=== PATIENT | male | born 1935 | race Caucasian/White ===

== ENCOUNTER 2017-06-23 18:06 | Inpatient (IN) | payer MEDICARE, BC ==
[~2017-06-23] VITALS: Ht 177.8 cm; Wt 131.0 kg
[~2017-06-23 18:06] MED LIST: AMLO2.5T PO; ENOX30P SQ; FOLI800T12 PO; LEVO75TA3 PO; OCUVTAB4 PO; OXYC1SOL5 PO; TAB-TAB PO; VITA-13 PO; Z.0.COMMODE-3:1; Z.0.CPM; Z.0.WALKERFRONT
--- NOTE | 2017-06-23 18:27 | PD ---
HPI Chief Complaint: fall Time Seen by Provider: 18:18 Travel History International Travel<30 days: No Contact w/Intl Traveler<30days: No History of Present Illness HPI 82-year-old male presents after he had a trip and fall injuring his left hip and knee. He has pain only to that area. Pain is worse with movement. He did not hit his head or blackout. He denies any other concurrent complaints. He denies any other modifying factors. This occurred shortly prior to arrival. He arrives by ambulance. PFSH Past Medical History Asthma: No Blood Disorders: No Anxiety: No Depression: No Heart Rhythm Problems: No Cancer: Yes (COLON) Cardiovascular Problems: No High Cholesterol: No Chemotherapy: No Chest Pain: No Congestive Heart Failure: No COPD: No Diabetes: No Endocrine: Yes Glaucoma: No Genitourinary: No Hepatitis: No Hiatal Hernia: No Hypertension: Yes Immune Disorder: No Musculoskeletal: Yes (ARTHRITIS, BACK ISSUES) Neurologic: No Psychiatric: No Reproductive: No Respiratory: Yes (SOB) Myocardial Infarction: No Radiation Therapy: No Sleep Apnea: No Thyroid Disease: Yes Past Surgical History Abdominal Surgery: Yes (COLON RESECTION) AICD: No Arteriovenous Shunt: No Cardiac Surgery: No Ear Surgery: No Endocrine Surgery: No Eye Surgery: Yes (INJECTION FOR MACULAR DEGENERATION) Genitourinary Surgery: No Gynecologic Surgery: No Insulin Pump: No Joint Replacement: Yes (DAHIANA. HIPS) Oral Surgery: Yes (TONSILLECTOMY AND ADNOIDS) Pacemaker: No Thoracic Surgery: No Social History Alcohol Use: Yes Tobacco Use: Yes (PIPE) Substance Use: No Allergies-Medications (Allergen,Severity, Reaction): Coded Allergies: No Known Allergies (Verified , 04/18/15) Reported Meds & Prescriptions Reported Meds & Active Scripts Active Walker Front Wheel (Z.0.walkerfront) Device 1 Unit Cpm Machine (Z.0.cpm) Device 1 Unit Commode-3:1 (Z.0.commode-3:1) Device 1 Unit Reported Vitamin D3 (Cholecalciferol) 1,000 Unit Tab 1,000 Units PO DAILY Multiple Vitamin 1 Tab 1 Tab PO DAILY Levothyroxine (Levothyroxine Sodium) 75 Mcg Tab 75 Mcg PO DAILY Amlodipine (Amlodipine Besylate) 2.5 Mg Tab 2.5 Mg PO DAILY Review of Systems Except as stated in HPI: all other systems reviewed are Neg Physical Exam Narrative General: 82 y/o patient in no apparent distress Skin: Warm and dry Eyes: Pupils equal normal NECK: no pain with palpation, nexus criteria negative Cardiovascular: Regular rate and rhythm Respiratory: Normal respiratory effort noted, clear to auscultation bilaterally Abdomen: soft, nontender, nondistended Extremities: Pain with palpation of left hip and knee, no lacerations over, neurovascularly intact, no pain with rom of other joints Neuro: awake, alert, sensation and motor grossly intact Data Data Last Documented VS Vital Signs Date Time Temp Pulse Resp B/P (MAP) Pulse Ox O2 Delivery O2 Flow Rate FiO2 06/23/17 18:34 66 16 99 Room Air 06/23/17 18:31 98.0 176/77 (110) Orders Orders Femur (Ap & Lat/2vws) (06/23/17 ) Knee, Complete (4vws) (06/23/17 ) Pelvis, Ap Only (Routine) (06/23/17 ) MDM Medical Decision Making Medical Screen Exam Complete: Yes Emergency Medical Condition: Yes Medical Record Reviewed: Yes (Past history confirmed) Differential Diagnosis Fracture, strain, dislocation Narrative Course Will check x-ray and reevaluate Physician Communication Physician Communication dr akhtar to follow xray and reevaluate Alicia Dawson MD Jun 23, 2017 18:27
[2017-06-23 18:31] VITALS: BP 176/77; PULSE 66; RESP 16; TEMP 98; O2SAT 98
[2017-06-23] MEDS ORDERED: LEVO75TA3 PO (18:37)
[2017-06-23] MEDS ORDERED: MULTTAB67 PO (18:37)
[2017-06-23] MEDS ORDERED: AMLO2.5T PO (18:37)
[2017-06-23] MEDS ORDERED: VITA100064 PO (18:37)
--- NOTE | 2017-06-23 19:12 | RADRPT ---
EXAM DATE/TIME: 06/23/2017 18:35 [facility] COMPARISON: No previous studies available for comparison. INDICATIONS : Left proximal to mid shaft femur pain post fall. MEDICAL HISTORY : Arthritis. Hypertension SURGICAL HISTORY : Total knee replacement, left. Total knee replacement, right. Bilateral hip arthroplasty ENCOUNTER: Initial ACUITY: 1 day PAIN SCORE: 10/10 LOCATION: Left femur FINDINGS: Total hip arthroplasty is seen bilaterally on the right side appears intact. There is a fracture invo lving the left proximal femur adjacent to femoral component arthroplasty. CONCLUSION: Left proximal femoral fracture. Jose Ariza MD on June 23, 2017 at 19:08 Board Certified Radiologist. This report was verified electronically.
--- NOTE | 2017-06-23 19:12 | PD ---
Physical Exam Narrative General: The patient is a well-developed well-nourished male in no acute distress. Head and Neck exam: Head is normocephalic atraumatic. Eyes: EOMI, pupils are equal round and reactive to light. Nose: Midline septum with pink mucous membranes Mouth: Dentition unremarkable. Moist mucus membranes. Posterior oropharynx is not erythematous. No tonsillar hypertrophy. Uvula midline. Airway patent. Neck: No palpable lymphadenopathy. No nuchal rigidity. No thyromegaly. Cardiovascular: Regular rate and rhythm without murmurs, gallops, or rubs. Lungs: Clear to auscultation bilaterally. No wheezes, rhonchi, or rales. Abdomen: Soft, without tenderness to palpation in all 4 quadrants of the abdomen. No guarding, rebound, or rigidity. Normal bowel sounds are audible. No tenderness on palpation of McBurney's point. Extremities: No clubbing, cyanosis, or edema. 2+ pulses in all 4 extremities. The patient denies having any having any extremity pain on palpation of his upper extremities. The right lower extremity has no tenderness on palpation and full range of motion. The Patient's left lower extremity is propped up underneath the left knee for comfort. The patient reports the pain is minimal when it is not moved. The patient reports that the pain is prominent when he attempts to flex the hip or the knee any further. There is no visible shortening or rotation. The patient has intact sensation over all digits. The patient has less than 3 second capillary refill. Back: No spinous process tenderness to palpation. No costovertebral angle tenderness to palpation. Neurologic Exam: Grossly nonfocal. Skin Exam: No rash noted. Intact skin that is warm and dry. Data Data Last Documented VS Vital Signs Date Time Temp Pulse Resp B/P (MAP) Pulse Ox O2 Delivery O2 Flow Rate FiO2 06/23/17 19:32 20 97 Room Air 06/23/17 18:34 66 06/23/17 18:31 98.0 176/77 (110) Orders Orders Femur (Ap & Lat/2vws) (06/23/17 ) Knee, Complete (4vws) (06/23/17 ) Pelvis, Ap Only (Routine) (06/23/17 ) Electrocardiogram (06/23/17 19:18) Complete Blood Count With Diff (2/4/18 19:18) Comprehensive Metabolic Panel (06/23/17 19:18) Prothrombin Time / Inr (Pt) (06/23/17 19:18) Act Partial Throm Time (Ptt) (06/23/17 19:18) Iv Access Insert/Monitor (06/23/17 19:18) Ecg Monitoring (06/23/17 19:18) Oximetry (06/23/17 19:18) Admit Order (Ed Use Only) (06/23/17 20:38) Consult Orthopedic (06/23/17 ) Labs Laboratory Tests Test 06/23/17 19:30 White Blood Count 5.6 TH/MM3 Red Blood Count 3.18 MIL/MM3 Hemoglobin 9.4 GM/DL Hematocrit 29.0 % Mean Corpuscular Volume 91.3 FL Mean Corpuscular Hemoglobin 29.7 PG Mean Corpuscular Hemoglobin Concent 32.5 % Red Cell Distribution Width 23.0 % Platelet Count 205 TH/MM3 Mean Platelet Volume 7.7 FL Neutrophils (%) (Auto) 62.8 % Lymphocytes (%) (Auto) 23.7 % Monocytes (%) (Auto) 8.0 % Eosinophils (%) (Auto) 4.9 % Basophils (%) (Auto) 0.6 % Neutrophils # (Auto) 3.5 TH/MM3 Lymphocytes # (Auto) 1.3 TH/MM3 Monocytes # (Auto) 0.5 TH/MM3 Eosinophils # (Auto) 0.3 TH/MM3 Basophils # (Auto) 0.0 TH/MM3 CBC Comment AUTO DIFF Differential Total Cells Counted 100 Neutrophils % (Manual) 64 % Band Neutrophils % 5 % Lymphocytes % 17 % Monocytes % 5 % Eosinophils % 6 % Basophils % 1 % Neutrophils # (Manual) 4.0 TH/MM3 Metamyelocytes 1 % Myelocytes 1 % Differential Comment FINAL DIFF MANUAL Platelet Estimate NORMAL Platelet Morphology Comment NORMAL Prothrombin Time 10.6 SEC Prothromb Time International Ratio 1.0 RATIO Activated Partial Thromboplast Time 22.6 SEC Blood Urea Nitrogen 13 MG/DL Creatinine 0.95 MG/DL Random Glucose 108 MG/DL Total Protein 7.5 GM/DL Albumin 3.8 GM/DL Calcium Level 9.0 MG/DL Alkaline Phosphatase 92 U/L Aspartate Amino Transf (AST/SGOT) 25 U/L Alanine Aminotransferase (ALT/SGPT) 19 U/L Total Bilirubin 0.3 MG/DL Sodium Level 142 MEQ/L Potassium Level 3.7 MEQ/L Chloride Level 109 MEQ/L Carbon Dioxide Level 29.6 MEQ/L Anion Gap 3 MEQ/L Estimat Glomerular Filtration Rate 76 ML/MIN [facility] Medical Record Reviewed: Yes Supervised Visit with TAMIKO: No Interpretation(s) Last Impressions Pelvis X-Ray 06/23/17 Signed Impressions: Service Date/Time: Friday, June 23, 2017 18:35 - CONCLUSION: Left proximal femoral fracture. Jose Ariza MD Knee X-Ray 06/23/17 Signed Impressions: Service Date/Time: Friday, June 23, 2017 18:42 - CONCLUSION: Intact total knee arthroplasty for technique. Jose Ariza MD Femur X-Ray 06/23/17 Signed Impressions: Service Date/Time: Friday, June 23, 2017 18:40 - CONCLUSION: Left proximal femoral fracture. Jose Ariza MD Narrative Course During the course of the patients emergency department visit, the patients history, examination, and differential diagnosis were reviewed with the patient. The patient was placed on a compliance monitor with oximetry and frequent blood pressure monitoring. The patient was initially seen by Dr. Dawson. Please see her complete history and physical. The patient's case was checked out to me at the conclusion of her shift to review x-ray results after the patient reportedly tripped and fell. The patient on my arrival to the room reports that he tripped and fell at approximately 5 PM. He landed on his left side. He denies hitting his head or losing consciousness. He reports that he is normally on a low-dose aspirin daily, however he recently discontinued this for a dental appointment that is upcoming. The patient reports having left leg pain since the fall. He denies having any neck pain, paresthesias, or weakness of his extremities. He reports that he has not been able to walk since the fall. The patient reports that he' s had bilateral hip replacements, bilateral knee surgeries. He reports that his orthopedic physician is Dr. Mascorro. He reports that he last had left hip surgery in 2004. The patient was initially provided morphine for pain, Zofran for nausea, normal saline maintenance IV fluids were started. The patient had an EKG done that shows a sinus rhythm heart rate of 62, QRS duration is 103 ms, QTC [address] segment elevation is noted. The patients laboratory studies were reviewed and remarkable for a white count of 5.6, hemoglobin 9.4, platelets 205 with 4.9 eosinophils. CMP is remarkable for chloride of 109, anion gap 3, glucose 108, PT 10.6, PTT 22.6 Radiology studies were reviewed and remarkable for a fracture involving the left proximal femur adjacent to the femoral component arthroplasty. Left knee x -ray is otherwise unremarkable. The patients results were discussed with the patient, including the plan of care. I explained that further testing and/ or monitoring is indicated based on the patients history, examination, and/ or laboratory findings. Therefore, I recommended admission for additional evaluation. The patient expressed understanding and was agreeable with this plan. The patient was admitted to the hospital in stable condition and sent to a bed under the care of the [facility] service. Physician Communication Physician Communication The patient's case including history, pertinent physical examination findings, and laboratory studies were discussed with Dr. Gibson. It was agreed that the patient would be admitted to the [facility] service. I spoke with the covering orthopedic physician, Dr. Rivera at 1950. He will discuss this he recommended that a consultation be placed with Dr. Mascorro for the morning. Diagnosis Primary Impression: Fracture of proximal end of left femur Qualified Codes: S72.002A - Fracture of unspecified part of neck of left femur , initial encounter for closed fracture Additional Impression: Fall Qualified Codes: W19.XXXA - Unspecified fall, initial encounter Admitting Information Admitting Physician Requests: Admit Quin Gr MD Jun 23, 2017 19:12
--- NOTE | 2017-06-23 19:30 | RADRPT ---
EXAM DATE/TIME: 06/23/2017 18:40 [facility] COMPARISON: No previous studies available for comparison. INDICATIONS : Left proximal to mid shaft femur pain post fall. MEDICAL HISTORY : Arthritis. Hypertension SURGICAL HISTORY : Total knee replacement, left. Total knee replacement, right. Bilateral hip arthroplasty ENCOUNTER: Initial ACUITY: 1 day PAIN SCORE: 10/10 LOCATION: Left Femur FINDINGS: Total hip arthroplasty is seen on the left and the acetabular component appears intact. There is a fr acture involving the proximal femur adjacent to the femoral component without any significant angulat ion or displacement. CONCLUSION: Left proximal femoral fracture. Jose Ariza MD on June 23, 2017 at 19:27 Board Certified Radiologist. This report was verified electronically.
--- NOTE | 2017-06-23 19:31 | RADRPT ---
EXAM DATE/TIME: 06/23/2017 18:42 [facility] COMPARISON: FEMUR LEFT (AP & LAT/2VWS), June 23, 2017, 18:40. INDICATIONS : Left proximal to mid shaft femur pain post fall. MEDICAL HISTORY : Arthritis. Hypertension SURGICAL HISTORY : Total knee replacement, left. Total knee replacement, right. Bilateral hip ar throplasty ENCOUNTER: Initial ACUITY: 1 day PAIN SCORE: 10/10 LOCATION: Left femur FINDINGS: Total knee arthroplasty is in place. The femoral, tibial, and patellar components appear intact. Th ere are no signs of loosening or fracture. Chronic atherosclerotic calcifications are seen involving the visualized arteries. Diffuse osteopenia is seen and there is a fracture of proximal femur discuss ed on the patient's femur radiographs. CONCLUSION: Intact total knee arthroplasty for renettaJuliana Ariza MD on June 23, 2017 at 19:28 Board Certified Radiologist. This report was verified electronically.
[2017-06-23 19:32] VITALS: RESP 20; O2SAT 97
[2017-06-23 19:44] LABS: AUTOMATED NEUTROPHIL # 3.5 TH/MM3 (1.8-7.7); BASOPHIL % 0.6 % (0.0-2.0); EOSINOPHIL # 0.3 TH/MM3 (0-0.4); EOSINOPHIL % 4.9 % (0.0-4.0); HEMOGLOBIN 9.4 GM/DL (13.0-17.0); LYMPH % 23.7 % (9.0-44.0); LYMPHOCYTE # 1.3 TH/MM3 (1.0-4.8); MEAN CELL VOLUME 91.3 FL (80.0-100.0); MEAN CORPUSCULAR HEMOGLOBIN 29.7 PG (27.0-34.0); MEAN CORPUSCULAR HGB CONC 32.5 % (32.0-36.0); MEAN PLATELET VOLUME 7.7 FL (7.0-11.0); MONOCYTE # 0.5 TH/MM3 (0-0.9); NEUT % 62.8 % (16.0-70.0); PLATELET COUNT 205 TH/MM3 (150-450); RED BLOOD COUNT 3.18 MIL/MM3 (4.50-5.90); WHITE BLOOD COUNT 5.6 TH/MM3 (4.0-11.0)
[2017-06-23 19:56] LABS: ALBUMIN 3.8 GM/DL (3.4-5.0); AST (GOT) 25 U/L (15-37); BICARBONATE 29.6 MEQ/L (21.0-32.0); BLOOD UREA NITROGEN 13 MG/DL (7-18); CHLORIDE 109 MEQ/L (98-107); CREATININE 0.95 MG/DL (0.60-1.30); GLOMERULAR FILTRATION RATE 76 ML/MIN (>89); GLUCOSE,RANDOM 108 MG/DL (74-106); SODIUM (NA) 142 MEQ/L (136-145)
[2017-06-23 20:00] LABS: ALKALINE PHOSPHATASE 92 U/L (45-117); ALT (GPT) 19 U/L (12-78); PROTHROMBIN TIME - PATIENT 10.6 SEC (9.8-11.6); TOTAL BILIRUBIN ADULT 0.3 MG/DL (0.2-1.0); TOTAL PROTEIN 7.5 GM/DL (6.4-8.2)
[2017-06-23 20:13] LABS: BANDS 5 % (0-6); BASOPHILS 1 % (0-2); LYMPHOCYTES 17 % (9-44); METAMYELOCYTES 1 % (0-1); MONOCYTES 5 % (0-8); MYELOCYTES 1 % (0-0); POLYS (SEG NEUTROPHILS) 64 % (16-70)
[2017-06-23] MEDS ORDERED: SENNOSIDES 8.6 MG TAB PO PRN (20:45)
[2017-06-23] MEDS ORDERED: ONDANSETRON HCL 4 MG/2 ML VIAL IVP PRN (20:45)
[2017-06-23] MEDS ORDERED: MAGNESIUM HYDROXIDE SUSP 30 ML CUP PO PRN (20:45)
[2017-06-23] MEDS ORDERED: BISACODYL 10 MG SUPP RECTAL PRN (20:45)
[2017-06-23] MEDS ORDERED: LACTULOSE SYRUP 20 GM/30 ML CUP PO PRN (20:45)
[2017-06-23] MEDS ORDERED: ACETAMINOPHEN 325 MG TAB PO PRN (20:45)
--- NOTE | 2017-06-23 20:47 | HHI.HP ---
[facility] Primary Care Physician Unknown Admission Diagnosis Left femur fx s/p fall Diagnoses: (1) Fall Diagnosis: Principal (2) Fracture of proximal end of left femur Diagnosis: Principal (3) HTN (hypertension) Diagnosis: Principal (4) Dehydration Diagnosis: Principal Travel History International Travel<30 Days: No Contact w/Intl Traveler <30 Da: No Traveled to Known Affected Are: No History of Present Illness This is an 82-year-old male with a PMH of HTN, Hypothyroidism and h/o Colon CA who was brought to the ER with complaints of left hip and knee pain after fall. Pt reports mechanical trip and fall at home, no LOC or head trauma. Left knee /hip pain severe, 10/10, non-radiating, worse w/ movement. On arrival, BP 176/ 77, HR 66, O2 sat 98% on RA, Afebrile. CBC at baseline. Chemistry essentially unremarkable. INR 1.0. Femur X-ray left proximal femur fracture. Knee X-ray intact total knee arthroplasty. Pelvis X-ray with left proximal femur fracture. Follows w/ Dr. Mascorro as outpatient, Dr. Rivera consulted by ER physician, plan is for surgical intervention. Review of Systems Except as stated in HPI: all other systems reviewed are Neg ROS: 14 point review of systems otherwise negative. Past Family Social History Past Medical History PMH: HTN, Hypothyroidism and h/o Colon CA Past Surgical History PAST SURGICAL HISTORY: Colon Resection, Bilateral Hip Replacement, Knee Replacement, Tonsillectomy, Eye Surgery Allergies: Coded Allergies: No Known Allergies (Verified , 04/18/15) Family History PAST FAMILY HISTORY: Reviewed. No h/o DM or CAD Social History PAST SOCIAL HISTORY: Occasional alcohol. Smokes pipe. Negative for drugs. Physical Exam Vital Signs Vital Signs Date Time Temp Pulse Resp B/P (MAP) Pulse Ox O2 Delivery O2 Flow Rate FiO2 06/23/17 19:32 20 97 Room Air 06/23/17 18:34 66 16 99 Room Air 06/23/17 18:31 98.0 66 16 176/77 (110) 98 Physical Exam PE: GENERAL: Pleasant elderly white male in no acute distress. HEENT: PERRLA, EOMI. No scleral icterus or conjunctival pallor. No lid lag or facial droop. CARDIOVASCULAR: Regular rate and rhythm. No obvious murmurs to auscultation. No chest tenderness to palpation. RESPIRATORY: No obvious rhonchi or wheezing. Clear to auscultation. Breath sounds equal bilaterally. GASTROINTESTINAL: Abdomen soft, non-tender, nondistended. BS normal. MUSCULOSKELETAL: Extremities without clubbing, cyanosis, or edema. No obvious deformities. Decreased ROM of LLE due to injury. Pulses intact. NEUROLOGICAL: Awake, alert and oriented x4. No focal neurologic deficits. Moving both upper and lower extremities spontaneously. Laboratory Laboratory Tests Test 06/23/17 19:30 White Blood Count 5.6 Red Blood Count 3.18 Hemoglobin 9.4 Hematocrit 29.0 Mean Corpuscular Volume 91.3 Mean Corpuscular Hemoglobin 29.7 Mean Corpuscular Hemoglobin Concent 32.5 Red Cell Distribution Width 23.0 Platelet Count 205 Mean Platelet Volume 7.7 Neutrophils (%) (Auto) 62.8 Lymphocytes (%) (Auto) 23.7 Monocytes (%) (Auto) 8.0 Eosinophils (%) (Auto) 4.9 Basophils (%) (Auto) 0.6 Neutrophils # (Auto) 3.5 Lymphocytes # (Auto) 1.3 Monocytes # (Auto) 0.5 Eosinophils # (Auto) 0.3 Basophils # (Auto) 0.0 CBC Comment AUTO DIFF Differential Total Cells Counted 100 Neutrophils % (Manual) 64 Band Neutrophils % 5 Lymphocytes % 17 Monocytes % 5 Eosinophils % 6 Basophils % 1 Neutrophils # (Manual) 4.0 Metamyelocytes 1 Myelocytes 1 Differential Comment FINAL DIFF MANUAL Platelet Estimate NORMAL Platelet Morphology Comment NORMAL Prothrombin Time 10.6 Prothromb Time International Ratio 1.0 Activated Partial Thromboplast Time 22.6 Blood Urea Nitrogen 13 Creatinine 0.95 Random Glucose 108 Total Protein 7.5 Albumin 3.8 Calcium Level 9.0 Alkaline Phosphatase 92 Aspartate Amino Transf (AST/SGOT) 25 Alanine Aminotransferase (ALT/SGPT) 19 Total Bilirubin 0.3 Sodium Level 142 Potassium Level 3.7 Chloride Level 109 Carbon Dioxide Level 29.6 Anion Gap 3 Estimat Glomerular Filtration Rate 76 Result Diagram: 06/23/17192906/23/171929 Caprini VTE Risk Assessment Caprini VTE Risk Assessment: Mod/High Risk (score >= 2) Caprini Risk Assessment Model Point Value = 1 Point Value = 2 Point Value = 3 Point Value = 5 Age 41-60 Minor surgery BMI > 25 kg/m2 Swollen legs Varicose veins or History of unexplained or recurrent spontaneous Oral contraceptives or hormone replacement Sepsis (< 1 month) Serious lung disease, including pneumonia (< 1 month) Abnormal pulmonary function Acute myocardial infarction Congestive heart failure (< 1 month) History of inflammatory bowel disease Medical patient at bed rest Age 61-74 Arthroscopic surgery Major open surgery (> 45 min) Laparoscopic surgery (> 45 min) Malignancy Confined to bed (> 72 hours) Immobilizing plaster cast Central venous access Age >= 75 History of VTE Family history of VTE Factor V Leiden Prothrombin [id number] Lupus anticoagulant Anticardiolipin antibodies Elevated serum homocysteine Heparin-induced thrombocytopenia Other congenital or acquired thrombophilia Stroke (< 1 month) Elective arthroplasty Hip, pelvis, or leg fracture Acute spinal cord injury (< 1 month) Prophylaxis Regimen Total Risk Factor Score Risk Level Prophylaxis Regimen 0-1 Low Early ambulation 2 Moderate Order ONE of the following: *Sequential Compression Device (SCD) *Heparin 5000 units SQ BID 3-4 Higher Order ONE of the following medications: *Heparin 5000 units SQ TID *Enoxaparin/Lovenox 40 mg SQ daily (WT < 150 kg, CrCl > 30 mL/min) *Enoxaparin/Lovenox 30 mg SQ daily (WT < 150 kg, CrCl > 10-29 mL/min) *Enoxaparin/Lovenox 30 mg SQ BID (WT < 150 kg, CrCl > 30 mL/min) AND/OR *Sequential Compression Device (SCD) 5 or more Highest Order ONE of the following medications: *Heparin 5000 units SQ TID (Preferred with Epidurals) *Enoxaparin/Lovenox 40 mg SQ daily (WT < 150 kg, CrCl > 30 mL/min) *Enoxaparin/Lovenox 30 mg SQ daily (WT < 150 kg, CrCl > 10-29 mL/min) *Enoxaparin/Lovenox 30 mg SQ BID (WT < 150 kg, CrCl > 30 mL/min) AND *Sequential Compression Device (SCD) Assessment and Plan Problem List: (1) Fall ICD Code: W19.XXXA - Unspecified fall, initial encounter Status: Acute (2) Fracture of proximal end of left femur ICD Code: S72.002A - Fracture of unspecified part of neck of left femur, initial encounter for closed fracture Status: Acute (3) HTN (hypertension) ICD Code: I10 - Essential (primary) hypertension (4) Dehydration ICD Code: E86.0 - Dehydration Assessment and Plan A/P: 1. Fall: s/p mechanical fall at home, no LOC or head trauma. Pelvic X-ray w/ left hip fracture, Knee X-ray w/ intact knee replacement, images reviewed by me. 2. Left Femur Fx: Femur X-ray w/ left proximal femur fracture, images reviewed by me. Follows w/ Dr. Mascorro as outpatient, Dr. Rivera consulted, plan is for surgical intervention. NPO after midnight, IVF, analgesics/ antiemetics as needed. Pre-op labs reviewed, essentially unremarkable. 3. Dehydration: GFR 76. BUN/creatinine normal. Check UA for possible underlying UTI. IVF for hydration, repeat labs in a.m. 4. HTN: BP 170s, likely compounded by pain from injury. Resume home Norvasc, monitor BP, add antihypertensives for systolic BP >180 5. DVT Prophylaxis: And evaluation postop. 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 7. Case discussed at length with ER physician, labs/imaging/records reviewed by me. Physician Certification 2 Midnight Certification Type: Admission for Inpatient Services Order for Inpatient Services The services are ordered in accordance with Medicare regulations or non- Medicare payer requirements, as applicable. In the case of services not specified as inpatient-only, they are appropriately provided as inpatient services in accordance with the 2-midnight benchmark. Estimated LOS (days): 2 days is the estimated time the patient will need to remain in the hospital, assuming treatment plan goals are met and no additional complications. Post-Hospital Plan: Not yet determined Problem Qualifiers (1) Fall: Qualified Codes: W19.XXXA - Unspecified fall, initial encounter (2) Fracture of proximal end of left femur: Qualified Codes: S72.002A - Fracture of unspecified part of neck of left femur , initial encounter for closed fracture Chica Gibson MD Jun 23, 2017 20:47
[2017-06-23] MEDS ORDERED: MORPHINE SULFATE 2 MG/ML INJ IV PUSH ONE (21:00)
[2017-06-23] MEDS ORDERED: ONDANSETRON HCL 4 MG/2 ML VIAL IV ONE (21:00)
[2017-06-23] MEDS: SODIUM CHLOR 0.9% 1000 ML INJ 1,000 ML IV SCH ×2 (21:00→21:22)
[2017-06-23] MEDS: SODIUM CHLORIDE 0.9% FLUSH 10 ML FLUSH IV FLUSH SCH (21:22)
[2017-06-23] MEDS: DOCUSATE SODIUM 50 MG/SENNA 8.6 MG TAB PO SCH (21:23)
[2017-06-23] MEDS ORDERED: POVIDONE IODINE 5% (ANTISEPSIS KIT) 4 APPLICATIONS EACH NARE PRN (22:00)
[2017-06-23] MEDS ORDERED: LACTATED RINGER'S 1000 ML IV PRN (22:00)
[2017-06-23] MEDS ORDERED: SODIUM CHLORID 0.9% 500 ML IV PRN (22:00)
[2017-06-23] MEDS ORDERED: CHLORHEXIDINE GLUCONATE 2 % 1 PACK (2 CLOTHS) TOPICAL PRN (22:00)
[2017-06-24] VITALS: BP 107/64; PULSE 70; RESP 16; TEMP 97.2; O2SAT 95
[2017-06-24] MEDS: MORPHINE SULFATE 2 MG/ML INJ IV PUSH PRN ×5 (03:48→20:59)
[2017-06-24] MEDS: LEVOTHYROXINE SODIUM 75 MCG TAB PO SCH ×2 (03:49→09:58)
[2017-06-24 07:42] LABS: AUTOMATED NEUTROPHIL # 4.4 TH/MM3 (1.8-7.7); BASOPHIL % 0.3 % (0.0-2.0); EOSINOPHIL # 0.2 TH/MM3 (0-0.4); EOSINOPHIL % 2.7 % (0.0-4.0); HEMATOCRIT 26.2 % (39.0-51.0); HEMOGLOBIN 8.5 GM/DL (13.0-17.0); LYMPH % 19.9 % (9.0-44.0); LYMPHOCYTE # 1.3 TH/MM3 (1.0-4.8); MEAN CELL VOLUME 91.6 FL (80.0-100.0); MEAN CORPUSCULAR HEMOGLOBIN 29.9 PG (27.0-34.0); MEAN CORPUSCULAR HGB CONC 32.6 % (32.0-36.0); MEAN PLATELET VOLUME 7.8 FL (7.0-11.0); MONO % 7.8 % (0.0-8.0); MONOCYTE # 0.5 TH/MM3 (0-0.9); NEUT % 69.3 % (16.0-70.0); PLATELET COUNT 178 TH/MM3 (150-450); RED BLOOD COUNT 2.86 MIL/MM3 (4.50-5.90); RED CELL DISTRIBUTION WIDTH 22.5 % (11.6-17.2); WHITE BLOOD COUNT 6.3 TH/MM3 (4.0-11.0)
--- NOTE | 2017-06-24 07:55 | MB ---
cc: CAHNCE FERGUSON DATE OF ADMISSION 06/23/2017 DATE OF CONSULTATION 06/24/2017 REASON FOR CONSULTATION Nondisplaced left proximal femur fracture. CONSULTING PHYSICIAN Dr. Gibson HISTORY Mr. Mcintosh is an 82-year-old male who has a history of hypertension, hypothyroidism and colon cancer. He has a history of previous left total hip arthroplasty. He states that he has had two hip replacement surgeries. He most recently had a left hip replacement done in approximately [address] Mascorro. He had a fall yesterday. He describes a mechanical fall. He denies dizziness, syncope or loss of consciousness. He has pain with movement of his left leg. He is unable to stand or bear weight on his left leg. He is currently awake and alert on the orthopedic floor. His only complaint is his left hip and thigh. PAST MEDICAL HISTORY ILLNESSES 1. Hypertension. 2. Hypothyroidism. 3. History of colon cancer. SURGERIES 1. Colon resection. 2. Bilateral hip replacement. 3. Bilateral knee replacement. 4. Tonsillectomy. 5. Eye surgery. ALLERGIES No known drug allergies. FAMILY HISTORY Noncontributory. SOCIAL HISTORY The patient denies drug use. He occasionally drinks alcohol. He smokes a pipe occasionally. REVIEW OF SYSTEMS The patient denies headache, visual changes, neck pain, chest pain, shortness of breath, abdominal pain, nausea, vomiting, fevers or chills, numbness or tingling of extremities or recent weight loss. He complains of left thigh pain. PHYSICAL EXAMINATION GENERAL: The patient is a well-developed, well-nourished 82-year male. He is awake and alert. He is alert and oriented x3. He is in no acute distress. VITAL SIGNS: Temperature 97.2, pulse 70, respirations 16, blood pressure 107/64, O2 sat 95% on room air. HEAD: The patient is normocephalic. Pupils are equal. NECK: Soft, nontender. Trachea is midline. ABDOMEN: Soft, nontender, nondistended. EXTREMITIES: Examination of the bilateral upper extremities reveals no pain with shoulder, elbow or wrist motion. He has intact sensation in all fingers. He has good capillary refill in all fingers. Skin is intact to both hands. Radial pulses are palpable. Examination of the right leg reveals no pain with hip, knee or ankle motion. The skin is intact. Dorsalis pedis pulse is palpable. Sensation is intact to the right foot. Examination of the left leg reveals a well-healed surgical incision at the left hip. He has some mild discomfort with gentle hip, internal and external rotation. He has minimal pain with gentle knee motion. The calf and thigh compartments are soft. He has no tenderness around his ankle. Dorsalis pedis pulses are palpable. Sensation is intact in the left foot. X-RAYS X-rays of the left femur were reviewed. X-rays reveal a probable nondisplaced left proximal femur periprosthetic fracture. The fracture does not appear to extend completely through the femur. The total hip arthroplasty is in good position. LABORATORY DATA The patient has a white blood cell count of 5.6, hemoglobin 9.4, and hematocrit of 29.0. INR is 1.0. BUN is 13 and creatinine is 0.95. IMPRESSIONS 1. History of bilateral total hip arthroplasty. 2. Mechanical fall with left thigh pain. 3. Probable nondisplaced left proximal femur periprosthetic fracture. 4. Hypertension. 5. Hypothyroidism. PLAN The treatment options were discussed with the patient. X-rays and lab results were reviewed. At this point I would recommend a CT scan of left femur to further delineate the left proximal femur fracture. If the fracture is incomplete, nonsurgical treatment may be an option. The patient will need to be non-weightbearing on his left leg. I will order CT scans for today and follow up with the patient afterwards. If the fracture does extend completely through the femur, surgical intervention may become necessary. The risks of surgery would include bleeding, infection, injury to arteries, nerves, blood vessels, nonunion, malunion, painful hardware as well as medical complications including blood clot, stroke, heart attack and . All questions were answered. A mid-level provider in my office, nurse practitioner or PA, may see this patient on a follow-up basis and continue to implement the objective of this plan including: Starting or adjusting medications, injections of muscle, tendon, bursa or joints, cast application, orthotic or brace application, physical therapy, further radiographic studies including x-ray, MRI, CT, ultrasounds or bone scan, vascular studies, neurologic studies, or other specialist consultations, and proceeding with surgical management as appropriate. MD YOEL Short/SULAIMAN /7:24 AM /7:42 AM
[2017-06-24 08:05] LABS: ALBUMIN 3.5 GM/DL (3.4-5.0); AST (GOT) 20 U/L (15-37); BICARBONATE 29.9 MEQ/L (21.0-32.0); BLOOD UREA NITROGEN 14 MG/DL (7-18); CALCIUM 8.6 MG/DL (8.5-10.1); CHLORIDE 109 MEQ/L (98-107); CREATININE 0.82 MG/DL (0.60-1.30); GLOMERULAR FILTRATION RATE 90 ML/MIN (>89); GLUCOSE,RANDOM 99 MG/DL (74-106); SODIUM (NA) 143 MEQ/L (136-145)
[2017-06-24 08:09] LABS: ALKALINE PHOSPHATASE 81 U/L (45-117); ALT (GPT) 16 U/L (12-78); TOTAL BILIRUBIN ADULT 0.3 MG/DL (0.2-1.0)
[2017-06-24 08:16] VITALS: BP 146/66; PULSE 66; RESP 17; TEMP 96; O2SAT 96
[2017-06-24] MEDS: SODIUM CHLORIDE 0.9% FLUSH 10 ML FLUSH IV FLUSH SCH ×2 (09:00→21:00)
[2017-06-24] MEDS: MULTIVITAMIN TAB PO SCH (09:58)
[2017-06-24] MEDS: CHOLECALCIFEROL (VIT D3) 1000 UNIT TAB PO SCH (09:59)
[2017-06-24] MEDS: DOCUSATE SODIUM 50 MG/SENNA 8.6 MG TAB PO SCH ×2 (09:59→20:48)
[2017-06-24] MEDS: amLODIPine BESYLATE 5 MG TAB PO SCH (09:59)
[2017-06-24] MEDS: SODIUM CHLOR 0.9% 1000 ML INJ 1,000 ML IV SCH ×2 (09:59→10:00)
[2017-06-24 12:09] VITALS: BP 157/60; PULSE 67; RESP 16; TEMP 96.6; O2SAT 96
--- NOTE | 2017-06-24 12:10 | HHI.PR ---
Subjective Remarks Follow-up mechanical fall/left femur fracture 06/24/17-patient seen and examined, then to the left extremity currently tolerable. Nothing by mouth. Pending CT left lower extremity to determine the extent of the fracture. by the bedside Objective Vitals Vital Signs Date Time Temp Pulse Resp B/P (MAP) Pulse Ox O2 Delivery O2 Flow Rate FiO2 06/24/17 08:16 96.0 66 17 146/66 (92) 96 06/24/17 00:00 97.2 70 16 107/64 (78) 95 06/23/17 19:32 20 97 Room Air 06/23/17 18:34 66 16 99 Room Air 06/23/17 18:31 98.0 66 16 176/77 (110) 98 I/O 06/23/17 06/23/17 06/23/17 06/24/17 06/24/17 06/24/17 07:00 15:00 23:00 07:00 15:00 23:00 Intake Total 0 ml Output Total 300 ml Balance -300 ml Intake Oral 0 ml Output Urine Total 300 ml Result Diagram: 06/24/17 0715 06/24/17 0715 Imaging Last Impressions Pelvis X-Ray 06/23/17 0000 Signed Impressions: Service Date/Time: Friday, June 23, 2017 18:35 - CONCLUSION: Left proximal femoral fracture. Jose Ariza MD Knee X-Ray 06/23/17 0000 Signed Impressions: Service Date/Time: Friday, June 23, 2017 18:42 - CONCLUSION: Intact total knee arthroplasty for technique. Jose Ariza MD Femur X-Ray 06/23/17 0000 Signed Impressions: Service Date/Time: Friday, June 23, 2017 18:40 - CONCLUSION: Left proximal femoral fracture. Jose Ariza MD Objective Remarks GENERAL: NAD SKIN: Warm and dry. HEAD: Normocephalic. EYES: No scleral icterus. No injection or drainage. NECK: Supple, trachea midline. No JVD or lymphadenopathy. CARDIOVASCULAR: Regular rate and rhythm without murmurs, gallops, or rubs. RESPIRATORY: Breath sounds equal bilaterally. No accessory muscle use. GASTROINTESTINAL: Abdomen soft, non-tender, nondistended. MUSCULOSKELETAL: No cyanosis, or edema. LLE internal rotated with limited ROM BACK: Nontender without obvious deformity. No CVA tenderness. A/P Problem List: (1) Fall ICD Code: W19.XXXA - Unspecified fall, initial encounter Status: Acute (2) Fracture of proximal end of left femur ICD Code: S72.002A - Fracture of unspecified part of neck of left femur, initial encounter for closed fracture Status: Acute (3) HTN (hypertension) ICD Code: I10 - Essential (primary) hypertension (4) Dehydration ICD Code: E86.0 - Dehydration Assessment and Plan 82-year-old man with 1. Fall: s/p mechanical fall at home, no LOC or head trauma. Pelvic X-ray w/ left hip fracture, Knee X-ray w/ intact knee replacement 2. Left Femur Fx: Femur X-ray w/ left proximal femur fracture, Seen by Orthopedic surgery pending CT lower extremity NPO , IVF, analgesics/antiemetics as needed. 3. Dehydration: GFR 76. BUN/creatinine normal. Continue IVF for hydration 4. HTN Continue home Norvasc 5. DVT Prophylaxis: And evaluation postop. Problem Qualifiers (1) Fall: Qualified Codes: W19.XXXA - Unspecified fall, initial encounter (2) Fracture of proximal end of left femur: Qualified Codes: S72.002A - Fracture of unspecified part of neck of left femur , initial encounter for closed fracture Skinny Tuttle MD Jun 24, 2017 12:10
[2017-06-24] MEDS: SODIUM CHLORIDE 0.9% FLUSH 10 ML FLUSH IV FLUSH PRN ×2 (15:29→16:13)
--- NOTE | 2017-06-24 16:12 | RADRPT ---
EXAM DATE/TIME: 06/24/2017 15:49 [facility] COMPARISON: FEMUR LEFT (AP & LAT/2VWS), June 23, 2017, 18:40. INDICATIONS : Trauma, fall. Evaluate fracture. RADIATION DOSE: 17.01 CTDIvol (mGy) MEDICAL HISTORY : Hypertension. SURGICAL HISTORY : Hip replacement. Knee replacement. ENCOUNTER: Initial ACUITY: 1 day PAIN SCALE: 10/10 LOCATION: Left knee TECHNIQUE: Volumetric scanning of the femur was performed. Using automated exposure control and adjustment of the mA and/or kV according to patient size, radiation dose was kept as low as reasonabl y achievable to obtain optimal diagnostic quality images. DICOM format image data is available elec tronically for review and comparison. FINDINGS: Again seen is the spiral fracture across the femoral component of the bipolar arthroplasty. Moderate artifact is present. The patient does exist just below the lesser trochanter. CONCLUSION: Spiral fracture as above. Adrian Greco MD FACR on June 24, 2017 at 16:08 Board Certified Radiologist. This report was verified electronically.
[2017-06-24 16:40] VITALS: BP 162/64; PULSE 74; RESP 17; TEMP 96.3; O2SAT 94
[2017-06-24 20:16] VITALS: BP 179/69; PULSE 79; RESP 18; TEMP 97.9; O2SAT 95
--- NOTE | 2017-06-24 22:11 | EKG ---
Date Performed: 06/23/2017 Time Performed: 19:38:28 PTAGE: 82 years EKG: Sinus rhythm INFERIOR MYOCARDIAL INFARCTION ABNORMAL ECG NO PREVIOUS TRACING DOCTOR: Jame Fregoso Interpretating Date/Time 06/24/2017 22:03:48
[2017-06-24 23:39] VITALS: BP 190/70; PULSE 79; RESP 19; TEMP 98.5; O2SAT 94
[2017-06-25] MEDS ORDERED: ENALAPRILAT 2.5 MG/2 ML VIAL IV PUSH ONE (00:15)
[2017-06-25] MEDS: SODIUM CHLOR 0.9% 1000 ML INJ 1,000 ML IV SCH ×2 (00:34)
[2017-06-25 05:51] VITALS: BP 171/68; PULSE 80; RESP 18; TEMP 98; O2SAT 95
[2017-06-25] MEDS: LEVOTHYROXINE SODIUM 75 MCG TAB PO SCH (05:58)
[2017-06-25] MEDS: MORPHINE SULFATE 2 MG/ML INJ IV PUSH PRN (06:04)
--- NOTE | 2017-06-25 06:40 | PD.ORT.PN ---
Subjective Subjective Remarks s/p left periprosthetic femur fx no changes. states pain in hip with motion. Objective Vitals Vital Signs Date Time Temp Pulse Resp B/P (MAP) Pulse Ox O2 Delivery O2 Flow Rate FiO2 06/25/17 05:51 98.0 80 18 171/68 (102) 95 06/24/17 23:39 98.5 79 19 190/70 (110) 94 06/24/17 20:16 97.9 79 18 179/69 (105) 95 06/24/17 16:40 96.3 74 17 162/64 (96) 94 06/24/17 12:09 96.6 67 16 157/60 (92) 96 06/24/17 08:16 96.0 66 17 146/66 (92) 96 I/O 06/24/17 06/24/17 06/24/17 06/25/17 06/25/17 06/25/17 07:00 15:00 23:00 07:00 15:00 23:00 Intake Total 0 ml 902 ml 360 ml 1957 ml Output Total 300 ml 600 ml 250 ml Balance -300 ml 902 ml -240 ml 1707 ml Intake Oral 0 ml 360 ml 360 ml IV Total 902 ml 1597 ml Output Urine Total 300 ml 600 ml 250 ml # Voids 3 # Bowel Movements 0 0 Result Diagram: 06/24/1715 06/24/1715 Objective Remarks LLE: pain in hip with motion. full sensation distally. Assessment & Plan Assessment and Plan 1) Left Periprosthetic Proximal Femur Fx -CT scan reviewed. well aligned. would recommend nonop treatment at this time. as long as maintains current alignment, reasonable chance it will heal well on own. if shifts at all, will require surgical intervention -TTWB -no quad sets or leg lifts -PT consulted -will likely require rehab placement -will monitor and follow along. -lovenox 30mg BID started today Simba Soto/First Maria Del Carmen MAI Jun 25, 2017 06:40
[2017-06-25] MEDS ORDERED: VITA2000 PO (06:42)
[2017-06-25] MEDS ORDERED: WALKER/ADULT/FO1 MIS (06:42)
[2017-06-25] MEDS ORDERED: HYDR-3580 PO (06:42)
[2017-06-25] MEDS ORDERED: CALCTAB19 PO (06:42)
[2017-06-25] MEDS ORDERED: XARE10TA PO (06:42)
[2017-06-25] MEDS ORDERED: VITA500012 PO (06:42)
[2017-06-25 08:00] VITALS: BP 181/66; PULSE 85; RESP 17; TEMP 99.9; O2SAT 92
[2017-06-25] MEDS: DOCUSATE SODIUM 50 MG/SENNA 8.6 MG TAB PO SCH ×2 (10:05→23:05)
[2017-06-25] MEDS: amLODIPine BESYLATE 5 MG TAB PO SCH (10:05)
[2017-06-25] MEDS: CHOLECALCIFEROL (VIT D3) 1000 UNIT TAB PO SCH (10:05)
--- NOTE | 2017-06-25 10:05 | HHI.PR ---
Subjective Remarks Follow-up mechanical fall/left femur fracture 06/24/17-patient seen and examined, then to the left extremity currently tolerable. Nothing by mouth. Pending CT left lower extremity to determine the extent of the fracture. by the bedside 06/25/17-patient seen and examined, complains of left lower extremity soreness and pain with movement. Afebrile. CT left lower extremity with spiral fracture of the left proximal femur Objective Vitals Vital Signs Date Time Temp Pulse Resp B/P (MAP) Pulse Ox O2 Delivery O2 Flow Rate FiO2 06/25/17 08:00 99.9 85 17 181/66 (104) 92 06/25/17 05:51 98.0 80 18 171/68 (102) 95 06/24/17 23:39 98.5 79 19 190/70 (110) 94 06/24/17 20:16 97.9 79 18 179/69 (105) 95 06/24/17 16:40 96.3 74 17 162/64 (96) 94 06/24/17 12:09 96.6 67 16 157/60 (92) 96 I/O 06/24/17 06/24/17 06/24/17 06/25/17 06/25/17 06/25/17 07:00 15:00 23:00 07:00 15:00 23:00 Intake Total 0 ml 902 ml 360 ml 1957 ml Output Total 300 ml 600 ml 250 ml Balance -300 ml 902 ml -240 ml 1707 ml Intake Oral 0 ml 360 ml 360 ml IV Total 902 ml 1597 ml Output Urine Total 300 ml 600 ml 250 ml # Voids 3 # Bowel Movements 0 0 Result Diagram: 06/24/17 0715 06/24/17 0715 Imaging Last Impressions Lower Extremity CT 06/24/17 0000 Signed Impressions: Service Date/Time: Saturday, June 24, 2017 15:49 - CONCLUSION: Spiral fracture as above. Adrian Greco MD FACR Pelvis X-Ray 06/23/17 0000 Signed Impressions: Service Date/Time: Friday, June 23, 2017 18:35 - CONCLUSION: Left proximal femoral fracture. Jose Ariza MD Knee X-Ray 06/23/17 0000 Signed Impressions: Service Date/Time: Friday, June 23, 2017 18:42 - CONCLUSION: Intact total knee arthroplasty for technique. Jose Ariza MD Femur X-Ray 06/23/17 0000 Signed Impressions: Service Date/Time: Friday, June 23, 2017 18:40 - CONCLUSION: Left proximal femoral fracture. Jose Ariza MD Objective Remarks GENERAL: NAD SKIN: Warm and dry. HEAD: Normocephalic. EYES: No scleral icterus. No injection or drainage. NECK: Supple, trachea midline. No JVD or lymphadenopathy. CARDIOVASCULAR: Regular rate and rhythm without murmurs, gallops, or rubs. RESPIRATORY: Breath sounds equal bilaterally. No accessory muscle use. GASTROINTESTINAL: Abdomen soft, non-tender, nondistended. MUSCULOSKELETAL: No cyanosis, or edema. LLE internal rotated with limited ROM BACK: Nontender without obvious deformity. No CVA tenderness. A/P Problem List: (1) Fall ICD Code: W19.XXXA - Unspecified fall, initial encounter Status: Acute (2) Fracture of proximal end of left femur ICD Code: S72.002A - Fracture of unspecified part of neck of left femur, initial encounter for closed fracture Status: Acute (3) HTN (hypertension) ICD Code: I10 - Essential (primary) hypertension (4) Dehydration ICD Code: E86.0 - Dehydration Assessment and Plan 82-year-old man with 1. Fall: s/p mechanical fall at home, no LOC or head trauma. Pelvic X-ray w/ left hip fracture, Knee X-ray w/ intact knee replacement 2. Left Femur Fx: Femur X-ray w/ left proximal femur fracture, CT left lower extremity with spiral fracture of the left proximal femur Seen by Orthopedic surgery and recommends continue nonoperative management analgesics/antiemetics as needed. -TTWB -no quad sets or leg lifts -Lovenox 30mg BID 3. Dehydration: GFR 76. BUN/creatinine normal. Resolved ; will d/c IVF 4. HTN Labile BP likely 2/2 Poorly controlled pain management vs IVF hydration Continue home Norvasc and start Clonidine 0.1mg Q12H 5. DVT Prophylaxis: Lovenox 30mg BID Problem Qualifiers (1) Fall: Qualified Codes: W19.XXXA - Unspecified fall, initial encounter (2) Fracture of proximal end of left femur: Qualified Codes: S72.002A - Fracture of unspecified part of neck of left femur , initial encounter for closed fracture Skinny Tuttle MD Jun 25, 2017 10:05
[2017-06-25] MEDS: ENOXAPARIN SODIUM 30 MG/0.3 ML SYRINGE SQ SCH ×2 (10:06→19:55)
[2017-06-25] MEDS: SODIUM CHLORIDE 0.9% FLUSH 10 ML FLUSH IV FLUSH SCH ×2 (10:07→23:07)
[2017-06-25] MEDS: MULTIVITAMIN TAB PO SCH (10:08)
[2017-06-25] MEDS: ACETAMINOPHEN/HYDROcodone 325 MG/5 MG TAB PO PRN ×3 (10:14→19:55)
[2017-06-25] MEDS: cloNIDine HCL 0.1 MG TAB PO SCH ×2 (11:37→23:05)
[2017-06-25 12:00] VITALS: BP 173/69; PULSE 82; RESP 17; TEMP 98.4; O2SAT 92
[2017-06-25 16:00] VITALS: BP 148/63; PULSE 79; RESP 17; TEMP 96.8; O2SAT 94
[2017-06-25 20:09] VITALS: BP 147/61; PULSE 67; RESP 19; TEMP 96.8; O2SAT 96
[2017-06-25 23:00] VITALS: BP 156/60; PULSE 75; RESP 18; TEMP 97.6; O2SAT 97
[2017-06-26] MEDS: LEVOTHYROXINE SODIUM 75 MCG TAB PO SCH (06:15)
[2017-06-26] MEDS: ACETAMINOPHEN/HYDROcodone 325 MG/5 MG TAB PO PRN ×2 (06:16→10:58)
[2017-06-26] MEDS: ENOXAPARIN SODIUM 30 MG/0.3 ML SYRINGE SQ SCH (06:16)
--- NOTE | 2017-06-26 06:32 | PD.ORT.PN ---
Subjective Subjective Remarks s/p left periprosthetic femur fx no changes. states pain in hip with motion. Objective Vitals Vital Signs Date Time Temp Pulse Resp B/P (MAP) Pulse Ox O2 Delivery O2 Flow Rate FiO2 06/25/17 23:00 97.6 75 18 156/60 (92) 97 06/25/17 20:09 96.8 67 19 147/61 (89) 96 06/25/17 16:00 96.8 79 17 148/63 (91) 94 06/25/17 12:00 98.4 82 17 173/69 (103) 92 06/25/17 08:00 99.9 85 17 181/66 (104) 92 I/O 06/25/17 06/25/17 06/25/17 06/26/17 06/26/17 06/26/17 07:00 15:00 23:00 07:00 15:00 23:00 Intake Total 1957 ml 380 ml 720 ml 480 ml Output Total 250 ml 350 ml Balance 1707 ml 380 ml 370 ml 480 ml Intake Oral 360 ml 380 ml 720 ml 480 ml IV Total 1597 ml Output Urine Total 250 ml 350 ml # Voids 5 2 # Bowel Movements 0 0 0 0 Result Diagram: 06/24/17 0715 06/24/17 0715 Objective Remarks LLE: pain in hip with motion. full sensation distally. Assessment & Plan Assessment and Plan 1) Left Periprosthetic Proximal Femur Fx -will order new xray today to ensure fracture maintaining position -TTWB -no quad sets or leg lifts -PT consulted -will be discharged to rehab today after XRAY done -will monitor and follow along. -lovenox 30mg BID -DC with xarelto -f/u with Dr Ceja or PA in 2 weeks Simba Soto/Patient Partner PAU Jun 26, 2017 06:32
[2017-06-26] MEDS: SODIUM CHLORIDE 0.9% FLUSH 10 ML FLUSH IV FLUSH SCH (09:00)
[2017-06-26] MEDS: DOCUSATE SODIUM 50 MG/SENNA 8.6 MG TAB PO SCH (09:00)
[2017-06-26] MEDS: CHOLECALCIFEROL (VIT D3) 1000 UNIT TAB PO SCH (09:00)
[2017-06-26] MEDS: MULTIVITAMIN TAB PO SCH (09:00)
[2017-06-26] MEDS: amLODIPine BESYLATE 5 MG TAB PO SCH (09:00)
[2017-06-26] MEDS: cloNIDine HCL 0.1 MG TAB PO SCH (09:00)
--- NOTE | 2017-06-26 09:31 | RADRPT ---
EXAM DATE/TIME: 06/26/2017 08:29 [facility] COMPARISON: FEMUR LEFT (AP & LAT/2VWS), June 23, 2017, 18:40. INDICATIONS : Fracture. Patient complains of severe pain in left leg. MEDICAL HISTORY : Hypertension. SURGICAL HISTORY : Hip replacement. Knee replacement. ENCOUNTER: Subsequent ACUITY: 4 - 6 days PAIN SCORE: 10/10 LOCATION: Left Femur. FINDINGS: Nondisplaced fracture of the proximal femur at the level of the femoral component of the prosthesis i s present. No dislocation is seen. A left knee arthroplasty is present in satisfactory position. CONCLUSION: 1. Unchanged proximal left femur fracture. The alignment is anatomic. Khari Jauregui MD on June 26, 2017 at 9:27 Board Certified Radiologist. This report was verified electronically.
== END 2017-06-26 11:05 | DRG 536 ==
LOC: NEPC 18:06 → NEDA 20:40 → N06B 21:35
PROVIDERS: ADMIT Internal Medicine; ATTEND Internal Medicine
DX: S72.002A Fracture of unspecified part of neck of left femur, initial encounter for closed fracture (principal); E86.0 Dehydration; I10 Essential (primary) hypertension; Z96.643 Presence of artificial hip joint, bilateral; E03.9 Hypothyroidism, unspecified; F17.290 Nicotine dependence, other tobacco product, uncomplicated; W01.0XXA Fall on same level from slipping, tripping and stumbling without subsequent striking against object, initial encounter; Y93.9 Activity, unspecified; Y92.009 Unspecified place in unspecified non-institutional (private) residence as the place of occurrence of the external cause; Z96.653 Presence of artificial knee joint, bilateral; Z85.038 Personal history of other malignant neoplasm of large intestine
CPT/HCPCS: 72170; 73552; 73564; 73700; 80053; 85007; 85025; 85027; 85610; 85730; 93005; 99285; J1650; J2270; J2405; J7030

== ENCOUNTER 2017-08-29 13:07 | Inpatient (IN) | payer MEDICARE, BC ==
[~2017-08-29] VITALS: Ht 177.8 cm; Wt 110.4 kg
[~2017-08-29 13:07] MED LIST changes: +CALCTAB19 PO; -ENOX30P SQ; -FOLI800T12 PO; +HYDR-3580 PO; +MULTTAB67 PO; -OCUVTAB4 PO; -OXYC1SOL5 PO; -TAB-TAB PO; -VITA-13 PO; +VITA100064 PO; +VITA2000 PO; +VITA500012 PO; +WALKER/ADULT/FO1 MIS; +XARE10TA PO
[2017-08-29 13:19] VITALS: BP 147/82; PULSE 133; RESP 22; TEMP 97.7; O2SAT 98
[2017-08-29] MEDS ORDERED: SODIUM CHLORIDE 0.9% FLUSH 10 ML FLUSH IVF PRN (13:30)
--- NOTE | 2017-08-29 13:33 | PD ---
HPI Chief Complaint: Tachycardia Time Seen by Provider: 13:18 Travel History International Travel<30 days: No Contact w/Intl Traveler<30days: No Traveled to known affect area: No History of Present Illness HPI 82-year-old male presents with elevated heart rate for the past week. His called his primary who advised him to come to the emergency room today. In the ambulance his heart rate was in the 130s and regular. Patient states that Super Bowsaturday he slipped and fell and sustained a spiral fracture to his left femur that given he has replacement to his knee in that area they have been working on a nonoperative management with him being nonweightbearing on that leg. He states that his last follow-up with that was in July. He denies significant other complaints at this time. Quality is regular. Severity is in the 130s. He denies specific modifying factors. He denies recurrent history of this. PFSH Past Medical History Narrative Medical Confirmed and reviewed records Asthma: No Blood Disorders: No Anxiety: No Depression: No Heart Rhythm Problems: No Cancer: Yes (COLON) Cardiovascular Problems: No High Cholesterol: No Chemotherapy: No Chest Pain: No Congestive Heart Failure: No COPD: No Diabetes: No Endocrine: Yes Glaucoma: No Genitourinary: No Hepatitis: No Hiatal Hernia: No Hypertension: Yes Immune Disorder: No Musculoskeletal: Yes (ARTHRITIS, BACK ISSUES) Neurologic: No Psychiatric: No Reproductive: No Respiratory: Yes (SOB) Myocardial Infarction: No Radiation Therapy: No Sleep Apnea: No Thyroid Disease: Yes Past Surgical History Narrative Surgical Confirmed and reviewed records Abdominal Surgery: Yes (COLON RESECTION) AICD: No Arteriovenous Shunt: No Cardiac Surgery: No Ear Surgery: No Endocrine Surgery: No Eye Surgery: Yes (INJECTION FOR MACULAR DEGENERATION) Genitourinary Surgery: No Gynecologic Surgery: No Insulin Pump: No Joint Replacement: Yes (DAHIANA. HIPS) Oral Surgery: Yes (TONSILLECTOMY AND ADNOIDS) Pacemaker: No Thoracic Surgery: No Other Surgery: Yes Social History Alcohol Use: Yes (occa) Tobacco Use: No Substance Use: No Allergies-Medications (Allergen,Severity, Reaction): Coded Allergies: No Known Allergies (Verified Allergy, Unknown, 06/24/17) Reported Meds & Prescriptions Reported Meds & Active Scripts Active Calcium 600+D 200 (Calcium Carbonate-Vitamin D) 600-200 Mg-Unit Tab 1 Tab PO BID Vitamin D3 (Cholecalciferol) 2,000 Unit Cap 2,000 Units PO DAILY Hydrocodone-Acetaminophen 7.5 Mg-325 Mg Tab 1 Tab PO Q4H PRN Walker/Adult/Folding (Device) 1 Mis Mis Ea .XX DIRECTED Walker Front Wheel (Z.0.walkerfront) Device 1 Unit Cpm Machine (Z.0.cpm) Device 1 Unit Commode-3:1 (Z.0.commode-3:1) Device 1 Unit Reported Gabapentin 100 Mg Cap 100 Mg PO TID Multiple Vitamin 1 Tab 1 Tab PO DAILY Levothyroxine (Levothyroxine Sodium) 75 Mcg Tab 75 Mcg PO DAILY Amlodipine (Amlodipine Besylate) 2.5 Mg Tab 10 Mg PO DAILY Review of Systems Except as stated in HPI: all other systems reviewed are Neg Physical Exam Narrative GENERAL: 82-year-old male in no apparent distress SKIN: Focused skin assessment warm/dry. HEAD: Atraumatic. Normocephalic. EYES: Pupils equal and round. No scleral icterus. No injection or drainage. ENT: No nasal bleeding or discharge. Mucous membranes pink and moist. NECK: Trachea midline. CARDIOVASCULAR: Tachycardic rate and regular rhythm. RESPIRATORY: No accessory muscle use. Clear to auscultation. Breath sounds equal bilaterally. GASTROINTESTINAL: Abdomen soft, non-tender, nondistended. MUSCULOSKELETAL: No obvious deformities. No clubbing. No cyanosis. Mild pitting edema to bilateral lower extremities, mild pain noted over left leg just above the knee which has been chronic since his fracture NEUROLOGICAL: Awake and alert. No obvious cranial nerve deficits. Moves all extremities. Normal speech. Data Data Last Documented VS Vital Signs Date Time Temp Pulse Resp B/P (MAP) Pulse Ox O2 Delivery O2 Flow Rate FiO2 08/29/17 16:14 97 16 138/75 (96) 96 Room Air 08/29/17 13:19 97.7 Orders Orders Electrocardiogram (08/29/17 13:25) B-Type Natriuretic Peptide (08/29/17 13:25) Ckmb (Isoenzyme) Profile (08/29/17 13:25) Complete Blood Count With Diff (08/29/17 13:25) Comprehensive Metabolic Panel (08/29/17 13:25) Magnesium (Mg) (08/29/17 13:25) Prothrombin Time / Inr (Pt) (08/29/17 13:25) Act Partial Throm Time (Ptt) (08/29/17 13:25) Troponin I (08/29/17 13:25) Chest, Single Ap (08/29/17 13:25) Ecg Monitoring (08/29/17 13:25) Bilateral Bp Monitoring (08/29/17 13:25) Iv Access Insert/Monitor (08/29/17 13:25) Oximetry (08/29/17 13:25) Sodium Chloride 0.9% Flush (Ns Flush) (08/29/17 13:30) Femur (Ap & Lat/2vws) (08/29/17 ) Diltiazem Inj (Cardizem Inj) (08/29/17 13:45) Metoprolol Tartrate Inj (Lopressor Inj) (08/29/17 14:06) Sodium Chlor 0.9% 1000 Ml Inj (Ns 1000 M (08/29/17 14:45) D-Dimer (08/29/17 14:36) Diltiazem (Cardizem) (08/29/17 15:30) Ventilation & Perfusion Scan (08/29/17 ) Admit Order (Ed Use Only) (08/29/17 17:03) Labs Laboratory Tests Test 08/29/17 13:38 White Blood Count 7.7 TH/MM3 Red Blood Count 3.04 MIL/MM3 Hemoglobin 8.2 GM/DL Hematocrit 25.9 % Mean Corpuscular Volume 85.3 FL Mean Corpuscular Hemoglobin 27.1 PG Mean Corpuscular Hemoglobin Concent 31.7 % Red Cell Distribution Width 22.7 % Platelet Count 344 TH/MM3 Mean Platelet Volume 7.8 FL Neutrophils (%) (Auto) 65.4 % Lymphocytes (%) (Auto) 20.1 % Monocytes (%) (Auto) 7.1 % Eosinophils (%) (Auto) 7.1 % Basophils (%) (Auto) 0.3 % Neutrophils # (Auto) 5.0 TH/MM3 Lymphocytes # (Auto) 1.6 TH/MM3 Monocytes # (Auto) 0.5 TH/MM3 Eosinophils # (Auto) 0.5 TH/MM3 Basophils # (Auto) 0.0 TH/MM3 CBC Comment AUTO DIFF Differential Comment AUTO DIFF CONFIRMED Ovalocytes 1+ Prothrombin Time 10.5 SEC Prothromb Time International Ratio 1.0 RATIO Activated Partial Thromboplast Time 20.2 SEC D-Dimer Quantitative (PE/DVT) 2.35 MG/L FEU Blood Urea Nitrogen 31 MG/DL Creatinine 2.40 MG/DL Random Glucose 94 MG/DL Total Protein 8.4 GM/DL Albumin 3.8 GM/DL Calcium Level 10.8 MG/DL Magnesium Level 2.2 MG/DL Alkaline Phosphatase 86 U/L Aspartate Amino Transf (AST/SGOT) 13 U/L Alanine Aminotransferase (ALT/SGPT) 18 U/L Total Bilirubin 0.3 MG/DL Sodium Level 144 MEQ/L Potassium Level 3.8 MEQ/L Chloride Level 107 MEQ/L Carbon Dioxide Level 27.6 MEQ/L Anion Gap 9 MEQ/L Estimat Glomerular Filtration Rate 26 ML/MIN Total Creatine Kinase 23 U/L Troponin I LESS THAN 0.02 NG/ML B-Type Natriuretic Peptide 149 PG/ML MDM Medical Decision Making Medical Screen Exam Complete: Yes Emergency Medical Condition: Yes Medical Record Reviewed: Yes (Past history confirmed) Interpretation(s) EKG is atrial flutter at 135 without STEMI criteria CBC & BMP Diagram 08/29/17 13:38 Total Protein 8.4 H, Albumin 3.8, Calcium Level 10.8 H, Magnesium Level 2.2, Alkaline Phosphatase 86, Aspartate Amino Transf (AST/SGOT) 13 L, Alanine Aminotransferase (ALT/SGPT) 18, Total Bilirubin 0.3 Last 24 hours Impressions Chest X-Ray 08/29/17 1325 Signed Impressions: Service Date/Time: August 13:56 - CONCLUSION: Linear opacity at the left lung base representing either subsegmental atelectasis or scar. Otherwise, no acute finding is identified. Armando Barbosa MD Differential Diagnosis A flutter, SVT, PE, anemia, electrolyte abnormality Narrative Course We will check blood work, x-ray imaging and CT pulmonary and dose with 10 of Cardizem and reevaluate the hospital is out of cardizem so will change to lopressor 2.5 mg and monitor Will discuss with cardiology given persistent tachycardia and out of Cardizem. Will place on p.o. Cardizem and as needed IV metoprolol and admit to the hospital for further care, patient updated about results of acute renal failure and stable anemia and agrees to plan, at bedside, VQ pending Physician Communication Physician Communication dr edward states to place on cardizem 60 mg po q6 and give metoprolol 5mg iv q 1 hour as needed for rate control dr hawkins agrees to admit Diagnosis Primary Impression: Atrial flutter with rapid ventricular response Additional Impression: Acute kidney injury (nontraumatic) Admitting Information Admitting Physician Requests: Admit Alicia Dawson MD Aug 29, 2017 13:33
[2017-08-29] MEDS ORDERED: GABA100C4 PO (13:36)
[2017-08-29] MEDS ORDERED: DILTIAZEM HCL 25 MG/5 ML VIAL IV ONE (13:45)
[2017-08-29 14:02] LABS: BASOPHIL % 0.3 % (0.0-2.0); EOSINOPHIL # 0.5 TH/MM3 (0-0.4); EOSINOPHIL % 7.1 % (0.0-4.0); HEMATOCRIT 25.9 % (39.0-51.0); HEMOGLOBIN 8.2 GM/DL (13.0-17.0); LYMPH % 20.1 % (9.0-44.0); LYMPHOCYTE # 1.6 TH/MM3 (1.0-4.8); MEAN CELL VOLUME 85.3 FL (80.0-100.0); MEAN CORPUSCULAR HEMOGLOBIN 27.1 PG (27.0-34.0); MEAN CORPUSCULAR HGB CONC 31.7 % (32.0-36.0); MEAN PLATELET VOLUME 7.8 FL (7.0-11.0); MONO % 7.1 % (0.0-8.0); MONOCYTE # 0.5 TH/MM3 (0-0.9); NEUT % 65.4 % (16.0-70.0); PLATELET COUNT 344 TH/MM3 (150-450); RED BLOOD COUNT 3.04 MIL/MM3 (4.50-5.90); RED CELL DISTRIBUTION WIDTH 22.7 % (11.6-17.2); WHITE BLOOD COUNT 7.7 TH/MM3 (4.0-11.0)
[2017-08-29] MEDS ORDERED: METOPROLOL TARTRATE 5 MG/5 ML VIAL IV PUSH STA (14:06)
[2017-08-29 14:16] LABS: PROTHROMBIN TIME - PATIENT 10.5 SEC (9.8-11.6)
[2017-08-29 14:25] VITALS: BP 160/71; PULSE 132; RESP 21; O2SAT 99
[2017-08-29 14:25] LABS: ALBUMIN 3.8 GM/DL (3.4-5.0); ALT (GPT) 18 U/L (12-78); AST (GOT) 13 U/L (15-37); BICARBONATE 27.6 MEQ/L (21.0-32.0); BLOOD UREA NITROGEN 31 MG/DL (7-18); CALCIUM 10.8 MG/DL (8.5-10.1); CHLORIDE 107 MEQ/L (98-107); GLOMERULAR FILTRATION RATE 26 ML/MIN (>89); GLUCOSE,RANDOM 94 MG/DL (74-106); MAGNESIUM 2.2 MG/DL (1.5-2.5); SODIUM (NA) 144 MEQ/L (136-145)
[2017-08-29 14:29] LABS: ALKALINE PHOSPHATASE 86 U/L (45-117); TOTAL BILIRUBIN ADULT 0.3 MG/DL (0.2-1.0); TOTAL PROTEIN 8.4 GM/DL (6.4-8.2); TROPONIN I LESS THAN 0.02 NG/ML (0.02-0.05)
[2017-08-29] MEDS ORDERED: SODIUM CHLOR 0.9% 1000 ML INJ 1,000 ML IV ONE (14:45)
[2017-08-29 14:48] LABS: OVALOCYTES 1+ (NORMAL)
--- NOTE | 2017-08-29 14:55 | RADRPT ---
EXAM DATE/TIME: 08/29/2017 13:56 [facility] COMPARISON: CHEST PA & LAT, April 08, 2015, 9:22. INDICATIONS : Pt has had elevated blood pressure 5 days. MEDICAL HISTORY : None. SURGICAL HISTORY : Total knee replacement, left. Total knee replacement, right. RT and LT hip replacement. ENCOUNTER: Initial ACUITY: 4 - 6 days PAIN SCORE: 0/10 LOCATION: Bilateral chest FINDINGS: 2 AP views of the chest demonstrate a normal-sized cardiac silhouette. Lungs are underinflated. Linea r opacity is present at the left lung base. No effusion, consolidation, or pneumothorax is visualized . The bones and soft tissues demonstrate no acute finding. There are degenerative changes of the thor acic spine. CONCLUSION: Linear opacity at the left lung base representing either subsegmental atelectasis or scar. Otherwise, no acute finding is identified. Armando Barbosa MD on August 29, 2017 at 14:51 Board Certified Radiologist. This report was verified electronically.
--- NOTE | 2017-08-29 15:17 | RADRPT ---
EXAM DATE/TIME: 08/29/2017 13:51 [facility] COMPARISON: FEMUR LEFT (AP & LAT/2VWS), June 26, 2017, 8:29. INDICATIONS : Pt fell jun 5. Pain when moving LT leg up and down. Pt is non-weight bearing on LT leg. MEDICAL HISTORY : None. SURGICAL HISTORY : Total knee replacement, left. Total knee replacement, right. RT and LT Hip Replacement ENCOUNTER: Initial ACUITY: 4 - 6 months PAIN SCORE: 9/10 LOCATION: Left Leg FINDINGS: There is no fracture or dislocation. The patient is status post left total hip replacement with prost hesis in good position. Left total knee replacement is also noted. CONCLUSION: No acute fracture or dislocation. Bayron Boston MD on August 29, 2017 at 15:13 Board Certified Radiologist. This report was verified electronically.
[2017-08-29] MEDS ORDERED: DILTIAZEM HCL 60 MG TAB PO ONE (15:30)
[2017-08-29 16:14] VITALS: BP 138/75; PULSE 97; RESP 16; O2SAT 96
[2017-08-29] MEDS ORDERED: SODIUM CHLORIDE 0.9% FLUSH 10 ML FLUSH IV FLUSH PRN (17:30)
[2017-08-29] MEDS ORDERED: NALOXONE HCL 0.4 MG/ML AMP IV PUSH PRN (17:30)
--- NOTE | 2017-08-29 18:24 | RADRPT ---
EXAM DATE/TIME: 08/29/2017 17:41 [facility] COMPARISON: CHEST SINGLE AP, August 29, 2017, 13:56. INDICATIONS : Shortness of breath, elevated heart rate. DOSE: 8.1 mCi Tc99m MAA IV 0.9 mCi Tc99m DTPA aerosol MEDICAL HISTORY : Hypertension. SURGICAL HISTORY : Colon resection. Tonsillectomy. Bilateral hip replacement. ENCOUNTER: Initial ACUITY: 1 day PAIN SCALE: 3/10 LOCATION: chest TECHNIQUE: Following five minutes of tidal breathing of DTPA aerosol, planar images of the lungs were performed in eight projections. The patient was then injected with MAA, and eight-view perfusion scan was perf ormed. FINDINGS: There is a fairly homogeneous pattern of aerosol delivery to the periphery of both lungs. Moderate c entral deposition radiopharmaceutical is present. No focal ventilatory defects are seen. The perfusion lung scan demonstrates a fairly homogenous pattern of uptake in both lungs. No large o r moderate segmental or subsegmental defects are seen. CONCLUSION: Low probability for pulmonary embolism. Maurice Marsh MD on August 29, 2017 at 18:21 Board Certified Radiologist. This report was verified electronically.
[2017-08-29] MEDS: SODIUM CHLOR 0.45% 1000 ML INJ 1,000 ML IV SCH ×2 (18:46→21:08)
[2017-08-29 18:47] VITALS: BP 165/86; PULSE 90; O2SAT 97
--- NOTE | 2017-08-29 19:11 | HHI.HP ---
HPI Service [facility] Primary Care Physician Unknown Admission Diagnosis Acute renal failure, a flutter with RVR Diagnoses: Travel History International Travel<30 Days: No Contact w/Intl Traveler <30 Da: No Traveled to Known Affected Are: No History of Present Illness History from patient, at the bedside, ER physician, and review of medical records. Patient reported that for the past 5 days or so, every time he checks on the monitor, his heart rate has been high. It has been in the 110s-130s. He however denies any feelings of palpitations, chest pains, shortness of breath. stated that this is happened to check it at home. On a random check. They then called their PCP today who told him to come to emergency room. states she even stopped taking gabapentin and gas aches for him because she thought that these medications were causing this high heart rate. In the emergency room, patient's heart rate was between 110-130 and he was in A. fib. She was given Cardizem 60 mg p.o. in ER after which the heart rate came down initially. At the time of my exam, patient's heart rate was around 100-120s. He remains to be asymptomatic. Patient denies any cough. Patient denies any fever. Denies any nausea/vomiting/diarrhea. Denies any blood in his stools or his urine. Also stated that he did have some cough occasionally in the past few days and had some cold-like symptoms. But did not require any medications. Patient himself reports of frequent urination. But no burning or pain on urination. Patient had a fall on June 23, 2017 and fractured his left leg. He was managed nonsurgically and was receiving physical therapy at home. He states that he is able to transfer from bed to wheelchair and does exercises on the bed. But not ambulating. Also reports of swelling in his left lower extremity because of this. Patient does have history of hypothyroidism for which he was taking thyroid medications. The states that the dose remains to be the same. He denies any other new medications. He was admitted to a rehab facility from June 27, 2017 to August 11, 2017. No New meds. Review of Systems Except as stated in HPI: all other systems reviewed are Neg Past Family Social History Past Medical History htn no prior hx of cad/chf/afib prior caesar secondary to nsaid in 2014 hypothyroidism colon cancer- diagnosed 1983- s/p resection, no chemo or radiation MUGUS- about 5 yrs ago chronic anemia Past Surgical History colon cancer resection laminectomy 3 hip sx 2 knee sx Allergies: Coded Allergies: No Known Allergies (Verified Allergy, Unknown, 06/24/17) Family History sister- colon cancer Social History smokes pipes - quit no etoh abuse or drug abuse Physical Exam Vital Signs Vital Signs Date Time Temp Pulse Resp B/P (MAP) Pulse Ox O2 Delivery O2 Flow Rate FiO2 08/29/17 18:47 90 165/86 (112) 97 08/29/17 16:14 97 16 138/75 (96) 96 Room Air 08/29/17 14:25 132 21 160/71 (100) 99 Room Air 08/29/17 13:28 134 08/29/17 13:19 97.7 133 22 147/82 (103) 98 Physical Exam GENERAL: This is a well-nourished, well-developed patient, in no apparent distress. SKIN: No rashes, ecchymoses or lesions. Cool and dry. HEAD: Atraumatic. Normocephalic. No temporal or scalp tenderness. EYES: No scleral icterus. No injection or drainage. ENT: Nose without bleeding, purulent drainage or septal hematoma.Airway patent. NECK: Trachea midline. No JVDno meningeal signs. CARDIOVASCULAR: Regular rate and rhythm without murmurs, gallops, or rubs. RESPIRATORY: Clear to auscultation. Breath sounds equal bilaterally. No wheezes , rales, or rhonchi. GASTROINTESTINAL: Abdomen soft, non-tender, nondistended. No guarding. MUSCULOSKELETAL: Extremities without clubbing, cyanosis, No calf tenderness. Left lower extremity bigger than the right. With 3+ pitting edema. NEUROLOGICAL: Awake and alert. Motor and sensory grossly within normal limits. Normal speech. Laboratory Laboratory Tests Test 08/29/17 13:38 White Blood Count 7.7 Red Blood Count 3.04 Hemoglobin 8.2 Hematocrit 25.9 Mean Corpuscular Volume 85.3 Mean Corpuscular Hemoglobin 27.1 Mean Corpuscular Hemoglobin Concent 31.7 Red Cell Distribution Width 22.7 Platelet Count 344 Mean Platelet Volume 7.8 Neutrophils (%) (Auto) 65.4 Lymphocytes (%) (Auto) 20.1 Monocytes (%) (Auto) 7.1 Eosinophils (%) (Auto) 7.1 Basophils (%) (Auto) 0.3 Neutrophils # (Auto) 5.0 Lymphocytes # (Auto) 1.6 Monocytes # (Auto) 0.5 Eosinophils # (Auto) 0.5 Basophils # (Auto) 0.0 CBC Comment AUTO DIFF Differential Comment AUTO DIFF CONFIRMED Ovalocytes 1+ Prothrombin Time 10.5 Prothromb Time International Ratio 1.0 Activated Partial Thromboplast Time 20.2 D-Dimer Quantitative (PE/DVT) 2.35 Blood Urea Nitrogen 31 Creatinine 2.40 Random Glucose 94 Total Protein 8.4 Albumin 3.8 Calcium Level 10.8 Magnesium Level 2.2 Alkaline Phosphatase 86 Aspartate Amino Transf (AST/SGOT) 13 Alanine Aminotransferase (ALT/SGPT) 18 Total Bilirubin 0.3 Sodium Level 144 Potassium Level 3.8 Chloride Level 107 Carbon Dioxide Level 27.6 Anion Gap 9 Estimat Glomerular Filtration Rate 26 Total Creatine Kinase 23 Troponin I LESS THAN 0.02 B-Type Natriuretic Peptide 149 Result Diagram: 08/29/17 1338 08/29/17 1338 Imaging Last 48 hours Impressions Chest X-Ray 08/29/17 1325 Signed Impressions: Service Date/Time: August 13:56 - CONCLUSION: Linear opacity at the left lung base representing either subsegmental atelectasis or scar. Otherwise, no acute finding is identified. Armando Barbosa MD Lung Scan-V Nuclear Medicine 08/29/17 0000 Signed Impressions: Service Date/Time: August 17:41 - CONCLUSION: Low probability for pulmonary embolism. Maurice Marsh MD Femur X-Ray 08/29/17 0000 Signed Impressions: Service Date/Time: August 13:51 - CONCLUSION: No acute fracture or dislocation. MD Jailene Mooni VTE Risk Assessment Caprini VTE Risk Assessment: Mod/High Risk (score >= 2) Caprini Risk Assessment Model Point Value = 1 Point Value = 2 Point Value = 3 Point Value = 5 Age 41-60 Minor surgery BMI > 25 kg/m2 Swollen legs Varicose veins or History of unexplained or recurrent spontaneous Oral contraceptives or hormone replacement Sepsis (< 1 month) Serious lung disease, including pneumonia (< 1 month) Abnormal pulmonary function Acute myocardial infarction Congestive heart failure (< 1 month) History of inflammatory bowel disease Medical patient at bed rest Age 61-74 Arthroscopic surgery Major open surgery (> 45 min) Laparoscopic surgery (> 45 min) Malignancy Confined to bed (> 72 hours) Immobilizing plaster cast Central venous access Age >= 75 History of VTE Family history of VTE Factor V Leiden Prothrombin [id number] Lupus anticoagulant Anticardiolipin antibodies Elevated serum homocysteine Heparin-induced thrombocytopenia Other congenital or acquired thrombophilia Stroke (< 1 month) Elective arthroplasty Hip, pelvis, or leg fracture Acute spinal cord injury (< 1 month) Prophylaxis Regimen Total Risk Factor Score Risk Level Prophylaxis Regimen 0-1 Low Early ambulation 2 Moderate Order ONE of the following: *Sequential Compression Device (SCD) *Heparin 5000 units SQ BID 3-4 Higher Order ONE of the following medications: *Heparin 5000 units SQ TID *Enoxaparin/Lovenox 40 mg SQ daily (WT < 150 kg, CrCl > 30 mL/min) *Enoxaparin/Lovenox 30 mg SQ daily (WT < 150 kg, CrCl > 10-29 mL/min) *Enoxaparin/Lovenox 30 mg SQ BID (WT < 150 kg, CrCl > 30 mL/min) AND/OR *Sequential Compression Device (SCD) 5 or more Highest Order ONE of the following medications: *Heparin 5000 units SQ TID (Preferred with Epidurals) *Enoxaparin/Lovenox 40 mg SQ daily (WT < 150 kg, CrCl > 30 mL/min) *Enoxaparin/Lovenox 30 mg SQ daily (WT < 150 kg, CrCl > 10-29 mL/min) *Enoxaparin/Lovenox 30 mg SQ BID (WT < 150 kg, CrCl > 30 mL/min) AND *Sequential Compression Device (SCD) Assessment and Plan Assessment and Plan Impression: Acute renal failure dehydration new onset affib likely from dehydration r/o pe r/o dvt htn no prior hx of cad/chf/afib prior caesar secondary to nsaid in 2014 hypothyroidism colon cancer- diagnosed 1983- s/p resection, no chemo or radiation MUGUS- about 5 yrs ago chronic anemia Plan: iv hydration at 75cc/hr will follow renal function post hydration echo in am cardizem 60mg po q6hr one now no cardizem iv drip available in hospital start heparin drip for anticoagulation vq scan reviewed - no pe obtain US of bilateral LE for dvt studies cardiology consult pt consult dvt prophylaxis on heparin Discussed Condition With patient, , er md, nursing staff Physician Certification 2 Midnight Certification Type: Admission for Inpatient Services Order for Inpatient Services The services are ordered in accordance with Medicare regulations or non- Medicare payer requirements, as applicable. In the case of services not specified as inpatient-only, they are appropriately provided as inpatient services in accordance with the 2-midnight benchmark. Estimated LOS (days): 2 days is the estimated time the patient will need to remain in the hospital, assuming treatment plan goals are met and no additional complications. Post-Hospital Plan: Home Abdiel Davies MD Aug 29, 2017 19:11
[2017-08-29] MEDS ORDERED: HEPARIN-D5W 25,000 U/250 ML 250 ML IV PRN (19:30)
[2017-08-29 20:00] VITALS: BP 151/78; PULSE 100; RESP 19; TEMP 98.2; O2SAT 92
[2017-08-29] MEDS ORDERED: HEPARIN SODIUM - IV 10,000 UNITS/10 ML VIAL IV PUSH ONE (20:00)
[2017-08-29] MEDS: DILTIAZEM HCL 60 MG TAB PO SCH (21:07)
[2017-08-29] MEDS: CALCIUM/VITAMIN D 250 MG/125 U TAB PO SCH (21:08)
[2017-08-29] MEDS: SODIUM CHLORIDE 0.9% FLUSH 10 ML FLUSH IV FLUSH SCH (21:08)
[2017-08-29 23:45] VITALS: PULSE 121
[2017-08-30] VITALS (12 sets, daily range): BP systolic 117–162; BP diastolic 58–86; PULSE 70–136; RESP 18–21; TEMP 97.3–99; O2SAT 92–99
[2017-08-30] MEDS: DILTIAZEM HCL 60 MG TAB PO SCH ×4 (01:54→21:11)
[2017-08-30 05:27] LABS: AUTOMATED NEUTROPHIL # 3.5 TH/MM3 (1.8-7.7); BASOPHIL # 0.1 TH/MM3 (0-0.2); BASOPHIL % 0.8 % (0.0-2.0); EOSINOPHIL # 0.5 TH/MM3 (0-0.4); EOSINOPHIL % 7.2 % (0.0-4.0); LYMPH % 30.2 % (9.0-44.0); LYMPHOCYTE # 1.9 TH/MM3 (1.0-4.8); MEAN CELL VOLUME 84.9 FL (80.0-100.0); MEAN CORPUSCULAR HEMOGLOBIN 27.4 PG (27.0-34.0); MEAN CORPUSCULAR HGB CONC 32.2 % (32.0-36.0); MEAN PLATELET VOLUME 8.1 FL (7.0-11.0); MONO % 6.8 % (0.0-8.0); MONOCYTE # 0.4 TH/MM3 (0-0.9); PLATELET COUNT 266 TH/MM3 (150-450); RED CELL DISTRIBUTION WIDTH 22.7 % (11.6-17.2); WHITE BLOOD COUNT 6.4 TH/MM3 (4.0-11.0)
[2017-08-30 05:32] LABS: HEMATOCRIT 19.5 % (39.0-51.0); HEMOGLOBIN 6.3 GM/DL (13.0-17.0)
[2017-08-30] MEDS: LEVOTHYROXINE SODIUM 75 MCG TAB PO SCH (05:33)
[2017-08-30] MEDS ORDERED: SODIUM CHLOR 0.9% 250 ML INJ 250 ML IV ONE (05:45)
[2017-08-30 05:55] LABS: BICARBONATE 27.8 MEQ/L (21.0-32.0); CALCIUM 10.2 MG/DL (8.5-10.1); CREATININE 2.2 MG/DL (0.60-1.30)
[2017-08-30 07:47] LABS: OVALOCYTES 1+ (NORMAL)
[2017-08-30] MEDS: SODIUM CHLORIDE 0.9% FLUSH 10 ML FLUSH IV FLUSH SCH ×2 (08:34→21:00)
[2017-08-30] MEDS: MULTIVITAMIN TAB PO SCH (08:35)
[2017-08-30] MEDS: CALCIUM/VITAMIN D 250 MG/125 U TAB PO SCH ×2 (08:35→21:11)
[2017-08-30] MEDS: CHOLECALCIFEROL (VIT D3) 1000 UNIT TAB PO SCH (08:35)
--- NOTE | 2017-08-30 08:55 | PD.CONS ---
HPI Service cardiology Consult Requested By Reason for Consult new onset afib RVR Primary Care Physician Unknown History of Present Illness 82 yo WM with no prior cardiac history with HTN, hypothyroidism, remote history of colon cancer and recent L femur fracture who presented to the ED after recording consistently elevated heart rates on home monitor. Upon evaluation he is found to have acute renal failure, anemia and new onset afib RVR with HR ~ 130 bpm. He feels well and denies chest pain, sob or palpitations. He has been non-weightbearing since L femur fracture last month. Cardizem po 60mg has been initiated with little improvement in rate (IV cardizem is unavailable). Review of labs shows hemoglobin decreased overnight to 6.3; orders have been placed for 2 units PRBC. He denies dark stools or abdominal pain. Creatinine improving after IV fluids. Echo ordered. (Ana Charlton) Review of Systems Consitutional: DENIES: Fatigue, Fever, Chills, Weight gain, Weight loss Respiratory: DENIES: Cough, Snoring, Shortness of breath, Wheezing, Sputum production Cardiovascular: DENIES: Chest pain, Palpitations, Syncope, Tachycardia Gastrointestinal: DENIES: Nausea, Vomiting, Change in bowel habits, Reflux, Bloody stools, Melena (Ana Charlton) Past Family Social History Allergies: Coded Allergies: No Known Allergies (Verified Allergy, Unknown, 06/24/17) Past Medical History htn no prior hx of cad/chf/afib prior caesar secondary to nsaid in 2014 hypothyroidism colon cancer- diagnosed 1983- s/p resection, no chemo or radiation MUGUS- about 5 yrs ago chronic anemia Past Surgical History colon cancer resection laminectomy 3 hip sx 2 knee sx Reported Medications Reported Meds & Active Scripts Active Calcium 600+D 200 (Calcium Carbonate-Vitamin D) 600-200 Mg-Unit Tab 1 Tab PO BID Vitamin D3 (Cholecalciferol) 2,000 Unit Cap 2,000 Units PO DAILY Hydrocodone-Acetaminophen 7.5 Mg-325 Mg Tab 1 Tab PO Q4H PRN Walker/Adult/Folding (Device) 1 Mis Mis Ea .XX DIRECTED Walker Front Wheel (Z.0.walkerfront) Device 1 Unit Cpm Machine (Z.0.cpm) Device 1 Unit Commode-3:1 (Z.0.commode-3:1) Device 1 Unit Reported Gabapentin 100 Mg Cap 100 Mg PO TID Multiple Vitamin 1 Tab 1 Tab PO DAILY Levothyroxine (Levothyroxine Sodium) 75 Mcg Tab 75 Mcg PO DAILY Amlodipine (Amlodipine Besylate) 2.5 Mg Tab 10 Mg PO DAILY Active Ordered Medications Current Medications Medications (Trade) Dose Ordered Sig/Reggie Route Start Time Stop Time Status Last Admin Sodium Chloride 1,000 ml @ 75 mls/hr [id number] IV 08/29/17 18:00 08/29/17 18:46 (NS Flush) 2 ml UNSCH PRN IV FLUSH 08/29/17 17:30 (NS Flush) 2 ml BID IV FLUSH 08/29/17 21:00 08/29/17 21:08 (Narcan Inj) 0.4 mg UNSCH PRN IV PUSH 08/29/17 17:30 (Vitamin D3) 2,000 units DAILY PO 08/30/17 09:00 (Synthroid) 75 mcg DAILY@0600 PO 08/30/17 06:00 08/30/17 05:33 (Oscal-D 250-125) 500 mg BID PO 08/29/17 21:00 08/29/17 21:08 (Theragran) 1 tab DAILY PO 08/30/17 09:00 (Cardizem) 60 mg Q6H PO 08/29/17 20:00 08/30/17 01:54 Sodium Chloride 250 ml @ 15 mls/hr ONCE ONCE IV 08/30/17 05:45 08/30/17 22:24 Family History sister- colon cancer Social History smokes pipes - quit no etoh abuse or drug abuse (Ana Charlton) Physical Exam Vital Signs Vital Signs Date Time Temp Pulse Resp B/P (MAP) Pulse Ox O2 Delivery O2 Flow Rate FiO2 08/30/17 07:37 Room Air 08/30/17 04:00 101 08/30/17 04:00 98.6 100 18 124/73 (90) 94 08/30/17 02:25 101 08/30/17 00:00 Room Air 08/30/17 00:00 97.5 136 18 117/70 (86) 92 08/29/17 23:45 121 08/29/17 21:00 Room Air 08/29/17 20:00 08/29/17 20:00 98.2 100 19 151/78 (102) 92 08/29/17 18:47 90 165/86 (112) 97 08/29/17 16:14 97 16 138/75 (96) 96 Room Air 08/29/17 14:25 132 21 160/71 (100) 99 Room Air 08/29/17 13:28 134 08/29/17 13:19 97.7 133 22 147/82 (103) 98 Physical Exam GENERAL: SKIN: Warm and dry. HEAD: Atraumatic. Normocephalic. EYES: Pupils equal and round. . ENT: No nasal bleeding or discharge. NECK: Trachea midline. No JVD. CARDIOVASCULAR: tachycardic, irregularly irregular, no murmurs RESPIRATORY: No accessory muscle use. Clear to auscultation. Breath sounds equal bilaterally. GASTROINTESTINAL: Abdomen soft, non-tender, nondistended. MUSCULOSKELETAL: Extremities without clubbing, cyanosis, or edema. No obvious deformities. NEUROLOGICAL: Awake and alert. No obvious cranial nerve deficits. Normal speech. PSYCHIATRIC: Appropriate mood and affect; insight and judgment normal. Laboratory Laboratory Tests Test 08/29/17 13:38 08/30/17 04:58 White Blood Count 7.7 6.4 Red Blood Count 3.04 2.30 Hemoglobin 8.2 6.3 Hematocrit 25.9 19.5 Mean Corpuscular Volume 85.3 84.9 Mean Corpuscular Hemoglobin 27.1 27.4 Mean Corpuscular Hemoglobin Concent 31.7 32.2 Red Cell Distribution Width 22.7 22.7 Platelet Count 344 266 Mean Platelet Volume 7.8 8.1 Neutrophils (%) (Auto) 65.4 55.0 Lymphocytes (%) (Auto) 20.1 30.2 Monocytes (%) (Auto) 7.1 6.8 Eosinophils (%) (Auto) 7.1 7.2 Basophils (%) (Auto) 0.3 0.8 Neutrophils # (Auto) 5.0 3.5 Lymphocytes # (Auto) 1.6 1.9 Monocytes # (Auto) 0.5 0.4 Eosinophils # (Auto) 0.5 0.5 Basophils # (Auto) 0.0 0.1 CBC Comment AUTO DIFF AUTO DIFF Differential Comment AUTO DIFF CONFIRMED AUTO DIFF CONFIRMED Ovalocytes 1+ 1+ Prothrombin Time 10.5 Prothromb Time International Ratio 1.0 Activated Partial Thromboplast Time 20.2 83.5 D-Dimer Quantitative (PE/DVT) 2.35 Blood Urea Nitrogen 31 29 Creatinine 2.40 2.20 Random Glucose 94 88 Total Protein 8.4 Albumin 3.8 Calcium Level 10.8 10.2 Magnesium Level 2.2 Alkaline Phosphatase 86 Aspartate Amino Transf (AST/SGOT) 13 Alanine Aminotransferase (ALT/SGPT) 18 Total Bilirubin 0.3 Sodium Level 144 143 Potassium Level 3.8 3.8 Chloride Level 107 108 Carbon Dioxide Level 27.6 27.8 Anion Gap 9 7 Estimat Glomerular Filtration Rate 26 29 Total Creatine Kinase 23 Troponin I LESS THAN 0.02 B-Type Natriuretic Peptide 149 Thyroid Stimulating Hormone 3rd Gen 3.820 Platelet Estimate NORMAL Platelet Morphology Comment NORMAL (Ana Charlton) Result Diagram: 08/30/17 0458 08/30/17 0458 Imaging Last 48 hours Impressions Chest X-Ray 08/29/17 1325 Signed Impressions: Service Date/Time: August 13:56 - CONCLUSION: Linear opacity at the left lung base representing either subsegmental atelectasis or scar. Otherwise, no acute finding is identified. Armando Barbosa MD Lung Scan-V Nuclear Medicine 08/29/17 0000 Signed Impressions: Service Date/Time: August 17:41 - CONCLUSION: Low probability for pulmonary embolism. Maurice Marsh MD Femur X-Ray 08/29/17 0000 Signed Impressions: Service Date/Time: August 13:51 - CONCLUSION: No acute fracture or dislocation. Bayron Boston MD (Ana Charlton) Assessment and Plan Problem List: (1) Atrial flutter with rapid ventricular response ICD Codes: I48.92 - Unspecified atrial flutter Status: Acute (2) HTN (hypertension) ICD Codes: I10 - Essential (primary) hypertension Assessment and Plan 82 yo WM with no prior cardiac history with HTN, hypothyroidism, remote history of colon cancer and recent L femur fracture who presented to the ED after recording consistently elevated heart rates on home monitor. Upon evaluation he is found to have acute renal failure, anemia and new onset afib RVR with HR ~ 130 bpm. He feels well and denies chest pain, sob or palpitations. He has been non-weightbearing since L femur fracture last month. Cardizem po 60mg has been initiated with little improvement in rate (IV cardizem is unavailable). Review of labs shows hemoglobin decreased overnight to 6.3; orders have been placed for 2 units PRBC. He denies dark stools or abdominal pain. Creatinine improving after IV fluids. VQ scan from 08/29 negative. afib RVR- needs improved rate control. Add IV digoxin 0.5, check digoxin level tomorrow am. TSH WNL CHADS-Vasc=3 due to have PRBC today, will watch and wait for now as anemia and ARF are treated. hold heparin (Ana Charlton) Assessment and Plan afib RVR is stress mediated correct anemia dig x 1. monitor level in setting of CKD PO cardizem as BP allows (Stevo Curry MD) Ana Charlton Aug 30, 2017 08:55 Stevo Curry MD Aug 30, 2017 12:51
[2017-08-30] MEDS ORDERED: DIGOXIN 0.5 MG/2 ML VIAL IV PUSH ONE (09:30)
--- NOTE | 2017-08-30 10:23 | RADRPT ---
EXAM DATE/TIME: 08/30/2017 08:41 [facility] COMPARISON: No previous studies available for comparison. INDICATIONS : Bilateral leg swelling. MEDICAL HISTORY : Hypertension. Carcinoma, colon. Thyroid disease. Arthritis. Blood transfusion. Macular degeneration. SURGICAL HISTORY : Tonsillectomy.Colon resection. Bilateral hip replacments. Lumbar surgery. Bilateral knee replacement. ENCOUNTER: Initial ACUITY: 1 day PAIN SCORE: 0/10 LOCATION: Bilateral legs. TECHNIQUE: Venous ultrasound of the left and right leg was performed from the inguinal ligament to the proximal calf. Real-time, color Doppler and spectral tracing, compression and augmentation techniques were us ed. FINDINGS: RIGHT LEG: There is normal compressibility of the deep venous system from the inguinal region to the proximal ca lf. No echogenic clot is seen in the lumen of the common femoral, femoral, popliteal, and posterior tibial veins. There is a normal response of the venous system to proximal and distal augmentation an d respiration. LEFT LEG: There is normal compressibility of the deep venous system from the inguinal region to the proximal ca lf. Occlusive thrombus is noted within the left peroneal vein. No echogenic clot is seen in the lume n of the common femoral, femoral, popliteal, and posterior tibial veins. There is a normal response of the venous system to proximal and distal augmentation and respiration. CONCLUSION: Occlusive thrombus below the left knee in the left peroneal vein. Bayron Boston MD on August 30, 2017 at 10:20 Board Certified Radiologist. This report was verified electronically.
--- NOTE | 2017-08-30 10:34 | PD.PN.STU ---
Subjective Remarks This is a 82 year old male with a hx of hypertension, hypothyroidism, and colon cancer (in ) presents with the complaint of "Fast heart rate". His is present and provides most of the information. She says that over the past week she randomly started taking his BP and HR at home and was getting normal BP's but HR's in the 130's with the highest being 141. He said he was having no symptoms at all with this. His doctor sent him to the ED where he was found to be in Atrial Flutter with a rapid ventricular response. He recently had a fracture of his femur and was in an [facility] and was just transitioned to home. He is unable to bear weight on his left leg because of this. He denies any chest pain, SOB, nausea, vomiting, diarrhea, dysuria, hematuria, melena, weight loss, bone pain, swelling, or abdominal pain. PMH- hypothyroidism, hypertension, hx of colon cancer (1982), hx of MCGUS (2012) Surgical hx: large colon resection, B/L knee and B/L hip replacements. Social: smoked 1 pipe of tobacco a day for 40 years and quit 10 years ago. Denies alcohol use. Objective Vitals Vital Signs Date Time Temp Pulse Resp B/P (MAP) Pulse Ox O2 Delivery O2 Flow Rate FiO2 08/30/17 07:37 Room Air 08/30/17 04:00 101 08/30/17 04:00 98.6 100 18 124/73 (90) 94 08/30/17 02:25 101 08/30/17 00:00 Room Air 08/30/17 00:00 97.5 136 18 117/70 (86) 92 08/29/17 23:45 121 08/29/17 21:00 Room Air 08/29/17 20:00 08/29/17 20:00 98.2 100 19 151/78 (102) 92 08/29/17 18:47 90 165/86 (112) 97 08/29/17 16:14 97 16 138/75 (96) 96 Room Air 08/29/17 14:25 132 21 160/71 (100) 99 Room Air 08/29/17 13:28 134 08/29/17 13:19 97.7 133 22 147/82 (103) 98 I/O 4/12/18 08/29/17 08/29/17 08/30/17 08/30/17 08/30/17 07:00 15:00 23:00 07:00 15:00 23:00 Intake Total 1000 ml 1240 ml Output Total 750 ml 400 ml Balance 250 ml 840 ml Intake Oral 240 ml IV Total 1000 ml 1000 ml Output Urine Total 750 ml 400 ml # Voids 1 Result Diagram: 08/30/17 0458 08/30/17 0458 Other Results Laboratory Tests Test 08/29/17 13:38 08/30/17 04:58 White Blood Count 7.7 TH/MM3 6.4 TH/MM3 Red Blood Count 3.04 MIL/MM3 2.30 MIL/MM3 Hemoglobin 8.2 GM/DL 6.3 GM/DL Hematocrit 25.9 % 19.5 % Mean Corpuscular Volume 85.3 FL 84.9 FL Mean Corpuscular Hemoglobin 27.1 PG 27.4 PG Mean Corpuscular Hemoglobin Concent 31.7 % 32.2 % Red Cell Distribution Width 22.7 % 22.7 % Platelet Count 344 TH/MM3 266 TH/MM3 Mean Platelet Volume 7.8 FL 8.1 FL Neutrophils (%) (Auto) 65.4 % 55.0 % Lymphocytes (%) (Auto) 20.1 % 30.2 % Monocytes (%) (Auto) 7.1 % 6.8 % Eosinophils (%) (Auto) 7.1 % 7.2 % Basophils (%) (Auto) 0.3 % 0.8 % Neutrophils # (Auto) 5.0 TH/MM3 3.5 TH/MM3 Lymphocytes # (Auto) 1.6 TH/MM3 1.9 TH/MM3 Monocytes # (Auto) 0.5 TH/MM3 0.4 TH/MM3 Eosinophils # (Auto) 0.5 TH/MM3 0.5 TH/MM3 Basophils # (Auto) 0.0 TH/MM3 0.1 TH/MM3 CBC Comment AUTO DIFF AUTO DIFF Differential Comment AUTO DIFF CONFIRMED AUTO DIFF CONFIRMED Ovalocytes 1+ 1+ Prothrombin Time 10.5 SEC Prothromb Time International Ratio 1.0 RATIO Activated Partial Thromboplast Time 20.2 SEC 83.5 SEC D-Dimer Quantitative (PE/DVT) 2.35 MG/L FEU Blood Urea Nitrogen 31 MG/DL 29 MG/DL Creatinine 2.40 MG/DL 2.20 MG/DL Random Glucose 94 MG/DL 88 MG/DL Total Protein 8.4 GM/DL Albumin 3.8 GM/DL Calcium Level 10.8 MG/DL 10.2 MG/DL Magnesium Level 2.2 MG/DL Alkaline Phosphatase 86 U/L Aspartate Amino Transf (AST/SGOT) 13 U/L Alanine Aminotransferase (ALT/SGPT) 18 U/L Total Bilirubin 0.3 MG/DL Sodium Level 144 MEQ/L 143 MEQ/L Potassium Level 3.8 MEQ/L 3.8 MEQ/L Chloride Level 107 MEQ/L 108 MEQ/L Carbon Dioxide Level 27.6 MEQ/L 27.8 MEQ/L Anion Gap 9 MEQ/L 7 MEQ/L Estimat Glomerular Filtration Rate 26 ML/MIN 29 ML/MIN Total Creatine Kinase 23 U/L Troponin I LESS THAN 0.02 NG/ML B-Type Natriuretic Peptide 149 PG/ML Thyroid Stimulating Hormone 3rd Gen 3.820 uIU/ML Platelet Estimate NORMAL Platelet Morphology Comment NORMAL Imaging Last Impressions Lower Extremity Ultrasound 08/30/17 0000 Signed Impressions: Service Date/Time: Wednesday, August 30, 2017 08:41 - CONCLUSION: Occlusive thrombus below the left knee in the left peroneal vein. Bayron Boston MD Chest X-Ray 08/29/17 1325 Signed Impressions: Service Date/Time: August 13:56 - CONCLUSION: Linear opacity at the left lung base representing either subsegmental atelectasis or scar. Otherwise, no acute finding is identified. Armando Barbosa MD Lung Scan- Nuclear Medicine 08/29/17 0000 Signed Impressions: Service Date/Time: August 17:41 - CONCLUSION: Low probability for pulmonary embolism. Maurice Marsh MD Femur X-Ray 08/29/17 0000 Signed Impressions: Service Date/Time: August 13:51 - CONCLUSION: No acute fracture or dislocation. Bayron Boston MD Objective Remarks GENERAL: A well developed and well nourished male in no acute distress SKIN: Warm and dry. Conjunctiva are pale. CARDIOVASCULAR: Irregular rate and rhythm with no murmurs. HR in the 130's at bedside. RESPIRATORY: Breath sounds equal bilaterally. No accessory muscle use. No crackles, wheezes, or rhonchi. GASTROINTESTINAL: Abdomen soft, non-tender, nondistended. Bowel sounds present. MUSCULOSKELETAL: No cyanosis, Left calf is larger than the right calf and mildly tender with no erythema, +2 pitting edema of left leg from the ankle to the knee, no edema of right leg Medications and IVs Current Medications Medications (Trade) Dose Ordered Sig/Reggie Route PRN Reason Start Time Stop Time Status Last Admin Dose Admin Sodium Chloride 1,000 ml @ 75 mls/hr [id number] IV 08/29/17 18:00 08/29/17 18:46 Sodium Chloride (NS Flush) 2 ml UNSCH PRN IV FLUSH FLUSH AFTER USING IV ACCESS 08/29/17 17:30 Sodium Chloride (NS Flush) 2 ml BID IV FLUSH 08/29/17 21:00 08/30/17 08:34 Naloxone HCl (Narcan Inj) 0.4 mg UNSCH PRN IV PUSH SEE LABEL COMMENTS 08/29/17 17:30 Cholecalciferol (Vitamin D3) 2,000 units DAILY PO 08/30/17 09:00 08/30/17 08:35 Levothyroxine Sodium (Synthroid) 75 mcg DAILY@0600 PO 08/30/17 06:00 08/30/17 05:33 Calcium/Vitamin D (Oscal-D 250-125) 500 mg BID PO 08/29/17 21:00 08/30/17 08:35 Multivitamins (Theragran) 1 tab DAILY PO 08/30/17 09:00 08/30/17 08:35 Diltiazem HCl (Cardizem) 60 mg Q6H PO 08/29/17 20:00 08/30/17 08:34 Sodium Chloride 250 ml @ 15 mls/hr ONCE ONCE IV 08/30/17 05:45 08/30/17 22:24 A/P Assessment and Plan 82-year-old male with: Atrial Flutter with RVR -Appreciate cardiology following. Patient has been given digoxin. Continue Cardizem. -Anticoagulate with heparin drip. Discussed anticoagulation option with the patient and his at bedside. They are leaning more towards NOAC. Eliquis would be an option -Echo to rule out valvular disease. Acute Kidney Injury: Likely secondary to prerenal azotemia from dehydration and anemia. -hydrate with IV fluids -should improve with RBC infusion Anemia -Hemoccult ordered. -Follow CBC -2 Units of packed RBCs. Check B12, folate, iron panel. He does have a remote history of prior colon cancer. Left leg DVT: -Provoked DVT secondary to recent femur fracture. Nonoperative, has been immobile. - Currently on heparin drip. Patient will need to be anticoagulated for this. He also has A. fib. Hypercalcemia -Mild, follow up labs. Attending Note The exam, history, and the medical decision-making described in the above note were completed with the assistance of the medical student. I reviewed, edited and verified the findings documented above. I attest that I had a [id number] encounter with the patient on the same day, and personally performed and documented my assessment and findings in the medical record. Candelario Sprague Aug 30, 2017 10:34 Malina Malagon MD Aug 30, 2017 15:19
--- NOTE | 2017-08-30 15:49 | ECHRPT ---
Indication: A FIB FLUTTER CONCLUSIONS Technically very difficult study making assessment of left ventricular function suboptimal. Grossly , left ventricular size and function appear normal. Ejection fraction is roughly estimated at 60%. Region al wall motion abnormalities cannot be excluded. Trace tricuspid regurgitation. BP: / HR: Rhythm: MEASUREMENTS (Male / Female) Normal Values Technical Quality: 2D ECHO LV Diastolic Diameter PLAX 4.5 cm 4.2 - 5.9 / 3.9 - 5.3 cm IVS Diastolic Thickness 1.4 cm 0.6 - 1.0 / 0.6 - 0.9 cm LVPW Diastolic Thickness 1.0 cm 0.6 - 1.0 / 0.6 - 0.9 cm LV Relative Wall Thickness 0.5 RV Internal Dim ED PLAX 2.0 cm LA Systolic Diameter LX 3.3 cm 3.0 - 4.0 / 2.7 - 3.8 cm M-MODE Aortic Root Diameter MM 3.5 cm AV Cusp Separation MM 2.2 cm DOPPLER Mitral E Point Velocity 132.0 cm/s TR Peak Velocity 270.0 cm/s TR Peak Gradient 29.2 mmHg FINDINGS LEFT VENTRICLE Technically very difficult study making assessment of left ventricular function suboptimal. Grossly , left ventricular size and function appear normal. Ejection fraction is roughly estimated at 60%. Region al wall motion abnormalities cannot be excluded. RIGHT VENTRICLE Normal right ventricular size and systolic function. LEFT ATRIUM The left atrial size is normal. RIGHT ATRIUM The right atrial size is normal. ATRIAL SEPTUM Normal atrial septal thickness without atrial level shunting by limited color doppler interrogation. AORTA The aortic root and proximal ascending aorta are normal in size on limited imaging. MITRAL VALVE Mild mitral valve regurgitation. AORTIC VALVE Trileaflet aortic valve. No aortic valve stenosis or regurgitation. TRICUSPID VALVE Structurally normal tricuspid valve. Trace tricuspid regurgitation. PULMONARY VALVE Trivial pulmonary valve regurgitation. VESSELS The inferior vena cava is normal in size. PERICARDIUM No pericardial effusion. Taj Grant MD (Electronically Signed) Final Date:30 August 2017 15:48
[2017-08-30 16:28] LABS: IRON (FE) 52 MCG/DL (65-175)
[2017-08-30 16:54] LABS: % SATURATION IRON PROFILE 18.9 % (20-50); FERRITIN 404 NG/ML (26-388); TOTAL IRON BINDING CAPACITY 276 MCG/DL (250-450)
[2017-08-30 16:58] LABS: FOLATE GREATER THAN 20.0 NG/ML (3.1-17.5)
[2017-08-30] MEDS: APIXABAN 2.5 MG TABLET PO SCH (18:39)
[2017-08-30] MEDS: SODIUM CHLOR 0.45% 1000 ML INJ 1,000 ML IV SCH (21:11)
[2017-08-31] VITALS: BP 139/76; PULSE 68; PULSE 72; RESP 20; TEMP 97.8; O2SAT 95
[2017-08-31] MEDS: DILTIAZEM HCL 60 MG TAB PO SCH ×4 (02:20→21:35)
[2017-08-31 04:00] VITALS: BP 154/72; PULSE 87; PULSE 88; RESP 20; TEMP 98; O2SAT 95
[2017-08-31] MEDS: LEVOTHYROXINE SODIUM 75 MCG TAB PO SCH (05:54)
[2017-08-31 07:58] VITALS: PULSE 97
[2017-08-31 09:39] LABS: BASOPHIL % 0.6 % (0.0-2.0); EOSINOPHIL # 0.4 TH/MM3 (0-0.4); EOSINOPHIL % 5.5 % (0.0-4.0); HEMATOCRIT 30.9 % (39.0-51.0); HEMOGLOBIN 10.3 GM/DL (13.0-17.0); LYMPH % 15.9 % (9.0-44.0); LYMPHOCYTE # 1.1 TH/MM3 (1.0-4.8); MEAN CORPUSCULAR HEMOGLOBIN 28.4 PG (27.0-34.0); MEAN CORPUSCULAR HGB CONC 33.4 % (32.0-36.0); MONO % 8.8 % (0.0-8.0); MONOCYTE # 0.6 TH/MM3 (0-0.9); NEUT % 69.2 % (16.0-70.0); PLATELET COUNT 287 TH/MM3 (150-450); RED BLOOD COUNT 3.63 MIL/MM3 (4.50-5.90); RED CELL DISTRIBUTION WIDTH 19.7 % (11.6-17.2); WHITE BLOOD COUNT 7.2 TH/MM3 (4.0-11.0)
[2017-08-31 09:54] LABS: BICARBONATE 27.3 MEQ/L (21.0-32.0); CALCIUM 10.7 MG/DL (8.5-10.1); CREATININE 1.93 MG/DL (0.60-1.30)
[2017-08-31 10:20] LABS: OVALOCYTES 1+ (NORMAL)
[2017-08-31] MEDS: CHOLECALCIFEROL (VIT D3) 1000 UNIT TAB PO SCH (10:21)
[2017-08-31] MEDS: SODIUM CHLOR 0.45% 1000 ML INJ 1,000 ML IV SCH ×2 (10:22→23:38)
[2017-08-31] MEDS: MULTIVITAMIN TAB PO SCH (10:22)
[2017-08-31] MEDS: APIXABAN 2.5 MG TABLET PO SCH ×2 (10:22→21:35)
[2017-08-31] MEDS: CALCIUM/VITAMIN D 250 MG/125 U TAB PO SCH ×2 (10:22→21:35)
--- NOTE | 2017-08-31 11:16 | EKG ---
Date Performed: 08/29/2017 Time Performed: 13:28:49 PTAGE: 82 years EKG: ATRIAL FLUTTER WITH 2 TO 1 CONDUCTION OLD INFERIOR MYOCARDIAL INFARCTION Compared to previo us tracing, atrial flutter has replaced Sinus rhythm . ABNORMAL ECG PREVIOUS TRACING : 06/23/2017 19.38 DOCTOR: Evelio Gr Interpretating Date/Time 08/31/2017 11:15:39
[2017-08-31 12:00] VITALS: BP 163/77; PULSE 110; PULSE 87; RESP 20; TEMP 98.1; O2SAT 96
[2017-08-31] MEDS: SODIUM CHLORIDE 0.9% FLUSH 10 ML FLUSH IV FLUSH SCH ×2 (14:22→21:00)
--- NOTE | 2017-08-31 15:41 | HHI.PR ---
Subjective Remarks Patient reports he is feeling better. No evidence of bleeding. Objective Vitals Vital Signs Date Time Temp Pulse Resp B/P (MAP) Pulse Ox O2 Delivery O2 Flow Rate FiO2 08/31/17 12:00 98.1 87 20 163/77 (105) 96 08/31/17 04:07 Room Air 08/31/17 04:00 88 08/31/17 04:00 98.0 87 20 154/72 (99) 95 08/31/17 00:00 Room Air 08/31/17 00:00 68 08/31/17 00:00 97.8 72 20 139/76 (97) 95 08/30/17 20:32 99.0 88 18 150/67 96 08/30/17 20:00 98.1 88 21 153/67 (95) 96 08/30/17 20:00 Room Air 08/30/17 20:00 84 08/30/17 17:54 99.0 88 18 162/74 94 08/30/17 17:35 97.9 80 18 146/58 94 08/30/17 16:00 97.9 80 18 146/68 (94) 94 08/30/17 16:00 70 I/O 08/30/17 08/30/17 08/30/17 08/31/17 08/31/17 08/31/17 07:00 15:00 23:00 07:00 15:00 23:00 Intake Total 1240 ml 10 ml 1420 ml 1336 ml Output Total 400 ml 750 ml 1200 ml Balance 840 ml 10 ml 670 ml 136 ml Intake Oral 240 ml 600 ml 680 ml IV Total 1000 ml 656 ml Packed Cells 800 ml Blood Product IV Normal Saline Flush 10 ml 20 ml Output Urine Total 400 ml 750 ml 1200 ml # Voids 1 3 # Bowel Movements 1 Result Diagram: 08/31/17 0909 08/31/17 09 Objective Remarks GENERAL: Obese male, in no apparent distress. CARDIOVASCULAR: Normal rate and regular rhythm without murmurs, gallops, or rubs. RESPIRATORY: Good respiratory efforts. Breath sounds equal and clear to auscultation bilaterally. GASTROINTESTINAL: Abdomen soft, non-tender, non-distended. Normal active bowel sounds MUSCULOSKELETAL: Left leg with 2+ edema. Limited left leg motion due to pain. NEURO: Alert & Oriented x4 to person, place, time, situation. Moves all ext x4. Generalized weakness. PSYCH: Appropriate mood and affect. A/P Assessment and Plan 82-year-old male with: Atrial Flutter with RVR -Appreciate cardiology following. Status post digoxin. Rate controlled. Continue Cardizem. - Discussed anticoagulation option with the patient and his at bedside at length. They opted for Eliquis. Risk and benefits discussed. -Echo was a difficult study but grossly unremarkable. Acute Kidney Injury: Likely secondary to prerenal azotemia from dehydration and anemia. -Improving, continue to hydrate with IV fluids Anemia -Hemoccult negative. Probably mix of iron deficiency anemia and chronic disease. -Outpatient follow-up with hematology Left leg DVT: -Provoked DVT secondary to recent femur fracture. Nonoperative, has been immobile. -Status post heparin drip. Currently on Eliquis Hypercalcemia -Mild, follow up labs. Discharge Planning Continue current treatment. Follow-up renal functions in a.m. Possible discharge home with home health and PT tomorrow. Malina Malagon MD Aug 31, 2017 15:41
[2017-08-31 16:00] VITALS: BP 146/68; PULSE 84; PULSE 93; RESP 20; TEMP 97.4; O2SAT 95
[2017-08-31 20:00] VITALS: BP 155/71; PULSE 58; PULSE 77; RESP 18; TEMP 98.1; O2SAT 95
--- NOTE | 2017-08-31 21:18 | PD.CARD.PN ---
Subjective Subjective Remarks Watching TV, at bedside. Tele showed aflutter. Objective Medications Current Medications Medications (Trade) Dose Ordered Sig/Reggie Route Start Time Stop Time Status Last Admin Sodium Chloride 1,000 ml @ 75 mls/hr [id number] IV 08/29/17 18:00 08/31/17 10:22 (NS Flush) 2 ml UNSCH PRN IV FLUSH 08/29/17 17:30 (NS Flush) 2 ml BID IV FLUSH 08/29/17 21:00 08/31/17 14:22 (Narcan Inj) 0.4 mg UNSCH PRN IV PUSH 08/29/17 17:30 (Vitamin D3) 2,000 units DAILY PO 08/30/17 09:00 08/31/17 10:21 (Synthroid) 75 mcg DAILY@0600 PO 08/30/17 06:00 08/31/17 05:54 (Oscal-D 250-125) 500 mg BID PO 08/29/17 21:00 08/31/17 10:22 (Theragran) 1 tab DAILY PO 08/30/17 09:00 08/31/17 10:22 (Cardizem) 60 mg Q6H PO 08/29/17 20:00 08/31/17 14:22 (Eliquis) 2.5 mg BID PO 08/30/17 18:31 08/31/17 10:22 (Norvasc) 10 mg DAILY PO 08/31/17 14:44 08/31/17 18:59 Vital Signs / I&O Vital Signs Date Time Temp Pulse Resp B/P (MAP) Pulse Ox O2 Delivery O2 Flow Rate FiO2 08/31/17 16:00 Room Air 08/31/17 16:00 97.4 84 20 146/68 (94) 95 08/31/17 16:00 93 08/31/17 12:00 Room Air 08/31/17 12:00 110 08/31/17 12:00 98.1 87 20 163/77 (105) 96 08/31/17 08:00 Room Air 08/31/17 07:58 97 08/31/17 04:07 Room Air 08/31/17 04:00 88 08/31/17 04:00 98.0 87 20 154/72 (99) 95 08/31/17 00:00 Room Air 08/31/17 00:00 68 08/31/17 00:00 97.8 72 20 139/76 (97) 95 I/O 08/30/17 08/30/17 08/30/17 08/31/17 08/31/17 08/31/17 07:00 15:00 23:00 07:00 15:00 23:00 Intake Total 1240 ml 10 ml 1420 ml 1336 ml 480 ml Output Total 400 ml 750 ml 1200 ml Balance 840 ml 10 ml 670 ml 136 ml 480 ml Intake Oral 240 ml 600 ml 680 ml 480 ml IV Total 1000 ml 656 ml Packed Cells 800 ml Blood Product IV Normal Saline Flush 10 ml 20 ml Output Urine Total 400 ml 750 ml 1200 ml # Voids 1 3 10 # Bowel Movements 1 Physical Exam GENERAL: Resting comfortable. SKIN: Warm and dry. HEAD: Atraumatic. Normocephalic. EYES: Pupils equal and round. . ENT: No nasal bleeding or discharge. NECK: Trachea midline. No JVD. CARDIOVASCULAR: tachycardic, irregularly irregular, no murmurs RESPIRATORY: No accessory muscle use. Clear to auscultation. Breath sounds equal bilaterally. GASTROINTESTINAL: Abdomen soft, non-tender, nondistended. MUSCULOSKELETAL: Extremities without clubbing, cyanosis, or edema. No obvious deformities. NEUROLOGICAL: Awake and alert. No obvious cranial nerve deficits. Normal speech. PSYCHIATRIC: Appropriate mood and affect; insight and judgment normal. Laboratory Laboratory Tests Test 08/31/17 05:00 08/31/17 09:05 08/31/17 09:09 Digoxin Level 0.9 NG/ML Blood Urea Nitrogen 25 MG/DL Creatinine 1.93 MG/DL Random Glucose 90 MG/DL Calcium Level 10.7 MG/DL Sodium Level 143 MEQ/L Potassium Level 3.6 MEQ/L Chloride Level 108 MEQ/L Carbon Dioxide Level 27.3 MEQ/L Anion Gap 8 MEQ/L Estimat Glomerular Filtration Rate 33 ML/MIN White Blood Count 7.2 TH/MM3 Red Blood Count 3.63 MIL/MM3 Hemoglobin 10.3 GM/DL Hematocrit 30.9 % Mean Corpuscular Volume 85.0 FL Mean Corpuscular Hemoglobin 28.4 PG Mean Corpuscular Hemoglobin Concent 33.4 % Red Cell Distribution Width 19.7 % Platelet Count 287 TH/MM3 Mean Platelet Volume 8.0 FL Neutrophils (%) (Auto) 69.2 % Lymphocytes (%) (Auto) 15.9 % Monocytes (%) (Auto) 8.8 % Eosinophils (%) (Auto) 5.5 % Basophils (%) (Auto) 0.6 % Neutrophils # (Auto) 5.0 TH/MM3 Lymphocytes # (Auto) 1.1 TH/MM3 Monocytes # (Auto) 0.6 TH/MM3 Eosinophils # (Auto) 0.4 TH/MM3 Basophils # (Auto) 0.0 TH/MM3 CBC Comment AUTO DIFF Differential Comment AUTO DIFF CONFIRMED Platelet Estimate NORMAL Platelet Morphology Comment NORMAL Ovalocytes 1+ Assessment and Plan Problem List: (1) Atrial flutter with rapid ventricular response ICD Codes: I48.92 - Unspecified atrial flutter Status: Acute (2) HTN (hypertension) ICD Codes: I10 - Essential (primary) hypertension Assessment and Plan 82 yo WM history of colon cancer and recent L femur fracture, LLE DVT admitted for anemia, Afib RVR 1. Atrial flutter RVR. Still in atrial flutter, rated is controlled. NL TSH. Echo CHADS-Vasc=3 Already on Eliquis. Echo 08/30/17 TDS. Normal LVEF, no significant valvular disease. 2. Anemia. -Hemoccult negative. Probably mix of iron deficiency anemia and chronic disease. -Outpatient follow-up with hematology 3.Left femural fracture. No surgery, ortho recommended nonsurgical treatment. 4. LLE DVT, provoked by LLE fracture. On Eliquis. 5. ZOFIA, resolved. Wing Naty Ang MD Aug 31, 2017 21:18
[2017-09-01] VITALS: BP 150/73; PULSE 91; RESP 17; TEMP 98; O2SAT 95
[2017-09-01 00:10] VITALS: PULSE 83
[2017-09-01] MEDS: DILTIAZEM HCL 60 MG TAB PO SCH ×2 (02:15→10:32)
[2017-09-01 04:00] VITALS: BP 153/68; PULSE 78; RESP 17; TEMP 97.8; O2SAT 93
[2017-09-01 04:01] VITALS: PULSE 73
[2017-09-01 05:18] LABS: HEMATOCRIT 28.6 % (39.0-51.0); HEMOGLOBIN 9.5 GM/DL (13.0-17.0); MEAN CELL VOLUME 85.4 FL (80.0-100.0); MEAN CORPUSCULAR HEMOGLOBIN 28.4 PG (27.0-34.0); MEAN CORPUSCULAR HGB CONC 33.3 % (32.0-36.0); PLATELET COUNT 261 TH/MM3 (150-450); RED BLOOD COUNT 3.35 MIL/MM3 (4.50-5.90); RED CELL DISTRIBUTION WIDTH 19.4 % (11.6-17.2); WHITE BLOOD COUNT 6.9 TH/MM3 (4.0-11.0)
[2017-09-01 05:21] LABS: BICARBONATE 27.6 MEQ/L (21.0-32.0); CALCIUM 10.1 MG/DL (8.5-10.1); CREATININE 1.74 MG/DL (0.60-1.30)
[2017-09-01] MEDS: LEVOTHYROXINE SODIUM 75 MCG TAB PO SCH (05:59)
[2017-09-01 08:00] VITALS: BP_SYST 108; BP_SYST 167; BP_DIAS 58; BP_DIAS 74; PULSE 105; PULSE 55; PULSE 83; RESP 16; RESP 18; TEMP 97.5; O2SAT 94; O2SAT 97
[2017-09-01] MEDS ORDERED: APIX2.5T PO (08:58)
[2017-09-01] MEDS ORDERED: DILT240C44 PO (08:58)
--- NOTE | 2017-09-01 08:59 | HHI.DCPOC ---
Discharge Care Plan Diagnosis: (1) Symptomatic anemia (2) Atrial flutter with rapid ventricular response (3) HTN (hypertension) (4) Acute kidney injury (nontraumatic) (5) Dehydration (6) Type 2 diabetes mellitus Goals to Promote Your Health * To prevent worsening of your condition and complications * To maintain your health at the optimal level Directions to Meet Your Goals Take your medications as prescribed Follow your dietary instruction Follow activity as directed Keep your appointments as scheduled Take your immunizations and boosters as scheduled If your symptoms worsen call your PCP, if no PCP go to Urgent Care Center or Emergency Room Smoking is Dangerous to Your Health. Avoid second hand smoke Call the 24-hour hour crisis hotline for domestic abuse at Malina Malagon MD Sep 01, 2017 08:59
--- NOTE | 2017-09-01 08:59 | HHI.DS ---
Discharge Summary Admission Date Aug 29, 2017 at 17:05 Discharge Date: Sep 01, 2017 Admitting Diagnosis Acute renal failure, a flutter with RVR (1) Left leg DVT ICD Code: I82.402 - Acute embolism and thrombosis of unspecified deep veins of left lower extremity (2) Type 2 diabetes mellitus ICD Code: E11.9 - Type 2 diabetes mellitus without complications Status: Acute (3) Symptomatic anemia ICD Code: D64.9 - Anemia, unspecified (4) Dehydration ICD Code: E86.0 - Dehydration (5) HTN (hypertension) ICD Code: I10 - Essential (primary) hypertension (6) Acute kidney injury (nontraumatic) ICD Code: N17.9 - Acute kidney failure, unspecified Status: Acute Procedures None Brief History - From Admission HPI from the admitting physician History from patient, at the bedside, ER physician, and review of medical records. Patient reported that for the past 5 days or so, every time he checks on the monitor, his heart rate has been high. It has been in the 110s-130s. He however denies any feelings of palpitations, chest pains, shortness of breath. stated that this is happened to check it at home. On a random check. They then called their PCP today who told him to come to emergency room. states she even stopped taking gabapentin and gas aches for him because she thought that these medications were causing this high heart rate. In the emergency room, patient's heart rate was between 110-130 and he was in A. fib. She was given Cardizem 60 mg p.o. in ER after which the heart rate came down initially. At the time of my exam, patient's heart rate was around 100-120s. He remains to be asymptomatic. Patient denies any cough. Patient denies any fever. Denies any nausea/vomiting/diarrhea. Denies any blood in his stools or his urine. Also stated that he did have some cough occasionally in the past few days and had some cold-like symptoms. But did not require any medications. Patient himself reports of frequent urination. But no burning or pain on urination. Patient had a fall on June 23, 2017 and fractured his left leg. He was managed nonsurgically and was receiving physical therapy at home. He states that he is able to transfer from bed to wheelchair and does exercises on the bed. But not ambulating. Also reports of swelling in his left lower extremity because of this. Patient does have history of hypothyroidism for which he was taking thyroid medications. The states that the dose remains to be the same. He denies any other new medications. He was admitted to a rehab facility from June 27, 2017 to August 11, 2017. No New meds. CBC/BMP: 09/01/17 0415 09/01/17 0415 Significant Findings Laboratory Tests Test 08/29/17 13:38 08/30/17 04:58 08/31/17 05:00 08/31/17 09:05 Red Blood Count 3.04 MIL/MM3 (4.50-5.90) 2.30 MIL/MM3 (4.50-5.90) Hemoglobin 8.2 GM/DL (13.0-17.0) 6.3 GM/DL (13.0-17.0) Hematocrit 25.9 % (39.0-51.0) 19.5 % (39.0-51.0) Mean Corpuscular Hemoglobin Concent 31.7 % (32.0-36.0) Red Cell Distribution Width 22.7 % (11.6-17.2) 22.7 % (11.6-17.2) Eosinophils (%) (Auto) 7.1 % (0.0-4.0) 7.2 % (0.0-4.0) Eosinophils # (Auto) 0.5 TH/MM3 (0-0.4) 0.5 TH/MM3 (0-0.4) Ovalocytes 1+ (NORMAL) 1+ (NORMAL) Activated Partial Thromboplast Time 20.2 SEC (24.3-30.1) 83.5 SEC (24.3-30.1) D-Dimer Quantitative (PE/DVT) 2.35 MG/L FEU (0.00-0.50) Blood Urea Nitrogen 31 MG/DL (7-18) 29 MG/DL (7-18) 25 MG/DL (7-18) Creatinine 2.40 MG/DL (0.60-1.30) 2.20 MG/DL (0.60-1.30) 1.93 MG/DL (0.60-1.30) Total Protein 8.4 GM/DL (6.4-8.2) Calcium Level 10.8 MG/DL (8.5-10.1) 10.2 MG/DL (8.5-10.1) 10.7 MG/DL (8.5-10.1) Aspartate Amino Transf (AST/SGOT) 13 U/L (15-37) Estimat Glomerular Filtration Rate 26 ML/MIN (>89) 29 ML/MIN (>89) 33 ML/MIN (>89) Total Creatine Kinase 23 U/L (39-308) Troponin I LESS THAN 0.02 NG/ML B-Type Natriuretic Peptide 149 PG/ML (0-100) Thyroid Stimulating Hormone 3rd Gen 3.820 uIU/ML (0.358-3.740) Chloride Level 108 MEQ/L (98-107) 108 MEQ/L (98-107) Iron Level 52 MCG/DL (65-175) Percent Iron Saturation 18.9 % (20-50) Ferritin 404 NG/ML (26-388) Folate GREATER THAN 20.0 NG/ML Test 08/31/17 09:09 09/01/17 04:15 Red Blood Count 3.63 MIL/MM3 (4.50-5.90) 3.35 MIL/MM3 (4.50-5.90) Hemoglobin 10.3 GM/DL (13.0-17.0) 9.5 GM/DL (13.0-17.0) Hematocrit 30.9 % (39.0-51.0) 28.6 % (39.0-51.0) Red Cell Distribution Width 19.7 % (11.6-17.2) 19.4 % (11.6-17.2) Monocytes (%) (Auto) 8.8 % (0.0-8.0) Eosinophils (%) (Auto) 5.5 % (0.0-4.0) Ovalocytes 1+ (NORMAL) Blood Urea Nitrogen 23 MG/DL (7-18) Creatinine 1.74 MG/DL (0.60-1.30) Potassium Level 3.4 MEQ/L (3.5-5.1) Chloride Level 108 MEQ/L (98-107) Estimat Glomerular Filtration Rate 38 ML/MIN (>89) Imaging Last Impressions Lower Extremity Ultrasound 08/30/17 0000 Signed Impressions: Service Date/Time: Wednesday, August 30, 2017 08:41 - CONCLUSION: Occlusive thrombus below the left knee in the left peroneal vein. Bayron Boston MD Chest X-Ray 08/29/17 1325 Signed Impressions: Service Date/Time: August 13:56 - CONCLUSION: Linear opacity at the left lung base representing either subsegmental atelectasis or scar. Otherwise, no acute finding is identified. Armando Barbosa MD Lung Scan-V Nuclear Medicine 08/29/17 0000 Signed Impressions: Service Date/Time: August 17:41 - CONCLUSION: Low probability for pulmonary embolism. Maurice Marsh MD Femur X-Ray 08/29/17 0000 Signed Impressions: Service Date/Time: August 13:51 - CONCLUSION: No acute fracture or dislocation. Bayron Boston MD PE at Discharge GENERAL: Obese male, in no apparent distress. CARDIOVASCULAR: Normal rate and regular rhythm without murmurs, gallops, or rubs. RESPIRATORY: Good respiratory efforts. Breath sounds equal and clear to auscultation bilaterally. GASTROINTESTINAL: Abdomen soft, non-tender, non-distended. Normal active bowel sounds MUSCULOSKELETAL: Left leg with 2+ edema. Limited left leg motion due to pain. NEURO: Alert & Oriented x4 to person, place, time, situation. Moves all ext x4. Generalized weakness. PSYCH: Appropriate mood and affect. Pt update on day of discharge Patient reports he is feeling great. He is anxious to go home. Initially refused home health but later agreeable. Hospital Course 82-year-old male admitted and treated for the following: Atrial Flutter with RVR -Appreciate cardiology following. Status post digoxin. Rate controlled. Continue Cardizem. - Discussed anticoagulation option with the patient and his at bedside at length. They opted for Eliquis. Risk and benefits discussed. -Echo was a difficult study but grossly unremarkable. Acute Kidney Injury: Likely secondary to prerenal azotemia from dehydration and anemia. -I renal function improved with hydration. Patient is advised to continue with oral hydration and follow-up with PCP for repeat labs. He is nonoliguric. Anemia -Hemoccult negative. Probably mix of iron deficiency anemia and chronic disease. Patient is status post 2 units of PRBC. H&H remained stable. No active source of bleeding. -Outpatient follow-up with hematology Left leg DVT: -Provoked DVT secondary to recent femur fracture. Nonoperative, has been immobile. -Status post heparin drip. Currently on Eliquis. Pt Condition on Discharge: Good Discharge Disposition: Disch w/ Home Health Serv Discharge Time: > 30 minutes Discharge Instructions DIET: Follow Instructions for: Heart Healthy Diet Activities you can perform: Regular-No Restrictions Follow up Referrals: PCP Follow-up New Medications: Apixaban (Eliquis) 2.5 Mg Tab 2.5 MG PO BID, #60 TAB Diltiazem CD 24 HR (Diltiazem CD 24 HR) 240 Mg Caper 240 MG PO DAILY, #30 CAP 0 Refills Continued Medications: Amlodipine (Amlodipine) 2.5 Mg Tab 10 MG PO DAILY for Blood Pressure Management, #30 TAB 0 Refills Calcium Carbonate-Vitamin D (Calcium 600+D 200) 600-200 Mg-Unit Tab 1 TAB PO BID for Nutritional Supplement, #60 TAB 0 Refills Cholecalciferol (Vitamin D3) 2,000 Unit Cap 2000 UNITS PO DAILY for Nutritional Supplement, #60 CAP 0 Refills Gabapentin (Gabapentin) 100 Mg Cap 100 MG PO TID, #90 CAP 0 Refills Hydrocodone-Acetaminophen (Hydrocodone-Acetaminophen) 7.5 Mg-325 Mg Tab 1 TAB PO Q4H PRN for PAIN, #60 TAB 0 Refills Levothyroxine (Levothyroxine) 75 Mcg Tab 75 MCG PO DAILY for Thyroid, #30 TAB 0 Refills Multiple Vitamin (Multiple Vitamin) 1 Tab 1 TAB PO DAILY for Nutritional Supplement, TAB 0 Refills Malina Malagon MD Sep 01, 2017 08:59
[2017-09-01] MEDS ORDERED: POTASSIUM CHLORIDE 10 MEQ CONTROLLED RELEASE TAB PO ONE (09:00)
[2017-09-01] MEDS: CALCIUM/VITAMIN D 250 MG/125 U TAB PO SCH (10:31)
[2017-09-01] MEDS: CHOLECALCIFEROL (VIT D3) 1000 UNIT TAB PO SCH (10:31)
[2017-09-01] MEDS: MULTIVITAMIN TAB PO SCH (10:32)
[2017-09-01] MEDS: APIXABAN 2.5 MG TABLET PO SCH (10:32)
[2017-09-01] MEDS: SODIUM CHLORIDE 0.9% FLUSH 10 ML FLUSH IV FLUSH SCH (10:32)
--- NOTE | 2017-09-01 10:45 | HHI.FF ---
Face to Face Verification Diagnosis: (1) Acute kidney injury (nontraumatic) (2) Atrial flutter with rapid ventricular response (3) HTN (hypertension) (4) Dehydration (5) Type 2 diabetes mellitus (6) Symptomatic anemia Physical Therapy Order: Evaluate and Treat (Non weight bearing left leg until cleared by Orthopedics. ), Strength and gait training Home Health Nursing Order: Medical education Nursing assessment with vital signs I have seen patient Ant Mcintosh on 09/01/17. My clinical findings support the need for the requested home health care services because: Ltd mobility - disease progression Deconditioned w/ increased weakness I certify that my clinical findings support that this patient is homebound because: Unsafe to leave home unassisted Malina Malagon MD Sep 01, 2017 10:45
== END 2017-09-01 13:22 | disposition home health service (06) | DRG 309 ==
LOC: NEPC 13:07 → NEDA 17:05 → N04A 20:01
PROVIDERS: ADMIT Family Medicine; ATTEND Family Medicine
DX: I48.92 Unspecified atrial flutter (principal); N17.9 Acute kidney failure, unspecified; I82.402 Acute embolism and thrombosis of unspecified deep veins of left lower extremity; E11.22 Type 2 diabetes mellitus with diabetic chronic kidney disease; E86.0 Dehydration; E83.52 Hypercalcemia; I48.91 Unspecified atrial fibrillation; E03.9 Hypothyroidism, unspecified; N18.9 Chronic kidney disease, unspecified; I12.9 Hypertensive chronic kidney disease with stage 1 through stage 4 chronic kidney disease, or unspecified chronic kidney disease; D50.9 Iron deficiency anemia, unspecified; S72.92XD Unspecified fracture of left femur, subsequent encounter for closed fracture with routine healing; Z85.038 Personal history of other malignant neoplasm of large intestine; Z87.891 Personal history of nicotine dependence; Z96.643 Presence of artificial hip joint, bilateral; Z90.49 Acquired absence of other specified parts of digestive tract; W01.0XXD Fall on same level from slipping, tripping and stumbling without subsequent striking against object, subsequent encounter
CPT/HCPCS: 36430; 71045; 73552; 76937; 78582; 80048; 80053; 80162; 82272; 82550; 82607; 82728; 82746; 83540; 83550; 83735; 83880; 84443; 84484; 85025; 85027; 85379; 85610; 85730; 86850; 86900; 86901; 86920; 93005; 93306; 93970; 96361; 96374; A9540; A9567; J1160; J1644; J7030; J7050; P9016

== ENCOUNTER → 2017-10-08 | Outpatient (CLI) | payer MEDICARE, BC ==
[~2017-10-08] MED LIST changes: +APIX2.5T PO; +DILT240C44 PO; +GABA100C4 PO; -VITA100064 PO; -VITA500012 PO; -XARE10TA PO
[2017-10-08 16:40] LABS: HEMATOCRIT 21.7 % (39.0-51.0); HEMOGLOBIN 7.2 GM/DL (13.0-17.0)
== END ==
LOC: CLAB 16:23
PROVIDERS: ATTEND Internal Medicine Cardiovascular Disease
DX: R06.02 Shortness of breath (principal); R53.83 Other fatigue; I48.2 Chronic atrial fibrillation
CPT/HCPCS: 36415; 85014; 85018

== ENCOUNTER 2017-10-18 11:55 | Inpatient (IN) | payer MEDICARE, BC ==
[~2017-10-18] VITALS: Ht 177.8 cm; Wt 103.0 kg
[2017-10-18] VITALS (10 sets, daily range): BP systolic 142–188; BP diastolic 66–81; PULSE 78–94; RESP 13–19; TEMP 97.6–99.5; O2SAT 92–97
[2017-10-18] MEDS ORDERED: CART120C PO (12:57)
[2017-10-18] MEDS ORDERED: METO25TA3 PO (12:57)
[2017-10-18] MEDS ORDERED: APIX5TAB PO (12:57)
--- NOTE | 2017-10-18 13:05 | PD ---
HPI Chief Complaint: Abnormal Results Time Seen by Provider: 12:22 Travel History International Travel<30 days: No Contact w/Intl Traveler<30days: No Traveled to known affect area: No History of Present Illness HPI Patient is an 82-year-old male with history of DVT, type 2 diabetes, afib, anemia, hypertension hypothyroidism, remote history of colon cancer who presents the emergency room for evaluation of anemia. Patient is currently taking Eliquis for anticoagulation. Patient reports that he followed up with his visualizer, Dr. Faust last week. Reports that he was sent for blood work the same day as the office visit (Saturday), reports that he received a phone call that his hemoglobin was 7.2 patient was sent to the emergency room for a blood transfusion. Patient reports that he has been feeling weaker than normal, reports that he was unable to perform his physical therapy due to his weakness. Patient reports that he was admitted to the hospital and discharged on August 29, 2017 and at that time had a blood transfusion during admission. Patient unsure why he is anemic. Patient denies any dark stools, denies any source of bleeding. PFSH Past Medical History Hx Anticoagulant Therapy: Yes Arthritis: Yes Asthma: No Atrial Fibrillation: Yes Blood Disorders: No Anxiety: No Depression: No Heart Rhythm Problems: No Cancer: Yes (COLON CA) Cardiovascular Problems: Yes (AFIB) High Cholesterol: No Chemotherapy: No Chest Pain: No Congestive Heart Failure: No COPD: No Diabetes: No Endocrine: Yes Glaucoma: No Genitourinary: No Hepatitis: No Hiatal Hernia: No Hypertension: Yes Immune Disorder: No Musculoskeletal: Yes Neurologic: No Psychiatric: No Reproductive: No Respiratory: Yes Myocardial Infarction: No Radiation Therapy: No Sleep Apnea: No Thyroid Disease: Yes (HYPOTHYRIOD) Past Surgical History Abdominal Surgery: Yes (COLON RESECTION) AICD: No Arteriovenous Shunt: No Cardiac Surgery: No Ear Surgery: No Endocrine Surgery: No Eye Surgery: Yes (MACULAR DEGENERATION INJECTION) Genitourinary Surgery: No Gynecologic Surgery: No Insulin Pump: No Joint Replacement: Yes (HIPs, KNEEs) Neurologic Surgery: No Oral Surgery: Yes (TONSILLECTOMY) Pacemaker: No Thoracic Surgery: No Tonsillectomy: Yes Other Surgery: Yes Social History Alcohol Use: Yes (occa) Tobacco Use: No Substance Use: No Allergies-Medications (Allergen,Severity, Reaction): Coded Allergies: No Known Allergies (Verified Allergy, Unknown, 06/24/17) Reported Meds & Prescriptions Reported Meds & Active Scripts Active Calcium 600+D 200 (Calcium Carbonate-Vitamin D) 600-200 Mg-Unit Tab 1 Tab PO BID Vitamin D3 (Cholecalciferol) 2,000 Unit Cap 2,000 Units PO DAILY Reported Metoprolol Tartrate 25 Mg Tab 12.5 Mg PO BID Cartia Xt (Diltiazem ER 24 HR) 120 Mg Caper 240 Mg PO DAILY Eliquis (Apixaban) 5 Mg Tab 5 Mg PO BID Multiple Vitamin 1 Tab 1 Tab PO DAILY Levothyroxine (Levothyroxine Sodium) 75 Mcg Tab 75 Mcg PO DAILY Review of Systems General / Constitutional: No: Fever Eyes: No: Visual changes HENT: No: Headaches Cardiovascular: No: Chest Pain or Discomfort Respiratory: No: Shortness of Breath Gastrointestinal: No: Abdominal Pain Genitourinary: No: Dysuria Musculoskeletal: No: Pain Skin: No Rash Neurologic: Positive: Weakness Psychiatric: No: Depression Endocrine: No: Polydipsia Hematologic/Lymphatic: No: Easy Bruising Physical Exam Narrative GENERAL: NAD SKIN: Focused skin assessment warm/dry. HEAD: Atraumatic. Normocephalic. EYES: Pupils equal and round. No scleral icterus. No injection or drainage. ENT: No nasal bleeding or discharge. Mucous membranes pink and moist. NECK: Trachea midline. No JVD. CARDIOVASCULAR: Irregular rate and rhythm. No murmur appreciated. RESPIRATORY: No accessory muscle use. Clear to auscultation. Breath sounds equal bilaterally. GASTROINTESTINAL: Abdomen soft, non-tender, nondistended. Hepatic and splenic margins not palpable. MUSCULOSKELETAL: No obvious deformities. No clubbing. No cyanosis. No edema. NEUROLOGICAL: Awake and alert. No obvious cranial nerve deficits. Motor grossly within normal limits. Normal speech. PSYCHIATRIC: Appropriate mood and affect; insight and judgment normal. Data Data Last Documented VS Vital Signs Date Time Temp Pulse Resp B/P (MAP) Pulse Ox O2 Delivery O2 Flow Rate FiO2 10/18/17 12:52 81 18 145/66 (92) 94 Room Air 10/18/17 12:11 97.9 Orders Orders Type And Screen (10/18/17 12:35) Electrocardiogram (10/18/17 12:35) Basic Metabolic Panel (Bmp) (10/18/17 12:35) Complete Blood Count With Diff (10/18/17 12:35) Magnesium (Mg) (10/18/17 12:35) Prothrombin Time / Inr (Pt) (10/18/17 12:35) Act Partial Throm Time (Ptt) (10/18/17 12:35) Ecg Monitoring (10/18/17 12:35) Iv Access Insert/Monitor (10/18/17 12:35) Oximetry (10/18/17 12:35) Red Blood Cells (Rbc) (10/18/17 13:26) Blood Product Administration (10/18/17 13:26) Sodium Chlor 0.9% 250 Ml Inj (Ns 250 Ml (10/18/17 13:30) Protein Corrected Calcium(Pcc) (10/18/17 12:50) Place In Observation (10/18/17 ) Vital Signs (Adult) Q4H (10/18/17 14:11) Activity Oob With Assistance (10/18/17 14:11) Patient Office Rep / Telemetry .CONTINUOUS (10/18/17 14:11) Diet Clear Liquid (10/18/17 Dinner) Sodium Chlor 0.9% 1000 Ml Inj (Ns 1000 M (10/18/17 14:11) Sodium Chloride 0.9% Flush (Ns Flush) (10/18/17 14:15) Sodium Chloride 0.9% Flush (Ns Flush) (10/18/17 21:00) Ondansetron Inj (Zofran Inj) (10/18/17 14:15) Comprehensive Metabolic Panel (10/19/17 06:00) Complete Blood Count With Diff (10/19/17 06:00) Pt Request For Service (10/18/17 14:11) Scd Bilateral/Knee High YUNIEL.BID (10/18/17 14:11) Morphine Inj (Morphine Inj) (10/18/17 14:15) Morphine Inj (Morphine Inj) (10/18/17 14:15) Naloxone Inj (Narcan Inj) (10/18/17 14:15) Magnesium Hydroxide Liq (Milk Of Magnesi (10/18/17 14:15) Labs Laboratory Tests Test 10/18/17 12:50 White Blood Count 11.2 TH/MM3 Red Blood Count 2.41 MIL/MM3 Hemoglobin 6.9 GM/DL Hematocrit 21.1 % Mean Corpuscular Volume 87.8 FL Mean Corpuscular Hemoglobin 28.6 PG Mean Corpuscular Hemoglobin Concent 32.6 % Red Cell Distribution Width 21.4 % Platelet Count 286 TH/MM3 Mean Platelet Volume 7.8 FL Neutrophils (%) (Auto) 74.6 % Lymphocytes (%) (Auto) 10.1 % Monocytes (%) (Auto) 7.3 % Eosinophils (%) (Auto) 7.5 % Basophils (%) (Auto) 0.5 % Neutrophils # (Auto) 8.3 TH/MM3 Lymphocytes # (Auto) 1.1 TH/MM3 Monocytes # (Auto) 0.8 TH/MM3 Eosinophils # (Auto) 0.8 TH/MM3 Basophils # (Auto) 0.1 TH/MM3 CBC Comment AUTO DIFF Differential Comment AUTO DIFF CONFIRMED Ovalocytes 1+ Prothrombin Time 11.4 SEC Prothromb Time International Ratio 1.1 RATIO Activated Partial Thromboplast Time 21.8 SEC Blood Urea Nitrogen 59 MG/DL Creatinine 5.11 MG/DL Random Glucose 98 MG/DL Calcium Level 13.8 MG/DL Magnesium Level 2.3 MG/DL Sodium Level 141 MEQ/L Potassium Level 3.5 MEQ/L Chloride Level 103 MEQ/L Carbon Dioxide Level 24.9 MEQ/L Anion Gap 13 MEQ/L Estimat Glomerular Filtration Rate 11 ML/MIN MDM Medical Decision Making Medical Screen Exam Complete: Yes Emergency Medical Condition: Yes Medical Record Reviewed: Yes Interpretation(s) EKG at 1259: Aflutter at 79bpm, qt/qtc: 373/408, no acute changes Vital Signs Date Time Temp Pulse Resp B/P (MAP) Pulse Ox O2 Delivery O2 Flow Rate FiO2 10/18/17 12:52 81 18 145/66 (92) 94 Room Air 10/18/17 12:11 97.9 86 16 154/69 (97) 97 Differential Diagnosis Electrolyte abnormality, anemia, GI bleed Narrative Course During the course of the patients emergency department visit, the patients history, examination, and differential diagnosis were reviewed with the patient. The patient was placed on a monitor worker with oximetry and frequent blood pressure monitoring. The patient had an IV access obtained and blood work sent for analysis. Previous records were reviewed, patient was recently discharged after she was diagnosed with anemia most likely from mixed iron deficiency as well as chronic disease. Patient was transfused 2 units of packed red blood cells during his past admission, no obvious source of bleeding was found at that time. Patient' s only symptoms today is generalized weakness, lab work including type and screen was sent. When he was discharged on September 01, his hgb was 9.5. The patients laboratory studies were reviewed and remarkable for Laboratory Tests Test 10/18/17 12:50 White Blood Count 11.2 TH/MM3 (4.0-11.0) Red Blood Count 2.41 MIL/MM3 (4.50-5.90) Hemoglobin 6.9 GM/DL (13.0-17.0) Hematocrit 21.1 % (39.0-51.0) Mean Corpuscular Volume 87.8 FL (80.0-100.0) Mean Corpuscular Hemoglobin 28.6 PG (27.0-34.0) Mean Corpuscular Hemoglobin Concent 32.6 % (32.0-36.0) Red Cell Distribution Width 21.4 % (11.6-17.2) Platelet Count 286 TH/MM3 (150-450) Mean Platelet Volume 7.8 FL (7.0-11.0) Neutrophils (%) (Auto) 74.6 % (16.0-70.0) Lymphocytes (%) (Auto) 10.1 % (9.0-44.0) Monocytes (%) (Auto) 7.3 % (0.0-8.0) Eosinophils (%) (Auto) 7.5 % (0.0-4.0) Basophils (%) (Auto) 0.5 % (0.0-2.0) Neutrophils # (Auto) 8.3 TH/MM3 (1.8-7.7) Lymphocytes # (Auto) 1.1 TH/MM3 (1.0-4.8) Monocytes # (Auto) 0.8 TH/MM3 (0-0.9) Eosinophils # (Auto) 0.8 TH/MM3 (0-0.4) Basophils # (Auto) 0.1 TH/MM3 (0-0.2) CBC Comment AUTO DIFF Prothrombin Time 11.4 SEC (9.8-11.6) Prothromb Time International Ratio 1.1 RATIO Activated Partial Thromboplast Time 21.8 SEC (24.3-30.1) Pt's hgb 6.9 - patient will require blood transfusion. Patient does have remote history of colon cancer - last colonoscopy was 5 years ago - he is due for a colonoscopy this year Physician Communication Physician Communication case reviewed with Dr. Mares who accepts pt to service Diagnosis Primary Impression: Symptomatic anemia Admitting Information Admitting Physician Requests: Admit Cindy Busch DO Oct 18, 2017 13:05
[2017-10-18 13:16] LABS: AUTOMATED NEUTROPHIL # 8.3 TH/MM3 (1.8-7.7); BASOPHIL # 0.1 TH/MM3 (0-0.2); BASOPHIL % 0.5 % (0.0-2.0); EOSINOPHIL # 0.8 TH/MM3 (0-0.4); EOSINOPHIL % 7.5 % (0.0-4.0); LYMPH % 10.1 % (9.0-44.0); LYMPHOCYTE # 1.1 TH/MM3 (1.0-4.8); MEAN CELL VOLUME 87.8 FL (80.0-100.0); MEAN CORPUSCULAR HEMOGLOBIN 28.6 PG (27.0-34.0); MEAN CORPUSCULAR HGB CONC 32.6 % (32.0-36.0); MEAN PLATELET VOLUME 7.8 FL (7.0-11.0); MONO % 7.3 % (0.0-8.0); MONOCYTE # 0.8 TH/MM3 (0-0.9); NEUT % 74.6 % (16.0-70.0); PLATELET COUNT 286 TH/MM3 (150-450); RED BLOOD COUNT 2.41 MIL/MM3 (4.50-5.90); RED CELL DISTRIBUTION WIDTH 21.4 % (11.6-17.2); WHITE BLOOD COUNT 11.2 TH/MM3 (4.0-11.0)
[2017-10-18 13:26] LABS: HEMATOCRIT 21.1 % (39.0-51.0); HEMOGLOBIN 6.9 GM/DL (13.0-17.0)
[2017-10-18 13:27] LABS: INTERNATIONAL NORMALIZED RATIO 1.1 RATIO; PROTHROMBIN TIME - PATIENT 11.4 SEC (9.8-11.6)
[2017-10-18] MEDS ORDERED: SODIUM CHLOR 0.9% 250 ML INJ 250 ML IV ONE (13:30)
[2017-10-18 13:39] LABS: BICARBONATE 24.9 MEQ/L (21.0-32.0); CALCIUM 13.8 MG/DL (8.5-10.1); CREATININE 5.11 MG/DL (0.60-1.30); MAGNESIUM 2.3 MG/DL (1.5-2.5)
[2017-10-18 13:56] LABS: OVALOCYTES 1+ (NORMAL)
[2017-10-18 14:17] LABS: TOTAL PROTEIN 8.3 GM/DL (6.4-8.2)
[2017-10-18 14:19] LABS: CALCIUM-PROTEIN CORRECTED 12.9 MG/DL (8.5-10.1)
[2017-10-18] MEDS ORDERED: ONDANSETRON ODT 4 MG TAB PO PRN (14:45)
[2017-10-18] MEDS ORDERED: GLUCAGON 1 MG/ML VIAL OTHER PRN (15:45)
[2017-10-18] MEDS ORDERED: DEXTROSE 50% IN WATER 50 ML VIAL(D50) IV PUSH PRN (15:45)
[2017-10-18] MEDS ORDERED: PILL SPLITTER OTHER PRN (15:45)
--- NOTE | 2017-10-18 15:47 | HHI.HP ---
[facility] Service [facility] Primary Care Physician Non-Staff Admission Diagnosis symptomatic anemia Diagnoses: Travel History International Travel<30 Days: No Contact w/Intl Traveler <30 Da: No Traveled to Known Affected Are: No History of Present Illness Mr. Mcintosh is an 82-year-old male. He came in the hospital secondary to progressive anemia. Hemoglobin today is 6.9. He has a past history of bleed which was not found to be GI related. Additional findings today are acute renal failure and hypercalcemia. He recalls that he might have had some kidney disease in the past but cannot specify. Looking in our past records his highest creatinine value have been 3.5 but currently his creatinine levels at 5.11. She does not report being dehydrated. He has had a fracture approximately 3 months ago and has been on bedrest until recently for this. Additionally he is on Eliquis. Eliquis combined with his renal condition may be contributory to blood loss. Renal dysfunction can also be contributory to his hypercalcemia. Shortness of breath and weakness have been his primary complaints. No other complaints today. Review of Systems Constitutional: COMPLAINS OF: Fatigue, DENIES: Fever, Chills Eyes: DENIES: Diplopia, Eye inflammation, Eye pain Ears, nose, mouth, throat: DENIES: Hearing loss, Vertigo, Nasal discharge Respiratory: DENIES: Cough, Snoring, Wheezing Cardiovascular: DENIES: Chest pain, Palpitations, Syncope Gastrointestinal: DENIES: Abdominal pain, Black stools, Bloody stools Musculoskeletal: COMPLAINS OF: Stiffness, Back pain, DENIES: Joint pain, Muscle aches Integumentary: DENIES: Abnormal pigmentation, Nail changes, Pruritus Hematologic/lymphatic: DENIES: Bruising, Lymphadenopathy Immunologic/allergic: DENIES: Eczema, Urticaria Neurologic: DENIES: Abnormal gait, Headache, Paresthesias Psychiatric: DENIES: Anxiety, Confusion, Hallucinations Except as stated in HPI: all other systems reviewed are Neg Past Family Social History Past Medical History htn no prior hx of cad/chf/afib prior caesar secondary to nsaid in 2015 hypothyroidism colon cancer- diagnosed 1983- s/p resection, no chemo or radiation MUGUS- about 5 yrs ago chronic anemia Past Surgical History colon cancer resection laminectomy 3 hip sx 2 knee sx Reported Medications Reported Meds & Active Scripts Active Calcium 600+D 200 (Calcium Carbonate-Vitamin D) 600-200 Mg-Unit Tab 1 Tab PO BID Vitamin D3 (Cholecalciferol) 2,000 Unit Cap 2,000 Units PO DAILY Reported Metoprolol Tartrate 25 Mg Tab 12.5 Mg PO BID Cartia Xt (Diltiazem ER 24 HR) 120 Mg Caper 240 Mg PO DAILY Eliquis (Apixaban) 5 Mg Tab 5 Mg PO BID Multiple Vitamin 1 Tab 1 Tab PO DAILY Levothyroxine (Levothyroxine Sodium) 75 Mcg Tab 75 Mcg PO DAILY Allergies: Coded Allergies: No Known Allergies (Verified Allergy, Unknown, 06/24/17) Active Ordered Medications Administered Medications Medications (Trade) Dose Ordered Sig/Reggie Route PRN Reason Start Time Stop Time Status Last Admin Dose Admin Sodium Chloride 250 ml @ 15 mls/hr ONCE ONCE IV 10/18/17 13:30 10/19/17 06:09 10/18/17 14:23 Family History sister- colon cancer Social History smokes pipes in the past quit no etoh abuse or drug abuse Physical Exam Vital Signs Vital Signs Date Time Temp Pulse Resp B/P (MAP) Pulse Ox O2 Delivery O2 Flow Rate FiO2 10/18/17 15:00 97.9 90 16 184/78 (113) 92 Room Air 10/18/17 14:32 97.6 83 16 165/72 95 10/18/17 14:20 98.0 81 13 166/72 95 10/18/17 12:52 81 18 145/66 (92) 94 Room Air 10/18/17 12:11 97.9 86 16 154/69 (97) 97 Physical Exam GENERAL: NAD, A&Ox3 HEAD: Normocephalic. NECK: Supple, trachea midline. No lymphadenopathy. EYES: No scleral icterus. No injection or drainage. CARDIOVASCULAR: Regular rate and rhythm without murmurs, gallops, or rubs. RESPIRATORY: Breath sounds equal bilaterally. No accessory muscle use. GASTROINTESTINAL: Abdomen soft, non-tender, nondistended. MUSCULOSKELETAL: No cyanosis, or edema. Decreased range of motion at left lower extremity SKIN: Warm and dry. NEURO: No focal neurological deficitis. Laboratory Laboratory Tests Test 10/18/17 12:50 White Blood Count 11.2 Red Blood Count 2.41 Hemoglobin 6.9 Hematocrit 21.1 Mean Corpuscular Volume 87.8 Mean Corpuscular Hemoglobin 28.6 Mean Corpuscular Hemoglobin Concent 32.6 Red Cell Distribution Width 21.4 Platelet Count 286 Mean Platelet Volume 7.8 Neutrophils (%) (Auto) 74.6 Lymphocytes (%) (Auto) 10.1 Monocytes (%) (Auto) 7.3 Eosinophils (%) (Auto) 7.5 Basophils (%) (Auto) 0.5 Neutrophils # (Auto) 8.3 Lymphocytes # (Auto) 1.1 Monocytes # (Auto) 0.8 Eosinophils # (Auto) 0.8 Basophils # (Auto) 0.1 CBC Comment AUTO DIFF Differential Comment AUTO DIFF CONFIRMED Ovalocytes 1+ Prothrombin Time 11.4 Prothromb Time International Ratio 1.1 Activated Partial Thromboplast Time 21.8 Blood Urea Nitrogen 59 Creatinine 5.11 Random Glucose 98 Total Protein 8.3 Calcium Level 13.8 Magnesium Level 2.3 Sodium Level 141 Potassium Level 3.5 Chloride Level 103 Carbon Dioxide Level 24.9 Anion Gap 13 Estimat Glomerular Filtration Rate 11 Protein Corrected Calcium 12.9 Result Diagram: 10/18/17 1250 10/18/17 1250 Caprini VTE Risk Assessment Caprini VTE Risk Assessment: Mod/High Risk (score >= 2) VTE Pharm Contraindication: Active bleeding Caprini Risk Assessment Model Point Value = 1 Point Value = 2 Point Value = 3 Point Value = 5 Age 41-60 Minor surgery BMI > 25 kg/m2 Swollen legs Varicose veins or History of unexplained or recurrent spontaneous Oral contraceptives or hormone replacement Sepsis (< 1 month) Serious lung disease, including pneumonia (< 1 month) Abnormal pulmonary function Acute myocardial infarction Congestive heart failure (< 1 month) History of inflammatory bowel disease Medical patient at bed rest Age 61-74 Arthroscopic surgery Major open surgery (> 45 min) Laparoscopic surgery (> 45 min) Malignancy Confined to bed (> 72 hours) Immobilizing plaster cast Central venous access Age >= 75 History of VTE Family history of VTE Factor V Leiden Prothrombin [id number] Lupus anticoagulant Anticardiolipin antibodies Elevated serum homocysteine Heparin-induced thrombocytopenia Other congenital or acquired thrombophilia Stroke (< 1 month) Elective arthroplasty Hip, pelvis, or leg fracture Acute spinal cord injury (< 1 month) Prophylaxis Regimen Total Risk Factor Score Risk Level Prophylaxis Regimen 0-1 Low Early ambulation 2 Moderate Order ONE of the following: *Sequential Compression Device (SCD) *Heparin 5000 units SQ BID 3-4 Higher Order ONE of the following medications: *Heparin 5000 units SQ TID *Enoxaparin/Lovenox 40 mg SQ daily (WT < 150 kg, CrCl > 30 mL/min) *Enoxaparin/Lovenox 30 mg SQ daily (WT < 150 kg, CrCl > 10-29 mL/min) *Enoxaparin/Lovenox 30 mg SQ BID (WT < 150 kg, CrCl > 30 mL/min) AND/OR *Sequential Compression Device (SCD) 5 or more Highest Order ONE of the following medications: *Heparin 5000 units SQ TID (Preferred with Epidurals) *Enoxaparin/Lovenox 40 mg SQ daily (WT < 150 kg, CrCl > 30 mL/min) *Enoxaparin/Lovenox 30 mg SQ daily (WT < 150 kg, CrCl > 10-29 mL/min) *Enoxaparin/Lovenox 30 mg SQ BID (WT < 150 kg, CrCl > 30 mL/min) AND *Sequential Compression Device (SCD) Assessment and Plan Problem List: (1) Acute renal failure ICD Code: N17.9 - Acute kidney failure, unspecified (2) Hypercalcemia ICD Code: E83.52 - Hypercalcemia (3) Symptomatic anemia ICD Code: D64.9 - Anemia, unspecified (4) Left leg DVT ICD Code: I82.402 - Acute embolism and thrombosis of unspecified deep veins of left lower extremity (5) Type 2 diabetes mellitus ICD Code: E11.9 - Type 2 diabetes mellitus without complications Status: Acute (6) HTN (hypertension) ICD Code: I10 - Essential (primary) hypertension Assessment and Plan 82-year-old male admitted secondary to acute anemia with acute renal failure and hypercalcemia Acute blood loss anemia History of chronic anemia Hemoglobin is 6.9 at time of admit etiology may be related to Eliquis coupled with renal failure stop Eliquis Check stool for blood Blood transfusion in process when seen Monitor H&H Acute renal failure Etiology uncertain nephrology consulted IV hydration Follow renal function Avoid nephrotoxins Hypercalcemia IV hydration Follow calcium level If calcium level rises >14, will consider further treatments Follow on telemetry Check parathyroid hormone levels Hypertension Continue baseline treatment Follow blood pressures Adjust treatments as needed Continue metoprolol Continue diltiazem Atrial fibrillation Left lower extremity DVT Eliquis has to be stopped secondary to active bleeding Follow on telemetry Continue metoprolol Continue diltiazem hypothyroidism Continue baseline supplement Follow as an outpatient Hx colon cancer Could be contributory Stool testing as above History of monoclonal gammopathy (MGUS) Chronic anemia MGUS Could be contributory Consider hematology consult if GI workup is negative DVT prophylaxis SCDs Physician Certification 2 Midnight Certification Type: Admission for Inpatient Services Order for Inpatient Services The services are ordered in accordance with Medicare regulations or non- Medicare payer requirements, as applicable. In the case of services not specified as inpatient-only, they are appropriately provided as inpatient services in accordance with the 2-midnight benchmark. Estimated LOS (days): 4 days is the estimated time the patient will need to remain in the hospital, assuming treatment plan goals are met and no additional complications. Post-Hospital Plan: [facility] Mares MD Oct 18, 2017 15:47
[2017-10-18] MEDS: SODIUM CHLOR 0.9% 1000 ML INJ 1,000 ML IV SCH (16:13)
[2017-10-18] MEDS ORDERED: INSULIN ASPART SUPPLEMENTAL SCALE SQ SCH (17:00)
[2017-10-18 19:25] LABS: IRON (FE) 55 MCG/DL (65-175)
[2017-10-18 19:50] LABS: % SATURATION IRON PROFILE 19.8 % (20-50); FERRITIN 962 NG/ML (26-388); TOTAL IRON BINDING CAPACITY 277 MCG/DL (250-450)
[2017-10-18] MEDS: METOPROLOL TARTRATE 25 MG TAB PO SCH (19:58)
[2017-10-18] MEDS: SODIUM CHLORIDE 0.9% FLUSH 10 ML FLUSH IV FLUSH SCH (19:59)
[2017-10-18] MEDS: CALCIUM/VITAMIN D 250 MG/125 U TAB PO SCH (19:59)
[2017-10-18] MEDS: DOCUSATE SODIUM 100 MG CAP PO SCH (19:59)
[2017-10-18] MEDS: DILTIAZEM-CD 240 MG CAP ER PO SCH (21:23)
[2017-10-19] VITALS (10 sets, daily range): BP systolic 103–195; BP diastolic 55–86; PULSE 45–95; RESP 17–20; TEMP 97.2–98.2; O2SAT 92–97
[2017-10-19] MEDS: SODIUM CHLOR 0.9% 1000 ML INJ 1,000 ML IV SCH ×3 (02:59→16:56)
[2017-10-19 06:50] LABS: AUTOMATED NEUTROPHIL # 7.8 TH/MM3 (1.8-7.7); BASOPHIL % 0.5 % (0.0-2.0); EOSINOPHIL # 0.7 TH/MM3 (0-0.4); EOSINOPHIL % 7.1 % (0.0-4.0); HEMATOCRIT 21.7 % (39.0-51.0); HEMOGLOBIN 7.2 GM/DL (13.0-17.0); LYMPHOCYTE # 0.9 TH/MM3 (1.0-4.8); MEAN CELL VOLUME 85.5 FL (80.0-100.0); MEAN CORPUSCULAR HEMOGLOBIN 28.4 PG (27.0-34.0); MEAN CORPUSCULAR HGB CONC 33.2 % (32.0-36.0); MEAN PLATELET VOLUME 7.6 FL (7.0-11.0); MONO % 7.2 % (0.0-8.0); MONOCYTE # 0.7 TH/MM3 (0-0.9); NEUT % 76.2 % (16.0-70.0); PLATELET COUNT 240 TH/MM3 (150-450); RED BLOOD COUNT 2.53 MIL/MM3 (4.50-5.90); RED CELL DISTRIBUTION WIDTH 20.6 % (11.6-17.2); WHITE BLOOD COUNT 10.2 TH/MM3 (4.0-11.0)
[2017-10-19] MEDS: LEVOTHYROXINE SODIUM 75 MCG TAB PO SCH (07:08)
[2017-10-19 07:13] LABS: ALBUMIN 3.2 GM/DL (3.4-5.0); BICARBONATE 26.2 MEQ/L (21.0-32.0); CALCIUM 12.5 MG/DL (8.5-10.1); CREATININE 4.47 MG/DL (0.60-1.30); TOTAL BILIRUBIN ADULT 0.3 MG/DL (0.2-1.0); TOTAL PROTEIN 7.1 GM/DL (6.4-8.2)
[2017-10-19 07:19] LABS: CALCIUM-PROTEIN CORRECTED 12.6 MG/DL (8.5-10.1)
[2017-10-19] MEDS: MAGNESIUM HYDROXIDE SUSP 30 ML CUP PO PRN (07:57)
[2017-10-19] MEDS: DILTIAZEM-CD 240 MG CAP ER PO SCH (07:57)
[2017-10-19] MEDS: CHOLECALCIFEROL (VIT D3) 1000 UNIT TAB PO SCH (07:57)
[2017-10-19] MEDS: CALCIUM/VITAMIN D 250 MG/125 U TAB PO SCH (07:58)
[2017-10-19] MEDS: SODIUM CHLORIDE 0.9% FLUSH 10 ML FLUSH IV FLUSH SCH ×2 (07:58→22:29)
[2017-10-19] MEDS: DOCUSATE SODIUM 100 MG CAP PO SCH ×2 (07:58→22:28)
[2017-10-19] MEDS: MULTIVITAMIN TAB PO SCH (07:58)
[2017-10-19] MEDS: METOPROLOL TARTRATE 25 MG TAB PO SCH ×2 (07:58→22:28)
[2017-10-19] MEDS ORDERED: DILTIAZEM-CD 240 MG CAP ER PO SCH (09:00)
[2017-10-19 09:14] LABS: BANDS 8 % (0-6); LYMPHOCYTES 11 % (9-44); METAMYELOCYTES 2 % (0-1); MONOCYTES 5 % (0-8); NEUTROPHIL # MANUAL DIFF 8.2 TH/MM3 (1.8-7.7); OVALOCYTES 1+ (NORMAL); POLYS (SEG NEUTROPHILS) 70 % (16-70)
[2017-10-19] MEDS: cloNIDine HCL 0.1 MG TAB PO PRN (09:44)
--- NOTE | 2017-10-19 09:46 | HHI.PR ---
Subjective Remarks Follow-up visit progressive anemia, on Eliquis secondary to atrial fibrillation and DVT, acute renal failure. Patient seen and examined today. Appears to be confused. Repetitive. States that have to talk to his for all of his conditions and medications. Unable to provide meaningful history. States he is unable to walk. Denies pain or discomfort, shortness of breath or dyspnea. Denies fevers, chills, nausea, vomiting. Mathis catheter in place draining clear yellow urine. Objective Vitals Vital Signs Date Time Temp Pulse Resp B/P (MAP) Pulse Ox O2 Delivery O2 Flow Rate FiO2 10/19/17 09:41 179/86 (117) 10/19/17 08:00 97.8 95 17 195/86 (122) 92 10/19/17 04:45 97.5 87 19 192/82 (118) 93 10/19/17 00:15 97.8 83 18 161/73 (102) 93 10/18/17 21:28 78 10/18/17 19:45 99.5 94 17 187/80 (115) 95 10/18/17 17:38 97.7 87 19 188/81 (116) 95 10/18/17 15:43 98.3 87 18 146/67 (93) 93 10/18/17 15:39 (113) 10/18/17 15:00 97.9 90 16 184/78 (113) 92 Room Air 10/18/17 14:32 97.6 83 16 165/72 95 10/18/17 14:20 98.0 81 13 166/72 95 10/18/17 12:52 81 18 145/66 (92) 94 Room Air 10/18/17 12:11 97.9 86 16 154/69 (97) 97 I/O 10/18/17 10/18/17 10/18/17 10/19/17 10/19/17 10/19/17 07:00 15:00 23:00 07:00 15:00 23:00 Intake Total 1360 ml Output Total 200 ml 2700 ml Balance -200 ml -1340 ml Intake Oral 360 ml IV Total 1000 ml Output Urine Total 200 ml 2700 ml # Voids 1 # Bowel Movements 0 Result Diagram: 10/19/17 0611 10/19/17 0611 Objective Remarks GENERAL: This is a well-nourished, well-developed patient, in no apparent distress. SKIN: Warm and dry. HEENT: Normocephalic. Pupils equal round and reactive. Nose without bleeding. Airway patent. NECK: Trachea midline. CARDIOVASCULAR: Irregular rate without murmurs, gallops, or rubs. RESPIRATORY: Clear to auscultation. Breath sounds equal bilaterally. No wheezes , rales, or rhonchi. GASTROINTESTINAL: Abdomen soft, non-tender, nondistended. Bowel Sounds normoactive x4. : Mathis catheter in place draining yellow urine, clear MUSCULOSKELETAL: Extremities without clubbing, cyanosis, or edema. NEUROLOGICAL: Awake and alert. Oriented to person. Normal speech. A/P Problem List: (1) Acute renal failure ICD Code: N17.9 - Acute kidney failure, unspecified (2) Hypercalcemia ICD Code: E83.52 - Hypercalcemia (3) Symptomatic anemia ICD Code: D64.9 - Anemia, unspecified (4) Left leg DVT ICD Code: I82.402 - Acute embolism and thrombosis of unspecified deep veins of left lower extremity (5) Type 2 diabetes mellitus ICD Code: E11.9 - Type 2 diabetes mellitus without complications Status: Acute (6) HTN (hypertension) ICD Code: I10 - Essential (primary) hypertension Assessment and Plan 82-year-old male who came in the hospital secondary to progressive anemia, Hemoglobin 6.9. Acute blood loss anemia History of chronic anemia Hemoglobin is 6.9 at time of admit etiology may be related to Eliquis coupled with renal failure stop Eliquis Check stool for blood Blood transfusion x1 Monitor H&H Acute renal failure Etiology uncertain nephrology consulted IV hydration Follow renal function Avoid nephrotoxins Hypercalcemia IV hydration Follow calcium level If calcium level rises >14, will consider further treatments Follow on telemetry Parathyroid hormone levels PTH intact 9.7 Hypertension, uncontrolled Adjust treatments as needed Continue metoprolol, increased to 25 mg with holding parameters Continue diltiazem, 240 mg twice daily will decrease to 240 mg daily as it was previously discharged with 240 mg daily Atrial fibrillation Left lower extremity DVT Eliquis has to be stopped secondary to active bleeding Follow on telemetry Continue metoprolol Continue diltiazem Hypothyroidism Continue baseline supplement Check TSH Hx colon cancer Could be contributory Stool testing as above, has not had a BM yet History of monoclonal gammopathy (MGUS) Chronic anemia MGUS Could be contributory Consider hematology consult if GI workup is negative DVT prophylaxis SCDs, chemoprophylaxis held secondary to anemia suspicion of bleed Discharge Planning Plan to DC home when clinically improved Venecia Rutledge Oct 19, 2017 09:46
[2017-10-19] MEDS ORDERED: METOPROLOL TARTRATE 25 MG TAB PO ONE (10:00)
--- NOTE | 2017-10-19 11:40 | PD.CONS ---
HPI Service Nephrology Consult Requested By Dr. Mares Reason for Consult ZOFIA, Hypercalcemia Primary Care Physician Dr. 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 He has been having some fatigue and weakness over the past few weeks and a CBC showed a Hgb of 7.2 prompting evaluation at the hospital. The patient's is the primary historian. Was admitted here in Jun for a L femur fx that he sustained at home while turning while moving TV tray causing a twist and fall type injury on his left leg. reports spiral fracture of his left femur that he underwent ORIF. He subsequently developed a DVT in the same leg. Renal functions during that admission were overall normal with SCr at 0.8 baseline. Serum calcium normal at this admission at 8.6-9.0. In August, he developed A fib with RVR and had acute renal insufficiency though nephrology services were not called as his functions improved with correction of RVR (admitting SCr 2.40 on 08/29 and discharge on 09/01 at 1.74). Noted mild hypercalcemia during this admission at 10.7. 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 Byrne, but was many years ago as per the . Says that he never underwent bone marrow bx, but had multiple labs that "didn't change" so they opted to stop following up. Given his recent anemia, his PCP did refer him to Dr. Jordyn Garcia, but appointment not until November. No known CKD hx. Denies any recent NVD No NSAID use No recent abx. Besides the aforementioned health history as of recent, he has been in his usual state of health as per his . Has been on Calcium 600mg with 500IU Vitamin D, with an additional Vitamin D3 1000IU daily since his femur fx. Admitting SCr 2.11 that has improved to 4.47 at consult. Serum CCa 12.9 at admission that improved slightly to 12.6. iPTH 9.7 (Macarena Smith) Review of Systems Constitutional: COMPLAINS OF: Fatigue Gastrointestinal: COMPLAINS OF: Constipation (Macarena Smith) Past Family Social History Allergies: Coded Allergies: No Known Allergies (Verified Allergy, Unknown, 06/24/17) Past Medical History MGUS dx many years ago that was previously being followed by Dr. Byrne. Recently referred to Dr. Garcia, but has not had initial visit yet L femur fx in Jun 2017 DVT Jun 2017 A fib with previous RVR now rate controlled Anemia Hypothyroidism HTN HX of colon CA in the 1980s treated by resection Past Surgical History Colon resection Bilat hip replacement L femur ORIF Bilat knee replacement Laminectomy Reported Medications Calcium 600+D 200 (Calcium Carbonate-Vitamin D) 600-200 Mg-Unit Tab 1 Tab PO BID Vitamin D3 (Cholecalciferol) 2,000 Unit Cap 1,000 Units PO DAILY Metoprolol Tartrate 25 Mg Tab 12.5 Mg PO BID Cartia Xt (Diltiazem ER 24 HR) 120 Mg Caper 240 Mg PO BID Multiple Vitamin 1 Tab 1 Tab PO DAILY Levothyroxine (Levothyroxine Sodium) 75 Mcg Tab 75 Mcg PO DAILY Active Ordered Medications Current Medications Medications (Trade) Dose Ordered Sig/Reggie Route Start Time Stop Time Status Last Admin (NS Flush) 2 ml UNSCH PRN IV FLUSH 10/18/17 14:15 (NS Flush) 2 ml BID IV FLUSH 10/18/17 21:00 (Zofran Odt) 4 mg Q6H PRN PO 10/18/17 14:45 (Morphine Inj) 2 mg Q3H PRN IV 10/18/17 14:45 (Morphine Inj) 4 mg Q3H PRN IV 10/18/17 14:45 (Narcan Inj) 0.4 mg UNSCH PRN IV PUSH 10/18/17 14:15 (Milk Of Magnesia Liq) 30 ml Q12H PRN PO 10/18/17 14:15 10/19/17 07:57 (Vitamin D3) 2,000 units DAILY PO 10/19/17 09:00 10/19/17 07:57 (Synthroid) 75 mcg DAILY@0600 PO 10/19/17 06:00 10/19/17 07:08 (Oscal-D 250-125) 500 mg BID PO 10/18/17 21:00 10/19/17 07:58 (Theragran) 1 tab DAILY PO 10/19/17 09:00 10/19/17 07:58 (Pill Splitter) 1 ea UNSCH PRN OTHER 10/18/17 15:45 (Colace) 100 mg BID PO 10/18/17 21:00 10/19/17 07:58 (Catapres) 0.1 mg Q6H PRN PO 10/18/17 18:30 10/19/17 09:44 (Lopressor) 25 mg BID PO 10/19/17 21:00 Sodium Chloride 1,000 ml @ 42 mls/hr [id number] IV 10/19/17 10:00 10/19/17 10:19 (Cardizem Cd) 240 mg DAILY PO 10/20/17 09:00 Family History NC Social History Lives locally with Denies any recent tobacco use---quit pipe smoking about 5 years ago Denies EtOH Denies illicits (Macarena Smith) Physical Exam Vital Signs Vital Signs Date Time Temp Pulse Resp B/P (MAP) Pulse Ox O2 Delivery O2 Flow Rate FiO2 10/19/17 09:41 179/86 (117) 10/19/17 08:00 97.8 95 17 195/86 (122) 92 10/19/17 04:45 97.5 87 19 192/82 (118) 93 10/19/17 00:15 97.8 83 18 161/73 (102) 93 10/18/17 21:28 78 10/18/17 19:45 99.5 94 17 187/80 (115) 95 10/18/17 17:38 97.7 87 19 188/81 (116) 95 10/18/17 15:43 98.3 87 18 146/67 (93) 93 10/18/17 15:39 (113) 10/18/17 15:00 97.9 90 16 184/78 (113) 92 Room Air 10/18/17 14:32 97.6 83 16 165/72 95 10/18/17 14:20 98.0 81 13 166/72 95 10/18/17 12:52 81 18 145/66 (92) 94 Room Air 10/18/17 12:11 97.9 86 16 154/69 (97) 97 Physical Exam GENERAL: Pt sitting in chair. In NAD, but does mention some abdominal discomfort 2/2 to constipation. SKIN: Warm and dry. HEAD: Atraumatic. Normocephalic. EYES: Pupils equal and round. No scleral icterus. No injection or drainage. ENT: No nasal bleeding or discharge. Mucous membranes pink and moist. NECK: Trachea midline. No JVD. CARDIOVASCULAR: Irregularly irregular rhythm RESPIRATORY: No accessory muscle use. Clear to auscultation. Breath sounds equal bilaterally. GASTROINTESTINAL: Abdomen soft, non-tender, nondistended. Hepatic and splenic margins not palpable. MUSCULOSKELETAL: Extremities without clubbing, cyanosis, trace edema L ankle that the patient describes as chronic 2/2 to previous DVT. No edema in RLE. NEUROLOGICAL: Awake and alert. Normal speech. PSYCHIATRIC: Appropriate mood and affect; insight and judgment normal. Laboratory Laboratory Tests Test 10/18/17 12:50 10/18/17 18:30 10/19/17 06:11 White Blood Count 11.2 10.2 Red Blood Count 2.41 2.53 Hemoglobin 6.9 7.2 Hematocrit 21.1 21.7 Mean Corpuscular Volume 87.8 85.5 Mean Corpuscular Hemoglobin 28.6 28.4 Mean Corpuscular Hemoglobin Concent 32.6 33.2 Red Cell Distribution Width 21.4 20.6 Platelet Count 286 240 Mean Platelet Volume 7.8 7.6 Neutrophils (%) (Auto) 74.6 76.2 Lymphocytes (%) (Auto) 10.1 9.0 Monocytes (%) (Auto) 7.3 7.2 Eosinophils (%) (Auto) 7.5 7.1 Basophils (%) (Auto) 0.5 0.5 Neutrophils # (Auto) 8.3 7.8 Lymphocytes # (Auto) 1.1 0.9 Monocytes # (Auto) 0.8 0.7 Eosinophils # (Auto) 0.8 0.7 Basophils # (Auto) 0.1 0.0 CBC Comment AUTO DIFF AUTO DIFF Differential Comment AUTO DIFF CONFIRMED FINAL DIFF MANUAL Ovalocytes 1+ 1+ Prothrombin Time 11.4 Prothromb Time International Ratio 1.1 Activated Partial Thromboplast Time 21.8 Blood Urea Nitrogen 59 50 Creatinine 5.11 4.47 Random Glucose 98 97 Total Protein 8.3 7.1 Calcium Level 13.8 12.5 Magnesium Level 2.3 Sodium Level 141 144 Potassium Level 3.5 3.2 Chloride Level 103 108 Carbon Dioxide Level 24.9 26.2 Anion Gap 13 10 Estimat Glomerular Filtration Rate 11 13 Protein Corrected Calcium 12.9 12.6 Blood Smear Pathologist Review Iron Level 55 Total Iron Binding Capacity 277 Percent Iron Saturation 19.8 Ferritin 962 Vitamin B12 Level 911 Parathyroid Hormone (Intact) 9.7 Differential Total Cells Counted 100 Neutrophils % (Manual) 70 Band Neutrophils % 8 Lymphocytes % 11 Monocytes % 5 Eosinophils % 4 Neutrophils # (Manual) 8.2 Metamyelocytes 2 Platelet Estimate NORMAL Platelet Morphology Comment NORMAL Albumin 3.2 Alkaline Phosphatase 75 Aspartate Amino Transf (AST/SGOT) 11 Alanine Aminotransferase (ALT/SGPT) 21 Total Bilirubin 0.3 (Macarena Smith) Result Diagram: 10/19/1761010/19/17610 Assessment and Plan Problem List: (1) Acute renal failure ICD Codes: N17.9 - Acute kidney failure, unspecified Plan: ARF appears to be related to hypercalcemia causing renal vasospasm as well as polyuria leading to dehydration. May have some degree of CKD. Will try to obtain lab results from his PCP. His hypercalcemia is somewhat concerning given his PMHX of MGUS. Will increase his NS to 125mL/hr and start on Calcitonin to help correct hypercalcemia Will check serological studies (SPEP, SIFE, UIFE, K/L ratio). Depending on these results, may benefit from hematology consultation (was scheduled with Dr. Garcia, but not until November). Check renal US PTHrP pending. iPTH wnl Check Vit D 25-OH and Vit D 1,25-OH levels. Noted eosinophilia on CBC differential. Uncertain significance. Repeat CBC in the AM. Check urine for eosinophils. Hopefully renal functions will improve with hydration and correction of calcium. We will continue to monitor. Medications should be adjusted for the patient's renal decline. Avoid nephrotoxic agents such as iodinated contrast dyes and NSAIDs. Avoid gadolinium. (2) Hypercalcemia ICD Codes: E83.52 - Hypercalcemia Plan: As above. Hold calcium supplement Check Mg level (3) Hypokalemia ICD Codes: E87.6 - Hypokalemia Plan: Repletion as ordered (4) Atrial fibrillation ICD Codes: I48.91 - Unspecified atrial fibrillation Plan: Management as per primary team (5) HTN (hypertension) ICD Codes: I10 - Essential (primary) hypertension Plan: Continue on current anti-hypertensives Add Hydralazine 25mg q8h Will adjust further if needed (6) Symptomatic anemia ICD Codes: D64.9 - Anemia, unspecified Plan: Work up as above. Transfuse for Hgb <7 (Macarena Smith) Assessment and Plan Development of severe anemia, acute renal insufficiency as well as hypercalcemia in the setting of markedly elevated kappa/lambda light chain ratio highly suspicious for multiple myeloma. Continue calcitonin as well as aggressive IV hydration. Consider biphosphonate therapy when renal function improves if required. I would also recommend consultation with hematology/oncology. The exam, history, and the medical decision-making described in the above note were completed with the assistance of the PAMatrha. I reviewed and agree with the findings presented. I attest that I had a [id number] encounter with the patient on the same day, and personally performed and documented my assessment and findings in the medical record. (Juan Ramon Carlson MD) Macarena Smith Oct 19, 2017 11:40 Juan Ramon Carlson MD Oct 19, 2017 15:38
[2017-10-19] MEDS ORDERED: POTASSIUM CHLORIDE 20 MEQ CONTROLLED RELEASE TAB PO ONE (11:45)
[2017-10-19] MEDS ORDERED: FUROSEMIDE 20 MG/2 ML VIAL IV PUSH ONE (12:45)
[2017-10-19] MEDS ORDERED: SODIUM CHLOR 0.9% 250 ML INJ 250 ML IV ONE (12:45)
[2017-10-19 12:57] LABS: BACTERIA, URINE OCC /hpf; BILIRUBIN, URINE NEG (NEG); BLOOD, URINE MOD (NEG); GLUCOSE,URINE NEG (NEG); HYALINE CAST, URINE 2 /lpf (RARE); KETONE, URINE NEG (NEG); MUCUS URINE FEW /lpf (OCC); NITRITE,URINE NEG (NEG); URINE COLOR YELLOW (YELLW/STRAW); URINE LEUKOCYTE ESTERASE LARGE (NEG)
[2017-10-19] MEDS: hydrALAZINE HCL 25 MG TAB PO SCH ×2 (13:19→22:28)
[2017-10-19] MEDS: CALCITONIN SALMON INJ 400 UNITS/2 ML VIAL SQ SCH (14:25)
[2017-10-19 14:30] LABS: CALCIUM 12.2 MG/DL (8.5-10.1); COMPLEMENT C4 42 MG/DL (10-40); IRON (FE) 54 MCG/DL (65-175); KAPPA LIGHT CHAIN 560 MG/DL (170-370); PHOSPHORUS 3.5 MG/DL (2.5-4.9)
[2017-10-19 14:53] LABS: FERRITIN 1017 NG/ML (26-388); IMMUNOGLOBULIN A 20 MG/DL (107-591); IMMUNOGLOBULIN G 1220 MG/DL (690-1690); IMMUNOGLOBULIN M LESS THAN 8 MG/DL (37-225); KAPPA LAMBDA RATIO 43.08 (1.57-3.93); LAMBDA LIGHT CHAIN 13 MG/DL (90-210); TOTAL IRON BINDING CAPACITY 258 MCG/DL (250-450); TOTAL PROTEIN 7.6 GM/DL (6.4-8.2)
[2017-10-19 14:57] LABS: CALCIUM-PROTEIN CORRECTED 11.9 MG/DL (8.5-10.1)
--- NOTE | 2017-10-19 15:15 | EKG ---
Date Performed: 10/18/2017 Time Performed: 12:59:33 PTAGE: 82 years EKG: ATRIAL FLUTTER/TACHYCARDIA INFERIOR MYOCARDIAL INFARCTION Nonspecific ST-T changes ABNORMAL ECG PREVIOUS TRACING : 10/18/2017 12.58 Since previous tracing, the ventricular response to the atr ial flutter is now controlled, otherwise no significant change. DOCTOR: Carson Oseguera Interpretating Date/Time 10/19/2017 15:14:16
--- NOTE | 2017-10-19 20:01 | RADRPT ---
EXAM DATE: 10/19/2017 7:57 PM EDT AGE/SEX: 82 years / Male INDICATIONS: Increased lab values. CLINICAL DATA: This is the patient's subsequent encounter. Patient reports that signs and symptoms h ave been present for 1 day and indicates a pain score of 1/10. MEDICAL/SURGICAL HISTORY: . Hypertension. Carcinoma, colon. Thyroid disease. Arthritis. Blood transfusion. Macular degeneration. . Tonsillectomy.Colon resection. Bilateral hip replacments. Lumba r surgery. Bilateral knee replacement. COMPARISON: [facility] – [place], [place]NEY/RENAL/BLADDER, 04/20/2015. . No external comparison. MEASUREMENTS: Right Kidney:__10.9 x 6.2 x 6.0 cm cm Left Kidney:__10.9 x 5.5 x 6.4 cm cm FINDINGS: Right Kidney: No evidence of mass, stone or hydronephrosis. Left Kidney: No evidence of mass, stone or hydronephrosis. Bladder: Within normal limits given the degree of distension. CONCLUSION: 1. Negative renal sonogram. Electronically signed by: Bayron Boston MD 10/19/2017 8:00 PM EDT
[2017-10-20] VITALS (10 sets, daily range): BP systolic 146–187; BP diastolic 74–86; PULSE 86–93; RESP 18–20; TEMP 97.8–98.2; O2SAT 91–95
[2017-10-20 01:12] LABS: HEMATOCRIT 21.5 % (39.0-51.0); HEMOGLOBIN 7.3 GM/DL (13.0-17.0)
[2017-10-20] MEDS: CALCITONIN SALMON INJ 400 UNITS/2 ML VIAL SQ SCH ×2 (02:16→14:07)
[2017-10-20] MEDS: SODIUM CHLOR 0.9% 1000 ML INJ 1,000 ML IV SCH ×3 (02:17→17:26)
[2017-10-20 04:34] LABS: AUTOMATED NEUTROPHIL # 7.9 TH/MM3 (1.8-7.7); BASOPHIL % 0.3 % (0.0-2.0); EOSINOPHIL # 0.6 TH/MM3 (0-0.4); EOSINOPHIL % 5.6 % (0.0-4.0); HEMATOCRIT 22.2 % (39.0-51.0); HEMOGLOBIN 7.4 GM/DL (13.0-17.0); LYMPH % 9.1 % (9.0-44.0); LYMPHOCYTE # 0.9 TH/MM3 (1.0-4.8); MEAN CELL VOLUME 83.6 FL (80.0-100.0); MEAN CORPUSCULAR HGB CONC 33.5 % (32.0-36.0); MEAN PLATELET VOLUME 7.7 FL (7.0-11.0); MONOCYTE # 0.7 TH/MM3 (0-0.9); PLATELET COUNT 215 TH/MM3 (150-450); RED BLOOD COUNT 2.66 MIL/MM3 (4.50-5.90); RED CELL DISTRIBUTION WIDTH 20.8 % (11.6-17.2); WHITE BLOOD COUNT 10.1 TH/MM3 (4.0-11.0)
[2017-10-20 05:09] LABS: BICARBONATE 23.1 MEQ/L (21.0-32.0); CALCIUM 11.6 MG/DL (8.5-10.1); CREATININE 4.83 MG/DL (0.60-1.30); PHOSPHORUS 3.4 MG/DL (2.5-4.9); TOTAL PROTEIN 6.7 GM/DL (6.4-8.2)
[2017-10-20] MEDS: hydrALAZINE HCL 25 MG TAB PO SCH ×3 (05:48→21:44)
[2017-10-20] MEDS: LEVOTHYROXINE SODIUM 75 MCG TAB PO SCH (05:48)
[2017-10-20] MEDS: SODIUM CHLORIDE 0.9% FLUSH 10 ML FLUSH IV FLUSH SCH ×2 (08:20→19:39)
[2017-10-20] MEDS: CHOLECALCIFEROL (VIT D3) 1000 UNIT TAB PO SCH (08:21)
[2017-10-20] MEDS: DOCUSATE SODIUM 100 MG CAP PO SCH ×2 (08:21→19:39)
[2017-10-20] MEDS: DILTIAZEM-CD 240 MG CAP ER PO SCH (08:21)
[2017-10-20] MEDS: MULTIVITAMIN TAB PO SCH (08:21)
[2017-10-20] MEDS: METOPROLOL TARTRATE 25 MG TAB PO SCH ×2 (08:21→19:39)
[2017-10-20 08:44] LABS: OVALOCYTES 1+ (NORMAL)
--- NOTE | 2017-10-20 09:44 | HHI.PR ---
Subjective Remarks Follow-up visit progressive anemia, on Eliquis secondary to atrial fibrillation and DVT, acute renal failure. Patient seen and examined today. at the bedside. Discussed extensively results of labs, patient medical condition, patient treatment plan. Patient states he is doing okay. States he feels horrible, unable to sleep well last night. As per nursing, no acute issues overnight. Denies SOB/ dyspnea. Denies chest pain, palpitations, headaches, dizziness. Denies fevers, chills, n/v/d. Denies dysuria. Objective Vitals Vital Signs Date Time Temp Pulse Resp B/P (MAP) Pulse Ox O2 Delivery O2 Flow Rate FiO2 10/20/17 08:00 97.8 87 18 187/81 (116) 91 10/20/17 04:00 97.9 90 18 178/79 (112) 94 10/20/17 00:05 97.9 93 18 176/77 (110) 93 10/19/17 19:35 97.5 86 18 161/72 (101) 94 10/19/17 16:46 97.9 78 18 155/70 95 10/19/17 16:46 97.9 78 18 155/70 (98) 95 10/19/17 14:20 98.1 45 20 118/58 95 10/19/17 14:00 98.2 47 18 139/61 95 10/19/17 13:18 122/58 (79) 10/19/17 12:00 97.2 53 18 103/55 (71) 97 I/O 10/19/17 10/19/17 10/19/17 10/20/17 10/20/17 10/20/17 07:00 15:00 23:00 07:00 15:00 23:00 Intake Total 1360 ml 1170 ml 500 ml Output Total 2700 ml 550 ml 2000 ml Balance -1340 ml 620 ml -1500 ml Intake Oral 360 ml 770 ml 500 ml IV Total 1000 ml Packed Cells 400 ml Output Urine Total 2700 ml 550 ml 2000 ml # Voids 2 # Bowel Movements 0 1 Result Diagram: 10/20/17 0405 10/20/17 0405 Imaging Last Impressions Renal Ultrasound 10/19/17 0000 Signed Impressions: CONCLUSION: 1. Negative renal sonogram. Objective Remarks GENERAL: This is a well-nourished, well-developed patient, in no apparent distress. SKIN: Warm and dry. Pale. HEENT: Normocephalic. Pupils equal round and reactive. Nose without bleeding. Airway patent. NECK: Trachea midline. CARDIOVASCULAR: Irregular rate without murmurs, gallops, or rubs. RESPIRATORY: Diminished bases. no wheezes, rales, or rhonchi. GASTROINTESTINAL: Abdomen soft, non-tender, nondistended. Bowel Sounds normoactive x4. : Mathis catheter in place draining yellow urine, clear MUSCULOSKELETAL: Extremities without clubbing, cyanosis. Bilateral lower extremity trace edema. NEUROLOGICAL: Awake and alert. Oriented to person. Normal speech. A/P Problem List: (1) Acute renal failure ICD Code: N17.9 - Acute kidney failure, unspecified (2) Hypercalcemia ICD Code: E83.52 - Hypercalcemia (3) Symptomatic anemia ICD Code: D64.9 - Anemia, unspecified (4) Left leg DVT ICD Code: I82.402 - Acute embolism and thrombosis of unspecified deep veins of left lower extremity (5) Type 2 diabetes mellitus ICD Code: E11.9 - Type 2 diabetes mellitus without complications Status: Acute (6) HTN (hypertension) ICD Code: I10 - Essential (primary) hypertension Assessment and Plan 82-year-old male who came in the hospital secondary to progressive anemia, Hemoglobin 6.9. Acute blood loss anemia History of chronic anemia -Hemoglobin is 6.9 at time of admit -Etiology may be related to Eliquis coupled with renal failure -Eliquis held -Stool for occult blood negative -Blood transfusion x2 yesterday, H/H remained 7.4/22.2 -We will repeat blood transfusion today 1, monitor H&H -Consult hematology appreciate recommendation Acute renal failure Etiology uncertain -nephrology consulted, appreciate recommendation -IV hydration -Follow renal function. Nephrology ordered, nephrology workup -Avoid nephrotoxins -Renal ultrasound is negative Hypercalcemia -IV hydration -Follow calcium level -Parathyroid hormone levels PTH intact 9.7 -Nephrology recommends vitamin D3 and calcitonin Hypertension, uncontrolled -Adjust treatments as needed -Continue metoprolol, increased to 25 mg with holding parameters -Continue diltiazem, 240 mg twice daily will decrease to 240 mg daily as he was DCd with 240mg daily Atrial fibrillation Left lower extremity DVT -Eliquis has to be stopped secondary to severe anemia -Follow on telemetry -Continue metoprolol -Continue diltiazem Hypothyroidism -Continue baseline supplement -TSH within normal Hx colon cancer History of monoclonal gammopathy (MGUS) Chronic anemia -MGUS Could be contributory -Consulted hematology, previously followed by Dr. Byrne -Negative stool for occult blood DVT prophylaxis SCDs, chemoprophylaxis held secondary to anemia suspicion of bleed Discharge Planning Plan to DC home when clinically improved Venecia Rutledge Oct 20, 2017 09:44
[2017-10-20] MEDS ORDERED: SODIUM CHLOR 0.9% 250 ML INJ 250 ML IV ONE (10:00)
[2017-10-20] MEDS ORDERED: FUROSEMIDE 20 MG/2 ML VIAL IV PUSH ONE (10:00)
[2017-10-20] MEDS: cloNIDine HCL 0.1 MG TAB PO PRN ×2 (10:49→17:24)
--- NOTE | 2017-10-20 14:12 | MB ---
cc: Chandler Love MD DATE: 10/19/2017 REASON FOR CONSULTATION: The patient with anemia, hypercalcemia, and acute renal failure. HISTORY OF PRESENT ILLNESS: This is an 82-year-old male who has multiple medical problems. He is somewhat of a poor historian. He has been diagnosed with anemia, chronic kidney disease, atrial fibrillation with left lower extremity deep venous thrombosis, chronically on Eliquis, hypothyroidism and history of colon cancer. He has undergone colon resection many years ago. The patient was being followed by hematology for history of monoclonal gammopathy. He now presents to the emergency room with progressive dyspnea and was found to have low hemoglobin of 6.9. He was transfused packed red blood cells and GI was consulted to rule out any GI sources of anemia. The patient has also been evaluated by nephrology for hypercalcemia and renal dysfunction. The patient has a history of bilateral knee replacement and bilateral hip replacement. He underwent left femur ORIF a few months ago. REVIEW OF SYSTEMS: A comprehensive review of system was completed which is negative, except as described in HPI. PAST MEDICAL HISTORY: MGUS, hypertension, chronic kidney disease, hypothyroidism, colon cancer, anemia. PAST SURGICAL HISTORY: Colon cancer resection, laminectomy, hip surgeries, knee surgeries. FAMILY HISTORY: Reviewed and his sister has a history of colon cancer. SOCIAL HISTORY: He used to smoke a pipe, but he quit. No alcohol abuse. No drug abuse. He lives with his . MEDICATIONS: 1. Cardizem 240 p.o. daily. 2. Metoprolol 25 mg p.o. b.i.d. 3. Calcitonin. 4. Hydralazine 20 mg p.o. q. 8 hours. 5. Multivitamins. 6. Levothyroxine 75 mcg p.o. daily. 7. Docusate 100 mg p.o. b.i.d. 8. Clonidine 0.1 mg p.o. q. 6 hours p.r.n. 9. Zofran 4 mg p.o. q. 6 hours p.r.n. 10. Morphine 2 mg IV every 3 hours p.r.n. ALLERGIES: NO KNOWN DRUG ALLERGIES. PHYSICAL EXAMINATION: VITAL SIGNS: Blood pressure is 181/85, pulse is in the 80s. Temperature is 97.8. O2 saturations are 91% on room air. GENERAL: Elderly male who does not appear to be in any distress. HEENT: Pupils are equal, round, reactive to light. EOMI. No oral thrush or lesions. NECK: Supple. No JVD. No bruits. No lymphadenopathy. CHEST: Clear to auscultation bilaterally. CARDIAC: S1, S2. Regular rate and rhythm. ABDOMEN: Distended due to obesity. Bowel sounds are present. EXTREMITIES: Without any edema or cyanosis. SKIN: Without petechia, lesions, or bruises. NEUROLOGIC: No focal deficits. PSYCHIATRIC: Mood and affect appropriate. LABORATORY DATA: WBC 10.2, hemoglobin 7.2, platelet count 240. Serum chemistry shows sodium of 144, potassium 3.2, CO2 26.2, creatinine 4.47, calcium 12.5, AST is 11, ALT 21, alkaline phosphatase 75, albumin is 3.2. TSH is 2.7. IMAGING: Renal ultrasound was reviewed and is negative for any acute abnormalities. ASSESSMENT AND PLAN: This is an 82-year-old male who has a past medical history of monoclonal gammopathy of undetermined significance, anemia, chronic kidney disease, history of deep venous thrombosis chronically on Eliquis, who presents to the emergency department with progressive anemia. 1. Progressive anemia with low hemoglobin of 6.9/hypercalcemia and worsening kidney functions in the setting of past history of monoclonal gammopathy of undetermined significance and underlying plasma cell dyscrasia is suspected. We will need to complete paraproteinemia workup in addition to serum protein electrophoresis. Will obtain a serum CASSIE, 24-hour urine protein electrophoresis and urine CASSIE, kappa lambda ratio, free light chains, beta 2 microglobulin, LDH. We will also obtain a skeletal survey. I had a discussion regarding this workup with the patient. I explained to him that we may also need to obtain a bone marrow biopsy. I agree with GI workup to rule out any GI sources of anemia. Agree with calcitonin and IV fluids to control hypercalcemia. Obtain anemia studies. 2. Uncontrolled hypertension. Achieve better control of blood pressure. 3. Atrial fibrillation and history of left lower extremity deep venous thrombosis. Continue Eliquis. 4. History of hypothyroidism. 5. History of colon cancer, status post resection. Thank you for allowing me to participate in the care of this patient. I will continue to follow the patient along. MD CASIE Bowers/TL , 11:56 AM , 02:11 PM
--- NOTE | 2017-10-20 16:29 | HHI.NPPN ---
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 He has been having some fatigue and weakness over the past few weeks and a CBC showed a Hgb of 7.2 prompting evaluation at the hospital. The patient's is the primary historian. Was admitted here in Jun for a L femur fx that he sustained at home while turning while moving TV tray causing a twist and fall type injury on his left leg. reports spiral fracture of his left femur that he underwent ORIF. He subsequently developed a DVT in the same leg. Renal functions during that admission were overall normal with SCr at 0.8 baseline. Serum calcium normal at this admission at 8.6-9.0. In August, he developed A fib with RVR and had acute renal insufficiency though nephrology services were not called as his functions improved with correction of RVR (admitting SCr 2.40 on 08/29 and discharge on 09/01 at 1.74). Noted mild hypercalcemia during this admission at 10.7. 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 Byrne, but was many years ago as per the . Says that he never underwent bone marrow bx, but had multiple labs that "didn't change" so they opted to stop following up. Given his recent anemia, his PCP did refer him to Dr. Jordyn Garcia, but appointment not until November. No known CKD hx. Denies any recent NVD No NSAID use No recent abx. Besides the aforementioned health history as of recent, he has been in his usual state of health as per his . Has been on Calcium 600mg with 500IU Vitamin D, with an additional Vitamin D3 1000IU daily since his femur fx. Admitting SCr 2.11 that has improved to 4.47 at consult. Serum CCa 12.9 at admission Interval History Patient lying comfortably in bed. No verbal complaints. Review of Systems General Constitutional: Fatigue Objective Data Data 10/20/17 10/21/17 18:59 06:59 Intake Total 900 ml Balance 900 ml IV Total 500 ml Packed Cells 400 ml Vital Signs Date Time Temp Pulse Resp B/P (MAP) Pulse Ox O2 Delivery O2 Flow Rate FiO2 10/20/17 13:59 98.2 88 18 177/84 95 10/20/17 11:36 97.8 89 18 146/74 (98) 94 10/20/17 11:08 97.8 89 18 146/74 94 10/20/17 10:46 98.0 86 20 181/85 94 10/20/17 08:00 97.8 87 18 187/81 (116) 91 10/20/17 04:00 97.9 90 18 178/79 (112) 94 10/20/17 00:05 97.9 93 18 176/77 (110) 93 10/19/17 19:35 97.5 86 18 161/72 (101) 94 10/19/17 16:46 97.9 78 18 155/70 95 10/19/17 16:46 97.9 78 18 155/70 (98) 95 -: 10/20/17 0405 10/20/17 0405 Physical Exam General Appearance: Well Developed, Well Nourished, No Acute Distress, Comfortable Eyes Eye Exam: Sclera White Pulmonary Resp Exam: Clear Bilaterally, Breath Sounds Equal, No Distress Cardiology CV Exam: Regular, Normal Sinus Rhythm Neurologic Neuro Exam: Awake, Speech Clear, Moving All Extremities Assessment/Plan Discussed Condition With: Patient Problem List: (1) Acute renal failure ICD Codes: N17.9 - Acute kidney failure, unspecified Plan: ARF appears to be related to hypercalcemia causing renal vasospasm as well as polyuria leading to dehydration. May have some degree of CKD. [place]/Lambda light chain kappa light chain level elevated. Hematology consultation reviewed. Requested nurse contact director of medical staff services as some of the studies ordered by hematology have already been ordered and some resulted. Skeletal survey apparently will be done today. Continue IV hydration with saline which appears to be tolerated so far as well as calcitonin. Consideration may be given to biphosphonate if the calcium level does not improve significantly but will defer to hematology in this regard. We will continue to monitor. Medications should be adjusted for the patient's renal decline. Avoid nephrotoxic agents such as iodinated contrast dyes and NSAIDs. Avoid gadolinium. (2) Hypercalcemia ICD Codes: E83.52 - Hypercalcemia Plan: As above. Hold calcium supplement Check Mg level (3) Hypokalemia ICD Codes: E87.6 - Hypokalemia Plan: Repletion as ordered (4) Atrial fibrillation ICD Codes: I48.91 - Unspecified atrial fibrillation Plan: Management as per primary team (5) HTN (hypertension) ICD Codes: I10 - Essential (primary) hypertension Plan: Continue on current anti-hypertensives Add Hydralazine 25mg q8h Will adjust further if needed Juan Ramon Carlson MD Oct 20, 2017 16:29
[2017-10-20] MEDS ORDERED: POTASSIUM CHLORIDE 20 MEQ CONTROLLED RELEASE TAB PO ONE (16:30)
--- NOTE | 2017-10-20 17:53 | RADRPT ---
EXAM DATE: 10/20/2017 5:28 PM EDT AGE/SEX: 82 years / Male INDICATIONS: Evaluate for myeloma, MGUS, anemia/ZOFIA/hypercalcemia. CLINICAL DATA: This is the patient's initial encounter. Patient reports that signs and symptoms have been present for 1 day and indicates a pain score of 10/10. MEDICAL/SURGICAL HISTORY: Hypertension. Carcinoma, colon. Arthritis. Thyroid disease. Macula r degeneration. . Bilateral hip replacements. Lumbar surgery. Bilateral knee replacements. Tonsillec azucena. Colon resection. COMPARISON: [facility] [place] FEMUR [place] W/O CONTRAST, 06/24/2017. [facility] [place], FEMUR LEFT (AP & LAT/2VWS), 08/30/19 18. . FINDINGS: Diffuse calvarial heterogeneity without a distinct lesion. Similar findings are seen of the spine and bony pelvis. In the long bones, there is heterogeneous but mostly lucent attenuation involving the m edullary spaces and with associated cortical scalloping and thinning. These findings are most conspic uous in the proximal shaft regions of the right tibia but also involves the left tibia, both femoral and to a lesser extent, the bilateral humerus, radius and ulna. The fibula also appear considerably i nvolved, especially the right. No radiographic evidence of a pathologic fracture. Degenerative changes are seen throughout the spine . Patient has had previous bilateral bipolar hip arthroplasty. Also previous bilateral total knee art hroplasties. No evidence of hardware failure or loosening. CONCLUSION: Ill-defined lucencies and patchy cortical thinning of multiple bones, primarily the long bones and es pecially the right tibia and fibula. Extensive multiple myeloma could certainly have this appearance in the proper clinical setting. Electronically signed by: Armando Wan MD 10/20/2017 5:51 PM EDT
[2017-10-20] MEDS ORDERED: APIXABAN 5 MG TABLET PO SCH (21:00)
[2017-10-21] VITALS (9 sets, daily range): BP systolic 147–189; BP diastolic 75–84; PULSE 73–94; RESP 17–21; TEMP 97.6–98.6; O2SAT 92–96
[2017-10-21] MEDS: SODIUM CHLOR 0.9% 1000 ML INJ 1,000 ML IV SCH ×4 (00:45→21:54)
[2017-10-21] MEDS: CALCITONIN SALMON INJ 400 UNITS/2 ML VIAL SQ SCH (00:45)
[2017-10-21] MEDS: cloNIDine HCL 0.1 MG TAB PO PRN ×2 (01:20→15:54)
[2017-10-21] MEDS: LEVOTHYROXINE SODIUM 75 MCG TAB PO SCH (06:11)
[2017-10-21] MEDS: hydrALAZINE HCL 25 MG TAB PO SCH ×3 (06:11→21:53)
[2017-10-21] MEDS: MULTIVITAMIN TAB PO SCH (08:16)
[2017-10-21] MEDS: DOCUSATE SODIUM 100 MG CAP PO SCH ×2 (08:16→21:00)
[2017-10-21] MEDS: CHOLECALCIFEROL (VIT D3) 1000 UNIT TAB PO SCH (08:16)
[2017-10-21] MEDS: SODIUM CHLORIDE 0.9% FLUSH 10 ML FLUSH IV FLUSH SCH ×2 (08:16→21:00)
[2017-10-21] MEDS: DILTIAZEM-CD 240 MG CAP ER PO SCH (08:16)
[2017-10-21] MEDS: METOPROLOL TARTRATE 25 MG TAB PO SCH ×2 (08:16→21:07)
[2017-10-21] MEDS: MAGNESIUM HYDROXIDE SUSP 30 ML CUP PO PRN (08:17)
[2017-10-21 12:02] LABS: HEMATOCRIT 28.2 % (39.0-51.0); HEMOGLOBIN 9.4 GM/DL (13.0-17.0); MEAN CELL VOLUME 84.9 FL (80.0-100.0); MEAN CORPUSCULAR HEMOGLOBIN 28.2 PG (27.0-34.0); MEAN CORPUSCULAR HGB CONC 33.2 % (32.0-36.0); MEAN PLATELET VOLUME 7.6 FL (7.0-11.0); PLATELET COUNT 221 TH/MM3 (150-450); RED BLOOD COUNT 3.32 MIL/MM3 (4.50-5.90); RED CELL DISTRIBUTION WIDTH 19.1 % (11.6-17.2)
[2017-10-21 12:37] LABS: ALBUMIN 3.3 GM/DL (3.4-5.0); BICARBONATE 19.4 MEQ/L (21.0-32.0); CALCIUM 11.9 MG/DL (8.5-10.1); CREATININE 4.79 MG/DL (0.60-1.30); PHOSPHORUS 3.7 MG/DL (2.5-4.9); TOTAL PROTEIN 7.4 GM/DL (6.4-8.2)
[2017-10-21 13:11] LABS: CALCIUM-PROTEIN CORRECTED 11.8 MG/DL (8.5-10.1)
[2017-10-21] MEDS ORDERED: FUROSEMIDE 40 MG/4 ML VIAL IV PUSH ONE (13:45)
--- NOTE | 2017-10-21 13:47 | HHI.FF ---
Face to Face Verification Diagnosis: (1) Acute renal failure Physical Therapy Order: Evaluate and Treat Home Health Nursing Order: Medication education-adverse effect Nursing assessment with vital signs I have seen patient Ant Mcintosh on 10/21/17. My clinical findings support the need for the requested home health care services because: Ltd mobility - disease progression I certify that my clinical findings support that this patient is homebound because: Unsteady gait/balance Unsafe to leave home unassisted Jackie Gresham MD Oct 21, 2017 13:47
--- NOTE | 2017-10-21 13:57 | HHI.PR ---
Subjective Remarks doing OK. no pain, had 3 Bowel movements. Did not see black or bloody stools. no abdominal pain. Feels like he has more energy today. Objective Vitals Vital Signs Date Time Temp Pulse Resp B/P (MAP) Pulse Ox O2 Delivery O2 Flow Rate FiO2 10/21/17 12:00 97.7 73 21 154/75 (101) 93 10/21/17 08:00 98.6 87 21 161/77 (105) 92 10/21/17 04:00 97.7 86 18 168/79 (108) 93 10/21/17 00:00 98.4 94 18 189/81 (117) 93 10/20/17 20:00 86 10/20/17 19:45 98.1 86 18 176/78 (110) 95 10/20/17 16:00 98.2 86 20 170/86 (114) 93 10/20/17 13:59 98.2 88 18 177/84 95 I/O 10/20/17 10/20/17 10/20/17 10/21/17 10/21/17 10/21/17 07:00 15:00 23:00 07:00 15:00 23:00 Intake Total 500 ml 900 ml 930 ml 1240 ml Output Total 2000 ml 2650 ml 1800 ml Balance -1500 ml 900 ml -1720 ml -560 ml Intake Oral 500 ml 930 ml 840 ml IV Total 500 ml Packed Cells 400 ml 400 ml Output Urine Total 2000 ml 2650 ml 1800 ml # Bowel Movements 0 Result Diagram: 10/21/17 1143 10/21/17 1143 Other Results Item Value Date Time Calcium Level 11.9 MG/DL *H 10/21/17 1143 Protein Corrected Calcium 11.8 MG/DL *H 10/21/17 1143 Phosphorus Level 3.7 MG/DL 10/21/17 1143 Albumin 3.3 GM/DL L 10/21/17 1143 Complement C3 142 MG/DL 10/19/17 1320 Complement C4 42 MG/DL H 10/19/17 1320 [place] Light Chain Analysis 560 MG/DL H 10/19/17 1320 Lambda Light Chain Analysis 13 MG/DL L 10/19/17 1320 Objective Remarks GENERAL: This is a well-nourished, well-developed patient, in no apparent distress. CARDIOVASCULAR: Regular rate and rhythm RESPIRATORY: Clear to auscultation. Breath sounds equal bilaterally. No wheezes , rales, or rhonchi. GASTROINTESTINAL: Abdomen soft, non-tender, nondistended. Normal active bowel sounds MUSCULOSKELETAL: Extremities without clubbing, cyanosis, trace edema NEURO: Alert & Oriented x3 to person, place, time. Moves all ext x4 A/P Problem List: (1) Acute renal failure ICD Code: N17.9 - Acute kidney failure, unspecified Status: Acute (2) Hypercalcemia ICD Code: E83.52 - Hypercalcemia Status: Acute (3) Symptomatic anemia ICD Code: D64.9 - Anemia, unspecified Status: Acute (4) Left leg DVT ICD Code: I82.402 - Acute embolism and thrombosis of unspecified deep veins of left lower extremity Status: Chronic (5) Type 2 diabetes mellitus ICD Code: E11.9 - Type 2 diabetes mellitus without complications Status: Acute (6) HTN (hypertension) ICD Code: I10 - Essential (primary) hypertension Status: Chronic Assessment and Plan 82-year-old male who came in the hospital secondary to progressive anemia, Hemoglobin 6.9. Acute blood loss anemia History of chronic anemia -Hemoglobin is 6.9 at time of admit -Etiology may be related to Eliquis coupled with renal failure -Eliquis held -Stool for occult blood negative -Blood transfusion x 3 with hemoglobin at 9.4 -Consult hematology appreciate recommendation Acute renal failure Etiology uncertain -nephrology consulted, appreciate recommendation -IV hydration -Follow renal function. Nephrology ordered, nephrology workup in progress -Avoid nephrotoxins -Renal ultrasound is negative Hypercalcemia -IV hydration -Follow calcium level -Parathyroid hormone levels PTH intact 9.7 -Nephrology recommends vitamin D3 and calcitonin Give dose of Lasix 40 IV 1 Hypertension, essential, chronic uncontrolled -Adjust treatments as needed -Continue metoprolol, increased to 25 mg with holding parameters -Continue diltiazem, 240 mg daily; may need to consider amlodipine if continue to be uncontrolled. Atrial fibrillation -rate controlled Left lower extremity DVT -Eliquis has to be stopped secondary to severe anemia -Follow on telemetry -Continue metoprolol -Continue diltiazem Consideration for warfarin due to acute renal failure when anemia improving GI bleed is ruled out. Hypothyroidism -Continue baseline supplement -TSH within normal Hx colon cancer History of monoclonal gammopathy (MGUS) Chronic anemia -MGUS Could be contributory -Consulted hematology, previously followed by Dr. Byrne -Negative stool for occult blood Workup in progress and can be exacerbated by acute renal failure DVT prophylaxis SCDs, chemoprophylaxis held secondary to anemia suspicion of bleed Discharge Planning Home health care upon discharge to home Jackie Gresham MD Oct 21, 2017 13:57
--- NOTE | 2017-10-21 19:09 | HHI.NPPN ---
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 He has been having some fatigue and weakness over the past few weeks and a CBC showed a Hgb of 7.2 prompting evaluation at the hospital. The patient's is the primary historian. Was admitted here in Jun for a L femur fx that he sustained at home while turning while moving TV tray causing a twist and fall type injury on his left leg. reports spiral fracture of his left femur that he underwent ORIF. He subsequently developed a DVT in the same leg. Renal functions during that admission were overall normal with SCr at 0.8 baseline. Serum calcium normal at this admission at 8.6-9.0. In August, he developed A fib with RVR and had acute renal insufficiency though nephrology services were not called as his functions improved with correction of RVR (admitting SCr 2.40 on 08/29 and discharge on 09/01 at 1.74). Noted mild hypercalcemia during this admission at 10.7. 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 Byrne, but was many years ago as per the . Says that he never underwent bone marrow bx, but had multiple labs that "didn't change" so they opted to stop following up. Given his recent anemia, his PCP did refer him to Dr. Jordyn Garcia, but appointment not until November. No known CKD hx. Denies any recent NVD No NSAID use No recent abx. Besides the aforementioned health history as of recent, he has been in his usual state of health as per his . Has been on Calcium 600mg with 500IU Vitamin D, with an additional Vitamin D3 1000IU daily since his femur fx. Admitting SCr 2.11 that has improved to 4.47 at consult. Serum CCa 12.9 at admission Interval History Pt reports he is feeling much better today Some diarrhea this AM that he attributes to milk of magnesia UOP brisk (Macarena Smith) Review of Systems General Constitutional: Fatigue (Macarena Smith) Objective Data Data 10/21/17 10/22/17 19:00 07:00 Intake Total 2679 ml Output Total 2400 ml Balance 279 ml Intake Oral 780 ml IV Total 1899 ml Output Urine Total 2400 ml # Bowel Movements 3 Vital Signs Date Time Temp Pulse Resp B/P (MAP) Pulse Ox O2 Delivery O2 Flow Rate FiO2 10/21/17 18:46 97.6 91 19 147/77 (100) 95 10/21/17 16:00 97.6 85 20 169/84 (112) 96 10/21/17 16:00 85 10/21/17 15:51 97.6 88 17 169/84 (112) 96 10/21/17 12:00 97.7 73 21 154/75 (101) 93 10/21/17 08:00 98.6 87 21 161/77 (105) 92 10/21/17 04:00 97.7 86 18 168/79 (108) 93 10/21/17 00:00 98.4 94 18 189/81 (117) 93 10/20/17 20:00 86 10/20/17 19:45 98.1 86 18 176/78 (110) 95 (Macarena Smith) -: 10/21/17 1143 10/21/17 1143 Imaging Last Impressions Bone Osseous Survey 10/20/17 0000 Signed Impressions: CONCLUSION: Ill-defined lucencies and patchy cortical thinning of multiple bones, primarily the long bones and especially the right tibia and fibula. Extensive multiple m yeloma could certainly have this appearance in the proper clinical setting. Renal Ultrasound 10/19/17 0000 Signed Impressions: CONCLUSION: 1. Negative renal sonogram. Medication Review Current Medications Medications (Trade) Dose Ordered Sig/Reggie Route Start Time Stop Time Status Last Admin (NS Flush) 2 ml UNSCH PRN IV FLUSH 10/18/17 14:15 (NS Flush) 2 ml BID IV FLUSH 10/18/17 21:00 10/21/17 08:16 (Zofran Odt) 4 mg Q6H PRN PO 10/18/17 14:45 (Morphine Inj) 2 mg Q3H PRN IV 10/18/17 14:45 (Morphine Inj) 4 mg Q3H PRN IV 10/18/17 14:45 (Narcan Inj) 0.4 mg UNSCH PRN IV PUSH 10/18/17 14:15 (Milk Of Magnesia Liq) 30 ml Q12H PRN PO 10/18/17 14:15 10/21/17 08:17 (Vitamin D3) 2,000 units DAILY PO 10/19/17 09:00 10/21/17 08:16 (Synthroid) 75 mcg DAILY@0600 PO 10/19/17 06:00 10/21/17 06:11 (Theragran) 1 tab DAILY PO 10/19/17 09:00 10/21/17 08:16 (Pill Splitter) 1 ea UNSCH PRN OTHER 10/18/17 15:45 (Colace) 100 mg BID PO 10/18/17 21:00 10/21/17 08:16 (Catapres) 0.1 mg Q6H PRN PO 10/18/17 18:30 10/21/17 15:54 (Lopressor) 25 mg BID PO 10/19/17 21:00 10/21/17 08:16 Sodium Chloride 1,000 ml @ 125 mls/hr Q8H IV 10/19/17 10:00 10/21/17 14:01 (Cardizem Cd) 240 mg DAILY PO 10/20/17 09:00 10/21/17 08:16 (Apresoline) 25 mg Q8HR PO 10/19/17 14:00 10/21/17 11:22 (Macarena Smith) Physical Exam General Appearance: Well Developed, Well Nourished, No Acute Distress, Comfortable (Macarena Smith) Eyes Eye Exam: Sclera White (Macarena Smith) Pulmonary Resp Exam: Clear Bilaterally, Breath Sounds Equal, No Distress (Macarena Smith) Cardiology CV Exam: Regular, Normal Sinus Rhythm (Macarena Smith) Neurologic Neuro Exam: Awake, Speech Clear, Moving All Extremities (Macarena Smith) Assessment/Plan Discussed Condition With: Patient Problem List: (1) Acute renal failure ICD Codes: N17.9 - Acute kidney failure, unspecified Status: Acute Plan: ARF appears to be related to hypercalcemia causing renal vasospasm as well as polyuria leading to dehydration. May have some degree of CKD. Renal functions not improving as of yet. UOP brisk. Is developing acidosis, so will start on bicarb Labs concerning for plasma cell dyscrasia although majority of labs still not finalized. Skeletal survey indicating potential long bone lesions. Await heme/onco opinion CCa still elevated, but coming down slowly. Continue aggressive IV hydration Would recommend holding Lasix as this does not actually aid in lowering calcium , but is given to help prevent fluid overload with hydration. Mainstay of hypercalcemia management is aggressive hydration. Consideration may be given to biphosphonate if the calcium level does not improve significantly but will defer to hematology in this regard. We will continue to monitor. Medications should be adjusted for the patient's renal decline. Avoid nephrotoxic agents such as iodinated contrast dyes and NSAIDs. Avoid gadolinium. (2) Hypercalcemia ICD Codes: E83.52 - Hypercalcemia Status: Acute Plan: As above. (3) Hypokalemia ICD Codes: E87.6 - Hypokalemia Plan: Repletion as ordered (4) Atrial fibrillation ICD Codes: I48.91 - Unspecified atrial fibrillation Plan: Management as per primary team (5) HTN (hypertension) ICD Codes: I10 - Essential (primary) hypertension Status: Chronic Plan: Increase Hydralazine to 50mg q8h (Macarena Smith) Plan The exam, history, and the medical decision-making described in the above note were completed with the assistance of the YULY. I reviewed and agree with the findings presented. (Juan Ramon Carlson MD) Macarena Smith Oct 21, 2017 19:09 Juan Ramon Carlson MD Oct 22, 2017 11:57
[2017-10-21] MEDS ORDERED: POTASSIUM CHLORIDE 10 MEQ CONTROLLED RELEASE TAB PO ONE (19:15)
[2017-10-21] MEDS: SODIUM BICARBONATE 650 MG TAB PO SCH (21:53)
[2017-10-22 00:15] VITALS: BP 165/74; PULSE 89; RESP 18; TEMP 98.9; O2SAT 93
[2017-10-22] MEDS: SODIUM CHLOR 0.9% 1000 ML INJ 1,000 ML IV SCH ×3 (02:42→15:33)
[2017-10-22 04:10] VITALS: BP 166/78; PULSE 93; RESP 18; TEMP 98; O2SAT 92
[2017-10-22 05:15] LABS: AUTOMATED NEUTROPHIL # 6.3 TH/MM3 (1.8-7.7); BASOPHIL % 0.2 % (0.0-2.0); EOSINOPHIL # 0.6 TH/MM3 (0-0.4); EOSINOPHIL % 7.4 % (0.0-4.0); HEMOGLOBIN 8.6 GM/DL (13.0-17.0); LYMPH % 8.8 % (9.0-44.0); LYMPHOCYTE # 0.7 TH/MM3 (1.0-4.8); MEAN CELL VOLUME 85.9 FL (80.0-100.0); MEAN CORPUSCULAR HEMOGLOBIN 29.4 PG (27.0-34.0); MEAN CORPUSCULAR HGB CONC 34.2 % (32.0-36.0); MEAN PLATELET VOLUME 7.9 FL (7.0-11.0); MONO % 7.1 % (0.0-8.0); MONOCYTE # 0.6 TH/MM3 (0-0.9); NEUT % 76.5 % (16.0-70.0); PLATELET COUNT 186 TH/MM3 (150-450); RED BLOOD COUNT 2.91 MIL/MM3 (4.50-5.90); RED CELL DISTRIBUTION WIDTH 18.8 % (11.6-17.2); WHITE BLOOD COUNT 8.2 TH/MM3 (4.0-11.0)
[2017-10-22 05:52] LABS: CALCIUM 11.4 MG/DL (8.5-10.1); CREATININE 4.58 MG/DL (0.60-1.30)
[2017-10-22 05:55] LABS: TOTAL PROTEIN 6.4 GM/DL (6.4-8.2)
[2017-10-22] MEDS: SODIUM BICARBONATE 650 MG TAB PO SCH ×3 (06:39→22:04)
[2017-10-22] MEDS: LEVOTHYROXINE SODIUM 75 MCG TAB PO SCH (06:39)
[2017-10-22] MEDS ORDERED: FUROSEMIDE 40 MG/4 ML VIAL IV PUSH ONE (07:30)
[2017-10-22] MEDS ORDERED: POTASSIUM CHLORIDE 20 MEQ CONTROLLED RELEASE TAB PO ONE (07:30)
[2017-10-22] MEDS: DOCUSATE SODIUM 100 MG CAP PO SCH ×2 (07:43→20:47)
[2017-10-22 07:45] LABS: OVALOCYTES 1+ (NORMAL)
[2017-10-22 08:00] VITALS: BP 166/78; PULSE 100; PULSE 90; RESP 20; TEMP 99.2; O2SAT 92
[2017-10-22] MEDS ORDERED: FUROSEMIDE 40 MG/4 ML VIAL ONE (08:44)
[2017-10-22] MEDS: METOPROLOL TARTRATE 25 MG TAB PO SCH ×2 (08:45→20:47)
[2017-10-22] MEDS: DILTIAZEM-CD 240 MG CAP ER PO SCH (08:45)
[2017-10-22] MEDS: CHOLECALCIFEROL (VIT D3) 1000 UNIT TAB PO SCH (08:45)
[2017-10-22] MEDS: SODIUM CHLORIDE 0.9% FLUSH 10 ML FLUSH IV FLUSH SCH ×2 (08:45→20:47)
[2017-10-22] MEDS: MULTIVITAMIN TAB PO SCH (08:45)
[2017-10-22] MEDS: hydrALAZINE HCL 25 MG TAB PO SCH ×3 (08:47→22:04)
[2017-10-22 12:00] VITALS: BP 139/64; PULSE 83; RESP 21; TEMP 97.3; O2SAT 93
--- NOTE | 2017-10-22 12:00 | HHI.NPPN ---
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 He has been having some fatigue and weakness over the past few weeks and a CBC showed a Hgb of 7.2 prompting evaluation at the hospital. The patient's is the primary historian. Was admitted here in Jun for a L femur fx that he sustained at home while turning while moving TV tray causing a twist and fall type injury on his left leg. reports spiral fracture of his left femur that he underwent ORIF. He subsequently developed a DVT in the same leg. Renal functions during that admission were overall normal with SCr at 0.8 baseline. Serum calcium normal at this admission at 8.6-9.0. In August, he developed A fib with RVR and had acute renal insufficiency though nephrology services were not called as his functions improved with correction of RVR (admitting SCr 2.40 on 08/29 and discharge on 09/01 at 1.74). Noted mild hypercalcemia during this admission at 10.7. 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 Byrne, but was many years ago as per the . Says that he never underwent bone marrow bx, but had multiple labs that "didn't change" so they opted to stop following up. Given his recent anemia, his PCP did refer him to Dr. Jordyn Garcia, but appointment not until November. No known CKD hx. Denies any recent NVD No NSAID use No recent abx. Besides the aforementioned health history as of recent, he has been in his usual state of health as per his . Has been on Calcium 600mg with 500IU Vitamin D, with an additional Vitamin D3 1000IU daily since his femur fx. Admitting SCr 2.11 that has improved to 4.47 at consult. Serum CCa 12.9 at admission Interval History Patient sitting in a chair. No verbal complaints. is visiting. Review of Systems General Constitutional: Fatigue Objective Data Data Vital Signs Date Time Temp Pulse Resp B/P (MAP) Pulse Ox O2 Delivery O2 Flow Rate FiO2 10/22/17 08:00 99.2 90 20 166/78 (107) 92 10/22/17 04:10 98.0 93 18 166/78 (107) 92 10/22/17 00:15 98.9 89 18 165/74 (104) 93 10/21/17 23:52 90 10/21/17 20:48 85 10/21/17 18:46 97.6 91 19 147/77 (100) 95 10/21/17 16:00 97.6 85 20 169/84 (112) 96 10/21/17 16:00 85 10/21/17 15:51 97.6 88 17 169/84 (112) 96 10/21/17 12:00 97.7 73 21 154/75 (101) 93 -: 10/22/17 0358 10/22/17 0358 Physical Exam General Appearance: Well Developed, Well Nourished, No Acute Distress, Comfortable Eyes Eye Exam: Sclera White Pulmonary Resp Exam: Clear Bilaterally, Breath Sounds Equal, No Distress Cardiology CV Exam: Regular, Normal Sinus Rhythm Neurologic Neuro Exam: Awake, Speech Clear, Moving All Extremities Assessment/Plan Discussed Condition With: Patient Problem List: (1) Acute renal failure ICD Codes: N17.9 - Acute kidney failure, unspecified Status: Acute Plan: Patient's creatinine level has only marginally improved with aggressive IV hydration. I suspect that the patient may have intrinsic kidney disease related to probable multiple myeloma. Awaiting further input from hematology/ oncology. I discussed with the patient's the current status of the patient's renal function. Currently his GFR does remain below 15 although there is no acute indication to initiate dialysis currently the severity of his azotemia was explained to his .. Labs and skeletal survey concerning for plasma cell dyscrasia although labs still not finalized. Await heme/onco opinion regarding a possible bone marrow for definitive diagnosis. Consideration may be given to biphosphonate if the calcium level does not improve significantly but will defer to hematology in this regard. We will continue to monitor. Medications should be adjusted for the patient's renal decline. Avoid nephrotoxic agents such as iodinated contrast dyes and NSAIDs. Avoid gadolinium. (2) Hypercalcemia ICD Codes: E83.52 - Hypercalcemia Status: Acute Plan: As above. (3) Hypokalemia ICD Codes: E87.6 - Hypokalemia Plan: Repletion as ordered (4) Atrial fibrillation ICD Codes: I48.91 - Unspecified atrial fibrillation Plan: Management as per primary team (5) HTN (hypertension) ICD Codes: I10 - Essential (primary) hypertension Status: Chronic Plan: Increase Hydralazine to 50mg q8h Plan The exam, history, and the medical decision-making described in the above note were completed with the assistance of the YULY. I reviewed and agree with the findings presented. Juan Ramon Carlson MD Oct 22, 2017 12:00
--- NOTE | 2017-10-22 13:24 | HHI.PR ---
Subjective Remarks Patient doing okay. No other concerns at this time. Overall no active pain at this time. Objective Vitals Vital Signs Date Time Temp Pulse Resp B/P (MAP) Pulse Ox O2 Delivery O2 Flow Rate FiO2 10/22/17 08:00 99.2 90 20 166/78 (107) 92 10/22/17 04:10 98.0 93 18 166/78 (107) 92 10/22/17 00:15 98.9 89 18 165/74 (104) 93 10/21/17 23:52 90 10/21/17 20:48 85 10/21/17 18:46 97.6 91 19 147/77 (100) 95 10/21/17 16:00 97.6 85 20 169/84 (112) 96 10/21/17 16:00 85 10/21/17 15:51 97.6 88 17 169/84 (112) 96 I/O 10/21/17 10/21/17 10/21/17 10/22/17 10/22/17 10/22/17 07:00 15:00 23:00 07:00 15:00 23:00 Intake Total 1240 ml 1679 ml 2000 ml 480 ml Output Total 1800 ml 2400 ml 2350 ml Balance -560 ml 1679 ml -400 ml -1870 ml Intake Oral 840 ml 780 ml 480 ml IV Total 1679 ml 1220 ml Packed Cells 400 ml Output Urine Total 1800 ml 2400 ml 2350 ml # Bowel Movements 5 0 Result Diagram: 10/22/17 0358 10/22/17 0358 Objective Remarks GENERAL: This is a well-nourished, well-developed patient, in no apparent distress. CARDIOVASCULAR: Regular rate and rhythm RESPIRATORY: Clear to auscultation. Breath sounds equal bilaterally. No wheezes , rales, or rhonchi. GASTROINTESTINAL: Abdomen soft, non-tender, nondistended. Normal active bowel sounds MUSCULOSKELETAL: Extremities without clubbing, cyanosis, trace edema NEURO: Alert & Oriented x3 to person, place, time. Moves all ext x4 A/P Problem List: (1) Acute renal failure ICD Code: N17.9 - Acute kidney failure, unspecified Status: Acute (2) Hypercalcemia ICD Code: E83.52 - Hypercalcemia Status: Acute (3) Symptomatic anemia ICD Code: D64.9 - Anemia, unspecified Status: Acute (4) Left leg DVT ICD Code: I82.402 - Acute embolism and thrombosis of unspecified deep veins of left lower extremity Status: Chronic (5) Type 2 diabetes mellitus ICD Code: E11.9 - Type 2 diabetes mellitus without complications Status: Acute (6) HTN (hypertension) ICD Code: I10 - Essential (primary) hypertension Status: Chronic Assessment and Plan 82-year-old male who came in the hospital secondary to progressive anemia, Hemoglobin 6.9. Acute blood loss anemia History of chronic anemia -Hemoglobin is 6.9 at time of admit -Etiology may be related to Eliquis coupled with renal failure and possibly underlying multiple myeloma -Eliquis held -Stool for occult blood negative -Blood transfusion x 3 with hemoglobin at 9.4 -Consult hematology appreciate recommendation Acute renal failure Etiology uncertain and may be related to multiple myeloma -nephrology consulted, appreciate recommendation -IV hydration -Follow renal function. Nephrology ordered, nephrology workup in progress -Avoid nephrotoxins -Renal ultrasound is negative Hypercalcemia Not improved on IV hydration -Follow calcium level, nephrology recommended avoiding Lasix and possible need for biphosphonate pending primary care coordinator's recommendation -Parathyroid hormone levels PTH intact 9.7 -Nephrology recommends vitamin D3 and calcitonin Hypertension, essential, chronic uncontrolled -Adjust treatments as needed -Continue metoprolol, increased to 25 mg with holding parameters -Continue diltiazem, 240 mg daily; may need to consider amlodipine if continue to be uncontrolled. Atrial fibrillation -rate controlled Left lower extremity DVT -Eliquis has to be stopped secondary to severe anemia -Follow on telemetry -Continue metoprolol -Continue diltiazem Consideration for warfarin due to acute renal failure when anemia improving GI bleed is ruled out. Hypothyroidism -Continue baseline supplement -TSH within normal Hx colon cancer History of monoclonal gammopathy (MGUS) Chronic anemia -MGUS Could be contributory and workup currently for multiple myeloma -Consulted hematology, previously followed by Dr. Byrne -Negative stool for occult blood Workup in progress and can be exacerbated by acute renal failure Skeletal survey suspicious for plasma cell dyscrasia and await for hematology 's opinion to determine for possible bone marrow biopsy DVT prophylaxis SCDs, chemoprophylaxis held secondary to anemia suspicion of bleed Discharge Planning Home health care upon discharge to home Jackie Gresham MD Oct 22, 2017 13:24
--- NOTE | 2017-10-22 15:15 | PD.ONC.PN ---
Subjective Subjective Remarks Afebrile overnight. Patient resting in bed in nad. at bedside. patient eating regular food today. he states he is feeling much better overall since he came in. Objective Data Date Time Temp Pulse Resp B/P (MAP) Pulse Ox O2 Delivery O2 Flow Rate FiO2 10/22/17 12:00 97.3 83 21 139/64 (89) 93 10/22/17 08:00 99.2 90 20 166/78 (107) 92 10/22/17 08:00 100 10/22/17 04:10 98.0 93 18 166/78 (107) 92 10/22/17 00:15 98.9 89 18 165/74 (104) 93 10/21/17 23:52 90 10/21/17 20:48 85 10/21/17 18:46 97.6 91 19 147/77 (100) 95 10/21/17 16:00 97.6 85 20 169/84 (112) 96 10/21/17 16:00 85 10/21/17 15:51 97.6 88 17 169/84 (112) 96 10/22/17 10/22/17 10/22/17 06:59 14:59 22:59 Intake Total 480 ml Output Total 2350 ml 220 ml Balance -1870 ml -220 ml Result Diagram: 10/22/17 0358 10/22/17 0358 Laboratory Results Laboratory Tests Test 10/21/17 17:20 10/22/17 03:58 Urine Total Volume 24 Hours 4765 ML Urine Total Protein 24 Hour 2926 MG/24HR White Blood Count 8.2 TH/MM3 Red Blood Count 2.91 MIL/MM3 Hemoglobin 8.6 GM/DL Hematocrit 25.0 % Mean Corpuscular Volume 85.9 FL Mean Corpuscular Hemoglobin 29.4 PG Mean Corpuscular Hemoglobin Concent 34.2 % Red Cell Distribution Width 18.8 % Platelet Count 186 TH/MM3 Mean Platelet Volume 7.9 FL Neutrophils (%) (Auto) 76.5 % Lymphocytes (%) (Auto) 8.8 % Monocytes (%) (Auto) 7.1 % Eosinophils (%) (Auto) 7.4 % Basophils (%) (Auto) 0.2 % Neutrophils # (Auto) 6.3 TH/MM3 Lymphocytes # (Auto) 0.7 TH/MM3 Monocytes # (Auto) 0.6 TH/MM3 Eosinophils # (Auto) 0.6 TH/MM3 Basophils # (Auto) 0.0 TH/MM3 CBC Comment AUTO DIFF Differential Comment AUTO DIFF CONFIRMED Ovalocytes 1+ Blood Urea Nitrogen 46 MG/DL Creatinine 4.58 MG/DL Random Glucose 81 MG/DL Total Protein 6.4 GM/DL Calcium Level 11.4 MG/DL Sodium Level 139 MEQ/L Potassium Level 3.1 MEQ/L Chloride Level 106 MEQ/L Carbon Dioxide Level 21.0 MEQ/L Anion Gap 12 MEQ/L Estimat Glomerular Filtration Rate 12 ML/MIN Protein Corrected Calcium 12.0 MG/DL Administered Medications Medications (Trade) Dose Ordered Sig/Reggie Route PRN Reason Start Time Stop Time Status Last Admin Dose Admin Sodium Chloride (NS Flush) 2 ml BID IV FLUSH 10/18/17 21:00 10/22/17 08:45 Magnesium Hydroxide (Milk Of Robert Liq) 30 ml Q12H PRN PO Mild constipation 10/18/17 14:15 10/21/17 08:17 Cholecalciferol (Vitamin D3) 2,000 units DAILY PO 10/19/17 09:00 10/22/17 08:45 Levothyroxine Sodium (Synthroid) 75 mcg DAILY@0600 PO 10/19/17 06:00 10/22/17 06:39 Multivitamins (Theragran) 1 tab DAILY PO 10/19/17 09:00 10/22/17 08:45 Docusate Sodium (Colace) 100 mg BID PO 10/18/17 21:00 10/21/17 08:16 Clonidine (Catapres) 0.1 mg Q6H PRN PO SBP>160, DBP>90 10/18/17 18:30 10/21/17 15:54 Metoprolol Tartrate (Lopressor) 25 mg BID PO 10/19/17 21:00 10/22/17 08:45 Sodium Chloride 1,000 ml @ 125 mls/hr Q8H IV 10/19/17 10:00 10/21/17 21:54 Diltiazem HCl (Cardizem Cd) 240 mg DAILY PO 10/20/17 09:00 10/22/17 08:45 Hydralazine HCl (Apresoline) 50 mg Q8HR PO 10/21/17 22:00 10/22/17 11:46 Sodium Bicarbonate (Sodium Bicarbonate) 650 mg Q8HR PO 10/21/17 22:00 10/22/17 11:45 Objective Remarks GENERAL: Pleasant elderly male, sitting up in chair next to bed, eating lunch SKIN: Warm and dry. HEAD: Normocephalic. EYES: No injection or drainage. NECK: Supple, trachea midline. CARDIOVASCULAR: Regular rate and rhythm RESPIRATORY: Breath sounds equal bilaterally. No accessory muscle use. GASTROINTESTINAL: Abdomen soft, non-tender, nondistended. EXTREMITIES: No cyanosis NEUROLOGICAL: awake and alert normal speech. Assessment/Plan Assessment 82y/o male with anemia, hypercalcemia, and acute renal failure. h/o MGUS, hypertension, chronic kidney disease, hypothyroidism, colon cancer, anemia. Plan 1. 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 --skeletal survey indicating ill defined lesions that may be consistent with myeloma. --continue IVF for hypercalcemia 2. Atrial fibrillation and history of left lower extremity deep venous thrombosis. eliquis currently discontinued d/t poor kidney function. will hold off on ordering anticoagulation until after bone marrow biopsy tomorrow. Attending Statement The exam, history, and the medical decision-making described in the above note were completed with the assistance of the mid-level provider. I reviewed and agree with the findings presented. I attest that I had a [id number] encounter with the patient on the same day, and personally performed and documented my assessment and findings in the medical record. 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 he is agreeable to this one diagnosis is confirmed, he would need port placement Skylar Sanchez Oct 22, 2017 15:15 Chandler Love MD Oct 22, 2017 22:07
[2017-10-22 15:30] VITALS: BP 169/75; PULSE 88; RESP 17; TEMP 97.8; O2SAT 94
[2017-10-22 16:43] LABS: ALB/GLOB RATIO (SPE) 1.16 (1.39-2.23)
[2017-10-22 20:00] VITALS: BP 167/78; PULSE 88; RESP 16; TEMP 98.1; O2SAT 94
[2017-10-22 23:51] LABS: KAPPA/LAMBDA FREE GREATER THAN 1000.00 (0.26-1.65)
[2017-10-23] VITALS (14 sets, daily range): BP systolic 145–218; BP diastolic 75–110; PULSE 81–125; RESP 17–22; TEMP 97.4–99.3; O2SAT 93–97
[2017-10-23] MEDS: SODIUM CHLOR 0.9% 1000 ML INJ 1,000 ML IV SCH ×3 (03:09→18:42)
[2017-10-23] MEDS: SODIUM BICARBONATE 650 MG TAB PO SCH ×3 (05:51→23:07)
[2017-10-23] MEDS: LEVOTHYROXINE SODIUM 75 MCG TAB PO SCH (05:51)
[2017-10-23] MEDS: hydrALAZINE HCL 25 MG TAB PO SCH ×3 (05:51→23:07)
[2017-10-23 08:49] LABS: BICARBONATE 20.6 MEQ/L (21.0-32.0); CALCIUM 12.1 MG/DL (8.5-10.1); CREATININE 4.44 MG/DL (0.60-1.30)
[2017-10-23] MEDS: SODIUM CHLORIDE 0.9% FLUSH 10 ML FLUSH IV FLUSH SCH ×2 (09:00→21:00)
[2017-10-23 09:02] LABS: TOTAL PROTEIN 6.9 GM/DL (6.4-8.2)
[2017-10-23 09:04] LABS: CALCIUM-PROTEIN CORRECTED 12.3 MG/DL (8.5-10.1)
[2017-10-23] MEDS: METOPROLOL TARTRATE 25 MG TAB PO SCH ×2 (10:41→21:00)
[2017-10-23] MEDS: MULTIVITAMIN TAB PO SCH (10:42)
[2017-10-23] MEDS: DILTIAZEM-CD 240 MG CAP ER PO SCH (10:42)
[2017-10-23] MEDS: DOCUSATE SODIUM 100 MG CAP PO SCH ×2 (10:42→21:00)
[2017-10-23] MEDS: CHOLECALCIFEROL (VIT D3) 1000 UNIT TAB PO SCH (10:42)
--- NOTE | 2017-10-23 14:23 | HHI.PR ---
Subjective Remarks Pt on his way to getting his bone biopsy. Has no complaints other than feeling thirsty but is currently NPO for his procedure. No nausea or vomiting Discussed w RN, Ca levels elevated. Objective Vitals Vital Signs Date Time Temp Pulse Resp B/P (MAP) Pulse Ox O2 Delivery O2 Flow Rate FiO2 10/23/17 12:00 98.9 99 19 145/82 (103) 94 10/23/17 08:00 98.2 116 19 160/99 (119) 93 10/23/17 04:20 97.4 108 18 162/86 (111) 93 10/23/17 00:20 97.8 89 17 178/79 (112) 95 10/22/17 20:00 98.1 88 16 167/78 (107) 94 10/22/17 15:30 97.8 88 17 169/75 (106) 94 I/O 10/22/17 10/22/17 10/22/17 10/23/17 10/23/17 10/23/17 07:00 15:00 23:00 07:00 15:00 23:00 Intake Total 480 ml 1560 ml 480 ml Output Total 2350 ml 220 ml 1810 ml 2100 ml Balance -1870 ml -220 ml -250 ml -1620 ml Intake Oral 480 ml 1560 ml 480 ml Output Urine Total 2350 ml 220 ml 1810 ml 2100 ml # Bowel Movements 0 2 0 Result Diagram: 10/22/17 0358 10/23/17 0735 Imaging Last Impressions Bone Osseous Survey 10/20/17 0000 Signed Impressions: CONCLUSION: Ill-defined lucencies and patchy cortical thinning of multiple bones, primarily the long bones and especially the right tibia and fibula. Extensive multiple m yeloma could certainly have this appearance in the proper clinical setting. Renal Ultrasound 10/19/17 0000 Signed Impressions: CONCLUSION: 1. Negative renal sonogram. Objective Remarks GENERAL: laying in bed, appears comfortable, answers questions appropriately. RESPIRATORY: equal chest rises, no wheezing. GASTROINTESTINAL: nondistended MUSCULOSKELETAL: moves extremities. NEURO: Alert & Oriented, normal speech A/P Problem List: (1) Acute renal failure ICD Code: N17.9 - Acute kidney failure, unspecified Status: Acute (2) Hypercalcemia ICD Code: E83.52 - Hypercalcemia Status: Acute (3) Symptomatic anemia ICD Code: D64.9 - Anemia, unspecified Status: Acute (4) Left leg DVT ICD Code: I82.402 - Acute embolism and thrombosis of unspecified deep veins of left lower extremity Status: Chronic (5) Type 2 diabetes mellitus ICD Code: E11.9 - Type 2 diabetes mellitus without complications Status: Acute (6) HTN (hypertension) ICD Code: I10 - Essential (primary) hypertension Status: Chronic Assessment and Plan 82-year-old male who came in the hospital secondary to progressive anemia, Hemoglobin 6.9 on admission. Acute blood loss anemia History of chronic anemia -Hemoglobin is 6.9 at time of admit -Etiology may be related to Eliquis coupled with renal failure and possibly underlying multiple myeloma -Eliquis has been held -Stool for occult blood negative -Blood transfusion x 3 with hemoglobin at 8.6 on 10/22/17 -Hematology following. Pt on his way for a bone marrow biopsy. SPEP pending Acute renal failure Etiology uncertain and may be related to multiple myeloma -nephrology following, appreciate recommendation -continue IV hydration -Follow renal function. Cr. 4.44 today. Nephrology workup in progress -Avoid nephrotoxins -Renal ultrasound is negative Hypercalcemia Not improved on IV hydration. Received a few doses of calcitonin w not much improvement. Ca level today is 12.3. I have added a dose of pamidronate IV x 1. Monitor calcium levels very closely. -nephrology recommended avoiding Lasix -Parathyroid hormone levels PTH intact 9.7 -Nephrology recommends vitamin D3 and calcitonin Hypertension, essential, chronic uncontrolled -Adjust treatments as needed -Continue metoprolol -Continue diltiazem, 240 mg daily; may need to consider amlodipine if continue to be uncontrolled. Atrial fibrillation -rate controlled Left lower extremity DVT -Eliquis has to be stopped secondary to severe anemia -Follow on telemetry -Continue metoprolol -Continue diltiazem Consideration for warfarin due to acute renal failure when anemia improved and GI bleed has been ruled out (stool neg of blood on hemoccult). Per hematology consider restarting after bone marrow biopsy completed. Hypothyroidism -Continue baseline supplement -TSH within normal Hx colon cancer History of monoclonal gammopathy (MGUS) Chronic anemia -MGUS Could be contributory and workup currently for multiple myeloma -Consulted hematology, previously followed by Dr. Byrne -Negative stool for occult blood Workup in progress and can be exacerbated by acute renal failure Skeletal survey suspicious for plasma cell dyscrasia and await for hematology 's opinion to determine for possible bone marrow biopsy DVT prophylaxis SCDs, chemoprophylaxis to be resumed once cleared by hematology. Discharge Planning Bone marrow biopsy today. Work-up for multiple myeloma in progress Awaiting final recs from hematology and nephrology Cristina Stewart MD Oct 23, 2017 14:23
[2017-10-23] MEDS ORDERED: MIDAZOLAM HCL 2 MG/2 ML VIAL ONE (14:58)
[2017-10-23] MEDS ORDERED: PAMIDRONATE INJ 60 MG in SODIUM CHLORID 0.9% 500 ML INJ 500 ML IV ONE (15:00)
--- NOTE | 2017-10-23 15:09 | PD.ONC.PN ---
Subjective Subjective Remarks Afebrile Pt reports he is thirsty Awaiting to go downstairs for bone marrow biopsy Urinating well No other acute complaints Objective Data Date Time Temp Pulse Resp B/P (MAP) Pulse Ox O2 Delivery O2 Flow Rate FiO2 10/23/17 12:00 98.9 99 19 145/82 (103) 94 10/23/17 08:00 98.2 116 19 160/99 (119) 93 10/23/17 04:20 97.4 108 18 162/86 (111) 93 10/23/17 00:20 97.8 89 17 178/79 (112) 95 10/22/17 20:00 98.1 88 16 167/78 (107) 94 10/22/17 15:30 97.8 88 17 169/75 (106) 94 10/23/17 10/23/17 10/23/17 06:59 14:59 22:59 Intake Total 480 ml Output Total 2100 ml Balance -1620 ml Result Diagram: 10/22/17 0358 10/23/17 0735 Laboratory Results Laboratory Tests Test 10/23/17 07:35 Blood Urea Nitrogen 45 MG/DL Creatinine 4.44 MG/DL Random Glucose 88 MG/DL Total Protein 6.9 GM/DL Calcium Level 12.1 MG/DL Sodium Level 142 MEQ/L Potassium Level 3.1 MEQ/L Chloride Level 109 MEQ/L Carbon Dioxide Level 20.6 MEQ/L Anion Gap 12 MEQ/L Estimat Glomerular Filtration Rate 13 ML/MIN Protein Corrected Calcium 12.3 MG/DL Administered Medications Medications (Trade) Dose Ordered Sig/Reggie Route PRN Reason Start Time Stop Time Status Last Admin Dose Admin Sodium Chloride (NS Flush) 2 ml BID IV FLUSH 10/18/17 21:00 10/22/17 20:47 Magnesium Hydroxide (Milk Of Magnesia Liq) 30 ml Q12H PRN PO Mild constipation 10/18/17 14:15 10/21/17 08:17 Cholecalciferol (Vitamin D3) 2,000 units DAILY PO 10/19/17 09:00 10/23/17 10:42 Levothyroxine Sodium (Synthroid) 75 mcg DAILY@0600 PO 10/19/17 06:00 10/23/17 05:51 Multivitamins (Theragran) 1 tab DAILY PO 10/19/17 09:00 10/23/17 10:42 Docusate Sodium (Colace) 100 mg BID PO 10/18/17 21:00 10/23/17 10:42 Clonidine (Catapres) 0.1 mg Q6H PRN PO SBP>160, DBP>90 10/18/17 18:30 10/21/17 15:54 Metoprolol Tartrate (Lopressor) 25 mg BID PO 10/19/17 21:00 10/23/17 10:41 Sodium Chloride 1,000 ml @ 125 mls/hr Q8H IV 10/19/17 10:00 10/23/17 10:51 Diltiazem HCl (Cardizem Cd) 240 mg DAILY PO 10/20/17 09:00 10/23/17 10:42 Hydralazine HCl (Apresoline) 50 mg Q8HR PO 10/21/17 22:00 10/23/17 05:51 Sodium Bicarbonate (Sodium Bicarbonate) 650 mg Q8HR PO 10/21/17 22:00 10/23/17 05:51 Objective Remarks GENERAL: Pleasant elderly male resting in bed in no obvious distress. Spouse at bedside. SKIN: Warm and dry. HEAD: Normocephalic. EYES: No injection or drainage. NECK: Supple, trachea midline. CARDIOVASCULAR: Regular rate and rhythm RESPIRATORY: Breath sounds equal bilaterally. No accessory muscle use. GASTROINTESTINAL: Abdomen soft, non-tender, nondistended. EXTREMITIES: No cyanosis NEUROLOGICAL: Normal speech. No obvious focal deficit. Assessment/Plan Assessment 82y/o male with anemia, hypercalcemia, and acute renal failure. h/o MGUS, hypertension, chronic kidney disease, hypothyroidism, colon cancer, anemia. Plan 1. 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 --Resume calcitonin for hypercalcemia; unable to use bisphosphonate d/t decreased kidney function. 2. Atrial fibrillation and history of left lower extremity deep venous thrombosis. Anticoagulation on hold due to BMB. Kym Roth Oct 23, 2017 15:09
--- NOTE | 2017-10-23 15:42 | PD.RAD ---
Post US Procedure Prog Note Pre Procedure Diagnosis: (1) Anemia Post Procedure Diagnosis: (1) Anemia Procedure Date: Oct 23, 2017 Supervising Radiologist: Armando Barbosa Estimated blood loss: minimal Anesthesia: Conscious Sedation Plan of Activity Patient to Unit: ROPU Patient Condition: Good See PACS Report for procedural detail/treatment Biopsy Imaging Guidance: CT Side: Right Biopsy Procedure: Bone Marrow Site: posterior iliac bone. Plan to ROPU then return to floor in one hour. Armando Barbosa MD Oct 23, 2017 15:42
--- NOTE | 2017-10-23 16:42 | RADRPT ---
EXAM DATE: 10/23/2017 3:53 PM EDT AGE/SEX: 82 years / Male INDICATIONS: Anemia CLINICAL DATA: This is the patient's initial encounter. Patient reports that signs and symptoms have been present for 1 day and indicates a pain score of 0/10. MEDICAL/SURGICAL HISTORY: Hypertension. Diabetes mellitus type I. Colon resection. COMPARISON: No prior [facility] exams available for comparison. SEDATION TIME (min): 30 min BIOPSY SITE: Right bone marrow MEDICATION(S): 2 mg midazolam (Versed) IV 100 mcg fentanyl (Sublimaze) IV DEVICE(S): 11 gauge On-Control needle One . . PROCEDURE: CT guided Right bone marrow biopsy Prior to the procedure informed consent was obtained. Any appropriate prior imaging studies were rev iewed. Using automated exposure control and adjustment of the mA and/or kV according to patient size , radiation dose was kept as low as reasonably achievable to obtain optimal diagnostic quality images . DICOM format image data is available electronically for review and comparison. The site was prepped in a sterile fashion. Full sterile technique was used, including cap, mask, fransico rile gloves and gown and a large sterile sheet. Hand hygiene and 2% chlorhexidine and/or betadine/al cohol prep was utilized per protocol for cutaneous antisepsis. The skin and subcutaneous tissues wer e infiltrated with local anesthetic solution. With CT guidance the right posterior iliac bone was localized. Biopsy was performed using the prescri bed needle as above. Following biopsy marrow aspiration was performed with repeat puncture. Adequate hemostasis was obtained with compression at the puncture site. Conscious sedation was performed with the prescribed dosages and duration as above in the presence of an independent trained radiology nurse to assist in the monitoring of the patient. EKG and oximetry remained stable throughout the procedure. The patient tolerated the procedure well and there were no complications. The patient was sent to Radiology Outpatient Unit in stable condition. CONCLUSION: 1. Uncomplicated CT guided bone marrow aspirate. 2. Uncomplicated CT guided bone marrow biopsy. Electronically signed by: Armando Barbosa MD 10/23/2017 4:41 PM EDT
[2017-10-23] MEDS ORDERED: LABETALOL HCL 100 MG/20 ML VIAL IV ONE (17:00)
[2017-10-23] MEDS ORDERED: LABETALOL HCL 100 MG/20 ML VIAL IV PUSH ONE (17:30)
--- NOTE | 2017-10-23 18:08 | HHI.NPPN ---
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 He has been having some fatigue and weakness over the past few weeks and a CBC showed a Hgb of 7.2 prompting evaluation at the hospital. The patient's is the primary historian. Was admitted here in Jun for a L femur fx that he sustained at home while turning while moving TV tray causing a twist and fall type injury on his left leg. reports spiral fracture of his left femur that he underwent ORIF. He subsequently developed a DVT in the same leg. Renal functions during that admission were overall normal with SCr at 0.8 baseline. Serum calcium normal at this admission at 8.6-9.0. In August, he developed A fib with RVR and had acute renal insufficiency though nephrology services were not called as his functions improved with correction of RVR (admitting SCr 2.40 on 08/29 and discharge on 09/01 at 1.74). Noted mild hypercalcemia during this admission at 10.7. 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 Byrne, but was many years ago as per the . Says that he never underwent bone marrow bx, but had multiple labs that "didn't change" so they opted to stop following up. Given his recent anemia, his PCP did refer him to Dr. Jordyn Garcia, but appointment not until November. No known CKD hx. Denies any recent NVD No NSAID use No recent abx. Besides the aforementioned health history as of recent, he has been in his usual state of health as per his . Has been on Calcium 600mg with 500IU Vitamin D, with an additional Vitamin D3 1000IU daily since his femur fx. Admitting SCr 2.11 that has improved to 4.47 at consult. Serum CCa 12.9 at admission Interval History Pt s/p BMB today In some pain, but tolerating OK BP quite high requiring Labetalol post-procedural. (Macarena Smith) Review of Systems General Constitutional: Fatigue (Macarena Smith) Objective Data Data 10/23/17 10/24/17 19:00 07:00 Intake Total 0 ml Output Total 1875 ml Balance -1875 ml Intake Oral 0 ml Output Urine Total 1875 ml Vital Signs Date Time Temp Pulse Resp B/P (MAP) Pulse Ox O2 Delivery O2 Flow Rate FiO2 10/23/17 16:56 84 20 168/76 (106) 97 10/23/17 16:26 81 20 174/94 (120) 97 10/23/17 15:56 97.7 83 22 184/110 (134) 94 10/23/17 12:00 98.9 99 19 145/82 (103) 94 10/23/17 08:00 98.2 116 19 160/99 (119) 93 10/23/17 04:20 97.4 108 18 162/86 (111) 93 10/23/17 00:20 97.8 89 17 178/79 (112) 95 10/22/17 20:00 98.1 88 16 167/78 (107) 94 (Macarena Smith) -: 10/22/17 0358 10/23/17 0735 Imaging Last Impressions Bone Biopsy CT 10/23/17 0000 Signed Impressions: CONCLUSION: 1. Uncomplicated CT guided bone marrow aspirate. 2. Uncomplicated CT guided bone marrow biopsy. Bone Osseous Survey 10/20/17 0000 Signed Impressions: CONCLUSION: Ill-defined lucencies and patchy cortical thinning of multiple bones, primarily the long bones and especially the right tibia and fibula. Extensive multiple m yeloma could certainly have this appearance in the proper clinical setting. Renal Ultrasound 10/19/17 0000 Signed Impressions: CONCLUSION: 1. Negative renal sonogram. Medication Review Current Medications Medications (Trade) Dose Ordered Sig/Reggie Route Start Time Stop Time Status Last Admin (NS Flush) 2 ml UNSCH PRN IV FLUSH 10/18/17 14:15 (NS Flush) 2 ml BID IV FLUSH 10/18/17 21:00 10/22/17 20:47 (Zofran Odt) 4 mg Q6H PRN PO 10/18/17 14:45 (Morphine Inj) 2 mg Q3H PRN IV 10/18/17 14:45 (Morphine Inj) 4 mg Q3H PRN IV 10/18/17 14:45 (Narcan Inj) 0.4 mg UNSCH PRN IV PUSH 10/18/17 14:15 (Milk Of Magnesia Liq) 30 ml Q12H PRN PO 10/18/17 14:15 10/21/17 08:17 (Vitamin D3) 2,000 units DAILY PO 10/19/17 09:00 10/23/17 10:42 (Synthroid) 75 mcg DAILY@0600 PO 10/19/17 06:00 10/23/17 05:51 (Theragran) 1 tab DAILY PO 10/19/17 09:00 10/23/17 10:42 (Pill Splitter) 1 ea UNSCH PRN OTHER 10/18/17 15:45 (Colace) 100 mg BID PO 10/18/17 21:00 10/23/17 10:42 (Catapres) 0.1 mg Q6H PRN PO 10/18/17 18:30 10/21/17 15:54 (Lopressor) 25 mg BID PO 10/19/17 21:00 10/23/17 10:41 Sodium Chloride 1,000 ml @ 125 mls/hr Q8H IV 10/19/17 10:00 10/23/17 10:51 (Cardizem Cd) 240 mg DAILY PO 10/20/17 09:00 10/23/17 10:42 (Apresoline) 50 mg Q8HR PO 10/21/17 22:00 10/23/17 05:51 (Sodium Bicarbonate) 650 mg Q8HR PO 10/21/17 22:00 10/23/17 05:51 Pamidronate Disodium 60 mg/ Sodium Chloride 500 ml @ 125 mls/hr ONCE ONCE IV 10/23/17 15:00 10/23/17 18:59 (Miacalcin Inj) 200 units BID SQ 10/23/17 21:00 (Macarena Smith) Physical Exam General Appearance: Well Developed, Well Nourished, No Acute Distress, Comfortable (Macarena Smith) Eyes Eye Exam: Sclera White (Macarena Smith) Pulmonary Resp Exam: Clear Bilaterally, Breath Sounds Equal, No Distress (Macarena Smith) Cardiology CV Exam: Regular, Normal Sinus Rhythm (Macarena Smith) Gastrointestinal/Abdomen GI Exam: Soft, Non-Tender (Macarena Smith) Genitourinary Exam: Clear Urine (Macarena Smith) Integumentary Skin Exam: Clear, Warm (Macarena Smith) Extremeties Extremities Exam: Trace Edema (BLE) (Macarena Smith) Neurologic Neuro Exam: Awake, Speech Clear, Moving All Extremities (Macarena Smith) Psychiatric Psych Exam: Appropriate Responses (Macarena Smith) Assessment/Plan Discussed Condition With: Patient Problem List: (1) Acute renal failure ICD Codes: N17.9 - Acute kidney failure, unspecified Status: Acute Plan: Patient's creatinine level has only marginally improved with aggressive IV hydration. I suspect that the patient may have intrinsic kidney disease related to probable multiple myeloma. Awaiting further input from hematology/ oncology. I discussed with the patient's the current status of the patient's renal function. Currently his GFR does remain below 15 although there is no acute indication to initiate dialysis currently the severity of his azotemia was explained to his . Bone marrow bx today---pending pathology. Serum calcium rasheeda again today. Would not recommend re-dosing Calcitonin as not effective after 48h. Will give dose of Aredia today to help improve hypercalcemia. We will continue to monitor. Medications should be adjusted for the patient's renal decline. Avoid nephrotoxic agents such as iodinated contrast dyes and NSAIDs. Avoid gadolinium. (2) Hypercalcemia ICD Codes: E83.52 - Hypercalcemia Status: Acute Plan: As above. (3) Hypokalemia ICD Codes: E87.6 - Hypokalemia Plan: Resolved Will continue to monitor and replete as needed. (4) Atrial fibrillation ICD Codes: I48.91 - Unspecified atrial fibrillation Plan: Management as per primary team (5) HTN (hypertension) ICD Codes: I10 - Essential (primary) hypertension Status: Chronic Plan: Continue current regimen Given PRN Labetalol and Clonidine today. Will adjust further tomorrow if needed. (Macarena Smith) Plan Patient's calcium level was rising again. Calcitonin not effective after 48 hours the patient had already received this recently. Pamidronate ordered with reduced dosage in view of renal insufficiency to improve the calcium level. Await bone marrow report. The exam, history, and the medical decision-making described in the above note were completed with the assistance of the PAMartha. I reviewed and agree with the findings presented. (Juan Ramon Carlson MD) Macarena Smith Oct 23, 2017 18:08 Juan Ramon Carlson MD Oct 24, 2017 12:48
[2017-10-23] MEDS ORDERED: CALCITONIN SALMON INJ 400 UNITS/2 ML VIAL SQ SCH (21:00)
[2017-10-23] MEDS ORDERED: DEXAMETHASONE SOD PHOS 4 MG/ML VIAL IV PUSH ONE (21:30)
--- NOTE | 2017-10-23 21:39 | RADRPT ---
EXAM DATE: 10/23/2017 9:34 PM EDT AGE/SEX: 82 years / Male INDICATIONS: Stroke alert, left side weakness and slurred speech. CLINICAL DATA: This is the patient's initial encounter. Patient reports that signs and symptoms have been present for 1 day and indicates a pain score of 0/10. MEDICAL/SURGICAL HISTORY: Cardiovascular disease. Hypertension. Carcinoma, colon. None. RADIATION DOSE: 66.34 CTDI (mGy) COMPARISON: . Report was called by [Dr. Montes De Oca to Dr. Saunders at 2136 hours ] TECHNIQUE: CT of the head without contrast. Using automated exposure control and adjustment of the mA and/or kV according to patient size, radiation dose was kept as low as reasonably achievable to ob tain optimal diagnostic quality images. FINDINGS: Cerebrum: Atrophy. 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 The ventricles are normal for age. No evidence of midline shift, mass lesion, hemorrhage or acute infarction. No extra axial fluid collections are seen. Posterior Fossa: The cerebellum and brainstem are intact. The 4th ventricle is midline. The cerebe llopontine angle is unremarkable. Extracranial: The visualized portion of the orbits is intact. Skull: The calvaria is intact. No evidence of skull fracture. CONCLUSION: 1. Atrophy. 2. No acute intracranial abnormality. Electronically signed by: Mason Montes De Oca MD 10/23/2017 9:37 PM EDT
[2017-10-23 21:41] LABS: AUTOMATED NEUTROPHIL # 6.6 TH/MM3 (1.8-7.7); BASOPHIL % 0.4 % (0.0-2.0); EOSINOPHIL # 0.7 TH/MM3 (0-0.4); EOSINOPHIL % 7.7 % (0.0-4.0); HEMATOCRIT 24.4 % (39.0-51.0); HEMOGLOBIN 8.1 GM/DL (13.0-17.0); LYMPH % 8.8 % (9.0-44.0); LYMPHOCYTE # 0.8 TH/MM3 (1.0-4.8); MEAN CELL VOLUME 85.2 FL (80.0-100.0); MEAN CORPUSCULAR HEMOGLOBIN 28.5 PG (27.0-34.0); MEAN CORPUSCULAR HGB CONC 33.4 % (32.0-36.0); MEAN PLATELET VOLUME 7.5 FL (7.0-11.0); MONO % 6.5 % (0.0-8.0); MONOCYTE # 0.6 TH/MM3 (0-0.9); NEUT % 76.6 % (16.0-70.0); PLATELET COUNT 181 TH/MM3 (150-450); RED BLOOD COUNT 2.86 MIL/MM3 (4.50-5.90); RED CELL DISTRIBUTION WIDTH 18.9 % (11.6-17.2); WHITE BLOOD COUNT 8.6 TH/MM3 (4.0-11.0)
[2017-10-23 21:52] LABS: INTERNATIONAL NORMALIZED RATIO 1.2 RATIO
[2017-10-23 22:09] LABS: TROPONIN I 0.03 NG/ML (0.02-0.05)
[2017-10-23 22:10] LABS: OVALOCYTES 1+ (NORMAL)
[2017-10-23] MEDS ORDERED: CHLORHEXIDINE GLUCONATE 2 % 1 PACK (2 CLOTHS)(extra cloths) TOPICAL PRN (23:00)
--- NOTE | 2017-10-23 23:09 | PD.CONS ---
[facility] Service Critical Care Medicine Consult Requested By Dr. Saunders Reason for Consult stroke alert, uncontrolled HTN Primary Care Physician Non-Staff History of Present Illness History of Present Illness Mr. Mcintosh is an 82-year-old male. He came in the hospital secondary to progressive anemia. Hemoglobin today is 6.9. He has a past history of bleed which was not found to be GI related. Additional findings today are acute renal failure and hypercalcemia. He recalls that he might have had some kidney disease in the past but cannot specify. Looking in our past records his highest creatinine value have been 3.5 but currently his creatinine levels at 5.11. She does not report being dehydrated. He has had a fracture approximately 3 months ago and has been on bedrest until recently for this. Additionally he is on Eliquis. Eliquis combined with his renal condition may be contributory to blood loss. Renal dysfunction can also be contributory to his hypercalcemia. Shortness of breath and weakness have been his primary complaints. Patient underwent bone marrow biopsy by interventional radiology on 10/23. Around 9 PM patient developed altered mental status with speech difficulty and questionable left-sided facial weakness. Stroke alert was called. Head CT done during stroke alert was negative for bleed. Dr. Saunders from neurology was contacted. Patient's blood pressure at that time was 218 systolic. She ordered a nicardipine drip and transferred patient to ICU with critical care consult. I evaluated patient following his arrival to the ICU. At that time patient appeared comfortable not in any acute distress. He was moving all 4 extremities at the time and was completely awake and alert and oriented. He did have some tremors in bilateral upper extremities however stated that he was feeling cold and shivering. ROS - General Review of Systems Constitutional: COMPLAINS OF: Fatigue, DENIES: Fever, Chills Eyes: DENIES: Diplopia, Eye inflammation, Eye pain Ears, nose, mouth, throat: DENIES: Hearing loss, Vertigo, Nasal discharge Respiratory: DENIES: Cough, Snoring, Wheezing Cardiovascular: DENIES: Chest pain, Palpitations, Syncope Gastrointestinal: DENIES: Abdominal pain, Black stools, Bloody stools Musculoskeletal: COMPLAINS OF: Stiffness, Back pain, DENIES: Joint pain, Muscle aches Integumentary: DENIES: Abnormal pigmentation, Nail changes, Pruritus Hematologic/lymphatic: DENIES: Bruising, Lymphadenopathy Immunologic/allergic: DENIES: Eczema, Urticaria Neurologic: DENIES: Abnormal gait, Headache, Paresthesias Psychiatric: DENIES: Anxiety, Confusion, Hallucinations Except as stated in HPI: all other systems reviewed are Neg PFSH Past Family Social History Past Medical History htn no prior hx of cad/chf/afib prior caesar secondary to nsaid in 2015 hypothyroidism colon cancer- diagnosed 1983- s/p resection, no chemo or radiation MUGUS- about 5 yrs ago chronic anemia Past Surgical History colon cancer resection laminectomy 3 hip sx 2 knee sx Reported Medications Reported Meds & Active Scripts Active Calcium 600+D 200 (Calcium Carbonate-Vitamin D) 600-200 Mg-Unit Tab 1 Tab PO BID Vitamin D3 (Cholecalciferol) 2,000 Unit Cap 2,000 Units PO DAILY Reported Metoprolol Tartrate 25 Mg Tab 12.5 Mg PO BID Cartia Xt (Diltiazem ER 24 HR) 120 Mg Caper 240 Mg PO DAILY Eliquis (Apixaban) 5 Mg Tab 5 Mg PO BID Multiple Vitamin 1 Tab 1 Tab PO DAILY Levothyroxine (Levothyroxine Sodium) 75 Mcg Tab 75 Mcg PO DAILY Allergies: Coded Allergies: No Known Allergies (Verified Allergy, Unknown, 06/24/17) Active Ordered Medications Administered Medications Medications (Trade) Dose Ordered Sig/Reggie Route PRN Reason Start Time Stop Time Status Last Admin Dose Admin Sodium Chloride (NS Flush) 2 ml BID IV FLUSH 10/18/17 21:00 10/22/17 20:47 Magnesium Hydroxide (Milk Of Magnora Liq) 30 ml Q12H PRN PO Mild constipation 10/18/17 14:15 10/21/17 08:17 Cholecalciferol (Vitamin D3) 2,000 units DAILY PO 10/19/17 09:00 10/23/17 10:42 Levothyroxine Sodium (Synthroid) 75 mcg DAILY@0600 PO 10/19/17 06:00 10/23/17 05:51 Multivitamins (Theragran) 1 tab DAILY PO 10/19/17 09:00 10/23/17 10:42 Docusate Sodium (Colace) 100 mg BID PO 10/18/17 21:00 10/23/17 10:42 Clonidine (Catapres) 0.1 mg Q6H PRN PO SBP>160, DBP>90 10/18/17 18:30 10/21/17 15:54 Metoprolol Tartrate (Lopressor) 25 mg BID PO 10/19/17 21:00 10/23/17 10:41 Sodium Chloride 1,000 ml @ 125 mls/hr Q8H IV 10/19/17 10:00 10/23/17 10:51 Diltiazem HCl (Cardizem Cd) 240 mg DAILY PO 10/20/17 09:00 10/23/17 10:42 Hydralazine HCl (Apresoline) 50 mg Q8HR PO 10/21/17 22:00 10/23/17 05:51 Sodium Bicarbonate (Sodium Bicarbonate) 650 mg Q8HR PO 10/21/17 22:00 10/23/17 05:51 Family History sister- colon cancer Social History smokes pipes in the past quit no etoh abuse or drug abuse Physical Exam Vital Signs Vital Signs Date Time Temp Pulse Resp B/P (MAP) Pulse Ox O2 Delivery O2 Flow Rate FiO2 10/23/17 19:38 101 10/23/17 16:56 84 20 168/76 (106) 97 10/23/17 16:26 81 20 174/94 (120) 97 10/23/17 15:56 97.7 83 22 184/110 (134) 94 10/23/17 12:00 98.9 99 19 145/82 (103) 94 10/23/17 08:00 98.2 116 19 160/99 (119) 93 10/23/17 04:20 97.4 108 18 162/86 (111) 93 10/23/17 00:20 97.8 89 17 178/79 (112) 95 Physical Exam HEENT/Neuro: Pallor present, no icterus, tongue moist, LEVI, Awake alert oriented 3, nonfocal grossly, minimal tremors involving bilateral upper extremities, moving all 4 extremities Neck: No JVD Chest/pulmonary: CTA bilaterally Cardiovascular: S1-S2 irregularly irregular, no gallop or murmur GI/abdomen: Soft, nontender, bowel sounds present Extremities: Warm bilaterally, no edema Laboratory Laboratory Tests Test 10/23/17 07:35 10/23/17 14:30 10/23/17 21:10 Blood Urea Nitrogen 45 Creatinine 4.44 Random Glucose 88 Total Protein 6.9 Calcium Level 12.1 Sodium Level 142 Potassium Level 3.1 Chloride Level 109 Carbon Dioxide Level 20.6 Anion Gap 12 Estimat Glomerular Filtration Rate 13 Protein Corrected Calcium 12.3 White Blood Count 8.6 Red Blood Count 2.86 Hemoglobin 8.1 Bedside Hemoglobin 7.5 Hematocrit 24.4 Bedside Hematocrit 22.0 Mean Corpuscular Volume 85.2 Mean Corpuscular Hemoglobin 28.5 Mean Corpuscular Hemoglobin Concent 33.4 Red Cell Distribution Width 18.9 Platelet Count 181 Mean Platelet Volume 7.5 Neutrophils (%) (Auto) 76.6 Lymphocytes (%) (Auto) 8.8 Monocytes (%) (Auto) 6.5 Eosinophils (%) (Auto) 7.7 Basophils (%) (Auto) 0.4 Neutrophils # (Auto) 6.6 Lymphocytes # (Auto) 0.8 Monocytes # (Auto) 0.6 Eosinophils # (Auto) 0.7 Basophils # (Auto) 0.0 CBC Comment AUTO DIFF Differential Comment AUTO DIFF CONFIRMED Platelet Estimate NORMAL Platelet Morphology Comment NORMAL Ovalocytes 1+ Prothrombin Time 12.0 Prothromb Time International Ratio 1.2 Activated Partial Thromboplast Time 22.8 Fibrinogen 411 Bedside Sodium 143 Bedside Potassium 3.0 Bedside Chloride 107 Bedside Blood Urea Nitrogen 37 Bedside Creatinine 4.5 Bedside Glucose 118 Total Creatine Kinase 25 Troponin I 0.03 Date/Time Source Procedure Growth Status 10/19/17 12:30 Stool Stool Stool Occult Blood (NAOMI) - Final HEMOCCULT NEGATIVE Complete 10/19/17 12:30 Urine Clean Catch Urine Culture - Final NO GROWTH IN 48 HOURS. Complete Result Diagram: 10/23/17 2110 10/23/17 0735 Imaging Last Impressions Head CT 10/23/17 0000 Signed Impressions: CONCLUSION: 1. Atrophy. 2. No acute intracranial abnormality. Bone Biopsy CT 10/23/17 0000 Signed Impressions: CONCLUSION: 1. Uncomplicated CT guided bone marrow aspirate. 2. Uncomplicated CT guided bone marrow biopsy. Bone Osseous Survey 10/20/17 Signed Impressions: CONCLUSION: Ill-defined lucencies and patchy cortical thinning of multiple bones, primarily the long bones and especially the right tibia and fibula. Extensive multiple m yeloma could certainly have this appearance in the proper clinical setting. Renal Ultrasound 10/19/17 Signed Impressions: CONCLUSION: 1. Negative renal sonogram. Assessment and Plan Assessment and Plan 82 y/o male with Suspected ischemic stroke Uncontrolled hypertension History of atrial fibrillation anemia hypercalcemia acute renal failure. h/o MGUS chronic kidney disease hypothyroidism h/o colon cancer Plan: -Admit to ICU -Stroke alert called earlier and Dr. Saunders consulted for neurology. -Aspirin 325 mg p.o. stat followed by 81 mg p.o. daily -Resume anticoagulation tomorrow if okay with hematology following bone marrow biopsy done today. -Speech and swallow eval in a.m. -2D echo, carotid Dopplers and further stroke workup per neurology. -MRI brain in a.m. -Nicardipine gtt. to keep SBP below 210 systolic -Nephrology follow-up for acute renal failure -Hematology following for MGUS Patient will be transferred to hospitalist service for further medical management if his blood pressure remains under control tomorrow. Addendum: Patient refuses to take aspirin despite me talking to him about it. 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 I explained to him that he was transferred to the ICU for suspected ischemic stroke and that not taking the aspirin would increase his risk of recurrent strokes and he voiced understanding. Advised patient's nurse to call his as he wishes to speak to her. Rangel Savage MD Oct 23, 2017 23:09
[2017-10-23] MEDS ORDERED: ASPIRIN 81 MG CHEW TAB CHEW ONE (23:15)
[2017-10-23] MEDS ORDERED: LORazepam 2 MG/ML VIAL IV SCH (23:30)
[2017-10-24] VITALS (37 sets, daily range): BP systolic 102–225; BP diastolic 54–131; PULSE 82–130; RESP 14–33; TEMP 94.9–99.9; O2SAT 81–100
[2017-10-24] MEDS: LEVOTHYROXINE SODIUM 75 MCG TAB PO SCH (00:44)
[2017-10-24] MEDS: SODIUM BICARBONATE 650 MG TAB PO SCH (00:44)
[2017-10-24] MEDS: hydrALAZINE HCL 25 MG TAB PO SCH ×3 (00:44→21:16)
[2017-10-24] MEDS: SODIUM CHLOR 0.9% 1000 ML INJ 1,000 ML IV SCH ×2 (02:42→09:45)
[2017-10-24] MEDS: CHLORHEXIDINE GLUCONATE 2 % 1 PACK (2 CLOTHS)(taper/protocol) TOPICAL SCH (03:15)
[2017-10-24] MEDS: MORPHINE SULFATE 4 MG/ML INJ IV PRN (03:16)
[2017-10-24] MEDS: niCARdipine 25 MG/NS 250 ML Vial2Bag or IV room IV PRN ×4 (04:08→05:59)
[2017-10-24 04:59] LABS: AUTOMATED NEUTROPHIL # 8.7 TH/MM3 (1.8-7.7); BASOPHIL % 0.4 % (0.0-2.0); EOSINOPHIL % 8.7 % (0.0-4.0); HEMATOCRIT 28.6 % (39.0-51.0); HEMOGLOBIN 9.4 GM/DL (13.0-17.0); LYMPH % 9.2 % (9.0-44.0); LYMPHOCYTE # 1.1 TH/MM3 (1.0-4.8); MEAN CELL VOLUME 86.5 FL (80.0-100.0); MEAN CORPUSCULAR HEMOGLOBIN 28.5 PG (27.0-34.0); MEAN PLATELET VOLUME 7.3 FL (7.0-11.0); MONO % 6.6 % (0.0-8.0); MONOCYTE # 0.8 TH/MM3 (0-0.9); NEUT % 75.1 % (16.0-70.0); PLATELET COUNT 219 TH/MM3 (150-450); RED BLOOD COUNT 3.31 MIL/MM3 (4.50-5.90); RED CELL DISTRIBUTION WIDTH 19.5 % (11.6-17.2); WHITE BLOOD COUNT 11.6 TH/MM3 (4.0-11.0)
[2017-10-24 05:33] LABS: BICARBONATE 24.4 MEQ/L (21.0-32.0); CALCIUM 12.1 MG/DL (8.5-10.1); CREATININE 4.34 MG/DL (0.60-1.30)
[2017-10-24 05:53] LABS: TOTAL PROTEIN 7.5 GM/DL (6.4-8.2)
[2017-10-24 06:00] LABS: CALCIUM-PROTEIN CORRECTED 11.9 MG/DL (8.5-10.1)
[2017-10-24] MEDS: NALOXONE HCL 0.4 MG/ML AMP IV PUSH PRN ×2 (06:50→06:58)
[2017-10-24 07:06] LABS: BANDS 4 % (0-6); LYMPHOCYTES 7 % (9-44); METAMYELOCYTES 1 % (0-1); MONOCYTES 9 % (0-8); OVALOCYTES 1+ (NORMAL); POLYS (SEG NEUTROPHILS) 73 % (16-70)
[2017-10-24] MEDS ORDERED: ROCURONIUM INJ 50 MG/5 ML VIAL ONE (08:22)
[2017-10-24] MEDS ORDERED: ETOMIDATE 40 MG/20 ML VIAL ONE (08:22)
--- NOTE | 2017-10-24 09:11 | HHI.CCPN ---
Subjective Remarks/Hospital Course 10/23: Mr. Mcintosh is an 82-year-old male. He came in the hospital secondary to progressive anemia. Hemoglobin today is 6.9. He has a past history of bleed which was not found to be GI related. Additional findings today are acute renal failure and hypercalcemia. He recalls that he might have had some kidney disease in the past but cannot specify. Looking in our past records his highest creatinine value have been 3.5 but currently his creatinine levels at 5.11. She does not report being dehydrated. He has had a fracture approximately 3 months ago and has been on bedrest until recently for this. Additionally he is on Eliquis. Eliquis combined with his renal condition may be contributory to blood loss. Renal dysfunction can also be contributory to his hypercalcemia. Shortness of breath and weakness have been his primary complaints. Patient underwent bone marrow biopsy by interventional radiology on 10/23. Around 9 PM patient developed altered mental status with speech difficulty and questionable left-sided facial weakness. Stroke alert was called. Head CT done during stroke alert was negative for bleed. Dr. Saunders from neurology was contacted. Patient's blood pressure at that time was 218 systolic. She ordered a nicardipine drip and transferred patient to ICU with critical care consult. I evaluated patient following his arrival to the ICU. At that time patient appeared comfortable not in any acute distress. He was moving all 4 extremities at the time and was completely awake and alert and oriented. He did have some tremors in bilateral upper extremities however stated that he was feeling cold and shivering. 10/24: Patient did take his aspirin after talking to his last night. He did receive 0.5 mg Ativan last night for agitation and morphine around 4 AM for pain and subsequently this morning was noted to be lethargic. His O2 sats dropped and he was placed on nonrebreather facemask. His sats improved with IV Narcan however he was also getting hypothermic and bradycardic. I spoke with patient's at bedside as patient did not appear to be protecting his airway. I proceeded with endotracheal intubation and patient was placed on mechanical ventilation. He is awaiting MRI brain. Objective Vital Signs Date Time Temp Pulse Resp B/P (MAP) Pulse Ox O2 Delivery O2 Flow Rate FiO2 10/24/17 07:53 94 Non-Rebreather 15.00 10/24/17 06:38 100 10/24/17 05:59 126 187/76 10/24/17 04:00 99.9 24 Intake and Output 10/24/17 10/24/17 10/25/17 08:00 16:00 00:00 Output Total 250 ml Balance -250 ml Result Diagram: 10/24/17 0435 10/24/17 0435 Imaging Last Impressions Head CT 10/23/17 0000 Signed Impressions: CONCLUSION: 1. Atrophy. 2. No acute intracranial abnormality. Bone Biopsy CT 10/23/17 0000 Signed Impressions: CONCLUSION: 1. Uncomplicated CT guided bone marrow aspirate. 2. Uncomplicated CT guided bone marrow biopsy. Bone Osseous Survey 10/20/17 0000 Signed Impressions: CONCLUSION: Ill-defined lucencies and patchy cortical thinning of multiple bones, primarily the long bones and especially the right tibia and fibula. Extensive multiple m yeloma could certainly have this appearance in the proper clinical setting. Renal Ultrasound 10/19/17 0000 Signed Impressions: CONCLUSION: 1. Negative renal sonogram. Objective Remarks HEENT/ Neuro: Sedated, orally intubated, Pallor present, no icterus, tongue/ mucosa dry Neck: No JVD Chest/Pulm: on mech vent, good air entry bilaterally, no wheezing or crackles CVS: S1-S2 irregularly irregular, no murmur GI/abdomen: soft, nontender, bowel sounds sluggish Extremities: warm bilaterally, no edema Urinary Catheter: Yes Assessment to: Continue Mathis insert reason: Measure Accurate Output A/P Assessment and Plan 82 y/o male with Suspected ischemic stroke Encephalopathy Hypothermia Uncontrolled hypertension History of atrial fibrillation anemia hypercalcemia acute renal failure. h/o MGUS chronic kidney disease hypothyroidism h/o colon cancer Plan: Neuro -Stroke alert called earlier and Dr. Saunders consulted for neurology. -Aspirin 325 mg p.o. stat followed by 81 mg p.o. daily. -Resume anticoagulation if okay with hematology following bone marrow biopsy done today. -Intubated for airway protection. -2D echo, carotid Dopplers and further stroke workup per neurology. -MRI brain ordered. -Nicardipine gtt. to keep SBP below 210 systolic -Propofol for sedation with daily sedation medication. Follow neuro status Cardiovascular: -IV hydration, nicardipine gtt to keep SBP below 210 systolic. -Watch for hypotension. -Hold extended release Cardizem in view of bradycardia this morning. Hold metoprolol dose this morning. Pulmonary: -Intubated for airway protection and placed on mechanical ventilation -Vent bundle, bronchodilators as needed. -Daily CPAP trials starting tomorrow. GI/liver: -OG tube placed. Start tube feeds and advance to goal as tolerated Renal/: -IV hydration, strict intake output, monitor and replete electrolytes, follow BUN/creatinine. -Received pamidronate for hypercalcemia per nephrology on 10/23. -Hypercalcemia probably secondary to multiple myeloma. Follow calcium levels -Nephrology following Hemonc: -Being followed by oncology. Has known MGUS. Possible myeloma now. Awaiting bone marrow biopsy results which were done on 10/23. -Resume anticoagulation in view of history of A. fib and possible embolic CVA when okay with oncology. -Started on aspirin 10/23 ID: -Pancultures ordered. -Minimal aspiration noted during intubation. -We will initiate empiric antibiotic coverage with IV Zosyn and the of hypothermia and the worsening mental status. Endocrine: -Watch for hyperglycemia, SSI for glycemic control if needed Prophylaxis: -Pepcid/SCDs. Subcutaneous heparin if okay with neurology Discussed current clinical status with patient's earlier prior to intubation and she voiced understanding and was agreeable with plan including intubation. Condition critical Time spent on critical care excluding procedures 45 minutes Rangel Savage MD Oct 24, 2017 09:11
--- NOTE | 2017-10-24 09:18 | RADRPT ---
EXAM DATE: 10/24/2017 8:52 AM EDT AGE/SEX: 82 years / Male INDICATIONS: Post intubation. CLINICAL DATA: This is the patient's subsequent encounter. Patient reports that signs and symptoms h ave been present for 1 day and indicates a pain score of Nonresponsive. MEDICAL/SURGICAL HISTORY: . : Cardiovascular disease. Hypertension. Carcinoma, colon. None. COMPARISON: [facility] [place], 08/29/2017. . FINDINGS: Endotracheal tube and nasogastric tube are present in good position. There is consolidation and effus ion at the left lung base and mild perihilar infiltrate bilaterally. Cardiac contours are grossly sta ble. CONCLUSION: Satisfactory endotracheal tube positioning. Bilateral infiltrates. Small left effusion Electronically signed by: Armando Horta MD 10/24/2017 9:17 AM EDT
--- NOTE | 2017-10-24 09:27 | PD.PROCEDR ---
Procedure Note Procedure Procedure: Endotracheal intubation Preop diagnosis: Encephalopathy, acute resp failure, hypercalcemia Postop diagnosis: same Indication: Airway protection Sedation used: Etomidate 20 mg, rocuronium 50 mg IV Procedure: Patient was preoxygenated with 100% oxygen via Ambu bag with bag mask ventilation, following induction of sedation and neuromuscular blockade, direct laryngoscopy was performed using a Mac 4 blade however due to floppy epiglottis and vocal cords were not visualized. Attempted endotracheal intubation was unsuccessful. Patient was ventilated with bag mask ventilation once again and vocal cords were visualized using a glide scope. An 8 Niuean ET tube was passed through the vocal cords under direct visualization up to the 24 centimeter danii and after inflating cuff of ET tube, correct placement was confirmed using bagging with good color change on CO2 detector, 5 point auscultation and chest rise with ventilation. Patient was connected to mechanical ventilation. Patient tolerated the procedure well with no immediate complications noted. Postprocedure chest x-ray was ordered. Rangel Savage MD Oct 24, 2017 09:27
[2017-10-24] MEDS: ASPIRIN 81 MG CHEW TAB CHEW SCH (09:30)
[2017-10-24] MEDS: SODIUM CHLORIDE 0.9% FLUSH 10 ML FLUSH IV FLUSH SCH ×2 (09:30→21:17)
[2017-10-24] MEDS: SODIUM CHLORIDE 0.9% FLUSH 10 ML FLUSH IV FLUSH PRN (09:30)
[2017-10-24] MEDS: DOCUSATE SODIUM 100 MG CAP PO SCH ×2 (09:31→21:16)
[2017-10-24] MEDS: METOPROLOL TARTRATE 25 MG TAB PO SCH ×2 (09:31→21:16)
[2017-10-24] MEDS: CHOLECALCIFEROL (VIT D3) 1000 UNIT TAB PO SCH (09:31)
[2017-10-24] MEDS: MULTIVITAMIN TAB PO SCH (09:31)
[2017-10-24] MEDS: PROPOFOL 1000 MG/100 ML INJ 100 ML IV PRN ×3 (09:32→19:55)
[2017-10-24 09:50] LABS: AMORPHOUS SEDIMENT, URINE OCC; BACTERIA, URINE RARE /hpf; BILIRUBIN, URINE NEG (NEG); BLOOD, URINE TRACE (NEG); GLUCOSE,URINE NEG (NEG); KETONE, URINE NEG (NEG); MUCUS URINE FEW /lpf (OCC); NITRITE,URINE NEG (NEG); PH, URINE 6.5 (5.0-8.5); SQUAMOUS EPITHELIAL CELL URINE <1 /hpf (0-5); URINE COLOR LIGHT-YELLOW (YELLW/STRAW); URINE LEUKOCYTE ESTERASE NEG (NEG)
--- NOTE | 2017-10-24 09:59 | PD.CONS ---
History of Present Illness Service Neurology Consult Requested By medical Reason for Consult stroke/altered mental status Primary Care Physician Non-Staff History of Present Illness 82-year-old with complicated medical history being seen by hematology oncology for hypercalcemia, mgus also has history of DVT. had bone marrow biopsy performed yesterday. Overnight patient became hypoxic mental status changes. was hypertensive. Had a MRI brain scan performed which did not show any acute stroke. Limited history from patient medical chart reviewed information obtained. he is intubated and sedated. ROS - General Review of Systems Limited secondary to mental status PFSH Past Family Social History Past Medical History htn no prior hx of cad/chf/afib prior caesar secondary to nsaid in 2014 hypothyroidism colon cancer- diagnosed 1983- s/p resection, no chemo or radiation mgus chronic anemia Past Surgical History colon cancer resection laminectomy 3 hip sx 2 knee sx Family History sister- colon cancer Social History smokes pipes in the past quit no etoh abuse or drug abuse Review of Systems All other ROS: Unable to obtain Past Family Social History Allergies: Coded Allergies: No Known Allergies (Verified Allergy, Unknown, 06/24/17) Active Ordered Medications Current Medications Medications (Trade) Dose Ordered Sig/Reggie Route Start Time Stop Time Status Last Admin (NS Flush) 2 ml UNSCH PRN IV FLUSH 10/18/17 14:15 10/24/17 09:30 (NS Flush) 2 ml BID IV FLUSH 10/18/17 21:00 10/24/17 09:30 (Zofran Odt) 4 mg Q6H PRN PO 10/18/17 14:45 (Morphine Inj) 2 mg Q3H PRN IV 10/18/17 14:45 (Morphine Inj) 4 mg Q3H PRN IV 10/18/17 14:45 10/24/17 03:16 (Narcan Inj) 0.4 mg UNSCH PRN IV PUSH 10/18/17 14:15 10/24/17 06:58 (Milk Of Magnesia Liq) 30 ml Q12H PRN PO 10/18/17 14:15 10/21/17 08:17 (Vitamin D3) 2,000 units DAILY PO 10/19/17 09:00 10/24/17 09:31 (Synthroid) 75 mcg DAILY@0600 PO 10/19/17 06:00 10/23/17 05:51 (Theragran) 1 tab DAILY PO 10/19/17 09:00 10/24/17 09:31 (Pill Splitter) 1 ea UNSCH PRN OTHER 10/18/17 15:45 (Colace) 100 mg BID PO 10/18/17 21:00 10/24/17 09:31 (Catapres) 0.1 mg Q6H PRN PO 10/18/17 18:30 10/21/17 15:54 (Lopressor) 25 mg BID PO 10/19/17 21:00 10/24/17 09:31 Sodium Chloride 1,000 ml @ 150 mls/hr Q6H40M IV 10/19/17 10:00 10/24/17 09:45 (Cardizem Cd) 240 mg DAILY PO 10/20/17 09:00 Future Hold 10/23/17 10:42 (Apresoline) 50 mg Q8HR PO 10/21/17 22:00 10/23/17 05:51 (Sodium Bicarbonate) 650 mg Q8HR PO 10/21/17 22:00 10/23/17 05:51 Nicardipine HCl 25 mg/Sodium Chloride 260 ml @ 52 mls/hr TITRATE PRN IV 10/23/17 22:30 10/24/17 05:59 ([facility] [place] Nursing Information) Patient in critical care unit? Ass... Q361D .XX 10/23/17 23:00 10/23/17 23:00 (Chlorhexidine 2% Cloth) 3 pack DAILY@04 TOPICAL 10/24/17 04:00 10/28/17 04:01 (Chlorhexidine 2% Cloth) 3 pack UNSCH PRN TOPICAL 10/23/17 23:00 10/28/17 22:47 (Aspirin Chew) 81 mg DAILY CHEW 10/24/17 09:00 10/24/17 09:30 (Peridex 0.12% Liq) 15 ml BID@08,20 MT 10/24/17 20:00 Propofol 100 ml @ 3.27 mls/hr TITRATE PRN IV 10/24/17 08:45 10/24/17 09:32 Piperacillin Sod/ Tazobactam Sod 50 ml @ 100 mls/hr Q6H IV 10/24/17 10:00 (Pepcid) 10 mg BID PO 6/7/18 09:45 UNV Exam I&O / VS Vital Signs Date Time Temp Pulse Resp B/P (MAP) Pulse Ox O2 Delivery O2 Flow Rate FiO2 10/24/17 09:45 98 70 10/24/17 09:18 99 70 10/24/17 07:53 94 Non-Rebreather 15.00 10/24/17 06:38 98 Non-Rebreather 15.00 100 10/24/17 05:59 126 187/76 10/24/17 04:08 128 223/92 10/24/17 04:00 128 10/24/17 04:00 99.9 128 24 218/98 (138) 97 10/24/17 03:00 127 30 195/112 (139) 99 10/24/17 02:45 126 22 81 10/24/17 02:34 123 20 198/99 (132) 96 10/24/17 02:33 123 19 225/93 (137) 94 10/24/17 02:31 122 20 213/95 (134) 95 10/24/17 02:30 123 20 96 10/24/17 02:26 124 21 187/93 (124) 96 10/24/17 02:24 125 21 207/120 (149) 93 10/24/17 02:15 130 32 10/24/17 02:08 98 Simple Mask 7.00 10/24/17 02:00 129 33 171/123 (139) 98 10/24/17 01:45 125 20 93 10/24/17 01:31 124 22 191/88 (122) 89 10/24/17 01:30 124 20 93 10/24/17 01:15 124 21 87 10/24/17 01:10 123 19 204/85 (124) 92 10/24/17 01:00 122 20 218/99 (138) 87 10/24/17 00:45 127 27 93 10/24/17 00:31 126 29 150/100 (117) 93 10/24/17 00:30 123 22 188/131 (150) 93 10/24/17 00:00 120 10/24/17 00:00 99.2 125 14 185/97 (126) 95 10/23/17 23:00 99.3 125 20 152/79 (103) 97 10/23/17 21:37 94 18 218/88 (131) 95 10/23/17 21:15 105 20 188/97 (127) 94 10/23/17 21:11 100 10/23/17 21:00 99.3 102 18 192/75 (114) 94 10/23/17 20:11 101 10/23/17 19:38 101 10/23/17 16:56 84 20 168/76 (106) 97 10/23/17 16:26 81 20 174/94 (120) 97 10/23/17 15:56 97.7 83 22 184/110 (134) 94 10/23/17 12:00 98.9 99 19 145/82 (103) 94 Exam Comments intubated, sedated on propofol at 40. coma state, ou approx 1.5mm sluggish, no involuntary movements Review/Management Diagnosis/Plan: (1) Acute encephalopathy ICD Codes: G93.40 - Encephalopathy, unspecified Status: Acute Plan: etiology: htn surge/reaction to anesthetic/resp failure 2/2 aspiration? cxr- infiltrates mri brain- no acute infarct. mri cspine- no cord lesion recs medical management ok to start anticoagulation from neuro. d/w rn to contact ccm/heme in critical condition (2) Acute respiratory failure ICD Codes: J96.00 - Acute respiratory failure, unspecified whether with hypoxia or hypercapnia Status: Acute (3) Atrial fibrillation ICD Codes: I48.91 - Unspecified atrial fibrillation (4) Acute renal failure ICD Codes: N17.9 - Acute kidney failure, unspecified Status: Acute Problem Qualifiers (1) Acute respiratory failure: Qualified Codes: J96.01 - Acute respiratory failure with hypoxia Colby León MD Oct 24, 2017 09:59
[2017-10-24] MEDS ORDERED: DOPamine 400 MG/250 ML INJ 250 ML ONE (10:55)
[2017-10-24] MEDS ORDERED: TERBUTALINE INJ 1 MG/ML AMP SQ PRN ×2 (11:00→11:15)
[2017-10-24] MEDS ORDERED: FAMOTIDINE 20 MG TAB PO SCH (11:00)
[2017-10-24] MEDS ORDERED: DOPamine 800 MG/500 ML INJ 500 ML IV PRN (11:00)
--- NOTE | 2017-10-24 11:10 | PD.ONC.PN ---
Subjective Subjective Remarks Tmax 99.9 overnight. Patient became hypoxic this AM and was intubated. He is pending an MRI this morning. was given Aredia last night for hypercalcemia with extensive bone mets. Objective Data Date Time Temp Pulse Resp B/P (MAP) Pulse Ox O2 Delivery O2 Flow Rate FiO2 10/24/17 09:45 98 70 10/24/17 09:18 99 70 10/24/17 07:53 94 Non-Rebreather 15.00 10/24/17 06:38 98 Non-Rebreather 15.00 100 10/24/17 05:59 126 187/76 10/24/17 04:08 128 223/92 10/24/17 04:00 128 10/24/17 04:00 99.9 128 24 218/98 (138) 97 10/24/17 03:00 127 30 195/112 (139) 99 10/24/17 02:45 126 22 81 10/24/17 02:34 123 20 198/99 (132) 96 10/24/17 02:33 123 19 225/93 (137) 94 10/24/17 02:31 122 20 213/95 (134) 95 10/24/17 02:30 123 20 96 10/24/17 02:26 124 21 187/93 (124) 96 10/24/17 02:24 125 21 207/120 (149) 93 10/24/17 02:15 130 32 10/24/17 02:08 98 Simple Mask 7.00 10/24/17 02:00 129 33 171/123 (139) 98 10/24/17 01:45 125 20 93 10/24/17 01:31 124 22 191/88 (122) 89 10/24/17 01:30 124 20 93 10/24/17 01:15 124 21 87 10/24/17 01:10 123 19 204/85 (124) 92 10/24/17 01:00 122 20 218/99 (138) 87 10/24/17 00:45 127 27 93 10/24/17 00:31 126 29 150/100 (117) 93 10/24/17 00:30 123 22 188/131 (150) 93 10/24/17 00:00 120 10/24/17 00:00 99.2 125 14 185/97 (126) 95 10/23/17 23:00 99.3 125 20 152/79 (103) 97 10/23/17 21:37 94 18 218/88 (131) 95 10/23/17 21:15 105 20 188/97 (127) 94 10/23/17 21:11 100 10/23/17 21:00 99.3 102 18 192/75 (114) 94 10/23/17 20:11 101 10/23/17 19:38 101 10/23/17 16:56 84 20 168/76 (106) 97 10/23/17 16:26 81 20 174/94 (120) 97 10/23/17 15:56 97.7 83 22 184/110 (134) 94 10/23/17 12:00 98.9 99 19 145/82 (103) 94 10/24/17 10/24/17 10/24/17 07:00 15:00 23:00 Output Total 250 ml Balance -250 ml Result Diagram: 10/24/17 0435 10/24/17 0435 Laboratory Results Laboratory Tests Test 10/23/17 14:30 10/23/17 21:10 10/23/17 22:35 10/24/17 04:35 White Blood Count 8.6 TH/MM3 11.6 TH/MM3 Red Blood Count 2.86 MIL/MM3 3.31 MIL/MM3 Hemoglobin 8.1 GM/DL 9.4 GM/DL Bedside Hemoglobin 7.5 G/DL Hematocrit 24.4 % 28.6 % Bedside Hematocrit 22.0 % Mean Corpuscular Volume 85.2 FL 86.5 FL Mean Corpuscular Hemoglobin 28.5 PG 28.5 PG Mean Corpuscular Hemoglobin Concent 33.4 % 33.0 % Red Cell Distribution Width 18.9 % 19.5 % Platelet Count 181 TH/MM3 219 TH/MM3 Mean Platelet Volume 7.5 FL 7.3 FL Neutrophils (%) (Auto) 76.6 % 75.1 % Lymphocytes (%) (Auto) 8.8 % 9.2 % Monocytes (%) (Auto) 6.5 % 6.6 % Eosinophils (%) (Auto) 7.7 % 8.7 % Basophils (%) (Auto) 0.4 % 0.4 % Neutrophils # (Auto) 6.6 TH/MM3 8.7 TH/MM3 Lymphocytes # (Auto) 0.8 TH/MM3 1.1 TH/MM3 Monocytes # (Auto) 0.6 TH/MM3 0.8 TH/MM3 Eosinophils # (Auto) 0.7 TH/MM3 1.0 TH/MM3 Basophils # (Auto) 0.0 TH/MM3 0.0 TH/MM3 CBC Comment AUTO DIFF AUTO DIFF Differential Comment AUTO DIFF CONFIRMED FINAL DIFF MANUAL Platelet Estimate NORMAL NORMAL Platelet Morphology Comment NORMAL NORMAL Ovalocytes 1+ 1+ Prothrombin Time 12.0 SEC Prothromb Time International Ratio 1.2 RATIO Activated Partial Thromboplast Time 22.8 SEC Fibrinogen 411 mg/dL Bedside Sodium 143 MMOL/L Bedside Potassium 3.0 MMOL/L Bedside Chloride 107 MMOL/L Bedside Blood Urea Nitrogen 37 MG/DL Bedside Creatinine 4.5 MG/DL Bedside Glucose 118 MG/DL Total Creatine Kinase 25 U/L Troponin I 0.03 NG/ML Nasal Screen MRSA (PCR) MRSA NOT DETECTED Differential Total Cells Counted 100 Neutrophils % (Manual) 73 % Band Neutrophils % 4 % Lymphocytes % 7 % Monocytes % 9 % Eosinophils % 6 % Neutrophils # (Manual) 9.0 TH/MM3 Metamyelocytes 1 % Blood Urea Nitrogen 41 MG/DL Creatinine 4.34 MG/DL Random Glucose 101 MG/DL Total Protein 7.5 GM/DL Calcium Level 12.1 MG/DL Magnesium Level 2.0 MG/DL Sodium Level 146 MEQ/L Potassium Level 3.1 MEQ/L Chloride Level 110 MEQ/L Carbon Dioxide Level 24.4 MEQ/L Anion Gap 12 MEQ/L Estimat Glomerular Filtration Rate 13 ML/MIN Protein Corrected Calcium 11.9 MG/DL Test 10/24/17 09:00 10/24/17 09:25 Urine Color LIGHT-YELLOW Urine Turbidity CLEAR Urine pH 6.5 Urine Specific [place] 1.008 Urine Protein 30 mg/dL Urine Glucose (UA) NEG mg/dL Urine Ketones NEG mg/dL Urine Occult Blood TRACE Urine Nitrite NEG Urine Bilirubin NEG Urine Urobilinogen LESS THAN 2.0 MG/DL Urine Leukocyte Esterase NEG Urine RBC 1 /hpf Urine WBC 1 /hpf Urine Squamous Epithelial Cells <1 /hpf Urine Amorphous Sediment OCC Urine Bacteria RARE /hpf Urine Mucus FEW /lpf Microscopic Urinalysis Comment CATH-CULTURE IND Blood Gas Puncture Site RT RADIAL Blood Gas Patient Temperature 98.6 Blood Gas HCO3 26 mmol/L Blood Gas Base Excess -1.3 mmol/L Blood Gas Oxygen Saturation 94 % Arterial Blood pH 7.18 Arterial Blood Partial Pressure CO2 72 mmHg Arterial Blood Partial Pressure O2 105 mmHg Arterial Blood Oxygen Content 12.6 Vol % Arterial Blood Carboxyhemoglobin 0.6 % Arterial Blood Methemoglobin 1.6 % Blood Gas Hemoglobin 9.4 G/DL Oxygen Delivery Device VENTILATOR Blood Gas Ventilator Setting SEE COMMENTS Culture Results Microbiology Date/Time Source Procedure Growth Status 10/24/17 09:11 Sputum Endotracheal Gram Stain Pending Received 10/24/17 09:11 Sputum Endotracheal Sputum Culture Pending Received 10/24/17 09:00 Urine Catheterized Urine Urine Culture Pending Received Imaging Studies Last 24 hours Impressions Chest X-Ray 10/24/17 0000 Signed Impressions: CONCLUSION: Satisfactory endotracheal tube positioning. Bilateral infiltrates. Small left e ffusion Administered Medications Medications (Trade) Dose Ordered Sig/Reggie Route PRN Reason Start Time Stop Time Status Last Admin Dose Admin Sodium Chloride (NS Flush) 2 ml UNSCH PRN IV FLUSH FLUSH AFTER USING IV ACCESS 10/18/17 14:15 10/24/17 09:30 Sodium Chloride (NS Flush) 2 ml BID IV FLUSH 10/18/17 21:00 10/24/17 09:30 Morphine Sulfate (Morphine Inj) 4 mg Q3H PRN IV Pain 6-10;if unable to take PO 10/18/17 14:45 10/24/17 03:16 Naloxone HCl (Narcan Inj) 0.4 mg UNSCH PRN IV PUSH SEE LABEL COMMENTS 10/18/17 14:15 10/24/17 06:58 Magnesium Hydroxide (Milk Of Magnora Liq) 30 ml Q12H PRN PO Mild constipation 10/18/17 14:15 10/21/17 08:17 Cholecalciferol (Vitamin D3) 2,000 units DAILY PO 10/19/17 09:00 10/24/17 09:31 Levothyroxine Sodium (Synthroid) 75 mcg DAILY@0600 PO 10/19/17 06:00 10/23/17 05:51 Multivitamins (Theragran) 1 tab DAILY PO 10/19/17 09:00 10/24/17 09:31 Docusate Sodium (Colace) 100 mg BID PO 10/18/17 21:00 10/24/17 09:31 Clonidine (Catapres) 0.1 mg Q6H PRN PO SBP>160, DBP>90 6/1/18 18:30 10/21/17 15:54 Metoprolol Tartrate (Lopressor) 25 mg BID PO 10/19/17 21:00 10/24/17 09:31 Sodium Chloride 1,000 ml @ 150 mls/hr Q6H40M IV 10/19/17 10:00 10/24/17 09:45 Diltiazem HCl (Cardizem Cd) 240 mg DAILY PO 10/20/17 09:00 Future Hold 10/23/17 10:42 Hydralazine HCl (Apresoline) 50 mg Q8HR PO 10/21/17 22:00 10/23/17 05:51 Sodium Bicarbonate (Sodium Bicarbonate) 650 mg Q8HR PO 10/21/17 22:00 10/23/17 05:51 Nicardipine HCl 25 mg/Sodium Chloride 260 ml @ 52 mls/hr TITRATE PRN IV Blood Pressure Management 10/23/17 22:30 10/24/17 05:59 Miscellaneous Information ([facility] [place] Nursing Information) Patient in critical care unit? Ass... Q361D .XX 10/23/17 23:00 10/23/17 23:00 Aspirin (Aspirin Chew) 81 mg DAILY CHEW 10/24/17 09:00 10/24/17 09:30 Propofol 100 ml @ 3.27 mls/hr TITRATE PRN IV SEDATION 10/24/17 08:45 10/24/17 09:32 Objective Remarks GENERAL: intubated, sedated male supine in bed. RT at bedside performing ABG. on mechanical ventilation. SKIN: Warm and dry. HEAD: Normocephalic. EYES: No scleral icterus. No injection or drainage. NECK: Supple, trachea midline. CARDIOVASCULAR: +S1/S2, tachy RESPIRATORY: on mechanical ventilation. anterior gutierrez clear. GASTROINTESTINAL: Abdomen nondistended. EXTREMITIES: No cyanosis NEUROLOGICAL: intubated, sedated Assessment/Plan Assessment 82y/o male with anemia, hypercalcemia, and acute renal failure. h/o MGUS, hypertension, chronic kidney disease, hypothyroidism, colon cancer, anemia. Plan 1. 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 --urine protein=~3g --KoI=[id number] --abnormal discrete band in gamma region noted. --awaiting bone marrow result --s/p Aredia 60mg on 10/23 2. Atrial fibrillation and history of left lower extremity deep venous thrombosis. will need to start heparin therapy after MRI brain returns today. cannot resume Eliquis d/t poor renal function and intubation 3. Respiratory failure: may be combination of renal insufficiency, hypercalcemia as well as medications given. sepsis and stroke are also in the differential. Attending Statement The exam, history, and the medical decision-making described in the above note were completed with the assistance of the mid-level provider. I reviewed and agree with the findings presented. I attest that I had a [id number] encounter with the patient on the same day, and personally performed and documented my assessment and findings in the medical record. IGG kappa gammopathy BM bx results pending acutely decompensated after BM bx last night supportive care Skylar Sanchez Oct 24, 2017 11:10 Chandler Love MD Oct 24, 2017 23:47
[2017-10-24] MEDS ORDERED: PHENYLEPHRINE INJ 40 MG in DEXTROSE 5% IN WATE 500 ML INJ 496 ML IV PRN ×2 (11:15)
--- NOTE | 2017-10-24 11:22 | RADRPT ---
EXAM DATE: 10/24/2017 11:08 AM EDT AGE/SEX: 82 years / Male INDICATIONS: CVA. CLINICAL DATA: This is the patient's initial encounter. Patient reports that signs and symptoms have been present for 1 day and indicates a pain score of 0/10. MEDICAL/SURGICAL HISTORY: Hypertension. Carcinoma, colon. Colon resection. Bilateral total kne e replacement and laminectomy. COMPARISON: No prior exams available for comparison. TECHNIQUE: Multiplanar, multisequence examination of the brain was performed without contrast. FINDINGS: Cerebrum: The ventricles are normal for age. No evidence of midline shift, mass lesion, hemorrhage or acute infarction. No extraaxial fluid collections are seen. The pituitary gland and suprasellar cistern are normal in configuration. White Matter: No significant signal abnormalities are seen in the white matter. Posterior Fossa: The cerebellum and brainstem are intact. The 4th ventricle is midline. The cerebel lopontine angle is unremarkable. The cerebellar tonsils are normal in position. Diffusion Imaging: No focal areas of restricted diffusion are seen. No evidence of acute infarction . Extracranial: The visualized portions of the orbits and paranasal sinuses are unremarkable. CONCLUSION: Negative MR Brain non contrast. Electronically signed by: Armando Horta MD 10/24/2017 11:21 AM EDT
--- NOTE | 2017-10-24 11:26 | RADRPT ---
EXAM DATE: 10/24/2017 11:07 AM EDT AGE/SEX: 82 years / Male INDICATIONS: CVA. CLINICAL DATA: This is the patient's initial encounter. Patient reports that signs and symptoms have been present for 1 day and indicates a pain score of 0/10. MEDICAL/SURGICAL HISTORY: Carcinoma, colon. Hypertension. Colon resection. Bilateral total kne e replacement and laminectomy. COMPARISON: No prior exams available for comparison. TECHNIQUE: 3D [id number] MRA was performed. Source images, multiplanar STS MIP, and 3D volum e MIP reconstructions were reviewed. FINDINGS: There is excellent visualization of the major intracranial arteries out to the second-order branch ve ssels. There is no evidence for aneurysm, vessel truncation or stenosis, and no evidence for vascula r malformation. CONCLUSION: Negative MRA [place] ([place] [facility] [place]) non contrast. Electronically signed by: Armando Horta MD 10/24/2017 11:24 AM EDT
--- NOTE | 2017-10-24 11:37 | RADRPT ---
EXAM DATE: 10/24/2017 11:22 AM EDT AGE/SEX: 82 years / Male INDICATIONS: Radiculopathy. CLINICAL DATA: This is the patient's initial encounter. Patient reports that signs and symptoms have been present for 1 day and indicates a pain score of 0/10. MEDICAL/SURGICAL HISTORY: Carcinoma, colon. Hypertension. Colon resection. Laminectomy and darwin ateral total knee replacement. COMPARISON: No prior exams available for comparison. TECHNIQUE: Multiplanar, multisequence MRI examination of the cervical spine was performed without co ntrast. 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 1.6 x 0.9 cm lesion involving the spinous proc ess of T2. This is low in signal on T1 and modestly high in signal on T2. Normal vertebral body heigh t. Homogeneous marrow signal. Alignment: Normal. Cord: There is a slight increase in T2 signal within the central portion of the cord at the C3-C4 le jah. No mass.. Post Fossa: The cerebellar tonsils are normal in position. C2-C3: Disc desiccation. A minimal broad-based bulge. No abutment of the cord or central canal steno sis. Neural foramina are patent bilaterally. C3-C4: Disc desiccation and mild disc space narrowing. A broad-based disc bulge eccentric to the lef t flattens the ventral portion of the cord the anterior to posterior dimension of the central canal t he midline is 4 mm. Prominent bony uncovertebral hypertrophy generates bilateral high-grade neural fo raminal narrowing. C4-C5: Disc desiccation with a broad-based disc bulge that flattens the ventral portion of the cord. Central canal measures 7 mm in the midline. Bony uncovertebral hypertrophy generates moderate bilate ral neural foraminal narrowing. C5-C6: This level is fused. The central canal is patent. Bony uncovertebral hypertrophy generates hi gh grade bilateral neural foraminal narrowing.. C6-C7: This level is fused. The central canal is patent. Bony uncovertebral hypertrophy generates hi gh grade bilateral neural foraminal narrowing... C7-T1: No epidural impressions seen. CONCLUSION: 1. 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 2. 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 3. Multilevel significant neural foraminal narrowing as detailed at each level in the above discussi on. 4. Lesion involving the spinous process of T2. This is incompletely characterized on this exam. Cons ider CT scan to further assess. Electronically signed by: Mason Montes De Oca MD 10/24/2017 11:36 AM EDT
[2017-10-24] MEDS: PIPERACIL-TAZO 2.25 GM PREMIX 50 ML IV SCH ×3 (11:58→21:22)
--- NOTE | 2017-10-24 12:07 | RADRPT ---
EXAM DATE: 10/24/2017 11:49 AM EDT AGE/SEX: 82 years / Male INDICATIONS: Stroke. CLINICAL DATA: This is the patient's initial encounter. Patient reports that signs and symptoms have been present for 1 day and indicates a pain score of 0/10. MEDICAL/SURGICAL HISTORY: Carcinoma, colon. Hypertension. Colon resection. Bilaterla total kne e replacement. COMPARISON: No prior exams available for comparison. TECHNIQUE: 3D time-of- flight MRA of the extracranial circulation was performed using a neurovascul ar coil. Post processing was performed including rotating sub-volume maximum intensity projections o f each carotid artery, rotating full-volume maximum intensity projections of both carotid arteries, s agittal and coronal sliding thin-slab reformations of each carotid artery, and left oblique sliding t hin-slab reformation through the aortic arch to include the origin of the arch branch vessels. FINDINGS: Classical three-vessel arch anatomy is identified. The arch vessels are widely patent. The carotids a re widely patent bilaterally. No evidence of significant stenotic disease at the bifurcation on eithe r side. The vertebral arteries are symmetric, patent and normal in appearance. CONCLUSION: Normal study Percent stenosis is calculated using the diameter of the stenotic region over the diameter of the nor mal distal internal carotid artery Electronically signed by: Armando Horta MD 10/24/2017 12:06 PM EDT
--- NOTE | 2017-10-24 12:53 | HHI.NPPN ---
Subjective History of Present Illness The patient is an 82 yo [place] male who presented to this facility on 10/18/17 at the urge of his primary health organisation manager and PCP for anemia. He has been having some fatigue and weakness over the past few weeks and a CBC showed a Hgb of 7.2 prompting evaluation at the hospital. The patient's is the primary historian. Was admitted here in Jun for a L femur fx that he sustained at home while turning while moving TV tray causing a twist and fall type injury on his left leg. reports spiral fracture of his left femur that he underwent ORIF. He subsequently developed a DVT in the same leg. Renal functions during that admission were overall normal with SCr at 0.8 baseline. Serum calcium normal at this admission at 8.6-9.0. In August, he developed A fib with RVR and had acute renal insufficiency though nephrology services were not called as his functions improved with correction of RVR (admitting SCr 2.40 on 08/29 and discharge on 09/01 at 1.74). Noted mild hypercalcemia during this admission at 10.7. 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 Byrne, but was many years ago as per the . Says that he never underwent bone marrow bx, but had multiple labs that "didn't change" so they opted to stop following up. Given his recent anemia, his PCP did refer him to Dr. Jordyn Garcia, but appointment not until November. No known CKD hx. Denies any recent NVD No NSAID use No recent abx. Besides the aforementioned health history as of recent, he has been in his usual state of health as per his . Has been on Calcium 600mg with 500IU Vitamin D, with an additional Vitamin D3 1000IU daily since his femur fx. Admitting SCr 2.11 that has improved to 4.47 at consult. Serum CCa 12.9 at admission Interval History Events noted overnight also mental status post bone marrow. There was a question of a CVA however noted that MR of brain apparently showed no evidence of same. Review of Systems General Constitutional: Fatigue Objective Data Data Vital Signs Date Time Temp Pulse Resp B/P (MAP) Pulse Ox O2 Delivery O2 Flow Rate FiO2 10/24/17 11:50 94 70 10/24/17 11:50 100 100 10/24/17 09:45 98 70 10/24/17 09:18 99 70 10/24/17 07:53 94 Non-Rebreather 15.00 10/24/17 06:38 98 Non-Rebreather 15.00 100 10/24/17 05:59 126 187/76 10/24/17 04:08 128 223/92 10/24/17 04:00 128 10/24/17 04:00 99.9 128 24 218/98 (138) 97 10/24/17 03:00 127 30 195/112 (139) 99 10/24/17 02:45 126 22 81 10/24/17 02:34 123 20 198/99 (132) 96 10/24/17 02:33 123 19 225/93 (137) 94 10/24/17 02:31 122 20 213/95 (134) 95 10/24/17 02:30 123 20 96 10/24/17 02:26 124 21 187/93 (124) 96 10/24/17 02:24 125 21 207/120 (149) 93 10/24/17 02:15 130 32 10/24/17 02:08 98 Simple Mask 7.00 10/24/17 02:00 129 33 171/123 (139) 98 10/24/17 01:45 125 20 93 10/24/17 01:31 124 22 191/88 (122) 89 10/24/17 01:30 124 20 93 10/24/17 01:15 124 21 87 10/24/17 01:10 123 19 204/85 (124) 92 10/24/17 01:00 122 20 218/99 (138) 87 10/24/17 00:45 127 27 93 10/24/17 00:31 126 29 150/100 (117) 93 10/24/17 00:30 123 22 188/131 (150) 93 10/24/17 00:00 120 10/24/17 00:00 99.2 125 14 185/97 (126) 95 10/23/17 23:00 99.3 125 20 152/79 (103) 97 10/23/17 21:37 94 18 218/88 (131) 95 10/23/17 21:15 105 20 188/97 (127) 94 10/23/17 21:11 100 10/23/17 21:00 99.3 102 18 192/75 (114) 94 10/23/17 20:11 101 10/23/17 19:38 101 10/23/17 16:56 84 20 168/76 (106) 97 10/23/17 16:26 81 20 174/94 (120) 97 10/23/17 15:56 97.7 83 22 184/110 (134) 94 -: 10/24/17 0435 10/24/17 0435 Microbiology 10/24/17 Gram Stain, Received Pending 10/24/17 Sputum Culture, Received Pending 10/24/17 Urine Culture, Received Pending Physical Exam General Appearance: Well Developed, Well Nourished, No Acute Distress, Comfortable Eyes Eye Exam: Sclera White Pulmonary Resp Exam: Clear Bilaterally, Breath Sounds Equal, No Distress Cardiology CV Exam: Regular, Normal Sinus Rhythm Gastrointestinal/Abdomen GI Exam: Soft, Non-Tender Genitourinary Exam: Clear Urine Integumentary Skin Exam: Clear, Warm Extremeties Extremities Exam: Trace Edema (BLE) Neurologic Neuro Exam: Awake, Speech Clear, Moving All Extremities Psychiatric Psych Exam: Appropriate Responses Assessment/Plan Discussed Condition With: Spouse Problem List: (1) Acute renal failure ICD Codes: N17.9 - Acute kidney failure, unspecified Status: Acute Plan: Patient's creatinine level is improving albeit very slowly. Continue to monitor. No indication to initiate dialysis at this time given good urinary output and improving renal indices. 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 Bone marrow result pending however. Medications should be adjusted for the patient's renal decline. Avoid nephrotoxic agents such as iodinated contrast dyes and NSAIDs. Avoid gadolinium. (2) Hypercalcemia ICD Codes: E83.52 - Hypercalcemia Status: Acute Plan: Calcium level was rebounding despite IV normal saline and calcitonin. Reduce dosage of pamidronate given. Should see improvement in calcium level in the next 24-48 hours. (3) Hypokalemia ICD Codes: E87.6 - Hypokalemia Plan: Potassium chloride ordered. Follow-up potassium level tomorrow. (4) Atrial fibrillation ICD Codes: I48.91 - Unspecified atrial fibrillation Plan: Management as per primary team (5) HTN (hypertension) ICD Codes: I10 - Essential (primary) hypertension Status: Chronic Plan: Continue current regimen Given PRN Labetalol and Clonidine today. Will adjust further tomorrow if needed. (6) Hypernatremia ICD Codes: E87.0 - Hyperosmolality and hypernatremia Status: Acute Plan: At this point in time will discontinue normal saline and continue with half normal saline. Calcium level will hopefully improve with pamidronate at this point. Plan Uncertain as etiology of altered mental status. No evidence of an acute cerebrovascular event as yet. Neurology is following. indicates he has had issues regarding anesthesia in the past and he was sedated for the bone marrow yesterday.. Juan Ramon Carlson MD Oct 24, 2017 12:53
[2017-10-24] MEDS ORDERED: POTASSIUM CHLOR 20 MEQ PREMIX 100 ML IV ONE (13:00)
[2017-10-24] MEDS ORDERED: SODIUM CHLOR 0.9% 1000 ML INJ 2,000 ML IV ONE (13:00)
[2017-10-24] MEDS: SODIUM CHLOR 0.45% 1000 ML INJ 1,000 ML IV SCH ×2 (13:55→23:19)
[2017-10-24 14:14] LABS: BASOPHIL # 0.1 TH/MM3 (0-0.2); BASOPHIL % 0.8 % (0.0-2.0); EOSINOPHIL # 0.2 TH/MM3 (0-0.4); EOSINOPHIL % 3.4 % (0.0-4.0); HEMATOCRIT 26.7 % (39.0-51.0); HEMOGLOBIN 8.9 GM/DL (13.0-17.0); LYMPHOCYTE # 0.6 TH/MM3 (1.0-4.8); MEAN CELL VOLUME 86.8 FL (80.0-100.0); MEAN CORPUSCULAR HEMOGLOBIN 28.8 PG (27.0-34.0); MEAN CORPUSCULAR HGB CONC 33.2 % (32.0-36.0); MEAN PLATELET VOLUME 7.6 FL (7.0-11.0); MONO % 2.5 % (0.0-8.0); MONOCYTE # 0.2 TH/MM3 (0-0.9); NEUT % 85.3 % (16.0-70.0); PLATELET COUNT 173 TH/MM3 (150-450); RED BLOOD COUNT 3.08 MIL/MM3 (4.50-5.90); RED CELL DISTRIBUTION WIDTH 19.8 % (11.6-17.2); WHITE BLOOD COUNT 7.1 TH/MM3 (4.0-11.0)
[2017-10-24 14:30] LABS: INTERNATIONAL NORMALIZED RATIO 1.2 RATIO; PROTHROMBIN TIME - PATIENT 11.7 SEC (9.8-11.6)
--- NOTE | 2017-10-24 14:44 | PD.CONS ---
HPI History of Present Illness This is a 82 year old M with PMH significant for HTN, DM, history of DVT, a fib on Eliquis prior to arrival, hypothyroid, colon cancer S/P resection, chronic anemia, MUGUS, and previous ZOFIA who presented to the ER on 10/18 for work up of anemia. Hematology is following and pt underwent bone marrow biopsy yesterday. Pt is currently sedated and intubated so all history was obtained through chart review. Pt had labs done a week prior to admission by his public speaking professor, states the office called him and told him to go the ER because of a hgb of 7.2. According to ER notes he denied any obvious source of GIB, however our service has been consulted because pt is having coffee ground emesis from his OG tube. Pt was transferred to ICU last night, he underwent bone marrow biopsy yesterday and around 9 at night became altered, stroke alert was called, CT head negative for bleed. According to RN pt received Ativan and Morphine this morning, became unarousable, Narcan was given and pt was intubated due to dropping O2 sats. (Hawa Andrade) PFSH Past Medical History HTN A fib ZOFIA Hypothyroidism Colon cancer- diagnosed 1983- s/p resection, no chemo or radiation MUGUS- about 5 yrs ago Chronic anemia Past Surgical History colon cancer resection laminectomy 3 hip sx 2 knee sx (Hawa Andrade) Coded Allergies: No Known Allergies (Verified Allergy, Unknown, 06/24/17) Family History sister- colon cancer Social History smokes pipes in the past quit no etoh abuse or drug abuse (Hawa Andrade) Review of Systems Unable to obtain (Hawa Andrade) GI Exam Vitals I&O Vital Signs Date Time Temp Pulse Resp B/P (MAP) Pulse Ox O2 Delivery O2 Flow Rate FiO2 10/24/17 12:00 95.7 82 24 108/54 (72) 96 10/24/17 12:00 82 10/24/17 11:50 94 70 10/24/17 11:50 100 100 10/24/17 10:00 121 10/24/17 09:45 98 70 10/24/17 09:18 99 70 10/24/17 08:00 117 10/24/17 08:00 94.9 117 21 184/75 (111) 97 10/24/17 07:53 94 Non-Rebreather 15.00 10/24/17 06:38 98 Non-Rebreather 15.00 100 10/24/17 05:59 126 187/76 10/24/17 04:08 128 223/92 10/24/17 04:00 128 10/24/17 04:00 99.9 128 24 218/98 (138) 97 10/24/17 03:00 127 30 195/112 (139) 99 10/24/17 02:45 126 22 81 10/24/17 02:34 123 20 198/99 (132) 96 10/24/17 02:33 123 19 225/93 (137) 94 10/24/17 02:31 122 20 213/95 (134) 95 10/24/17 02:30 123 20 96 10/24/17 02:26 124 21 187/93 (124) 96 10/24/17 02:24 125 21 207/120 (149) 93 10/24/17 02:15 130 32 10/24/17 02:08 98 Simple Mask 7.00 10/24/17 02:00 129 33 171/123 (139) 98 10/24/17 01:45 125 20 93 10/24/17 01:31 124 22 191/88 (122) 89 10/24/17 01:30 124 20 93 10/24/17 01:15 124 21 87 10/24/17 01:10 123 19 204/85 (124) 92 10/24/17 01:00 122 20 218/99 (138) 87 10/24/17 00:45 127 27 93 10/24/17 00:31 126 29 150/100 (117) 93 10/24/17 00:30 123 22 188/131 (150) 93 10/24/17 00:00 120 10/24/17 00:00 99.2 125 14 185/97 (126) 95 10/23/17 23:00 99.3 125 20 152/79 (103) 97 10/23/17 21:37 94 18 218/88 (131) 95 10/23/17 21:15 105 20 188/97 (127) 94 10/23/17 21:11 100 10/23/17 21:00 99.3 102 18 192/75 (114) 94 10/23/17 20:11 101 10/23/17 19:38 101 10/23/17 16:56 84 20 168/76 (106) 97 10/23/17 16:26 81 20 174/94 (120) 97 10/23/17 15:56 97.7 83 22 184/110 (134) 94 I/O 10/23/17 10/23/17 10/23/17 10/24/17 10/24/17 10/24/17 07:00 15:00 23:00 07:00 15:00 23:00 Intake Total 480 ml 0 ml 392 ml Output Total 2100 ml 1875 ml 250 ml 250 ml Balance -1620 ml -1875 ml -250 ml -250 ml 392 ml Intake Oral 480 ml 0 ml IV Total 392 ml Output Urine Total 2100 ml 1875 ml 250 ml 250 ml # Voids 2 # Bowel Movements 0 0 Imaging Last Impressions Brain MRI 10/24/17 0600 Signed Impressions: CONCLUSION: Negative MR Brain non contrast. Neck Magnetic Resonance Angiography 10/24/17 0000 Signed Impressions: CONCLUSION: Normal study __ Percent stenosis is calculated using the diameter of the stenotic region over t he diameter of the normal distal internal carotid artery Head Magnetic Resonance Angiography 10/24/17 0000 Signed Impressions: CONCLUSION: Negative MRA Cow ([place]) non contrast. Chest X-Ray 10/24/17 0000 Signed Impressions: CONCLUSION: Satisfactory endotracheal tube positioning. Bilateral infiltrates. Small left e ffusion Cervical Spine MRI 10/24/17 0000 Signed Impressions: CONCLUSION: 1. 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 2. 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 3. Multilevel significant neural foraminal narrowing as detailed at each level in the above discussion. 4. Lesion involving the spinous process of T2. This is incompletely characteri zed on this exam. Consider CT scan to further assess. Head CT 10/23/17 0000 Signed Impressions: CONCLUSION: 1. Atrophy. 2. No acute intracranial abnormality. Bone Biopsy CT 10/23/17 0000 Signed Impressions: CONCLUSION: 1. Uncomplicated CT guided bone marrow aspirate. 2. Uncomplicated CT guided bone marrow biopsy. Bone Osseous Survey 10/20/17 Signed Impressions: CONCLUSION: Ill-defined lucencies and patchy cortical thinning of multiple bones, primarily the long bones and especially the right tibia and fibula. Extensive multiple m yeloma could certainly have this appearance in the proper clinical setting. Renal Ultrasound 10/19/17 Signed Impressions: CONCLUSION: 1. Negative renal sonogram. Laboratory Test 10/23/17 21:10 10/23/17 22:35 10/24/17 04:35 10/24/17 09:00 White Blood Count 8.6 TH/MM3 11.6 TH/MM3 Red Blood Count 2.86 MIL/MM3 3.31 MIL/MM3 Hemoglobin 8.1 GM/DL 9.4 GM/DL Bedside Hemoglobin 7.5 G/DL Hematocrit 24.4 % 28.6 % Bedside Hematocrit 22.0 % Mean Corpuscular Volume 85.2 FL 86.5 FL Mean Corpuscular Hemoglobin 28.5 PG 28.5 PG Mean Corpuscular Hemoglobin Concent 33.4 % 33.0 % Red Cell Distribution Width 18.9 % 19.5 % Platelet Count 181 TH/MM3 219 TH/MM3 Mean Platelet Volume 7.5 FL 7.3 FL Neutrophils (%) (Auto) 76.6 % 75.1 % Lymphocytes (%) (Auto) 8.8 % 9.2 % Monocytes (%) (Auto) 6.5 % 6.6 % Eosinophils (%) (Auto) 7.7 % 8.7 % Basophils (%) (Auto) 0.4 % 0.4 % Neutrophils # (Auto) 6.6 TH/MM3 8.7 TH/MM3 Lymphocytes # (Auto) 0.8 TH/MM3 1.1 TH/MM3 Monocytes # (Auto) 0.6 TH/MM3 0.8 TH/MM3 Eosinophils # (Auto) 0.7 TH/MM3 1.0 TH/MM3 Basophils # (Auto) 0.0 TH/MM3 0.0 TH/MM3 CBC Comment AUTO DIFF AUTO DIFF Differential Comment AUTO DIFF CONFIRMED FINAL DIFF MANUAL Platelet Estimate NORMAL NORMAL Platelet Morphology Comment NORMAL NORMAL Ovalocytes 1+ 1+ Prothrombin Time 12.0 SEC Prothromb Time International Ratio 1.2 RATIO Activated Partial Thromboplast Time 22.8 SEC Fibrinogen 411 mg/dL Bedside Sodium 143 MMOL/L Bedside Potassium 3.0 MMOL/L Bedside Chloride 107 MMOL/L Bedside Blood Urea Nitrogen 37 MG/DL Bedside Creatinine 4.5 MG/DL Bedside Glucose 118 MG/DL Total Creatine Kinase 25 U/L Troponin I 0.03 NG/ML Nasal Screen MRSA (PCR) MRSA NOT DETECTED Differential Total Cells Counted 100 Neutrophils % (Manual) 73 % Band Neutrophils % 4 % Lymphocytes % 7 % Monocytes % 9 % Eosinophils % 6 % Neutrophils # (Manual) 9.0 TH/MM3 Metamyelocytes 1 % Blood Urea Nitrogen 41 MG/DL Creatinine 4.34 MG/DL Random Glucose 101 MG/DL Total Protein 7.5 GM/DL Calcium Level 12.1 MG/DL Magnesium Level 2.0 MG/DL Sodium Level 146 MEQ/L Potassium Level 3.1 MEQ/L Chloride Level 110 MEQ/L Carbon Dioxide Level 24.4 MEQ/L Anion Gap 12 MEQ/L Estimat Glomerular Filtration Rate 13 ML/MIN Protein Corrected Calcium 11.9 MG/DL Urine Color LIGHT-YELLOW Urine Turbidity CLEAR Urine pH 6.5 Urine Specific [place] 1.008 Urine Protein 30 mg/dL Urine Glucose (UA) NEG mg/dL Urine Ketones NEG mg/dL Urine Occult Blood TRACE Urine Nitrite NEG Urine Bilirubin NEG Urine Urobilinogen LESS THAN 2.0 MG/DL Urine Leukocyte Esterase NEG Urine RBC 1 /hpf Urine WBC 1 /hpf Urine Squamous Epithelial Cells <1 /hpf Urine Amorphous Sediment OCC Urine Bacteria RARE /hpf Urine Mucus FEW /lpf Microscopic Urinalysis Comment CATH-CULTURE IND Test 10/24/17 09:25 10/24/17 13:55 10/24/17 14:01 Blood Gas Puncture Site RT RADIAL Blood Gas Patient Temperature 98.6 Blood Gas HCO3 26 mmol/L Blood Gas Base Excess -1.3 mmol/L Blood Gas Oxygen Saturation 94 % Arterial Blood pH 7.18 Arterial Blood Partial Pressure CO2 72 mmHg Arterial Blood Partial Pressure O2 105 mmHg Arterial Blood Oxygen Content 12.6 Vol % Arterial Blood Carboxyhemoglobin 0.6 % Arterial Blood Methemoglobin 1.6 % Blood Gas Hemoglobin 9.4 G/DL Oxygen Delivery Device VENTILATOR Blood Gas Ventilator Setting SEE COMMENTS White Blood Count 7.1 TH/MM3 Red Blood Count 3.08 MIL/MM3 Hemoglobin 8.9 GM/DL Hematocrit 26.7 % Mean Corpuscular Volume 86.8 FL Mean Corpuscular Hemoglobin 28.8 PG Mean Corpuscular Hemoglobin Concent 33.2 % Red Cell Distribution Width 19.8 % Platelet Count 173 TH/MM3 Mean Platelet Volume 7.6 FL Neutrophils (%) (Auto) 85.3 % Lymphocytes (%) (Auto) 8.0 % Monocytes (%) (Auto) 2.5 % Eosinophils (%) (Auto) 3.4 % Basophils (%) (Auto) 0.8 % Neutrophils # (Auto) 6.0 TH/MM3 Lymphocytes # (Auto) 0.6 TH/MM3 Monocytes # (Auto) 0.2 TH/MM3 Eosinophils # (Auto) 0.2 TH/MM3 Basophils # (Auto) 0.1 TH/MM3 CBC Comment DIFF FINAL Differential Comment Date/Time Source Procedure Growth Status 10/24/17 13:55 Blood Peripheral Aerobic Blood Culture Pending Received 10/24/17 13:55 Blood Peripheral Anaerobic Blood Culture Pending Received 10/19/17 12:30 Stool Stool Stool Occult Blood (NAOMI) - Final HEMOCCULT NEGATIVE Complete 10/24/17 09:11 Sputum Endotracheal Gram Stain Pending Received 10/24/17 09:11 Sputum Endotracheal Sputum Culture Pending Received 10/24/17 09:00 Urine Catheterized Urine Urine Culture Pending Received Physical Examination HEENT: Normocephalic; atraumatic CHEST: Respirations synchronized with vent via ETT CARDIAC: Irregular rate and rhythm. ABDOMEN: Soft, nondistended, bowel sounds active. OG to [facility] with coffee ground emesis EXTREMITIES: No clubbing, cyanosis, or edema. SKIN: Normal; no rash; no jaundice. MANAGER VOICE: Sedated (Hawa Andrade) Assessment and Plan Plan Assessment: - Anemia, normocytic- being evaluated by hematology who has ordered a bone marrow biopsy which was done yesterday- pt sent by public speaking professor due to routine labs revealing anemia- according to ER notes was complaining of some fatigue but denied any obvious source of GIB at that time. He is now intubated and sedated so information obtained through chart review. Now OG to [facility] with coffee ground emesis. - History of colon cancer S/P resection Plan: EGD today Obtain consent OG to [facility] Protonix gtt Monitor H/H Transfuse as needed Bone marrow biopsy per hematology Further recommendations based on findings of above Pt has been seen and examined by myself and Dr. Reyes and this note is written on his behalf (Hawa Andrade) Physician Comments Seen with Hawa, plan as above. Will obtain consent for EGD. Further recommendations based on above findings. Thank you (Sandip Reyes MD) Hawa Andrade Oct 24, 2017 14:44 Sandip Reyes MD Oct 24, 2017 15:02
--- NOTE | 2017-10-24 15:32 | EKG ---
Date Performed: 10/23/2017 Time Performed: 21:59:52 PTAGE: 82 years EKG: ATRIAL FLUTTER/TACHYCARDIA INFERIOR MYOCARDIAL INFARCTION , OF INDETERMINATE AGE MODERATE T -WAVE ABNORMALITY, CONSIDER ANTERIOR ISCHEMIA ABNORMAL ECG Since the PREVIOUS TRACING , no significant change noted PREVIOUS TRACIN10/18/2017 12.59 DOCTOR: Rafaela Benedict Interpretating Date/Time 10/24/2017 15:30:14
[2017-10-24] MEDS: PANTOPRAZOLE INJ 80 MG in SODIUM CHLORIDE 0.9% INJ 100 ML IV SCH (15:36)
--- NOTE | 2017-10-24 16:26 | MG ---
cc: Angel Schwarz MD, PhD DATE OF STUDY: 10/24/2017 EEG TEST NUMBER: [id number]. TECHNIQUE: This is a 17-channel EEG. DESCRIPTION: The background rhythm reveals moderate slowing in the theta frequency of roughly 5-6 Hz. Amplitude is on the low side at roughly 5-10 microvolts. There is fairly prominent muscle artifact. No lateralizing features are identified and no epileptiform features are identified. Photic stimulation does not elicit a driving response. INTERPRETATION: Abnormal study consistent with a diffuse encephalopathy. Angel Schwarz MD, PhD KENAN/SB , 04:11 PM , 04:25 PM
--- NOTE | 2017-10-24 16:44 | GIPROC ---
[facility] [address]. [facility] [place], [address] EGD PROCEDURE REPORT EXAM DATE: 10/24/2017 PATIENT NAME: Ant Mcintosh MR #: [id number] BIRTHDATE: 1935 ATTENDING: Sandip Reyes MD ORDER #: [id number] CAMPUS EXECUTIVE DIRECTOR: Belen Baum and Nick Kenny STATUS: inpatient INDICATIONS: The patient is a 82 yr old male here for an EGD due to hematemesis PROCEDURE PERFORMED: EGD, diagnostic MEDICATIONS: Per Anesthesia and None. TOPICAL ANESTHETIC: none CONSENT: The patient understands the risks and benefits of the procedure and understands that these risks include, but are not limited to: sedation, allergic reaction, infection, perforation and/or bleeding. Alternative means of evaluation and treatment include, among others: physical exam, x-rays, and/or surgical intervention. The patient elects to proceed with this endoscopic procedure. medical equipment was checked for proper function. Hand hygiene and appropriate measures for infection prevention was taken. After the risks, benefits and alternatives of the procedure were thoroughly explained, Informed consent was verified, confirmed and timeout was successfully executed by the treatment team. The patient was anesthetized with topical anesthesia and the Pentax [id number] endoscope was introduced through the mouth and advanced to the second portion of the duodenum. Retroflexion was performed and was normal The gastroscope was then slowly withdrawn and removed. ESOPHAGUS: There was LA Class C esophagitis noted. STOMACH: The mucosa of the stomach appeared normal. DUODENUM: The duodenal mucosa appeared normal in the duodenal bulb, 2nd part duodenum, and 3rd part duodenum. ADVERSE EVENTS: There were no complications. IMPRESSIONS: 1. There was LA Class C esophagitis noted wiyh evidence of NG trauma 2. The mucosa of the stomach appeared normal , normal gastric secreations without evidence of active or recent bleeding. 3. Normal duodenal mucosa in the duodenal bulb, 2nd part duodenum, and 3rd part duodenum 4. Retroflexion was performed and was normal RECOMMENDATIONS: Continue PPI PATIENT CONDITION: stable DISPOSITION: Observation REPEAT EXAM: NONE Sandip Reyes MD eSigned: Sandip Reyes MD 10/24/2017 4:43 PM cc: PATIENT NAME: Ant Mcintosh MR#: [id number]
[2017-10-24] MEDS: HEPARIN-D5W 25,000 U/250 ML 250 ML IV PRN (18:27)
[2017-10-24] MEDS ORDERED: HEPARIN SODIUM - IV 10,000 UNITS/10 ML VIAL IV PUSH ONE (18:30)
[2017-10-24] MEDS: CHLORHEXIDINE 0.12% (ORAL KIT) 15 ML CUP MT SCH (21:17)
[2017-10-24] MEDS ORDERED: RESP: ALBUTEROL 2.5 MG/3 ML NEB (PRN) NEB (22:00)
[2017-10-24] MEDS: RESP: ALBUTEROL 2.5 MG/IPRATROPIUM 0.5 MG NEB (SCH) NEB (23:13)
[2017-10-25] VITALS (26 sets, daily range): BP systolic 100–177; BP diastolic 56–90; PULSE 64–128; RESP 16–27; TEMP 96.8–98.3; O2SAT 94–99
[2017-10-25] MEDS: PANTOPRAZOLE INJ 80 MG in SODIUM CHLORIDE 0.9% INJ 100 ML IV SCH ×2 (00:14→10:40)
[2017-10-25] MEDS: PROPOFOL 1000 MG/100 ML INJ 100 ML IV PRN ×3 (01:31→08:23)
[2017-10-25] MEDS: RESP: ALBUTEROL 2.5 MG/IPRATROPIUM 0.5 MG NEB (SCH) NEB ×6 (02:56→23:32)
[2017-10-25 03:13] LABS: AUTOMATED NEUTROPHIL # 6.9 TH/MM3 (1.8-7.7); BASOPHIL % 0.3 % (0.0-2.0); EOSINOPHIL # 0.1 TH/MM3 (0-0.4); EOSINOPHIL % 0.9 % (0.0-4.0); HEMATOCRIT 21.8 % (39.0-51.0); HEMOGLOBIN 7.2 GM/DL (13.0-17.0); LYMPH % 6.6 % (9.0-44.0); LYMPHOCYTE # 0.5 TH/MM3 (1.0-4.8); MEAN CELL VOLUME 86.7 FL (80.0-100.0); MEAN CORPUSCULAR HEMOGLOBIN 28.6 PG (27.0-34.0); MEAN PLATELET VOLUME 7.7 FL (7.0-11.0); MONOCYTE # 0.3 TH/MM3 (0-0.9); NEUT % 88.2 % (16.0-70.0); PLATELET COUNT 146 TH/MM3 (150-450); RED BLOOD COUNT 2.51 MIL/MM3 (4.50-5.90); RED CELL DISTRIBUTION WIDTH 19.3 % (11.6-17.2); WHITE BLOOD COUNT 7.8 TH/MM3 (4.0-11.0)
[2017-10-25] MEDS: PIPERACIL-TAZO 2.25 GM PREMIX 50 ML IV SCH ×3 (03:29→17:33)
[2017-10-25] MEDS: CHLORHEXIDINE GLUCONATE 2 % 1 PACK (2 CLOTHS)(taper/protocol) TOPICAL SCH (03:31)
[2017-10-25 04:00] LABS: ALBUMIN 2.3 GM/DL (3.4-5.0); ALKALINE PHOSPHATASE 64 U/L (45-117); ALT (GPT) 24 U/L (12-78); AST (GOT) 18 U/L (15-37); BICARBONATE 17.4 MEQ/L (21.0-32.0); BLOOD UREA NITROGEN 52 MG/DL (7-18); CALCIUM 10.9 MG/DL (8.5-10.1); CHLORIDE 113 MEQ/L (98-107); CREATININE 4.87 MG/DL (0.60-1.30); GLOMERULAR FILTRATION RATE 12 ML/MIN (>89); GLUCOSE,RANDOM 107 MG/DL (74-106); SODIUM (NA) 145 MEQ/L (136-145); TOTAL BILIRUBIN ADULT 0.4 MG/DL (0.2-1.0); TOTAL PROTEIN 5.5 GM/DL (6.4-8.2)
[2017-10-25] MEDS: LEVOTHYROXINE SODIUM 75 MCG TAB PO SCH (05:34)
[2017-10-25] MEDS: hydrALAZINE HCL 25 MG TAB PO SCH ×3 (05:34→22:46)
[2017-10-25] MEDS: CHLORHEXIDINE 0.12% (ORAL KIT) 15 ML CUP MT SCH ×2 (08:20→22:45)
--- NOTE | 2017-10-25 08:20 | HHI.PR ---
Review/Management Diagnosis/Plan: (1) Acute encephalopathy ICD Codes: G93.40 - Encephalopathy, unspecified Status: Acute Plan: etiology: htn surge/reaction to anesthetic/resp failure 2/2 aspiration? cxr- infiltrates mri brain- no acute infarct. mri cspine- no cord lesion recs Limited exam with patient intubated and on sedation medical management ok to start anticoagulation from neuro in critical condition We will follow peripherally (2) Acute respiratory failure ICD Codes: J96.00 - Acute respiratory failure, unspecified whether with hypoxia or hypercapnia Status: Acute (3) Atrial fibrillation ICD Codes: I48.91 - Unspecified atrial fibrillation (4) Acute renal failure ICD Codes: N17.9 - Acute kidney failure, unspecified Status: Acute Subjective Subjective Comments No acute events reported Active Medications Current Medications Medications (Trade) Dose Ordered Sig/Reggie Route Start Time Stop Time Status Last Admin (NS Flush) 2 ml UNSCH PRN IV FLUSH 10/18/17 14:15 10/24/17 09:30 (NS Flush) 2 ml BID IV FLUSH 10/18/17 21:00 10/24/17 21:17 (Zofran Odt) 4 mg Q6H PRN PO 10/18/17 14:45 (Morphine Inj) 2 mg Q3H PRN IV 10/18/17 14:45 (Morphine Inj) 4 mg Q3H PRN IV 10/18/17 14:45 10/24/17 03:16 (Narcan Inj) 0.4 mg UNSCH PRN IV PUSH 10/18/17 14:15 10/24/17 06:58 (Milk Of Magnesia Liq) 30 ml Q12H PRN PO 10/18/17 14:15 10/21/17 08:17 (Vitamin D3) 2,000 units DAILY PO 10/19/17 09:00 10/24/17 09:31 (Synthroid) 75 mcg DAILY@0600 PO 10/19/17 06:00 10/25/17 05:34 (Theragran) 1 tab DAILY PO 10/19/17 09:00 10/24/17 09:31 (Pill Splitter) 1 ea UNSCH PRN OTHER 10/18/17 15:45 (Colace) 100 mg BID PO 10/18/17 21:00 10/24/17 21:16 (Catapres) 0.1 mg Q6H PRN PO 10/18/17 18:30 10/21/17 15:54 (Lopressor) 25 mg BID PO 10/19/17 21:00 10/24/17 21:16 (Cardizem Cd) 240 mg DAILY PO 10/20/17 09:00 Future Hold 10/23/17 10:42 (Apresoline) 50 mg Q8HR PO 10/21/17 22:00 10/25/17 05:34 Nicardipine HCl 25 mg/Sodium Chloride 260 ml @ 52 mls/hr TITRATE PRN IV 10/23/17 22:30 10/24/17 05:59 ([facility] [place] Nursing Information) Patient in critical care unit? Ass... Q361D .XX 10/23/17 23:00 10/23/17 23:00 (Chlorhexidine 2% Cloth) 3 pack DAILY@04 TOPICAL 10/24/17 04:00 10/28/17 04:01 10/25/17 03:31 (Chlorhexidine 2% Cloth) 3 pack UNSCH PRN TOPICAL 10/23/17 23:00 10/28/17 22:47 (Aspirin Chew) 81 mg DAILY CHEW 10/24/17 09:00 10/24/17 09:30 (Peridex 0.12% Liq) 15 ml BID@08,20 MT 10/24/17 20:00 10/24/17 21:17 Propofol 100 ml @ 3.27 mls/hr TITRATE PRN IV 10/24/17 08:45 10/25/17 05:36 Piperacillin Sod/ Tazobactam Sod 50 ml @ 100 mls/hr Q6H IV 10/24/17 10:00 10/25/17 03:29 (Pepcid) 10 mg BID PO 10/24/17 11:00 Future Hold 10/24/17 12:19 Dopamine HCl/ Dextrose 500 ml @ 12.263 mls/ hr TITRATE PRN IV 10/24/17 11:00 (Brethine Inj) 1 mg UNSCH PRN SQ 10/24/17 11:00 Phenylephrine HCl 40 mg/Dextrose 500 ml @ 30 mls/hr TITRATE PRN IV 10/24/17 11:15 Sodium Chloride 1,000 ml @ 100 mls/hr Q10H IV 10/24/17 13:00 10/24/17 23:19 Pantoprazole Sodium 80 mg/ Sodium Chloride 100 ml @ 10 mls/hr Q10H IV 10/24/17 15:00 10/25/17 00:14 Heparin Sodium/ Dextrose 250 ml @ 18 mls/hr TITRATE PRN IV 10/24/17 17:45 10/24/17 18:27 (Duoneb Neb) 1 ampule Q4HR NEB NEB 10/25/17 00:00 10/25/17 02:56 (Albuterol Neb) 2.5 mg Q2HR NEB PRN NEB 10/24/17 22:00 Allergies Allergies Coded Allergies No Known Allergies (Verified Allergy, Unknown, 06/24/17) Review of Systems All other ROS: Unable to obtain Exam I&O / VS 10/25/17 10/25/17 10/26/17 15:00 23:00 07:00 Intake Total 69 ml Balance 69 ml IV Total 69 ml Vital Signs Date Time Temp Pulse Resp B/P (MAP) Pulse Ox O2 Delivery O2 Flow Rate FiO2 10/25/17 07:59 97 50 10/25/17 06:00 124 10/25/17 04:00 50 10/25/17 04:00 97.3 126 24 131/72 (91) 97 10/25/17 04:00 126 10/25/17 03:51 94 50 10/25/17 02:10 94 50 10/25/17 02:00 91 10/25/17 00:00 98.3 105 25 135/63 (87) 99 10/25/17 00:00 105 10/25/17 00:00 50 10/24/17 22:00 91 10/24/17 20:53 96 50 10/24/17 20:00 94 10/24/17 20:00 70 10/24/17 20:00 98.6 94 24 102/56 (71) 97 10/24/17 18:00 91 10/24/17 16:00 70 10/24/17 16:00 97.7 117 28 161/82 (108) 97 10/24/17 16:00 117 10/24/17 15:30 96 70 10/24/17 14:00 90 10/24/17 12:00 95.7 82 24 108/54 (72) 96 10/24/17 12:00 70 10/24/17 12:00 82 10/24/17 11:50 94 70 10/24/17 11:50 100 100 10/24/17 10:00 70 10/24/17 10:00 121 10/24/17 09:45 98 70 10/24/17 09:18 99 70 10/24/17 08:30 70 Exam Comments intubated, sedated on propofol coma state, not following, nonverbal minimal grimace to tactile ou approximately 2-1 mm and reactive, sluggish horizontal ocular movements no involuntary movements Objective Micro and Labs Laboratory Tests Test 10/24/17 09:00 10/24/17 09:25 10/24/17 13:55 10/24/17 14:01 Urine Color LIGHT-YELLOW Urine Turbidity CLEAR Urine pH 6.5 Urine Specific Hubbard 1.008 Urine Protein 30 Urine Glucose (UA) NEG Urine Ketones NEG Urine Occult Blood TRACE Urine Nitrite NEG Urine Bilirubin NEG Urine Urobilinogen LESS THAN 2.0 Urine Leukocyte Esterase NEG Urine RBC 1 Urine WBC 1 Urine Squamous Epithelial Cells <1 Urine Amorphous Sediment OCC Urine Bacteria RARE Urine Mucus FEW Microscopic Urinalysis Comment CATH-CULTURE IND Blood Gas Puncture Site RT RADIAL Blood Gas Patient Temperature 98.6 Blood Gas HCO3 26 Blood Gas Base Excess -1.3 Blood Gas Oxygen Saturation 94 Arterial Blood pH 7.18 Arterial Blood Partial Pressure CO2 72 Arterial Blood Partial Pressure O2 105 Arterial Blood Oxygen Content 12.6 Arterial Blood Carboxyhemoglobin 0.6 Arterial Blood Methemoglobin 1.6 Blood Gas Hemoglobin 9.4 Oxygen Delivery Device VENTILATOR Blood Gas Ventilator Setting SEE COMMENTS White Blood Count 7.1 Red Blood Count 3.08 Hemoglobin 8.9 Hematocrit 26.7 Mean Corpuscular Volume 86.8 Mean Corpuscular Hemoglobin 28.8 Mean Corpuscular Hemoglobin Concent 33.2 Red Cell Distribution Width 19.8 Platelet Count 173 Mean Platelet Volume 7.6 Neutrophils (%) (Auto) 85.3 Lymphocytes (%) (Auto) 8.0 Monocytes (%) (Auto) 2.5 Eosinophils (%) (Auto) 3.4 Basophils (%) (Auto) 0.8 Neutrophils # (Auto) 6.0 Lymphocytes # (Auto) 0.6 Monocytes # (Auto) 0.2 Eosinophils # (Auto) 0.2 Basophils # (Auto) 0.1 CBC Comment DIFF FINAL Differential Comment Prothrombin Time 11.7 Prothromb Time International Ratio 1.2 Activated Partial Thromboplast Time 19.9 Test 10/25/17 00:30 10/25/17 03:05 10/25/17 05:20 Activated Partial Thromboplast Time GREATER THAN 277.5 277.5 69.9 White Blood Count 7.8 Red Blood Count 2.51 Hemoglobin 7.2 Hematocrit 21.8 Mean Corpuscular Volume 86.7 Mean Corpuscular Hemoglobin 28.6 Mean Corpuscular Hemoglobin Concent 33.0 Red Cell Distribution Width 19.3 Platelet Count 146 Mean Platelet Volume 7.7 Neutrophils (%) (Auto) 88.2 Lymphocytes (%) (Auto) 6.6 Monocytes (%) (Auto) 4.0 Eosinophils (%) (Auto) 0.9 Basophils (%) (Auto) 0.3 Neutrophils # (Auto) 6.9 Lymphocytes # (Auto) 0.5 Monocytes # (Auto) 0.3 Eosinophils # (Auto) 0.1 Basophils # (Auto) 0.0 CBC Comment DIFF FINAL Differential Comment Blood Urea Nitrogen 52 Creatinine 4.87 Random Glucose 107 Total Protein 5.5 Albumin 2.3 Calcium Level 10.9 Alkaline Phosphatase 64 Aspartate Amino Transf (AST/SGOT) 18 Alanine Aminotransferase (ALT/SGPT) 24 Total Bilirubin 0.4 Sodium Level 145 Potassium Level 3.4 Chloride Level 113 Carbon Dioxide Level 17.4 Anion Gap 15 Estimat Glomerular Filtration Rate 12 Date/Time Source Procedure Growth Status 10/24/17 13:55 Blood Peripheral Aerobic Blood Culture Pending Received 10/24/17 13:55 Blood Peripheral Anaerobic Blood Culture Pending Received 10/19/17 12:30 Stool Stool Stool Occult Blood (NAOMI) - Final HEMOCCULT NEGATIVE Complete 10/24/17 09:11 Sputum Endotracheal Gram Stain - Final Resulted 10/24/17 09:11 Sputum Endotracheal Sputum Culture Pending Resulted 10/24/17 09:00 Urine Catheterized Urine Urine Culture Pending Received Problem Qualifiers (1) Acute respiratory failure: Qualified Codes: J96.01 - Acute respiratory failure with hypoxia Colby León MD Oct 25, 2017 08:20
[2017-10-25] MEDS: SODIUM CHLOR 0.45% 1000 ML INJ 1,000 ML IV SCH (08:21)
[2017-10-25] MEDS: ASPIRIN 81 MG CHEW TAB CHEW SCH (08:21)
[2017-10-25] MEDS: DOCUSATE SODIUM 100 MG CAP PO SCH ×2 (08:22→21:00)
[2017-10-25] MEDS: SODIUM CHLORIDE 0.9% FLUSH 10 ML FLUSH IV FLUSH PRN (08:22)
[2017-10-25] MEDS: CHOLECALCIFEROL (VIT D3) 1000 UNIT TAB PO SCH (08:22)
[2017-10-25] MEDS: SODIUM CHLORIDE 0.9% FLUSH 10 ML FLUSH IV FLUSH SCH ×2 (08:22→22:45)
[2017-10-25] MEDS: METOPROLOL TARTRATE 25 MG TAB PO SCH ×2 (08:22→22:46)
[2017-10-25] MEDS: MULTIVITAMIN TAB PO SCH (08:22)
--- NOTE | 2017-10-25 10:26 | HHI.CCPN ---
Subjective Remarks/Hospital Course 10/23: Mr. Mcintosh is an 82-year-old male. He came in the hospital secondary to progressive anemia. Hemoglobin today is 6.9. He has a past history of bleed which was not found to be GI related. Additional findings today are acute renal failure and hypercalcemia. He recalls that he might have had some kidney disease in the past but cannot specify. Looking in our past records his highest creatinine value have been 3.5 but currently his creatinine levels at 5.11. She does not report being dehydrated. He has had a fracture approximately 3 months ago and has been on bedrest until recently for this. Additionally he is on Eliquis. Eliquis combined with his renal condition may be contributory to blood loss. Renal dysfunction can also be contributory to his hypercalcemia. Shortness of breath and weakness have been his primary complaints. Patient underwent bone marrow biopsy by interventional radiology on 10/23. Around 9 PM patient developed altered mental status with speech difficulty and questionable left-sided facial weakness. Stroke alert was called. Head CT done during stroke alert was negative for bleed. Dr. Saunders from neurology was contacted. Patient's blood pressure at that time was 218 systolic. She ordered a nicardipine drip and transferred patient to ICU with critical care consult. I evaluated patient following his arrival to the ICU. At that time patient appeared comfortable not in any acute distress. He was moving all 4 extremities at the time and was completely awake and alert and oriented. He did have some tremors in bilateral upper extremities however stated that he was feeling cold and shivering. 10/24: Patient did take his aspirin after talking to his last night. He did receive 0.5 mg Ativan last night for agitation and morphine around 4 AM for pain and subsequently this morning was noted to be lethargic. His O2 sats dropped and he was placed on nonrebreather facemask. His sats improved with IV Narcan however he was also getting hypothermic and bradycardic. I spoke with patient's at bedside as patient did not appear to be protecting his airway. I proceeded with endotracheal intubation and patient was placed on mechanical ventilation. He is awaiting MRI brain. Subjective: 10/25 MRI brain negative. On propofol, performing sedation vacation and will proceed with SBT and extubate if able. Oliguric overnight, UOP only 50 mL over the shift commander. Creatinine 4.87. Initiating diuretic, discussed with Dr. Carlson. Transfusing 1 unit PRBC for Hgb 7.2 per hematology. On heparin drip. Objective Vital Signs Date Time Temp Pulse Resp B/P (MAP) Pulse Ox O2 Delivery O2 Flow Rate FiO2 10/25/17 10:00 102 10/25/17 09:00 96.4 24 128/67 (87) 96 10/25/17 08:00 50 10/24/17 07:53 Non-Rebreather 15.00 Intake and Output 10/25/17 10/25/17 10/26/17 08:00 16:00 00:00 Intake Total 1356 ml 69 ml Output Total 100 ml Balance 1256 ml 69 ml Result Diagram: 10/25/17 0305 10/25/17 0305 Imaging Last Impressions Head CT 10/23/17 0000 Signed Impressions: CONCLUSION: 1. Atrophy. 2. No acute intracranial abnormality. Bone Biopsy CT 10/23/17 0000 Signed Impressions: CONCLUSION: 1. Uncomplicated CT guided bone marrow aspirate. 2. Uncomplicated CT guided bone marrow biopsy. Bone Osseous Survey 10/20/17 0000 Signed Impressions: CONCLUSION: Ill-defined lucencies and patchy cortical thinning of multiple bones, primarily the long bones and especially the right tibia and fibula. Extensive multiple m yeloma could certainly have this appearance in the proper clinical setting. Renal Ultrasound 10/19/17 Signed Impressions: CONCLUSION: 1. Negative renal sonogram. Objective Remarks Drips: Heparin Pantoprazole Propofol 40 mg/kg/min Gen: Elderly obese male who is orotracheally intubated. He has been on sedation. HEENT/ Neuro: Sedated, orally intubated, Pallor present, no icterus, mucous membranes moist Chest/Pulm: orotracheally intubated, on mechanical ventilation. Coarse breath sounds. No wheeze. Small amount of thick yellow secretions with suctioning CVS: S1-S2 irregularly irregular, no murmur GI/abdomen: soft, nontender, bowel sounds present. Bowel sounds sluggish : Mathis in place with limited light blanka urine in the Mathis peer Extremities: warm bilaterally, 1+ edema NEURO: Pupils reactive bilaterally. Withdraws BLE A/P Assessment and Plan 82 y/o male with Acute Encephalopathy Hypothermia Uncontrolled hypertension History of atrial fibrillation anemia hypercalcemia acute renal failure. h/o MGUS now appears Multiple Myeloma chronic kidney disease hypothyroidism h/o colon cancer Plan: Neuro -Stroke alert called and Dr. Saunders consulted for neurology. -Aspirin 81 mg p.o. daily. -Continue anticoagulation with heparin drip. -Intubated for airway protection. -2D echo, carotid Dopplers pending -MRI brain negative -MRI Cspine with degeneration C3/4 and C4/[address] León consulted NS. -Propofol for sedation with daily sedation medication. Follow neuro status - PT consulted - Check ammonia level, f/u serum viscosity. Cardiovascular: HTN AFIB Had epsiode of bradycardia 10/24 so cardizem was held Now normotensive. On metoprolol 25 mg p.o. twice daily Hydralazine 50 every 8 hours per nephrology Home Cardizem is 240 mg p.o. daily. Now tachycardic but cannot take a long- acting because he is intubated. Will use Cardizem 60 mg q6 hours. Pulmonary: -Intubated for airway protection and placed on mechanical ventilation -Vent bundle, bronchodilators as needed. -Daily CPAP trials and will extubate if tolerated and his mental status is appropriate after sedation vacation. GI/liver: Esophagitis -OG tube placed. Hold tube feeds for spontaneous breathing trial. Initiate tube feeds if not extubating. EGD 10/24LA class C esophagitis with NG trauma. Normal mucosa of stomach, duodenum. Discontinue Protonix drip but continue a PPI per GI recommendation Renal/: ZOFIA overlying CKD -Received pamidronate for hypercalcemia per nephrology on 10/23. -Now I>>O, oliguric. Will start diuretic and evaluate response, d/w Dr. Carlson. -Hypercalcemia probably secondary to multiple myeloma. Following calcium levels -Nephrology following Hemonc: -Being followed by oncology. Has known MGUS. Probable myeloma now. Awaiting bone marrow biopsy results which were done on 10/23. -Initiating decadron now. -Continue anticoagulation in view of history of A. fib , -Transfuse 1 unit packed red cells 10/25 -Started on aspirin 10/23 ID: -Pancultures ordered 10/24 -Minimal aspiration noted during intubation. -We will initiate empiric antibiotic coverage with IV Zosyn and the of hypothermia and the worsening mental status. Microbiology: 10/24urine culturepending 10/24 sputum Gram stain has GPC's pairs/chains/tetrads, culture pending 10/24 blood culture no growth today Endocrine: Hypothyroidism Continue Synthroid 75 mg p.o. daily -Watch for hyperglycemia, SSI for glycemic control if needed Prophylaxis: -/SCDs. Heparin drip as per above. PPI Discussed current clinical status with patient's in detail. Multiple questions answered. Discussed with Dr. Carlson and with Skylar Sanchez and Dr. Garcia Love. Level 3 f/u. Verona Cabrera MD Oct 25, 2017 10:26
[2017-10-25] MEDS ORDERED: POTASSIUM CHLORIDE 25 MEQ EFFERVESCENT TAB OG-TUBE ONE (11:00)
[2017-10-25] MEDS ORDERED: SODIUM CHLOR 0.9% 250 ML INJ 250 ML IV ONE (11:00)
[2017-10-25] MEDS: FUROSEMIDE 40 MG/4 ML VIAL IV PUSH SCH ×2 (11:11→22:47)
[2017-10-25] MEDS: DEXMEDETOMIDINE INJ 200 MCG in SODIUM CHLORIDE 0.9% INJ 50 ML IV PRN ×3 (11:30→22:47)
--- NOTE | 2017-10-25 11:49 | PD.ONC.PN ---
Subjective Subjective Remarks Afebrile overnight. Patient intubated. Off sedation. and family at bedside. no obvious bleeding. Objective Data Date Time Temp Pulse Resp B/P (MAP) Pulse Ox O2 Delivery O2 Flow Rate FiO2 10/25/17 11:39 96.8 126 26 177/90 96 10/25/17 11:24 99 45 10/25/17 11:15 45 10/25/17 10:00 102 10/25/17 09:00 96.4 127 24 128/67 (87) 96 10/25/17 08:00 96.4 97 24 117/59 (78) 97 10/25/17 08:00 97 10/25/17 08:00 50 10/25/17 07:59 97 50 10/25/17 07:00 96.3 100 24 120/77 (91) 98 10/25/17 06:00 124 10/25/17 04:00 50 10/25/17 04:00 97.3 126 24 131/72 (91) 97 10/25/17 04:00 126 10/25/17 03:51 94 50 10/25/17 02:10 94 50 10/25/17 02:00 91 10/25/17 00:00 98.3 105 25 135/63 (87) 99 10/25/17 00:00 105 10/25/17 00:00 50 10/24/17 22:00 91 10/24/17 20:53 96 50 10/24/17 20:00 94 10/24/17 20:00 70 10/24/17 20:00 98.6 94 24 102/56 (71) 97 10/24/17 18:00 91 10/24/17 16:00 70 10/24/17 16:00 97.7 117 28 161/82 (108) 97 10/24/17 16:00 117 10/24/17 15:30 96 70 10/24/17 14:00 90 10/24/17 12:00 95.7 82 24 108/54 (72) 96 10/24/17 12:00 70 10/24/17 12:00 82 10/24/17 11:50 94 70 10/24/17 11:50 100 100 10/25/1718 10/25/17 07:00 15:00 23:00 Intake Total 1837 ml 498 ml Output Total 100 ml Balance 1737 ml 498 ml Result Diagram: 10/25/17 0305 10/25/17 0305 Laboratory Results Laboratory Tests Test 10/24/17 13:55 10/24/17 14:01 10/25/17 00:30 10/25/17 03:05 White Blood Count 7.1 TH/MM3 7.8 TH/MM3 Red Blood Count 3.08 MIL/MM3 2.51 MIL/MM3 Hemoglobin 8.9 GM/DL 7.2 GM/DL Hematocrit 26.7 % 21.8 % Mean Corpuscular Volume 86.8 FL 86.7 FL Mean Corpuscular Hemoglobin 28.8 PG 28.6 PG Mean Corpuscular Hemoglobin Concent 33.2 % 33.0 % Red Cell Distribution Width 19.8 % 19.3 % Platelet Count 173 TH/MM3 146 TH/MM3 Mean Platelet Volume 7.6 FL 7.7 FL Neutrophils (%) (Auto) 85.3 % 88.2 % Lymphocytes (%) (Auto) 8.0 % 6.6 % Monocytes (%) (Auto) 2.5 % 4.0 % Eosinophils (%) (Auto) 3.4 % 0.9 % Basophils (%) (Auto) 0.8 % 0.3 % Neutrophils # (Auto) 6.0 TH/MM3 6.9 TH/MM3 Lymphocytes # (Auto) 0.6 TH/MM3 0.5 TH/MM3 Monocytes # (Auto) 0.2 TH/MM3 0.3 TH/MM3 Eosinophils # (Auto) 0.2 TH/MM3 0.1 TH/MM3 Basophils # (Auto) 0.1 TH/MM3 0.0 TH/MM3 CBC Comment DIFF FINAL DIFF FINAL Differential Comment Prothrombin Time 11.7 SEC Prothromb Time International Ratio 1.2 RATIO Activated Partial Thromboplast Time 19.9 SEC GREATER THAN 277.5 SEC 277.5 SEC Blood Urea Nitrogen 52 MG/DL Creatinine 4.87 MG/DL Random Glucose 107 MG/DL Total Protein 5.5 GM/DL Albumin 2.3 GM/DL Calcium Level 10.9 MG/DL Alkaline Phosphatase 64 U/L Aspartate Amino Transf (AST/SGOT) 18 U/L Alanine Aminotransferase (ALT/SGPT) 24 U/L Total Bilirubin 0.4 MG/DL Sodium Level 145 MEQ/L Potassium Level 3.4 MEQ/L Chloride Level 113 MEQ/L Carbon Dioxide Level 17.4 MEQ/L Anion Gap 15 MEQ/L Estimat Glomerular Filtration Rate 12 ML/MIN Test 10/25/17 05:20 Activated Partial Thromboplast Time 69.9 SEC Culture Results Microbiology Date/Time Source Procedure Growth Status 10/24/17 13:55 Blood Peripheral Aerobic Blood Culture - Preliminary NO GROWTH IN 1 DAY Resulted 10/24/17 13:55 Blood Peripheral Anaerobic Blood Culture - Preliminary NO GROWTH IN 1 DAY Resulted 10/24/17 13:06 Blood Peripheral Aerobic Blood Culture - Preliminary NO GROWTH IN 1 DAY Resulted 10/24/17 13:06 Blood Peripheral Anaerobic Blood Culture - Preliminary NO GROWTH IN 1 DAY Resulted 10/24/17 09:11 Sputum Endotracheal Gram Stain - Final Resulted 10/24/17 09:11 Sputum Endotracheal Sputum Culture Pending Resulted 10/24/17 09:00 Urine Catheterized Urine Urine Culture Pending Received Administered Medications Medications (Trade) Dose Ordered Sig/Reggie Route PRN Reason Start Time Stop Time Status Last Admin Dose Admin Sodium Chloride (NS Flush) 2 ml UNSCH PRN IV FLUSH FLUSH AFTER USING IV ACCESS 10/18/17 14:15 10/25/17 08:22 Sodium Chloride (NS Flush) 2 ml BID IV FLUSH 10/18/17 21:00 10/25/17 08:22 Morphine Sulfate (Morphine Inj) 4 mg Q3H PRN IV Pain 6-10;if unable to take PO 10/18/17 14:45 10/24/17 03:16 Naloxone HCl (Narcan Inj) 0.4 mg UNSCH PRN IV PUSH SEE LABEL COMMENTS 10/18/17 14:15 10/24/17 06:58 Magnesium Hydroxide (Milk Of Magnora Liq) 30 ml Q12H PRN PO Mild constipation 10/18/17 14:15 10/21/17 08:17 Cholecalciferol (Vitamin D3) 2,000 units DAILY PO 10/19/17 09:00 10/25/17 08:22 Levothyroxine Sodium (Synthroid) 75 mcg DAILY@0600 PO 10/19/17 06:00 10/25/17 05:34 Multivitamins (Theragran) 1 tab DAILY PO 10/19/17 09:00 10/25/17 08:22 Docusate Sodium (Colace) 100 mg BID PO 10/18/17 21:00 10/25/17 08:22 Clonidine (Catapres) 0.1 mg Q6H PRN PO SBP>160, DBP>90 10/18/17 18:30 10/21/17 15:54 Metoprolol Tartrate (Lopressor) 25 mg BID PO 10/19/17 21:00 10/25/17 08:22 Diltiazem HCl (Cardizem Cd) 240 mg DAILY PO 10/20/17 09:00 Future Hold 10/23/17 10:42 Hydralazine HCl (Apresoline) 50 mg Q8HR PO 10/21/17 22:00 10/25/17 05:34 Nicardipine HCl 25 mg/Sodium Chloride 260 ml @ 52 mls/hr TITRATE PRN IV Blood Pressure Management 10/23/17 22:30 10/24/17 05:59 Miscellaneous Information ([facility] [place] [facility] [place] Patient in critical care unit? Ass... Q361D .XX 10/23/17 23:00 10/23/17 23:00 Chlorhexidine Gluconate (Chlorhexidine 2% Cloth) 3 pack DAILY@04 TOPICAL 10/24/17 04:00 10/28/17 04:01 10/25/17 03:31 Aspirin (Aspirin Chew) 81 mg DAILY CHEW 10/24/17 09:00 10/25/17 08:21 Chlorhexidine Gluconate (Peridex 0.12% Liq) 15 ml BID@08,20 MT 10/24/17 20:00 10/25/17 08:20 Propofol 100 ml @ 3.27 mls/hr TITRATE PRN IV SEDATION 10/24/17 08:45 10/25/17 08:23 Famotidine (Pepcid) 10 mg BID PO 10/24/17 11:00 Future Hold 10/24/17 12:19 Heparin Sodium/ Dextrose 250 ml @ 18 mls/hr TITRATE PRN IV Coagulation Management 10/24/17 17:45 10/24/17 18:27 Albuterol/ Ipratropium (Duoneb Neb) 1 ampule Q4HR NEB NEB 10/25/17 00:00 10/25/17 11:18 Furosemide (Lasix Inj) 40 mg Q12H IV PUSH 10/25/17 11:00 10/25/17 11:11 Sodium Chloride 250 ml @ 15 mls/hr ONCE ONCE IV 10/25/17 11:00 10/26/17 03:39 10/25/17 11:30 Dexmedetomidine HCl 200 mcg/ Sodium Chloride 52 ml @ 5.53 mls/hr TITRATE PRN IV SEDATION 10/25/17 11:30 10/25/17 11:30 Objective Remarks GENERAL: intubated male, supine in bed. SKIN: Warm and dry. HEAD: Normocephalic. EYES: No injection or drainage. NECK: Supple, trachea midline. CARDIOVASCULAR: +S1/S2 RESPIRATORY: anterior gutierrez with occasional rhonchi. on mechanical ventilation. GASTROINTESTINAL: Abdomen nondistended. EXTREMITIES: No cyanosis NEUROLOGICAL: not following commands, does not open eyes. Assessment/Plan Assessment 82y/o male with anemia, hypercalcemia, and acute renal failure. h/o MGUS, hypertension, chronic kidney disease, hypothyroidism, colon cancer, anemia. Plan 1. 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 --urine protein=~3g --PcF=[id number] --abnormal discrete band in gamma region noted. --s/p Aredia 60mg on 10/2310/25/17: await bone marrow biopsy results. discussed with at bedside. will give 1 unit pRBC for hgb 7.2. start decadron 10mg IV daily x 4 days 2. Atrial fibrillation and history of left lower extremity deep venous thrombosis. on heparin gtt. monitor H/H closely. 3. Respiratory failure: on mechanical ventilation. management per critical care. Attending Statement The exam, history, and the medical decision-making described in the above note were completed with the assistance of the mid-level provider. I reviewed and agree with the findings presented. I attest that I had a [id number] encounter with the patient on the same day, and personally performed and documented my assessment and findings in the medical record. case discussed with Dr. 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 Skylar Sanchez Oct 25, 2017 11:49 Chandler Love MD Oct 25, 2017 15:35
[2017-10-25] MEDS: DILTIAZEM HCL 60 MG TAB OG-TUBE SCH ×3 (12:30→22:47)
[2017-10-25] MEDS: HEPARIN-D5W 25,000 U/250 ML 250 ML IV PRN (12:35)
--- NOTE | 2017-10-25 13:03 | HHI.GIFU ---
Subjective Remarks Skin color pale, remains on ventilator support, sedation No obvious coffee-ground emesis per OG, still connected to low intermittent suction Current hemoglobin 7.2 History of colon cancer in 1983 (Myrna Castro) Objective Vitals I&O Vital Signs Date Time Temp Pulse Resp B/P (MAP) Pulse Ox O2 Delivery O2 Flow Rate FiO2 10/25/17 12:00 45 10/25/17 12:00 126 10/25/17 12:00 97.0 126 17 165/90 (115) 96 10/25/17 11:54 96.9 126 16 165/90 96 10/25/17 11:39 96.8 126 26 177/90 96 10/25/17 11:30 45 10/25/17 11:24 99 45 10/25/17 11:15 45 10/25/17 11:00 96.6 123 17 160/86 (110) 98 10/25/17 10:00 102 10/25/17 10:00 96.6 102 24 100/61 (74) 96 10/25/17 09:00 96.4 127 24 128/67 (87) 96 10/25/17 08:00 96.4 97 24 117/59 (78) 97 10/25/17 08:00 97 10/25/17 08:00 50 10/25/17 07:59 97 50 10/25/17 07:00 96.3 100 24 120/77 (91) 98 10/25/17 06:00 124 10/25/17 04:00 50 10/25/17 04:00 97.3 126 24 131/72 (91) 97 10/25/17 04:00 126 10/25/17 03:51 94 50 10/25/17 02:10 94 50 10/25/17 02:00 91 10/25/17 00:00 98.3 105 25 135/63 (87) 99 10/25/17 00:00 105 10/25/17 00:00 50 10/24/17 22:00 91 10/24/17 20:53 96 50 10/24/17 20:00 94 10/24/17 20:00 70 10/24/17 20:00 98.6 94 24 102/56 (71) 97 10/24/17 18:00 91 10/24/17 16:00 70 10/24/17 16:00 97.7 117 28 161/82 (108) 97 10/24/17 16:00 117 10/24/17 15:30 96 70 10/24/17 14:00 90 I/O 10/24/17 10/24/17 10/24/17 10/25/17 10/25/17 10/25/17 07:00 15:00 23:00 07:00 15:00 23:00 Intake Total 2392 ml 816.5 ml 1837 ml 569.6 ml Output Total 250 ml 550 ml 100 ml Balance -250 ml 2392 ml 266.5 ml 1737 ml 569.6 ml IV Total 2392 ml 766.5 ml 1657 ml 554.6 ml Blood Product IV Normal Saline Flush 15 ml Other 50 ml 180 ml Output Urine Total 250 ml 250 ml 50 ml Gastric Drainage Total 300 ml 50 ml # Voids 2 # Bowel Movements 0 0 Laboratory Laboratory Tests Test 10/24/17 13:55 10/24/17 14:01 10/25/17 00:30 10/25/17 03:05 White Blood Count 7.1 7.8 Red Blood Count 3.08 2.51 Hemoglobin 8.9 7.2 Hematocrit 26.7 21.8 Mean Corpuscular Volume 86.8 86.7 Mean Corpuscular Hemoglobin 28.8 28.6 Mean Corpuscular Hemoglobin Concent 33.2 33.0 Red Cell Distribution Width 19.8 19.3 Platelet Count 173 146 Mean Platelet Volume 7.6 7.7 Neutrophils (%) (Auto) 85.3 88.2 Lymphocytes (%) (Auto) 8.0 6.6 Monocytes (%) (Auto) 2.5 4.0 Eosinophils (%) (Auto) 3.4 0.9 Basophils (%) (Auto) 0.8 0.3 Neutrophils # (Auto) 6.0 6.9 Lymphocytes # (Auto) 0.6 0.5 Monocytes # (Auto) 0.2 0.3 Eosinophils # (Auto) 0.2 0.1 Basophils # (Auto) 0.1 0.0 CBC Comment DIFF FINAL DIFF FINAL Differential Comment Prothrombin Time 11.7 Prothromb Time International Ratio 1.2 Activated Partial Thromboplast Time 19.9 GREATER THAN 277.5 277.5 Blood Urea Nitrogen 52 Creatinine 4.87 Random Glucose 107 Total Protein 5.5 Albumin 2.3 Calcium Level 10.9 Alkaline Phosphatase 64 Aspartate Amino Transf (AST/SGOT) 18 Alanine Aminotransferase (ALT/SGPT) 24 Total Bilirubin 0.4 Sodium Level 145 Potassium Level 3.4 Chloride Level 113 Carbon Dioxide Level 17.4 Anion Gap 15 Estimat Glomerular Filtration Rate 12 Test 10/25/17 05:20 Activated Partial Thromboplast Time 69.9 Date/Time Source Procedure Growth Status 10/24/17 13:55 Blood Peripheral Aerobic Blood Culture - Preliminary NO GROWTH IN 1 DAY Resulted 10/24/17 13:55 Blood Peripheral Anaerobic Blood Culture - Preliminary NO GROWTH IN 1 DAY Resulted 10/19/17 12:30 Stool Stool Stool Occult Blood (NAOMI) - Final HEMOCCULT NEGATIVE Complete 10/24/17 09:11 Sputum Endotracheal Gram Stain - Final Resulted 10/24/17 09:11 Sputum Endotracheal Sputum Culture - Preliminary HEAVY GROWTH NORMAL RESPIRATORY JANENE... Resulted 10/24/17 09:00 Urine Catheterized Urine Urine Culture Pending Received Imaging Last Impressions Brain MRI 10/24/17 0600 Signed Impressions: CONCLUSION: Negative MR Brain non contrast. Neck Magnetic Resonance Angiography 10/24/17 0000 Signed Impressions: CONCLUSION: Normal study __ Percent stenosis is calculated using the diameter of the stenotic region over t he diameter of the normal distal internal carotid artery Head Magnetic Resonance Angiography 10/24/17 0000 Signed Impressions: CONCLUSION: Negative MRA Cow ([place] [facility] [place]) non contrast. Chest X-Ray 10/24/17 0000 Signed Impressions: CONCLUSION: Satisfactory endotracheal tube positioning. Bilateral infiltrates. Small left e ffusion Cervical Spine MRI 10/24/17 0000 Signed Impressions: CONCLUSION: 1. 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 2. 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 3. Multilevel significant neural foraminal narrowing as detailed at each level in the above discussion. 4. Lesion involving the spinous process of T2. This is incompletely characteri zed on this exam. Consider CT scan to further assess. Head CT 10/23/17 Signed Impressions: CONCLUSION: 1. Atrophy. 2. No acute intracranial abnormality. Bone Biopsy CT 10/23/17 Signed Impressions: CONCLUSION: 1. Uncomplicated CT guided bone marrow aspirate. 2. Uncomplicated CT guided bone marrow biopsy. Bone Osseous Survey 10/20/17 Signed Impressions: CONCLUSION: Ill-defined lucencies and patchy cortical thinning of multiple bones, primarily the long bones and especially the right tibia and fibula. Extensive multiple m yeloma could certainly have this appearance in the proper clinical setting. Renal Ultrasound 10/19/17 Signed Impressions: CONCLUSION: 1. Negative renal sonogram. Physical Exam HEENT: Pale, normocephalic; atraumatic; currently maintained with oral ET tube, ventilator support NECK: Neck is supple, short CHEST: Manage breath sounds mild rhonchi CARDIAC: Regular rate and rhythm ABDOMEN: Soft, nondistended, nontender; no hepatosplenomegaly; bowel sounds are present in all four quadrants. EXTREMITIES: No lower extremity edema. 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 He is now intubated and sedated so information obtained through chart review. Now OG to [facility] with coffee ground emesis. - History of colon cancer S/P resection 10/25/2017, EGD done on 10/24/2017 with findings show LA class III esophagitis with evidence of some NG trauma. Normal stomach mucosal with normal gastric secretions without evidence of recent bleeding. Mucosa normal duodenum, retroflexion normal. Discussed findings with . Bone marrow biopsy per hematology, appreciate input. Currently in the room for supportive care with other family members. states patient had heartburn symptoms and was taking Tums approximately 2 days before admission to the hospital. Patient has a history of colon cancer in 1983. currently patient remains on ventilator support for airway protection. Noted hemoglobin 7.2 today. Plan: N.p.o. OG to [facility] Antiemetics PPI transition to IV. Monitor H/H and other labs transfuse as needed Supportive care Pt has been seen and examined by myself and Dr. Reyes and this note is written on his behalf (Myrna Castro) Physician Comments Agree with above assessment and plan, stable from GI point of view now. Will sign off for now, please notify us if needed again. (Sandip Reyes MD) Myrna Castro Oct 25, 2017 13:03 Sandip Reyes MD Oct 26, 2017 11:54
--- NOTE | 2017-10-25 13:21 | HHI.NPPN ---
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 He has been having some fatigue and weakness over the past few weeks and a CBC showed a Hgb of 7.2 prompting evaluation at the hospital. The patient's is the primary historian. Was admitted here in Jun for a L femur fx that he sustained at home while turning while moving TV tray causing a twist and fall type injury on his left leg. reports spiral fracture of his left femur that he underwent ORIF. He subsequently developed a DVT in the same leg. Renal functions during that admission were overall normal with SCr at 0.8 baseline. Serum calcium normal at this admission at 8.6-9.0. In August, he developed A fib with RVR and had acute renal insufficiency though nephrology services were not called as his functions improved with correction of RVR (admitting SCr 2.40 on 08/29 and discharge on 09/01 at 1.74). Noted mild hypercalcemia during this admission at 10.7. 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 Byrne, but was many years ago as per the . Says that he never underwent bone marrow bx, but had multiple labs that "didn't change" so they opted to stop following up. Given his recent anemia, his PCP did refer him to Dr. Jordyn Garcia, but appointment not until November. No known CKD hx. Denies any recent NVD No NSAID use No recent abx. Besides the aforementioned health history as of recent, he has been in his usual state of health as per his . Has been on Calcium 600mg with 500IU Vitamin D, with an additional Vitamin D3 1000IU daily since his femur fx. Admitting SCr 2.11 that has improved to 4.47 at consult. Serum CCa 12.9 at admission Interval History Patient remains intubated. Urine output has declined overnight. Review of Systems General Constitutional: Fatigue Objective Data Data 10/25/17 10/26/17 19:00 07:00 Intake Total 569.6 ml Balance 569.6 ml IV Total 554.6 ml Blood Product IV Normal Saline Flush 15 ml Vital Signs Date Time Temp Pulse Resp B/P (MAP) Pulse Ox O2 Delivery O2 Flow Rate FiO2 10/25/17 12:00 45 10/25/17 12:00 126 10/25/17 12:00 97.0 126 17 165/90 (115) 96 10/25/17 11:54 96.9 126 16 165/90 96 10/25/17 11:39 96.8 126 26 177/90 96 10/25/17 11:30 45 10/25/17 11:24 99 45 10/25/17 11:15 45 10/25/17 11:00 96.6 123 17 160/86 (110) 98 10/25/17 10:00 102 10/25/17 10:00 96.6 102 24 100/61 (74) 96 10/25/17 09:00 96.4 127 24 128/67 (87) 96 10/25/17 08:00 96.4 97 24 117/59 (78) 97 10/25/17 08:00 97 10/25/17 08:00 50 10/25/17 07:59 97 50 10/25/17 07:00 96.3 100 24 120/77 (91) 98 10/25/17 06:00 124 10/25/17 04:00 50 10/25/17 04:00 97.3 126 24 131/72 (91) 97 10/25/17 04:00 126 10/25/17 03:51 94 50 10/25/17 02:10 94 50 10/25/17 02:00 91 10/25/17 00:00 98.3 105 25 135/63 (87) 99 10/25/17 00:00 105 10/25/17 00:00 50 10/24/17 22:00 91 10/24/17 20:53 96 50 10/24/17 20:00 94 10/24/17 20:00 70 10/24/17 20:00 98.6 94 24 102/56 (71) 97 10/24/17 18:00 91 10/24/17 16:00 70 10/24/17 16:00 97.7 117 28 161/82 (108) 97 10/24/17 16:00 117 10/24/17 15:30 96 70 10/24/17 14:00 90 -: 10/25/17 0305 10/25/17 0305 Microbiology 10/24/17 Aerobic Blood Culture - Preliminary, Resulted NO GROWTH IN 1 DAY 6/7/18 Anaerobic Blood Culture - Preliminary, Resulted NO GROWTH IN 1 DAY Physical Exam General Appearance: Well Developed, Well Nourished, No Acute Distress, Comfortable Eyes Eye Exam: Sclera White Pulmonary Resp Exam: Clear Bilaterally, Breath Sounds Equal, No Distress Cardiology CV Exam: Regular, Normal Sinus Rhythm Gastrointestinal/Abdomen GI Exam: Soft, Non-Tender Genitourinary Exam: Clear Urine Integumentary Skin Exam: Clear, Warm Extremeties Extremities Exam: Moderate Edema (1+ pitting edema legs and hands.) Neurologic Neuro Exam: Awake, Speech Clear, Moving All Extremities Psychiatric Psych Exam: Appropriate Responses Assessment/Plan Discussed Condition With: Spouse Problem List: (1) Acute renal failure ICD Codes: N17.9 - Acute kidney failure, unspecified Status: Acute Plan: Urine output is fallen in the creatinine level is higher today. Despite ongoing aggressive hydration of the last few days his creatinine level was not improving significantly considering aggressiveness of hydration and after reviewing the labs patient has serum kapa chain serum level will over 1500 at 5385.6 mg/L with kapa chains evident in the urine and proteinuria consisting of 100% monoclonal protein according to lab. 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 Agree with reducing IV fluids at this point in time and diuretics as he is developing signs of fluid retention. Continue to monitor volume status, urine output and renal indices. I discussed with the that we may have to consider dialytic support next 24-48 hours. The dialysis procedure was reviewed with her including indications for, benefits as well as risks of dialysis including but not limited to risk of arrhythmia, hypotension and . Medications should be adjusted for the patient's renal decline. Avoid nephrotoxic agents such as iodinated contrast dyes and NSAIDs. Avoid gadolinium. (2) Hypercalcemia ICD Codes: E83.52 - Hypercalcemia Status: Acute Plan: Calcium level now showing some signs of improvement. (3) Hypokalemia ICD Codes: E87.6 - Hypokalemia Plan: Potassium chloride ordered. Follow-up potassium level tomorrow. (4) Atrial fibrillation ICD Codes: I48.91 - Unspecified atrial fibrillation Plan: Management as per primary team (5) HTN (hypertension) ICD Codes: I10 - Essential (primary) hypertension Status: Chronic Plan: Continue current regimen Given PRN Labetalol and Clonidine today. Will adjust further tomorrow if needed. (6) Hypernatremia ICD Codes: E87.0 - Hyperosmolality and hypernatremia Status: Acute Juan Ramon Carlson MD Oct 25, 2017 13:21
[2017-10-25] MEDS ORDERED: FUROSEMIDE 40 MG/4 ML VIAL IV PUSH ONE (13:30)
[2017-10-25] MEDS: DEXAMETHASONE SOD PHOS 4 MG/ML VIAL IV PUSH SCH (13:49)
[2017-10-25 18:04] LABS: HEMATOCRIT 28.8 % (39.0-51.0); HEMOGLOBIN 9.6 GM/DL (13.0-17.0)
[2017-10-25] MEDS: PANTOPRAZOLE SODIUM 40 MG VIAL IV PUSH SCH (22:46)
[2017-10-26] VITALS (63 sets, daily range): BP systolic 151–202; BP diastolic 73–106; PULSE 69–94; RESP 24; TEMP 94.3–97.4; O2SAT 95–98
[2017-10-26] MEDS: PIPERACIL-TAZO 2.25 GM PREMIX 50 ML IV SCH ×3 (00:35→17:44)
[2017-10-26] MEDS: cloNIDine HCL 0.1 MG TAB PO PRN ×2 (01:57→10:21)
[2017-10-26] MEDS: DEXMEDETOMIDINE INJ 200 MCG in SODIUM CHLORIDE 0.9% INJ 50 ML IV PRN ×11 (02:47→23:41)
[2017-10-26] MEDS: RESP: ALBUTEROL 2.5 MG/IPRATROPIUM 0.5 MG NEB (SCH) NEB ×6 (03:29→23:21)
[2017-10-26] MEDS: MORPHINE SULFATE 4 MG/ML INJ IV PRN (03:31)
[2017-10-26] MEDS: PROPOFOL 1000 MG/100 ML INJ 100 ML IV PRN ×3 (04:39→23:41)
[2017-10-26] MEDS: hydrALAZINE HCL 25 MG TAB PO SCH ×3 (04:47→21:34)
[2017-10-26] MEDS: LEVOTHYROXINE SODIUM 75 MCG TAB PO SCH (04:47)
[2017-10-26] MEDS: DILTIAZEM HCL 60 MG TAB OG-TUBE SCH ×4 (04:47→23:40)
[2017-10-26 05:21] LABS: AUTOMATED NEUTROPHIL # 9.7 TH/MM3 (1.8-7.7); BASOPHIL % 0.2 % (0.0-2.0); EOSINOPHIL # 0.1 TH/MM3 (0-0.4); EOSINOPHIL % 0.5 % (0.0-4.0); HEMATOCRIT 29.2 % (39.0-51.0); HEMOGLOBIN 9.8 GM/DL (13.0-17.0); LYMPH % 5.8 % (9.0-44.0); LYMPHOCYTE # 0.6 TH/MM3 (1.0-4.8); MEAN CELL VOLUME 86.5 FL (80.0-100.0); MEAN CORPUSCULAR HEMOGLOBIN 29.2 PG (27.0-34.0); MEAN CORPUSCULAR HGB CONC 33.7 % (32.0-36.0); MONO % 2.2 % (0.0-8.0); MONOCYTE # 0.2 TH/MM3 (0-0.9); NEUT % 91.3 % (16.0-70.0); PLATELET COUNT 167 TH/MM3 (150-450); RED BLOOD COUNT 3.37 MIL/MM3 (4.50-5.90); WHITE BLOOD COUNT 10.6 TH/MM3 (4.0-11.0)
[2017-10-26 05:57] LABS: BICARBONATE 14.9 MEQ/L (21.0-32.0); CALCIUM 10.7 MG/DL (8.5-10.1); CREATININE 6.11 MG/DL (0.60-1.30); MAGNESIUM 1.9 MG/DL (1.5-2.5); PHOSPHORUS 6.3 MG/DL (2.5-4.9)
[2017-10-26] MEDS: CHLORHEXIDINE GLUCONATE 2 % 1 PACK (2 CLOTHS)(taper/protocol) TOPICAL SCH (06:14)
[2017-10-26] MEDS ORDERED: GLUCAGON 1 MG/ML VIAL OTHER PRN (07:30)
[2017-10-26] MEDS ORDERED: DEXTROSE 50% IN WATER 50 ML VIAL(D50) IV PUSH PRN (07:30)
--- NOTE | 2017-10-26 07:43 | HHI.CCPN ---
Subjective Remarks/Hospital Course 10/23: Mr. Mcintosh is an 82-year-old male. He came in the hospital secondary to progressive anemia. Hemoglobin today is 6.9. He has a past history of bleed which was not found to be GI related. Additional findings today are acute renal failure and hypercalcemia. He recalls that he might have had some kidney disease in the past but cannot specify. Looking in our past records his highest creatinine value have been 3.5 but currently his creatinine levels at 5.11. She does not report being dehydrated. He has had a fracture approximately 3 months ago and has been on bedrest until recently for this. Additionally he is on Eliquis. Eliquis combined with his renal condition may be contributory to blood loss. Renal dysfunction can also be contributory to his hypercalcemia. Shortness of breath and weakness have been his primary complaints. Patient underwent bone marrow biopsy by interventional radiology on 10/23. Around 9 PM patient developed altered mental status with speech difficulty and questionable left-sided facial weakness. Stroke alert was called. Head CT done during stroke alert was negative for bleed. Dr. Saunders from neurology was contacted. Patient's blood pressure at that time was 218 systolic. She ordered a nicardipine drip and transferred patient to ICU with critical care consult. I evaluated patient following his arrival to the ICU. At that time patient appeared comfortable not in any acute distress. He was moving all 4 extremities at the time and was completely awake and alert and oriented. He did have some tremors in bilateral upper extremities however stated that he was feeling cold and shivering. 10/24: Patient did take his aspirin after talking to his last night. He did receive 0.5 mg Ativan last night for agitation and morphine around 4 AM for pain and subsequently this morning was noted to be lethargic. His O2 sats dropped and he was placed on nonrebreather facemask. His sats improved with IV Narcan however he was also getting hypothermic and bradycardic. I spoke with patient's at bedside as patient did not appear to be protecting his airway. I proceeded with endotracheal intubation and patient was placed on mechanical ventilation. He is awaiting MRI brain. 10/25 MRI brain negative. On propofol, performing sedation vacation and will proceed with SBT and extubate if able. Oliguric overnight, UOP only 50 mL over the night nurse. Creatinine 4.87. Initiating diuretic, discussed with Dr. Carlson. Transfusing 1 unit PRBC for Hgb 7.2 per hematology. On heparin drip. Subjective: 10/26 Pathology now indicating MM. Was started on decadron yesterday by hematology. Was slow to wake up off propofol but was following commands yesterday evening on precedex drip. Propofol resumed overnight in view of some agitation and hypertension.. Would plan for CPAP trial and possible extubation today but will hold off on extubation for now as he may require Vascath placement for dialysis start. Will defer to nephrology, however creatinine continues uptrend and he is oliguric despite diuretic. Objective Vital Signs Date Time Temp Pulse Resp B/P (MAP) Pulse Ox O2 Delivery O2 Flow Rate FiO2 10/26/17 06:00 82 10/26/17 04:06 95 45 10/26/17 04:00 97.3 24 178/86 (116) 10/24/17 07:53 Non-Rebreather 15.00 Intake and Output 10/26/17 10/26/17 10/27/17 08:00 16:00 00:00 Intake Total 593 ml Output Total 300 ml Balance 293 ml Result Diagram: 10/26/17 0459 10/26/17 0459 Imaging Last Impressions Head CT 10/23/17 0000 Signed Impressions: CONCLUSION: 1. Atrophy. 2. No acute intracranial abnormality. Bone Biopsy CT 10/23/17 0000 Signed Impressions: CONCLUSION: 1. Uncomplicated CT guided bone marrow aspirate. 2. Uncomplicated CT guided bone marrow biopsy. Bone Osseous Survey 10/20/17 0000 Signed Impressions: CONCLUSION: Ill-defined lucencies and patchy cortical thinning of multiple bones, primarily the long bones and especially the right tibia and fibula. Extensive multiple m yeloma could certainly have this appearance in the proper clinical setting. Renal Ultrasound 10/19/17 0000 Signed Impressions: CONCLUSION: 1. Negative renal sonogram. Objective Remarks Drips: Heparin Precedex 1.3 mcg/kg/h Propofol 20 mg/kg/min --> just placed on hold Gen: Elderly obese male who is orotracheally intubated. He has been on sedation. HEENT/ Neuro: Sedated, orally intubated, Pallor present, no icterus, mucous membranes moist Chest/Pulm: orotracheally intubated, on mechanical ventilation. Coarse breath sounds bilaterally. No wheeze. CVS: S1-S2 irregularly irregular, no murmur GI/abdomen: soft, nontender, bowel sounds present. Bowel sounds sluggish : Mathis in place with limited light blanka urine in the Mathis Extremities: warm bilaterally, 1+ edema NEURO: Pupils pinpoint and sluggishly reactive bilaterally. Withdraws BLE A/P Assessment and Plan 82 y/o male with Acute Encephalopathy Hypothermia Uncontrolled hypertension History of atrial fibrillation anemia hypercalcemia acute renal failure. h/o MGUS now appears Multiple Myeloma chronic kidney disease hypothyroidism h/o colon cancer Plan: Neuro Acute encephalopathy -Stroke alert called and Dr. Saunders consulted for neurology. -Aspirin 81 mg p.o. daily. -Continue anticoagulation with heparin drip. -Intubated for airway protection. -2D echo pending., MRA brain/ neck - no abnormality -MRI brain negative -MRI Cspine with degeneration C3/4 and C4/[address] León consulted NSG. -Precedex drip during vent weaning. - PT consulted -ammonia level normal. f/u serum viscosity. Cardiovascular: HTN AFIB Had epsiode of bradycardia 10/24 so cardizem was held. Now back on Cardizem 60 mg q6 hours. Home Cardizem is 240 mg p.o. daily. Increase to metoprolol 50 mg p.o. twice daily Hydralazine 50 every 8 hours per nephrology . Pulmonary: Acute hypercapnic respiratory failure -Intubated for airway protection and placed on mechanical ventilation -Daily CPAP trial -Vent bundle, bronchodilators as needed. GI/liver: Esophagitis History of colon cancer -OG tube placed. Hold tube feeds for spontaneous breathing trial. Initiate tube feeds if not extubating. EGD 10/24LA class C esophagitis with NG trauma. Normal mucosa of stomach, duodenum. Continue PPI per GI recommendation Renal/: ZOFIA overlying CKD Light chain cast nephropathy -Received pamidronate for hypercalcemia per nephrology on 10/23. -Now I>>O, oliguric. -Increase diuretic. Appears will require HD, will defer to Nephrology -Hypercalcemia probably secondary to multiple myeloma, downtrending. -Nephrology following. Dr. Carlson [facility]: Plasma cell myeloma Chronic anticoagulation due to history of atrial fibrillation and lower extremity DVT -Being followed by oncology. Has known MGUS. - bone marrow biopsy 10/23 c/w myeloma -Decadron started 10/25 -Continue anticoagulation in view of history of A. fib , LE DVT -Transfused 1 unit packed red cells 10/25. Hemoglobin now 9.8 -Started on aspirin 10/23 ID: -Pancultures ordered 10/24 -Minimal aspiration noted during intubation. -Was placed empiric antibiotic coverage with IV Zosyn and the of hypothermia and the worsening mental status. Microbiology: 10/24urine culture negative 10/24 sputum culture negative. 10/24 blood culture no growth to date Endocrine: Hypothyroidism Continue Synthroid 75 mg p.o. daily Monitor glucose while on Decadron and initiate low-dose insulin sliding scale as indicated. Prophylaxis: -/SCDs. Heparin drip as per above. PPI Discussed current clinical status with patient's in detail. Multiple questions answered. Discussed with Dr. Carlson and with Skylar Sanchez and Dr. Garcia Love. Level 3 f/u. Verona Cabrera MD Oct 26, 2017 07:43
[2017-10-26] MEDS: INSULIN ASPART SUPPLEMENTAL SCALE SQ SCH ×3 (08:00→20:00)
[2017-10-26] MEDS: MULTIVITAMIN TAB PO SCH (08:52)
[2017-10-26] MEDS: ASPIRIN 81 MG CHEW TAB CHEW SCH (08:52)
[2017-10-26] MEDS: PANTOPRAZOLE SODIUM 40 MG VIAL IV PUSH SCH ×2 (08:52→21:34)
[2017-10-26] MEDS: DEXAMETHASONE SOD PHOS 4 MG/ML VIAL IV PUSH SCH (08:52)
[2017-10-26] MEDS: DOCUSATE SODIUM 100 MG CAP PO SCH ×2 (08:53→21:00)
[2017-10-26] MEDS: CHOLECALCIFEROL (VIT D3) 1000 UNIT TAB PO SCH (08:53)
[2017-10-26] MEDS: METOPROLOL TARTRATE 50 MG TAB PO SCH ×2 (08:53→21:34)
[2017-10-26] MEDS: SODIUM CHLORIDE 0.9% FLUSH 10 ML FLUSH IV FLUSH SCH ×2 (08:53→21:34)
[2017-10-26] MEDS: CHLORHEXIDINE 0.12% (ORAL KIT) 15 ML CUP MT SCH ×2 (08:54→21:33)
[2017-10-26] MEDS: FUROSEMIDE 100 MG/10 ML VIAL IV PUSH SCH ×3 (10:20→21:35)
[2017-10-26] MEDS: SODIUM BICARBONATE 8.4% INJ 150 MEQ in WATER STERILE FOR INJ 850 ML IV SCH (11:19)
--- NOTE | 2017-10-26 11:26 | PD.ONC.PN ---
Subjective Subjective Remarks Patient remains hypothermic. at bedside. plan is for vas-cath placement and dialysis today. remains intubated, sedated. Objective Data Date Time Temp Pulse Resp B/P (MAP) Pulse Ox O2 Delivery O2 Flow Rate FiO2 10/26/17 10:00 94.8 74 24 170/104 (126) 97 10/26/17 10:00 80 10/26/17 09:45 94.8 80 24 97 10/26/17 09:40 94.8 81 24 175/100 (125) 97 10/26/17 09:30 95.0 83 24 97 10/26/17 09:20 95.0 82 24 183/87 (119) 97 10/26/17 09:15 95.0 81 24 97 10/26/17 09:00 95.2 82 24 193/92 (125) 97 10/26/17 08:45 95.5 83 24 97 10/26/17 08:40 95.5 83 24 169/96 (120) 97 10/26/17 08:30 95.5 83 24 97 10/26/17 08:20 95.5 83 24 171/94 (119) 97 10/26/17 08:15 95.5 84 24 97 10/26/17 08:00 95.7 84 24 181/95 (123) 97 10/26/17 08:00 82 10/26/17 08:00 45 10/26/17 07:45 97 45 10/26/17 06:00 82 10/26/17 04:06 95 45 10/26/17 04:00 45 10/26/17 04:00 87 10/26/17 04:00 97.3 87 24 178/86 (116) 95 10/26/17 02:00 86 10/26/17 00:00 97.4 86 24 165/84 (111) 95 10/26/17 00:00 45 10/26/17 00:00 86 10/25/17 23:30 95 45 10/25/17 22:00 84 10/25/17 20:15 97 45 10/25/17 20:00 97.5 64 23 137/76 (96) 98 10/25/17 20:00 64 10/25/17 20:00 45 10/25/17 18:00 90 10/25/17 16:00 98.4 94 19 141/77 (98) 95 10/25/17 16:00 45 10/25/17 16:00 94 10/25/17 15:34 96 45 10/25/17 15:00 98.4 83 20 126/64 (84) 96 10/25/17 14:00 91 20 118/56 (76) 96 10/25/17 14:00 90 10/25/17 13:00 97.5 128 27 130/57 (81) 94 10/25/17 12:00 45 10/25/17 12:00 126 10/25/17 12:00 97.0 126 17 165/90 (115) 96 10/25/17 11:54 96.9 126 16 165/90 96 10/25/17 11:39 96.8 126 26 177/90 96 10/25/17 11:30 45 10/25/17 11:24 99 45 10/26/17 10/26/17 10/26/17 07:00 15:00 23:00 Intake Total 643 ml Output Total 300 ml Balance 343 ml Result Diagram: 10/26/17 0459 10/26/17 0459 Laboratory Results Laboratory Tests Test 10/25/17 15:50 10/25/17 22:21 10/26/17 04:59 Activated Partial Thromboplast Time 85.1 SEC 78.7 SEC 54.5 SEC Ammonia 29 MCMOL/L White Blood Count 10.6 TH/MM3 Red Blood Count 3.37 MIL/MM3 Hemoglobin 9.8 GM/DL Hematocrit 29.2 % Mean Corpuscular Volume 86.5 FL Mean Corpuscular Hemoglobin 29.2 PG Mean Corpuscular Hemoglobin Concent 33.7 % Red Cell Distribution Width 18.0 % Platelet Count 167 TH/MM3 Mean Platelet Volume 8.0 FL Neutrophils (%) (Auto) 91.3 % Lymphocytes (%) (Auto) 5.8 % Monocytes (%) (Auto) 2.2 % Eosinophils (%) (Auto) 0.5 % Basophils (%) (Auto) 0.2 % Neutrophils # (Auto) 9.7 TH/MM3 Lymphocytes # (Auto) 0.6 TH/MM3 Monocytes # (Auto) 0.2 TH/MM3 Eosinophils # (Auto) 0.1 TH/MM3 Basophils # (Auto) 0.0 TH/MM3 CBC Comment DIFF FINAL Differential Comment Blood Urea Nitrogen 63 MG/DL Creatinine 6.11 MG/DL Random Glucose 157 MG/DL Calcium Level 10.7 MG/DL Phosphorus Level 6.3 MG/DL Magnesium Level 1.9 MG/DL Sodium Level 140 MEQ/L Potassium Level 3.6 MEQ/L Chloride Level 108 MEQ/L Carbon Dioxide Level 14.9 MEQ/L Anion Gap 17 MEQ/L Estimat Glomerular Filtration Rate 9 ML/MIN Culture Results Microbiology Date/Time Source Procedure Growth Status 10/24/17 13:55 Blood Peripheral Aerobic Blood Culture - Preliminary NO GROWTH IN 2 DAYS Resulted 10/24/17 13:55 Blood Peripheral Anaerobic Blood Culture - Preliminary NO GROWTH IN 2 DAYS Resulted 10/24/17 13:06 Blood Peripheral Aerobic Blood Culture - Preliminary NO GROWTH IN 2 DAYS Resulted 10/24/17 13:06 Blood Peripheral Anaerobic Blood Culture - Preliminary NO GROWTH IN 2 DAYS Resulted 10/24/17 09:11 Sputum Endotracheal Gram Stain - Final Resulted 10/24/17 09:11 Sputum Endotracheal Sputum Culture - Preliminary HEAVY GROWTH NORMAL RESPIRATORY JANENE... Resulted 10/24/17 09:00 Urine Catheterized Urine Urine Culture - Preliminary NO GROWTH IN 24 HOURS. Resulted Administered Medications Medications (Trade) Dose Ordered Sig/Reggie Route PRN Reason Start Time Stop Time Status Last Admin Dose Admin Sodium Chloride (NS Flush) 2 ml UNSCH PRN IV FLUSH FLUSH AFTER USING IV ACCESS 10/18/17 14:15 10/25/17 08:22 Sodium Chloride (NS Flush) 2 ml BID IV FLUSH 10/18/17 21:00 10/26/17 08:53 Morphine Sulfate (Morphine Inj) 4 mg Q3H PRN IV Pain 6-10;if unable to take PO 10/18/17 14:45 10/26/17 03:31 Naloxone HCl (Narcan Inj) 0.4 mg UNSCH PRN IV PUSH SEE LABEL COMMENTS 10/18/17 14:15 10/24/17 06:58 Magnesium Hydroxide (Milk Of Magnesia Liq) 30 ml Q12H PRN PO Mild constipation 10/18/17 14:15 10/21/17 08:17 Cholecalciferol (Vitamin D3) 2,000 units DAILY PO 10/19/17 09:00 10/26/17 08:53 Levothyroxine Sodium (Synthroid) 75 mcg DAILY@0600 PO 10/19/17 06:00 10/26/17 04:47 Multivitamins (Theragran) 1 tab DAILY PO 10/19/17 09:00 10/26/17 08:52 Docusate Sodium (Colace) 100 mg BID PO 10/18/17 21:00 10/25/17 08:22 Clonidine (Catapres) 0.1 mg Q6H PRN PO SBP>160, DBP>90 10/18/17 18:30 10/26/17 10:21 Diltiazem HCl (Cardizem Cd) 240 mg DAILY PO 10/20/17 09:00 Future Hold 10/23/17 10:42 Hydralazine HCl (Apresoline) 50 mg Q8HR PO 10/21/17 22:00 10/26/17 04:47 Nicardipine HCl 25 mg/Sodium Chloride 260 ml @ 52 mls/hr TITRATE PRN IV Blood Pressure Management 10/23/17 22:30 10/24/17 05:59 Miscellaneous Information ([facility] [place] [facility] Patient in critical care unit? Ass... [id number] .XX 10/23/17 23:00 10/23/17 23:00 Chlorhexidine Gluconate (Chlorhexidine 2% Cloth) 3 pack DAILY@04 TOPICAL 10/24/17 04:00 10/28/17 04:01 10/26/17 06:14 Aspirin (Aspirin Chew) 81 mg DAILY CHEW 10/24/17 09:00 10/26/17 08:52 Chlorhexidine Gluconate (Peridex 0.12% Liq) 15 ml BID@08,20 MT 10/24/17 20:00 10/26/17 08:54 Propofol 100 ml @ 3.27 mls/hr TITRATE PRN IV SEDATION 10/24/17 08:45 10/26/17 10:21 Famotidine (Pepcid) 10 mg BID PO 10/24/17 11:00 Future Hold 10/24/17 12:19 Heparin Sodium/ Dextrose 250 ml @ 18 mls/hr TITRATE PRN IV Coagulation Management 10/24/17 17:45 Future Hold 10/25/17 12:35 Albuterol/ Ipratropium (Duoneb Neb) 1 ampule Q4HR NEB NEB 10/25/17 00:00 10/26/17 07:47 Piperacillin Sod/ Tazobactam Sod 50 ml @ 100 mls/hr Q8H IV 10/25/17 18:00 10/26/17 10:00 Pantoprazole Sodium (Protonix Inj) 40 mg Q12H IV PUSH 10/25/17 21:00 10/26/17 08:52 Diltiazem HCl (Cardizem) 60 mg Q6HR OG-TUBE 10/25/17 12:00 10/26/17 04:47 Dexmedetomidine HCl 200 mcg/ Sodium Chloride 52 ml @ 5.53 mls/hr TITRATE PRN IV SEDATION 10/25/17 11:30 10/26/17 07:53 Dexamethasone Sodium Phosphate (Decadron Inj) 10 mg DAILY IV PUSH 10/25/17 14:00 10/28/17 09:01 10/26/17 08:52 Furosemide (Lasix Inj) 60 mg Q6H IV PUSH 10/26/17 11:00 10/26/17 10:20 Metoprolol Tartrate (Lopressor) 50 mg BID PO 10/26/17 09:00 10/26/17 08:53 Sodium Bicarbonate 150 meq/Sterile Water 1,000 ml @ 50 mls/hr Q20H IV 10/26/17 09:00 10/26/17 11:19 Objective Remarks GENERAL: Intubated, sedated male, supine in bed. SKIN: Warm and dry. HEAD: Normocephalic. EYES: No injection or drainage. NECK: Supple, trachea midline. CARDIOVASCULAR: Regular rate and rhythm RESPIRATORY: anterior gutierrez clear. on mechanical ventilation. GASTROINTESTINAL: Abdomen soft, non-tender, nondistended. EXTREMITIES: No cyanosis NEUROLOGICAL: intubated, sedated Assessment/Plan Assessment 82y/o male with anemia, hypercalcemia, and acute renal failure. h/o MGUS, hypertension, chronic kidney disease, hypothyroidism, colon cancer, anemia. Plan 1. 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 --urine protein=~3g --FeG=[id number]; free kappa light chains =5K --abnormal discrete band in gamma region noted. --s/p Aredia 60mg on 10/2310/25/17: await bone marrow biopsy results. discussed with at bedside. will give 1 unit pRBC for hgb 7.2. start decadron 10mg IV daily 10/26/17: continue Decadron 10mg IV. may consider increasing to 40mg tomorrow after first dialysis. 2. Atrial fibrillation and history of left lower extremity deep venous thrombosis. on heparin gtt (on hold this AM for vas-cath placement) monitor H/H closely. 3. Respiratory failure: on mechanical ventilation. management per critical care. 4. renal failure: starting dialysis today. Attending Statement The exam, history, and the medical decision-making described in the above note were completed with the assistance of the mid-level provider. I reviewed and agree with the findings presented. I attest that I had a [id number] encounter with the patient on the same day, and personally performed and documented my assessment and findings in the medical record. Discussed w/ cable former IgGkappa monoclonal protein and second kappa monoclonal protein. 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 ? MGUS plus light chain- pending final BM bx. Discussed starting tx Decadron pulse 40mg D1-4, anticipate starting tomorrow. Continue supportive treatment. Explained to family and answered questions. Skylar Sanchez Oct 26, 2017 11:26 Margi Horowitz MD Oct 26, 2017 14:30
--- NOTE | 2017-10-26 12:04 | PD.PROCEDR ---
Procedure Note Procedure DATE: 10/26/17 PROCEDURE Right internal jugular vein Vas-Cath placement. INDICATION: Hemodialysis access CONSENT Informed consent for procedure was obtained from patient's after discussion of risks, benefits, alternatives DESCRIPTION OF THE PROCEDURE The patient was placed in supine position, mild Trendelenburg. The skin was cleansed with Chloraprep x3. Additional barrier precautions included large sterile drape, sterile gloves, sterile gown, face mask, and hat. 1 % lidocaine was used for local anesthesia. Under direct ultrasound guidance and on single attempt, the vein was accessed with an introducer needle. The guide wire was advanced and the tract was dilated. Using Seldinger technique a 14 Romanian double-lumen Vas-Cath was advanced to a depth of 17 centimeters. The guide wire was removed. All ports had good return of dark venous blood and flushed easily with saline. The central line was secured with 2.0 silk. A sterile dressing with antibiotic disc was applied. ESTIMATED BLOOD LOSS: Minimal COMPLICATIONS No apparent complications. STAT chest x-ray demonstrates satisfactory Vas-Cath position without apparent complication. Verona Cabrera MD Oct 26, 2017 12:03
--- NOTE | 2017-10-26 12:11 | PD.CONS ---
History of Present Illness Service Neurosurgery Consult Requested By Neurology service Reason for Consult Cervical stenosis Primary Care Physician Non-Staff Diagnoses: (1) Cervical spinal stenosis (2) Cervical disc disease with myelopathy History of Present Illness 82-year-old male who presented to the hospital 10/23/2017 with anemia, acute on chronic kidney disease with hypercalcemia. Patient developed altered mental status, speech deficit, possible left-sided facial weakness following admission on 10/23/2017, prompting a stroke alert with subsequent negative CT scan head. Patient admitted to intensive surgical care unit. Further decline in mental status and increased respiratory difficulty prompted intubation on 10/24/2017. Subsequent MRI of the brain negative. However MRI cervical spine has revealed significant upper cervical stenosis. Patient has a history of multiple other medical problems including atrial fibrillation, left lower extremity DVT, colon cancer with previous colon resection, hypertension, monoclonal gammopathy. Review of Systems Unable to obtain review of systems from the patient. Intubated. Past Family Social History Allergies: Coded Allergies: No Known Allergies (Verified Allergy, Unknown, 06/24/17) Past Medical History Atrial fibrillation Hypertension Lower extremity DVT Anemia Colon cancer Renal failure Hypothyroidism Past Surgical History Anterior cervical fusion Hip arthroplasty Knee arthroplasty Colon resection Reported Medications Reported Meds & Active Scripts Active Calcium 600+D 200 (Calcium Carbonate-Vitamin D) 600-200 Mg-Unit Tab 1 Tab PO BID Vitamin D3 (Cholecalciferol) 2,000 Unit Cap 2,000 Units PO DAILY Reported Metoprolol Tartrate 25 Mg Tab 12.5 Mg PO BID Cartia Xt (Diltiazem ER 24 HR) 120 Mg Caper 240 Mg PO BID Multiple Vitamin 1 Tab 1 Tab PO DAILY Levothyroxine (Levothyroxine Sodium) 75 Mcg Tab 75 Mcg PO DAILY Family History He has a sister with colon cancer Social History Previous pipe smoker No significant alcohol Physical Exam Vital Signs Vital Signs Date Time Temp Pulse Resp B/P (MAP) Pulse Ox O2 Delivery O2 Flow Rate FiO2 10/26/17 11:49 96 45 10/26/17 10:00 94.8 74 24 170/104 (126) 97 10/26/17 10:00 80 10/26/17 09:45 94.8 80 24 97 10/26/17 09:40 94.8 81 24 175/100 (125) 97 10/26/17 09:30 95.0 83 24 97 10/26/17 09:20 95.0 82 24 183/87 (119) 97 10/26/17 09:15 95.0 81 24 97 10/26/17 09:00 95.2 82 24 193/92 (125) 97 10/26/17 08:45 95.5 83 24 97 10/26/17 08:40 95.5 83 24 169/96 (120) 97 10/26/17 08:30 95.5 83 24 97 10/26/17 08:20 95.5 83 24 171/94 (119) 97 10/26/17 08:15 95.5 84 24 97 10/26/17 08:00 95.7 84 24 181/95 (123) 97 10/26/17 08:00 82 10/26/17 08:00 45 10/26/17 07:45 97 45 10/26/17 06:00 82 10/26/17 04:06 95 45 10/26/17 04:00 45 10/26/17 04:00 87 10/26/17 04:00 97.3 87 24 178/86 (116) 95 10/26/17 02:00 86 10/26/17 00:00 97.4 86 24 165/84 (111) 95 10/26/17 00:00 45 10/26/17 00:00 86 10/25/17 23:30 95 45 10/25/17 22:00 84 10/25/17 20:15 97 45 10/25/17 20:00 97.5 64 23 137/76 (96) 98 10/25/17 20:00 64 10/25/17 20:00 45 10/25/17 18:00 90 10/25/17 16:00 98.4 94 19 141/77 (98) 95 10/25/17 16:00 45 10/25/17 16:00 94 10/25/17 15:34 96 45 10/25/17 15:00 98.4 83 20 126/64 (84) 96 10/25/17 14:00 91 20 118/56 (76) 96 10/25/17 14:00 90 10/25/17 13:00 97.5 128 27 130/57 (81) 94 Physical Exam GENERAL: This is a well-nourished, well-developed patient, in no apparent distress. SKIN: No rashes, ecchymoses or lesions. Cool and dry. HEAD: Atraumatic. Normocephalic. No temporal or scalp tenderness. EYES: Pupils equal round and reactive. Extraocular motions intact. No scleral icterus. No injection or drainage. ENT: Nose without bleeding, purulent drainage or septal hematoma. Throat without erythema, tonsillar hypertrophy or exudate. Uvula midline. Airway patent. NECK: Trachea midline. No JVD or lymphadenopathy. Supple, nontender, no meningeal signs. CARDIOVASCULAR: Regular rate and rhythm without murmurs, gallops, or rubs. RESPIRATORY: Clear to auscultation. Breath sounds equal bilaterally. No wheezes , rales, or rhonchi. GASTROINTESTINAL: Abdomen soft, non-tender, nondistended. No hepato-splenomegaly , or palpable masses. No guarding. MUSCULOSKELETAL: Extremities without clubbing, cyanosis, or edema. No joint tenderness, effusion, or edema noted. No calf tenderness. Negative Homans sign bilaterally. NEUROLOGICAL: Awake and alert. Cranial nerves II through XII intact. Motor and sensory grossly within normal limits. Five out of 5 muscle strength in all muscle groups. Normal speech. Laboratory Laboratory Tests Test 10/25/17 15:50 10/25/17 22:21 10/26/17 04:59 Activated Partial Thromboplast Time 85.1 78.7 54.5 Ammonia 29 White Blood Count 10.6 Red Blood Count 3.37 Hemoglobin 9.8 Hematocrit 29.2 Mean Corpuscular Volume 86.5 Mean Corpuscular Hemoglobin 29.2 Mean Corpuscular Hemoglobin Concent 33.7 Red Cell Distribution Width 18.0 Platelet Count 167 Mean Platelet Volume 8.0 Neutrophils (%) (Auto) 91.3 Lymphocytes (%) (Auto) 5.8 Monocytes (%) (Auto) 2.2 Eosinophils (%) (Auto) 0.5 Basophils (%) (Auto) 0.2 Neutrophils # (Auto) 9.7 Lymphocytes # (Auto) 0.6 Monocytes # (Auto) 0.2 Eosinophils # (Auto) 0.1 Basophils # (Auto) 0.0 CBC Comment DIFF FINAL Differential Comment Blood Urea Nitrogen 63 Creatinine 6.11 Random Glucose 157 Calcium Level 10.7 Phosphorus Level 6.3 Magnesium Level 1.9 Sodium Level 140 Potassium Level 3.6 Chloride Level 108 Carbon Dioxide Level 14.9 Anion Gap 17 Estimat Glomerular Filtration Rate 9 Date/Time Source Procedure Growth Status 10/24/17 13:55 Blood Peripheral Aerobic Blood Culture - Preliminary NO GROWTH IN 2 DAYS Resulted 10/24/17 13:55 Blood Peripheral Anaerobic Blood Culture - Preliminary NO GROWTH IN 2 DAYS Resulted 10/19/17 12:30 Stool Stool Stool Occult Blood (NAOMI) - Final HEMOCCULT NEGATIVE Complete 10/24/17 09:11 Sputum Endotracheal Gram Stain - Final Complete 10/24/17 09:11 Sputum Endotracheal Sputum Culture - Final HEAVY GROWTH NORMAL RESPIRATORY JANENE Complete 10/24/17 09:00 Urine Catheterized Urine Urine Culture - Preliminary NO GROWTH IN 24 HOURS. Resulted Result Diagram: 10/26/17 0459 10/26/17 0459 Imaging 10/24/2017 MRI cervical spine images are reviewed. The study reveals previous C5- 6-7 ACDF which appears intact. There is adequate spinal cord decompression at the previous surgical levels. Minimal C3-4 retrolisthesis is present. There is a rather severe C3-4 and at least moderate C4-5 posterior osteophytic disc complex which along with posterior facet and ligament hypertrophy causes severe canal stenosis at the C3-4 and to lesser extent C4-5 levels. AP thecal sac dimension at the C3-4 level is 4 mm. There is a moderate area of increased signal intensity within the spinal cord at the C3-4 level. Axial views reveal a prominent central to left greater than right posterior ossific disc complex at the C3-4 level with severe spinal cord compression and severe bilateral foraminal stenosis. Somewhat lesser but still at least moderate stenosis and cord compression at C4-5. Moderately severe bilateral C4- 5 foraminal stenosis. Brain MRI 10/24/17 0600 Signed Impressions: CONCLUSION: Negative MR Brain non contrast. Neck Magnetic Resonance Angiography 10/24/17 0000 Signed Impressions: CONCLUSION: Normal study __ Percent stenosis is calculated using the diameter of the stenotic region over t he diameter of the normal distal internal carotid artery Head Magnetic Resonance Angiography 10/24/17 0000 Signed Impressions: CONCLUSION: Negative MRA [place] ([place]) non contrast. Chest X-Ray 10/24/17 Signed Impressions: CONCLUSION: Satisfactory endotracheal tube positioning. Bilateral infiltrates. Small left e ffusion Cervical Spine MRI 10/24/17 Signed Impressions: CONCLUSION: 1. 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 2. 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 3. Multilevel significant neural foraminal narrowing as detailed at each level in the above discussion. 4. Lesion involving the spinous process of T2. This is incompletely characteri zed on this exam. Consider CT scan to further assess. Head CT 10/23/17 Signed Impressions: CONCLUSION: 1. Atrophy. 2. No acute intracranial abnormality. Bone Biopsy CT 10/23/17 Signed Impressions: CONCLUSION: 1. Uncomplicated CT guided bone marrow aspirate. 2. Uncomplicated CT guided bone marrow biopsy. Bone Osseous Survey 10/20/17 Signed Impressions: CONCLUSION: Ill-defined lucencies and patchy cortical thinning of multiple bones, primarily the long bones and especially the right tibia and fibula. Extensive multiple m yeloma could certainly have this appearance in the proper clinical setting. Renal Ultrasound 10/19/17 Signed Impressions: CONCLUSION: 1. Negative renal sonogram. Assessment and Plan Assessment and Plan Impression: 1. Cervical myelopathy 2. 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 Positive increased signal intensity within the cord at the C3-4 level 3. Acute renal failure with chronic kidney disease 4. History of atrial fibrillation on chronic anticoagulation 5. Respiratory failure requiring intubation 6. Plasma cell myeloma 7. History of colon cancer 8. Hypertension 9. Acute encephalopathy-MRI brain negative for acute event Recommendations: Will discuss findings with the patient's family Although the patient does have evidence of significant cervical myelopathy, due to his significant illnesses and what appears to be a relatively poor overall prognosis, it is recommended that any surgical intervention be postponed until his overall clinical condition improves. Mk Simms MD Oct 26, 2017 12:11
--- NOTE | 2017-10-26 12:15 | RADRPT ---
EXAM DATE: 10/26/2017 12:12 PM EDT AGE/SEX: 82 years / Male INDICATIONS: Post central line placement. CLINICAL DATA: This is the patient's initial encounter. Patient reports that signs and symptoms have been present for 3 days and indicates a pain score of Nonresponsive. MEDICAL/SURGICAL HISTORY: . Cardiovascular disease. Hypertension. Carcinoma, colon. None. COMPARISON: [facility] – [place], CHEST SINGLE AP, 10/24/2017. . FINDINGS: ET tube tip well above the keyona. Gastric tube traverses the [id number]. Interval placement of la rge bore right internal jugular catheter with tip projected over the distal superior vena cava. No ev idence of pneumothorax. Persistent patchy infiltrates in the right mid and left lower lung, stable. I ncreasing infiltrates in the medial left upper lobe. CONCLUSION: 1. Right central line in good position. No evidence of pneumothorax. 2. Bilateral infiltrates. Electronically signed by: Mason Gomez MD 10/26/2017 12:14 PM EDT
[2017-10-26] MEDS ORDERED: SODIUM CHLOR 0.9% 1000 ML INJ 1,000 ML OTHER PRN (12:43)
[2017-10-26] MEDS ORDERED: SODIUM CHLOR 0.9% 1000 ML INJ 1,000 ML IV PRN (12:43)
--- NOTE | 2017-10-26 12:43 | HHI.NPPN ---
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 He has been having some fatigue and weakness over the past few weeks and a CBC showed a Hgb of 7.2 prompting evaluation at the hospital. The patient's is the primary historian. Was admitted here in Jun for a L femur fx that he sustained at home while turning while moving TV tray causing a twist and fall type injury on his left leg. reports spiral fracture of his left femur that he underwent ORIF. He subsequently developed a DVT in the same leg. Renal functions during that admission were overall normal with SCr at 0.8 baseline. Serum calcium normal at this admission at 8.6-9.0. In August, he developed A fib with RVR and had acute renal insufficiency though nephrology services were not called as his functions improved with correction of RVR (admitting SCr 2.40 on 08/29 and discharge on 09/01 at 1.74). Noted mild hypercalcemia during this admission at 10.7. 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 Byrne, but was many years ago as per the . Says that he never underwent bone marrow bx, but had multiple labs that "didn't change" so they opted to stop following up. Given his recent anemia, his PCP did refer him to Dr. Jordyn Garcia, but appointment not until November. No known CKD hx. Denies any recent NVD No NSAID use No recent abx. Besides the aforementioned health history as of recent, he has been in his usual state of health as per his . Has been on Calcium 600mg with 500IU Vitamin D, with an additional Vitamin D3 1000IU daily since his femur fx. Admitting SCr 2.11 that has improved to 4.47 at consult. Serum CCa 12.9 at admission Interval History Patient remains intubated on ventilatory support. Poor response to diuretic therapy yesterday. Patient nonverbal. Review of Systems General Constitutional: Fatigue Objective Data Data Vital Signs Date Time Temp Pulse Resp B/P (MAP) Pulse Ox O2 Delivery O2 Flow Rate FiO2 10/26/17 11:49 96 45 10/26/17 10:00 94.8 74 24 170/104 (126) 97 6/9/18 10:00 80 10/26/17 09:45 94.8 80 24 97 10/26/17 09:40 94.8 81 24 175/100 (125) 97 10/26/17 09:30 95.0 83 24 97 10/26/17 09:20 95.0 82 24 183/87 (119) 97 10/26/17 09:15 95.0 81 24 97 10/26/17 09:00 95.2 82 24 193/92 (125) 97 10/26/17 08:45 95.5 83 24 97 10/26/17 08:40 95.5 83 24 169/96 (120) 97 10/26/17 08:30 95.5 83 24 97 10/26/17 08:20 95.5 83 24 171/94 (119) 97 10/26/17 08:15 95.5 84 24 97 10/26/17 08:00 95.7 84 24 181/95 (123) 97 10/26/17 08:00 82 10/26/17 08:00 45 10/26/17 07:45 97 45 10/26/17 06:00 82 10/26/17 04:06 95 45 10/26/17 04:00 45 10/26/17 04:00 87 10/26/17 04:00 97.3 87 24 178/86 (116) 95 10/26/17 02:00 86 10/26/17 00:00 97.4 86 24 165/84 (111) 95 10/26/17 00:00 45 10/26/17 00:00 86 10/25/17 23:30 95 45 10/25/17 22:00 84 10/25/17 20:15 97 45 10/25/17 20:00 97.5 64 23 137/76 (96) 98 10/25/17 20:00 64 10/25/17 20:00 45 10/25/17 18:00 90 10/25/17 16:00 98.4 94 19 141/77 (98) 95 10/25/17 16:00 45 10/25/17 16:00 94 10/25/17 15:34 96 45 10/25/17 15:00 98.4 83 20 126/64 (84) 96 10/25/17 14:00 91 20 118/56 (76) 96 10/25/17 14:00 90 10/25/17 13:00 97.5 128 27 130/57 (81) 94 -: 10/26/17 0459 10/26/17 0459 Physical Exam General Appearance: Well Developed, Well Nourished, No Acute Distress, Comfortable Eyes Eye Exam: Sclera White Pulmonary Resp Exam: Clear Bilaterally, Breath Sounds Equal, No Distress Cardiology CV Exam: Regular, Normal Sinus Rhythm Gastrointestinal/Abdomen GI Exam: Soft, Non-Tender Genitourinary Exam: Clear Urine Integumentary Skin Exam: Clear, Warm Extremeties Extremities Exam: Moderate Edema (1+ pitting edema legs and hands.) Neurologic Neuro Exam: Awake, Speech Clear, Moving All Extremities Psychiatric Psych Exam: Appropriate Responses Assessment/Plan Discussed Condition With: Spouse Problem List: (1) Acute renal failure ICD Codes: N17.9 - Acute kidney failure, unspecified Status: Acute Plan: No significant improvement in urine output and his azotemia continues to worsen with developing metabolic acidosis. At this point in time as discussed with critical care prudent to proceed with renal replacement therapy i.e. dialysis. With second treatment tomorrow for further fluid removal. Dialysis nurse contacted. Orders will be entered into the EMR. Despite ongoing aggressive hydration of the last few days his creatinine level was not improving significantly considering aggressiveness of hydration and after reviewing the labs patient has serum kapa chain serum level will over 1500 at 5385.6 mg/L with kapa chains evident in the urine and proteinuria consisting of 100% monoclonal protein according to lab. 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 Total time spent direct patient care 38 minutes. Medications should be adjusted for the patient's renal decline. Avoid nephrotoxic agents such as iodinated contrast dyes and NSAIDs. Avoid gadolinium. (2) Hypercalcemia ICD Codes: E83.52 - Hypercalcemia Status: Acute Plan: Calcium level now showing some signs of improvement. (3) Atrial fibrillation ICD Codes: I48.91 - Unspecified atrial fibrillation Plan: Management as per primary team (4) HTN (hypertension) ICD Codes: I10 - Essential (primary) hypertension Status: Chronic Plan: Continue current regimen Given PRN Labetalol and Clonidine today. Will adjust further tomorrow if needed. Juan Ramon Carlson MD Oct 26, 2017 12:43
[2017-10-26] MEDS ORDERED: GELATIN 12 MM/7 MM FOAM TOP PRN (12:45)
[2017-10-26] MEDS ORDERED: cloNIDine HCL 0.1 MG TAB PO PRN (12:45)
[2017-10-26] MEDS ORDERED: ALBUMIN 25% INJ 100 ML IV PRN (12:45)
[2017-10-26] MEDS ORDERED: NITROGLYCERIN 0.4 MG SL 25 TABS/BTL SL PRN (12:45)
[2017-10-26] MEDS ORDERED: SODIUM CHLORIDE 0.9% FLUSH 10 ML FLUSH IV FLUSH PRN (12:45)
[2017-10-26] MEDS ORDERED: HEPARIN SODIUM - IV 10,000 UNITS/10 ML VIAL IV FLUSH PRN (12:45)
[2017-10-26] MEDS ORDERED: diphenhydrAMINE HCL 25 MG CAP PO PRN (12:45)
--- NOTE | 2017-10-26 16:42 | HHI.GIFU ---
Subjective Remarks and family members in room, supportive care Patient remains on ventilator support, sedated Current hemoglobin 9.8 no obvious bleeding (Myrna Castro) Objective Vitals I&O Vital Signs Date Time Temp Pulse Resp B/P (MAP) Pulse Ox O2 Delivery O2 Flow Rate FiO2 10/26/17 16:26 97 45 10/26/17 16:15 98.1 88 24 96 10/26/17 16:00 45 10/26/17 16:00 87 10/26/17 16:00 98.1 86 24 159/82 (107) 96 10/26/17 15:45 97.9 86 24 96 10/26/17 15:40 97.9 87 24 175/88 (117) 97 10/26/17 15:30 97.7 87 24 96 10/26/17 15:20 97.7 78 24 153/83 (106) 96 10/26/17 15:15 97.7 70 24 96 10/26/17 15:00 97.5 77 24 160/84 (109) 96 10/26/17 14:45 97.5 84 24 96 10/26/17 14:40 97.3 86 24 162/89 (113) 96 10/26/17 14:30 97.3 83 24 96 10/26/17 14:20 97.2 85 24 151/92 (111) 96 10/26/17 14:15 97.2 86 24 95 10/26/17 14:00 45 10/26/17 14:00 84 10/26/17 14:00 97.0 83 24 151/80 (103) 96 10/26/17 13:45 97.0 84 24 96 10/26/17 13:40 96.8 85 24 163/81 (108) 96 10/26/17 13:30 96.8 84 24 96 10/26/17 13:20 96.6 84 24 166/80 (108) 96 10/26/17 13:15 96.6 84 24 96 10/26/17 13:00 96.4 94 24 185/86 (119) 96 10/26/17 12:45 96.3 85 24 97 10/26/17 12:40 96.3 84 24 175/86 (115) 98 10/26/17 12:30 96.1 85 24 95 6/9/18 12:20 95.9 84 24 202/96 (131) 96 618 12:15 95.9 85 24 96 618 12:00 83 6/18 12:00 45 6/18 12:00 96.0 6/18 12:00 95.7 83 24 187/99 (128) 96 618 11:49 96 45 618 11:45 95.5 81 24 96 618 11:40 95.4 80 24 186/100 (128) 96 618 11:30 95.4 76 24 96 6/18 11:20 95.2 82 24 186/99 (128) 96 6 11:15 95.0 81 24 96 618 11:00 94.8 81 24 182/106 (131) 96 10/26/17 10:45 94.6 80 24 96 618 10:40 94.6 79 24 182/103 (129) 97 10/26/17 10:30 94.6 74 24 97 618 10:21 94.6 69 24 186/106 (132) 97 18 10:15 94.6 81 24 97 18 10:00 94.3 6 10:00 94.8 74 24 170/104 (126) 97 18 10:00 80 618 09:45 94.8 80 24 97 6/18 09:40 94.8 81 24 175/100 (125) 97 618 09:30 95.0 83 24 97 618 09:20 95.0 82 24 183/87 (119) 97 618 09:15 95.0 81 24 97 618 09:00 95.2 82 24 193/92 (125) 97 618 08:45 95.5 83 24 97 618 08:40 95.5 83 24 169/96 (120) 97 618 08:30 95.5 83 24 97 6/9/18 08:20 95.5 83 24 171/94 (119) 97 618 08:15 95.5 84 24 97 618 08:00 95.7 84 24 181/95 (123) 97 10/26/17 08:00 82 10/26/17 08:00 45 10/26/17 07:45 97 45 10/26/17 06:00 82 10/26/17 04:06 95 45 10/26/17 04:00 45 10/26/17 04:00 87 10/26/17 04:00 97.3 87 24 178/86 (116) 95 10/26/17 02:00 86 10/26/17 00:00 97.4 86 24 165/84 (111) 95 10/26/17 00:00 45 10/26/17 00:00 86 10/25/17 23:30 95 45 10/25/17 22:00 84 10/25/17 20:15 97 45 10/25/17 20:00 97.5 64 23 137/76 (96) 98 10/25/17 20:00 64 10/25/17 20:00 45 10/25/17 18:00 90 I/O 10/25/17 10/25/17 10/25/17 10/26/17 10/26/17 10/26/17 07:00 15:00 23:00 07:00 15:00 23:00 Intake Total 1837 ml 1140.4 ml 153 ml 643 ml Output Total 100 ml 300 ml 300 ml Balance 1737 ml 1140.4 ml -147 ml 343 ml IV Total 1657 ml 675.4 ml 33 ml 643 ml Packed Cells 400 ml Blood Product IV Normal Saline Flush 65 ml Other 180 ml 120 ml Output Urine Total 50 ml 150 ml 150 ml Gastric Drainage Total 50 ml 150 ml 150 ml # Bowel Movements 0 0 Laboratory Laboratory Tests Test 10/25/17 22:21 10/26/17 04:59 Activated Partial Thromboplast Time 78.7 54.5 White Blood Count 10.6 Red Blood Count 3.37 Hemoglobin 9.8 Hematocrit 29.2 Mean Corpuscular Volume 86.5 Mean Corpuscular Hemoglobin 29.2 Mean Corpuscular Hemoglobin Concent 33.7 Red Cell Distribution Width 18.0 Platelet Count 167 Mean Platelet Volume 8.0 Neutrophils (%) (Auto) 91.3 Lymphocytes (%) (Auto) 5.8 Monocytes (%) (Auto) 2.2 Eosinophils (%) (Auto) 0.5 Basophils (%) (Auto) 0.2 Neutrophils # (Auto) 9.7 Lymphocytes # (Auto) 0.6 Monocytes # (Auto) 0.2 Eosinophils # (Auto) 0.1 Basophils # (Auto) 0.0 CBC Comment DIFF FINAL Differential Comment Blood Urea Nitrogen 63 Creatinine 6.11 Random Glucose 157 Calcium Level 10.7 Phosphorus Level 6.3 Magnesium Level 1.9 Sodium Level 140 Potassium Level 3.6 Chloride Level 108 Carbon Dioxide Level 14.9 Anion Gap 17 Estimat Glomerular Filtration Rate 9 Date/Time Source Procedure Growth Status 10/24/17 13:55 Blood Peripheral Aerobic Blood Culture - Preliminary NO GROWTH IN 2 DAYS Resulted 10/24/17 13:55 Blood Peripheral Anaerobic Blood Culture - Preliminary NO GROWTH IN 2 DAYS Resulted 10/19/17 12:30 Stool Stool Stool Occult Blood (NAOMI) - Final HEMOCCULT NEGATIVE Complete 10/24/17 09:11 Sputum Endotracheal Gram Stain - Final Complete 10/24/17 09:11 Sputum Endotracheal Sputum Culture - Final HEAVY GROWTH NORMAL RESPIRATORY JANENE Complete 10/24/17 09:00 Urine Catheterized Urine Urine Culture - Final NO GROWTH IN 48 HOURS. Complete Imaging Last Impressions Chest X-Ray 10/26/17 0000 Signed Impressions: CONCLUSION: 1. Right central line in good position. No evidence of pneumothorax. 2. Bilateral infiltrates. Brain MRI 10/24/17 0600 Signed Impressions: CONCLUSION: Negative MR Brain non contrast. Neck Magnetic Resonance Angiography 10/24/17 0000 Signed Impressions: CONCLUSION: Normal study __ Percent stenosis is calculated using the diameter of the stenotic region over t he diameter of the normal distal internal carotid artery Head Magnetic Resonance Angiography 10/24/17 0000 Signed Impressions: CONCLUSION: Negative MRA Cow ([facility]) non contrast. Cervical Spine MRI 10/24/17 0000 Signed Impressions: CONCLUSION: 1. 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 2. 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 3. Multilevel significant neural foraminal narrowing as detailed at each level in the above discussion. 4. Lesion involving the spinous process of T2. This is incompletely characteri zed on this exam. Consider CT scan to further assess. Head CT 10/23/17 Signed Impressions: CONCLUSION: 1. Atrophy. 2. No acute intracranial abnormality. Bone Biopsy CT 10/23/17 Signed Impressions: CONCLUSION: 1. Uncomplicated CT guided bone marrow aspirate. 2. Uncomplicated CT guided bone marrow biopsy. Bone Osseous Survey 10/20/17 Signed Impressions: CONCLUSION: Ill-defined lucencies and patchy cortical thinning of multiple bones, primarily the long bones and especially the right tibia and fibula. Extensive multiple m yeloma could certainly have this appearance in the proper clinical setting. Renal Ultrasound 10/19/17 Signed Impressions: CONCLUSION: 1. Negative renal sonogram. Physical Exam HEENT: normocephalic; atraumatic; generalized coolness NECK: Neck is supple, short CHEST: Diminished breath sounds mild rhonchi, ventilator support oral ET tube CARDIAC: Regular rate and rhythm ABDOMEN: Soft, nondistended, nontender; no hepatosplenomegaly; bowel sounds are present in all four quadrants. EXTREMITIES: No lower extremity edema. Cool extremities SKIN: Pale, CORRECTIONAL SERGEANT: Sedated (Myrna Castro) Assessment and Plan Plan Assessment: - Anemia, normocytic- being evaluated by hematology who has ordered a bone marrow biopsy which was done yesterday- pt sent by retail clerk due to routine labs revealing anemia- according to ER notes was complaining of some fatigue but denied any obvious source of GIB at that time. He is now intubated and sedated so information obtained through chart review. Now OG to [facility] with coffee ground emesis. - History of colon cancer S/P resection 10/25/2017, EGD done on 10/24/2017 with findings show LA class III esophagitis with evidence of some NG trauma. Normal stomach mucosal with normal gastric secretions without evidence of recent bleeding. Mucosa normal duodenum, retroflexion normal. Discussed findings with . Bone marrow biopsy per hematology, appreciate input. Currently in the room for supportive care with other family members. states patient had heartburn symptoms and was taking Tums approximately 2 days before admission to the hospital. Patient has a history of colon cancer in 1983. currently patient remains on ventilator support for airway protection. Noted hemoglobin 7.2 today. 10/26/2017 patient remains ventilator support and sedated. No obvious bleeding noted today hemoglobin 9.8 and stable. Patient has workup and has been seen per Dr. Simms. Impression cervical myelopathy with severe C3-C4 and moderate severe C4-C5 canal stenosis. also states workup for multiple myeloma. Since patient has stable hemoglobin and no obvious GI bleeding we will sign off but available if needed Plan: N.p.o. OG to LIWS Antiemetics PPI Stable hemoglobin at 9.8, normocytic No obvious bleeding from a GI perspective we will sign off but available if needed Supportive care Pt has been seen and examined by myself and Dr. Reyes and this note is written on his behalf (Myrna Castro) Physician Comments As above. Please notify us if needed again. (Sandip Reyes MD) Myrna Castro Oct 26, 2017 16:42 Sandip Reyes MD Oct 27, 2017 12:43
[2017-10-26] MEDS: HEPARIN-D5W 25,000 U/250 ML 250 ML IV PRN (16:58)
[2017-10-26] MEDS: HEPARIN SODIUM - IV 10,000 UNITS/10 ML VIAL PRN (18:36)
[2017-10-26] MEDS: GENTAMICIN SULFATE 20 MG/2 ML VIAL OTHER PRN (18:36)
[2017-10-27] VITALS (16 sets, daily range): BP systolic 145–162; BP diastolic 73–85; PULSE 49–135; RESP 0–24; O2SAT 92–98
[2017-10-27] MEDS: DEXMEDETOMIDINE INJ 200 MCG in SODIUM CHLORIDE 0.9% INJ 50 ML IV PRN ×7 (01:31→20:04)
[2017-10-27] MEDS: PIPERACIL-TAZO 2.25 GM PREMIX 50 ML IV SCH ×3 (01:31→20:05)
[2017-10-27] MEDS: INSULIN ASPART SUPPLEMENTAL SCALE SQ SCH ×4 (02:00→20:00)
[2017-10-27] MEDS: CHLORHEXIDINE GLUCONATE 2 % 1 PACK (2 CLOTHS)(taper/protocol) TOPICAL SCH (04:00)
[2017-10-27] MEDS: DILTIAZEM HCL 60 MG TAB OG-TUBE SCH ×3 (04:05→20:06)
[2017-10-27] MEDS: SODIUM BICARBONATE 8.4% INJ 150 MEQ in WATER STERILE FOR INJ 850 ML IV SCH (04:05)
[2017-10-27] MEDS: hydrALAZINE HCL 25 MG TAB PO SCH ×2 (04:05→14:00)
[2017-10-27] MEDS: FUROSEMIDE 100 MG/10 ML VIAL IV PUSH SCH ×3 (04:05→20:05)
[2017-10-27] MEDS: LEVOTHYROXINE SODIUM 75 MCG TAB PO SCH (04:06)
[2017-10-27] MEDS: RESP: ALBUTEROL 2.5 MG/IPRATROPIUM 0.5 MG NEB (SCH) NEB ×5 (04:16→21:11)
[2017-10-27 04:18] LABS: AUTOMATED NEUTROPHIL # 7.7 TH/MM3 (1.8-7.7); BASOPHIL % 0.3 % (0.0-2.0); HEMOGLOBIN 9.3 GM/DL (13.0-17.0); LYMPH % 5.9 % (9.0-44.0); LYMPHOCYTE # 0.5 TH/MM3 (1.0-4.8); MEAN CORPUSCULAR HEMOGLOBIN 29.2 PG (27.0-34.0); MEAN CORPUSCULAR HGB CONC 34.3 % (32.0-36.0); MEAN PLATELET VOLUME 8.1 FL (7.0-11.0); MONO % 3.8 % (0.0-8.0); MONOCYTE # 0.3 TH/MM3 (0-0.9); PLATELET COUNT 150 TH/MM3 (150-450); RED BLOOD COUNT 3.18 MIL/MM3 (4.50-5.90); RED CELL DISTRIBUTION WIDTH 18.9 % (11.6-17.2); WHITE BLOOD COUNT 8.6 TH/MM3 (4.0-11.0)
[2017-10-27 04:44] LABS: ALBUMIN 3.1 GM/DL (3.4-5.0); AST (GOT) 12 U/L (15-37); BICARBONATE 19.6 MEQ/L (21.0-32.0); BLOOD UREA NITROGEN 61 MG/DL (7-18); CALCIUM 9.7 MG/DL (8.5-10.1); CHLORIDE 100 MEQ/L (98-107); CREATININE 5.37 MG/DL (0.60-1.30); GLOMERULAR FILTRATION RATE 10 ML/MIN (>89); GLUCOSE,RANDOM 145 MG/DL (74-106); MAGNESIUM 1.9 MG/DL (1.5-2.5); SODIUM (NA) 138 MEQ/L (136-145)
[2017-10-27 04:45] LABS: ALT (GPT) 31 U/L (12-78); PHOSPHORUS 5.7 MG/DL (2.5-4.9)
[2017-10-27 04:51] LABS: ALKALINE PHOSPHATASE 83 U/L (45-117); TOTAL BILIRUBIN ADULT 0.5 MG/DL (0.2-1.0); TOTAL PROTEIN 6.7 GM/DL (6.4-8.2)
--- NOTE | 2017-10-27 08:53 | HHI.CCPN ---
Subjective Remarks/Hospital Course 10/23: Mr. Mcintosh is an 82-year-old male. He came in the hospital secondary to progressive anemia. Hemoglobin today is 6.9. He has a past history of bleed which was not found to be GI related. Additional findings today are acute renal failure and hypercalcemia. He recalls that he might have had some kidney disease in the past but cannot specify. Looking in our past records his highest creatinine value have been 3.5 but currently his creatinine levels at 5.11. She does not report being dehydrated. He has had a fracture approximately 3 months ago and has been on bedrest until recently for this. Additionally he is on Eliquis. Eliquis combined with his renal condition may be contributory to blood loss. Renal dysfunction can also be contributory to his hypercalcemia. Shortness of breath and weakness have been his primary complaints. Patient underwent bone marrow biopsy by interventional radiology on 10/23. Around 9 PM patient developed altered mental status with speech difficulty and questionable left-sided facial weakness. Stroke alert was called. Head CT done during stroke alert was negative for bleed. Dr. Saunders from neurology was contacted. Patient's blood pressure at that time was 218 systolic. She ordered a nicardipine drip and transferred patient to ICU with critical care consult. I evaluated patient following his arrival to the ICU. At that time patient appeared comfortable not in any acute distress. He was moving all 4 extremities at the time and was completely awake and alert and oriented. He did have some tremors in bilateral upper extremities however stated that he was feeling cold and shivering. 10/24: Patient did take his aspirin after talking to his last night. He did receive 0.5 mg Ativan last night for agitation and morphine around 4 AM for pain and subsequently this morning was noted to be lethargic. His O2 sats dropped and he was placed on nonrebreather facemask. His sats improved with IV Narcan however he was also getting hypothermic and bradycardic. I spoke with patient's at bedside as patient did not appear to be protecting his airway. I proceeded with endotracheal intubation and patient was placed on mechanical ventilation. He is awaiting MRI brain. 10/25 MRI brain negative. On propofol, performing sedation vacation and will proceed with SBT and extubate if able. Oliguric overnight, UOP only 50 mL over the shift stacker. Creatinine 4.87. Initiating diuretic, discussed with Dr. Carlson. Transfusing 1 unit PRBC for Hgb 7.2 per hematology. On heparin drip. 10/26 Pathology now indicating MM. Was started on decadron yesterday by hematology. Was slow to wake up off propofol but was following commands yesterday evening on precedex drip. Propofol resumed overnight in view of some agitation and hypertension.. Would plan for CPAP trial and possible extubation today but will hold off on extubation for now as he may require Vascath placement for dialysis start. Will defer to nephrology, however creatinine continues uptrend and he is oliguric despite diuretic. Subjective: 10/27 HD started yesterday. CPAP trial today and will extubate as tolerated. UOP 400 last 24 hours with diuretic. Objective Vital Signs Date Time Temp Pulse Resp B/P (MAP) Pulse Ox O2 Delivery O2 Flow Rate FiO2 10/27/17 06:00 81 10/27/17 04:16 95 45 10/27/17 04:00 95.9 24 156/73 (100) 10/24/17 07:53 Non-Rebreather 15.00 Intake and Output 10/27/17 10/27/17 10/28/17 08:00 16:00 00:00 Intake Total 1829 ml Output Total 250 ml Balance 1579 ml Result Diagram: 10/27/17 0337 10/27/17 0337 Other Results Microbiology Date/Time Source Procedure Growth Status 10/24/17 09:11 Sputum Endotracheal Gram Stain - Final Complete 10/24/17 09:11 Sputum Endotracheal Sputum Culture - Final HEAVY GROWTH NORMAL RESPIRATORY JANENE Complete 10/24/17 09:00 Urine Catheterized Urine Urine Culture - Final NO GROWTH IN 48 HOURS. Complete Imaging Last Impressions Head CT 10/23/17 0000 Signed Impressions: CONCLUSION: 1. Atrophy. 2. No acute intracranial abnormality. Bone Biopsy CT 10/23/17 0000 Signed Impressions: CONCLUSION: 1. Uncomplicated CT guided bone marrow aspirate. 2. Uncomplicated CT guided bone marrow biopsy. Bone Osseous Survey 10/20/17 0000 Signed Impressions: CONCLUSION: Ill-defined lucencies and patchy cortical thinning of multiple bones, primarily the long bones and especially the right tibia and fibula. Extensive multiple m yeloma could certainly have this appearance in the proper clinical setting. Renal Ultrasound 10/19/17 0000 Signed Impressions: CONCLUSION: 1. Negative renal sonogram. Objective Remarks Drips: Heparin Precedex 0.6 mcg/kg/h Propofol on hold. Gen: Elderly obese male who is orotracheally intubated. He has been on sedation. HEENT/ Neuro: Sedated, orally intubated, Pallor present, no icterus, mucous membranes moist Chest/Pulm: orotracheally intubated, on mechanical ventilation. CTAB . No wheeze. CVS: S1-S2 irregularly irregular, no murmur GI/abdomen: soft, nontender, bowel sounds present. Bowel sounds present : Mathis in place with yellow urine in the Mathis Extremities: warm bilaterally, 1+ edema NEURO: Pupils reactive bilaterally. Follows commands with all extremities. A/P Assessment and Plan 82 y/o male with Acute Encephalopathy Hypothermia Uncontrolled hypertension History of atrial fibrillation anemia hypercalcemia acute renal failure. h/o MGUS now appears Multiple Myeloma chronic kidney disease hypothyroidism h/o colon cancer Plan: Neuro Acute encephalopathy -Stroke alert called and Dr. Saunders consulted for neurology. -Aspirin 81 mg p.o. daily. -Continue anticoagulation with heparin drip. -2D echo pending., MRA brain/ neck - no abnormality -MRI brain negative -MRI Cspine with degeneration C3/4 and C4/[address] León consulted NSG. -Precedex drip during vent weaning. - PT consulted -ammonia level normal. f/u serum viscosity. Cardiovascular: HTN AFIB Had epsiode of bradycardia 10/24 so cardizem was held. Now back on Cardizem 60 mg q6 hours. Home Cardizem is 240 mg p.o. daily. Continue metoprolol 50 mg p.o. twice daily Hydralazine 50 every 8 hours per nephrology . Pulmonary: Acute hypercapnic respiratory failure suspected NANCY. -Intubated for airway protection and placed on mechanical ventilation -Daily CPAP trial and plan to extubate as tolerated. Nocturnal Bipap. -Vent bundle, bronchodilators as needed. GI/liver: Esophagitis History of colon cancer -OG tube placed. Hold tube feeds for spontaneous breathing trial. Swallow eval when extubated. EGD 10/24LA class C esophagitis with NG trauma. Normal mucosa of stomach, duodenum. Continue PPI per GI recommendation Renal/: ZOFIA overlying CKD Light chain cast nephropathy Hypercalcemia , resolved -Received pamidronate for hypercalcemia per nephrology on 10/23. -Now I>>O, oliguric. -R IJ vascath placed 10/26 and started on HD. Plan for HD today. -Nephrology following. Dr. Carlson [facility]: Plasma cell myeloma Chronic anticoagulation due to history of atrial fibrillation and lower extremity DVT -Being followed by oncology. Had known MGUS. - bone marrow biopsy 10/23 c/w myeloma -Decadron started 10/25 , increase to 40 mg IV today per hematology. The remainder of chemo regimen will likely be started as outpatient per d/w Dr. Horowitz. -Continue anticoagulation in view of history of A. fib , LE DVT -Transfused 1 unit packed red cells 10/25. Hemoglobin now 9.8 -Started on aspirin 10/23 ID: -Pancultures ordered 10/24 -Minimal aspiration noted during intubation. -Was placed empiric antibiotic coverage with IV Zosyn 09/24 #3 and the of hypothermia and the worsening mental status. Microbiology: 10/24urine culture negative 10/24 sputum culture negative. 10/24 blood culture no growth to date Endocrine: Hypothyroidism Continue Synthroid 75 mg p.o. daily Monitor glucose while on Decadron and initiate low-dose insulin sliding scale as indicated. TSH normal 10/19 Prophylaxis: SCDs. Heparin drip as per above. PPI Discussed current clinical status with patient's in detail. Multiple questions answered. Discussed with with Skylar Sanchez Level 3 f/u. Verona Cabrera MD Oct 27, 2017 08:53
[2017-10-27] MEDS ORDERED: POTASSIUM CHLORIDE 25 MEQ EFFERVESCENT TAB OG-TUBE ONE (09:00)
[2017-10-27] MEDS: DEXAMETHASONE SOD PHOS 4 MG/ML VIAL IV PUSH SCH ×2 (09:01→11:12)
[2017-10-27] MEDS: DOCUSATE SODIUM 100 MG CAP PO SCH ×2 (09:01→20:07)
[2017-10-27] MEDS: ASPIRIN 81 MG CHEW TAB CHEW SCH (09:01)
[2017-10-27] MEDS: PANTOPRAZOLE SODIUM 40 MG VIAL IV PUSH SCH ×2 (09:01→20:07)
[2017-10-27] MEDS: MULTIVITAMIN TAB PO SCH (09:01)
[2017-10-27] MEDS: CHOLECALCIFEROL (VIT D3) 1000 UNIT TAB PO SCH (09:01)
[2017-10-27] MEDS: METOPROLOL TARTRATE 50 MG TAB PO SCH ×2 (09:02→20:07)
[2017-10-27] MEDS: SODIUM CHLORIDE 0.9% FLUSH 10 ML FLUSH IV FLUSH SCH ×2 (09:02→20:07)
[2017-10-27] MEDS: CHLORHEXIDINE 0.12% (ORAL KIT) 15 ML CUP MT SCH ×2 (09:03→20:00)
--- NOTE | 2017-10-27 09:21 | PD.ONC.PN ---
Subjective Subjective Remarks Afebrile overnight. s/p dialysis yesterday dialysis scheduled again today. they are also doing CPAP trials at bedside wants to know if he will eat today Objective Data Date Time Temp Pulse Resp B/P (MAP) Pulse Ox O2 Delivery O2 Flow Rate FiO2 10/27/17 06:00 81 10/27/17 04:16 95 45 10/27/17 04:00 49 10/27/17 04:00 95.9 49 24 156/73 (100) 94 10/27/17 04:00 45 10/27/17 02:00 59 10/27/17 00:00 81 10/27/17 00:00 96.6 81 0 162/75 (104) 95 10/27/17 00:00 45 10/26/17 23:22 96 45 10/26/17 22:00 85 10/26/17 20:30 95 45 10/26/17 20:00 45 10/26/17 20:00 87 10/26/17 20:00 97.5 87 24 151/73 (99) 95 10/26/17 18:00 93 10/26/17 16:26 97 45 10/26/17 16:15 98.1 88 24 96 10/26/17 16:00 45 10/26/17 16:00 87 10/26/17 16:00 98.1 86 24 159/82 (107) 96 10/26/17 15:45 97.9 86 24 96 10/26/17 15:40 97.9 87 24 175/88 (117) 97 10/26/17 15:30 97.7 87 24 96 10/26/17 15:20 97.7 78 24 153/83 (106) 96 10/26/17 15:15 97.7 70 24 96 10/26/17 15:00 97.5 77 24 160/84 (109) 96 10/26/17 14:45 97.5 84 24 96 10/26/17 14:40 97.3 86 24 162/89 (113) 96 10/26/17 14:30 97.3 83 24 96 10/26/17 14:20 97.2 85 24 151/92 (111) 96 10/26/17 14:15 97.2 86 24 95 10/26/17 14:00 45 10/26/17 14:00 84 10/26/17 14:00 97.0 83 24 151/80 (103) 96 10/26/17 14:00 97.0 10/26/17 13:45 97.0 84 24 96 10/26/17 13:40 96.8 85 24 163/81 (108) 96 10/26/17 13:30 96.8 84 24 96 10/26/17 13:20 96.6 84 24 166/80 (108) 96 10/26/17 13:15 96.6 84 24 96 10/26/17 13:00 96.4 94 24 185/86 (119) 96 10/26/17 12:45 96.3 85 24 97 10/26/17 12:40 96.3 84 24 175/86 (115) 98 10/26/17 12:30 96.1 85 24 95 10/26/17 12:20 95.9 84 24 202/96 (131) 96 10/26/17 12:15 95.9 85 24 96 10/26/17 12:00 83 10/26/17 12:00 45 10/26/17 12:00 96.0 10/26/17 12:00 95.7 83 24 187/99 (128) 96 10/26/17 11:49 96 45 10/26/17 11:45 95.5 81 24 96 10/26/17 11:40 95.4 80 24 186/100 (128) 96 10/26/17 11:30 95.4 76 24 96 10/26/17 11:20 95.2 82 24 186/99 (128) 96 10/26/17 11:15 95.0 81 24 96 10/26/17 11:00 94.8 81 24 182/106 (131) 96 10/26/17 10:45 94.6 80 24 96 10/26/17 10:40 94.6 79 24 182/103 (129) 97 10/26/17 10:30 94.6 74 24 97 10/26/17 10:21 94.6 69 24 186/106 (132) 97 10/26/17 10:15 94.6 81 24 97 10/26/17 10:00 94.3 10/26/17 10:00 94.8 74 24 170/104 (126) 97 10/26/17 10:00 80 10/26/17 09:45 94.8 80 24 97 10/26/17 09:40 94.8 81 24 175/100 (125) 97 10/26/17 09:30 95.0 83 24 97 10/26/17 09:20 95.0 82 24 183/87 (119) 97 10/27/17 10/27/17 10/27/17 07:00 15:00 23:00 Intake Total 1829 ml Output Total 250 ml Balance 1579 ml Result Diagram: 10/27/17 0337 10/27/17 0337 Laboratory Results Laboratory Tests Test 10/26/17 23:06 10/27/17 03:37 Activated Partial Thromboplast Time 46.4 SEC White Blood Count 8.6 TH/MM3 Red Blood Count 3.18 MIL/MM3 Hemoglobin 9.3 GM/DL Hematocrit 27.0 % Mean Corpuscular Volume 85.0 FL Mean Corpuscular Hemoglobin 29.2 PG Mean Corpuscular Hemoglobin Concent 34.3 % Red Cell Distribution Width 18.9 % Platelet Count 150 TH/MM3 Mean Platelet Volume 8.1 FL Neutrophils (%) (Auto) 90.0 % Lymphocytes (%) (Auto) 5.9 % Monocytes (%) (Auto) 3.8 % Eosinophils (%) (Auto) 0.0 % Basophils (%) (Auto) 0.3 % Neutrophils # (Auto) 7.7 TH/MM3 Lymphocytes # (Auto) 0.5 TH/MM3 Monocytes # (Auto) 0.3 TH/MM3 Eosinophils # (Auto) 0.0 TH/MM3 Basophils # (Auto) 0.0 TH/MM3 CBC Comment AUTO DIFF Differential Comment AUTO DIFF CONFIRMED Platelet Estimate NORMAL Platelet Morphology Comment NORMAL Blood Urea Nitrogen 61 MG/DL Creatinine 5.37 MG/DL Random Glucose 145 MG/DL Total Protein 6.7 GM/DL Albumin 3.1 GM/DL Calcium Level 9.7 MG/DL Phosphorus Level 5.7 MG/DL Magnesium Level 1.9 MG/DL Alkaline Phosphatase 83 U/L Aspartate Amino Transf (AST/SGOT) 12 U/L Alanine Aminotransferase (ALT/SGPT) 31 U/L Total Bilirubin 0.5 MG/DL Sodium Level 138 MEQ/L Potassium Level 3.3 MEQ/L Chloride Level 100 MEQ/L Carbon Dioxide Level 19.6 MEQ/L Anion Gap 18 MEQ/L Estimat Glomerular Filtration Rate 10 ML/MIN Culture Results Microbiology Date/Time Source Procedure Growth Status 10/24/17 13:55 Blood Peripheral Aerobic Blood Culture - Preliminary NO GROWTH IN 2 DAYS Resulted 10/24/17 13:55 Blood Peripheral Anaerobic Blood Culture - Preliminary NO GROWTH IN 2 DAYS Resulted 10/24/17 13:06 Blood Peripheral Aerobic Blood Culture - Preliminary NO GROWTH IN 2 DAYS Resulted 10/24/17 13:06 Blood Peripheral Anaerobic Blood Culture - Preliminary NO GROWTH IN 2 DAYS Resulted Administered Medications Medications (Trade) Dose Ordered Sig/Reggie Route PRN Reason Start Time Stop Time Status Last Admin Dose Admin Sodium Chloride (NS Flush) 2 ml UNSCH PRN IV FLUSH FLUSH AFTER USING IV ACCESS 10/18/17 14:15 10/25/17 08:22 Sodium Chloride (NS Flush) 2 ml BID IV FLUSH 10/18/17 21:00 10/27/17 09:02 Morphine Sulfate (Morphine Inj) 4 mg Q3H PRN IV Pain 6-10;if unable to take PO 10/18/17 14:45 10/26/17 03:31 Naloxone HCl (Narcan Inj) 0.4 mg UNSCH PRN IV PUSH SEE LABEL COMMENTS 10/18/17 14:15 10/24/17 06:58 Magnesium Hydroxide (Milk Of Robert Sandoval) 30 ml Q12H PRN PO Mild constipation 10/18/17 14:15 10/21/17 08:17 Cholecalciferol (Vitamin D3) 2,000 units DAILY PO 10/19/17 09:00 10/27/17 09:01 Levothyroxine Sodium (Synthroid) 75 mcg DAILY@0600 PO 10/19/17 06:00 10/27/17 04:06 Multivitamins (Theragran) 1 tab DAILY PO 10/19/17 09:00 10/27/17 09:01 Docusate Sodium (Colace) 100 mg BID PO 10/18/17 21:00 10/27/17 09:01 Clonidine (Catapres) 0.1 mg Q6H PRN PO SBP>160, DBP>90 10/18/17 18:30 10/26/17 10:21 Diltiazem HCl (Cardizem Cd) 240 mg DAILY PO 10/20/17 09:00 Future Hold 10/23/17 10:42 Hydralazine HCl (Apresoline) 50 mg Q8HR PO 10/21/17 22:00 10/27/17 04:05 Nicardipine HCl 25 mg/Sodium Chloride 260 ml @ 52 mls/hr TITRATE PRN IV Blood Pressure Management 10/23/17 22:30 10/24/17 05:59 Miscellaneous Information ([facility]) Patient in critical care unit? Ass... Q361D .XX 10/23/17 23:00 10/23/17 23:00 Chlorhexidine Gluconate (Chlorhexidine 2% Cloth) 3 pack DAILY@04 TOPICAL 10/24/17 04:00 10/28/17 04:01 10/26/17 06:14 Aspirin (Aspirin Chew) 81 mg DAILY CHEW 10/24/17 09:00 10/27/17 09:01 Chlorhexidine Gluconate (Peridex 0.12% Liq) 15 ml BID@08,20 MT 10/24/17 20:00 10/27/17 09:03 Propofol 100 ml @ 3.27 mls/hr TITRATE PRN IV SEDATION 10/24/17 08:45 10/26/17 23:41 Famotidine (Pepcid) 10 mg BID PO 10/24/17 11:00 Future Hold 10/24/17 12:19 Heparin Sodium/ Dextrose 250 ml @ 18 mls/hr TITRATE PRN IV Coagulation Management 10/24/17 17:45 Future hold 10/26/17 16:58 Albuterol/ Ipratropium (Duoneb Neb) 1 ampule Q4HR NEB NEB 10/25/17 00:00 10/27/17 08:48 Piperacillin Sod/ Tazobactam Sod 50 ml @ 100 mls/hr Q8H IV 10/25/17 18:00 10/27/17 09:02 Pantoprazole Sodium (Protonix Inj) 40 mg Q12H IV PUSH 10/25/17 21:00 10/27/17 09:01 Diltiazem HCl (Cardizem) 60 mg Q6HR OG-TUBE 10/25/17 12:00 10/27/17 04:05 Dexmedetomidine HCl 200 mcg/ Sodium Chloride 52 ml @ 5.53 mls/hr TITRATE PRN IV SEDATION 10/25/17 11:30 10/27/17 06:01 Dexamethasone Sodium Phosphate (Decadron Inj) 10 mg DAILY IV PUSH 10/25/17 14:00 10/28/17 09:01 10/27/17 09:01 Furosemide (Lasix Inj) 60 mg Q6H IV PUSH 10/26/17 11:00 10/27/17 04:05 Metoprolol Tartrate (Lopressor) 50 mg BID PO 10/26/17 09:00 10/27/17 09:02 Insulin Aspart (NovoLOG SUPPLEMENTAL SCALE) 1 Q6H SQ 10/26/17 08:00 10/26/17 14:00 Albumin Human 100 ml @ 60 mls/hr UNSCH PRN IV WITH DIALYSIS 10/26/17 12:45 10/26/17 16:00 Heparin Sodium (Porcine) (Heparin Inj) UNSCH PRN .XX WITH DIALYSIS 10/26/17 12:45 10/26/17 18:36 Gentamicin Sulfate (Gentamicin Inj) 20 mg UNSCH PRN OTHER WITH DIALYSIS 10/26/17 12:45 10/26/17 18:36 Objective Remarks GENERAL: Intubated, sedated male, lying in hospital bed. SKIN: Warm and dry. HEAD: Normocephalic. EYES: No injection or drainage. NECK: Supple, trachea midline. CARDIOVASCULAR: Regular rate and rhythm RESPIRATORY: on mechanical ventilation. anterior gutierrez clear. GASTROINTESTINAL: Abdomen soft, non-tender, nondistended. EXTREMITIES: No cyanosis NEUROLOGICAL: intubated, sedated Assessment/Plan Assessment 82y/o male with anemia, hypercalcemia, and acute renal failure. h/o MGUS, hypertension, chronic kidney disease, hypothyroidism, colon cancer, anemia. Plan 1. 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 --urine protein=~3g --LjP=[id number]; free kappa light chains =5K --abnormal discrete band in gamma region noted. --s/p Aredia 60mg on 10/2310/25/17: await bone marrow biopsy results. discussed with at bedside. will give 1 unit pRBC for hgb 7.2. start decadron 10mg IV daily 10/26/17: continue Decadron 10mg IV. may consider increasing to 40mg tomorrow after first dialysis. 10/27/17: increase Decadron to 40mg today. 2. Atrial fibrillation and history of left lower extremity deep venous thrombosis. on heparin gtt. monitor H/H closely. 3. Respiratory failure: on mechanical ventilation. management per critical care. 4. renal failure: started dialysis on 10/26. management per nephrology. Attending Statement The exam, history, and the medical decision-making described in the above note were completed with the assistance of the mid-level provider. I reviewed and agree with the findings presented. I attest that I had a [id number] encounter with the patient on the same day, and personally performed and documented my assessment and findings in the medical record. Reviewed with family risks/benefit Decadron. Pending Bm bx. 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 s/p dialysis, nephrology following. Currently on CPAP Continue to monitor progress. Skylar Sanchez Oct 27, 2017 09:21 Margi Horowitz MD Oct 27, 2017 12:53
--- NOTE | 2017-10-27 14:06 | HHI.NPPN ---
Subjective History of Present Illness The patient is an 82 yo [place] male who presented to this facility on 10/18/17 at the urge of his archeologist and PCP for anemia. He has been having some fatigue and weakness over the past few weeks and a CBC showed a Hgb of 7.2 prompting evaluation at the hospital. The patient's is the primary historian. Was admitted here in Jun for a L femur fx that he sustained at home while turning while moving TV tray causing a twist and fall type injury on his left leg. reports spiral fracture of his left femur that he underwent ORIF. He subsequently developed a DVT in the same leg. Renal functions during that admission were overall normal with SCr at 0.8 baseline. Serum calcium normal at this admission at 8.6-9.0. In August, he developed A fib with RVR and had acute renal insufficiency though nephrology services were not called as his functions improved with correction of RVR (admitting SCr 2.40 on 08/29 and discharge on 09/01 at 1.74). Noted mild hypercalcemia during this admission at 10.7. 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 Byrne, but was many years ago as per the . Says that he never underwent bone marrow bx, but had multiple labs that "didn't change" so they opted to stop following up. Given his recent anemia, his PCP did refer him to Dr. Jordyn Garcia, but appointment not until November. No known CKD hx. Denies any recent NVD No NSAID use No recent abx. Besides the aforementioned health history as of recent, he has been in his usual state of health as per his . Has been on Calcium 600mg with 500IU Vitamin D, with an additional Vitamin D3 1000IU daily since his femur fx. Admitting SCr 2.11 that has improved to 4.47 at consult. Serum CCa 12.9 at admission Interval History Patient extubated. Review of Systems General Constitutional: Fatigue Objective Data Data 10/27/17 10/28/17 19:00 07:00 Intake Total 1170 ml Balance 1170 ml IV Total 1170 ml Vital Signs Date Time Temp Pulse Resp B/P (MAP) Pulse Ox O2 Delivery O2 Flow Rate FiO2 10/27/17 13:43 94 Nasal Cannula 4 36 10/27/17 12:00 97.7 62 19 146/84 (104) 98 10/27/17 12:00 62 10/27/17 12:00 45 10/27/17 11:44 98 45 10/27/17 10:00 86 10/27/17 08:45 45 10/27/17 08:45 Nasal Cannula 36 45 10/27/17 08:00 96.8 59 24 145/75 (98) 95 10/27/17 08:00 45 10/27/17 08:00 59 10/27/17 06:00 81 10/27/17 04:16 95 45 10/27/17 04:00 49 10/27/17 04:00 95.9 49 24 156/73 (100) 94 10/27/17 04:00 45 10/27/17 02:00 59 10/27/17 00:00 81 10/27/17 00:00 96.6 81 0 162/75 (104) 95 10/27/17 00:00 45 10/26/17 23:22 96 45 10/26/17 22:00 85 10/26/17 20:30 95 45 10/26/17 20:00 45 10/26/17 20:00 87 10/26/17 20:00 97.5 87 24 151/73 (99) 95 10/26/17 18:00 93 10/26/17 16:26 97 45 10/26/17 16:15 98.1 88 24 96 10/26/17 16:00 45 10/26/17 16:00 87 10/26/17 16:00 98.1 86 24 159/82 (107) 96 10/26/17 15:45 97.9 86 24 96 10/26/17 15:40 97.9 87 24 175/88 (117) 97 10/26/17 15:30 97.7 87 24 96 10/26/17 15:20 97.7 78 24 153/83 (106) 96 10/26/17 15:15 97.7 70 24 96 10/26/17 15:00 97.5 77 24 160/84 (109) 96 10/26/17 14:45 97.5 84 24 96 10/26/17 14:40 97.3 86 24 162/89 (113) 96 10/26/17 14:30 97.3 83 24 96 10/26/17 14:20 97.2 85 24 151/92 (111) 96 10/26/17 14:15 97.2 86 24 95 -: 10/27/17 0337 10/27/17 0337 Physical Exam General Appearance: Well Developed, Well Nourished, No Acute Distress, Comfortable Eyes Eye Exam: Sclera White Pulmonary Resp Exam: Clear Bilaterally, Breath Sounds Equal, No Distress Cardiology CV Exam: Regular, Normal Sinus Rhythm Gastrointestinal/Abdomen GI Exam: Soft, Non-Tender Genitourinary Exam: Clear Urine Integumentary Skin Exam: Clear, Warm Extremeties Extremities Exam: Moderate Edema (1+ pitting edema legs and hands.) Neurologic Neuro Exam: Awake, Speech Clear, Moving All Extremities Psychiatric Psych Exam: Appropriate Responses Assessment/Plan Discussed Condition With: Spouse Problem List: (1) Acute renal failure ICD Codes: N17.9 - Acute kidney failure, unspecified Status: Acute Plan: The patient tolerated his first dialysis session without difficulty. Patient was extubated without difficulty but still has significant fluid retention clinically with edema of the upper and lower extremities. Dialysis today to improve his volume status further. He is making some urine but relatively small volume. Discussed with his the current status of his renal function and dialysis dependence. Despite ongoing aggressive hydration of the last few days his creatinine level was not improving significantly considering aggressiveness of hydration and after reviewing the labs patient has serum kapa chain serum level will over 1500 at 5385.6 mg/L with kapa chains evident in the urine and proteinuria consisting of 100% monoclonal protein according to lab. 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 Medications should be adjusted for the patient's renal decline. Avoid nephrotoxic agents such as iodinated contrast dyes and NSAIDs. Avoid gadolinium. (2) Hypercalcemia ICD Codes: E83.52 - Hypercalcemia Status: Acute Plan: Calcium level has improved. Likely related to a combination of dialysis and biphosphonate (3) Atrial fibrillation ICD Codes: I48.91 - Unspecified atrial fibrillation Plan: Management as per primary team (4) HTN (hypertension) ICD Codes: I10 - Essential (primary) hypertension Status: Chronic Plan: Continue current regimen Given PRN Labetalol and Clonidine today. Will adjust further tomorrow if needed. Juan Ramon Carlson MD Oct 27, 2017 14:06
[2017-10-27] MEDS: GENTAMICIN SULFATE 20 MG/2 ML VIAL OTHER PRN (16:28)
[2017-10-27] MEDS: HEPARIN SODIUM - IV 10,000 UNITS/10 ML VIAL PRN (16:28)
[2017-10-27] MEDS: HEPARIN-D5W 25,000 U/250 ML 250 ML IV PRN (20:04)
[2017-10-28] VITALS (43 sets, daily range): BP systolic 93–178; BP diastolic 52–95; PULSE 46–134; RESP 14–34; TEMP 98.2–98.6; O2SAT 89–97
[2017-10-28] MEDS: RESP: ALBUTEROL 2.5 MG/IPRATROPIUM 0.5 MG NEB (SCH) NEB ×7 (00:06→23:36)
[2017-10-28] MEDS: FUROSEMIDE 100 MG/10 ML VIAL IV PUSH SCH ×2 (00:15→03:35)
[2017-10-28] MEDS: DILTIAZEM HCL 60 MG TAB OG-TUBE SCH ×5 (00:15→23:39)
[2017-10-28] MEDS: hydrALAZINE HCL 25 MG TAB PO SCH ×4 (00:15→22:14)
[2017-10-28] MEDS: DEXMEDETOMIDINE INJ 200 MCG in SODIUM CHLORIDE 0.9% INJ 50 ML IV PRN (00:16)
[2017-10-28 00:45] LABS: HEMOGLOBIN 8.8 GM/DL (13.0-17.0)
[2017-10-28] MEDS: INSULIN ASPART SUPPLEMENTAL SCALE SQ SCH ×4 (02:00→20:00)
[2017-10-28] MEDS: PIPERACIL-TAZO 2.25 GM PREMIX 50 ML IV SCH ×3 (02:30→20:56)
[2017-10-28] MEDS: METOPROLOL TARTRATE 5 MG/5 ML VIAL IV PUSH PRN ×3 (02:30→07:35)
[2017-10-28] MEDS ORDERED: METOPROLOL TARTRATE 5 MG/5 ML VIAL IV ONE (03:30)
[2017-10-28] MEDS: CHLORHEXIDINE GLUCONATE 2 % 1 PACK (2 CLOTHS)(taper/protocol) TOPICAL SCH (03:35)
[2017-10-28] MEDS: MORPHINE SULFATE 4 MG/ML INJ IV PRN (03:42)
[2017-10-28] MEDS: LEVOTHYROXINE SODIUM 75 MCG TAB PO SCH (06:03)
[2017-10-28] MEDS: POTASSIUM CHLOR 10 MEQ PREMIX 100 ML IV SCH ×2 (06:03→09:09)
[2017-10-28] MEDS: cloNIDine HCL 0.1 MG TAB PO PRN (07:35)
[2017-10-28] MEDS: CHLORHEXIDINE 0.12% (ORAL KIT) 15 ML CUP MT SCH ×2 (08:00→20:00)
[2017-10-28] MEDS: niCARdipine 25 MG/NS 250 ML Vial2Bag or IV room IV PRN ×2 (08:09)
[2017-10-28] MEDS: cloNIDine HCL 0.2 MG TAB PO SCH ×2 (08:45→13:32)
[2017-10-28] MEDS: DOCUSATE SODIUM 100 MG CAP PO SCH ×2 (09:00→20:58)
--- NOTE | 2017-10-28 09:04 | HHI.CCPN ---
Subjective Remarks/Hospital Course 10/23: Mr. Mcintosh is an 82-year-old male. He came in the hospital secondary to progressive anemia. Hemoglobin today is 6.9. He has a past history of bleed which was not found to be GI related. Additional findings today are acute renal failure and hypercalcemia. He recalls that he might have had some kidney disease in the past but cannot specify. Looking in our past records his highest creatinine value have been 3.5 but currently his creatinine levels at 5.11. She does not report being dehydrated. He has had a fracture approximately 3 months ago and has been on bedrest until recently for this. Additionally he is on Eliquis. Eliquis combined with his renal condition may be contributory to blood loss. Renal dysfunction can also be contributory to his hypercalcemia. Shortness of breath and weakness have been his primary complaints. Patient underwent bone marrow biopsy by interventional radiology on 10/23. Around 9 PM patient developed altered mental status with speech difficulty and questionable left-sided facial weakness. Stroke alert was called. Head CT done during stroke alert was negative for bleed. Dr. Saunders from neurology was contacted. Patient's blood pressure at that time was 218 systolic. She ordered a nicardipine drip and transferred patient to ICU with critical care consult. I evaluated patient following his arrival to the ICU. At that time patient appeared comfortable not in any acute distress. He was moving all 4 extremities at the time and was completely awake and alert and oriented. He did have some tremors in bilateral upper extremities however stated that he was feeling cold and shivering. 10/24: Patient did take his aspirin after talking to his last night. He did receive 0.5 mg Ativan last night for agitation and morphine around 4 AM for pain and subsequently this morning was noted to be lethargic. His O2 sats dropped and he was placed on nonrebreather facemask. His sats improved with IV Narcan however he was also getting hypothermic and bradycardic. I spoke with patient's at bedside as patient did not appear to be protecting his airway. I proceeded with endotracheal intubation and patient was placed on mechanical ventilation. He is awaiting MRI brain. 10/25 MRI brain negative. On propofol, performing sedation vacation and will proceed with SBT and extubate if able. Oliguric overnight, UOP only 50 mL over the hospital pharmacist. Creatinine 4.87. Initiating diuretic, discussed with Dr. Carlson. Transfusing 1 unit PRBC for Hgb 7.2 per hematology. On heparin drip. 10/26 Pathology now indicating MM. Was started on decadron yesterday by hematology. Was slow to wake up off propofol but was following commands yesterday evening on precedex drip. Propofol resumed overnight in view of some agitation and hypertension.. Would plan for CPAP trial and possible extubation today but will hold off on extubation for now as he may require Vascath placement for dialysis start. Will defer to nephrology, however creatinine continues uptrend and he is oliguric despite diuretic. Subjective: 10/27 HD started yesterday. CPAP trial today and will extubate as tolerated. UOP 400 last 24 hours with diuretic. 10/28 Patient was extubated yesterday on 5L oxygen. s/p HD 10/27 with removal 2.5L Objective Vital Signs Date Time Temp Pulse Resp B/P (MAP) Pulse Ox O2 Delivery O2 Flow Rate FiO2 10/28/17 08:09 129 178/95 10/28/17 04:00 99.9 25 96 10/27/17 21:14 Nasal Cannula 5.00 10/27/17 13:43 36 Intake and Output 10/28/17 10/28/17 10/29/17 08:00 16:00 00:00 Intake Total 344 ml Output Total 150 ml Balance 194 ml Result Diagram: 10/28/17 0034 10/27/17 0337 Other Results Laboratory Tests Test 10/27/17 10:27 10/28/17 00:34 10/28/17 07:58 Activated Partial Thromboplast Time 42.7 SEC 46.9 SEC Hemoglobin 8.8 GM/DL Hematocrit 26.0 % Imaging Last Impressions Chest X-Ray 10/26/17 0000 Signed Impressions: CONCLUSION: 1. Right central line in good position. No evidence of pneumothorax. 2. Bilateral infiltrates. Brain MRI 10/24/17 0600 Signed Impressions: CONCLUSION: Negative MR Brain non contrast. Neck Magnetic Resonance Angiography 10/24/17 0000 Signed Impressions: CONCLUSION: Normal study __ Percent stenosis is calculated using the diameter of the stenotic region over t he diameter of the normal distal internal carotid artery Head Magnetic Resonance Angiography 10/24/17 Signed Impressions: CONCLUSION: Negative MRA Cow (Exline of Matos) non contrast. Cervical Spine MRI 10/24/17 Signed Impressions: CONCLUSION: 1. 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 2. 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 3. Multilevel significant neural foraminal narrowing as detailed at each level in the above discussion. 4. Lesion involving the spinous process of T2. This is incompletely characteri zed on this exam. Consider CT scan to further assess. Head CT 10/23/17 Signed Impressions: CONCLUSION: 1. Atrophy. 2. No acute intracranial abnormality. Bone Biopsy CT 10/23/17 Signed Impressions: CONCLUSION: 1. Uncomplicated CT guided bone marrow aspirate. 2. Uncomplicated CT guided bone marrow biopsy. Bone Osseous Survey 10/20/17 Signed Impressions: CONCLUSION: Ill-defined lucencies and patchy cortical thinning of multiple bones, primarily the long bones and especially the right tibia and fibula. Extensive multiple m yeloma could certainly have this appearance in the proper clinical setting. Renal Ultrasound 10/19/17 Signed Impressions: CONCLUSION: 1. Negative renal sonogram. Objective Remarks Drips: Heparin Gen: Elderly obese male lying in bed in no acute resp distress HEENT/ Neuro: Sedated, orally intubated, Pallor present, no icterus, mucous membranes moist Chest/Pulm: orotracheally intubated, on mechanical ventilation. CTAB . No wheeze. CVS: S1-S2 irregularly irregular, no murmur GI/abdomen: soft, nontender, bowel sounds present. Bowel sounds present : Mathis in place with yellow urine in the Mathis Extremities: warm bilaterally, 1+ edema NEURO: Awake and alert A/P Assessment and Plan 82 y/o male with Acute Encephalopathy Hypothermia Uncontrolled hypertension History of atrial fibrillation anemia hypercalcemia acute renal failure. h/o MGUS now appears Multiple Myeloma chronic kidney disease hypothyroidism h/o colon cancer Plan: Neuro Acute encephalopathy -Stroke alert called and Dr. Saunders consulted for neurology. -Aspirin 81 mg p.o. daily. -Continue anticoagulation with heparin drip. -2D echo pending., MRA brain/ neck - no abnormality -MRI brain negative -MRI Cspine with degeneration C3/4 and C4/[address] León consulted NSG. - PT consulted -ammonia level normal. Cardiovascular: HTN AFIB On Cardizem 60 mg q6 hours, metoprolol 25 mg p.o. twice daily Hydralazine 50 every 8 hours per nephrology, Monitor HR and BP keep MAP>65mmHg On Cardene drip For 2D echo . Pulmonary: Acute hypercapnic respiratory failure suspected NANCY. - Continue with oxygen keep sats >92% Bronchodilators NIPPV PRN for resp distress GI/liver: Esophagitis History of colon cancer -Swallow eval, diet per speech EGD 10/24LA class C esophagitis with NG trauma. Normal mucosa of stomach, duodenum. Continue PPI per GI recommendation Renal/: ZOFIA overlying CKD Light chain cast nephropathy Hypercalcemia , resolved -Received pamidronate for hypercalcemia per nephrology on 10/23. -R IJ vascath placed 10/26 and started on HD. s/p HD 10/27 with removal 2.5L -Nephrology following. Dr. Carlson [facility]: Plasma cell myeloma Chronic anticoagulation due to history of atrial fibrillation and lower extremity DVT -Being followed by oncology. Had known MGUS. - bone marrow biopsy 10/23 c/w myeloma -Decadron started 10/25 , 40 mg IV today per hematology. -Continue anticoagulation in view of history of A. fib , LE DVT -Transfused 1 unit packed red cells 10/25. -Started on aspirin 10/23 ID: -Pancultures ordered 10/24 Continue with abx ( ZOsyn)monitor for signs of infections ( Fever, WBC) Microbiology: 10/24urine culture negative 10/24 sputum culture negative. 10/24 blood culture no growth to date Endocrine: Hypothyroidism Continue Synthroid 75 mg p.o. daily Monitor glucose while on Decadron , on SSI fo glycemic control TSH normal 10/19 Prophylaxis: SCDs. Heparin drip as per above. PPI Level 3 Yakov Villalobos MD Oct 28, 2017 09:04
[2017-10-28] MEDS: CHOLECALCIFEROL (VIT D3) 1000 UNIT TAB PO SCH (09:10)
[2017-10-28] MEDS: MULTIVITAMIN TAB PO SCH (09:10)
[2017-10-28] MEDS: METOPROLOL TARTRATE 50 MG TAB PO SCH (09:10)
[2017-10-28] MEDS: ASPIRIN 81 MG CHEW TAB CHEW SCH (09:10)
[2017-10-28] MEDS: DEXAMETHASONE SOD PHOS 4 MG/ML VIAL IV PUSH SCH (09:11)
[2017-10-28] MEDS: PANTOPRAZOLE SODIUM 40 MG VIAL IV PUSH SCH ×2 (09:11→20:56)
[2017-10-28 09:12] LABS: BICARBONATE 24.1 MEQ/L (21.0-32.0); CALCIUM 8.8 MG/DL (8.5-10.1); CREATININE 4.93 MG/DL (0.60-1.30)
[2017-10-28] MEDS: SODIUM CHLORIDE 0.9% FLUSH 10 ML FLUSH IV FLUSH SCH ×2 (09:12→20:56)
--- NOTE | 2017-10-28 10:50 | HHI.NPPN ---
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 He has been having some fatigue and weakness over the past few weeks and a CBC showed a Hgb of 7.2 prompting evaluation at the hospital. The patient's is the primary historian. Was admitted here in Jun for a L femur fx that he sustained at home while turning while moving TV tray causing a twist and fall type injury on his left leg. reports spiral fracture of his left femur that he underwent ORIF. He subsequently developed a DVT in the same leg. Renal functions during that admission were overall normal with SCr at 0.8 baseline. Serum calcium normal at this admission at 8.6-9.0. In August, he developed A fib with RVR and had acute renal insufficiency though nephrology services were not called as his functions improved with correction of RVR (admitting SCr 2.40 on 08/29 and discharge on 09/01 at 1.74). Noted mild hypercalcemia during this admission at 10.7. 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 Byrne, but was many years ago as per the . Says that he never underwent bone marrow bx, but had multiple labs that "didn't change" so they opted to stop following up. Given his recent anemia, his PCP did refer him to Dr. Jordyn Garcia, but appointment not until November. No known CKD hx. Denies any recent NVD No NSAID use No recent abx. Besides the aforementioned health history as of recent, he has been in his usual state of health as per his . Has been on Calcium 600mg with 500IU Vitamin D, with an additional Vitamin D3 1000IU daily since his femur fx. Admitting SCr 2.11 that has improved to 4.47 at consult. Serum CCa 12.9 at admission Interval History Patient lying in bed not in respiratory distress. by bedside. Review of Systems General Constitutional: Fatigue Objective Data Data Vital Signs Date Time Temp Pulse Resp B/P (MAP) Pulse Ox O2 Delivery O2 Flow Rate FiO2 10/28/17 08:09 129 178/95 10/28/17 06:00 133 10/28/17 04:00 99.9 123 25 150/72 (98) 96 10/28/17 04:00 123 10/28/17 02:00 134 10/28/17 00:00 99.7 134 23 136/67 (90) 94 10/28/17 00:00 134 10/27/17 22:00 135 10/27/17 21:14 93 Nasal Cannula 5.00 10/27/17 20:00 99.0 134 21 154/85 (108) 92 10/27/17 20:00 134 10/27/17 19:00 95 Nasal Cannula 5.00 10/27/17 18:00 102 10/27/17 16:00 97.9 91 10 147/75 (99) 97 10/27/17 16:00 91 10/27/17 14:00 95 Nasal Cannula 6.00 10/27/17 14:00 83 10/27/17 13:43 94 Nasal Cannula 4 36 10/27/17 12:00 97.7 62 19 146/84 (104) 98 10/27/17 12:00 62 10/27/17 12:00 45 10/27/17 11:44 98 45 -: 10/28/17 0034 10/28/17 0758 Physical Exam General Appearance: Well Developed, Well Nourished, No Acute Distress, Comfortable Eyes Eye Exam: Sclera White Pulmonary Resp Exam: Clear Bilaterally, Breath Sounds Equal, No Distress Cardiology CV Exam: Regular, Normal Sinus Rhythm Gastrointestinal/Abdomen GI Exam: Soft, Non-Tender Genitourinary Exam: Clear Urine Integumentary Skin Exam: Clear, Warm Extremeties Extremities Exam: Moderate Edema (1+ pitting edema legs and hands.) Neurologic Neuro Exam: Awake, Speech Clear, Moving All Extremities Psychiatric Psych Exam: Appropriate Responses Assessment/Plan Discussed Condition With: Patient, Spouse Problem List: (1) Acute renal failure ICD Codes: N17.9 - Acute kidney failure, unspecified Status: Acute Plan: Patient still has significant fluid retention today. We will proceed with another dialysis session for volume management today as discussed with the patient's . Despite ongoing aggressive hydration of the last few days his creatinine level was not improving significantly considering aggressiveness of hydration and after reviewing the labs patient has serum kapa chain serum level will over 1500 at 5385.6 mg/L with kapa chains evident in the urine and proteinuria consisting of 100% monoclonal protein according to lab. 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 Medications should be adjusted for the patient's renal decline. Avoid nephrotoxic agents such as iodinated contrast dyes and NSAIDs. Avoid gadolinium. (2) Hypercalcemia ICD Codes: E83.52 - Hypercalcemia Status: Acute Plan: Calcium level has improved. Likely related to a combination of dialysis and biphosphonate (3) Atrial fibrillation ICD Codes: I48.91 - Unspecified atrial fibrillation Plan: Management as per primary team (4) HTN (hypertension) ICD Codes: I10 - Essential (primary) hypertension Status: Chronic Plan: Continue current regimen Given PRN Labetalol and Clonidine today. Will adjust further tomorrow if needed. Juan Ramon Carlson MD Oct 28, 2017 10:50
[2017-10-28 13:10] LABS: AUTOMATED NEUTROPHIL # 9.5 TH/MM3 (1.8-7.7); BASOPHIL % 0.1 % (0.0-2.0); HEMATOCRIT 26.3 % (39.0-51.0); HEMOGLOBIN 8.8 GM/DL (13.0-17.0); LYMPH % 5.4 % (9.0-44.0); LYMPHOCYTE # 0.6 TH/MM3 (1.0-4.8); MEAN CELL VOLUME 86.8 FL (80.0-100.0); MEAN CORPUSCULAR HGB CONC 33.4 % (32.0-36.0); MEAN PLATELET VOLUME 8.3 FL (7.0-11.0); MONO % 6.6 % (0.0-8.0); MONOCYTE # 0.7 TH/MM3 (0-0.9); NEUT % 87.9 % (16.0-70.0); PLATELET COUNT 163 TH/MM3 (150-450); RED BLOOD COUNT 3.03 MIL/MM3 (4.50-5.90); WHITE BLOOD COUNT 10.8 TH/MM3 (4.0-11.0)
--- NOTE | 2017-10-28 16:21 | HHI.NSPN ---
History Chief Complaint: Pain to extremities secondary to swelling. Interval History 10/26: 82-year-old male who presented to the hospital 10/23/2017 with anemia, acute on chronic kidney disease with hypercalcemia. Patient developed altered mental status, speech deficit, possible left-sided facial weakness following admission on 10/23/2017, prompting a stroke alert with subsequent negative CT scan head. Patient admitted to intensive surgical care unit. Further decline in mental status and increased respiratory difficulty prompted intubation on 10/24. Subsequent MRI of the brain negative. However MRI cervical spine has revealed significant upper cervical stenosis. Patient has a history of multiple other medical problems including atrial fibrillation, left lower extremity DVT, colon cancer with previous colon resection, hypertension, monoclonal gammopathy. 10/28: The patient is awake and alert in bed after completing bedside haemodialysis. He reports pain to the extremities due to the swelling. He is spontaneously moving the upper extremities purposefully and is noticed to have tremors to them. He endorses pain to the left ankle and difficulty moving the left lower extremity since falling and fracturing the extremity in 2017. His strength is essentially normal to the upper and right lower extremities although testing of the distal upper extremities is deferred due to pain. Limited testing due to patient's ability to the left lower which is weak. Exam Results 10/26/17 10/26/17 10/27/17 10/27/17 10/28/17 10/28/17 06:00 18:00 06:00 18:00 06:00 18:00 Intake Total 643 ml 256 ml 1829 ml 1600 ml 410 ml 250 ml Output Total 300 ml 150 ml 2250 ml 2650 ml 150 ml Balance 343 ml 106 ml -421 ml -1050 ml 260 ml 250 ml Intake Oral 250 ml IV Total 643 ml 256 ml 1829 ml 1170 ml 410 ml 250 ml Tube Irrigant 180 ml Output Urine Total 150 ml 150 ml 250 ml 150 ml 150 ml Gastric Drainage Total 150 ml 0 ml Hemodialysis 2000 ml 2500 ml # Bowel Movements 0 0 0 0 1 Vital Signs Date Time Temp Pulse Resp B/P (MAP) Pulse Ox O2 Delivery O2 Flow Rate FiO2 10/28/17 14:00 51 10/28/17 13:00 57 97/52 10/28/17 12:29 93 Nasal Cannula 5.00 10/28/17 12:00 89 10/28/17 12:00 98.6 89 17 128/61 (83) 93 10/28/17 11:00 93 20 139/67 (91) 93 10/28/17 10:30 90 23 127/72 (90) 93 10/28/17 10:00 87 10/28/17 10:00 87 34 116/59 (78) 95 10/28/17 09:31 94 23 118/93 (101) 91 10/28/17 09:00 107 30 119/65 (83) 94 10/28/17 08:31 118 26 118/73 (88) 93 10/28/17 08:09 129 178/95 10/28/17 08:00 98.4 129 21 178/95 (122) 97 10/28/17 08:00 129 10/28/17 07:30 95 Nasal Cannula 5.00 10/28/17 06:00 133 10/28/17 04:00 99.9 123 25 150/72 (98) 96 10/28/17 04:00 123 10/28/17 02:00 134 10/28/17 00:00 99.7 134 23 136/67 (90) 94 10/28/17 00:00 134 10/27/17 22:00 135 10/27/17 21:14 93 Nasal Cannula 5.00 10/27/17 20:00 99.0 134 21 154/85 (108) 92 10/27/17 20:00 134 10/27/17 19:00 95 Nasal Cannula 5.00 10/27/17 18:00 102 10/27/17 16:00 97.9 91 10 147/75 (99) 97 10/27/17 16:00 91 10/27/17 14:00 95 Nasal Cannula 6.00 10/27/17 14:00 83 10/27/17 13:43 94 Nasal Cannula 4 36 10/27/17 12:00 97.7 62 19 146/84 (104) 98 10/27/17 12:00 62 10/27/17 12:00 45 10/27/17 11:44 98 45 10/27/17 10:00 86 10/27/17 08:45 45 10/27/17 08:45 Nasal Cannula 36 45 10/27/17 08:00 96.8 59 24 145/75 (98) 95 10/27/17 08:00 45 10/27/17 08:00 59 10/27/17 06:00 81 10/27/17 04:16 95 45 10/27/17 04:00 49 10/27/17 04:00 95.9 49 24 156/73 (100) 94 10/27/17 04:00 45 10/27/17 02:00 59 10/27/17 00:00 81 10/27/17 00:00 96.6 81 0 162/75 (104) 95 10/27/17 00:00 45 10/26/17 23:22 96 45 10/26/17 22:00 85 10/26/17 20:30 95 45 10/26/17 20:00 45 10/26/17 20:00 87 10/26/17 20:00 97.5 87 24 151/73 (99) 95 10/26/17 18:00 93 10/26/17 16:26 97 45 10/26/17 16:15 98.1 88 24 96 10/26/17 16:00 45 10/26/17 16:00 87 10/26/17 16:00 98.1 86 24 159/82 (107) 96 10/26/17 15:45 97.9 86 24 96 10/26/17 15:40 97.9 87 24 175/88 (117) 97 10/26/17 15:30 97.7 87 24 96 10/26/17 15:20 97.7 78 24 153/83 (106) 96 10/26/17 15:15 97.7 70 24 96 10/26/17 15:00 97.5 77 24 160/84 (109) 96 10/26/17 14:45 97.5 84 24 96 10/26/17 14:40 97.3 86 24 162/89 (113) 96 10/26/17 14:30 97.3 83 24 96 10/26/17 14:20 97.2 85 24 151/92 (111) 96 10/26/17 14:15 97.2 86 24 95 10/26/17 14:00 45 6/9/18 14:00 84 10/26/17 14:00 97.0 83 24 151/80 (103) 96 10/26/17 14:00 97.0 10/26/17 13:45 97.0 84 24 96 10/26/17 13:40 96.8 85 24 163/81 (108) 96 10/26/17 13:30 96.8 84 24 96 10/26/17 13:20 96.6 84 24 166/80 (108) 96 10/26/17 13:15 96.6 84 24 96 10/26/17 13:00 96.4 94 24 185/86 (119) 96 10/26/17 12:45 96.3 85 24 97 10/26/17 12:40 96.3 84 24 175/86 (115) 98 10/26/17 12:30 96.1 85 24 95 10/26/17 12:20 95.9 84 24 202/96 (131) 96 10/26/17 12:15 95.9 85 24 96 10/26/17 12:00 83 10/26/17 12:00 45 10/26/17 12:00 96.0 10/26/17 12:00 95.7 83 24 187/99 (128) 96 10/26/17 11:49 96 45 10/26/17 11:45 95.5 81 24 96 10/26/17 11:40 95.4 80 24 186/100 (128) 96 10/26/17 11:30 95.4 76 24 96 10/26/17 11:20 95.2 82 24 186/99 (128) 96 10/26/17 11:15 95.0 81 24 96 10/26/17 11:00 94.8 81 24 182/106 (131) 96 10/26/17 10:45 94.6 80 24 96 10/26/17 10:40 94.6 79 24 182/103 (129) 97 10/26/17 10:30 94.6 74 24 97 10/26/17 10:21 94.6 69 24 186/106 (132) 97 10/26/17 10:15 94.6 81 24 97 10/26/17 10:00 94.3 10/26/17 10:00 94.8 74 24 170/104 (126) 97 10/26/17 10:00 80 10/26/17 09:45 94.8 80 24 97 10/26/17 09:40 94.8 81 24 175/100 (125) 97 10/26/17 09:30 95.0 83 24 97 10/26/17 09:20 95.0 82 24 183/87 (119) 97 10/26/17 09:15 95.0 81 24 97 10/26/17 09:00 95.2 82 24 193/92 (125) 97 10/26/17 08:45 95.5 83 24 97 10/26/17 08:40 95.5 83 24 169/96 (120) 97 10/26/17 08:30 95.5 83 24 97 10/26/17 08:20 95.5 83 24 171/94 (119) 97 10/26/17 08:15 95.5 84 24 97 10/26/17 08:00 95.7 84 24 181/95 (123) 97 10/26/17 08:00 82 10/26/17 08:00 45 10/26/17 07:45 97 45 10/26/17 06:00 82 10/26/17 04:06 95 45 10/26/17 04:00 45 10/26/17 04:00 87 10/26/17 04:00 97.3 87 24 178/86 (116) 95 10/26/17 02:00 86 10/26/17 00:00 97.4 86 24 165/84 (111) 95 10/26/17 00:00 45 10/26/17 00:00 86 10/25/17 23:30 95 45 10/25/17 22:00 84 10/25/17 20:15 97 45 10/25/17 20:00 97.5 64 23 137/76 (96) 98 10/25/17 20:00 64 10/25/17 20:00 45 10/25/17 18:00 90 Physical Examination GENERAL: Awake & alert in bed after haemodialysis. Affect fairly normal. Readily interacts. No apparent distress. HEENT: Normocephalic, atraumatic. NECK: Midline cervical spine NTTP. Neck supple. No JVD. Trachea midline. MUSCULOSKELETAL: Spontaneously & purposefully moving BUE. Does move BLE to command to varying degrees. Dependent edema. Mildly TTP to right arm. TTP to left ankle. Tremors noted to BUE that patient states are chronic. NEUROLOGICAL: AAOx3. Speech essentially clear & appropriate, slow to respond. Follows simple commands w/o difficulty. Sensation decreased to left ankle chronically since fracture 2017 per patient, otherwise intact to light touch to remainder of extremities. Muscle strength to bilateral deltoids, biceps & triceps essentially 5/5. Unable to assess wrist flexors & extensors and hand intrinsics due to pain and swelling. Muscle strength to RLE essentially 5/5 to all major flexion & extension muscle groups except quadriceps is 3+ to 4/5. Muscle strength to LLE 1/5 to iliopsoas, tibialis anterior 2+ to 3/5, gastrosoleus & extensor hallucis longus 3/5, and patient states not able to do testing for quadriceps & hamstring. Patient reports difficulty & weakness to LLE since fracturing it in 2017. Lab, Micro, Other Results Recent Impressions Chest X-Ray 10/26/17 0000 Signed Impressions: CONCLUSION: 1. Right central line in good position. No evidence of pneumothorax. 2. Bilateral infiltrates. Laboratory Tests Test 10/25/17 22:21 10/26/17 04:59 10/26/17 23:06 10/27/17 03:37 Activated Partial Thromboplast Time 78.7 SEC 54.5 SEC 46.4 SEC White Blood Count 10.6 TH/MM3 8.6 TH/MM3 Red Blood Count 3.37 MIL/MM3 3.18 MIL/MM3 Hemoglobin 9.8 GM/DL 9.3 GM/DL Hematocrit 29.2 % 27.0 % Mean Corpuscular Volume 86.5 FL 85.0 FL Mean Corpuscular Hemoglobin 29.2 PG 29.2 PG Mean Corpuscular Hemoglobin Concent 33.7 % 34.3 % Red Cell Distribution Width 18.0 % 18.9 % Platelet Count 167 TH/MM3 150 TH/MM3 Mean Platelet Volume 8.0 FL 8.1 FL Neutrophils (%) (Auto) 91.3 % 90.0 % Lymphocytes (%) (Auto) 5.8 % 5.9 % Monocytes (%) (Auto) 2.2 % 3.8 % Eosinophils (%) (Auto) 0.5 % 0.0 % Basophils (%) (Auto) 0.2 % 0.3 % Neutrophils # (Auto) 9.7 TH/MM3 7.7 TH/MM3 Lymphocytes # (Auto) 0.6 TH/MM3 0.5 TH/MM3 Monocytes # (Auto) 0.2 TH/MM3 0.3 TH/MM3 Eosinophils # (Auto) 0.1 TH/MM3 0.0 TH/MM3 Basophils # (Auto) 0.0 TH/MM3 0.0 TH/MM3 CBC Comment DIFF FINAL AUTO DIFF Differential Comment AUTO DIFF CONFIRMED Blood Urea Nitrogen 63 MG/DL 61 MG/DL Creatinine 6.11 MG/DL 5.37 MG/DL Random Glucose 157 MG/DL 145 MG/DL Calcium Level 10.7 MG/DL 9.7 MG/DL Phosphorus Level 6.3 MG/DL 5.7 MG/DL Magnesium Level 1.9 MG/DL 1.9 MG/DL Sodium Level 140 MEQ/L 138 MEQ/L Potassium Level 3.6 MEQ/L 3.3 MEQ/L Chloride Level 108 MEQ/L 100 MEQ/L Carbon Dioxide Level 14.9 MEQ/L 19.6 MEQ/L Anion Gap 17 MEQ/L 18 MEQ/L Estimat Glomerular Filtration Rate 9 ML/MIN 10 ML/MIN Platelet Estimate NORMAL Platelet Morphology Comment NORMAL Total Protein 6.7 GM/DL Albumin 3.1 GM/DL Alkaline Phosphatase 83 U/L Aspartate Amino Transf (AST/SGOT) 12 U/L Alanine Aminotransferase (ALT/SGPT) 31 U/L Total Bilirubin 0.5 MG/DL Test 10/27/17 10:27 10/28/17 00:34 10/28/17 07:58 10/28/17 12:10 Activated Partial Thromboplast Time 42.7 SEC 46.9 SEC Hemoglobin 8.8 GM/DL 8.8 GM/DL Hematocrit 26.0 % 26.3 % Blood Urea Nitrogen 56 MG/DL Creatinine 4.93 MG/DL Random Glucose 121 MG/DL Calcium Level 8.8 MG/DL Sodium Level 136 MEQ/L Potassium Level 4.1 MEQ/L Chloride Level 97 MEQ/L Carbon Dioxide Level 24.1 MEQ/L Anion Gap 15 MEQ/L Estimat Glomerular Filtration Rate 11 ML/MIN White Blood Count 10.8 TH/MM3 Red Blood Count 3.03 MIL/MM3 Mean Corpuscular Volume 86.8 FL Mean Corpuscular Hemoglobin 29.0 PG Mean Corpuscular Hemoglobin Concent 33.4 % Red Cell Distribution Width 19.0 % Platelet Count 163 TH/MM3 Mean Platelet Volume 8.3 FL Neutrophils (%) (Auto) 87.9 % Lymphocytes (%) (Auto) 5.4 % Monocytes (%) (Auto) 6.6 % Eosinophils (%) (Auto) 0.0 % Basophils (%) (Auto) 0.1 % Neutrophils # (Auto) 9.5 TH/MM3 Lymphocytes # (Auto) 0.6 TH/MM3 Monocytes # (Auto) 0.7 TH/MM3 Eosinophils # (Auto) 0.0 TH/MM3 Basophils # (Auto) 0.0 TH/MM3 CBC Comment AUTO DIFF Differential Comment AUTO DIFF CONFIRMED Test 10/28/17 12:38 Blood Gas Puncture Site LT RADIAL Blood Gas Patient Temperature 98.6 Blood Gas HCO3 25 mmol/L Blood Gas Base Excess 1.4 mmol/L Blood Gas Oxygen Saturation 91 % Arterial Blood pH 7.48 Arterial Blood Partial Pressure CO2 33 mmHg Arterial Blood Partial Pressure O2 68 mmHg Arterial Blood Oxygen Content 11.3 Vol % Arterial Blood Carboxyhemoglobin 0.8 % Arterial Blood Methemoglobin 1.5 % Blood Gas Hemoglobin 8.8 G/DL Oxygen Delivery Device NASAL CANNULA Blood Gas Liter Flow 5 L/M Medical Decision Making Impression and Plan Impression: 1. Cervical myelopathy 2. 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 Positive increased signal intensity within the cord at the C3-4 level 3. Acute renal failure with chronic kidney disease 4. History of atrial fibrillation on chronic anticoagulation 5. Respiratory failure requiring intubation 6. Plasma cell myeloma 7. History of colon cancer 8. Hypertension 9. Acute encephalopathy-MRI brain negative for acute event Although the patient does have evidence of significant cervical myelopathy, due to his significant illnesses and what appears to be a relatively poor overall prognosis, it is recommended that any surgical intervention be postponed until his overall clinical condition improves. Patient doing fair. Maintaining oxygen saturation on nasal cannula. Moving BUE spontaneously & purposefully. Moving RLE to command. Limited movement LLE secondary to fracture. Past 24 hrs: 99.9 T max. Intermittent tachycardia. Intermittently elevated SBP. SBP to 97 mm Hg this afternoon. Reviewed labs for today. Haemoglobin level stable. aPTT 46.9. Renal failure w/ minimal improvement. Per Dr Simms: "10/24/2017 MRI cervical spine images are reviewed. The study reveals previous C5 -6-7 ACDF which appears intact. There is adequate spinal cord decompression at the previous surgical levels. Minimal C3-4 retrolisthesis is present. There is a rather severe C3-4 and at least moderate C4-5 posterior osteophytic disc complex which along with posterior facet and ligament hypertrophy causes severe canal stenosis at the C3-4 and to lesser extent C4-5 levels. AP thecal sac dimension at the C3-4 level is 4 mm. There is a moderate area of increased signal intensity within the spinal cord at the C3-4 level. Axial views reveal a prominent central to left greater than right posterior ossific disc complex at the C3-4 level with severe spinal cord compression and severe bilateral foraminal stenosis. Somewhat lesser but still at least moderate stenosis and cord compression at C4-5. 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 Neuro checks. Non-surgical at present due to overriding significant medical issues. Jj Harp Oct 28, 2017 16:21
--- NOTE | 2017-10-28 17:19 | ECHRPT ---
Indication: stroke CONCLUSIONS . Normal left ventricular size and wall thickness. The left ventricular systolic function is normal wi th an estimated ejection fraction in the range of 60-65%. Left ventricular diastolic function parameters a re normal. There is trace tricuspid valve regurgitation. The estimated pulmonary arterial pressure is 33.6 mmHg. BP: / HR: Rhythm: MEASUREMENTS (Male / Female) Normal Values Technical Quality:Technically difficult study 2D ECHO LV Diastolic Diameter PLAX 4.9 cm 4.2 - 5.9 / 3.9 - 5.3 cm LV Systolic Diameter PLAX 3.5 cm IVS Diastolic Thickness 1.3 cm 0.6 - 1.0 / 0.6 - 0.9 cm LVPW Diastolic Thickness 1.1 cm 0.6 - 1.0 / 0.6 - 0.9 cm LV Relative Wall Thickness 0.5 RV Internal Dim ED PLAX 1.8 cm M-MODE Aortic Root Diameter MM 3.2 cm LA Systolic Diameter MM 3.8 cm LA Ao Ratio MM 1.2 AV Cusp Separation MM 1.5 cm DOPPLER Mitral E Point Velocity 111.0 cm/s Mitral A Point Velocity 80.1 cm/s Mitral E to A Ratio 1.4 TR Peak Velocity 243.0 cm/s TR Peak Gradient 23.6 mmHg Right Atrial Pressure 10.0 mmHg Pulmonary Artery Systolic Pressu 33.6 mmHg Right Ventricular Systolic Press 33.6 mmHg FINDINGS LEFT VENTRICLE There was limited left ventricular wall motion assessment due to poor endocardial visualization. Normal left ventricular size and wall thickness. The left ventricular systolic function is normal wi th an estimated ejection fraction in the range of 60-65%. Left ventricular diastolic function parameters a re normal. RIGHT VENTRICLE Normal right ventricular size and systolic function. LEFT ATRIUM The left atrial size is normal. RIGHT ATRIUM The right atrial size is normal. ATRIAL SEPTUM Normal atrial septal thickness without atrial level shunting by limited color doppler interrogation. AORTA The aortic root and proximal ascending aorta are not well visualized. MITRAL VALVE Structurally normal mitral valve. No mitral valve stenosis or regurgitation. AORTIC VALVE Trileaflet aortic valve. No aortic valve stenosis or regurgitation. TRICUSPID VALVE Structurally normal tricuspid valve. No tricuspid valve stenosis. There is trace tricuspid valve regurgitation. The estimated pulmonary arterial pressure is 33.6 mmHg. PULMONARY VALVE No pulmonary valve regurgitation or stenosis. VESSELS The inferior vena cava is mildly enlarged. PERICARDIUM No pericardial effusion. Evelio Gr MD (Electronically Signed) Final Date:28 October 2017 17:17
[2017-10-28] MEDS: SODIUM CHLOR 0.9% 1000 ML INJ 1,000 ML OTHER PRN (18:30)
[2017-10-28] MEDS: HEPARIN SODIUM - IV 10,000 UNITS/10 ML VIAL PRN (18:30)
[2017-10-28] MEDS: GENTAMICIN SULFATE 20 MG/2 ML VIAL OTHER PRN (18:30)
[2017-10-28] MEDS: HEPARIN-D5W 25,000 U/250 ML 250 ML IV PRN (19:27)
--- NOTE | 2017-10-28 20:26 | PD.ONC.PN ---
Subjective Subjective Remarks extubated awake and alert Path report confirmed Multiple Myeloma with > 60% bone marrow involvement Objective Data Date Time Temp Pulse Resp B/P (MAP) Pulse Ox O2 Delivery O2 Flow Rate FiO2 10/28/17 20:02 92 Nasal Cannula 5.00 10/28/17 18:00 88 10/28/17 16:31 98.2 65 22 128/60 (82) 94 10/28/17 16:01 53 20 103/55 (71) 93 10/28/17 16:00 52 10/28/17 15:30 53 24 110/57 (74) 94 10/28/17 15:00 52 24 102/56 (71) 94 10/28/17 14:30 46 17 93/52 (66) 94 10/28/17 14:00 55 14 102/53 (69) 94 10/28/17 14:00 51 10/28/17 13:30 54 24 95/52 (66) 92 10/28/17 13:00 57 21 97/52 (67) 92 10/28/17 13:00 57 97/52 10/28/17 12:29 93 Nasal Cannula 5.00 10/28/17 12:00 89 10/28/17 12:00 98.6 89 17 128/61 (83) 93 10/28/17 11:00 93 20 139/67 (91) 93 10/28/17 10:30 90 23 127/72 (90) 93 10/28/17 10:00 87 10/28/17 10:00 87 34 116/59 (78) 95 10/28/17 09:31 94 23 118/93 (101) 91 10/28/17 09:00 107 30 119/65 (83) 94 10/28/17 08:31 118 26 118/73 (88) 93 10/28/17 08:09 129 178/95 10/28/17 08:00 98.4 129 21 178/95 (122) 97 10/28/17 08:00 129 10/28/17 07:30 95 Nasal Cannula 5.00 10/28/17 06:00 133 10/28/17 04:00 99.9 123 25 150/72 (98) 96 10/28/17 04:00 123 10/28/17 02:00 134 10/28/17 00:00 99.7 134 23 136/67 (90) 94 10/28/17 00:00 134 10/27/17 22:00 135 10/27/17 21:14 93 Nasal Cannula 5.00 10/28/17 10/28/17 10/28/17 07:00 15:00 23:00 Intake Total 344 ml 250 ml Output Total 150 ml 100 ml Balance 194 ml 250 ml -100 ml Result Diagram: 10/28/17 1210 10/28/17 0758 Laboratory Results Laboratory Tests Test 10/28/17 00:34 10/28/17 07:58 10/28/17 12:10 10/28/17 12:38 Hemoglobin 8.8 GM/DL 8.8 GM/DL Hematocrit 26.0 % 26.3 % Activated Partial Thromboplast Time 46.9 SEC Blood Urea Nitrogen 56 MG/DL Creatinine 4.93 MG/DL Random Glucose 121 MG/DL Calcium Level 8.8 MG/DL Sodium Level 136 MEQ/L Potassium Level 4.1 MEQ/L Chloride Level 97 MEQ/L Carbon Dioxide Level 24.1 MEQ/L Anion Gap 15 MEQ/L Estimat Glomerular Filtration Rate 11 ML/MIN White Blood Count 10.8 TH/MM3 Red Blood Count 3.03 MIL/MM3 Mean Corpuscular Volume 86.8 FL Mean Corpuscular Hemoglobin 29.0 PG Mean Corpuscular Hemoglobin Concent 33.4 % Red Cell Distribution Width 19.0 % Platelet Count 163 TH/MM3 Mean Platelet Volume 8.3 FL Neutrophils (%) (Auto) 87.9 % Lymphocytes (%) (Auto) 5.4 % Monocytes (%) (Auto) 6.6 % Eosinophils (%) (Auto) 0.0 % Basophils (%) (Auto) 0.1 % Neutrophils # (Auto) 9.5 TH/MM3 Lymphocytes # (Auto) 0.6 TH/MM3 Monocytes # (Auto) 0.7 TH/MM3 Eosinophils # (Auto) 0.0 TH/MM3 Basophils # (Auto) 0.0 TH/MM3 CBC Comment AUTO DIFF Differential Comment AUTO DIFF CONFIRMED Blood Gas Puncture Site LT RADIAL Blood Gas Patient Temperature 98.6 Blood Gas HCO3 25 mmol/L Blood Gas Base Excess 1.4 mmol/L Blood Gas Oxygen Saturation 91 % Arterial Blood pH 7.48 Arterial Blood Partial Pressure CO2 33 mmHg Arterial Blood Partial Pressure O2 68 mmHg Arterial Blood Oxygen Content 11.3 Vol % Arterial Blood Carboxyhemoglobin 0.8 % Arterial Blood Methemoglobin 1.5 % Blood Gas Hemoglobin 8.8 G/DL Oxygen Delivery Device NASAL CANNULA Blood Gas Liter Flow 5 L/M Administered Medications Medications (Trade) Dose Ordered Sig/Reggie Route PRN Reason Start Time Stop Time Status Last Admin Dose Admin Sodium Chloride (NS Flush) 2 ml UNSCH PRN IV FLUSH FLUSH AFTER USING IV ACCESS 10/18/17 14:15 10/25/17 08:22 Sodium Chloride (NS Flush) 2 ml BID IV FLUSH 10/18/17 21:00 10/28/17 09:12 Morphine Sulfate (Morphine Inj) 4 mg Q3H PRN IV Pain 6-10;if unable to take PO 10/18/17 14:45 10/28/17 03:42 Naloxone HCl (Narcan Inj) 0.4 mg UNSCH PRN IV PUSH SEE LABEL COMMENTS 10/18/17 14:15 10/24/17 06:58 Cholecalciferol (Vitamin D3) 2,000 units DAILY PO 10/19/17 09:00 10/28/17 09:10 Levothyroxine Sodium (Synthroid) 75 mcg DAILY@0600 PO 10/19/17 06:00 10/28/17 06:03 Multivitamins (Theragran) 1 tab DAILY PO 10/19/17 09:00 10/28/17 09:10 Docusate Sodium (Colace) 100 mg BID PO 10/18/17 21:00 10/27/17 20:07 Clonidine (Catapres) 0.1 mg Q6H PRN PO SBP>160, DBP>90 10/18/17 18:30 10/28/17 07:35 Hydralazine HCl (Apresoline) 50 mg Q8HR PO 10/21/17 22:00 10/28/17 06:03 Miscellaneous Information ([facility] Nursing Information) Patient in critical care unit? Ass... [id number] .XX 10/23/17 23:00 10/23/17 23:00 Aspirin (Aspirin Chew) 81 mg DAILY CHEW 10/24/17 09:00 10/28/17 09:10 Chlorhexidine Gluconate (Peridex 0.12% Liq) 15 ml BID@08,20 MT 10/24/17 20:00 10/27/17 09:03 Famotidine (Pepcid) 10 mg BID PO 10/24/17 11:00 Future Hold 10/24/17 12:19 Heparin Sodium/ Dextrose 250 ml @ 18 mls/hr TITRATE PRN IV Coagulation Management 10/24/17 17:45 Future hold 10/28/17 19:27 Albuterol/ Ipratropium (Duoneb Neb) 1 ampule Q4HR NEB NEB 10/25/17 00:00 10/28/17 19:59 Piperacillin Sod/ Tazobactam Sod 50 ml @ 100 mls/hr Q8H IV 10/25/17 18:00 10/28/17 09:10 Pantoprazole Sodium (Protonix Inj) 40 mg Q12H IV PUSH 10/25/17 21:00 10/28/17 09:11 Diltiazem HCl (Cardizem) 60 mg Q6HR OG-TUBE 10/25/17 12:00 10/28/17 11:18 Insulin Aspart (NovoLOG SUPPLEMENTAL SCALE) 1 Q6H SQ 10/26/17 08:00 10/28/17 14:10 Albumin Human 100 ml @ 60 mls/hr UNSCH PRN IV WITH DIALYSIS 10/26/17 12:45 10/26/17 16:00 Heparin Sodium (Porcine) (Heparin Inj) UNSCH PRN .XX WITH DIALYSIS 10/26/17 12:45 10/27/17 16:28 Gentamicin Sulfate (Gentamicin Inj) 20 mg UNSCH PRN OTHER WITH DIALYSIS 10/26/17 12:45 10/27/17 16:28 Diphenhydramine HCl (Benadryl) 25 mg UNSCH PRN PO for hives/itching/anaphylaxis 10/26/17 12:45 10/28/17 02:30 Dexamethasone Sodium Phosphate (Decadron Inj) 40 mg DAILY IV PUSH 10/27/17 11:00 10/30/17 09:01 10/28/17 09:11 Metoprolol Tartrate (Lopressor Inj) 5 mg Q6H PRN IV PUSH HR > 100 10/28/17 02:15 10/28/17 02:30 Metoprolol Tartrate (Lopressor Inj) 5 mg Q5M PRN IV PUSH HR>100 10/28/17 05:15 10/28/17 07:35 Objective Remarks GENERAL: nad SKIN: Warm and dry. CARDIOVASCULAR: Regular rate and rhythm without murmurs. RESPIRATORY: Breath sounds equal bilaterally. No accessory muscle use. GASTROINTESTINAL: Abdomen soft, non-tender, nondistended. EXTREMITIES: No cyanosis, or edema. Assessment/Plan Assessment 82y/o male with anemia, hypercalcemia, and acute renal failure. h/o MGUS, hypertension, chronic kidney disease, hypothyroidism, colon cancer, anemia. Plan 1. IgG kappa Multiple Myeloma with Bone marrow involvement and skeletal mets, Anemia, hypercalcemia, and ARF, --skeletal survey indicating ill defined lesions that may be consistent with myeloma. --urine protein=~3g --KpZ=[id number]; free kappa light chains =5K --abnormal discrete band in gamma region noted. --s/p Aredia 60mg on 10/2310/25/17: await bone marrow biopsy results. discussed with at bedside. will give 1 unit pRBC for hgb 7.2. start decadron 10mg IV daily 10/26/17: continue Decadron 10mg IV. may consider increasing to 40mg tomorrow after first dialysis. 10/27/17: increase Decadron to 40mg Discussed diagnosis with patient Will consider initiating treatment with Velcade agree with dialysis 2. Atrial fibrillation and history of left lower extremity deep venous thrombosis. on heparin gtt. monitor H/H closely. 3. Respiratory failure: on mechanical ventilation. management per critical care. 4. renal failure: started dialysis on 10/26. management per nephrology. Chandler Love MD Oct 28, 2017 20:26
[2017-10-28] MEDS: METOPROLOL TARTRATE 25 MG TAB PO SCH (20:58)
[2017-10-28] MEDS ORDERED: ZOLPIDEM TARTRATE 10 MG TAB PO PRN (22:15)
[2017-10-29] VITALS (46 sets, daily range): BP systolic 108–183; BP diastolic 56–101; PULSE 90–134; RESP 16–36; TEMP 97.7–99.4; O2SAT 84–98
[2017-10-29] MEDS: PIPERACIL-TAZO 2.25 GM PREMIX 50 ML IV SCH ×3 (00:46→17:14)
[2017-10-29] MEDS: METOPROLOL TARTRATE 5 MG/5 ML VIAL IV PUSH PRN (00:47)
[2017-10-29] MEDS ORDERED: TEMAZEPAM 15 MG CAP PO ONE (01:45)
[2017-10-29] MEDS: INSULIN ASPART SUPPLEMENTAL SCALE SQ SCH ×4 (01:54→21:04)
[2017-10-29] MEDS ORDERED: HALOPERIDOL LACTATE 5 MG/ML AMP IV SCH (05:00)
[2017-10-29 06:27] LABS: BICARBONATE 25.4 MEQ/L (21.0-32.0); CALCIUM 8.3 MG/DL (8.5-10.1); CREATININE 4.11 MG/DL (0.60-1.30); MAGNESIUM 2.1 MG/DL (1.5-2.5)
[2017-10-29] MEDS: DILTIAZEM HCL 60 MG TAB OG-TUBE SCH ×4 (06:31→23:41)
[2017-10-29] MEDS: LEVOTHYROXINE SODIUM 75 MCG TAB PO SCH (06:31)
[2017-10-29] MEDS: hydrALAZINE HCL 25 MG TAB PO SCH ×3 (06:31→21:06)
[2017-10-29 06:41] LABS: AUTOMATED NEUTROPHIL # 8.3 TH/MM3 (1.8-7.7); BASOPHIL % 0.1 % (0.0-2.0); HEMATOCRIT 25.9 % (39.0-51.0); HEMOGLOBIN 8.8 GM/DL (13.0-17.0); LYMPHOCYTE # 0.5 TH/MM3 (1.0-4.8); MEAN CELL VOLUME 85.9 FL (80.0-100.0); MEAN CORPUSCULAR HEMOGLOBIN 29.1 PG (27.0-34.0); MEAN CORPUSCULAR HGB CONC 33.9 % (32.0-36.0); MONO % 10.2 % (0.0-8.0); NEUT % 84.7 % (16.0-70.0); PLATELET COUNT 179 TH/MM3 (150-450); RED BLOOD COUNT 3.02 MIL/MM3 (4.50-5.90); RED CELL DISTRIBUTION WIDTH 18.7 % (11.6-17.2); WHITE BLOOD COUNT 9.8 TH/MM3 (4.0-11.0)
[2017-10-29] MEDS: CHLORHEXIDINE 0.12% (ORAL KIT) 15 ML CUP MT SCH ×2 (08:00→21:05)
[2017-10-29 08:12] LABS: OVALOCYTES 1+ (NORMAL)
[2017-10-29] MEDS: CHOLECALCIFEROL (VIT D3) 1000 UNIT TAB PO SCH (08:26)
[2017-10-29] MEDS: ASPIRIN 81 MG CHEW TAB CHEW SCH (08:26)
[2017-10-29] MEDS: METOPROLOL TARTRATE 25 MG TAB PO SCH (08:26)
[2017-10-29] MEDS: MULTIVITAMIN TAB PO SCH (08:26)
[2017-10-29] MEDS: DOCUSATE SODIUM 100 MG CAP PO SCH ×2 (08:27→21:05)
[2017-10-29] MEDS: PANTOPRAZOLE SODIUM 40 MG VIAL IV PUSH SCH ×2 (08:27→21:04)
[2017-10-29] MEDS: DEXAMETHASONE SOD PHOS 4 MG/ML VIAL IV PUSH SCH (08:27)
[2017-10-29] MEDS: SODIUM CHLORIDE 0.9% FLUSH 10 ML FLUSH IV FLUSH SCH ×2 (08:27→21:05)
[2017-10-29] MEDS: METOPROLOL TARTRATE 50 MG TAB PO SCH ×2 (09:00→21:06)
[2017-10-29] MEDS ORDERED: RESP: ALBUTEROL 2.5 MG/IPRATROPIUM 0.5 MG NEB (PRN) NEB (09:00)
--- NOTE | 2017-10-29 09:02 | HHI.CCPN ---
Subjective Remarks/Hospital Course 10/23: Mr. Mcintosh is an 82-year-old male. He came in the hospital secondary to progressive anemia. Hemoglobin today is 6.9. He has a past history of bleed which was not found to be GI related. Additional findings today are acute renal failure and hypercalcemia. He recalls that he might have had some kidney disease in the past but cannot specify. Looking in our past records his highest creatinine value have been 3.5 but currently his creatinine levels at 5.11. She does not report being dehydrated. He has had a fracture approximately 3 months ago and has been on bedrest until recently for this. Additionally he is on Eliquis. Eliquis combined with his renal condition may be contributory to blood loss. Renal dysfunction can also be contributory to his hypercalcemia. Shortness of breath and weakness have been his primary complaints. Patient underwent bone marrow biopsy by interventional radiology on 10/23. Around 9 PM patient developed altered mental status with speech difficulty and questionable left-sided facial weakness. Stroke alert was called. Head CT done during stroke alert was negative for bleed. Dr. Saunders from neurology was contacted. Patient's blood pressure at that time was 218 systolic. She ordered a nicardipine drip and transferred patient to ICU with critical care consult. I evaluated patient following his arrival to the ICU. At that time patient appeared comfortable not in any acute distress. He was moving all 4 extremities at the time and was completely awake and alert and oriented. He did have some tremors in bilateral upper extremities however stated that he was feeling cold and shivering. 10/24: Patient did take his aspirin after talking to his last night. He did receive 0.5 mg Ativan last night for agitation and morphine around 4 AM for pain and subsequently this morning was noted to be lethargic. His O2 sats dropped and he was placed on nonrebreather facemask. His sats improved with IV Narcan however he was also getting hypothermic and bradycardic. I spoke with patient's at bedside as patient did not appear to be protecting his airway. I proceeded with endotracheal intubation and patient was placed on mechanical ventilation. He is awaiting MRI brain. 10/25 MRI brain negative. On propofol, performing sedation vacation and will proceed with SBT and extubate if able. Oliguric overnight, UOP only 50 mL over the lab asst. Creatinine 4.87. Initiating diuretic, discussed with Dr. Carlson. Transfusing 1 unit PRBC for Hgb 7.2 per hematology. On heparin drip. 10/26 Pathology now indicating MM. Was started on decadron yesterday by hematology. Was slow to wake up off propofol but was following commands yesterday evening on precedex drip. Propofol resumed overnight in view of some agitation and hypertension.. Would plan for CPAP trial and possible extubation today but will hold off on extubation for now as he may require Vascath placement for dialysis start. Will defer to nephrology, however creatinine continues uptrend and he is oliguric despite diuretic. Subjective: 10/27 HD started yesterday. CPAP trial today and will extubate as tolerated. UOP 400 last 24 hours with diuretic. 10/28 Patient was extubated yesterday on 5L oxygen. s/p HD 10/27 with removal 2.5L 10/29 Patient s/p HD 10/28 with removal 3L. Received Restoril and Haldol overnight for agitation. Afebrile. Objective Vital Signs Date Time Temp Pulse Resp B/P (MAP) Pulse Ox O2 Delivery O2 Flow Rate FiO2 10/29/17 06:00 94 10/29/17 05:00 36 165/101 (122) 93 10/29/17 04:00 97.7 10/28/17 20:02 Nasal Cannula 5.00 10/27/17 13:43 36 Intake and Output 10/29/17 10/29/17 10/30/17 08:00 16:00 00:00 Intake Total 100 ml Output Total 100 ml Balance 0 ml Result Diagram: 10/29/17 0531 10/29/17 0431 Other Results Laboratory Tests Test 10/28/17 12:10 10/28/17 12:38 10/29/17 04:31 10/29/17 05:31 White Blood Count 10.8 TH/MM3 9.8 TH/MM3 Red Blood Count 3.03 MIL/MM3 3.02 MIL/MM3 Hemoglobin 8.8 GM/DL 8.8 GM/DL Hematocrit 26.3 % 25.9 % Mean Corpuscular Volume 86.8 FL 85.9 FL Mean Corpuscular Hemoglobin 29.0 PG 29.1 PG Mean Corpuscular Hemoglobin Concent 33.4 % 33.9 % Red Cell Distribution Width 19.0 % 18.7 % Platelet Count 163 TH/MM3 179 TH/MM3 Mean Platelet Volume 8.3 FL 8.0 FL Neutrophils (%) (Auto) 87.9 % 84.7 % Lymphocytes (%) (Auto) 5.4 % 5.0 % Monocytes (%) (Auto) 6.6 % 10.2 % Eosinophils (%) (Auto) 0.0 % 0.0 % Basophils (%) (Auto) 0.1 % 0.1 % Neutrophils # (Auto) 9.5 TH/MM3 8.3 TH/MM3 Lymphocytes # (Auto) 0.6 TH/MM3 0.5 TH/MM3 Monocytes # (Auto) 0.7 TH/MM3 1.0 TH/MM3 Eosinophils # (Auto) 0.0 TH/MM3 0.0 TH/MM3 Basophils # (Auto) 0.0 TH/MM3 0.0 TH/MM3 CBC Comment AUTO DIFF AUTO DIFF Differential Comment AUTO DIFF CONFIRMED AUTO DIFF CONFIRMED Blood Gas Puncture Site LT RADIAL Blood Gas Patient Temperature 98.6 Blood Gas HCO3 25 mmol/L Blood Gas Base Excess 1.4 mmol/L Blood Gas Oxygen Saturation 91 % Arterial Blood pH 7.48 Arterial Blood Partial Pressure CO2 33 mmHg Arterial Blood Partial Pressure O2 68 mmHg Arterial Blood Oxygen Content 11.3 Vol % Arterial Blood Carboxyhemoglobin 0.8 % Arterial Blood Methemoglobin 1.5 % Blood Gas Hemoglobin 8.8 G/DL Oxygen Delivery Device NASAL CANNULA Blood Gas Liter Flow 5 L/M Blood Urea Nitrogen 44 MG/DL Creatinine 4.11 MG/DL Random Glucose 116 MG/DL Calcium Level 8.3 MG/DL Phosphorus Level 5.0 MG/DL Magnesium Level 2.1 MG/DL Sodium Level 139 MEQ/L Potassium Level 3.9 MEQ/L Chloride Level 99 MEQ/L Carbon Dioxide Level 25.4 MEQ/L Anion Gap 15 MEQ/L Estimat Glomerular Filtration Rate 14 ML/MIN Ovalocytes 1+ Activated Partial Thromboplast Time 51.3 SEC Imaging Last Impressions Chest X-Ray 10/26/17 0000 Signed Impressions: CONCLUSION: 1. Right central line in good position. No evidence of pneumothorax. 2. Bilateral infiltrates. Brain MRI 10/24/17 0600 Signed Impressions: CONCLUSION: Negative MR Brain non contrast. Neck Magnetic Resonance Angiography 10/24/17 0000 Signed Impressions: CONCLUSION: Normal study __ Percent stenosis is calculated using the diameter of the stenotic region over t he diameter of the normal distal internal carotid artery Head Magnetic Resonance Angiography 10/24/17 Signed Impressions: CONCLUSION: Negative MRA Cow ([place]) non contrast. Cervical Spine MRI 10/24/17 Signed Impressions: CONCLUSION: 1. 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 2. 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 3. Multilevel significant neural foraminal narrowing as detailed at each level in the above discussion. 4. Lesion involving the spinous process of T2. This is incompletely characteri zed on this exam. Consider CT scan to further assess. Head CT 10/23/17 Signed Impressions: CONCLUSION: 1. Atrophy. 2. No acute intracranial abnormality. Bone Biopsy CT 10/23/17 Signed Impressions: CONCLUSION: 1. Uncomplicated CT guided bone marrow aspirate. 2. Uncomplicated CT guided bone marrow biopsy. Bone Osseous Survey 10/20/17 Signed Impressions: CONCLUSION: Ill-defined lucencies and patchy cortical thinning of multiple bones, primarily the long bones and especially the right tibia and fibula. Extensive multiple m yeloma could certainly have this appearance in the proper clinical setting. Renal Ultrasound 10/19/17 Signed Impressions: CONCLUSION: 1. Negative renal sonogram. Objective Remarks Drips: Heparin Gen: Elderly obese male lying in bed in no acute resp distress HEENT/ Neuro: Sedated, orally intubated, Pallor present, no icterus, mucous membranes moist Chest/Pulm: orotracheally intubated, on mechanical ventilation. CTAB . No wheeze. CVS: S1-S2 irregularly irregular, no murmur GI/abdomen: soft, nontender, bowel sounds present. Bowel sounds present : Mathis in place with yellow urine in the Mathis Extremities: warm bilaterally, 1+ edema NEURO: Awake and alert A/P Assessment and Plan 82 y/o male with Acute Encephalopathy Hypothermia Uncontrolled hypertension History of atrial fibrillation anemia hypercalcemia acute renal failure. h/o MGUS now appears Multiple Myeloma chronic kidney disease hypothyroidism h/o colon cancer Plan: Neuro Acute encephalopathy Monitor neuro status -Aspirin 81 mg p.o. daily. -Continue anticoagulation with heparin drip. -MRA brain/ neck - no abnormality -MRI brain negative -MRI Cspine with degeneration C3/4 and C4/[address] León consulted NSG. - PT consulted -ammonia level normal. Cardiovascular: HTN AFIB On Cardizem 60 mg q6 hours, increase metoprolol 50 mg p.o. twice daily, add Clonidine 0.1mg Q8 Hydralazine 50 every 8 hours per nephrology, Monitor HR and BP keep MAP>65mmHg Echo showed EF 60-65%, normal LV diastolic function . Pulmonary: Acute hypercapnic respiratory failure suspected NANCY. - Continue with oxygen keep sats >92% Bronchodilators NIPPV PRN for resp distress GI/liver: Esophagitis History of colon cancer -On PO diet EGD 10/24LA class C esophagitis with NG trauma. Normal mucosa of stomach, duodenum. Continue PPI per GI recommendation Renal/: ZOFIA overlying CKD Light chain cast nephropathy Hypercalcemia , resolved -Received pamidronate for hypercalcemia per nephrology on 10/23. -R IJ vascath placed 10/26 and started on HD. s/p HD 10/28 with removal 3L -Nephrology following. Dr. Carlson [facility]: Plasma cell myeloma Chronic anticoagulation due to history of atrial fibrillation and lower extremity DVT -Being followed by oncology. Had known MGUS. - bone marrow biopsy 10/23 c/w myeloma -Decadron started 10/25 , 40 mg IV daily per hematology. -Continue anticoagulation in view of history of A. fib , LE DVT -Transfused 1 unit packed red cells 10/25. -Started on aspirin 10/23 ID: -Pancultured ( Blood, sputum, Urine ) 10/24: NGTD Continue with abx ( Zosyn)monitor for signs of infections ( Fever, WBC) Microbiology: 10/24urine culture negative 10/24 sputum culture negative. 10/24 blood culture no growth to date Endocrine: Hypothyroidism Continue Synthroid 75 mg p.o. daily Monitor glucose while on Decadron , on SSI fo glycemic control TSH normal /2 Prophylaxis: SCDs. Heparin drip as per above. PPI Will sign off and transfer care to [facility] Level 2 Yakov Villalobos MD Oct 29, 2017 09:02
[2017-10-29] MEDS: cloNIDine HCL 0.1 MG TAB PO SCH ×3 (10:02→21:05)
--- NOTE | 2017-10-29 11:40 | HHI.NPPN ---
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 He has been having some fatigue and weakness over the past few weeks and a CBC showed a Hgb of 7.2 prompting evaluation at the hospital. The patient's is the primary historian. Was admitted here in Jun for a L femur fx that he sustained at home while turning while moving TV tray causing a twist and fall type injury on his left leg. reports spiral fracture of his left femur that he underwent ORIF. He subsequently developed a DVT in the same leg. Renal functions during that admission were overall normal with SCr at 0.8 baseline. Serum calcium normal at this admission at 8.6-9.0. In August, he developed A fib with RVR and had acute renal insufficiency though nephrology services were not called as his functions improved with correction of RVR (admitting SCr 2.40 on 08/29 and discharge on 09/01 at 1.74). Noted mild hypercalcemia during this admission at 10.7. 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 Byrne, but was many years ago as per the . Says that he never underwent bone marrow bx, but had multiple labs that "didn't change" so they opted to stop following up. Given his recent anemia, his PCP did refer him to Dr. Jordyn Garcia, but appointment not until November. No known CKD hx. Denies any recent NVD No NSAID use No recent abx. Besides the aforementioned health history as of recent, he has been in his usual state of health as per his . Has been on Calcium 600mg with 500IU Vitamin D, with an additional Vitamin D3 1000IU daily since his femur fx. Admitting SCr 2.11 that has improved to 4.47 at consult. Serum CCa 12.9 at admission Interval History Patient lying comfortably in bed. by bedside. No verbal complaints. Review of Systems General Constitutional: Fatigue Objective Data Data Vital Signs Date Time Temp Pulse Resp B/P (MAP) Pulse Ox O2 Delivery O2 Flow Rate FiO2 10/29/17 10:00 92 10/29/17 09:45 90 17 133/68 (89) 96 10/29/17 09:34 96 Nasal Cannula 3.50 10/29/17 09:30 90 16 133/64 (87) 96 10/29/17 09:15 91 18 134/66 (88) 94 10/29/17 09:00 97 25 139/68 (91) 93 10/29/17 08:45 128 32 138/77 (97) 92 10/29/17 08:30 90 16 138/71 (93) 98 10/29/17 08:15 91 16 139/74 (95) 97 10/29/17 08:00 98.2 90 18 134/68 (90) 97 10/29/17 08:00 90 10/29/17 08:00 95 Nasal Cannula 2.00 10/29/17 06:00 94 10/29/17 05:00 134 36 165/101 (122) 93 10/29/17 04:45 133 28 156/88 (110) 90 10/29/17 04:30 134 29 156/83 (107) 95 10/29/17 04:00 97.7 133 24 183/85 (117) 94 10/29/17 04:00 133 10/29/17 03:45 133 18 182/81 (114) 93 10/29/17 03:30 134 28 165/74 (104) 93 10/29/17 03:15 133 24 172/82 (112) 84 10/29/17 03:00 133 23 180/84 (116) 93 10/29/17 02:45 134 21 173/86 (115) 94 10/29/17 02:30 134 25 163/79 (107) 95 10/29/17 02:15 133 26 173/78 (109) 96 10/29/17 02:00 133 10/29/17 02:00 133 26 172/79 (110) 92 10/29/17 01:45 133 30 176/81 (112) 94 10/29/17 01:30 133 23 173/78 (109) 93 10/29/17 01:15 132 26 165/76 (105) 91 10/29/17 01:00 132 33 163/82 (109) 92 10/29/17 00:00 128 10/29/17 00:00 99.4 128 27 160/74 (102) 92 10/28/17 23:45 126 25 171/74 (106) 93 10/28/17 23:30 130 25 155/76 (102) 92 10/28/17 23:00 123 20 160/77 (104) 92 10/28/17 22:45 102 17 154/88 (110) 93 10/28/17 22:30 97 17 144/74 (97) 92 10/28/17 22:15 126 23 148/66 (93) 91 10/28/17 22:00 132 10/28/17 22:00 132 22 152/74 (100) 92 10/28/17 21:45 125 24 148/75 (99) 92 10/28/17 21:30 132 28 158/88 (111) 91 10/28/17 21:15 124 26 133/64 (87) 91 10/28/17 21:00 124 28 141/64 (89) 90 10/28/17 20:45 96 20 126/61 (82) 92 10/28/17 20:30 98 27 151/65 (93) 90 10/28/17 20:15 124 31 146/81 (102) 89 10/28/17 20:02 92 Nasal Cannula 5.00 10/28/17 20:00 98.3 100 31 153/85 (107) 91 10/28/17 20:00 100 10/28/17 19:45 96 25 151/78 (102) 91 10/28/17 19:30 96 25 164/73 (103) 91 10/28/17 19:15 95 22 143/77 (99) 91 10/28/17 19:00 92 Nasal Cannula 4.00 10/28/17 19:00 94 23 140/68 (92) 90 10/28/17 18:00 88 10/28/17 16:31 98.2 65 22 128/60 (82) 94 10/28/17 16:01 53 20 103/55 (71) 93 10/28/17 16:00 52 10/28/17 15:30 53 24 110/57 (74) 94 10/28/17 15:00 52 24 102/56 (71) 94 10/28/17 14:30 46 17 93/52 (66) 94 10/28/17 14:00 55 14 102/53 (69) 94 10/28/17 14:00 51 10/28/17 13:30 54 24 95/52 (66) 92 6/11/18 13:00 57 21 97/52 (67) 92 10/28/17 13:00 57 97/52 10/28/17 12:29 93 Nasal Cannula 5.00 10/28/17 12:00 89 10/28/17 12:00 98.6 89 17 128/61 (83) 93 -: 10/29/17 0531 10/29/17 0431 Physical Exam General Appearance: Well Developed, Well Nourished, No Acute Distress, Comfortable Eyes Eye Exam: Sclera White Pulmonary Resp Exam: Clear Bilaterally, Breath Sounds Equal, No Distress Cardiology CV Exam: Regular, Normal Sinus Rhythm Gastrointestinal/Abdomen GI Exam: Soft, Non-Tender Genitourinary Exam: Clear Urine Integumentary Skin Exam: Clear, Warm Extremeties Extremities Exam: Moderate Edema (1+ pitting edema legs ) Neurologic Neuro Exam: Awake, Speech Clear, Moving All Extremities Assessment/Plan Discussed Condition With: Patient, Spouse Problem List: (1) Acute renal failure ICD Codes: N17.9 - Acute kidney failure, unspecified Status: Acute Plan: Patient's renal indices and volume status have improved. Urine output marginal. We will give 1 dose of furosemide today. Plan for hemodialysis again tomorrow. Discussed with . Serum kapa chain serum level well over 1500 at 5385.6 mg/L with kapa chains evident in the urine and proteinuria consisting of 100% monoclonal protein according to lab. 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 Medications should be adjusted for the patient's renal decline. Avoid nephrotoxic agents such as iodinated contrast dyes and NSAIDs. Avoid gadolinium. (2) Hypercalcemia ICD Codes: E83.52 - Hypercalcemia Status: Acute Plan: Calcium level has improved. Likely related to a combination of dialysis and biphosphonate (3) Atrial fibrillation ICD Codes: I48.91 - Unspecified atrial fibrillation Plan: Management as per primary team (4) HTN (hypertension) ICD Codes: I10 - Essential (primary) hypertension Status: Chronic Plan: Continue current regimen Given PRN Labetalol and Clonidine today. Will adjust further tomorrow if needed. Juan Ramon Carlson MD Oct 29, 2017 11:40
[2017-10-29] MEDS ORDERED: FUROSEMIDE 100 MG/10 ML VIAL IV PUSH ONE (11:45)
--- NOTE | 2017-10-29 11:46 | PD.ONC.PN ---
Subjective Subjective Remarks Afebrile overnight. Patient mildly sedated with haldol d/t delirum overnight. at bedside is encouraged that he is now extubated. hoping to get him to regular floor soon. Objective Data Date Time Temp Pulse Resp B/P (MAP) Pulse Ox O2 Delivery O2 Flow Rate FiO2 10/29/17 10:00 92 10/29/17 09:45 90 17 133/68 (89) 96 10/29/17 09:34 96 Nasal Cannula 3.50 10/29/17 09:30 90 16 133/64 (87) 96 10/29/17 09:15 91 18 134/66 (88) 94 10/29/17 09:00 97 25 139/68 (91) 93 10/29/17 08:45 128 32 138/77 (97) 92 10/29/17 08:30 90 16 138/71 (93) 98 10/29/17 08:15 91 16 139/74 (95) 97 10/29/17 08:00 98.2 90 18 134/68 (90) 97 10/29/17 08:00 90 10/29/17 08:00 95 Nasal Cannula 2.00 10/29/17 06:00 94 10/29/17 05:00 134 36 165/101 (122) 93 10/29/17 04:45 133 28 156/88 (110) 90 10/29/17 04:30 134 29 156/83 (107) 95 10/29/17 04:00 97.7 133 24 183/85 (117) 94 10/29/17 04:00 133 10/29/17 03:45 133 18 182/81 (114) 93 10/29/17 03:30 134 28 165/74 (104) 93 10/29/17 03:15 133 24 172/82 (112) 84 10/29/17 03:00 133 23 180/84 (116) 93 10/29/17 02:45 134 21 173/86 (115) 94 10/29/17 02:30 134 25 163/79 (107) 95 10/29/17 02:15 133 26 173/78 (109) 96 10/29/17 02:00 133 10/29/17 02:00 133 26 172/79 (110) 92 10/29/17 01:45 133 30 176/81 (112) 94 10/29/17 01:30 133 23 173/78 (109) 93 10/29/17 01:15 132 26 165/76 (105) 91 10/29/17 01:00 132 33 163/82 (109) 92 10/29/17 00:00 128 10/29/17 00:00 99.4 128 27 160/74 (102) 92 10/28/17 23:45 126 25 171/74 (106) 93 10/28/17 23:30 130 25 155/76 (102) 92 10/28/17 23:00 123 20 160/77 (104) 92 10/28/17 22:45 102 17 154/88 (110) 93 10/28/17 22:30 97 17 144/74 (97) 92 10/28/17 22:15 126 23 148/66 (93) 91 10/28/17 22:00 132 10/28/17 22:00 132 22 152/74 (100) 92 10/28/17 21:45 125 24 148/75 (99) 92 10/28/17 21:30 132 28 158/88 (111) 91 10/28/17 21:15 124 26 133/64 (87) 91 10/28/17 21:00 124 28 141/64 (89) 90 10/28/17 20:45 96 20 126/61 (82) 92 10/28/17 20:30 98 27 151/65 (93) 90 10/28/17 20:15 124 31 146/81 (102) 89 10/28/17 20:02 92 Nasal Cannula 5.00 10/28/17 20:00 98.3 100 31 153/85 (107) 91 10/28/17 20:00 100 10/28/17 19:45 96 25 151/78 (102) 91 10/28/17 19:30 96 25 164/73 (103) 91 10/28/17 19:15 95 22 143/77 (99) 91 10/28/17 19:00 92 Nasal Cannula 4.00 10/28/17 19:00 94 23 140/68 (92) 90 10/28/17 18:00 88 10/28/17 16:31 98.2 65 22 128/60 (82) 94 10/28/17 16:01 53 20 103/55 (71) 93 10/28/17 16:00 52 10/28/17 15:30 53 24 110/57 (74) 94 10/28/17 15:00 52 24 102/56 (71) 94 10/28/17 14:30 46 17 93/52 (66) 94 10/28/17 14:00 55 14 102/53 (69) 94 10/28/17 14:00 51 10/28/17 13:30 54 24 95/52 (66) 92 10/28/17 13:00 57 21 97/52 (67) 92 10/28/17 13:00 57 97/52 10/28/17 12:29 93 Nasal Cannula 5.00 10/28/17 12:00 89 10/28/17 12:00 98.6 89 17 128/61 (83) 93 10/29/17 10/29/17 10/29/17 07:00 15:00 23:00 Intake Total 100 ml Output Total 100 ml Balance 0 ml Result Diagram: 10/29/17 0531 10/29/17 0431 Laboratory Results Laboratory Tests Test 10/28/17 12:10 10/28/17 12:38 10/29/17 04:31 10/29/17 05:31 White Blood Count 10.8 TH/MM3 9.8 TH/MM3 Red Blood Count 3.03 MIL/MM3 3.02 MIL/MM3 Hemoglobin 8.8 GM/DL 8.8 GM/DL Hematocrit 26.3 % 25.9 % Mean Corpuscular Volume 86.8 FL 85.9 FL Mean Corpuscular Hemoglobin 29.0 PG 29.1 PG Mean Corpuscular Hemoglobin Concent 33.4 % 33.9 % Red Cell Distribution Width 19.0 % 18.7 % Platelet Count 163 TH/MM3 179 TH/MM3 Mean Platelet Volume 8.3 FL 8.0 FL Neutrophils (%) (Auto) 87.9 % 84.7 % Lymphocytes (%) (Auto) 5.4 % 5.0 % Monocytes (%) (Auto) 6.6 % 10.2 % Eosinophils (%) (Auto) 0.0 % 0.0 % Basophils (%) (Auto) 0.1 % 0.1 % Neutrophils # (Auto) 9.5 TH/MM3 8.3 TH/MM3 Lymphocytes # (Auto) 0.6 TH/MM3 0.5 TH/MM3 Monocytes # (Auto) 0.7 TH/MM3 1.0 TH/MM3 Eosinophils # (Auto) 0.0 TH/MM3 0.0 TH/MM3 Basophils # (Auto) 0.0 TH/MM3 0.0 TH/MM3 CBC Comment AUTO DIFF AUTO DIFF Differential Comment AUTO DIFF CONFIRMED AUTO DIFF CONFIRMED Blood Gas Puncture Site LT RADIAL Blood Gas Patient Temperature 98.6 Blood Gas HCO3 25 mmol/L Blood Gas Base Excess 1.4 mmol/L Blood Gas Oxygen Saturation 91 % Arterial Blood pH 7.48 Arterial Blood Partial Pressure CO2 33 mmHg Arterial Blood Partial Pressure O2 68 mmHg Arterial Blood Oxygen Content 11.3 Vol % Arterial Blood Carboxyhemoglobin 0.8 % Arterial Blood Methemoglobin 1.5 % Blood Gas Hemoglobin 8.8 G/DL Oxygen Delivery Device NASAL CANNULA Blood Gas Liter Flow 5 L/M Blood Urea Nitrogen 44 MG/DL Creatinine 4.11 MG/DL Random Glucose 116 MG/DL Calcium Level 8.3 MG/DL Phosphorus Level 5.0 MG/DL Magnesium Level 2.1 MG/DL Sodium Level 139 MEQ/L Potassium Level 3.9 MEQ/L Chloride Level 99 MEQ/L Carbon Dioxide Level 25.4 MEQ/L Anion Gap 15 MEQ/L Estimat Glomerular Filtration Rate 14 ML/MIN Ovalocytes 1+ Activated Partial Thromboplast Time 51.3 SEC Administered Medications Medications (Trade) Dose Ordered Sig/Reggie Route PRN Reason Start Time Stop Time Status Last Admin Dose Admin Sodium Chloride (NS Flush) 2 ml UNSCH PRN IV FLUSH FLUSH AFTER USING IV ACCESS 10/18/17 14:15 10/25/17 08:22 Sodium Chloride (NS Flush) 2 ml BID IV FLUSH 10/18/17 21:00 10/29/17 08:27 Morphine Sulfate (Morphine Inj) 4 mg Q3H PRN IV Pain 6-10;if unable to take PO 10/18/17 14:45 10/28/17 03:42 Naloxone HCl (Narcan Inj) 0.4 mg UNSCH PRN IV PUSH SEE LABEL COMMENTS 10/18/17 14:15 10/24/17 06:58 Cholecalciferol (Vitamin D3) 2,000 units DAILY PO 10/19/17 09:00 10/29/17 08:26 Levothyroxine Sodium (Synthroid) 75 mcg DAILY@0600 PO 10/19/17 06:00 10/29/17 06:31 Multivitamins (Theragran) 1 tab DAILY PO 10/19/17 09:00 10/29/17 08:26 Docusate Sodium (Colace) 100 mg BID PO 10/18/17 21:00 10/27/17 20:07 Clonidine (Catapres) 0.1 mg Q6H PRN PO SBP>160, DBP>90 10/18/17 18:30 10/28/17 07:35 Hydralazine HCl (Apresoline) 50 mg Q8HR PO 10/21/17 22:00 10/29/17 06:31 Miscellaneous Information ([facility] Nursing Information) Patient in critical care unit? Ass... Q361D .XX 10/23/17 23:00 10/23/17 23:00 Aspirin (Aspirin Chew) 81 mg DAILY CHEW 10/24/17 09:00 10/29/17 08:26 Chlorhexidine Gluconate (Peridex 0.12% Liq) 15 ml BID@08,20 MT 10/24/17 20:00 10/27/17 09:03 Famotidine (Pepcid) 10 mg BID PO 10/24/17 11:00 Future Hold 10/24/17 12:19 Heparin Sodium/ Dextrose 250 ml @ 18 mls/hr TITRATE PRN IV Coagulation Management 10/24/17 17:45 Future hold 10/28/17 19:27 Piperacillin Sod/ Tazobactam Sod 50 ml @ 100 mls/hr Q8H IV 10/25/17 18:00 10/29/17 08:28 Pantoprazole Sodium (Protonix Inj) 40 mg Q12H IV PUSH 10/25/17 21:00 10/29/17 08:27 Diltiazem HCl (Cardizem) 60 mg Q6HR OG-TUBE 10/25/17 12:00 10/29/17 06:31 Insulin Aspart (NovoLOG SUPPLEMENTAL SCALE) 1 Q6H SQ 10/26/17 08:00 10/28/17 14:10 Sodium Chloride 1,000 ml @ 0 mls/hr Q0M PRN OTHER For Prime & Rinse Back 10/26/17 12:43 10/28/17 18:30 Albumin Human 100 ml @ 60 mls/hr UNSCH PRN IV WITH DIALYSIS 10/26/17 12:45 10/26/17 16:00 Heparin Sodium (Porcine) (Heparin Inj) UNSCH PRN .XX WITH DIALYSIS 10/26/17 12:45 10/28/17 18:30 Gentamicin Sulfate (Gentamicin Inj) 20 mg UNSCH PRN OTHER WITH DIALYSIS 10/26/17 12:45 10/28/17 18:30 Diphenhydramine HCl (Benadryl) 25 mg UNSCH PRN PO for hives/itching/anaphylaxis 10/26/17 12:45 10/28/17 02:30 Dexamethasone Sodium Phosphate (Decadron Inj) 40 mg DAILY IV PUSH 10/27/17 11:00 10/30/17 09:01 10/29/17 08:27 Metoprolol Tartrate (Lopressor Inj) 5 mg Q6H PRN IV PUSH HR > 100 10/28/17 02:15 10/29/17 00:47 Metoprolol Tartrate (Lopressor Inj) 5 mg Q5M PRN IV PUSH HR>100 10/28/17 05:15 10/28/17 07:35 Zolpidem Tartrate (Ambien) 10 mg HS PRN PO insomnia 10/28/17 22:15 10/28/17 22:14 Clonidine (Catapres) 0.1 mg Q8HR PO 10/29/17 09:00 10/29/17 10:02 Objective Remarks GENERAL: elderly male, lying at 45 degrees in hospital bed. sleeping on approach. SKIN: Warm and dry. HEAD: Normocephalic. EYES: No scleral icterus. No injection or drainage. NECK: Supple, trachea midline. CARDIOVASCULAR: +S1/S2 RESPIRATORY: anterior gutierrez with occasional rhonchi. on O2 via [place] GASTROINTESTINAL: Abdomen soft, non-tender, nondistended. EXTREMITIES: No cyanosis NEUROLOGICAL: sedated. Assessment/Plan Assessment 82y/o male with anemia, hypercalcemia, and acute renal failure. h/o MGUS, hypertension, chronic kidney disease, hypothyroidism, colon cancer, anemia. Plan 1. IgG kappa Multiple Myeloma with Bone marrow involvement and skeletal mets, Anemia, hypercalcemia, and ARF, --skeletal survey indicating ill defined lesions that may be consistent with myeloma. --urine protein=~3g --YhB=[id number]; free kappa light chains =5K --abnormal discrete band in gamma region noted. --s/p Aredia 60mg on 10/2310/25/17: await bone marrow biopsy results. discussed with at bedside. will give 1 unit pRBC for hgb 7.2. start decadron 10mg IV daily 10/26/17: continue Decadron 10mg IV. may consider increasing to 40mg tomorrow after first dialysis. 10/27/17: increase Decadron to 40mg Discussed diagnosis with patient Will consider initiating treatment with Velcade agree with dialysis 10/29: reviewed bone marrow biopsy results with . discussed continuing decadron. monitor renal function, electrolytes, CBC 2. Atrial fibrillation and history of left lower extremity deep venous thrombosis. on heparin gtt. monitor H/H closely. 3. renal failure: started dialysis on 10/26. management per nephrology. Attending Statement The exam, history, and the medical decision-making described in the above note were completed with the assistance of the mid-level provider. I reviewed and agree with the findings presented. I attest that I had a [id number] encounter with the patient on the same day, and personally performed and documented my assessment and findings in the medical record. acute ICU delirium on Haldol prn will hold giving Velcade until improvement and transferred out of ICU d/w patient's Skylar Sanchez Oct 29, 2017 11:46 Chandler Love MD Oct 30, 2017 22:29
[2017-10-29] MEDS: RESP: ALBUTEROL 2.5 MG/IPRATROPIUM 0.5 MG NEB (SCH) NEB ×4 (12:00→23:33)
[2017-10-29] MEDS: HEPARIN-D5W 25,000 U/250 ML 250 ML IV PRN (17:19)
[2017-10-30] VITALS (14 sets, daily range): BP systolic 128–147; BP diastolic 70–79; PULSE 68–130; RESP 16–18; TEMP 98.4–98.9; O2SAT 92–98
[2017-10-30] MEDS: PIPERACIL-TAZO 2.25 GM PREMIX 50 ML IV SCH ×3 (02:34→18:00)
[2017-10-30] MEDS: INSULIN ASPART SUPPLEMENTAL SCALE SQ SCH ×4 (02:38→20:34)
[2017-10-30] MEDS: RESP: ALBUTEROL 2.5 MG/IPRATROPIUM 0.5 MG NEB (SCH) NEB ×6 (03:25→20:01)
[2017-10-30 05:38] LABS: BASOPHIL % 0.1 % (0.0-2.0); EOSINOPHIL % 0.1 % (0.0-4.0); HEMOGLOBIN 8.2 GM/DL (13.0-17.0); LYMPHOCYTE # 0.5 TH/MM3 (1.0-4.8); MEAN CELL VOLUME 86.8 FL (80.0-100.0); MEAN CORPUSCULAR HEMOGLOBIN 29.5 PG (27.0-34.0); MEAN PLATELET VOLUME 7.9 FL (7.0-11.0); MONO % 7.5 % (0.0-8.0); MONOCYTE # 0.8 TH/MM3 (0-0.9); NEUT % 87.3 % (16.0-70.0); PLATELET COUNT 160 TH/MM3 (150-450); RED BLOOD COUNT 2.76 MIL/MM3 (4.50-5.90); RED CELL DISTRIBUTION WIDTH 18.5 % (11.6-17.2); WHITE BLOOD COUNT 10.3 TH/MM3 (4.0-11.0)
[2017-10-30 05:44] LABS: ALBUMIN 3.1 GM/DL (3.4-5.0); ALT (GPT) 134 U/L (12-78); AST (GOT) 42 U/L (15-37); BLOOD UREA NITROGEN 73 MG/DL (7-18); CALCIUM 7.7 MG/DL (8.5-10.1); CHLORIDE 97 MEQ/L (98-107); CREATININE 5.83 MG/DL (0.60-1.30); GLOMERULAR FILTRATION RATE 9 ML/MIN (>89); GLUCOSE,RANDOM 136 MG/DL (74-106); MAGNESIUM 2.3 MG/DL (1.5-2.5); PHOSPHORUS 7.8 MG/DL (2.5-4.9); SODIUM (NA) 136 MEQ/L (136-145)
[2017-10-30] MEDS: DILTIAZEM HCL 60 MG TAB OG-TUBE SCH ×3 (05:45→17:01)
[2017-10-30] MEDS: hydrALAZINE HCL 25 MG TAB PO SCH ×3 (05:45→20:35)
[2017-10-30] MEDS: LEVOTHYROXINE SODIUM 75 MCG TAB PO SCH (05:46)
[2017-10-30] MEDS: cloNIDine HCL 0.1 MG TAB PO SCH ×3 (05:46→20:35)
[2017-10-30 05:54] LABS: ALKALINE PHOSPHATASE 71 U/L (45-117); FREE T4 0.92 NG/DL (0.76-1.46); TOTAL BILIRUBIN ADULT 0.4 MG/DL (0.2-1.0); TOTAL PROTEIN 6.4 GM/DL (6.4-8.2)
[2017-10-30 07:19] LABS: ACANTHOCYTES OCC (NORMAL); OVALOCYTES 1+ (NORMAL)
[2017-10-30] MEDS: CHLORHEXIDINE 0.12% (ORAL KIT) 15 ML CUP MT SCH ×2 (08:00→20:34)
[2017-10-30] MEDS: ASPIRIN 81 MG CHEW TAB CHEW SCH (08:09)
[2017-10-30] MEDS: MULTIVITAMIN TAB PO SCH (08:09)
[2017-10-30] MEDS: METOPROLOL TARTRATE 50 MG TAB PO SCH ×2 (08:09→20:35)
[2017-10-30] MEDS: CHOLECALCIFEROL (VIT D3) 1000 UNIT TAB PO SCH (08:10)
[2017-10-30] MEDS: PANTOPRAZOLE SODIUM 40 MG VIAL IV PUSH SCH ×2 (08:10→20:33)
[2017-10-30] MEDS: DOCUSATE SODIUM 100 MG CAP PO SCH ×2 (08:10→20:35)
[2017-10-30] MEDS ORDERED: DEXAMETHASONE SOD PHOS 20 MG/5 ML VIAL IV PUSH SCH (09:00)
[2017-10-30] MEDS: SODIUM CHLORIDE 0.9% FLUSH 10 ML FLUSH IV FLUSH SCH ×2 (09:00→20:33)
--- NOTE | 2017-10-30 10:38 | PD.ONC.PN ---
Subjective Subjective Remarks Afebrile overnight. Patient resting in bed. more lucid today. feeling fatigued. just finished physical therapy. scheduled for dialysis today. Objective Data Date Time Temp Pulse Resp B/P (MAP) Pulse Ox O2 Delivery O2 Flow Rate FiO2 10/30/17 08:40 95 Nasal Cannula 3.50 10/30/17 08:00 98.8 76 18 141/72 (95) 97 10/30/17 08:00 89 10/30/17 07:15 95 Nasal Cannula 2.00 10/30/17 06:00 91 10/30/17 04:00 98.9 89 18 129/73 (91) 97 10/30/17 04:00 89 10/30/17 02:00 90 10/30/17 00:00 98.8 106 18 147/70 (95) 95 10/30/17 00:00 106 10/29/17 22:00 102 10/29/17 20:00 98.9 92 16 131/68 (89) 94 10/29/17 20:00 92 10/29/17 19:53 94 Nasal Cannula 3.50 10/29/17 19:00 93 Nasal Cannula 2.00 10/29/17 18:00 90 10/29/17 17:30 91 27 132/69 (90) 94 10/29/17 17:15 91 24 124/65 (84) 95 10/29/17 17:00 92 24 125/64 (84) 93 10/29/17 16:45 92 21 123/62 (82) 94 10/29/17 16:30 92 24 117/62 (80) 93 10/29/17 16:15 90 27 109/56 (73) 94 10/29/17 16:00 91 10/29/17 16:00 98.8 91 18 108/57 (74) 95 10/29/17 14:00 96 10/29/17 13:15 92 21 129/65 (86) 95 10/29/17 13:00 93 28 138/66 (90) 95 10/29/17 12:45 99 22 142/69 (93) 94 10/29/17 12:30 109 22 148/73 (98) 94 10/29/17 12:15 92 23 139/71 (93) 96 10/29/17 12:00 98.8 91 25 134/73 (93) 96 10/29/17 12:00 91 10/30/17 10/30/17 10/30/17 07:00 15:00 23:00 Intake Total 170 ml Output Total 100 ml Balance 70 ml Result Diagram: 10/30/17 0450 10/30/17 0450 Laboratory Results Laboratory Tests Test 10/29/17 16:15 10/30/17 04:50 Blood Gas Puncture Site LT RADIAL Blood Gas Patient Temperature 98.6 Blood Gas HCO3 26 mmol/L Blood Gas Base Excess 2.1 mmol/L Blood Gas Oxygen Saturation 94 % Arterial Blood pH 7.47 Arterial Blood Partial Pressure CO2 36 mmHg Arterial Blood Partial Pressure O2 82 mmHg Arterial Blood Oxygen Content 10.9 Vol % Arterial Blood Carboxyhemoglobin 0.7 % Arterial Blood Methemoglobin 1.6 % Blood Gas Hemoglobin 8.2 G/DL Oxygen Delivery Device NASAL CANNULA Blood Gas Liter Flow 3.5 L/M White Blood Count 10.3 TH/MM3 Red Blood Count 2.76 MIL/MM3 Hemoglobin 8.2 GM/DL Hematocrit 24.0 % Mean Corpuscular Volume 86.8 FL Mean Corpuscular Hemoglobin 29.5 PG Mean Corpuscular Hemoglobin Concent 34.0 % Red Cell Distribution Width 18.5 % Platelet Count 160 TH/MM3 Mean Platelet Volume 7.9 FL Neutrophils (%) (Auto) 87.3 % Lymphocytes (%) (Auto) 5.0 % Monocytes (%) (Auto) 7.5 % Eosinophils (%) (Auto) 0.1 % Basophils (%) (Auto) 0.1 % Neutrophils # (Auto) 9.0 TH/MM3 Lymphocytes # (Auto) 0.5 TH/MM3 Monocytes # (Auto) 0.8 TH/MM3 Eosinophils # (Auto) 0.0 TH/MM3 Basophils # (Auto) 0.0 TH/MM3 CBC Comment AUTO DIFF Differential Comment AUTO DIFF CONFIRMED Platelet Estimate NORMAL Platelet Morphology Comment NORMAL Ovalocytes 1+ Acanthocytes OCC Activated Partial Thromboplast Time 47.1 SEC Blood Urea Nitrogen 73 MG/DL Creatinine 5.83 MG/DL Random Glucose 136 MG/DL Total Protein 6.4 GM/DL Albumin 3.1 GM/DL Calcium Level 7.7 MG/DL Phosphorus Level 7.8 MG/DL Magnesium Level 2.3 MG/DL Alkaline Phosphatase 71 U/L Aspartate Amino Transf (AST/SGOT) 42 U/L Alanine Aminotransferase (ALT/SGPT) 134 U/L Total Bilirubin 0.4 MG/DL Sodium Level 136 MEQ/L Potassium Level 3.9 MEQ/L Chloride Level 97 MEQ/L Carbon Dioxide Level 24.0 MEQ/L Anion Gap 15 MEQ/L Estimat Glomerular Filtration Rate 9 ML/MIN Free Thyroxine 0.92 NG/DL Thyroid Stimulating Hormone 3rd Gen 1.220 uIU/ML Administered Medications Medications (Trade) Dose Ordered Sig/Reggie Route PRN Reason Start Time Stop Time Status Last Admin Dose Admin Sodium Chloride (NS Flush) 2 ml UNSCH PRN IV FLUSH FLUSH AFTER USING IV ACCESS 10/18/17 14:15 10/25/17 08:22 Sodium Chloride (NS Flush) 2 ml BID IV FLUSH 10/18/17 21:00 10/29/17 21:05 Morphine Sulfate (Morphine Inj) 4 mg Q3H PRN IV Pain 6-10;if unable to take PO 10/18/17 14:45 10/28/17 03:42 Naloxone HCl (Narcan Inj) 0.4 mg UNSCH PRN IV PUSH SEE LABEL COMMENTS 10/18/17 14:15 10/24/17 06:58 Cholecalciferol (Vitamin D3) 2,000 units DAILY PO 10/19/17 09:00 10/30/17 08:10 Levothyroxine Sodium (Synthroid) 75 mcg DAILY@0600 PO 10/19/17 06:00 10/30/17 05:46 Multivitamins (Theragran) 1 tab DAILY PO 10/19/17 09:00 10/30/17 08:09 Docusate Sodium (Colace) 100 mg BID PO 10/18/17 21:00 10/30/17 08:10 Clonidine (Catapres) 0.1 mg Q6H PRN PO SBP>160, DBP>90 10/18/17 18:30 10/28/17 07:35 Hydralazine HCl (Apresoline) 50 mg Q8HR PO 10/21/17 22:00 10/30/17 05:45 Miscellaneous Information ([facility] Information) Patient in critical care unit? Ass... Q361D .XX 10/23/17 23:00 10/23/17 23:00 Aspirin (Aspirin Chew) 81 mg DAILY CHEW 10/24/17 09:00 10/30/17 08:09 Chlorhexidine Gluconate (Peridex 0.12% Liq) 15 ml BID@08,20 MT 10/24/17 20:00 10/30/17 08:00 Famotidine (Pepcid) 10 mg BID PO 10/24/17 11:00 Future Hold 10/24/17 12:19 Heparin Sodium/ Dextrose 250 ml @ 18 mls/hr TITRATE PRN IV Coagulation Management 10/24/17 17:45 Future hold 10/29/17 17:19 Piperacillin Sod/ Tazobactam Sod 50 ml @ 100 mls/hr Q8H IV 10/25/17 18:00 10/30/17 02:34 Pantoprazole Sodium (Protonix Inj) 40 mg Q12H IV PUSH 10/25/17 21:00 10/30/17 08:10 Diltiazem HCl (Cardizem) 60 mg Q6HR OG-TUBE 10/25/17 12:00 10/30/17 05:45 Insulin Aspart (NovoLOG SUPPLEMENTAL SCALE) 1 Q6H SQ 10/26/17 08:00 10/30/17 02:38 Sodium Chloride 1,000 ml @ 0 mls/hr Q0M PRN OTHER For Prime & Rinse Back 10/26/17 12:43 10/28/17 18:30 Albumin Human 100 ml @ 60 mls/hr UNSCH PRN IV WITH DIALYSIS 10/26/17 12:45 10/26/17 16:00 Heparin Sodium (Porcine) (Heparin Inj) UNSCH PRN .XX WITH DIALYSIS 10/26/17 12:45 10/28/17 18:30 Gentamicin Sulfate (Gentamicin Inj) 20 mg UNSCH PRN OTHER WITH DIALYSIS 10/26/17 12:45 10/28/17 18:30 Diphenhydramine HCl (Benadryl) 25 mg UNSCH PRN PO for hives/itching/anaphylaxis 10/26/17 12:45 10/28/17 02:30 Metoprolol Tartrate (Lopressor Inj) 5 mg Q6H PRN IV PUSH HR > 100 10/28/17 02:15 10/29/17 00:47 Metoprolol Tartrate (Lopressor Inj) 5 mg Q5M PRN IV PUSH HR>100 10/28/17 05:15 10/28/17 07:35 Zolpidem Tartrate (Ambien) 10 mg HS PRN PO insomnia 10/28/17 22:15 10/28/17 22:14 Metoprolol Tartrate (Lopressor) 50 mg BID PO 10/29/17 09:00 10/30/17 08:09 Albuterol/ Ipratropium (Duoneb Neb) 1 ampule Q4HR NEB NEB 10/29/17 12:00 10/30/17 08:38 Clonidine (Catapres) 0.1 mg Q8HR PO 10/29/17 09:00 10/30/17 05:46 Objective Remarks GENERAL: elderly male, sitting up in bed watching TV. on 3.5L O2 via NC SKIN: Warm and dry. HEAD: Normocephalic. EYES: No scleral icterus. No injection or drainage. NECK: Supple, trachea midline. CARDIOVASCULAR: +S1/S2 RESPIRATORY: anterior gutierrez clear. on O2 via NC GASTROINTESTINAL: Abdomen soft, non-tender, nondistended. EXTREMITIES: No cyanosis NEUROLOGICAL: awake and alert. normal speech. moving extremities. Assessment/Plan Assessment 82y/o male with anemia, hypercalcemia, and acute renal failure. h/o MGUS, hypertension, chronic kidney disease, hypothyroidism, colon cancer, anemia. Plan 1. IgG kappa Multiple Myeloma with Bone marrow involvement and skeletal mets, Anemia, hypercalcemia, and ARF, --skeletal survey indicating ill defined lesions that may be consistent with myeloma. --urine protein=~3g --[id number]=[id number]; free kappa light chains =5K --abnormal discrete band in gamma region noted. --s/p Aredia 60mg on 10/2310/25/17: await bone marrow biopsy results. discussed with at bedside. will give 1 unit pRBC for hgb 7.2. start decadron 10mg IV daily 10/26/17: continue Decadron 10mg IV. may consider increasing to 40mg tomorrow after first dialysis. 10/27/17: increase Decadron to 40mg Discussed diagnosis with patient Will consider initiating treatment with Velcade agree with dialysis 10/29: reviewed bone marrow biopsy results with . discussed continuing decadron. monitor renal function, electrolytes, CBC 10/30: last day of Decadron today. will consider starting Velcade tomorrow. monitor CBC, renal function 2. Atrial fibrillation and history of left lower extremity deep venous thrombosis. on heparin gtt. monitor H/H closely. 3. renal failure: started dialysis on 10/26. management per nephrology. Skylar Sanchez Oct 30, 2017 10:38 Chandler Lvoe MD Oct 30, 2017 22:01
[2017-10-30] MEDS: GENTAMICIN SULFATE 20 MG/2 ML VIAL OTHER PRN (16:00)
[2017-10-30] MEDS: SODIUM CHLOR 0.9% 1000 ML INJ 1,000 ML OTHER PRN (16:00)
[2017-10-30] MEDS: HEPARIN SODIUM - IV 10,000 UNITS/10 ML VIAL PRN (16:00)
--- NOTE | 2017-10-30 16:05 | HHI.PR ---
Subjective Remarks Patient laying in bed, she stated "I am 100% good for at the bedside discussed with her with the patient No acute issue overnight is afebrile Plan: For starting Chemo tomorrow Objective Vitals Vital Signs Date Time Temp Pulse Resp B/P (MAP) Pulse Ox O2 Delivery O2 Flow Rate FiO2 10/30/17 14:00 89 10/30/17 12:00 98.8 76 18 139/79 (99) 97 10/30/17 12:00 89 10/30/17 10:00 89 10/30/17 08:40 95 Nasal Cannula 3.50 10/30/17 08:00 98.8 76 18 141/72 (95) 97 10/30/17 08:00 89 10/30/17 07:15 95 Nasal Cannula 2.00 10/30/17 06:00 91 10/30/17 04:00 98.9 89 18 129/73 (91) 97 10/30/17 04:00 89 10/30/17 02:00 90 10/30/17 00:00 98.8 106 18 147/70 (95) 95 10/30/17 00:00 106 10/29/17 22:00 102 10/29/17 20:00 98.9 92 16 131/68 (89) 94 10/29/17 20:00 92 10/29/17 19:53 94 Nasal Cannula 3.50 10/29/17 19:00 93 Nasal Cannula 2.00 10/29/17 18:00 90 10/29/17 17:30 91 27 132/69 (90) 94 10/29/17 17:15 91 24 124/65 (84) 95 10/29/17 17:00 92 24 125/64 (84) 93 10/29/17 16:45 92 21 123/62 (82) 94 10/29/17 16:30 92 24 117/62 (80) 93 10/29/17 16:15 90 27 109/56 (73) 94 I/O 10/29/17 10/29/17 10/29/17 10/30/17 10/30/17 10/30/17 07:00 15:00 23:00 07:00 15:00 23:00 Intake Total 100 ml 420 ml 170 ml Output Total 100 ml 100 ml 100 ml Balance 0 ml 320 ml 70 ml Intake Oral 50 ml 420 ml 120 ml IV Total 50 ml 50 ml Output Urine Total 100 ml 100 ml 100 ml # Bowel Movements 1 1 1 Result Diagram: 10/30/17 04510/30/17 045 Objective Remarks GENERAL: This is a well-nourished, well-developed patient, in no apparent distress. CARDIOVASCULAR: Irregularly irregular, no gallops, or rubs. RESPIRATORY: Relatively diminished breath sounds bilaterally GASTROINTESTINAL: Abdomen soft, non-tender, nondistended. Positive bowel sounds MUSCULOSKELETAL: Extremities without clubbing, cyanosis, or edema. Pedal pulses appreciated NEUROLOGICAL: Awake and alert. Moves all extremity. Normal speech.no focal neurological deficit A/P Problem List: (1) Acute renal failure ICD Code: N17.9 - Acute kidney failure, unspecified Status: Acute (2) Hypercalcemia ICD Code: E83.52 - Hypercalcemia Status: Acute (3) Symptomatic anemia ICD Code: D64.9 - Anemia, unspecified Status: Acute (4) Left leg DVT ICD Code: I82.402 - Acute embolism and thrombosis of unspecified deep veins of left lower extremity Status: Chronic (5) Type 2 diabetes mellitus ICD Code: E11.9 - Type 2 diabetes mellitus without complications Status: Acute (6) HTN (hypertension) ICD Code: I10 - Essential (primary) hypertension Status: Chronic Assessment and Plan 10/23: Mr. Mcintosh is an 82-year-old male. He came in the hospital secondary to progressive anemia. Hemoglobin today is 6.9. He has a past history of bleed which was not found to be GI related. Additional findings today are acute renal failure and hypercalcemia. He recalls that he might have had some kidney disease in the past but cannot specify. Looking in our past records his highest creatinine value have been 3.5 but currently his creatinine levels at 5.11. She does not report being dehydrated. He has had a fracture approximately 3 months ago and has been on bedrest until recently for this. Additionally he is on Eliquis. Eliquis combined with his renal condition may be contributory to blood loss. Renal dysfunction can also be contributory to his hypercalcemia. Shortness of breath and weakness have been his primary complaints. Patient underwent bone marrow biopsy by interventional radiology on 10/23. Around 9 PM patient developed altered mental status with speech difficulty and questionable left-sided facial weakness. Stroke alert was called. Head CT done during stroke alert was negative for bleed. Dr. Saunders from neurology was contacted. Patient's blood pressure at that time was 218 systolic. She ordered a nicardipine drip and transferred patient to ICU with critical care consult. I evaluated patient following his arrival to the ICU. At that time patient appeared comfortable not in any acute distress. He was moving all 4 extremities at the time and was completely awake and alert and oriented. He did have some tremors in bilateral upper extremities however stated that he was feeling cold and shivering. 10/24: Patient did take his aspirin after talking to his last night. He did receive 0.5 mg Ativan last night for agitation and morphine around 4 AM for pain and subsequently this morning was noted to be lethargic. His O2 sats dropped and he was placed on nonrebreather facemask. His sats improved with IV Narcan however he was also getting hypothermic and bradycardic. I spoke with patient's at bedside as patient did not appear to be protecting his airway. I proceeded with endotracheal intubation and patient was placed on mechanical ventilation. He is awaiting MRI brain. 10/25 MRI brain negative. On propofol, performing sedation vacation and will proceed with SBT and extubate if able. Oliguric overnight, UOP only 50 mL over the mold shifter. Creatinine 4.87. Initiating diuretic, discussed with Dr. Carlson. Transfusing 1 unit PRBC for Hgb 7.2 per hematology. On heparin drip. 10/26 Pathology now indicating MM. Was started on decadron yesterday by hematology. Was slow to wake up off propofol but was following commands yesterday evening on precedex drip. Propofol resumed overnight in view of some agitation and hypertension.. Would plan for CPAP trial and possible extubation today but will hold off on extubation for now as he may require Vascath placement for dialysis start. Will defer to nephrology, however creatinine continues uptrend and he is oliguric despite diuretic. 10/27 HD started yesterday. CPAP trial today and will extubate as tolerated. UOP 400 last 24 hours with diuretic. 10/28 Patient was extubated yesterday on 5L oxygen. s/p HD 10/27 with removal 2.5L 10/29 Patient s/p HD 10/28 with removal 3L. Received Restoril and Haldol overnight for agitation. Afebrile. 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 h/o MGUS now appears Multiple Myeloma chronic kidney disease hypothyroidism h/o colon cancer A/P: Acute encephalopathy Monitor neuro status -Aspirin 81 mg p.o. daily. -Continue anticoagulation with heparin drip. -MRA brain/ neck - no abnormality -MRI brain negative -MRI Cspine with degeneration C3/4 and C4/[address] León consulted NSG. - PT consulted -ammonia level normal. Cardiovascular: HTN AFIB On Cardizem 60 mg q6 hours, increase metoprolol 50 mg p.o. twice daily, add Clonidine 0.1mg Q8 Hydralazine 50 every 8 hours per nephrology, Monitor HR and BP keep MAP>65mmHg Echo showed EF 60-65%, normal LV diastolic function . Pulmonary: Acute hypercapnic respiratory failure suspected NANCY. - Continue with oxygen keep sats >92% Bronchodilators NIPPV PRN for resp distress GI/liver: Esophagitis History of colon cancer -On PO diet EGD 10/24LA class C esophagitis with NG trauma. Normal mucosa of stomach, duodenum. Continue PPI per GI recommendation Renal/: ZOFIA overlying CKD Light chain cast nephropathy Hypercalcemia , resolved -Received pamidronate for hypercalcemia per nephrology on 10/23. -R IJ vascath placed 10/26 and started on HD. s/p HD 10/28 with removal 3L -[facility]: Plasma cell myeloma Chronic anticoagulation due to history of atrial fibrillation and lower extremity DVT -Being followed by oncology. Had known MGUS. - bone marrow biopsy 10/23 c/w myeloma -Decadron started 10/25 , 40 mg IV daily per hematology. -Continue anticoagulation in view of history of A. fib , LE DVT -Transfused 1 unit packed red cells 10/25. -Started on aspirin 10/23 ID: -Pancultured ( Blood, sputum, Urine ) 10/24: NGTD Continue with abx ( Zosyn)monitor for signs of infections ( Fever, WBC) Microbiology: 10/24urine culture negative 10/24 sputum culture negative. 10/24 blood culture no growth to date Hypothyroidism Continue Synthroid 75 mg p.o. daily Monitor glucose while on Decadron , on SSI fo glycemic control TSH normal 10/19 Prophylaxis: SCDs. Heparin drip as per above. PPI Young Santoyo MD Oct 30, 2017 16:04
[2017-10-30] MEDS: HEPARIN-D5W 25,000 U/250 ML 250 ML IV PRN (17:04)
--- NOTE | 2017-10-30 17:57 | HHI.NPPN ---
Subjective History of Present Illness The patient is an 82 yo [place] male who presented to this facility on 10/18/17 at the urge of his natural resources extension educator and PCP for anemia. He has been having some fatigue and weakness over the past few weeks and a CBC showed a Hgb of 7.2 prompting evaluation at the hospital. The patient's is the primary historian. Was admitted here in Jun for a L femur fx that he sustained at home while turning while moving TV tray causing a twist and fall type injury on his left leg. reports spiral fracture of his left femur that he underwent ORIF. He subsequently developed a DVT in the same leg. Renal functions during that admission were overall normal with SCr at 0.8 baseline. Serum calcium normal at this admission at 8.6-9.0. In August, he developed A fib with RVR and had acute renal insufficiency though nephrology services were not called as his functions improved with correction of RVR (admitting SCr 2.40 on 08/29 and discharge on 09/01 at 1.74). Noted mild hypercalcemia during this admission at 10.7. 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 Byrne, but was many years ago as per the . Says that he never underwent bone marrow bx, but had multiple labs that "didn't change" so they opted to stop following up. Given his recent anemia, his PCP did refer him to Dr. Jordyn Garcia, but appointment not until November. No known CKD hx. Denies any recent NVD No NSAID use No recent abx. Besides the aforementioned health history as of recent, he has been in his usual state of health as per his . Has been on Calcium 600mg with 500IU Vitamin D, with an additional Vitamin D3 1000IU daily since his femur fx. Admitting SCr 2.11 that has improved to 4.47 at consult. Serum CCa 12.9 at admission Interval History Patient appears much more alert today. No verbal complaints. Review of Systems General Constitutional: Fatigue Objective Data Data 10/30/17 10/31/17 19:00 07:00 Output Total 3500 ml Balance -3500 ml Hemodialysis 3500 ml Vital Signs Date Time Temp Pulse Resp B/P (MAP) Pulse Ox O2 Delivery O2 Flow Rate FiO2 10/30/17 14:00 89 10/30/17 12:00 98.8 76 18 139/79 (99) 97 10/30/17 12:00 89 10/30/17 10:00 89 10/30/17 08:40 95 Nasal Cannula 3.50 10/30/17 08:00 98.8 76 18 141/72 (95) 97 10/30/17 08:00 89 10/30/17 07:15 95 Nasal Cannula 2.00 10/30/17 06:00 91 10/30/17 04:00 98.9 89 18 129/73 (91) 97 10/30/17 04:00 89 10/30/17 02:00 90 10/30/17 00:00 98.8 106 18 147/70 (95) 95 10/30/17 00:00 106 10/29/17 22:00 102 10/29/17 20:00 98.9 92 16 131/68 (89) 94 10/29/17 20:00 92 10/29/17 19:53 94 Nasal Cannula 3.50 10/29/17 19:00 93 Nasal Cannula 2.00 10/29/17 18:00 90 -: 10/30/17 0450 10/30/17 0450 Physical Exam General Appearance: Well Developed, Well Nourished, No Acute Distress, Comfortable Eyes Eye Exam: Sclera White Pulmonary Resp Exam: Clear Bilaterally, Breath Sounds Equal, No Distress Cardiology CV Exam: Regular, Normal Sinus Rhythm Gastrointestinal/Abdomen GI Exam: Soft, Non-Tender Genitourinary Exam: Clear Urine Integumentary Skin Exam: Clear, Warm Extremeties Extremities Exam: Trace Edema, Moderate Edema (edema legs ) Neurologic Neuro Exam: Awake, Speech Clear, Moving All Extremities Assessment/Plan Discussed Condition With: Patient, Spouse Problem List: (1) Acute renal failure ICD Codes: N17.9 - Acute kidney failure, unspecified Status: Acute Plan: The patient's volume status is much improved today postdialysis. He is making some urine but still oliguric. I will order furosemide daily. Next dialysis tentatively day after tomorrow. If the patient continues to remain dialysis dependent will need to consider placement of a hemodialysis PermCath to replace the Vas-Cath prior to discharge. Serum kapa chain serum level well over 1500 at 5385.6 mg/L with kapa chains evident in the urine and proteinuria consisting of 100% monoclonal protein according to lab. 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 Medications should be adjusted for the patient's renal decline. Avoid nephrotoxic agents such as iodinated contrast dyes and NSAIDs. Avoid gadolinium. (2) Hypercalcemia ICD Codes: E83.52 - Hypercalcemia Status: Acute Plan: Calcium level has improved. Likely related to a combination of dialysis and biphosphonate (3) Atrial fibrillation ICD Codes: I48.91 - Unspecified atrial fibrillation Plan: Management as per primary team (4) HTN (hypertension) ICD Codes: I10 - Essential (primary) hypertension Status: Chronic Plan: Continue current regimen Given PRN Labetalol and Clonidine today. Will adjust further tomorrow if needed. Juan Ramon Carlson MD Oct 30, 2017 17:56
[2017-10-30] MEDS: METOPROLOL TARTRATE 5 MG/5 ML VIAL IV PUSH PRN (21:06)
[2017-10-31] VITALS (16 sets, daily range): BP systolic 93–149; BP diastolic 55–75; PULSE 90–140; RESP 18–26; TEMP 97.3–98.8; O2SAT 94–98
[2017-10-31] MEDS: DILTIAZEM HCL 60 MG TAB OG-TUBE SCH ×2 (01:12→06:00)
[2017-10-31] MEDS: PIPERACIL-TAZO 2.25 GM PREMIX 50 ML IV SCH ×3 (01:15→17:21)
[2017-10-31] MEDS: INSULIN ASPART SUPPLEMENTAL SCALE SQ SCH ×4 (01:17→20:00)
[2017-10-31] MEDS: RESP: ALBUTEROL 2.5 MG/IPRATROPIUM 0.5 MG NEB (SCH) NEB ×6 (03:09→23:19)
[2017-10-31 04:32] LABS: ALBUMIN 3.2 GM/DL (3.4-5.0); BICARBONATE 25.1 MEQ/L (21.0-32.0); CREATININE 4.32 MG/DL (0.60-1.30)
[2017-10-31 04:36] LABS: PHOSPHORUS 5.4 MG/DL (2.5-4.9)
[2017-10-31] MEDS: cloNIDine HCL 0.1 MG TAB PO SCH (06:00)
[2017-10-31] MEDS: hydrALAZINE HCL 25 MG TAB PO SCH ×3 (06:00→21:27)
[2017-10-31] MEDS: LEVOTHYROXINE SODIUM 75 MCG TAB PO SCH (06:32)
[2017-10-31] MEDS: CHOLECALCIFEROL (VIT D3) 1000 UNIT TAB PO SCH (08:51)
[2017-10-31] MEDS: ASPIRIN 81 MG CHEW TAB CHEW SCH (08:54)
[2017-10-31] MEDS: PANTOPRAZOLE SODIUM 40 MG VIAL IV PUSH SCH ×2 (08:55→21:28)
[2017-10-31] MEDS: METOPROLOL TARTRATE 50 MG TAB PO SCH (08:55)
[2017-10-31] MEDS: MULTIVITAMIN TAB PO SCH (08:55)
[2017-10-31] MEDS: DOCUSATE SODIUM 100 MG CAP PO SCH ×2 (08:56→21:28)
[2017-10-31] MEDS ORDERED: FUROSEMIDE 20 MG/2 ML VIAL IV PUSH SCH (09:00)
[2017-10-31 09:35] LABS: AUTOMATED NEUTROPHIL # 11.2 TH/MM3 (1.8-7.7); BASOPHIL % 0.1 % (0.0-2.0); HEMATOCRIT 22.1 % (39.0-51.0); HEMOGLOBIN 7.1 GM/DL (13.0-17.0); LYMPH % 5.6 % (9.0-44.0); LYMPHOCYTE # 0.7 TH/MM3 (1.0-4.8); MEAN CELL VOLUME 87.1 FL (80.0-100.0); MEAN CORPUSCULAR HEMOGLOBIN 28.2 PG (27.0-34.0); MEAN CORPUSCULAR HGB CONC 32.3 % (32.0-36.0); MEAN PLATELET VOLUME 8.1 FL (7.0-11.0); MONO % 8.1 % (0.0-8.0); MONOCYTE # 1.1 TH/MM3 (0-0.9); NEUT % 86.2 % (16.0-70.0); PLATELET COUNT 189 TH/MM3 (150-450); RED BLOOD COUNT 2.54 MIL/MM3 (4.50-5.90)
[2017-10-31] MEDS ORDERED: SODIUM CHLOR 0.9% 250 ML INJ 250 ML IV ONE (09:45)
[2017-10-31 10:13] LABS: ACANTHOCYTES OCC (NORMAL); BANDS 6 % (0-6); CORRECTED NUCLEATED RBC 1 /100 WBC (0-0); LYMPHOCYTES 4 % (9-44); MONOCYTES 4 % (0-8); NUCLEATED RED BLOOD CELL 1 (0-0); OVALOCYTES 1+ (NORMAL); POLYS (SEG NEUTROPHILS) 86 % (16-70); TOXIC GRANULATION 1+ (NORMAL)
--- NOTE | 2017-10-31 10:20 | HHI.PR ---
Subjective Remarks I was called by Mrs. Burdick dispute resolution specialist oncologist VALERI she informed me that patient looks diaphoretic and not doing too well, I went to see the patient his at the bedside, he was unresponsive with slight sluggish fixed in his left pupil, hypotensive with 80/50, tachycardic in the 130 A. fib I called rapid response ordered stat ABG, head CT without contrast, lactic acid , CBC BMP I ordered stat 500 cc bolus. I called surgical supply assistant Dr. Montes De Oca discussed with him he graciously came to the room patient continued to be unresponsive despite pain stimuli, his blood sugar tested was 212, stroke alert was called, due to suspecting left pupil fixation, heparin was stopped Patient was made flat starting to prepare for intubation to protect his airway, few minutes patient started to wake up and answer command, answering simple question doing thumb up Patient continue on his way for head CT and for abdominal CT he continued to complain of some abdominal pain, unfortunately patient recently had acute renal failure, I discussed with Dr. Montes De Oca will contact [facility] regarding need for contrast of the abdomen Objective Vitals Vital Signs Date Time Temp Pulse Resp B/P (MAP) Pulse Ox O2 Delivery O2 Flow Rate FiO2 10/31/17 08:16 98 Nasal Cannula 4.00 10/31/17 08:00 98.8 133 18 93/55 (68) 97 10/31/17 08:00 98 10/31/17 06:00 98 10/31/17 04:00 98.8 99 18 136/75 (95) 97 10/31/17 04:00 99 10/31/17 02:00 95 10/31/17 00:00 98.7 98 20 149/75 (99) 98 10/31/17 00:00 98 10/30/17 22:00 106 10/30/17 20:01 98 Nasal Cannula 3.50 10/30/17 20:00 101 10/30/17 20:00 98.4 101 16 132/77 (95) 92 10/30/17 19:00 94 Nasal Cannula 2.00 10/30/17 18:00 89 10/30/17 16:00 89 10/30/17 16:00 98.8 130 18 128/74 (92) 97 10/30/17 14:00 89 10/30/17 12:00 98.8 76 18 139/79 (99) 97 10/30/17 12:00 89 I/O 10/30/17 10/30/17 10/30/17 10/31/17 10/31/17 10/31/17 07:00 15:00 23:00 07:00 15:00 23:00 Intake Total 170 ml 60 ml Output Total 100 ml 3550 ml 150 ml Balance 70 ml -3550 ml -90 ml Intake Oral 120 ml 60 ml IV Total 50 ml Output Urine Total 100 ml 50 ml 150 ml Hemodialysis 3500 ml # Bowel Movements 1 1 Result Diagram: 10/31/17 0909 10/31/17 0316 Objective Remarks GENERAL: Patient unresponsive CARDIOVASCULAR: Irregularly irregular, RESPIRATORY: Relatively diminished breath sounds bilaterally GASTROINTESTINAL: Abdomen soft, non-tender, nondistended. Positive bowel sounds MUSCULOSKELETAL: Extremities without clubbing, cyanosis, or edema. Pedal pulses appreciated NEUROLOGICAL: Unresponsive, obtunded A/P Problem List: (1) Acute renal failure ICD Code: N17.9 - Acute kidney failure, unspecified Status: Acute (2) Hypercalcemia ICD Code: E83.52 - Hypercalcemia Status: Acute (3) Symptomatic anemia ICD Code: D64.9 - Anemia, unspecified Status: Acute (4) Left leg DVT ICD Code: I82.402 - Acute embolism and thrombosis of unspecified deep veins of left lower extremity Status: Chronic (5) Type 2 diabetes mellitus ICD Code: E11.9 - Type 2 diabetes mellitus without complications Status: Acute (6) HTN (hypertension) ICD Code: I10 - Essential (primary) hypertension Status: Chronic Assessment and Plan 10/23: Mr. Mcintosh is an 82-year-old male. He came in the hospital secondary to progressive anemia. Hemoglobin today is 6.9. He has a past history of bleed which was not found to be GI related. Additional findings today are acute renal failure and hypercalcemia. He recalls that he might have had some kidney disease in the past but cannot specify. Looking in our past records his highest creatinine value have been 3.5 but currently his creatinine levels at 5.11. She does not report being dehydrated. He has had a fracture approximately 3 months ago and has been on bedrest until recently for this. Additionally he is on Eliquis. Eliquis combined with his renal condition may be contributory to blood loss. Renal dysfunction can also be contributory to his hypercalcemia. Shortness of breath and weakness have been his primary complaints. Patient underwent bone marrow biopsy by interventional radiology on 10/23. Around 9 PM patient developed altered mental status with speech difficulty and questionable left-sided facial weakness. Stroke alert was called. Head CT done during stroke alert was negative for bleed. Dr. Saunders from neurology was contacted. Patient's blood pressure at that time was 218 systolic. She ordered a nicardipine drip and transferred patient to ICU with critical care consult. I evaluated patient following his arrival to the ICU. At that time patient appeared comfortable not in any acute distress. He was moving all 4 extremities at the time and was completely awake and alert and oriented. He did have some tremors in bilateral upper extremities however stated that he was feeling cold and shivering. 10/24: Patient did take his aspirin after talking to his last night. He did receive 0.5 mg Ativan last night for agitation and morphine around 4 AM for pain and subsequently this morning was noted to be lethargic. His O2 sats dropped and he was placed on nonrebreather facemask. His sats improved with IV Narcan however he was also getting hypothermic and bradycardic. I spoke with patient's at bedside as patient did not appear to be protecting his airway. I proceeded with endotracheal intubation and patient was placed on mechanical ventilation. He is awaiting MRI brain. 10/25 MRI brain negative. On propofol, performing sedation vacation and will proceed with SBT and extubate if able. Oliguric overnight, UOP only 50 mL over the lead systems analyst. Creatinine 4.87. Initiating diuretic, discussed with Dr. Carlson. Transfusing 1 unit PRBC for Hgb 7.2 per hematology. On heparin drip. 10/26 Pathology now indicating MM. Was started on decadron yesterday by hematology. Was slow to wake up off propofol but was following commands yesterday evening on precedex drip. Propofol resumed overnight in view of some agitation and hypertension.. Would plan for CPAP trial and possible extubation today but will hold off on extubation for now as he may require Vascath placement for dialysis start. Will defer to nephrology, however creatinine continues uptrend and he is oliguric despite diuretic. 10/27 HD started yesterday. CPAP trial today and will extubate as tolerated. UOP 400 last 24 hours with diuretic. 10/28 Patient was extubated yesterday on 5L oxygen. s/p HD 10/27 with removal 2.5L 10/29 Patient s/p HD 10/28 with removal 3L. Received Restoril and Haldol overnight for agitation. Afebrile. 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 Earlier this morning creatinine was 4.32, we will transfer care to intensive care service, discussed in length with Dr. Montes De Oca critical crate icer etime 55minute A/P: 82 y/o male with Acute Encephalopathy Hypothermia Uncontrolled hypertension History of atrial fibrillation anemia hypercalcemia acute renal failure. h/o MGUS now appears Multiple Myeloma chronic kidney disease hypothyroidism h/o colon cancer A/P: Acute encephalopathy Monitor neuro status -Aspirin 81 mg p.o. daily. -Continue anticoagulation with heparin drip. -MRA brain/ neck - no abnormality -MRI brain negative -MRI Cspine with degeneration C3/4 and C4/[address] León consulted NSG. - PT consulted -ammonia level normal. Cardiovascular: HTN AFIB On Cardizem 60 mg q6 hours, increase metoprolol 50 mg p.o. twice daily, add Clonidine 0.1mg Q8 Hydralazine 50 every 8 hours per nephrology, Monitor HR and BP keep MAP>65mmHg Echo showed EF 60-65%, normal LV diastolic function . Pulmonary: Acute hypercapnic respiratory failure suspected NANCY. - Continue with oxygen keep sats >92% Bronchodilators NIPPV PRN for resp distress GI/liver: Esophagitis History of colon cancer -On PO diet EGD 10/24LA class C esophagitis with NG trauma. Normal mucosa of stomach, duodenum. Continue PPI per GI recommendation Renal/: ZOFIA overlying CKD Light chain cast nephropathy Hypercalcemia , resolved -Received pamidronate for hypercalcemia per nephrology on 10/23. -R IJ vascath placed 10/26 and started on HD. s/p HD 10/28 with removal 3L -Nephrology following. Dr. Carlson [facility]: Plasma cell myeloma Chronic anticoagulation due to history of atrial fibrillation and lower extremity DVT -Being followed by oncology. Had known MGUS. - bone marrow biopsy 10/23 c/w myeloma -Decadron started 10/25 , 40 mg IV daily per hematology. -Continue anticoagulation in view of history of A. fib , LE DVT -Transfused 1 unit packed red cells 10/25. -Started on aspirin 10/23 ID: -Pancultured ( Blood, sputum, Urine ) 10/24: NGTD Continue with abx ( Zosyn)monitor for signs of infections ( Fever, WBC) Microbiology: 10/24urine culture negative 10/24 sputum culture negative. 10/24 blood culture no growth to date Hypothyroidism Continue Synthroid 75 mg p.o. daily Monitor glucose while on Decadron , on SSI fo glycemic control TSH normal 10/19 Prophylaxis: SCDs. Heparin drip as per above. PPI Young Santoyo MD Oct 31, 2017 10:20
--- NOTE | 2017-10-31 10:44 | RADRPT ---
EXAM DATE: 10/31/2017 10:34 AM EDT AGE/SEX: 82 years / Male INDICATIONS: Stroke alert, possible seizure and unresponsiveness. CLINICAL DATA: This is the patient's initial encounter. Patient reports that signs and symptoms have been present for 1 day and indicates a pain score of Nonresponsive. MEDICAL/SURGICAL HISTORY: Cardiovascular disease. Carcinoma, colon. None. RADIATION DOSE: 39.88 CTDI (mGy) COMPARISON: [facility] [place]/O [place]AST, 10/23/2017. . Report was called by Dr. Peres to Dr. Schwarz at 1040. TECHNIQUE: CT of the head without contrast. Using automated exposure control and adjustment of the mA and/or kV according to patient size, radiation dose was kept as low as reasonably achievable to ob tain optimal diagnostic quality images. FINDINGS: Cerebrum: The ventricles are normal for age. No evidence of midline shift, mass lesion, hemorrhage or acute infarction. No extraaxial fluid collections are seen. Posterior Fossa: The cerebellum and brainstem are intact. The 4th ventricle is midline. The cerebe llopontine angle is unremarkable. Extracranial: The visualized portion of the orbits is intact. Skull: The calvaria is intact. No evidence of skull fracture. CONCLUSION: 1. Stable exam without evidence of acute infarct, hemorrhage, mass or edema. 2. No change compared to earlier study on 10/23 Electronically signed by: Rubén Peres MD 10/31/2017 10:42 AM EDT
[2017-10-31] MEDS ORDERED: PROTAMINE SULFATE 50 MG/5 ML VIAL IV PUSH ONE (11:00)
[2017-10-31] MEDS: MORPHINE SULFATE 4 MG/ML INJ IV PRN ×2 (11:00→15:01)
[2017-10-31 11:33] LABS: AUTOMATED NEUTROPHIL # 9.5 TH/MM3 (1.8-7.7); BASOPHIL % 0.1 % (0.0-2.0); LYMPH % 6.8 % (9.0-44.0); LYMPHOCYTE # 0.8 TH/MM3 (1.0-4.8); MEAN CORPUSCULAR HEMOGLOBIN 28.7 PG (27.0-34.0); MEAN CORPUSCULAR HGB CONC 32.6 % (32.0-36.0); MEAN PLATELET VOLUME 8.4 FL (7.0-11.0); MONO % 7.3 % (0.0-8.0); MONOCYTE # 0.8 TH/MM3 (0-0.9); NEUT % 85.8 % (16.0-70.0); PLATELET COUNT 168 TH/MM3 (150-450); RED BLOOD COUNT 2.16 MIL/MM3 (4.50-5.90); RED CELL DISTRIBUTION WIDTH 17.8 % (11.6-17.2); WHITE BLOOD COUNT 11.1 TH/MM3 (4.0-11.0)
--- NOTE | 2017-10-31 11:38 | PD.ONC.PN ---
Subjective Subjective Remarks Afebrile overnight. late entry, patient seen ~1030AM. Patient is lethargic and diaphoretic. at bedside states he was talking more this AM. patient does not answer my questions during interview. Objective Data Date Time Temp Pulse Resp B/P (MAP) Pulse Ox O2 Delivery O2 Flow Rate FiO2 10/31/17 10:51 95 3.00 10/31/17 10:49 94 10/31/17 08:16 98 Nasal Cannula 4.00 10/31/17 08:00 98.8 133 18 93/55 (68) 97 10/31/17 08:00 98 10/31/17 06:00 98 10/31/17 04:00 98.8 99 18 136/75 (95) 97 10/31/17 04:00 99 10/31/17 02:00 95 10/31/17 00:00 98.7 98 20 149/75 (99) 98 10/31/17 00:00 98 10/30/17 22:00 106 10/30/17 20:01 98 Nasal Cannula 3.50 10/30/17 20:00 101 10/30/17 20:00 98.4 101 16 132/77 (95) 92 10/30/17 19:00 94 Nasal Cannula 2.00 10/30/17 18:00 89 10/30/17 16:00 89 10/30/17 16:00 98.8 130 18 128/74 (92) 97 10/30/17 14:00 89 10/30/17 12:00 98.8 76 18 139/79 (99) 97 10/30/17 12:00 89 10/31/17 10/31/17 10/31/17 07:00 15:00 23:00 Intake Total 60 ml Output Total 150 ml Balance -90 ml Result Diagram: 10/31/17 0909 10/31/17 0316 Laboratory Results Laboratory Tests Test 10/31/17 03:16 10/31/17 09:09 10/31/17 10:08 10/31/17 11:17 Blood Urea Nitrogen 46 MG/DL Creatinine 4.32 MG/DL Random Glucose 138 MG/DL Albumin 3.2 GM/DL Calcium Level 8.0 MG/DL Phosphorus Level 5.4 MG/DL Sodium Level 138 MEQ/L Potassium Level 3.6 MEQ/L Chloride Level 98 MEQ/L Carbon Dioxide Level 25.1 MEQ/L Anion Gap 15 MEQ/L Estimat Glomerular Filtration Rate 13 ML/MIN White Blood Count 13.0 TH/MM3 Red Blood Count 2.54 MIL/MM3 Hemoglobin 7.1 GM/DL Hematocrit 22.1 % Mean Corpuscular Volume 87.1 FL Mean Corpuscular Hemoglobin 28.2 PG Mean Corpuscular Hemoglobin Concent 32.3 % Red Cell Distribution Width 19.0 % Platelet Count 189 TH/MM3 Mean Platelet Volume 8.1 FL Neutrophils (%) (Auto) 86.2 % Lymphocytes (%) (Auto) 5.6 % Monocytes (%) (Auto) 8.1 % Eosinophils (%) (Auto) 0.0 % Basophils (%) (Auto) 0.1 % Neutrophils # (Auto) 11.2 TH/MM3 Lymphocytes # (Auto) 0.7 TH/MM3 Monocytes # (Auto) 1.1 TH/MM3 Eosinophils # (Auto) 0.0 TH/MM3 Basophils # (Auto) 0.0 TH/MM3 CBC Comment AUTO DIFF Differential Total Cells Counted 100 Neutrophils % (Manual) 86 % Band Neutrophils % 6 % Lymphocytes % 4 % Monocytes % 4 % Neutrophils # (Manual) 12.0 TH/MM3 Nucleated Red Blood Cells 1 /100 WBC Differential Comment FINAL DIFF MANUAL Toxic Granulation 1+ Platelet Estimate NORMAL Platelet Morphology Comment NORMAL Ovalocytes 1+ Acanthocytes OCC Blood Gas Puncture Site LT RADIAL Blood Gas Patient Temperature 98.6 Blood Gas HCO3 28 mmol/L Blood Gas Base Excess 4.6 mmol/L Blood Gas Oxygen Saturation 95 % Arterial Blood pH 7.51 Arterial Blood Partial Pressure CO2 35 mmHg Arterial Blood Partial Pressure O2 95 mmHg Arterial Blood Oxygen Content 8.9 Vol % Arterial Blood Carboxyhemoglobin 0.8 % Arterial Blood Methemoglobin 1.6 % Blood Gas Hemoglobin 6.5 G/DL Oxygen Delivery Device NASAL CANNULA Blood Gas Liter Flow 3 L/M Bedside Hemoglobin 6.1 G/DL Bedside Hematocrit 18.0 % Bedside Sodium 138 MMOL/L Bedside Potassium 3.7 MMOL/L Bedside Chloride 98 MMOL/L Bedside Blood Urea Nitrogen 50 MG/DL Bedside Creatinine 5.1 MG/DL Bedside Glucose 156 MG/DL Imaging Studies Last [address] 10/31/17 0000 Signed Impressions: CONCLUSION: 1. Stable exam without evidence of acute infarct, hemorrhage, mass or edema. 2. No change compared to earlier study on 10/23 Administered Medications Medications (Trade) Dose Ordered Sig/Reggie Route PRN Reason Start Time Stop Time Status Last Admin Dose Admin Sodium Chloride (NS Flush) 2 ml UNSCH PRN IV FLUSH FLUSH AFTER USING IV ACCESS 10/18/17 14:15 10/25/17 08:22 Sodium Chloride (NS Flush) 2 ml BID IV FLUSH 10/18/17 21:00 10/30/17 20:33 Morphine Sulfate (Morphine Inj) 4 mg Q3H PRN IV Pain 6-10;if unable to take PO 10/18/17 14:45 10/28/17 03:42 Naloxone HCl (Narcan Inj) 0.4 mg UNSCH PRN IV PUSH SEE LABEL COMMENTS 10/18/17 14:15 10/24/17 06:58 Cholecalciferol (Vitamin D3) 2,000 units DAILY PO 10/19/17 09:00 10/31/17 08:51 Levothyroxine Sodium (Synthroid) 75 mcg DAILY@0600 PO 10/19/17 06:00 10/31/17 06:32 Multivitamins (Theragran) 1 tab DAILY PO 10/19/17 09:00 10/31/17 08:55 Docusate Sodium (Colace) 100 mg BID PO 10/18/17 21:00 10/31/17 08:56 Clonidine (Catapres) 0.1 mg Q6H PRN PO SBP>160, DBP>90 10/18/17 18:30 10/28/17 07:35 Hydralazine HCl (Apresoline) 50 mg Q8HR PO 10/21/17 22:00 10/30/17 20:35 Miscellaneous Information ([facility] [place] [facility] Information) Patient in critical care unit? Ass... Q361D .XX 10/23/17 23:00 10/23/17 23:00 Aspirin (Aspirin Chew) 81 mg DAILY CHEW 10/24/17 09:00 10/31/17 08:54 Chlorhexidine Gluconate (Peridex 0.12% Liq) 15 ml BID@08,20 MT 10/24/17 20:00 10/30/17 20:34 Famotidine (Pepcid) 10 mg BID PO 10/24/17 11:00 Future Hold 10/24/17 12:19 Heparin Sodium/ Dextrose 250 ml @ 18 mls/hr TITRATE PRN IV Coagulation Management 10/24/17 17:45 Future hold 10/30/17 17:04 Piperacillin Sod/ Tazobactam Sod 50 ml @ 100 mls/hr Q8H IV 10/25/17 18:00 10/31/17 01:15 Pantoprazole Sodium (Protonix Inj) 40 mg Q12H IV PUSH 10/25/17 21:00 10/31/17 08:55 Diltiazem HCl (Cardizem) 60 mg Q6HR OG-TUBE 10/25/17 12:00 10/31/17 01:12 Insulin Aspart (NovoLOG SUPPLEMENTAL SCALE) 1 Q6H SQ 10/26/17 08:00 10/30/17 20:34 Sodium Chloride 1,000 ml @ 0 mls/hr Q0M PRN OTHER For Prime & Rinse Back 10/26/17 12:43 10/30/17 16:00 Albumin Human 100 ml @ 60 mls/hr UNSCH PRN IV WITH DIALYSIS 10/26/17 12:45 10/26/17 16:00 Heparin Sodium (Porcine) (Heparin Inj) UNSCH PRN .XX WITH DIALYSIS 10/26/17 12:45 10/30/17 16:00 Gentamicin Sulfate (Gentamicin Inj) 20 mg UNSCH PRN OTHER WITH DIALYSIS 10/26/17 12:45 10/30/17 16:00 Diphenhydramine HCl (Benadryl) 25 mg UNSCH PRN PO for hives/itching/anaphylaxis 10/26/17 12:45 10/28/17 02:30 Metoprolol Tartrate (Lopressor Inj) 5 mg Q6H PRN IV PUSH HR > 100 10/28/17 02:15 10/29/17 00:47 Metoprolol Tartrate (Lopressor Inj) 5 mg Q5M PRN IV PUSH HR>100 10/28/17 05:15 10/30/17 21:06 Zolpidem Tartrate (Ambien) 10 mg HS PRN PO insomnia 10/28/17 22:15 10/28/17 22:14 Metoprolol Tartrate (Lopressor) 50 mg BID PO 10/29/17 09:00 10/31/17 08:55 Albuterol/ Ipratropium (Duoneb Neb) 1 ampule Q4HR NEB NEB 10/29/17 12:00 10/31/17 11:19 Clonidine (Catapres) 0.1 mg Q8HR PO 10/29/17 09:00 10/30/17 20:35 Furosemide (Lasix Inj) 60 mg DAILY IV PUSH 10/31/17 09:00 10/31/17 08:55 Objective Remarks GENERAL: Elderly male, sitting up in bed, diaphoretic, pale and lethargic. SKIN: Warm and dry. +clammy HEAD: Normocephalic. EYES: No injection or drainage. NECK: Supple, trachea midline. CARDIOVASCULAR: +S1/S2, tachy RESPIRATORY: anterior gutierrez clear. on 4L O2 via NC GASTROINTESTINAL: Abdomen mildly distended, ttp with grimace in RLQ EXTREMITIES: No cyanosis NEUROLOGICAL: lethargic, does not track with eyes, follows some commands. moving all extremities. no facial droop. Assessment/Plan Assessment 82y/o male with anemia, hypercalcemia, and acute renal failure. h/o MGUS, hypertension, chronic kidney disease, hypothyroidism, colon cancer, anemia. Plan 1. IgG kappa Multiple Myeloma with Bone marrow involvement and skeletal mets, Anemia, hypercalcemia, and ARF, --skeletal survey indicating ill defined lesions that may be consistent with myeloma. --urine protein=~3g --YoG=[id number]; free kappa light chains =5K --abnormal discrete band in gamma region noted. --s/p Aredia 60mg on 10/2310/25/17: await bone marrow biopsy results. discussed with at bedside. will give 1 unit pRBC for hgb 7.2. start decadron 10mg IV daily 10/26/17: continue Decadron 10mg IV. may consider increasing to 40mg tomorrow after first dialysis. 10/27/17: increase Decadron to 40mg Discussed diagnosis with patient Will consider initiating treatment with Velcade agree with dialysis 10/29: reviewed bone marrow biopsy results with . discussed continuing decadron. monitor renal function, electrolytes, CBC 10/30: last day of Decadron today. will consider starting Velcade tomorrow. monitor CBC, renal function 10/31: will wait until acute events have stabilized before considering further treatment 2. Atrial fibrillation and history of left lower extremity deep venous thrombosis. on heparin gtt. monitor H/H closely. 3. renal failure: started dialysis on 10/26. management per nephrology. 4. altered mental status --unclear etiology, discussed with Dr. Santoyo immediately after my exam who will come to see the patient directly. 5. abdominal pain. --unclear etiology for patient's RLQ abdominal pain. will obtain CT abdomen/ pelvis. unfortunately cannot use contrast Attending Statement The exam, history, and the medical decision-making described in the above note were completed with the assistance of the mid-level provider. I reviewed and agree with the findings presented. I attest that I had a [id number] encounter with the patient on the same day, and personally performed and documented my assessment and findings in the medical record. CT abdomen shows retroperitoneal bleed monitor Hb D/C heparin and Asprin will defer Velcade treatment until next week. d/w patient's Skylar Sanchez PAU Oct 31, 2017 11:38 Chandler Love MD Oct 31, 2017 22:54
--- NOTE | 2017-10-31 11:39 | HHI.CCPN ---
Subjective Remarks/Hospital Course 10/23: Mr. Mcintosh is an 82-year-old male. He came in the hospital secondary to progressive anemia. Hemoglobin today is 6.9. He has a past history of bleed which was not found to be GI related. Additional findings today are acute renal failure and hypercalcemia. He recalls that he might have had some kidney disease in the past but cannot specify. Looking in our past records his highest creatinine value have been 3.5 but currently his creatinine levels at 5.11. She does not report being dehydrated. He has had a fracture approximately 3 months ago and has been on bedrest until recently for this. Additionally he is on Eliquis. Eliquis combined with his renal condition may be contributory to blood loss. Renal dysfunction can also be contributory to his hypercalcemia. Shortness of breath and weakness have been his primary complaints. Patient underwent bone marrow biopsy by interventional radiology on 10/23. Around 9 PM patient developed altered mental status with speech difficulty and questionable left-sided facial weakness. Stroke alert was called. Head CT done during stroke alert was negative for bleed. Dr. Saunders from neurology was contacted. Patient's blood pressure at that time was 218 systolic. She ordered a nicardipine drip and transferred patient to ICU with critical care consult. I evaluated patient following his arrival to the ICU. At that time patient appeared comfortable not in any acute distress. He was moving all 4 extremities at the time and was completely awake and alert and oriented. He did have some tremors in bilateral upper extremities however stated that he was feeling cold and shivering. 10/24: Patient did take his aspirin after talking to his last night. He did receive 0.5 mg Ativan last night for agitation and morphine around 4 AM for pain and subsequently this morning was noted to be lethargic. His O2 sats dropped and he was placed on nonrebreather facemask. His sats improved with IV Narcan however he was also getting hypothermic and bradycardic. I spoke with patient's at bedside as patient did not appear to be protecting his airway. I proceeded with endotracheal intubation and patient was placed on mechanical ventilation. He is awaiting MRI brain. 10/25 MRI brain negative. On propofol, performing sedation vacation and will proceed with SBT and extubate if able. Oliguric overnight, UOP only 50 mL over the shift supervisor melting. Creatinine 4.87. Initiating diuretic, discussed with Dr. Carlson. Transfusing 1 unit PRBC for Hgb 7.2 per hematology. On heparin drip. 10/26 Pathology now indicating MM. Was started on decadron yesterday by hematology. Was slow to wake up off propofol but was following commands yesterday evening on precedex drip. Propofol resumed overnight in view of some agitation and hypertension.. Would plan for CPAP trial and possible extubation today but will hold off on extubation for now as he may require Vascath placement for dialysis start. Will defer to nephrology, however creatinine continues uptrend and he is oliguric despite diuretic. 10/27 HD started yesterday. CPAP trial today and will extubate as tolerated. UOP 400 last 24 hours with diuretic. 10/28 Patient was extubated yesterday on 5L oxygen. s/p HD 10/27 with removal 2.5L 10/29 Patient s/p HD 10/28 with removal 3L. Received Restoril and Haldol overnight for agitation. Afebrile. Subjective: 10/31: RECONSULT NOTE: called by hospitalist physician for acute altered mental status. patient completely obtunded with disconjugate gaze, sbp 70s. while I was evaluating patient, he aroused and followed commands, appeared post-ictal. very acute change from prior. about 30 minutes prior to this episode, patient complained of severe abdominal pain to oncology PA. stat ABG demonstrated new drop of hgb by 1gm/dL from AM labs. taken down as stroke alert: head CT negative for acute bleed. discussed case with Dr. Schwarz- most likely seizure secondary to acute hypotensive episode. plan to load with [facility]. In addition, CT abd/pelvis done during stroke alert for new abdominal pain: large left psoas hematoma. discussed extensively with Dr. Ziyad Montes De Oca with IR- likely from venous origin and will stop with reversal of anticoagulation. immediately stopped heparin infusion and gave 50mg protamine. gave 2 units prbc emergent release blood as well as 2L crystalloid. BP responded. patient became more awake. repeat 4-hour non-contrasted CT abd/pelvis without evidence of hematoma expansion, and patient feels improved symptoms. Objective Vital Signs Date Time Temp Pulse Resp B/P (MAP) Pulse Ox O2 Delivery O2 Flow Rate FiO2 10/31/17 10:51 95 3.00 10/31/17 08:16 Nasal Cannula 10/31/17 08:00 98.8 133 18 93/55 (68) 10/27/17 13:43 36 Intake and Output 10/31/17 10/31/17 11/01/17 08:00 16:00 00:00 Intake Total 60 ml Output Total 150 ml Balance -90 ml Result Diagram: 10/31/17 0909 10/31/17 0316 Other Results Laboratory Tests Test 10/31/17 10:08 Blood Gas Puncture Site LT RADIAL Blood Gas Patient Temperature 98.6 Blood Gas HCO3 28 mmol/L (22-26) Blood Gas Base Excess 4.6 mmol/L (-2-2) Blood Gas Oxygen Saturation 95 % (90-100) Arterial Blood pH 7.51 (7.380-7.420) Arterial Blood Partial Pressure CO2 35 mmHg (38-42) Arterial Blood Partial Pressure O2 95 mmHg (61-120) Arterial Blood Oxygen Content 8.9 Vol % (12.0-20.0) Arterial Blood Carboxyhemoglobin 0.8 % (0-4) Arterial Blood Methemoglobin 1.6 % (0-2) Blood Gas Hemoglobin 6.5 G/DL (12.0-16.0) Oxygen Delivery Device NASAL CANNULA Blood Gas Liter Flow 3 L/M Imaging Last Impressions Chest X-Ray 10/26/17 0000 Signed Impressions: CONCLUSION: 1. Right central line in good position. No evidence of pneumothorax. 2. Bilateral infiltrates. Brain MRI 10/24/17 0600 Signed Impressions: CONCLUSION: Negative MR Brain non contrast. Neck Magnetic Resonance Angiography 10/24/17 0000 Signed Impressions: CONCLUSION: Normal study __ Percent stenosis is calculated using the diameter of the stenotic region over t he diameter of the normal distal internal carotid artery Head Magnetic Resonance Angiography 10/24/17 0000 Signed Impressions: CONCLUSION: Negative MRA Cow (Only of Matos) non contrast. Cervical Spine MRI 10/24/17 0000 Signed Impressions: CONCLUSION: 1. 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 2. 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 3. Multilevel significant neural foraminal narrowing as detailed at each level in the above discussion. 4. Lesion involving the spinous process of T2. This is incompletely characteri zed on this exam. Consider CT scan to further assess. Head CT 10/23/17 Signed Impressions: CONCLUSION: 1. Atrophy. 2. No acute intracranial abnormality. Bone Biopsy CT 10/23/17 Signed Impressions: CONCLUSION: 1. Uncomplicated CT guided bone marrow aspirate. 2. Uncomplicated CT guided bone marrow biopsy. Bone Osseous Survey 10/20/17 Signed Impressions: CONCLUSION: Ill-defined lucencies and patchy cortical thinning of multiple bones, primarily the long bones and especially the right tibia and fibula. Extensive multiple m yeloma could certainly have this appearance in the proper clinical setting. Renal Ultrasound 10/19/17 Signed Impressions: CONCLUSION: 1. Negative renal sonogram. Objective Remarks Gen: Elderly obese male lying in bed obtunded on my initial evaluation HEENT/ Neuro: RASS -5. does not follow commands. Chest/Pulm: equal chest rise. NRB initially. clear to auscultation. CVS: tachycardic, irregularly irregular, afib. GI/abdomen: soft, tender to palpation over right flank. no guarding. : Mathis in place with yellow urine in the Mathis Extremities: warm bilaterally, 1+ edema NEURO: disconjugate pupils. obtunded. A/P Assessment and Plan 82 y/o male with acute encephalopathy most likely secondary to acute seizure episode, complicated by hemorrhagic shock secondary to spontaneous psoas compartment hemorrhage from anticoagulation. critically ill. Active Problems: Acute encephalopathy New Seizure disorder Hemorrhagic Shock Anemia secondary to acute blood loss Psoas Compartment hematoma Coagulopathy secondary to heparinization (for a. fib) Plan: - reverse coagulopathy with protamine - prbc emergently - trend h&h - repeat CT abd/pelvis in 4 hours - hold anticoagulation - hold anti-hypertensives - frequent neuro checks - neuro consult - keppra load and 500mg iv q12h Will return patient's care to the hospitalist service. please re-consult as needed. Critical care time: 77 minutes, exclusive of separately billable procedures. This includes the time I spent actively transfusing for hemorrhagic shock and the time I spent accompanying the patient and managing his hemodynamics and neurologic status during the stroke alert, as well as multiple discussions with neurology and radiology colleagues and formulation of the plan. Fede Morton MD Oct 31, 2017 11:39
[2017-10-31 11:42] LABS: HEMOGLOBIN 6.2 GM/DL (13.0-17.0)
[2017-10-31] MEDS ORDERED: levETIRAcetam INJ 100 ML IV ONE (11:45)
--- NOTE | 2017-10-31 11:50 | MB ---
cc: Angel Schwarz MD, PhD DATE: 10/31/2017 REASON FOR CONSULTATION: Stroke alert. HISTORY OF PRESENT ILLNESS: Mr. Mcintosh is an 82-year-old man with renal failure and multiple myeloma. He is on IV heparin because of atrial fibrillation. This morning developed a hypotensive episode with systolic pressures in the 80s. He became unresponsive. He had a disconjugate gaze and generally weak. Therefore, a stroke alert was called. He has since improved to the level where he is more alert now back to his baseline state. He is found to be anemic. He has a hematoma on the left psoas muscle and the heparin has been held. PAST MEDICAL HISTORY: He has a history of anemia, colon cancer, renal failure, hypothyroidism, multiple myeloma. He had a recent episode where he lost consciousness after morphine thought to be possibly a seizure. At that time, he had an MRI of the brain, which was normal. He was found on MRI cervical spine to have a significant cervical stenosis, which has been evaluated by Dr. Simms of the neurosurgery service. History of atrial fibrillation. CURRENT MEDICATIONS: 1. IV heparin which is on hold. 2. Lasix 60 mg IV daily. 3. Lopressor 50 mg b.i.d. 4. Clonidine 0.1 mg q. 8 hours. 5. Albuterol nebulizer. 6. Ambien at night for sleep. 7. Metoprolol 5 mg as needed for hypertension. 8. Gentamicin with dialysis. 9. Clonidine p.r.n. NEUROLOGIC EXAMINATION: VITAL SIGNS: Blood pressure currently is 93/55, pulse is 133. HIGHER CORTICAL FUNCTION: He is alert. He follows commands. He can tell me the date. He can tell me his name and age. Cranial nerves are normal, including extraocular movements. The pupils are equal and reactive. There is no facial asymmetry. MOTOR EXAM: No gross focal deficit identified. CT of the brain is unremarkable. LABORATORY DATA: The white count is 13,000, hemoglobin 7.1, hematocrit 22.1%, platelet count 189,000. Sodium is 138, potassium 3.6, chloride 98, CO2 is 25, BUN is 46, creatinine 4.32. The GFR is 13, glucose is 138, calcium is 8.0. His APTT 47.1 on heparin, which is now on hold. Hepatitis B antigen negative. Hepatitis C antibody negative. UA from 10/24, pH is 6.5, specific gravity 1.008, protein 30, trace occult blood, 1 RBC, 1 WBC is identified, occasional amorphous sediment present. IMPRESSION: I suspect the episode he had was probably a response to hypotension, possibly a seizure induced by hypotension. There is no evidence of stroke. No focal deficits at the present time. RECOMMENDATION: The patient is not a candidate for IV tPA since this is most likely not a stroke, or TIA. Furthermore, he was anticoagulated and has anemia, which is a contraindication. For the possibility of seizure, we will start him on Keppra 500 mg IV every q. 12 hours. He did have an EEG earlier on 10/24/2017 which was consistent with an encephalopathy with generalized slowing, but I would like to repeat the EEG to be sure there is no evidence of any epileptiform activity. He had, as well, an MRI of the brain, which was normal. I do not think this needs to be repeated. He had an MRA of the brain on 10/24/2017, which was normal, and again I do not think this needs to be repeated. He had a neck MRA as well on 10/24/2017, which is within normal limits. In addition, he also had an echocardiogram earlier on 10/28/2017 showing an EF of 60-65%. LV size was normal, left ventricular systolic function was normal. There was trace tricuspid regurgitation. Right ventricle normal. Left atrial size normal. Right atrium normal. Atrial septum normal. Aortic root was normal. Mitral valve was normal. Aortic valve is normal. Tricuspid valve, trace regurgitation. Angel Schwarz MD, PhD KENAN/MILO , 11:14 AM , 11:49 AM
[2017-10-31 11:54] LABS: TROPONIN I LESS THAN 0.02 NG/ML (0.02-0.05)
[2017-10-31 12:06] LABS: FIBRINOGEN 187 mg/dL (227-377); INTERNATIONAL NORMALIZED RATIO 1.7 RATIO; PROTHROMBIN TIME - PATIENT 16.7 SEC (9.8-11.6)
[2017-10-31 12:08] LABS: HEMATOCRIT 28.3 % (39.0-51.0); HEMOGLOBIN 9.3 GM/DL (13.0-17.0)
[2017-10-31 12:12] LABS: BANDS 3 % (0-6); CORRECTED NUCLEATED RBC 3 /100 WBC (0-0); LYMPHOCYTES 9 % (9-44); METAMYELOCYTES 2 % (0-1); MONOCYTES 6 % (0-8); NEUTROPHIL # MANUAL DIFF 9.4 TH/MM3 (1.8-7.7); NUCLEATED RED BLOOD CELL 3 (0-0); POLYS (SEG NEUTROPHILS) 79 % (16-70); PROMYELOCYTES 1 % (0-0)
--- NOTE | 2017-10-31 14:09 | RADRPT ---
EXAM DATE: 10/31/2017 10:46 AM EDT AGE/SEX: 82 years / Male INDICATIONS: Abdominal pain. CLINICAL DATA: This is the patient's initial encounter. Patient reports that signs and symptoms have been present for 1 day and indicates a pain score of 5/10. MEDICAL/SURGICAL HISTORY: Cardiovascular disease. Carcinoma, colon. None. RADIATION DOSE: 16.99 CTDI (mGy) COMPARISON: No prior exams available for comparison. TECHNIQUE: Multiple contiguous axial images were obtained through the abdomen. Images were obtained using multiple row detector helical technique. Using dose reduction techniques, radiation dose was ke pt as low as reasonably achievable to obtain optimal diagnostic quality images. FINDINGS: Lower Lungs: Tiny posterior layering pleural effusions bilaterally. Bibasilar consolidation more pron ounced on the left.. Liver: The liver has a homogeneous density without space-occupying lesion. There is no dilation of th e biliary tree. The gallbladder is well distended. Multiple small calcified stones noted. No perichol ecystic fluid observed. Spleen: Homogeneous density without enlargement. Pancreas: Unremarkable without mass or calcification. Kidneys: Normal in size and shape. No evidence of mass or hydronephrosis. Adrenal Glands: Unremarkable. Aorta: The aorta and proximal iliac vessels are grossly unremarkable without aneurysmal dilation. Bowel/Mesentery: The bowel loops are grossly unremarkable. The cecum and sigmoid colon have a normal configuration. Abdominal Wall: Intact. Retroperitoneum: A right retroperitoneal hematoma is seen. This is 9.9 x 7.1 x 5.8 cm. Hounsfield un its are 69. There is also enlargement of the right psoas muscle consistent with an intramuscular comp onent. No evidence of adenopathy in the retrocrural, para-aortic, or deep pelvic regions. Bladder: Contours are smooth. Reproductive Organs: No abnormal masses or calcifications seen. Inguinal: The inguinal region is unremarkable without evidence of adenopathy. Bony Structures: A degenerative lumbar spine. Bilateral hip implants.. CONCLUSION: 1. 9.9 x 7.1 x 5.8 cm retroperitoneal hematoma on the right. This displaces the right kidney anteri garcía. 2. Tiny bilateral pleural effusions with bibasilar consolidation. 3. Cholelithiasis with a well distended gallbladder. I cannot exclude acute cholecystitis. Ultrasoun d could be utilized to further assess if needed. Electronically signed by: Mason Montes De Oca MD 10/31/2017 2:08 PM EDT
[2017-10-31] MEDS: levETIRAcetam INJ 500 MG in SODIUM CHLORIDE 0.9% INJ 100 ML IV SCH ×2 (14:26→23:45)
--- NOTE | 2017-10-31 15:41 | RADRPT ---
EXAM DATE: 10/31/2017 3:23 PM EDT AGE/SEX: 82 years / Male INDICATIONS: Reevaluate bleed CLINICAL DATA: This is the patient's subsequent encounter. Patient reports that signs and symptoms h ave been present for 1 day and indicates a pain score of 7/10. MEDICAL/SURGICAL HISTORY: Cardiovascular disease. Hypertension. Carcinoma, colon. Colon resec tion. RADIATION DOSE: 15.57 CTDI (mGy) COMPARISON: . TECHNIQUE: Multiple contiguous axial images were obtained through the abdomen. Images were obtained using multiple row detector helical technique. Using dose reduction techniques, radiation dose was ke pt as low as reasonably achievable to obtain optimal diagnostic quality images. FINDINGS: The right retroperitoneal hematoma is stable in size. It currently measures 9.3 x 6.7 x 6.2 cm. A hem atocrit level has developed within the hematoma. The right psoas muscle remains mildly enlarged but s table. No new source of hemorrhage appreciated. Small gallstones within a distended gallbladder. No gallbladder wall thickening. Bilateral pleural ef fusions and mild bibasilar consolidation is stable as well. CONCLUSION: 1. Stable right retroperitoneal hemorrhage. 2. Stable effusions and bibasilar consolidation. 3. Cholelithiasis. Although the gallbladder is well-distended I see no pericholecystic fluid or gall bladder wall thickening. If assessment of acute cholecystitis is needed I would suggest an ultrasound . Electronically signed by: Mason Montes De Oca MD 10/31/2017 3:40 PM EDT
--- NOTE | 2017-10-31 16:03 | HHI.NPPN ---
Subjective History of Present Illness The patient is an 82 yo [place] male who presented to this facility on 10/18/17 at the urge of his lab aide and PCP for anemia. He has been having some fatigue and weakness over the past few weeks and a CBC showed a Hgb of 7.2 prompting evaluation at the hospital. The patient's is the primary historian. Was admitted here in Jun for a L femur fx that he sustained at home while turning while moving TV tray causing a twist and fall type injury on his left leg. reports spiral fracture of his left femur that he underwent ORIF. He subsequently developed a DVT in the same leg. Renal functions during that admission were overall normal with SCr at 0.8 baseline. Serum calcium normal at this admission at 8.6-9.0. In August, he developed A fib with RVR and had acute renal insufficiency though nephrology services were not called as his functions improved with correction of RVR (admitting SCr 2.40 on 08/29 and discharge on 09/01 at 1.74). Noted mild hypercalcemia during this admission at 10.7. 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 Byrne, but was many years ago as per the . Says that he never underwent bone marrow bx, but had multiple labs that "didn't change" so they opted to stop following up. Given his recent anemia, his PCP did refer him to Dr. Jordyn Garcia, but appointment not until November. No known CKD hx. Denies any recent NVD No NSAID use No recent abx. Besides the aforementioned health history as of recent, he has been in his usual state of health as per his . Has been on Calcium 600mg with 500IU Vitamin D, with an additional Vitamin D3 1000IU daily since his femur fx. Admitting SCr 2.11 that has improved to 4.47 at consult. Serum CCa 12.9 at admission Interval History Apparently since yesterday the patient had an episode of hypotension with altered mental status. CT scan has subsequently revealed the presence of a retroperitoneal hematoma. Patient has been transfused. Family by bedside. Review of Systems General Constitutional: Fatigue Objective Data Data 10/31/17 11/01/17 19:00 07:00 Intake Total 1000 ml Balance 1000 ml Packed Cells 800 ml Blood Product IV Normal Saline Flush 200 ml Vital Signs Date Time Temp Pulse Resp B/P (MAP) Pulse Ox O2 Delivery O2 Flow Rate FiO2 10/31/17 12:00 98.0 116 18 126/61 (82) 98 10/31/17 12:00 128 26 98 10/31/17 12:00 134 10/31/17 12:00 98.8 102 18 126/61 (82) 98 10/31/17 11:05 16 10/31/17 10:51 95 3.00 10/31/17 10:49 94 10/31/17 10:19 94 Nasal Cannula 2.00 10/31/17 10:00 124 10/31/17 08:16 98 Nasal Cannula 4.00 10/31/17 08:00 98.8 133 18 93/55 (68) 97 10/31/17 08:00 98 10/31/17 06:00 98 10/31/17 04:00 98.8 99 18 136/75 (95) 97 10/31/17 04:00 99 10/31/17 02:00 95 10/31/17 00:00 98.7 98 20 149/75 (99) 98 10/31/17 00:00 98 10/30/17 22:00 106 10/30/17 20:01 98 Nasal Cannula 3.50 10/30/17 20:00 101 10/30/17 20:00 98.4 101 16 132/77 (95) 92 10/30/17 19:00 94 Nasal Cannula 2.00 10/30/17 18:00 89 -: 10/31/17 1145 10/31/17 0316 Physical Exam General Appearance: Well Developed, Well Nourished, No Acute Distress, Comfortable Eyes Eye Exam: Sclera White Pulmonary Resp Exam: Clear Bilaterally, Breath Sounds Equal, No Distress Cardiology CV Exam: Regular, Normal Sinus Rhythm Gastrointestinal/Abdomen GI Exam: Soft, Non-Tender Genitourinary Exam: Clear Urine Integumentary Skin Exam: Clear, Warm Extremeties Extremities Exam: Moderate Edema Neurologic Neuro Exam: Awake, Speech Clear, Moving All Extremities Assessment/Plan Discussed Condition With: Patient, Spouse Problem List: (1) Acute renal failure ICD Codes: N17.9 - Acute kidney failure, unspecified Status: Acute Plan: No indication for acute dialysis today. He will require additional ultrafiltration tomorrow however as there is still evidence of significant fluid retention and he is still oliguric. If the patient continues to remain dialysis dependent will need to consider placement of a hemodialysis PermCath to replace the Vas-Cath prior to discharge. Serum kapa chain serum level well over 1500 at 5385.6 mg/L with kapa chains evident in the urine and proteinuria consisting of 100% monoclonal protein according to lab. 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 Medications should be adjusted for the patient's renal decline. Avoid nephrotoxic agents such as iodinated contrast dyes and NSAIDs. Avoid gadolinium. (2) Hypercalcemia ICD Codes: E83.52 - Hypercalcemia Status: Acute Plan: Calcium level has improved. Likely related to a combination of dialysis and biphosphonate (3) Retroperitoneal hematoma ICD Codes: K66.1 - Hemoperitoneum Status: Acute (4) Atrial fibrillation ICD Codes: I48.91 - Unspecified atrial fibrillation Plan: Management as per primary team (5) HTN (hypertension) ICD Codes: I10 - Essential (primary) hypertension Status: Chronic Plan: Continue current regimen Given PRN Labetalol and Clonidine today. Will adjust further tomorrow if needed. Juan Ramon Carlson MD Oct 31, 2017 16:03
[2017-10-31] MEDS: DILTIAZEM HCL 60 MG TAB PO SCH ×2 (17:20→21:27)
[2017-10-31 17:44] LABS: HEMATOCRIT 28.2 % (39.0-51.0); HEMOGLOBIN 9.5 GM/DL (13.0-17.0)
--- NOTE | 2017-10-31 19:00 | EKG ---
Date Performed: 10/31/2017 Time Performed: 11:17:35 PTAGE: 82 years EKG: probable ATRIAL FIBRILLATION WITH RAPID VENTRICULAR siginificant baseline artifact percludi ng interpretation RESPONSE WITH ABERRANT CONDUCTION OR VENTRICULAR PREMATURE COMPLEXES LOW QRS VOLTAG E IN PRECORDIAL LEADS MODERATE INTRAVENTRICULAR CONDUCTION DELAY MODERATE T-WAVE ABNORMALITY, CONSIDE R INFERIOR ISCHEMIA ABNORMAL ECG consider repeat EKG PREVIOUS TRACING : 10/23/2017 21.59 DOCTOR: Natalya Taveras Interpretating Date/Time 10/31/2017 19:17:58
[2017-10-31] MEDS: CHLORHEXIDINE 0.12% (ORAL KIT) 15 ML CUP MT SCH (20:00)
[2017-10-31] MEDS ORDERED: levETIRAcetam INJ 100 ML IV SCH (21:00)
[2017-10-31] MEDS: SODIUM CHLORIDE 0.9% FLUSH 10 ML FLUSH IV FLUSH SCH (21:28)
[2017-10-31 21:30] LABS: INTERNATIONAL NORMALIZED RATIO 1.3 RATIO; PROTHROMBIN TIME - PATIENT 12.7 SEC (9.8-11.6)
[2017-11-01] VITALS (31 sets, daily range): BP systolic 79–134; BP diastolic 49–63; PULSE 100–147; RESP 17–40; TEMP 97.6–99.2; O2SAT 2–98
[2017-11-01] MEDS ORDERED: levETIRAcetam INJ 500 MG in SODIUM CHLORIDE 0.9% INJ 100 ML IV SCH ×2
[2017-11-01] MEDS: INSULIN ASPART SUPPLEMENTAL SCALE SQ SCH ×4 (02:00→19:41)
[2017-11-01] MEDS: PIPERACIL-TAZO 2.25 GM PREMIX 50 ML IV SCH ×3 (03:00→18:44)
[2017-11-01] MEDS: RESP: ALBUTEROL 2.5 MG/IPRATROPIUM 0.5 MG NEB (SCH) NEB ×6 (03:04→23:25)
[2017-11-01] MEDS: DILTIAZEM HCL 60 MG TAB PO SCH ×2 (05:42→11:00)
[2017-11-01] MEDS: hydrALAZINE HCL 25 MG TAB PO SCH ×2 (05:42→14:00)
[2017-11-01] MEDS: LEVOTHYROXINE SODIUM 75 MCG TAB PO SCH (05:42)
[2017-11-01] MEDS: CHLORHEXIDINE 0.12% (ORAL KIT) 15 ML CUP MT SCH ×2 (08:00→19:27)
--- NOTE | 2017-11-01 08:20 | HHI.PR ---
Review/Management Diagnosis No evidence of stroke on exam. Episode yesterday likely due to hypotension / encephalopathy. doubt sz Will stop keppra since EEG negative for sz focus Plan d./c keppra. Continue to hold anticoagulation due to retroperitoneal hematoma on CT Diagnosis/Plan: Subjective Subjective Comments No acute events reported Much more alert. BP has been normal Active Medications Current Medications Medications (Trade) Dose Ordered Sig/Reggie Route Start Time Stop Time Status Last Admin (NS Flush) 2 ml UNSCH PRN IV FLUSH 10/18/17 14:15 10/25/17 08:22 (NS Flush) 2 ml BID IV FLUSH 10/18/17 21:00 10/31/17 21:28 (Zofran Odt) 4 mg Q6H PRN PO 10/18/17 14:45 (Morphine Inj) 2 mg Q3H PRN IV 10/18/17 14:45 (Morphine Inj) 4 mg Q3H PRN IV 10/18/17 14:45 10/31/17 15:01 (Narcan Inj) 0.4 mg UNSCH PRN IV PUSH 10/18/17 14:15 10/24/17 06:58 (Vitamin D3) 2,000 units DAILY PO 10/19/17 09:00 10/31/17 08:51 (Synthroid) 75 mcg DAILY@0600 PO 10/19/17 06:00 11/01/17 05:42 (Theragran) 1 tab DAILY PO 10/19/17 09:00 10/31/17 08:55 (Pill Splitter) 1 ea UNSCH PRN OTHER 10/18/17 15:45 (Colace) 100 mg BID PO 10/18/17 21:00 10/31/17 21:28 (Catapres) 0.1 mg Q6H PRN PO 10/18/17 18:30 10/28/17 07:35 (Apresoline) 50 mg Q8HR PO 10/21/17 22:00 11/01/17 05:42 [place] [place] Patient in critical care unit? Ass... Q361D .XX 10/23/17 23:00 10/23/17 23:00 (Peridex 0.12% Liq) 15 ml BID@08,20 MT 10/24/17 20:00 10/31/17 20:00 (Pepcid) 10 mg BID PO 10/24/17 11:00 Future Hold 10/24/17 12:19 Heparin Sodium/ Dextrose 250 ml @ 18 mls/hr TITRATE PRN IV 10/24/17 17:45 Future hold 10/30/17 17:04 (Albuterol Neb) 2.5 mg Q2HR NEB PRN NEB 10/24/17 22:00 Piperacillin Sod/ Tazobactam Sod 50 ml @ 100 mls/hr Q8H IV 10/25/17 18:00 11/01/17 03:00 (Protonix Inj) 40 mg Q12H IV PUSH 10/25/17 21:00 10/31/17 21:28 (Cardizem) 60 mg Q6HR OG-TUBE 10/25/17 12:00 Future Hold 10/31/17 01:12 (D50w (Vial) Inj) 50 ml UNSCH PRN IV PUSH 10/26/17 07:30 (Glucagon Inj) 1 mg UNSCH PRN OTHER 10/26/17 07:30 (NovoLOG SUPPLEMENTAL SCALE) 1 Q6H SQ 10/26/17 08:00 10/30/17 20:34 Sodium Chloride 1,000 ml @ 0 mls/hr Q0M PRN OTHER 10/26/17 12:43 Future Hold 10/30/17 16:00 (Heparin Inj) 8,000 units UNSCH PRN IV FLUSH 10/26/17 12:45 Future Hold Sodium Chloride 1,000 ml @ 200 mls/hr Q5H PRN IV 10/26/17 12:43 Future Hold Sodium Chloride 1,000 ml @ 0 mls/hr Q0M PRN OTHER 10/26/17 12:43 Future Hold Albumin Human 100 ml @ 60 mls/hr UNSCH PRN IV 10/26/17 12:45 Future Hold 10/26/17 16:00 (NS Flush) 5 ml UNSCH PRN IV FLUSH 10/26/17 12:45 Future Hold (Heparin Inj) UNSCH PRN .XX 10/26/17 12:45 Future Hold 10/30/17 16:00 (Gentamicin Inj) 20 mg UNSCH PRN OTHER 10/26/17 12:45 Future Hold 10/30/17 16:00 (Benadryl) 25 mg UNSCH PRN PO 10/26/17 12:45 Future Hold 10/28/17 02:30 (Nitrostat Sl) 0.4 mg UNSCH PRN SL 10/26/17 12:45 Future Hold (Catapres) 0.1 mg UNSCH PRN PO 10/26/17 12:45 Future Hold (Gelfoam 12 Mm/7 Mm Top) 1 foam UNSCH PRN TOP 10/26/17 12:45 (Lopressor Inj) 5 mg Q6H PRN IV PUSH 10/28/17 02:15 Future Hold 10/29/17 00:47 (Lopressor Inj) 5 mg Q5M PRN IV PUSH 10/28/17 05:15 Future Hold 10/30/17 21:06 (Lopressor) 50 mg BID PO 10/29/17 09:00 Future Hold 10/31/17 08:55 (Duoneb Neb) 1 ampule Q4HR NEB NEB 10/29/17 12:00 11/01/17 03:04 (Duoneb Neb) 1 ampule Q2HR NEB PRN NEB 10/29/17 09:00 (Catapres) 0.1 mg Q8HR PO 10/29/17 09:00 Future Hold 10/30/17 20:35 (Lasix Inj) 60 mg DAILY IV PUSH 10/31/17 09:00 Future Hold 10/31/17 08:55 Levetriacetam 500 mg/Sodium Chloride 105 ml @ 420 mls/hr Q12H IV 10/31/17 12:00 10/31/17 23:45 (Cardizem) 60 mg Q6H PO 10/31/17 17:00 11/01/17 05:42 Allergies Allergies Coded Allergies No Known Allergies (Verified Allergy, Unknown, 06/24/17) Review of Systems All other ROS: Unable to obtain Exam I&O / VS Vital Signs Date Time Temp Pulse Resp B/P (MAP) Pulse Ox O2 Delivery O2 Flow Rate FiO2 11/01/17 07:00 95 Nasal Cannula 4.00 11/01/17 06:00 127 11/01/17 04:00 97.6 103 17 97/54 (68) 97 11/01/17 04:00 103 11/01/17 02:00 101 11/01/17 00:00 101 11/01/17 00:00 98.2 101 30 115/63 (80) 95 10/31/17 22:00 104 10/31/17 20:01 Nasal Cannula 4.00 10/31/17 20:00 97.3 114 26 109/68 (82) 95 10/31/17 20:00 114 10/31/17 19:00 99 Nasal Cannula 2.00 10/31/17 18:00 134 10/31/17 17:40 98.8 140 18 121/73 (89) 98 10/31/17 16:00 98.8 140 18 121/73 (89) 98 10/31/17 16:00 134 10/31/17 14:00 134 10/31/17 12:00 98.0 116 18 126/61 (82) 98 10/31/17 12:00 128 26 98 10/31/17 12:00 134 10/31/17 12:00 98.8 102 18 126/61 (82) 98 10/31/17 11:05 16 10/31/17 10:51 95 3.00 10/31/17 10:49 94 10/31/17 10:19 94 Nasal Cannula 2.00 10/31/17 10:00 124 Exam Comments alert, speech normal. follow commands CN intact Motor--5/5 BUE Objective Micro and Labs Laboratory Tests Test 10/31/17 09:09 10/31/17 10:08 10/31/17 11:17 10/31/17 11:45 White Blood Count 13.0 11.1 Red Blood Count 2.54 2.16 Hemoglobin 7.1 6.2 9.3 Hematocrit 22.1 19.0 28.3 Mean Corpuscular Volume 87.1 88.0 Mean Corpuscular Hemoglobin 28.2 28.7 Mean Corpuscular Hemoglobin Concent 32.3 32.6 Red Cell Distribution Width 19.0 17.8 Platelet Count 189 168 Mean Platelet Volume 8.1 8.4 Neutrophils (%) (Auto) 86.2 85.8 Lymphocytes (%) (Auto) 5.6 6.8 Monocytes (%) (Auto) 8.1 7.3 Eosinophils (%) (Auto) 0.0 0.0 Basophils (%) (Auto) 0.1 0.1 Neutrophils # (Auto) 11.2 9.5 Lymphocytes # (Auto) 0.7 0.8 Monocytes # (Auto) 1.1 0.8 Eosinophils # (Auto) 0.0 0.0 Basophils # (Auto) 0.0 0.0 CBC Comment AUTO DIFF AUTO DIFF Differential Total Cells Counted 100 100 Neutrophils % (Manual) 86 79 Band Neutrophils % 6 3 Lymphocytes % 4 9 Monocytes % 4 6 Neutrophils # (Manual) 12.0 9.4 Nucleated Red Blood Cells 1 3 Differential Comment FINAL DIFF MANUAL FINAL DIFF MANUAL Toxic Granulation 1+ Platelet Estimate NORMAL NORMAL Platelet Morphology Comment NORMAL NORMAL Ovalocytes 1+ Acanthocytes OCC Blood Gas Puncture Site LT RADIAL Blood Gas Patient Temperature 98.6 Blood Gas HCO3 28 Blood Gas Base Excess 4.6 Blood Gas Oxygen Saturation 95 Arterial Blood pH 7.51 Arterial Blood Partial Pressure CO2 35 Arterial Blood Partial Pressure O2 95 Arterial Blood Oxygen Content 8.9 Arterial Blood Carboxyhemoglobin 0.8 Arterial Blood Methemoglobin 1.6 Blood Gas Hemoglobin 6.5 Oxygen Delivery Device NASAL CANNULA Blood Gas Liter Flow 3 Bedside Hemoglobin 6.1 Bedside Hematocrit 18.0 Metamyelocytes 2 Promyelocytes 1 Prothrombin Time 16.7 Prothromb Time International Ratio 1.7 Activated Partial Thromboplast Time GREATER THAN 277.5 Fibrinogen 187 Bedside Sodium 138 Bedside Potassium 3.7 Bedside Chloride 98 Bedside Blood Urea Nitrogen 50 Bedside Creatinine 5.1 Bedside Glucose 156 Lactic Acid Level 4.3 Total Creatine Kinase 218 Troponin I LESS THAN 0.02 Test 10/31/17 17:27 10/31/17 20:45 Hemoglobin 9.5 Hematocrit 28.2 Prothrombin Time 12.7 Prothromb Time International Ratio 1.3 Activated Partial Thromboplast Time 19.1 Date/Time Source Procedure Growth Status 10/24/17 13:55 Blood Peripheral Aerobic Blood Culture - Final NO GROWTH IN 5 DAYS Complete 10/24/17 13:55 Blood Peripheral Anaerobic Blood Culture - Final NO GROWTH IN 5 DAYS Complete 10/19/17 12:30 Stool Stool Stool Occult Blood (NAOMI) - Final HEMOCCULT NEGATIVE Complete 10/24/17 09:11 Sputum Endotracheal Gram Stain - Final Complete 10/24/17 09:11 Sputum Endotracheal Sputum Culture - Final HEAVY GROWTH NORMAL RESPIRATORY JANENE Complete 10/24/17 09:00 Urine Catheterized Urine Urine Culture - Final NO GROWTH IN 48 HOURS. Complete Diagnostic Tests I reviewed EEG from yesterday and did not see any epileptiform discharges. Official reading is pending Angel Schwarz MD PhD Nov 01, 2017 08:20
--- NOTE | 2017-11-01 08:53 | MG ---
cc: Colby León MD EEG RECORD NUMBER: [id number] 4-5 Hz activity with occasional 1-2 Hz delta, 10-30 microvolts of the frontal myogenic artifact, rest frequency artifact. Minimal driving with photic stimulation. EEG variability reactivity noted. Single EKG showing sinus tachycardia. INTERPRETATION: Mild encephalopathy and possible sleep state. Good EEG variability and reactivity. Clinical correlation advised. Colby León MD MG/DL , 08:42 AM , 08:52 AM
[2017-11-01] MEDS: CHOLECALCIFEROL (VIT D3) 1000 UNIT TAB PO SCH (09:06)
[2017-11-01] MEDS: DOCUSATE SODIUM 100 MG CAP PO SCH ×2 (09:07→19:27)
[2017-11-01] MEDS: MULTIVITAMIN TAB PO SCH (09:08)
[2017-11-01] MEDS: SODIUM CHLORIDE 0.9% FLUSH 10 ML FLUSH IV FLUSH SCH ×2 (09:08→19:26)
[2017-11-01] MEDS: PANTOPRAZOLE SODIUM 40 MG VIAL IV PUSH SCH ×2 (09:08→19:26)
[2017-11-01 11:56] LABS: AUTOMATED NEUTROPHIL # 12.7 TH/MM3 (1.8-7.7); BASOPHIL % 0.1 % (0.0-2.0); EOSINOPHIL % 0.1 % (0.0-4.0); HEMATOCRIT 22.5 % (39.0-51.0); HEMOGLOBIN 7.4 GM/DL (13.0-17.0); LYMPH % 4.5 % (9.0-44.0); LYMPHOCYTE # 0.6 TH/MM3 (1.0-4.8); MEAN CELL VOLUME 84.3 FL (80.0-100.0); MEAN CORPUSCULAR HEMOGLOBIN 27.9 PG (27.0-34.0); MEAN CORPUSCULAR HGB CONC 33.1 % (32.0-36.0); MEAN PLATELET VOLUME 8.3 FL (7.0-11.0); MONO % 4.9 % (0.0-8.0); MONOCYTE # 0.7 TH/MM3 (0-0.9); NEUT % 90.4 % (16.0-70.0); PLATELET COUNT 143 TH/MM3 (150-450); RED BLOOD COUNT 2.67 MIL/MM3 (4.50-5.90); RED CELL DISTRIBUTION WIDTH 16.6 % (11.6-17.2); WHITE BLOOD COUNT 14.1 TH/MM3 (4.0-11.0)
[2017-11-01 13:00] LABS: CORRECTED NUCLEATED RBC 2 /100 WBC (0-0); LYMPHOCYTES 7 % (9-44); METAMYELOCYTES 1 % (0-1); MONOCYTES 3 % (0-8); NEUTROPHIL # MANUAL DIFF 12.7 TH/MM3 (1.8-7.7); NUCLEATED RED BLOOD CELL 2 (0-0); POLYS (SEG NEUTROPHILS) 89 % (16-70)
[2017-11-01 13:26] LABS: ALBUMIN 2.9 GM/DL (3.4-5.0); BICARBONATE 22.9 MEQ/L (21.0-32.0); CALCIUM 7.1 MG/DL (8.5-10.1); CALCIUM-PROTEIN CORRECTED 7.9 MG/DL (8.5-10.1); CREATININE 5.65 MG/DL (0.60-1.30); TOTAL BILIRUBIN ADULT 0.6 MG/DL (0.2-1.0); TOTAL PROTEIN 5.6 GM/DL (6.4-8.2)
[2017-11-01] MEDS ORDERED: SODIUM CHLOR 0.9% 250 ML INJ 250 ML IV ONE (14:15)
--- NOTE | 2017-11-01 14:17 | PD.ONC.PN ---
Subjective Subjective Remarks Afebrile overnight. Patient resting in bed. receiving dialysis. states the dialysis is making him feel cold. otherwise feeling better today. per nurse, he has been tachycardic this AM and his blood pressure has been hovering around 99/50. Objective Data Date Time Temp Pulse Resp B/P (MAP) Pulse Ox O2 Delivery O2 Flow Rate FiO2 11/01/17 13:15 144 32 91/52 (65) 93 11/01/17 13:00 97.7 144 33 86/52 (63) 93 11/01/17 12:45 144 34 86/51 (63) 93 11/01/17 12:30 144 33 86/52 (63) 93 11/01/17 12:15 145 35 89/52 (64) 92 11/01/17 12:00 145 35 86/54 (65) 91 11/01/17 12:00 145 11/01/17 11:45 146 31 84/52 (63) 91 11/01/17 11:33 147 30 79/50 (60) 93 11/01/17 11:30 146 30 80/50 (60) 93 11/01/17 11:15 137 27 117/58 (77) 93 11/01/17 11:00 115 25 121/59 (79) 93 11/01/17 10:20 92 Nasal Cannula 2.00 11/01/17 10:00 100 11/01/17 10:00 126 34 104/55 (71) 91 11/01/17 08:00 132 23 129/60 (83) 91 11/01/17 08:00 138 11/01/17 07:00 97.7 103 22 115/59 (77) 98 11/01/17 07:00 95 Nasal Cannula 4.00 11/01/17 06:00 127 11/01/17 04:00 97.6 103 17 97/54 (68) 97 11/01/17 04:00 103 11/01/17 02:00 101 11/01/17 00:00 101 11/01/17 00:00 98.2 101 30 115/63 (80) 95 10/31/17 22:00 104 10/31/17 20:01 Nasal Cannula 4.00 10/31/17 20:00 97.3 114 26 109/68 (82) 95 10/31/17 20:00 114 10/31/17 19:00 99 Nasal Cannula 2.00 10/31/17 18:00 134 10/31/17 17:40 98.8 140 18 121/73 (89) 98 10/31/17 16:00 98.8 140 18 121/73 (89) 98 10/31/17 16:00 134 11/01/17 11/01/17 11/01/17 07:00 15:00 23:00 Intake Total 155 ml Output Total 25 ml Balance 130 ml Result Diagram: 11/01/17 1100 11/01/17 1100 Laboratory Results Laboratory Tests Test 10/31/17 17:27 10/31/17 20:45 11/01/17 11:00 Hemoglobin 9.5 GM/DL 7.4 GM/DL Hematocrit 28.2 % 22.5 % Prothrombin Time 12.7 SEC Prothromb Time International Ratio 1.3 RATIO Activated Partial Thromboplast Time 19.1 SEC White Blood Count 14.1 TH/MM3 Red Blood Count 2.67 MIL/MM3 Mean Corpuscular Volume 84.3 FL Mean Corpuscular Hemoglobin 27.9 PG Mean Corpuscular Hemoglobin Concent 33.1 % Red Cell Distribution Width 16.6 % Platelet Count 143 TH/MM3 Mean Platelet Volume 8.3 FL Neutrophils (%) (Auto) 90.4 % Lymphocytes (%) (Auto) 4.5 % Monocytes (%) (Auto) 4.9 % Eosinophils (%) (Auto) 0.1 % Basophils (%) (Auto) 0.1 % Neutrophils # (Auto) 12.7 TH/MM3 Lymphocytes # (Auto) 0.6 TH/MM3 Monocytes # (Auto) 0.7 TH/MM3 Eosinophils # (Auto) 0.0 TH/MM3 Basophils # (Auto) 0.0 TH/MM3 CBC Comment AUTO DIFF Differential Total Cells Counted 100 Neutrophils % (Manual) 89 % Lymphocytes % 7 % Monocytes % 3 % Neutrophils # (Manual) 12.7 TH/MM3 Metamyelocytes 1 % Nucleated Red Blood Cells 2 /100 WBC Differential Comment FINAL DIFF MANUAL Platelet Estimate LOW Platelet Morphology Comment NORMAL Basophilic Stippling FAINT Blood Urea Nitrogen 65 MG/DL Creatinine 5.65 MG/DL Random Glucose 95 MG/DL Total Protein 5.6 GM/DL Albumin 2.9 GM/DL Calcium Level 7.1 MG/DL Alkaline Phosphatase 58 U/L Aspartate Amino Transf (AST/SGOT) 62 U/L Alanine Aminotransferase (ALT/SGPT) 178 U/L Total Bilirubin 0.6 MG/DL Sodium Level 140 MEQ/L Potassium Level 3.9 MEQ/L Chloride Level 100 MEQ/L Carbon Dioxide Level 22.9 MEQ/L Anion Gap 17 MEQ/L Estimat Glomerular Filtration Rate 10 ML/MIN Protein Corrected Calcium 7.9 MG/DL Imaging Studies Last 24 hours Impressions Abdomen/Pelvis CT 10/31/17 1500 Signed Impressions: CONCLUSION: 1. Stable right retroperitoneal hemorrhage. 2. Stable effusions and bibasilar consolidation. 3. Cholelithiasis. Although the gallbladder is well-distended I see no pericho lecystic fluid or gallbladder wall thickening. If assessment of acute cholecyst itis is needed I would suggest an ultrasound. Administered Medications Medications (Trade) Dose Ordered Sig/Reggie Route PRN Reason Start Time Stop Time Status Last Admin Dose Admin Sodium Chloride (NS Flush) 2 ml UNSCH PRN IV FLUSH FLUSH AFTER USING IV ACCESS 10/18/17 14:15 10/25/17 08:22 Sodium Chloride (NS Flush) 2 ml BID IV FLUSH 10/18/17 21:00 11/01/17 09:08 Morphine Sulfate (Morphine Inj) 4 mg Q3H PRN IV Pain 6-10;if unable to take PO 10/18/17 14:45 10/31/17 15:01 Naloxone HCl (Narcan Inj) 0.4 mg UNSCH PRN IV PUSH SEE LABEL COMMENTS 10/18/17 14:15 10/24/17 06:58 Cholecalciferol (Vitamin D3) 2,000 units DAILY PO 10/19/17 09:00 11/01/17 09:06 Levothyroxine Sodium (Synthroid) 75 mcg DAILY@0600 PO 10/19/17 06:00 11/01/17 05:42 Multivitamins (Theragran) 1 tab DAILY PO 10/19/17 09:00 11/01/17 09:08 Docusate Sodium (Colace) 100 mg BID PO 10/18/17 21:00 11/01/17 09:07 Clonidine (Catapres) 0.1 mg Q6H PRN PO SBP>160, DBP>90 10/18/17 18:30 10/28/17 07:35 Hydralazine HCl (Apresoline) 50 mg Q8HR PO 10/21/17 22:00 11/01/17 05:42 Miscellaneous Information ([facility] Information) Patient in critical care unit? Ass... [id number] .XX 10/23/17 23:00 10/23/17 23:00 Chlorhexidine Gluconate (Peridex 0.12% Liq) 15 ml BID@08,20 MT 10/24/17 20:00 11/01/17 08:00 Famotidine (Pepcid) 10 mg BID PO 10/24/17 11:00 Future Hold 10/24/17 12:19 Heparin Sodium/ Dextrose 250 ml @ 18 mls/hr TITRATE PRN IV Coagulation Management 10/24/17 17:45 Future hold 10/30/17 17:04 Piperacillin Sod/ Tazobactam Sod 50 ml @ 100 mls/hr Q8H IV 10/25/17 18:00 11/01/17 03:00 Pantoprazole Sodium (Protonix Inj) 40 mg Q12H IV PUSH 10/25/17 21:00 11/01/17 09:08 Diltiazem HCl (Cardizem) 60 mg Q6HR OG-TUBE 10/25/17 12:00 Future Hold 10/31/17 01:12 Insulin Aspart (NovoLOG SUPPLEMENTAL SCALE) 1 Q6H SQ 10/26/17 08:00 10/30/17 20:34 Sodium Chloride 1,000 ml @ 0 mls/hr Q0M PRN OTHER For Prime & Rinse Back 10/26/17 12:43 Future Hold 10/30/17 16:00 Albumin Human 100 ml @ 60 mls/hr UNSCH PRN IV WITH DIALYSIS 10/26/17 12:45 Future Hold 10/26/17 16:00 Heparin Sodium (Porcine) (Heparin Inj) UNSCH PRN .XX WITH DIALYSIS 10/26/17 12:45 Future Hold 10/30/17 16:00 Gentamicin Sulfate (Gentamicin Inj) 20 mg UNSCH PRN OTHER WITH DIALYSIS 10/26/17 12:45 Future Hold 10/30/17 16:00 Diphenhydramine HCl (Benadryl) 25 mg UNSCH PRN PO for hives/itching/anaphylaxis 10/26/17 12:45 Future Hold 10/28/17 02:30 Metoprolol Tartrate (Lopressor Inj) 5 mg Q6H PRN IV PUSH HR > 100 10/28/17 02:15 Future Hold 10/29/17 00:47 Metoprolol Tartrate (Lopressor Inj) 5 mg Q5M PRN IV PUSH HR>100 10/28/17 05:15 Future Hold 10/30/17 21:06 Metoprolol Tartrate (Lopressor) 50 mg BID PO 10/29/17 09:00 Future Hold 10/31/17 08:55 Albuterol/ Ipratropium (Duoneb Neb) 1 ampule Q4HR NEB NEB 10/29/17 12:00 11/01/17 12:48 Clonidine (Catapres) 0.1 mg Q8HR PO 10/29/17 09:00 Future Hold 10/30/17 20:35 Furosemide (Lasix Inj) 60 mg DAILY IV PUSH 10/31/17 09:00 Future Hold 10/31/17 08:55 Diltiazem HCl (Cardizem) 60 mg Q6H PO 10/31/17 17:00 11/01/17 05:42 Objective Remarks GENERAL: Elderly male, sitting up in bed, receiving dialysis. SKIN: Warm and dry. HEAD: Normocephalic. EYES: No injection or drainage. NECK: Supple, trachea midline. CARDIOVASCULAR: tachycardic rate, regular rhythm. RESPIRATORY: scattered rhonchi anterior gutierrez. GASTROINTESTINAL: Abdomen soft, non-tender, nondistended. EXTREMITIES: No cyanosis NEUROLOGICAL: awake and alert. normal speech. Assessment/Plan Assessment 82y/o male with anemia, hypercalcemia, and acute renal failure. h/o MGUS, hypertension, chronic kidney disease, hypothyroidism, colon cancer, anemia. Plan 1. IgG kappa Multiple Myeloma with Bone marrow involvement and skeletal mets, Anemia, hypercalcemia, and ARF, --skeletal survey indicating ill defined lesions that may be consistent with myeloma. --urine protein=~3g --[id number]; free kappa light chains =5K --abnormal discrete band in gamma region noted. --s/p Aredia 60mg on 10/2310/25/17: await bone marrow biopsy results. discussed with at bedside. will give 1 unit pRBC for hgb 7.2. start decadron 10mg IV daily 10/26/17: continue Decadron 10mg IV. may consider increasing to 40mg tomorrow after first dialysis. 10/27/17: increase Decadron to 40mg Discussed diagnosis with patient Will consider initiating treatment with Velcade agree with dialysis 10/29: reviewed bone marrow biopsy results with . discussed continuing decadron. monitor renal function, electrolytes, CBC 10/30: last day of Decadron today. will consider starting Velcade tomorrow. monitor CBC, renal function 10/31: will wait until acute events have stabilized before considering further treatment 11/01: plan to start velcade next week after stabilized. 2. Atrial fibrillation and history of left lower extremity deep venous thrombosis. off ac d/t retroperitoneal hematoma. 3. renal failure: started dialysis on 10/26. management per nephrology. 4. altered mental status --unclear etiology, discussed with Dr. Santoyo immediately after my exam who will come to see the patient directly. 5. retroperitoneal hematoma --heparin stopped. --monitor serial H/H --transfuse as needed. 6. Anemia: --will transfuse 1 unit pRBC today and then recheck H/H later today. Skylar Sanchez Nov 01, 2017 14:17
--- NOTE | 2017-11-01 14:46 | HHI.PR ---
Subjective Remarks I came to see patient today blood pressure is very low systolic in the 80s Hemoglobin dropped 2 g from 9.5-7.5 Patient told me he feels frozen Started to be tachycardic in the 140s Objective Vitals Vital Signs Date Time Temp Pulse Resp B/P (MAP) Pulse Ox O2 Delivery O2 Flow Rate FiO2 11/01/17 13:15 144 32 91/52 (65) 93 11/01/17 13:00 97.7 144 33 86/52 (63) 93 11/01/17 12:45 144 34 86/51 (63) 93 11/01/17 12:30 144 33 86/52 (63) 93 11/01/17 12:15 145 35 89/52 (64) 92 11/01/17 12:00 145 35 86/54 (65) 91 11/01/17 12:00 145 11/01/17 11:45 146 31 84/52 (63) 91 11/01/17 11:33 147 30 79/50 (60) 93 11/01/17 11:30 146 30 80/50 (60) 93 11/01/17 11:15 137 27 117/58 (77) 93 11/01/17 11:00 115 25 121/59 (79) 93 11/01/17 10:20 92 Nasal Cannula 2.00 11/01/17 10:00 100 11/01/17 10:00 126 34 104/55 (71) 91 11/01/17 08:00 132 23 129/60 (83) 91 11/01/17 08:00 138 11/01/17 07:00 97.7 103 22 115/59 (77) 98 11/01/17 07:00 95 Nasal Cannula 4.00 11/01/17 06:00 127 11/01/17 04:00 97.6 103 17 97/54 (68) 97 11/01/17 04:00 103 11/01/17 02:00 101 11/01/17 00:00 101 11/01/17 00:00 98.2 101 30 115/63 (80) 95 10/31/17 22:00 104 10/31/17 20:01 Nasal Cannula 4.00 10/31/17 20:00 97.3 114 26 109/68 (82) 95 10/31/17 20:00 114 10/31/17 19:00 99 Nasal Cannula 2.00 10/31/17 18:00 134 10/31/17 17:40 98.8 140 18 121/73 (89) 98 10/31/17 16:00 98.8 140 18 121/73 (89) 98 10/31/17 16:00 134 I/O 10/31/17 10/31/17 10/31/17 11/01/17 11/01/17 11/01/17 07:00 15:00 23:00 07:00 15:00 23:00 Intake Total 60 ml 1000 ml 1905 ml 155 ml 30 ml Output Total 150 ml 20 ml 25 ml Balance -90 ml 1000 ml 1885 ml 130 ml 30 ml Intake Oral 60 ml 150 ml IV Total 1155 ml 155 ml Packed Cells 800 ml FFP 600 ml Blood Product IV Normal Saline Flush 200 ml 30 ml Output Urine Total 150 ml 20 ml 25 ml # Bowel Movements 1 1 0 Result Diagram: 11/01/17 1100 11/01/17 1100 Objective Remarks GENERAL: Patient resting in bed looks clammy feels cold CARDIOVASCULAR: Irregularly irregular, RESPIRATORY: Relatively diminished breath sounds bilaterally GASTROINTESTINAL: Abdomen soft, non-tender, nondistended. Positive bowel sounds MUSCULOSKELETAL: Extremities without clubbing, cyanosis, or edema. Pedal pulses appreciated NEUROLOGICAL: Awake alert answering simple questions A/P Problem List: (1) Acute renal failure ICD Code: N17.9 - Acute kidney failure, unspecified Status: Acute (2) Hypercalcemia ICD Code: E83.52 - Hypercalcemia Status: Acute (3) Symptomatic anemia ICD Code: D64.9 - Anemia, unspecified Status: Acute (4) Left leg DVT ICD Code: I82.402 - Acute embolism and thrombosis of unspecified deep veins of left lower extremity Status: Chronic (5) Type 2 diabetes mellitus ICD Code: E11.9 - Type 2 diabetes mellitus without complications Status: Acute (6) HTN (hypertension) ICD Code: I10 - Essential (primary) hypertension Status: Chronic Assessment and Plan 10/23: Mr. Mcintosh is an 82-year-old male. He came in the hospital secondary to progressive anemia. Hemoglobin today is 6.9. He has a past history of bleed which was not found to be GI related. Additional findings today are acute renal failure and hypercalcemia. He recalls that he might have had some kidney disease in the past but cannot specify. Looking in our past records his highest creatinine value have been 3.5 but currently his creatinine levels at 5.11. She does not report being dehydrated. He has had a fracture approximately 3 months ago and has been on bedrest until recently for this. Additionally he is on Eliquis. Eliquis combined with his renal condition may be contributory to blood loss. Renal dysfunction can also be contributory to his hypercalcemia. Shortness of breath and weakness have been his primary complaints. Patient underwent bone marrow biopsy by interventional radiology on 10/23. Around 9 PM patient developed altered mental status with speech difficulty and questionable left-sided facial weakness. Stroke alert was called. Head CT done during stroke alert was negative for bleed. Dr. Saunders from neurology was contacted. Patient's blood pressure at that time was 218 systolic. She ordered a nicardipine drip and transferred patient to ICU with critical care consult. I evaluated patient following his arrival to the ICU. At that time patient appeared comfortable not in any acute distress. He was moving all 4 extremities at the time and was completely awake and alert and oriented. He did have some tremors in bilateral upper extremities however stated that he was feeling cold and shivering. 10/24: Patient did take his aspirin after talking to his last night. He did receive 0.5 mg Ativan last night for agitation and morphine around 4 AM for pain and subsequently this morning was noted to be lethargic. His O2 sats dropped and he was placed on nonrebreather facemask. His sats improved with IV Narcan however he was also getting hypothermic and bradycardic. I spoke with patient's at bedside as patient did not appear to be protecting his airway. I proceeded with endotracheal intubation and patient was placed on mechanical ventilation. He is awaiting MRI brain. 10/25 MRI brain negative. On propofol, performing sedation vacation and will proceed with SBT and extubate if able. Oliguric overnight, UOP only 50 mL over the security shift manager. Creatinine 4.87. Initiating diuretic, discussed with Dr. Carlson. Transfusing 1 unit PRBC for Hgb 7.2 per hematology. On heparin drip. 10/26 Pathology now indicating MM. Was started on decadron yesterday by hematology. Was slow to wake up off propofol but was following commands yesterday evening on precedex drip. Propofol resumed overnight in view of some agitation and hypertension.. Would plan for CPAP trial and possible extubation today but will hold off on extubation for now as he may require Vascath placement for dialysis start. Will defer to nephrology, however creatinine continues uptrend and he is oliguric despite diuretic. 10/27 HD started yesterday. CPAP trial today and will extubate as tolerated. UOP 400 last 24 hours with diuretic. 10/28 Patient was extubated yesterday on 5L oxygen. s/p HD 10/27 with removal 2.5L 10/29 Patient s/p HD 10/28 with removal 3L. Received Restoril and Haldol overnight for agitation. Afebrile. 10/30: Plan for l last day of Decadron today, plan to start chemotherapy tomorrow IgG kappa with multiple myeloma with bone marrow involvement and skeletal lesion, appreciate hematology oncology follow-up, Repeat CBC BMP in a.m., monitor temperature, blood pressure Discussed with and patient 10/31: Patient was diaphoretic and started becoming lucid to the assistant professor of education VALERI, when I came to the room he was unresponsive, rapid response was started as mentioned above, stroke alert was called due to concern about sudden unresponsiveness and fixed left pupil, currently CT abdomen and CT head pending ABGs came with pH 7.51 PCO2 for 35 PO2 95 bicarb is 28. Earlier this morning creatinine was 4.32, we will transfer care to intensive care service, discussed in length with Dr. Montes De Oca critical care time 45 minute 11/01: pt today still to be diaphoretic he is status post 2 units PRBC transfusion yesterday, hemoglobin dropped again 2 g almost from 9.5-7.4 He looks clammy feels very cold, he is tachycardic in the 140-150, hypotensive, patient can go into severe hypovolemic shock most likely retroperitoneal hematoma is bleeding again, I consulted general surgery staff and discussed with Dr. Velazquez he graciously will see the patient, will order H&H regularly every 6 hours, 2 units of PRBC crossmatched and transfused, I consulted manager of case and discussed with Dr. Leon who graciously accepted the patient for closer monitoring in ICU, watching out for the intra-abdominal bleeding A/P: 82 y/o male with Acute Encephalopathy Hypothermia Uncontrolled hypertension History of atrial fibrillation anemia hypercalcemia acute renal failure. h/o MGUS now appears Multiple Myeloma chronic kidney disease hypothyroidism h/o colon cancer A/P: Acute encephalopathy Monitor neuro status -Aspirin 81 mg p.o. daily. -Continue anticoagulation with heparin drip. -MRA brain/ neck - no abnormality -MRI brain negative -MRI Cspine with degeneration C3/4 and C4/[address] León consulted NSG. - PT consulted -ammonia level normal. Cardiovascular: HTN AFIB On Cardizem 60 mg q6 hours, increase metoprolol 50 mg p.o. twice daily, add Clonidine 0.1mg Q8 Hydralazine 50 every 8 hours per nephrology, Monitor HR and BP keep MAP>65mmHg Echo showed EF 60-65%, normal LV diastolic function . Pulmonary: Acute hypercapnic respiratory failure suspected NANCY. - Continue with oxygen keep sats >92% Bronchodilators NIPPV PRN for resp distress GI/liver: Esophagitis History of colon cancer -On PO diet EGD 10/24LA class C esophagitis with NG trauma. Normal mucosa of stomach, duodenum. Continue PPI per GI recommendation Renal/: ZOFIA overlying CKD Light chain cast nephropathy Hypercalcemia , resolved -Received pamidronate for hypercalcemia per nephrology on 10/23. -R IJ vascath placed 10/26 and started on HD. s/p HD 10/28 with removal 3L -Nephrology following. Dr. Carlson [facility]: Plasma cell myeloma Chronic anticoagulation due to history of atrial fibrillation and lower extremity DVT -Being followed by oncology. Had known MGUS. - bone marrow biopsy 10/23 c/w myeloma -Decadron started 10/25 , 40 mg IV daily per hematology. -Continue anticoagulation in view of history of A. fib , LE DVT -Transfused 1 unit packed red cells 10/25. -Started on aspirin 10/23 ID: -Pancultured ( Blood, sputum, Urine ) 10/24: NGTD Continue with abx ( Zosyn)monitor for signs of infections ( Fever, WBC) Microbiology: 10/24urine culture negative 10/24 sputum culture negative. 10/24 blood culture no growth to date Hypothyroidism Continue Synthroid 75 mg p.o. daily Monitor glucose while on Decadron , on SSI fo glycemic control TSH normal 10/19 Prophylaxis: SCDs. Heparin drip as per above. PPI Young Santoyo MD Nov 01, 2017 14:46
--- NOTE | 2017-11-01 15:27 | HHI.CCPN ---
Subjective Remarks/Hospital Course 10/23: Mr. Mcintosh is an 82-year-old male. He came in the hospital secondary to progressive anemia. Hemoglobin today is 6.9. He has a past history of bleed which was not found to be GI related. Additional findings today are acute renal failure and hypercalcemia. He recalls that he might have had some kidney disease in the past but cannot specify. Looking in our past records his highest creatinine value have been 3.5 but currently his creatinine levels at 5.11. She does not report being dehydrated. He has had a fracture approximately 3 months ago and has been on bedrest until recently for this. Additionally he is on Eliquis. Eliquis combined with his renal condition may be contributory to blood loss. Renal dysfunction can also be contributory to his hypercalcemia. Shortness of breath and weakness have been his primary complaints. Patient underwent bone marrow biopsy by interventional radiology on 10/23. Around 9 PM patient developed altered mental status with speech difficulty and questionable left-sided facial weakness. Stroke alert was called. Head CT done during stroke alert was negative for bleed. Dr. Saunders from neurology was contacted. Patient's blood pressure at that time was 218 systolic. She ordered a nicardipine drip and transferred patient to ICU with critical care consult. I evaluated patient following his arrival to the ICU. At that time patient appeared comfortable not in any acute distress. He was moving all 4 extremities at the time and was completely awake and alert and oriented. He did have some tremors in bilateral upper extremities however stated that he was feeling cold and shivering. 10/24: Patient did take his aspirin after talking to his last night. He did receive 0.5 mg Ativan last night for agitation and morphine around 4 AM for pain and subsequently this morning was noted to be lethargic. His O2 sats dropped and he was placed on nonrebreather facemask. His sats improved with IV Narcan however he was also getting hypothermic and bradycardic. I spoke with patient's at bedside as patient did not appear to be protecting his airway. I proceeded with endotracheal intubation and patient was placed on mechanical ventilation. He is awaiting MRI brain. 10/25 MRI brain negative. On propofol, performing sedation vacation and will proceed with SBT and extubate if able. Oliguric overnight, UOP only 50 mL over the shift supervisor. Creatinine 4.87. Initiating diuretic, discussed with Dr. Carlson. Transfusing 1 unit PRBC for Hgb 7.2 per hematology. On heparin drip. 10/26 Pathology now indicating MM. Was started on decadron yesterday by hematology. Was slow to wake up off propofol but was following commands yesterday evening on precedex drip. Propofol resumed overnight in view of some agitation and hypertension.. Would plan for CPAP trial and possible extubation today but will hold off on extubation for now as he may require Vascath placement for dialysis start. Will defer to nephrology, however creatinine continues uptrend and he is oliguric despite diuretic. 10/27 HD started yesterday. CPAP trial today and will extubate as tolerated. UOP 400 last 24 hours with diuretic. 10/28 Patient was extubated yesterday on 5L oxygen. s/p HD 10/27 with removal 2.5L 10/29 Patient s/p HD 10/28 with removal 3L. Received Restoril and Haldol overnight for agitation. Afebrile. Subjective: 10/31: RECONSULT NOTE: called by hospitalist physician for acute altered mental status. patient completely obtunded with disconjugate gaze, sbp 70s. while I was evaluating patient, he aroused and followed commands, appeared post-ictal. very acute change from prior. about 30 minutes prior to this episode, patient complained of severe abdominal pain to oncology PA. stat ABG demonstrated new drop of hgb by 1gm/dL from AM labs. taken down as stroke alert: head CT negative for acute bleed. discussed case with Dr. Schwarz- most likely seizure secondary to acute hypotensive episode. plan to load with [facility]. In addition, CT abd/pelvis done during stroke alert for new abdominal pain: large left psoas hematoma. discussed extensively with Dr. Ziyad Montes De Oca with IR- likely from venous origin and will stop with reversal of anticoagulation. immediately stopped heparin infusion and gave 50mg protamine. gave 2 units prbc emergent release blood as well as 2L crystalloid. BP responded. patient became more awake. repeat 4-hour non-contrasted CT abd/pelvis without evidence of hematoma expansion, and patient feels improved symptoms. 11/01 Reconsult hemodynamic instability: Patient was hypotensive today with [id number], tachycardic s/p HD today with removal 3L. CT abd/pelvis yesterday showed retroperitoneal hemorrhage Hgb dropped 7.4 from 9.5 yesterday receiving 1unit PRBC. On 2L oxygen. Awake and alert. Current MAP 74mmHg Objective Vital Signs Date Time Temp Pulse Resp B/P (MAP) Pulse Ox O2 Delivery O2 Flow Rate FiO2 11/01/17 13:15 144 32 91/52 (65) 93 11/01/17 13:00 97.7 11/01/17 10:20 Nasal Cannula 2.00 Intake and Output 11/01/17 11/01/17 11/02/17 08:00 16:00 00:00 Intake Total 155 ml 30 ml Output Total 25 ml Balance 130 ml 30 ml Result Diagram: 11/01/17 1100 11/01/17 1100 Other Results Laboratory Tests Test 10/31/17 17:27 10/31/17 20:45 11/01/17 11:00 Hemoglobin 9.5 GM/DL 7.4 GM/DL Hematocrit 28.2 % 22.5 % Prothrombin Time 12.7 SEC Prothromb Time International Ratio 1.3 RATIO Activated Partial Thromboplast Time 19.1 SEC White Blood Count 14.1 TH/MM3 Red Blood Count 2.67 MIL/MM3 Mean Corpuscular Volume 84.3 FL Mean Corpuscular Hemoglobin 27.9 PG Mean Corpuscular Hemoglobin Concent 33.1 % Red Cell Distribution Width 16.6 % Platelet Count 143 TH/MM3 Mean Platelet Volume 8.3 FL Neutrophils (%) (Auto) 90.4 % Lymphocytes (%) (Auto) 4.5 % Monocytes (%) (Auto) 4.9 % Eosinophils (%) (Auto) 0.1 % Basophils (%) (Auto) 0.1 % Neutrophils # (Auto) 12.7 TH/MM3 Lymphocytes # (Auto) 0.6 TH/MM3 Monocytes # (Auto) 0.7 TH/MM3 Eosinophils # (Auto) 0.0 TH/MM3 Basophils # (Auto) 0.0 TH/MM3 CBC Comment AUTO DIFF Differential Total Cells Counted 100 Neutrophils % (Manual) 89 % Lymphocytes % 7 % Monocytes % 3 % Neutrophils # (Manual) 12.7 TH/MM3 Metamyelocytes 1 % Nucleated Red Blood Cells 2 /100 WBC Differential Comment FINAL DIFF MANUAL Platelet Estimate LOW Platelet Morphology Comment NORMAL Basophilic Stippling FAINT Blood Urea Nitrogen 65 MG/DL Creatinine 5.65 MG/DL Random Glucose 95 MG/DL Total Protein 5.6 GM/DL Albumin 2.9 GM/DL Calcium Level 7.1 MG/DL Alkaline Phosphatase 58 U/L Aspartate Amino Transf (AST/SGOT) 62 U/L Alanine Aminotransferase (ALT/SGPT) 178 U/L Total Bilirubin 0.6 MG/DL Sodium Level 140 MEQ/L Potassium Level 3.9 MEQ/L Chloride Level 100 MEQ/L Carbon Dioxide Level 22.9 MEQ/L Anion Gap 17 MEQ/L Estimat Glomerular Filtration Rate 10 ML/MIN Protein Corrected Calcium 7.9 MG/DL Imaging Last Impressions Abdomen/Pelvis CT 10/31/17 1500 Signed Impressions: CONCLUSION: 1. Stable right retroperitoneal hemorrhage. 2. Stable effusions and bibasilar consolidation. 3. Cholelithiasis. Although the gallbladder is well-distended I see no pericho lecystic fluid or gallbladder wall thickening. If assessment of acute cholecyst itis is needed I would suggest an ultrasound. Head CT 10/31/17 0000 Signed Impressions: CONCLUSION: 1. Stable exam without evidence of acute infarct, hemorrhage, mass or edema. 2. No change compared to earlier study on 10/23 Chest X-Ray 10/26/17 0000 Signed Impressions: CONCLUSION: 1. Right central line in good position. No evidence of pneumothorax. 2. Bilateral infiltrates. Brain MRI 10/24/17 0600 Signed Impressions: CONCLUSION: Negative MR Brain non contrast. Neck Magnetic Resonance Angiography 10/24/17 0000 Signed Impressions: CONCLUSION: Normal study __ Percent stenosis is calculated using the diameter of the stenotic region over t he diameter of the normal distal internal carotid artery Head Magnetic Resonance Angiography 10/24/17 0000 Signed Impressions: CONCLUSION: Negative MRA Cow ([facility]) non contrast. Cervical Spine MRI 10/24/17 0000 Signed Impressions: CONCLUSION: 1. 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 2. 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 3. Multilevel significant neural foraminal narrowing as detailed at each level in the above discussion. 4. Lesion involving the spinous process of T2. This is incompletely characteri zed on this exam. Consider CT scan to further assess. Bone Biopsy CT 10/23/17 Signed Impressions: CONCLUSION: 1. Uncomplicated CT guided bone marrow aspirate. 2. Uncomplicated CT guided bone marrow biopsy. Bone Osseous Survey 10/20/17 Signed Impressions: CONCLUSION: Ill-defined lucencies and patchy cortical thinning of multiple bones, primarily the long bones and especially the right tibia and fibula. Extensive multiple m yeloma could certainly have this appearance in the proper clinical setting. Renal Ultrasound 10/19/17 Signed Impressions: CONCLUSION: 1. Negative renal sonogram. Objective Remarks Gen: Elderly obese male lying in bed lying in bed in NAD HEENT/ Neuro: RASS -5. does not follow commands. Chest/Pulm: equal chest rise. NRB initially. clear to auscultation. CVS: tachycardic, nl S1 S2 GI/abdomen: soft, mild tenderness on palpation, mildly distended : Mathis in place with yellow urine in the Mathis Extremities: warm bilaterally, 1+ edema NEURO: Awake and alert. A/P Assessment and Plan 82 y/o male with Acute Encephalopathy- Resolved Hemorrhagic shock Retroperitoneal hemorrhage Anemia secondary to acute blood loss History of atrial fibrillation hypercalcemia acute renal failure. h/o MGUS now appears Multiple Myeloma chronic kidney disease hypothyroidism h/o colon cancer Plan: Neuro Acute encephalopathy Monitor neuro status- Awake and alert. -10/31 CT brain : No acute intracranial findings -10/31 EEG: Mild encephalopathy -MRA brain/ neck - no abnormality -MRI brain negative -MRI Cspine with degeneration C3/4 and C4/5 with cord edema. Neuro is following- Dr. Schwarz - PT consulted -ammonia level normal. Cardiovascular: HTN AFIB Monitor HR and BP keep MAP>65mmHg Echo showed EF 60-65%, normal LV diastolic function Hold BP meds for low BP . Pulmonary: Resp Insuff suspected NANCY. Continue with oxygen keep sats >92% Bronchodilators NIPPV PRN for resp distress GI/liver: Retroperitoneal hematoma/Hemorrhage Esophagitis History of colon cancer -Keep NPO -Consult general surgery discussed with Dr. J. Will repeat CT abd/pelvis with IV contrast for retroperitoneal hemorrhage, transfuse 2units RBC, 1u Cryo 10/31 CT abd/pelvis 10/31 showed retroperitoneal hematoma 9.3x6.7x6.2 cm EGD 10/24LA class C esophagitis with NG trauma. Normal mucosa of stomach, duodenum. Continue PPI per GI recommendation Renal/: ZOFIA overlying CKD Light chain cast nephropathy Hypercalcemia , resolved -Received pamidronate for hypercalcemia per nephrology on 10/23. -R IJ vascath placed 10/26 and started on HD. s/p HD today with removal 1L -Nephrology following. Dr. Carlson [facility]: Plasma cell myeloma Chronic anticoagulation due to history of atrial fibrillation and lower extremity DVT -Being followed by oncology. Had known MGUS. - bone marrow biopsy 10/23 c/w myeloma -Off Decadron -Anticoagulation held for retroperitoneal hematoma -Transfused 1 unit packed red cells 10/25. -Will transfuse 2units PRBC, 1unit Cryo monitor H/H Q6 -Monitor CBC, coags , fibrinogen level. ID: -Pancultured ( Blood, sputum, Urine ) 10/24: NGTD Continue with abx (Zosyn)monitor for signs of infections ( Fever, WBC) Microbiology: 10/24urine culture negative 10/24 sputum culture negative. 10/24 blood culture no growth to date Endocrine: Hypothyroidism Continue Synthroid 75 mg p.o. daily on SSI fo glycemic control TSH normal 10/19 Prophylaxis: SCDs. PPI Lines: R IJ vascath placed 10/26 Yakov Villalobos MD Nov 01, 2017 15:27
--- NOTE | 2017-11-01 16:13 | HHI.NPPN ---
Subjective History of Present Illness The patient is an 82 yo [place] male who presented to this facility on 10/18/17 at the urge of his deliverer outside and PCP for anemia. He has been having some fatigue and weakness over the past few weeks and a CBC showed a Hgb of 7.2 prompting evaluation at the hospital. The patient's is the primary historian. Was admitted here in Jun for a L femur fx that he sustained at home while turning while moving TV tray causing a twist and fall type injury on his left leg. reports spiral fracture of his left femur that he underwent ORIF. He subsequently developed a DVT in the same leg. Renal functions during that admission were overall normal with SCr at 0.8 baseline. Serum calcium normal at this admission at 8.6-9.0. In August, he developed A fib with RVR and had acute renal insufficiency though nephrology services were not called as his functions improved with correction of RVR (admitting SCr 2.40 on 08/29 and discharge on 09/01 at 1.74). Noted mild hypercalcemia during this admission at 10.7. 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 Byrne, but was many years ago as per the . Says that he never underwent bone marrow bx, but had multiple labs that "didn't change" so they opted to stop following up. Given his recent anemia, his PCP did refer him to Dr. Jordyn Garcia, but appointment not until November. No known CKD hx. Denies any recent NVD No NSAID use No recent abx. Besides the aforementioned health history as of recent, he has been in his usual state of health as per his . Has been on Calcium 600mg with 500IU Vitamin D, with an additional Vitamin D3 1000IU daily since his femur fx. Admitting SCr 2.11 that has improved to 4.47 at consult. Serum CCa 12.9 at admission Interval History Patient had dialysis today but we were unable to achieve ultrafiltration goal secondary to hypotension. Apparently the patient is requiring additional blood transfusion and vascular surgery is planning to have a CTA to further evaluate for ongoing bleeding. Review of Systems General Constitutional: Fatigue Objective Data Data 11/01/17 11/02/17 19:00 07:00 Intake Total 30 ml Output Total 1000 ml Balance -970 ml Blood Product IV Normal Saline Flush 30 ml Hemodialysis 1000 ml Vital Signs Date Time Temp Pulse Resp B/P (MAP) Pulse Ox O2 Delivery O2 Flow Rate FiO2 11/01/17 15:07 97.6 145 20 98/54 92 11/01/17 14:52 97.6 145 18 108/55 91 11/01/17 14:48 98.1 144 18 95/49 91 11/01/17 14:00 144 11/01/17 13:15 144 32 91/52 (65) 93 11/01/17 13:00 97.7 144 33 86/52 (63) 93 11/01/17 12:45 144 34 86/51 (63) 93 11/01/17 12:30 144 33 86/52 (63) 93 11/01/17 12:15 145 35 89/52 (64) 92 11/01/17 12:00 145 35 86/54 (65) 91 11/01/17 12:00 145 11/01/17 11:45 146 31 84/52 (63) 91 11/01/17 11:33 147 30 79/50 (60) 93 11/01/17 11:30 146 30 80/50 (60) 93 11/01/17 11:15 137 27 117/58 (77) 93 11/01/17 11:00 115 25 121/59 (79) 93 11/01/17 10:20 92 Nasal Cannula 2.00 11/01/17 10:00 100 11/01/17 10:00 126 34 104/55 (71) 91 11/01/17 08:00 132 23 129/60 (83) 91 11/01/17 08:00 138 11/01/17 07:00 97.7 103 22 115/59 (77) 98 11/01/17 07:00 95 Nasal Cannula 4.00 11/01/17 06:00 127 11/01/17 04:00 97.6 103 17 97/54 (68) 97 11/01/17 04:00 103 11/01/17 02:00 101 11/01/17 00:00 101 11/01/17 00:00 98.2 101 30 115/63 (80) 95 10/31/17 22:00 104 10/31/17 20:01 Nasal Cannula 4.00 10/31/17 20:00 97.3 114 26 109/68 (82) 95 10/31/17 20:00 114 10/31/17 19:00 99 Nasal Cannula 2.00 10/31/17 18:00 134 10/31/17 17:40 98.8 140 18 121/73 (89) 98 -: 11/01/17 1100 11/01/17 1100 Physical Exam General Appearance: Well Developed, Well Nourished, No Acute Distress, Comfortable Eyes Eye Exam: Sclera White Pulmonary Resp Exam: Clear Bilaterally, Breath Sounds Equal, No Distress Cardiology CV Exam: Regular, Normal Sinus Rhythm Gastrointestinal/Abdomen GI Exam: Soft, Non-Tender Genitourinary Exam: Clear Urine Integumentary Skin Exam: Clear, Warm Extremeties Extremities Exam: Moderate Edema Neurologic Neuro Exam: Awake, Speech Clear, Moving All Extremities Assessment/Plan Discussed Condition With: Patient, Spouse Problem List: (1) Acute renal failure ICD Codes: N17.9 - Acute kidney failure, unspecified Status: Acute Plan: The patient is suspected of having ongoing bleeding in relation to his retroperitoneal bleed requiring further blood transfusion today with some hemodynamic instability. CTA is planned by vascular surgery. I discussed with the patient and regarding issues concerning administration of IV contrast which may result in contrast nephrotoxicity superimposed on his already acute on chronic kidney failure. Risk-benefit ratio has to be considered as discussed with them and they are agreeable to go ahead with CTA. We will plan for hemodialysis post CTA tomorrow. Patient is still very ill with guarded prognosis. If the patient continues to remain dialysis dependent will need to consider placement of a hemodialysis PermCath to replace the Vas-Cath prior to discharge. Serum kapa chain serum level well over 1500 at 5385.6 mg/L with kapa chains evident in the urine and proteinuria consisting of 100% monoclonal protein according to lab. 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 Medications should be adjusted for the patient's renal decline. Avoid nephrotoxic agents such as iodinated contrast dyes and NSAIDs. Avoid gadolinium. (2) Hypercalcemia ICD Codes: E83.52 - Hypercalcemia Status: Acute Plan: Calcium level has improved. Likely related to a combination of dialysis and biphosphonate (3) Retroperitoneal hematoma ICD Codes: K66.1 - Hemoperitoneum Status: Acute (4) Atrial fibrillation ICD Codes: I48.91 - Unspecified atrial fibrillation Plan: Management as per primary team (5) HTN (hypertension) ICD Codes: I10 - Essential (primary) hypertension Status: Chronic Plan: Continue current regimen Given PRN Labetalol and Clonidine today. Will adjust further tomorrow if needed. Juan Ramon Carlson MD Nov 01, 2017 16:13
[2017-11-01 17:20] LABS: INTERNATIONAL NORMALIZED RATIO 1.2 RATIO; PROTHROMBIN TIME - PATIENT 12.6 SEC (9.8-11.6)
[2017-11-01] MEDS ORDERED: ALBUMIN 25% INJ 100 ML IV PRN (17:30)
[2017-11-01] MEDS: MORPHINE SULFATE 4 MG/ML INJ IV PRN (19:26)
--- NOTE | 2017-11-01 20:32 | MB ---
cc: Kennedi Costa MD, Slobodan MD DATE: 11/01/2017 REASON FOR CONSULTATION: Right psoas and rectus retroperitoneal hematoma, hypocoagulable state, right retroperitoneal bleeding, renal failure, atrial fibrillation, multiple myeloma. Critical care time 38 minutes. HISTORY OF PRESENT ILLNESS: This 82-year-old gentleman was admitted initially to the hospital about 10 days ago for progressive anemia. He had a history of GI bleed. The patient was noted to have renal failure and hypercalcemia and was treated. On 10/31, patient started developing mental status changes, disconjugate gaze and acted postictal. It was unclear what happened. The patient was evaluated in the ICU and noted to have a drop in hemoglobin, evaluated by Neurology most likely seizures due to hypotensive episode. The patient was sent to CAT scan, underwent CT of abdomen and pelvis, which noted a large retroperitoneal hematoma on the right psoas area and right rectus sheath. The patient was to be noted very hypocoagulable at the time. He has been on Eliquis for previous DVT and also PE. Due to the retroperitoneal hematoma, I was consulted to see the patient. PAST MEDICAL HISTORY: Very complex and I got it from the chart as well as patient's . Includes DVT, hypertension, hypothyroidism, colon cancer, diagnosis of multiple myeloma with chronic anemia. SURGICAL HISTORY: Colon resection, laminectomy, 3 hip surgeries and 2 knee surgeries. PHYSICAL EXAMINATION: GENERAL: Reveals an 82-year-old gentleman. He is awake and alert, but somewhat somnolent. HEENT: Normocephalic. No trauma to the head. Pupils are equally reactive. Extraocular muscles intact. NECK: Supple. Bilateral carotid pulses. No bruits. CHEST: Decreased breath sounds on both sides. The patient somewhat labored. HEART: Irregular rhythm. The patient has a rapid either atrial fibrillation or sinus rhythm with a rate around 138-140. ABDOMEN: Soft, tender in the right eric-abdomen consistent with above noted hematomas, which would be very painful considering the stretching of the peritoneum. Left side is nontender. Groins are normal. EXTREMITIES: The patient has poor distal pulses, but no other acute vascular deficit. BACK: Not examined. The patient is not moved. IMPRESSION AND RECOMMENDATIONS: I reviewed laboratory and diagnostic procedures. The gentleman indeed was very hypocoagulable, was on Eliquis then received heparin for presumed diagnosis of pulmonary embolism due to hypoxia. He then bled in the retroperitoneum. I believe that the retroperitoneal bleed is now contained. The patient has several issues that would make him hypocoagulable or cause platelets or various factors to be dysfunctional. First of all, he was on Eliquis, which is Factor 10 inhibitor, then he was placed on heparin. In addition, the patient has chronic renal failure, which clearly affects platelets and their functional ability to aggregate. In addition, the patient is diagnosed with multiple myeloma, which can be associated with various problems. Hematology is seeing the patient. As far as the bleeding is concerned, this retroperitoneal hematoma is now contained and in the best most likely case scenarios, it will stay so as long as the patient's coagulation profile is corrected. If the patient continues to bleed, then he will need angiogram with possible embolization; however, he is not a candidate for any open surgery other than most lifesaving critical procedures. At this point, I suggested transfusing another 2 units of packed red blood cells and a cryoprecipitate and then potentially, if the patient's hemoglobin stays stable, do not think if there is a question do a repeat CT scan. Embolization again should be also a last resort possibility considering the dye load and preexisting renal failure already. I will continue to follow the patient with you. Critical care 38 minutes. MD FÁTIMA Atkinson/ , 08:05 PM , 08:31 PM
[2017-11-01 22:01] LABS: HEMATOCRIT 26.8 % (39.0-51.0); HEMOGLOBIN 9.2 GM/DL (13.0-17.0)
[2017-11-01] MEDS: HYDROmorphone HCL PF 2 MG/ML VIAL IV PUSH PRN (22:31)
[2017-11-02] VITALS (11 sets, daily range): BP systolic 125–202; BP diastolic 60–94; PULSE 92–144; RESP 16–37; TEMP 97.9–99.8; O2SAT 3–97
[2017-11-02] MEDS: METOPROLOL TARTRATE 5 MG/5 ML VIAL IV PUSH PRN ×5 (01:49→18:35)
[2017-11-02] MEDS: INSULIN ASPART SUPPLEMENTAL SCALE SQ SCH ×4 (02:00→20:00)
[2017-11-02] MEDS: PIPERACIL-TAZO 2.25 GM PREMIX 50 ML IV SCH ×3 (02:07→18:13)
[2017-11-02] MEDS: RESP: ALBUTEROL 2.5 MG/IPRATROPIUM 0.5 MG NEB (SCH) NEB ×3 (04:00→11:39)
[2017-11-02] MEDS: LEVOTHYROXINE SODIUM 75 MCG TAB PO SCH (05:48)
[2017-11-02] MEDS: HYDROmorphone HCL PF 2 MG/ML VIAL IV PUSH PRN (05:48)
[2017-11-02 05:49] LABS: AUTOMATED NEUTROPHIL # 13.5 TH/MM3 (1.8-7.7); BASOPHIL % 0.1 % (0.0-2.0); EOSINOPHIL % 0.2 % (0.0-4.0); HEMATOCRIT 27.6 % (39.0-51.0); HEMOGLOBIN 9.3 GM/DL (13.0-17.0); LYMPH % 2.4 % (9.0-44.0); LYMPHOCYTE # 0.3 TH/MM3 (1.0-4.8); MEAN CELL VOLUME 84.5 FL (80.0-100.0); MEAN CORPUSCULAR HEMOGLOBIN 28.6 PG (27.0-34.0); MEAN CORPUSCULAR HGB CONC 33.9 % (32.0-36.0); MEAN PLATELET VOLUME 8.3 FL (7.0-11.0); MONO % 5.1 % (0.0-8.0); MONOCYTE # 0.7 TH/MM3 (0-0.9); NEUT % 92.2 % (16.0-70.0); PLATELET COUNT 125 TH/MM3 (150-450); RED BLOOD COUNT 3.26 MIL/MM3 (4.50-5.90); RED CELL DISTRIBUTION WIDTH 15.4 % (11.6-17.2); WHITE BLOOD COUNT 14.6 TH/MM3 (4.0-11.0)
[2017-11-02 06:51] LABS: ALBUMIN 2.7 GM/DL (3.4-5.0); ALKALINE PHOSPHATASE 70 U/L (45-117); ALT (GPT) 163 U/L (12-78); AST (GOT) 75 U/L (15-37); BICARBONATE 25.5 MEQ/L (21.0-32.0); BLOOD UREA NITROGEN 44 MG/DL (7-18); CALCIUM 7.5 MG/DL (8.5-10.1); CHLORIDE 104 MEQ/L (98-107); CREATININE 4.56 MG/DL (0.60-1.30); GLOMERULAR FILTRATION RATE 12 ML/MIN (>89); GLUCOSE,RANDOM 95 MG/DL (74-106); SODIUM (NA) 142 MEQ/L (136-145); TOTAL BILIRUBIN ADULT 0.8 MG/DL (0.2-1.0); TOTAL PROTEIN 6.1 GM/DL (6.4-8.2)
[2017-11-02] MEDS: CHLORHEXIDINE 0.12% (ORAL KIT) 15 ML CUP MT SCH ×2 (08:00→20:00)
[2017-11-02] MEDS: DOCUSATE SODIUM 100 MG CAP PO SCH ×2 (08:55→21:00)
[2017-11-02] MEDS: SODIUM CHLORIDE 0.9% FLUSH 10 ML FLUSH IV FLUSH SCH ×2 (08:55→21:00)
[2017-11-02] MEDS: CHOLECALCIFEROL (VIT D3) 1000 UNIT TAB PO SCH (08:59)
[2017-11-02] MEDS: MULTIVITAMIN TAB PO SCH (08:59)
[2017-11-02] MEDS: PANTOPRAZOLE SODIUM 40 MG VIAL IV PUSH SCH (09:08)
--- NOTE | 2017-11-02 11:06 | PD.ONC.PN ---
Subjective Subjective Remarks T-max 99.8 this morning Patient's son at bedside notes his dad is much more alert today Patient complains of some mild abdominal pain however states this has been ongoing No shortness of breath Objective Data Date Time Temp Pulse Resp B/P (MAP) Pulse Ox O2 Delivery O2 Flow Rate FiO2 11/02/17 10:06 3 Venturi Mask 6.00 40 11/02/17 08:00 99.8 140 24 136/78 (97) 93 11/02/17 07:00 93 Simple Mask 5.00 11/02/17 06:55 20 11/02/17 06:00 137 11/02/17 04:00 137 11/02/17 04:00 98.9 137 20 125/64 (84) 83 11/02/17 02:00 136 11/02/17 00:00 98.1 144 30 127/60 (82) 90 11/02/17 00:00 144 11/01/17 22:00 144 11/01/17 20:00 144 11/01/17 20:00 99.2 144 27 134/60 (84) 89 11/01/17 19:50 2 Nasal Cannula 3.00 11/01/17 19:40 25 11/01/17 19:00 90 Nasal Cannula 4.00 11/01/17 18:00 144 11/01/17 16:58 98.8 23 113/54 89 11/01/17 16:50 98.8 145 28 102/55 90 11/01/17 16:37 99.1 146 22 102/55 90 11/01/17 16:00 145 11/01/17 16:00 97.8 145 40 102/55 (71) 88 11/01/17 15:07 97.6 145 20 98/54 92 11/01/17 14:52 97.6 145 18 108/55 91 11/01/17 14:48 98.1 144 18 95/49 91 11/01/17 14:00 144 11/01/17 13:15 144 32 91/52 (65) 93 11/01/17 13:00 97.7 144 33 86/52 (63) 93 11/01/17 12:45 144 34 86/51 (63) 93 11/01/17 12:30 144 33 86/52 (63) 93 6/15/18 12:15 145 35 89/52 (64) 92 11/01/17 12:00 145 35 86/54 (65) 91 11/01/17 12:00 145 11/01/17 11:45 146 31 84/52 (63) 91 11/01/17 11:33 147 30 79/50 (60) 93 11/01/17 11:30 146 30 80/50 (60) 93 11/01/17 11:15 137 27 117/58 (77) 93 11/01/17 11:00 115 25 121/59 (79) 93 11/02/17 11/02/17 11/02/17 07:00 15:00 23:00 Intake Total 50 ml Output Total 50 ml Balance 0 ml Result Diagram: 11/02/17 0505 11/02/17 0505 Laboratory Results Laboratory Tests Test 11/01/17 11:00 11/01/17 14:48 11/01/17 21:38 11/02/17 05:05 White Blood Count 14.1 TH/MM3 14.6 TH/MM3 Red Blood Count 2.67 MIL/MM3 3.26 MIL/MM3 Hemoglobin 7.4 GM/DL 9.2 GM/DL 9.3 GM/DL Hematocrit 22.5 % 26.8 % 27.6 % Mean Corpuscular Volume 84.3 FL 84.5 FL Mean Corpuscular Hemoglobin 27.9 PG 28.6 PG Mean Corpuscular Hemoglobin Concent 33.1 % 33.9 % Red Cell Distribution Width 16.6 % 15.4 % Platelet Count 143 TH/MM3 125 TH/MM3 Mean Platelet Volume 8.3 FL 8.3 FL Neutrophils (%) (Auto) 90.4 % 92.2 % Lymphocytes (%) (Auto) 4.5 % 2.4 % Monocytes (%) (Auto) 4.9 % 5.1 % Eosinophils (%) (Auto) 0.1 % 0.2 % Basophils (%) (Auto) 0.1 % 0.1 % Neutrophils # (Auto) 12.7 TH/MM3 13.5 TH/MM3 Lymphocytes # (Auto) 0.6 TH/MM3 0.3 TH/MM3 Monocytes # (Auto) 0.7 TH/MM3 0.7 TH/MM3 Eosinophils # (Auto) 0.0 TH/MM3 0.0 TH/MM3 Basophils # (Auto) 0.0 TH/MM3 0.0 TH/MM3 CBC Comment AUTO DIFF DIFF FINAL Differential Total Cells Counted 100 Neutrophils % (Manual) 89 % Lymphocytes % 7 % Monocytes % 3 % Neutrophils # (Manual) 12.7 TH/MM3 Metamyelocytes 1 % Nucleated Red Blood Cells 2 /100 WBC Differential Comment FINAL DIFF MANUAL Platelet Estimate LOW Platelet Morphology Comment NORMAL Basophilic Stippling FAINT Blood Urea Nitrogen 65 MG/DL 44 MG/DL Creatinine 5.65 MG/DL 4.56 MG/DL Random Glucose 95 MG/DL 95 MG/DL Total Protein 5.6 GM/DL 6.1 GM/DL Albumin 2.9 GM/DL 2.7 GM/DL Calcium Level 7.1 MG/DL 7.5 MG/DL Alkaline Phosphatase 58 U/L 70 U/L Aspartate Amino Transf (AST/SGOT) 62 U/L 75 U/L Alanine Aminotransferase (ALT/SGPT) 178 U/L 163 U/L Total Bilirubin 0.6 MG/DL 0.8 MG/DL Sodium Level 140 MEQ/L 142 MEQ/L Potassium Level 3.9 MEQ/L 3.8 MEQ/L Chloride Level 100 MEQ/L 104 MEQ/L Carbon Dioxide Level 22.9 MEQ/L 25.5 MEQ/L Anion Gap 17 MEQ/L 13 MEQ/L Estimat Glomerular Filtration Rate 10 ML/MIN 12 ML/MIN Protein Corrected Calcium 7.9 MG/DL Prothrombin Time 12.6 SEC Prothromb Time International Ratio 1.2 RATIO Activated Partial Thromboplast Time 20.8 SEC Fibrinogen 303 mg/dL Administered Medications Medications (Trade) Dose Ordered Sig/Reggie Route PRN Reason Start Time Stop Time Status Last Admin Dose Admin Sodium Chloride (NS Flush) 2 ml UNSCH PRN IV FLUSH FLUSH AFTER USING IV ACCESS 10/18/17 14:15 10/25/17 08:22 Sodium Chloride (NS Flush) 2 ml BID IV FLUSH 10/18/17 21:00 11/02/17 08:55 Morphine Sulfate (Morphine Inj) 4 mg Q3H PRN IV Pain 6-10;if unable to take PO 10/18/17 14:45 11/01/17 19:26 Naloxone HCl (Narcan Inj) 0.4 mg UNSCH PRN IV PUSH SEE LABEL COMMENTS 10/18/17 14:15 10/24/17 06:58 Cholecalciferol (Vitamin D3) 2,000 units DAILY PO 10/19/17 09:00 11/01/17 09:06 Levothyroxine Sodium (Synthroid) 75 mcg DAILY@0600 PO 10/19/17 06:00 11/02/17 05:48 Multivitamins (Theragran) 1 tab DAILY PO 10/19/17 09:00 11/01/17 09:08 Docusate Sodium (Colace) 100 mg BID PO 10/18/17 21:00 11/01/17 09:07 Clonidine (Catapres) 0.1 mg Q6H PRN PO SBP>160, DBP>90 10/18/17 18:30 10/28/17 07:35 Miscellaneous Information ([facility] Information) Patient in critical care unit? Ass... [id number] .XX 10/23/17 23:00 10/23/17 23:00 Chlorhexidine Gluconate (Peridex 0.12% Liq) 15 ml BID@08,20 MT 10/24/17 20:00 11/02/17 08:00 Famotidine (Pepcid) 10 mg BID PO 10/24/17 11:00 Future Hold 10/24/17 12:19 Heparin Sodium/ Dextrose 250 ml @ 18 mls/hr TITRATE PRN IV Coagulation Management 10/24/17 17:45 Future hold 10/30/17 17:04 Piperacillin Sod/ Tazobactam Sod 50 ml @ 100 mls/hr Q8H IV 10/25/17 18:00 11/02/17 09:08 Pantoprazole Sodium (Protonix Inj) 40 mg Q12H IV PUSH 10/25/17 21:00 11/02/17 09:08 Insulin Aspart (NovoLOG SUPPLEMENTAL SCALE) 1 Q6H SQ 10/26/17 08:00 10/30/17 20:34 Sodium Chloride 1,000 ml @ 0 mls/hr Q0M PRN OTHER For Prime & Rinse Back 10/26/17 12:43 Future Hold 10/30/17 16:00 Albumin Human 100 ml @ 60 mls/hr UNSCH PRN IV WITH DIALYSIS 10/26/17 12:45 Future Hold 10/26/17 16:00 Heparin Sodium (Porcine) (Heparin Inj) UNSCH PRN .XX WITH DIALYSIS 10/26/17 12:45 Future Hold 10/30/17 16:00 Gentamicin Sulfate (Gentamicin Inj) 20 mg UNSCH PRN OTHER WITH DIALYSIS 10/26/17 12:45 Future Hold 10/30/17 16:00 Diphenhydramine HCl (Benadryl) 25 mg UNSCH PRN PO for hives/itching/anaphylaxis 10/26/17 12:45 Future Hold 10/28/17 02:30 Metoprolol Tartrate (Lopressor Inj) 5 mg Q6H PRN IV PUSH HR > 100 10/28/17 02:15 Future Hold 10/29/17 00:47 Metoprolol Tartrate (Lopressor Inj) 5 mg Q5M PRN IV PUSH HR>100 10/28/17 05:15 Future Hold 10/30/17 21:06 Albuterol/ Ipratropium (Duoneb Neb) 1 ampule Q4HR NEB NEB 10/29/17 12:00 11/02/17 10:06 Clonidine (Catapres) 0.1 mg Q8HR PO 10/29/17 09:00 Future Hold 10/30/17 20:35 Hydromorphone HCl (Dilaudid Pf Inj) 0.5 mg Q4H PRN IV PUSH breakthough pain 11/01/17 22:15 11/02/17 05:48 Metoprolol Tartrate (Lopressor Inj) 5 mg Q5M PRN IV PUSH HR>100 11/02/17 01:45 11/02/17 02:26 Objective Remarks GENERAL: Elderly male resting in bed in no obvious distress SKIN: Warm and dry. No oozing from lines HEAD: Normocephalic. EYES: No injection or drainage. NECK: Supple, trachea midline. CARDIOVASCULAR: Tachycardia RESPIRATORY: Scattered rhonchi anteriorly. GASTROINTESTINAL: Abdomen soft, non-tender, nondistended. EXTREMITIES: No cyanosis. No edema to lower extremities. Peripheral IV noted to left ankle. NEUROLOGICAL: Normal speech. Awake and alert. Assessment/Plan Assessment 82y/o male with anemia, hypercalcemia, and acute renal failure. h/o MGUS, hypertension, chronic kidney disease, hypothyroidism, colon cancer, anemia. Plan The patient has IgG kappa multiple myeloma with bone marrow involvement as well as skeletal metastases. He is currently critically ill with acute renal failure , retroperitoneal bleed with anemia. His hemoglobin is noted to be stable from yesterday. Continue to monitor CBC. Once he is stable from acute illness would consider initiating treatment with Velcade. Attending Statement The exam, history, and the medical decision-making described in the above note were completed with the assistance of the mid-level provider. I reviewed and agree with the findings presented. I attest that I had a [id number] encounter with the patient on the same day, and personally performed and documented my assessment and findings in the medical record. Patient remains very ill. At the moment he appears to have a supraventricular tachycardia with a heart rate of 144. Nursing notified. His renal failure I believe is due to the large amount of kappa light chain that he produces. As soon as he stabilizes Dr. Lamb is planning on beginning chemotherapy. There are multiple regimens for myeloma and many of these are tolerable and results can be favorable in a short period of time as measured by several months. The renal failure is potentially reversible. Kym Roth Nov 02, 2017 11:05 Carson Jo MD Nov 02, 2017 14:04
[2017-11-02] MEDS ORDERED: DILTIAZEM HCL 60 MG TAB PO ONE (11:45)
--- NOTE | 2017-11-02 12:49 | EKG ---
Date Performed: 11/01/2017 Time Performed: 17:26:04 PTAGE: 82 years EKG: ATRIAL FLUTTER/TACHYCARDIA WITH RAPID VENTRICULAR RESPONSE INFERIOR MYOCARDIAL INFARCTION , OF INDETERMINATE AGE ST DEVIATION AND MODERATE T-WAVE ABNORMALITY, CONSIDER LATERAL ISCHEMIA ABNORMA L ECG PREVIOUS TRACING : 10/31/2017 11.17 Since the previous tracing, no significant change noted DOCTOR: Willis Espinosa Interpretating Date/Time 11/02/2017 12:48:46
--- NOTE | 2017-11-02 12:57 | PD.CAR.PN ---
CVT Progress Note Subjective/Hospital Course: 11/02/2017 Patient with hypercoagulable state multiple coagulation issues related to various pathologic processes and iatrogenic anticoagulation developed large psoas hematoma in the right posterior rectus sheath hematoma. Patient is now stable left and transfusion of blood and blood products and clinically he is not bleeding This is contained hemorrhage and should resolve on its own Abdomen is soft hypoactive bowel sounds somewhat tender in the right hemiabdomen but no rebound or guarding is noted Patient looks much better today by overall picture Nothing to add to care at this time I do not believe that repeat CT scan will add anything to diagnosis or management. Objective: Vital Signs Date Time Temp Pulse Resp B/P (MAP) Pulse Ox O2 Delivery O2 Flow Rate FiO2 11/02/17 10:06 3 Venturi Mask 6.00 40 11/02/17 08:00 99.8 140 24 136/78 (97) 93 11/02/17 07:00 93 Simple Mask 5.00 11/02/17 06:55 20 11/02/17 06:00 137 11/02/17 04:00 137 11/02/17 04:00 98.9 137 20 125/64 (84) 83 11/02/17 02:00 136 11/02/17 00:00 98.1 144 30 127/60 (82) 90 11/02/17 00:00 144 11/01/17 22:00 144 11/01/17 20:00 144 11/01/17 20:00 99.2 144 27 134/60 (84) 89 11/01/17 19:50 2 Nasal Cannula 3.00 11/01/17 19:40 25 11/01/17 19:00 90 Nasal Cannula 4.00 11/01/17 18:00 144 11/01/17 16:58 98.8 23 113/54 89 11/01/17 16:50 98.8 145 28 102/55 90 11/01/17 16:37 99.1 146 22 102/55 90 11/01/17 16:00 145 11/01/17 16:00 97.8 145 40 102/55 (71) 88 11/01/17 15:07 97.6 145 20 98/54 92 11/01/17 14:52 97.6 145 18 108/55 91 11/01/17 14:48 98.1 144 18 95/49 91 11/01/17 14:00 144 11/01/17 13:15 144 32 91/52 (65) 93 11/01/17 13:00 97.7 144 33 86/52 (63) 93 Labs: Laboratory Tests Test 11/02/17 05:05 White Blood Count 14.6 TH/MM3 (4.0-11.0) Red Blood Count 3.26 MIL/MM3 (4.50-5.90) Hemoglobin 9.3 GM/DL (13.0-17.0) Hematocrit 27.6 % (39.0-51.0) Mean Corpuscular Volume 84.5 FL (80.0-100.0) Mean Corpuscular Hemoglobin 28.6 PG (27.0-34.0) Mean Corpuscular Hemoglobin Concent 33.9 % (32.0-36.0) Red Cell Distribution Width 15.4 % (11.6-17.2) Platelet Count 125 TH/MM3 (150-450) Mean Platelet Volume 8.3 FL (7.0-11.0) Neutrophils (%) (Auto) 92.2 % (16.0-70.0) Lymphocytes (%) (Auto) 2.4 % (9.0-44.0) Monocytes (%) (Auto) 5.1 % (0.0-8.0) Eosinophils (%) (Auto) 0.2 % (0.0-4.0) Basophils (%) (Auto) 0.1 % (0.0-2.0) Neutrophils # (Auto) 13.5 TH/MM3 (1.8-7.7) Lymphocytes # (Auto) 0.3 TH/MM3 (1.0-4.8) Monocytes # (Auto) 0.7 TH/MM3 (0-0.9) Eosinophils # (Auto) 0.0 TH/MM3 (0-0.4) Basophils # (Auto) 0.0 TH/MM3 (0-0.2) CBC Comment DIFF FINAL Differential Comment Blood Urea Nitrogen 44 MG/DL (7-18) Creatinine 4.56 MG/DL (0.60-1.30) Random Glucose 95 MG/DL (74-106) Total Protein 6.1 GM/DL (6.4-8.2) Albumin 2.7 GM/DL (3.4-5.0) Calcium Level 7.5 MG/DL (8.5-10.1) Alkaline Phosphatase 70 U/L (45-117) Aspartate Amino Transf (AST/SGOT) 75 U/L (15-37) Alanine Aminotransferase (ALT/SGPT) 163 U/L (12-78) Total Bilirubin 0.8 MG/DL (0.2-1.0) Sodium Level 142 MEQ/L (136-145) Potassium Level 3.8 MEQ/L (3.5-5.1) Chloride Level 104 MEQ/L (98-107) Carbon Dioxide Level 25.5 MEQ/L (21.0-32.0) Anion Gap 13 MEQ/L (5-15) Estimat Glomerular Filtration Rate 12 ML/MIN (>89) Result Diagram: 11/02/17 0505 11/02/17 0505 Kennedi Costa MD Nov 02, 2017 12:57
--- NOTE | 2017-11-02 13:04 | HHI.NPPN ---
Subjective History of Present Illness The patient is an 82 yo [place] male who presented to this facility on 10/18/17 at the urge of his public service officer and PCP for anemia. He has been having some fatigue and weakness over the past few weeks and a CBC showed a Hgb of 7.2 prompting evaluation at the hospital. The patient's is the primary historian. Was admitted here in Jun for a L femur fx that he sustained at home while turning while moving TV tray causing a twist and fall type injury on his left leg. reports spiral fracture of his left femur that he underwent ORIF. He subsequently developed a DVT in the same leg. Renal functions during that admission were overall normal with SCr at 0.8 baseline. Serum calcium normal at this admission at 8.6-9.0. In August, he developed A fib with RVR and had acute renal insufficiency though nephrology services were not called as his functions improved with correction of RVR (admitting SCr 2.40 on 08/29 and discharge on 09/01 at 1.74). Noted mild hypercalcemia during this admission at 10.7. 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 Byrne, but was many years ago as per the . Says that he never underwent bone marrow bx, but had multiple labs that "didn't change" so they opted to stop following up. Given his recent anemia, his PCP did refer him to Dr. Jordyn Garcia, but appointment not until November. No known CKD hx. Denies any recent NVD No NSAID use No recent abx. Besides the aforementioned health history as of recent, he has been in his usual state of health as per his . Has been on Calcium 600mg with 500IU Vitamin D, with an additional Vitamin D3 1000IU daily since his femur fx. Admitting SCr 2.11 that has improved to 4.47 at consult. Serum CCa 12.9 at admission Interval History Patient lying in bed not in respiratory distress clinically. Complaining of some abdominal discomfort with coughing. Review of Systems General Constitutional: Fatigue Objective Data Data Vital Signs Date Time Temp Pulse Resp B/P (MAP) Pulse Ox O2 Delivery O2 Flow Rate FiO2 11/02/17 10:06 3 Venturi Mask 6.00 40 11/02/17 08:00 99.8 140 24 136/78 (97) 93 11/02/17 07:00 93 Simple Mask 5.00 11/02/17 06:55 20 11/02/17 06:00 137 11/02/17 04:00 137 11/02/17 04:00 98.9 137 20 125/64 (84) 83 11/02/17 02:00 136 11/02/17 00:00 98.1 144 30 127/60 (82) 90 11/02/17 00:00 144 11/01/17 22:00 144 11/01/17 20:00 144 11/01/17 20:00 99.2 144 27 134/60 (84) 89 11/01/17 19:50 2 Nasal Cannula 3.00 11/01/17 19:40 25 11/01/17 19:00 90 Nasal Cannula 4.00 11/01/17 18:00 144 11/01/17 16:58 98.8 23 113/54 89 11/01/17 16:50 98.8 145 28 102/55 90 11/01/17 16:37 99.1 146 22 102/55 90 11/01/17 16:00 145 11/01/17 16:00 97.8 145 40 102/55 (71) 88 11/01/17 15:07 97.6 145 20 98/54 92 11/01/17 14:52 97.6 145 18 108/55 91 11/01/17 14:48 98.1 144 18 95/49 91 11/01/17 14:00 144 11/01/17 13:15 144 32 91/52 (65) 93 -: 11/02/17 0505 11/02/17 0505 Physical Exam General Appearance: Well Developed, Well Nourished, No Acute Distress, Comfortable Eyes Eye Exam: Sclera White Pulmonary Resp Exam: Clear Bilaterally, Breath Sounds Equal, No Distress Cardiology CV Exam: Regular, Normal Sinus Rhythm Gastrointestinal/Abdomen GI Exam: Soft, Non-Tender Genitourinary Exam: Clear Urine Integumentary Skin Exam: Clear, Warm Extremeties Extremities Exam: Moderate Edema Neurologic Neuro Exam: Awake, Speech Clear, Moving All Extremities Assessment/Plan Discussed Condition With: Patient, Spouse Problem List: (1) Acute renal failure ICD Codes: N17.9 - Acute kidney failure, unspecified Status: Acute Plan: Vascular surgery apparently has decided to defer a CTA but the patient will proceed with dialysis today to improve his volume status and azotemia. Patient is still very ill with guarded prognosis. If the patient continues to remain dialysis dependent will need to consider placement of a hemodialysis PermCath to replace the Vas-Cath prior to discharge. Serum kapa chain serum level well over 1500 at 5385.6 mg/L with kapa chains evident in the urine and proteinuria consisting of 100% monoclonal protein according to lab. 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 Medications should be adjusted for the patient's renal decline. Avoid nephrotoxic agents such as iodinated contrast dyes and NSAIDs. Avoid gadolinium. (2) Hypercalcemia ICD Codes: E83.52 - Hypercalcemia Status: Resolved (3) Retroperitoneal hematoma ICD Codes: K66.1 - Hemoperitoneum Status: Acute Plan: Vascular surgical note reviewed. CTA deferred for now. (4) Atrial fibrillation ICD Codes: I48.91 - Unspecified atrial fibrillation Plan: Management as per primary team (5) HTN (hypertension) ICD Codes: I10 - Essential (primary) hypertension Status: Chronic Juan Ramon Carlson MD Nov 02, 2017 13:04
[2017-11-02 14:09] LABS: HEMATOCRIT 28.6 % (39.0-51.0); HEMOGLOBIN 9.3 GM/DL (13.0-17.0)
[2017-11-02] MEDS ORDERED: MAGNESIUM SULFATE 1 GM PREMIX 100 ML IV SCH (14:45)
[2017-11-02] MEDS ORDERED: METOPROLOL TARTRATE 5 MG/5 ML VIAL IV PUSH PRN (14:45)
--- NOTE | 2017-11-02 14:45 | HHI.CCPN ---
Subjective Remarks/Hospital Course 10/23: Mr. Mcintosh is an 82-year-old male. He came in the hospital secondary to progressive anemia. Hemoglobin today is 6.9. He has a past history of bleed which was not found to be GI related. Additional findings today are acute renal failure and hypercalcemia. He recalls that he might have had some kidney disease in the past but cannot specify. Looking in our past records his highest creatinine value have been 3.5 but currently his creatinine levels at 5.11. She does not report being dehydrated. He has had a fracture approximately 3 months ago and has been on bedrest until recently for this. Additionally he is on Eliquis. Eliquis combined with his renal condition may be contributory to blood loss. Renal dysfunction can also be contributory to his hypercalcemia. Shortness of breath and weakness have been his primary complaints. Patient underwent bone marrow biopsy by interventional radiology on 10/23. Around 9 PM patient developed altered mental status with speech difficulty and questionable left-sided facial weakness. Stroke alert was called. Head CT done during stroke alert was negative for bleed. Dr. Saunders from neurology was contacted. Patient's blood pressure at that time was 218 systolic. She ordered a nicardipine drip and transferred patient to ICU with critical care consult. I evaluated patient following his arrival to the ICU. At that time patient appeared comfortable not in any acute distress. He was moving all 4 extremities at the time and was completely awake and alert and oriented. He did have some tremors in bilateral upper extremities however stated that he was feeling cold and shivering. 10/24: Patient did take his aspirin after talking to his last night. He did receive 0.5 mg Ativan last night for agitation and morphine around 4 AM for pain and subsequently this morning was noted to be lethargic. His O2 sats dropped and he was placed on nonrebreather facemask. His sats improved with IV Narcan however he was also getting hypothermic and bradycardic. I spoke with patient's at bedside as patient did not appear to be protecting his airway. I proceeded with endotracheal intubation and patient was placed on mechanical ventilation. He is awaiting MRI brain. 10/25 MRI brain negative. On propofol, performing sedation vacation and will proceed with SBT and extubate if able. 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 Creatinine 4.87. Initiating diuretic, discussed with Dr. Carlson. Transfusing 1 unit PRBC for Hgb 7.2 per hematology. On heparin drip. 10/26 Pathology now indicating MM. Was started on decadron yesterday by hematology. Was slow to wake up off propofol but was following commands yesterday evening on precedex drip. Propofol resumed overnight in view of some agitation and hypertension.. Would plan for CPAP trial and possible extubation today but will hold off on extubation for now as he may require Vascath placement for dialysis start. Will defer to nephrology, however creatinine continues uptrend and he is oliguric despite diuretic. 10/27 HD started yesterday. CPAP trial today and will extubate as tolerated. UOP 400 last 24 hours with diuretic. 10/28 Patient was extubated yesterday on 5L oxygen. s/p HD 10/27 with removal 2.5L 10/29 Patient s/p HD 10/28 with removal 3L. Received Restoril and Haldol overnight for agitation. Afebrile. Subjective: 10/31: RECONSULT NOTE: called by hospitalist physician for acute altered mental status. patient completely obtunded with disconjugate gaze, sbp 70s. while I was evaluating patient, he aroused and followed commands, appeared post-ictal. very acute change from prior. about 30 minutes prior to this episode, patient complained of severe abdominal pain to oncology PA. stat ABG demonstrated new drop of hgb by 1gm/dL from AM labs. taken down as stroke alert: head CT negative for acute bleed. discussed case with Dr. Schwarz- most likely seizure secondary to acute hypotensive episode. plan to load with [facility]. In addition, CT abd/pelvis done during stroke alert for new abdominal pain: large left psoas hematoma. discussed extensively with Dr. Ziyad Montes De Oca with IR- likely from venous origin and will stop with reversal of anticoagulation. immediately stopped heparin infusion and gave 50mg protamine. gave 2 units prbc emergent release blood as well as 2L crystalloid. BP responded. patient became more awake. repeat 4-hour non-contrasted CT abd/pelvis without evidence of hematoma expansion, and patient feels improved symptoms. 11/01 Reconsult hemodynamic instability: Patient was hypotensive today with [id number], tachycardic s/p HD today with removal 3L. CT abd/pelvis yesterday showed retroperitoneal hemorrhage Hgb dropped 7.4 from 9.5 yesterday receiving 1unit PRBC. On 2L oxygen. Awake and alert. Current MAP 74mmHg 11/02: hemodynamically stable. in 3:1 aflutter. hgb stable. HD planned for today. patient CAM+ and confused today. Objective Vital Signs Date Time Temp Pulse Resp B/P (MAP) Pulse Ox O2 Delivery O2 Flow Rate FiO2 11/02/17 12:00 97.9 140 19 133/63 (86) 92 11/02/17 10:06 Venturi Mask 6.00 40 Intake and Output 11/02/17 11/02/17 11/03/17 08:00 16:00 00:00 Intake Total 50 ml Output Total 50 ml Balance 0 ml Result Diagram: 11/02/17 1318 11/02/17 0505 Imaging Last Impressions Abdomen/Pelvis CT 10/31/17 1500 Signed Impressions: CONCLUSION: 1. Stable right retroperitoneal hemorrhage. 2. Stable effusions and bibasilar consolidation. 3. Cholelithiasis. Although the gallbladder is well-distended I see no pericho lecystic fluid or gallbladder wall thickening. If assessment of acute cholecyst itis is needed I would suggest an ultrasound. Head CT 10/31/17 0000 Signed Impressions: CONCLUSION: 1. Stable exam without evidence of acute infarct, hemorrhage, mass or edema. 2. No change compared to earlier study on 10/23 Chest X-Ray 10/26/17 0000 Signed Impressions: CONCLUSION: 1. Right central line in good position. No evidence of pneumothorax. 2. Bilateral infiltrates. Brain MRI 10/24/17 0600 Signed Impressions: CONCLUSION: Negative MR Brain non contrast. Neck Magnetic Resonance Angiography 10/24/17 0000 Signed Impressions: CONCLUSION: Normal study __ Percent stenosis is calculated using the diameter of the stenotic region over t he diameter of the normal distal internal carotid artery Head Magnetic Resonance Angiography 10/24/17 0000 Signed Impressions: CONCLUSION: Negative MRA Cow ([place]) non contrast. Cervical Spine MRI 10/24/17 0000 Signed Impressions: CONCLUSION: 1. 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 2. 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 3. Multilevel significant neural foraminal narrowing as detailed at each level in the above discussion. 4. Lesion involving the spinous process of T2. This is incompletely characteri zed on this exam. Consider CT scan to further assess. Bone Biopsy CT 10/23/17 0000 Signed Impressions: CONCLUSION: 1. Uncomplicated CT guided bone marrow aspirate. 2. Uncomplicated CT guided bone marrow biopsy. Bone Osseous Survey 10/20/17 0000 Signed Impressions: CONCLUSION: Ill-defined lucencies and patchy cortical thinning of multiple bones, primarily the long bones and especially the right tibia and fibula. Extensive multiple m yeloma could certainly have this appearance in the proper clinical setting. Renal Ultrasound 10/19/17 0000 Signed Impressions: CONCLUSION: 1. Negative renal sonogram. Objective Remarks Gen: Elderly obese male lying in bed lying in bed in NAD HEENT/ Neuro: RASS +1. follows commands. oriented only to person. confused. Chest/Pulm: equal chest rise. venti mask in place. clear to auscultation. CVS: tachycardic, regular rhythm. appears to be a 3:1 atrial flutter rhythm by telemetry GI/abdomen: soft, mild tenderness on palpation, mildly distended : Mathis in place with yellow urine in the Mathis Extremities: warm bilaterally, 1+ edema A/P Assessment and Plan 82 y/o male with Acute Encephalopathy- Resolved Acute agitated delirium Hemorrhagic shock- resolved Retroperitoneal hemorrhage Anemia secondary to acute blood loss History of atrial fibrillation Atrial flutter hypercalcemia acute renal failure. h/o MGUS now appears Multiple Myeloma chronic kidney disease hypothyroidism h/o colon cancer Plan: Neuro Acute encephalopathy Monitor neuro status- Awake and alert. -10/31 CT brain : No acute intracranial findings -10/31 EEG: Mild encephalopathy -MRA brain/ neck - no abnormality -MRI brain negative -MRI Cspine with degeneration C3/4 and C4/5 with cord edema. Neuro is following- Dr. Schwarz - PT consulted -ammonia level normal. delirium likely ICU delirium from critical illness. re-enforce day/night orientation. Cardiovascular: HTN AFIB 2gm mgso4 and lopressor 5mg iv for improved rate control. Monitor HR and BP keep MAP>65mmHg Echo showed EF 60-65%, normal LV diastolic function Hold BP meds for low BP . Pulmonary: Resp Insuff suspected NANCY. Continue with oxygen keep sats >92% Bronchodilators NIPPV PRN for resp distress GI/liver: Retroperitoneal hematoma/Hemorrhage Esophagitis History of colon cancer -Keep NPO -Dr. Velazquez: recommends non-operative management of retroperitoneal hematoma. 10/31 CT abd/pelvis 10/31 showed retroperitoneal hematoma 9.3x6.7x6.2 cm EGD 10/24LA class C esophagitis with NG trauma. Normal mucosa of stomach, duodenum. Continue PPI per GI recommendation Renal/: ZOFIA overlying CKD Light chain cast nephropathy Hypercalcemia , resolved -Received pamidronate for hypercalcemia per nephrology on 10/23. -R IJ vascath placed 10/26 plan for HD again today, per nephrology. -Nephrology following. Dr. Carlson [facility]: Plasma cell myeloma Chronic anticoagulation due to history of atrial fibrillation and lower extremity DVT -Being followed by oncology. Had known MGUS. - bone marrow biopsy 10/23 c/w myeloma -Off Decadron -Anticoagulation held for retroperitoneal hematoma -Transfused 1 unit packed red cells 10/25. -Will transfuse 2units PRBC, 1unit Cryo monitor H/H Q6 -Monitor CBC, coags , fibrinogen level. ID: -Pancultured ( Blood, sputum, Urine ) 10/24: NGTD Continue with abx (Zosyn)monitor for signs of infections ( Fever, WBC) Microbiology: 10/24urine culture negative 10/24 sputum culture negative. 10/24 blood culture no growth to date Endocrine: Hypothyroidism Continue Synthroid 75 mg p.o. daily on SSI fo glycemic control TSH normal 10/19 Prophylaxis: SCDs. PPI Lines: R IJ vascath placed 10/26 Fede Morton MD Nov 02, 2017 14:45
[2017-11-02] MEDS: MORPHINE SULFATE 4 MG/ML INJ IV PRN (18:14)
[2017-11-02 19:54] LABS: HEMATOCRIT 27.2 % (39.0-51.0); HEMOGLOBIN 9.1 GM/DL (13.0-17.0)
[2017-11-02] MEDS: cloNIDine HCL 0.1 MG TAB PO PRN (20:22)
[2017-11-02] MEDS: GENTAMICIN SULFATE 20 MG/2 ML VIAL OTHER PRN (21:44)
[2017-11-02] MEDS: SODIUM CHLOR 0.9% 1000 ML INJ 1,000 ML OTHER PRN (21:46)
[2017-11-03] VITALS (14 sets, daily range): BP systolic 132–169; BP diastolic 70–84; PULSE 91–143; RESP 15–33; TEMP 98.2–99.6; O2SAT 92–97
[2017-11-03] MEDS: PANTOPRAZOLE SODIUM 40 MG VIAL IV PUSH SCH ×3 (00:21→21:23)
[2017-11-03 01:08] LABS: HEMATOCRIT 26.7 % (39.0-51.0)
[2017-11-03] MEDS: INSULIN ASPART SUPPLEMENTAL SCALE SQ SCH ×4 (02:00→20:00)
[2017-11-03] MEDS: PIPERACIL-TAZO 2.25 GM PREMIX 50 ML IV SCH ×2 (02:23→10:07)
[2017-11-03] MEDS: LEVOTHYROXINE SODIUM 75 MCG TAB PO SCH (05:28)
[2017-11-03 06:25] LABS: AUTOMATED NEUTROPHIL # 11.8 TH/MM3 (1.8-7.7); BASOPHIL % 0.2 % (0.0-2.0); EOSINOPHIL # 0.1 TH/MM3 (0-0.4); EOSINOPHIL % 0.9 % (0.0-4.0); HEMOGLOBIN 8.9 GM/DL (13.0-17.0); LYMPH % 2.2 % (9.0-44.0); LYMPHOCYTE # 0.3 TH/MM3 (1.0-4.8); MEAN CELL VOLUME 86.4 FL (80.0-100.0); MEAN CORPUSCULAR HEMOGLOBIN 28.5 PG (27.0-34.0); MEAN PLATELET VOLUME 7.9 FL (7.0-11.0); MONO % 3.4 % (0.0-8.0); MONOCYTE # 0.4 TH/MM3 (0-0.9); NEUT % 93.3 % (16.0-70.0); PLATELET COUNT 138 TH/MM3 (150-450); RED BLOOD COUNT 3.13 MIL/MM3 (4.50-5.90); RED CELL DISTRIBUTION WIDTH 15.5 % (11.6-17.2); WHITE BLOOD COUNT 12.7 TH/MM3 (4.0-11.0)
[2017-11-03 06:45] LABS: ALKALINE PHOSPHATASE 75 U/L (45-117); TOTAL BILIRUBIN ADULT 1.3 MG/DL (0.2-1.0); TOTAL PROTEIN 5.9 GM/DL (6.4-8.2)
[2017-11-03 07:20] LABS: ALBUMIN 2.4 GM/DL (3.4-5.0); ALT (GPT) 147 U/L (12-78); AST (GOT) 90 U/L (15-37); BICARBONATE 25.7 MEQ/L (21.0-32.0); BLOOD UREA NITROGEN 34 MG/DL (7-18); CALCIUM 7.6 MG/DL (8.5-10.1); CHLORIDE 101 MEQ/L (98-107); CREATININE 3.67 MG/DL (0.60-1.30); GLOMERULAR FILTRATION RATE 16 ML/MIN (>89); GLUCOSE,RANDOM 96 MG/DL (74-106); SODIUM (NA) 139 MEQ/L (136-145)
[2017-11-03 07:31] LABS: BANDS 1 % (0-6); CORRECTED NUCLEATED RBC 3 /100 WBC (0-0); LYMPHOCYTES 3 % (9-44); MONOCYTES 1 % (0-8); NEUTROPHIL # MANUAL DIFF 12.1 TH/MM3 (1.8-7.7); NUCLEATED RED BLOOD CELL 3 (0-0); POLYS (SEG NEUTROPHILS) 94 % (16-70)
[2017-11-03] MEDS ORDERED: POTASSIUM CHLOR 20 MEQ PREMIX 100 ML IV ONE (08:00)
[2017-11-03] MEDS ORDERED: POTASSIUM CHLORIDE 25 MEQ EFFERVESCENT TAB PO ONE (08:00)
[2017-11-03] MEDS ORDERED: METOPROLOL TARTRATE 5 MG/5 ML VIAL IV PUSH ONE (08:00)
[2017-11-03] MEDS: CHLORHEXIDINE 0.12% (ORAL KIT) 15 ML CUP MT SCH ×2 (08:00→20:00)
[2017-11-03] MEDS: MAGNESIUM SULFATE 1 GM PREMIX 100 ML IV SCH ×2 (08:23→11:21)
[2017-11-03] MEDS: CHOLECALCIFEROL (VIT D3) 1000 UNIT TAB PO SCH (08:24)
[2017-11-03] MEDS: SODIUM CHLORIDE 0.9% FLUSH 10 ML FLUSH IV FLUSH SCH ×2 (08:24→21:22)
[2017-11-03] MEDS: MULTIVITAMIN TAB PO SCH (08:24)
[2017-11-03] MEDS: DOCUSATE SODIUM 100 MG CAP PO SCH ×2 (08:24→21:23)
[2017-11-03] MEDS: DILTIAZEM HCL 60 MG TAB PO SCH ×3 (08:25→21:21)
[2017-11-03] MEDS: HYDROmorphone HCL PF 2 MG/ML VIAL IV PUSH PRN (10:09)
--- NOTE | 2017-11-03 10:56 | HHI.CCPN ---
Subjective Remarks/Hospital Course 10/23: Mr. Mcintosh is an 82-year-old male. He came in the hospital secondary to progressive anemia. Hemoglobin today is 6.9. He has a past history of bleed which was not found to be GI related. Additional findings today are acute renal failure and hypercalcemia. He recalls that he might have had some kidney disease in the past but cannot specify. Looking in our past records his highest creatinine value have been 3.5 but currently his creatinine levels at 5.11. She does not report being dehydrated. He has had a fracture approximately 3 months ago and has been on bedrest until recently for this. Additionally he is on Eliquis. Eliquis combined with his renal condition may be contributory to blood loss. Renal dysfunction can also be contributory to his hypercalcemia. Shortness of breath and weakness have been his primary complaints. Patient underwent bone marrow biopsy by interventional radiology on 10/23. Around 9 PM patient developed altered mental status with speech difficulty and questionable left-sided facial weakness. Stroke alert was called. Head CT done during stroke alert was negative for bleed. Dr. Saunders from neurology was contacted. Patient's blood pressure at that time was 218 systolic. She ordered a nicardipine drip and transferred patient to ICU with critical care consult. I evaluated patient following his arrival to the ICU. At that time patient appeared comfortable not in any acute distress. He was moving all 4 extremities at the time and was completely awake and alert and oriented. He did have some tremors in bilateral upper extremities however stated that he was feeling cold and shivering. 10/24: Patient did take his aspirin after talking to his last night. He did receive 0.5 mg Ativan last night for agitation and morphine around 4 AM for pain and subsequently this morning was noted to be lethargic. His O2 sats dropped and he was placed on nonrebreather facemask. His sats improved with IV Narcan however he was also getting hypothermic and bradycardic. I spoke with patient's at bedside as patient did not appear to be protecting his airway. I proceeded with endotracheal intubation and patient was placed on mechanical ventilation. He is awaiting MRI brain. 10/25 MRI brain negative. On propofol, performing sedation vacation and will proceed with SBT and extubate if able. 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 Creatinine 4.87. Initiating diuretic, discussed with Dr. Carlson. Transfusing 1 unit PRBC for Hgb 7.2 per hematology. On heparin drip. 10/26 Pathology now indicating MM. Was started on decadron yesterday by hematology. Was slow to wake up off propofol but was following commands yesterday evening on precedex drip. Propofol resumed overnight in view of some agitation and hypertension.. Would plan for CPAP trial and possible extubation today but will hold off on extubation for now as he may require Vascath placement for dialysis start. Will defer to nephrology, however creatinine continues uptrend and he is oliguric despite diuretic. 10/27 HD started yesterday. CPAP trial today and will extubate as tolerated. UOP 400 last 24 hours with diuretic. 10/28 Patient was extubated yesterday on 5L oxygen. s/p HD 10/27 with removal 2.5L 10/29 Patient s/p HD 10/28 with removal 3L. Received Restoril and Haldol overnight for agitation. Afebrile. Subjective: 10/31: RECONSULT NOTE: called by hospitalist physician for acute altered mental status. patient completely obtunded with disconjugate gaze, sbp 70s. while I was evaluating patient, he aroused and followed commands, appeared post-ictal. very acute change from prior. about 30 minutes prior to this episode, patient complained of severe abdominal pain to oncology PA. stat ABG demonstrated new drop of hgb by 1gm/dL from AM labs. taken down as stroke alert: head CT negative for acute bleed. discussed case with Dr. Schwarz- most likely seizure secondary to acute hypotensive episode. plan to load with [facility]. In addition, CT abd/pelvis done during stroke alert for new abdominal pain: large left psoas hematoma. discussed extensively with Dr. Ziyad Montes De Oca with IR- likely from venous origin and will stop with reversal of anticoagulation. immediately stopped heparin infusion and gave 50mg protamine. gave 2 units prbc emergent release blood as well as 2L crystalloid. BP responded. patient became more awake. repeat 4-hour non-contrasted CT abd/pelvis without evidence of hematoma expansion, and patient feels improved symptoms. 11/01 Reconsult hemodynamic instability: Patient was hypotensive today with [id number], tachycardic s/p HD today with removal 3L. CT abd/pelvis yesterday showed retroperitoneal hemorrhage Hgb dropped 7.4 from 9.5 yesterday receiving 1unit PRBC. On 2L oxygen. Awake and alert. Current MAP 74mmHg 11/02: hemodynamically stable. in 3:1 aflutter. hgb stable. HD planned for today. patient CAM+ and confused today. 11/03: aflutter persists. tachycardic. hgb stable. less confused today. I remained at bedside and gave 15mg lopressor which improved HR to 110s. Objective Vital Signs Date Time Temp Pulse Resp B/P (MAP) Pulse Ox O2 Delivery O2 Flow Rate FiO2 11/03/17 10:00 103 11/03/17 08:02 97 Nasal Cannula 4.00 11/03/17 08:00 99.6 17 145/70 (95) 11/02/17 10:06 40 Intake and Output 11/03/17 11/03/17 11/03/17 07:59 15:59 23:59 Intake Total 50 ml Output Total 50 ml Balance 0 ml Result Diagram: 11/03/17 0552 11/03/17 0552 Imaging Last Impressions Abdomen/Pelvis CT 10/31/17 1500 Signed Impressions: CONCLUSION: 1. Stable right retroperitoneal hemorrhage. 2. Stable effusions and bibasilar consolidation. 3. Cholelithiasis. Although the gallbladder is well-distended I see no pericho lecystic fluid or gallbladder wall thickening. If assessment of acute cholecyst itis is needed I would suggest an ultrasound. Head CT 10/31/17 0000 Signed Impressions: CONCLUSION: 1. Stable exam without evidence of acute infarct, hemorrhage, mass or edema. 2. No change compared to earlier study on 10/23 Chest X-Ray 10/26/17 0000 Signed Impressions: CONCLUSION: 1. Right central line in good position. No evidence of pneumothorax. 2. Bilateral infiltrates. Brain MRI 10/24/17 0600 Signed Impressions: CONCLUSION: Negative MR Brain non contrast. Neck Magnetic Resonance Angiography 10/24/17 0000 Signed Impressions: CONCLUSION: Normal study __ Percent stenosis is calculated using the diameter of the stenotic region over t he diameter of the normal distal internal carotid artery Head Magnetic Resonance Angiography 10/24/17 Signed Impressions: CONCLUSION: Negative MRA Cow ([place]) non contrast. Cervical Spine MRI 10/24/17 Signed Impressions: CONCLUSION: 1. 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 2. 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 3. Multilevel significant neural foraminal narrowing as detailed at each level in the above discussion. 4. Lesion involving the spinous process of T2. This is incompletely characteri zed on this exam. Consider CT scan to further assess. Bone Biopsy CT 10/23/17 Signed Impressions: CONCLUSION: 1. Uncomplicated CT guided bone marrow aspirate. 2. Uncomplicated CT guided bone marrow biopsy. Bone Osseous Survey 10/20/17 Signed Impressions: CONCLUSION: Ill-defined lucencies and patchy cortical thinning of multiple bones, primarily the long bones and especially the right tibia and fibula. Extensive multiple m yeloma could certainly have this appearance in the proper clinical setting. Renal Ultrasound 10/19/17 Signed Impressions: CONCLUSION: 1. Negative renal sonogram. Objective Remarks Gen: Elderly obese male lying in bed lying in bed in NAD HEENT/ Neuro: RASS 0. follows commands. Chest/Pulm: equal chest rise. venti mask in place. clear to auscultation. CVS: tachycardic, regular rhythm. appears to be atrial flutter rhythm by telemetry GI/abdomen: soft, mild tenderness on palpation, mildly distended : Mathis in place with yellow urine in the Mathis Extremities: warm bilaterally, 1+ edema A/P Assessment and Plan 82 y/o male with Acute Encephalopathy- Resolved Acute agitated delirium Hemorrhagic shock- resolved Retroperitoneal hemorrhage Anemia secondary to acute blood loss History of atrial fibrillation Atrial flutter hypercalcemia acute renal failure. h/o MGUS now appears Multiple Myeloma chronic kidney disease hypothyroidism h/o colon cancer Plan: Neuro Acute encephalopathy Monitor neuro status- Awake and alert. -10/31 CT brain : No acute intracranial findings -10/31 EEG: Mild encephalopathy -MRA brain/ neck - no abnormality -MRI brain negative -MRI Cspine with degeneration C3/4 and C4/5 with cord edema. Neuro is following- Dr. Schwarz - PT consulted -ammonia level normal. delirium likely ICU delirium from critical illness. re-enforce day/night orientation. somewhat improved today Cardiovascular: HTN AFIB 2gm mgso4 and lopressor 15mg iv for improved rate control. restart cardizem 60mg po q6h lopressor prn. Monitor HR and BP keep MAP>65mmHg Echo showed EF 60-65%, normal LV diastolic function Hold BP meds for low BP . Pulmonary: Resp Insuff suspected NANCY. Continue with oxygen keep sats >92% Bronchodilators NIPPV PRN for resp distress GI/liver: Retroperitoneal hematoma/Hemorrhage Esophagitis History of colon cancer -Dr. Velazquez: recommends non-operative management of retroperitoneal hematoma. 10/31 CT abd/pelvis 10/31 showed retroperitoneal hematoma 9.3x6.7x6.2 cm EGD 10/24LA class C esophagitis with NG trauma. Normal mucosa of stomach, duodenum. Continue PPI per GI recommendation Renal/: ZOFIA overlying CKD Light chain cast nephropathy Hypercalcemia , resolved -Received pamidronate for hypercalcemia per nephrology on 10/23. -R IJ vascath placed 10/26 plan for HD again today, per nephrology. -Nephrology following. Dr. Carlson [facility]: Plasma cell myeloma Chronic anticoagulation due to history of atrial fibrillation and lower extremity DVT -Being followed by oncology. Had known MGUS. - bone marrow biopsy 10/23 c/w myeloma -Off Decadron -Anticoagulation held for retroperitoneal hematoma -Transfused 1 unit packed red cells 10/25. -Will transfuse 2units PRBC, 1unit Cryo monitor H/H Q6 -Monitor CBC, coags , fibrinogen level. ID: -Pancultured ( Blood, sputum, Urine ) 10/24: NGTD completed 9 days of zosyn. d/c. re-culture for fever. Microbiology: 10/24urine culture negative 10/24 sputum culture negative. 10/24 blood culture no growth to date Endocrine: Hypothyroidism Continue Synthroid 75 mg p.o. daily on SSI fo glycemic control TSH normal 10/19 Prophylaxis: SCDs. PPI Lines: R IJ vascath placed 10/26 Fede Morton MD Nov 03, 2017 10:56
[2017-11-03] MEDS: METOPROLOL TARTRATE 5 MG/5 ML VIAL IV PUSH PRN ×7 (11:23→18:19)
--- NOTE | 2017-11-03 11:34 | PD.CAR.PN ---
CVT Progress Note Subjective/Hospital Course: 11/02/2017 Patient with hypercoagulable state multiple coagulation issues related to various pathologic processes and iatrogenic anticoagulation developed large psoas hematoma in the right posterior rectus sheath hematoma. Patient is now stable left and transfusion of blood and blood products and clinically he is not bleeding This is contained hemorrhage and should resolve on its own Abdomen is soft hypoactive bowel sounds somewhat tender in the right hemiabdomen but no rebound or guarding is noted Patient looks much better today by overall picture Nothing to add to care at this time I do not believe that repeat CT scan will add anything to diagnosis or management. 11/03/2017 Hemoglobin remains stable There is no issue with the bleeding from the psoas or rectus muscle at this time Nothing to add from vascular point I will sign off at this time and if any other assistance needed please reconsult Objective: Vital Signs Date Time Temp Pulse Resp B/P (MAP) Pulse Ox O2 Delivery O2 Flow Rate FiO2 11/03/17 10:00 103 11/03/17 08:02 97 Nasal Cannula 4.00 11/03/17 08:00 99.6 102 17 145/70 (95) 96 11/03/17 08:00 102 11/03/17 07:00 95 Nasal Cannula 4.00 11/03/17 06:00 141 11/03/17 04:00 143 11/03/17 04:00 99.2 143 17 132/74 (93) 94 11/03/17 02:00 143 11/03/17 00:00 141 11/03/17 00:00 99.5 141 33 142/84 (103) 96 11/02/17 22:00 141 11/02/17 20:13 97 Nasal Cannula 4.00 11/02/17 20:00 102 11/02/17 20:00 99.8 102 37 202/94 (130) 97 11/02/17 19:00 92 Nasal Cannula 5.00 11/02/17 16:00 99.8 114 16 165/76 (105) 11/02/17 12:00 97.9 140 19 133/63 (86) 92 Labs: Laboratory Tests Test 11/03/17 00:51 11/03/17 05:52 Hemoglobin 9.0 GM/DL (13.0-17.0) 8.9 GM/DL (13.0-17.0) Hematocrit 26.7 % (39.0-51.0) 27.0 % (39.0-51.0) White Blood Count 12.7 TH/MM3 (4.0-11.0) Red Blood Count 3.13 MIL/MM3 (4.50-5.90) Mean Corpuscular Volume 86.4 FL (80.0-100.0) Mean Corpuscular Hemoglobin 28.5 PG (27.0-34.0) Mean Corpuscular Hemoglobin Concent 33.0 % (32.0-36.0) Red Cell Distribution Width 15.5 % (11.6-17.2) Platelet Count 138 TH/MM3 (150-450) Mean Platelet Volume 7.9 FL (7.0-11.0) Neutrophils (%) (Auto) 93.3 % (16.0-70.0) Lymphocytes (%) (Auto) 2.2 % (9.0-44.0) Monocytes (%) (Auto) 3.4 % (0.0-8.0) Eosinophils (%) (Auto) 0.9 % (0.0-4.0) Basophils (%) (Auto) 0.2 % (0.0-2.0) Neutrophils # (Auto) 11.8 TH/MM3 (1.8-7.7) Lymphocytes # (Auto) 0.3 TH/MM3 (1.0-4.8) Monocytes # (Auto) 0.4 TH/MM3 (0-0.9) Eosinophils # (Auto) 0.1 TH/MM3 (0-0.4) Basophils # (Auto) 0.0 TH/MM3 (0-0.2) CBC Comment AUTO DIFF Differential Total Cells Counted 100 Neutrophils % (Manual) 94 % (16-70) Band Neutrophils % 1 % (0-6) Lymphocytes % 3 % (9-44) Monocytes % 1 % (0-8) Eosinophils % 1 % (0-4) Neutrophils # (Manual) 12.1 TH/MM3 (1.8-7.7) Nucleated Red Blood Cells 3 /100 WBC (0-0) Differential Comment FINAL DIFF MANUAL Platelet Estimate LOW (NORMAL) Platelet Morphology Comment NORMAL (NORMAL) Blood Urea Nitrogen 34 MG/DL (7-18) Creatinine 3.67 MG/DL (0.60-1.30) Random Glucose 96 MG/DL (74-106) Total Protein 5.9 GM/DL (6.4-8.2) Albumin 2.4 GM/DL (3.4-5.0) Calcium Level 7.6 MG/DL (8.5-10.1) Alkaline Phosphatase 75 U/L (45-117) Aspartate Amino Transf (AST/SGOT) 90 U/L (15-37) Alanine Aminotransferase (ALT/SGPT) 147 U/L (12-78) Total Bilirubin 1.3 MG/DL (0.2-1.0) Sodium Level 139 MEQ/L (136-145) Potassium Level 3.6 MEQ/L (3.5-5.1) Chloride Level 101 MEQ/L (98-107) Carbon Dioxide Level 25.7 MEQ/L (21.0-32.0) Anion Gap 12 MEQ/L (5-15) Estimat Glomerular Filtration Rate 16 ML/MIN (>89) Result Diagram: 11/03/17 0552 11/03/17 0552 Kennedi Costa MD Nov 03, 2017 11:34
--- NOTE | 2017-11-03 12:27 | HHI.NPPN ---
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 He has been having some fatigue and weakness over the past few weeks and a CBC showed a Hgb of 7.2 prompting evaluation at the hospital. The patient's is the primary historian. Was admitted here in Jun for a L femur fx that he sustained at home while turning while moving TV tray causing a twist and fall type injury on his left leg. reports spiral fracture of his left femur that he underwent ORIF. He subsequently developed a DVT in the same leg. Renal functions during that admission were overall normal with SCr at 0.8 baseline. Serum calcium normal at this admission at 8.6-9.0. In August, he developed A fib with RVR and had acute renal insufficiency though nephrology services were not called as his functions improved with correction of RVR (admitting SCr 2.40 on 08/29 and discharge on 09/01 at 1.74). Noted mild hypercalcemia during this admission at 10.7. 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 Byrne, but was many years ago as per the . Says that he never underwent bone marrow bx, but had multiple labs that "didn't change" so they opted to stop following up. Given his recent anemia, his PCP did refer him to Dr. Jordyn Garcia, but appointment not until November. No known CKD hx. Denies any recent NVD No NSAID use No recent abx. Besides the aforementioned health history as of recent, he has been in his usual state of health as per his . Has been on Calcium 600mg with 500IU Vitamin D, with an additional Vitamin D3 1000IU daily since his femur fx. Admitting SCr 2.11 that has improved to 4.47 at consult. Serum CCa 12.9 at admission Interval History Patient appears somewhat more alert today. Family by bedside. Patient with no verbal complaints. Review of Systems General Constitutional: Fatigue Objective Data Data Vital Signs Date Time Temp Pulse Resp B/P (MAP) Pulse Ox O2 Delivery O2 Flow Rate FiO2 11/03/17 10:00 103 11/03/17 08:02 97 Nasal Cannula 4.00 11/03/17 08:00 99.6 102 17 145/70 (95) 96 11/03/17 08:00 102 11/03/17 07:00 95 Nasal Cannula 4.00 11/03/17 06:00 141 11/03/17 04:00 143 11/03/17 04:00 99.2 143 17 132/74 (93) 94 11/03/17 02:00 143 11/03/17 00:00 141 11/03/17 00:00 99.5 141 33 142/84 (103) 96 11/02/17 22:00 141 11/02/17 20:13 97 Nasal Cannula 4.00 11/02/17 20:00 102 11/02/17 20:00 99.8 102 37 202/94 (130) 97 11/02/17 19:00 92 Nasal Cannula 5.00 11/02/17 16:00 99.8 114 16 165/76 (105) -: 11/03/17 0552 11/03/17 0552 Physical Exam General Appearance: Well Developed, Well Nourished, No Acute Distress, Comfortable Eyes Eye Exam: Sclera White Pulmonary Resp Exam: Clear Bilaterally, Breath Sounds Equal, No Distress Cardiology CV Exam: Regular, Normal Sinus Rhythm Gastrointestinal/Abdomen GI Exam: Soft, Non-Tender Genitourinary Exam: Clear Urine Integumentary Skin Exam: Clear, Warm Extremeties Extremities Exam: Moderate Edema Neurologic Neuro Exam: Awake, Speech Clear, Moving All Extremities Assessment/Plan Discussed Condition With: Patient, Spouse Problem List: (1) Acute renal failure ICD Codes: N17.9 - Acute kidney failure, unspecified Status: Acute Plan: Vascular surgery has signed off and the patient appears to have stabilized hemodynamically. Volume status improved with dialysis yesterday. We will plan for another dialysis session tomorrow. Patient is still very ill with guarded prognosis. If the patient continues to remain dialysis dependent will need to consider placement of a hemodialysis PermCath to replace the Vas-Cath prior to discharge. Serum kapa chain serum level well over 1500 at 5385.6 mg/L with kapa chains evident in the urine and proteinuria consisting of 100% monoclonal protein according to lab. 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 Medications should be adjusted for the patient's renal decline. Avoid nephrotoxic agents such as iodinated contrast dyes and NSAIDs. Avoid gadolinium. (2) Hypercalcemia ICD Codes: E83.52 - Hypercalcemia Status: Resolved (3) Retroperitoneal hematoma ICD Codes: K66.1 - Hemoperitoneum Status: Acute Plan: Vascular surgical note reviewed. CTA deferred for now. (4) Atrial fibrillation ICD Codes: I48.91 - Unspecified atrial fibrillation Plan: Management as per primary team (5) HTN (hypertension) ICD Codes: I10 - Essential (primary) hypertension Status: Chronic Juan Ramon Carlson MD Nov 03, 2017 12:26
[2017-11-04] VITALS (15 sets, daily range): BP systolic 127–168; BP diastolic 61–86; PULSE 90–144; RESP 22–29; TEMP 98.2–98.7; O2SAT 90–95
[2017-11-04] MEDS: DILTIAZEM HCL 60 MG TAB PO SCH ×4 (01:55→20:53)
[2017-11-04] MEDS: METOPROLOL TARTRATE 5 MG/5 ML VIAL IV PUSH PRN ×5 (01:56→23:05)
[2017-11-04] MEDS: INSULIN ASPART SUPPLEMENTAL SCALE SQ SCH ×4 (02:00→20:53)
[2017-11-04] MEDS: LEVOTHYROXINE SODIUM 75 MCG TAB PO SCH (05:50)
[2017-11-04 07:35] LABS: AUTOMATED NEUTROPHIL # 9.2 TH/MM3 (1.8-7.7); BASOPHIL % 0.2 % (0.0-2.0); EOSINOPHIL # 0.3 TH/MM3 (0-0.4); EOSINOPHIL % 2.8 % (0.0-4.0); HEMATOCRIT 25.9 % (39.0-51.0); HEMOGLOBIN 8.7 GM/DL (13.0-17.0); LYMPH % 3.5 % (9.0-44.0); LYMPHOCYTE # 0.4 TH/MM3 (1.0-4.8); MEAN CELL VOLUME 85.2 FL (80.0-100.0); MEAN CORPUSCULAR HEMOGLOBIN 28.7 PG (27.0-34.0); MEAN CORPUSCULAR HGB CONC 33.7 % (32.0-36.0); MEAN PLATELET VOLUME 8.1 FL (7.0-11.0); MONO % 3.3 % (0.0-8.0); MONOCYTE # 0.3 TH/MM3 (0-0.9); NEUT % 90.2 % (16.0-70.0); PLATELET COUNT 154 TH/MM3 (150-450); RED BLOOD COUNT 3.04 MIL/MM3 (4.50-5.90); RED CELL DISTRIBUTION WIDTH 15.5 % (11.6-17.2); WHITE BLOOD COUNT 10.2 TH/MM3 (4.0-11.0)
--- NOTE | 2017-11-04 07:47 | HHI.CCPN ---
Subjective Remarks/Hospital Course 10/23: Mr. Mcintosh is an 82-year-old male. He came in the hospital secondary to progressive anemia. Hemoglobin today is 6.9. He has a past history of bleed which was not found to be GI related. Additional findings today are acute renal failure and hypercalcemia. He recalls that he might have had some kidney disease in the past but cannot specify. Looking in our past records his highest creatinine value have been 3.5 but currently his creatinine levels at 5.11. She does not report being dehydrated. He has had a fracture approximately 3 months ago and has been on bedrest until recently for this. Additionally he is on Eliquis. Eliquis combined with his renal condition may be contributory to blood loss. Renal dysfunction can also be contributory to his hypercalcemia. Shortness of breath and weakness have been his primary complaints. Patient underwent bone marrow biopsy by interventional radiology on 10/23. Around 9 PM patient developed altered mental status with speech difficulty and questionable left-sided facial weakness. Stroke alert was called. Head CT done during stroke alert was negative for bleed. Dr. Saunders from neurology was contacted. Patient's blood pressure at that time was 218 systolic. She ordered a nicardipine drip and transferred patient to ICU with critical care consult. I evaluated patient following his arrival to the ICU. At that time patient appeared comfortable not in any acute distress. He was moving all 4 extremities at the time and was completely awake and alert and oriented. He did have some tremors in bilateral upper extremities however stated that he was feeling cold and shivering. 10/24: Patient did take his aspirin after talking to his last night. He did receive 0.5 mg Ativan last night for agitation and morphine around 4 AM for pain and subsequently this morning was noted to be lethargic. His O2 sats dropped and he was placed on nonrebreather facemask. His sats improved with IV Narcan however he was also getting hypothermic and bradycardic. I spoke with patient's at bedside as patient did not appear to be protecting his airway. I proceeded with endotracheal intubation and patient was placed on mechanical ventilation. He is awaiting MRI brain. 10/25 MRI brain negative. On propofol, performing sedation vacation and will proceed with SBT and extubate if able. 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 Creatinine 4.87. Initiating diuretic, discussed with Dr. Carlson. Transfusing 1 unit PRBC for Hgb 7.2 per hematology. On heparin drip. 10/26 Pathology now indicating MM. Was started on decadron yesterday by hematology. Was slow to wake up off propofol but was following commands yesterday evening on precedex drip. Propofol resumed overnight in view of some agitation and hypertension.. Would plan for CPAP trial and possible extubation today but will hold off on extubation for now as he may require Vascath placement for dialysis start. Will defer to nephrology, however creatinine continues uptrend and he is oliguric despite diuretic. 10/27 HD started yesterday. CPAP trial today and will extubate as tolerated. UOP 400 last 24 hours with diuretic. 10/28 Patient was extubated yesterday on 5L oxygen. s/p HD 10/27 with removal 2.5L 10/29 Patient s/p HD 10/28 with removal 3L. Received Restoril and Haldol overnight for agitation. Afebrile. Subjective: 10/31: RECONSULT NOTE: called by hospitalist physician for acute altered mental status. patient completely obtunded with disconjugate gaze, sbp 70s. while I was evaluating patient, he aroused and followed commands, appeared post-ictal. very acute change from prior. about 30 minutes prior to this episode, patient complained of severe abdominal pain to oncology PA. stat ABG demonstrated new drop of hgb by 1gm/dL from AM labs. taken down as stroke alert: head CT negative for acute bleed. discussed case with Dr. Schwarz- most likely seizure secondary to acute hypotensive episode. plan to load with [facility]. In addition, CT abd/pelvis done during stroke alert for new abdominal pain: large left psoas hematoma. discussed extensively with Dr. Ziyad Montes De Oca with IR- likely from venous origin and will stop with reversal of anticoagulation. immediately stopped heparin infusion and gave 50mg protamine. gave 2 units prbc emergent release blood as well as 2L crystalloid. BP responded. patient became more awake. repeat 4-hour non-contrasted CT abd/pelvis without evidence of hematoma expansion, and patient feels improved symptoms. 11/01 Reconsult hemodynamic instability: Patient was hypotensive today with [id number], tachycardic s/p HD today with removal 3L. CT abd/pelvis yesterday showed retroperitoneal hemorrhage Hgb dropped 7.4 from 9.5 yesterday receiving 1unit PRBC. On 2L oxygen. Awake and alert. Current MAP 74mmHg 11/02: hemodynamically stable. in 3:1 aflutter. hgb stable. HD planned for today. patient CAM+ and confused today. 11/03: aflutter persists. tachycardic. hgb stable. less confused today. I remained at bedside and gave 15mg Lopressor which improved HR to 110s. 11/04 Patient is awake, alert lying in bed in NAD. For HD today, hypertensive. Objective Vital Signs Date Time Temp Pulse Resp B/P (MAP) Pulse Ox O2 Delivery O2 Flow Rate FiO2 11/04/17 06:00 101 11/04/17 04:00 98.3 26 168/77 (107) 91 11/03/17 20:30 Nasal Cannula 4.00 11/02/17 10:06 40 Intake and Output 11/04/17 11/04/17 11/05/17 08:00 16:00 00:00 Intake Total 360 ml Output Total 75 ml Balance 285 ml Result Diagram: 11/04/17 0647 11/03/17 0552 Other Results Laboratory Tests Test 11/04/17 06:47 Red Blood Count 3.04 MIL/MM3 Hemoglobin 8.7 GM/DL Hematocrit 25.9 % Neutrophils (%) (Auto) 90.2 % Lymphocytes (%) (Auto) 3.5 % Neutrophils # (Auto) 9.2 TH/MM3 Lymphocytes # (Auto) 0.4 TH/MM3 Imaging Last Impressions Abdomen/Pelvis CT 10/31/17 1500 Signed Impressions: CONCLUSION: 1. Stable right retroperitoneal hemorrhage. 2. Stable effusions and bibasilar consolidation. 3. Cholelithiasis. Although the gallbladder is well-distended I see no pericho lecystic fluid or gallbladder wall thickening. If assessment of acute cholecyst itis is needed I would suggest an ultrasound. Head CT 10/31/17 0000 Signed Impressions: CONCLUSION: 1. Stable exam without evidence of acute infarct, hemorrhage, mass or edema. 2. No change compared to earlier study on 10/23 Chest X-Ray 10/26/17 0000 Signed Impressions: CONCLUSION: 1. Right central line in good position. No evidence of pneumothorax. 2. Bilateral infiltrates. Brain MRI 10/24/17 0600 Signed Impressions: CONCLUSION: Negative MR Brain non contrast. Neck Magnetic Resonance Angiography 10/24/17 Signed Impressions: CONCLUSION: Normal study __ Percent stenosis is calculated using the diameter of the stenotic region over t he diameter of the normal distal internal carotid artery Head Magnetic Resonance Angiography 10/24/17 Signed Impressions: CONCLUSION: Negative MRA Cow (Section of Matos) non contrast. Cervical Spine MRI 10/24/17 Signed Impressions: CONCLUSION: 1. 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 2. 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 3. Multilevel significant neural foraminal narrowing as detailed at each level in the above discussion. 4. Lesion involving the spinous process of T2. This is incompletely characteri zed on this exam. Consider CT scan to further assess. Bone Biopsy CT 10/23/17 Signed Impressions: CONCLUSION: 1. Uncomplicated CT guided bone marrow aspirate. 2. Uncomplicated CT guided bone marrow biopsy. Bone Osseous Survey 10/20/17 Signed Impressions: CONCLUSION: Ill-defined lucencies and patchy cortical thinning of multiple bones, primarily the long bones and especially the right tibia and fibula. Extensive multiple m yeloma could certainly have this appearance in the proper clinical setting. Renal Ultrasound 10/19/17 Signed Impressions: CONCLUSION: 1. Negative renal sonogram. Objective Remarks Gen: Elderly obese male lying in bed lying in bed in NAD HEENT/ Neuro: RASS 0. follows commands. Chest/Pulm: equal chest rise. venti mask in place. clear to auscultation. CVS: tachycardic, regular rhythm. appears to be atrial flutter rhythm by telemetry GI/abdomen: soft, mild tenderness on palpation, mildly distended : Mathis in place with yellow urine in the Mathis Extremities: warm bilaterally, 1+ edema A/P Assessment and Plan 82 y/o male with Acute Encephalopathy- Resolved Acute agitated delirium Hemorrhagic shock- resolved Retroperitoneal hemorrhage Anemia secondary to acute blood loss History of atrial fibrillation Atrial flutter hypercalcemia acute renal failure. h/o MGUS now appears Multiple Myeloma chronic kidney disease hypothyroidism h/o colon cancer Plan: Neuro Acute encephalopathy- Resolved Monitor neuro status- Awake and alert. -10/31 CT brain : No acute intracranial findings -10/31 EEG: Mild encephalopathy -MRA brain/ neck - no abnormality -MRI brain negative -MRI Cspine with degeneration C3/4 and C4/5 with cord edema. Neuro is following- Dr. Schwarz - PT consulted -ammonia level normal. Cardiovascular: HTN AFIB Monitor HR and BP keep MAP>65mmHg On Cardizem 60mg Q6, add Lopressor 50mg Q12 Echo showed EF 60-65%, normal LV diastolic function . Pulmonary: Resp Insuff suspected NANCY. Continue with oxygen keep sats >92% Bronchodilators NIPPV PRN for resp distress GI/liver: Retroperitoneal hematoma/Hemorrhage Esophagitis History of colon cancer -Dr. Velazquez: recommends non-operative management of retroperitoneal hematoma. 10/31 CT abd/pelvis 10/31 showed retroperitoneal hematoma 9.3x6.7x6.2 cm EGD 10/24LA class C esophagitis with NG trauma. Normal mucosa of stomach, duodenum. Continue PPI per GI recommendation Renal/: ZOFIA overlying CKD Light chain cast nephropathy Hypercalcemia , resolved -Received pamidronate for hypercalcemia per nephrology on 10/23. -R IJ vascath placed 10/26 will esterley need Permacath placement for intermediate frame tender HD. Defer Renal HD per nephrology. -[facility] following. Dr[facility]: Plasma cell myeloma Chronic anticoagulation due to history of atrial fibrillation and lower extremity DVT -Being followed by oncology. Had known MGUS. - bone marrow biopsy 10/23 c/w myeloma -Off Decadron -Anticoagulation held for retroperitoneal hematoma -Transfused 1 unit packed red cells 10/25. -Will transfuse 2units PRBC, 1unit Cryo monitor H/H Q6 -Monitor CBC, coags , ID: -Pancultured ( Blood, sputum, Urine ) 10/24: NGTD Off abx, monitor for signs of infections ( Fever, WBC) Microbiology: 10/24urine culture negative 6/7 sputum culture negative. 10/24 blood culture no growth to date Endocrine: Hypothyroidism Continue Synthroid 75 mg p.o. daily on SSI fo glycemic control TSH normal 10/19 Prophylaxis: SCDs. PPI Lines: Miguel A SILVERIO vascath placed 10/26 Palliative care consulted to asses with goals of care Will sign off and transfer care to [facility]. Yakov Villalobos MD Nov 04, 2017 07:47
[2017-11-04 07:58] LABS: ALBUMIN 2.5 GM/DL (3.4-5.0); ALKALINE PHOSPHATASE 86 U/L (45-117); ALT (GPT) 116 U/L (12-78); AST (GOT) 50 U/L (15-37); BICARBONATE 26.5 MEQ/L (21.0-32.0); BLOOD UREA NITROGEN 53 MG/DL (7-18); CALCIUM 7.6 MG/DL (8.5-10.1); CHLORIDE 101 MEQ/L (98-107); CREATININE 5.42 MG/DL (0.60-1.30); GLOMERULAR FILTRATION RATE 10 ML/MIN (>89); GLUCOSE,RANDOM 125 MG/DL (74-106); SODIUM (NA) 140 MEQ/L (136-145); TOTAL BILIRUBIN ADULT 0.7 MG/DL (0.2-1.0); TOTAL PROTEIN 5.9 GM/DL (6.4-8.2)
[2017-11-04] MEDS: CHLORHEXIDINE 0.12% (ORAL KIT) 15 ML CUP MT SCH ×2 (08:00→20:00)
--- NOTE | 2017-11-04 08:13 | RADRPT ---
EXAM DATE: 11/04/2017 8:05 AM EDT AGE/SEX: 82 years / Male INDICATIONS: Short of breath. CLINICAL DATA: This is the patient's subsequent encounter. Patient reports that signs and symptoms h ave been present for 1 week and indicates a pain score of Nonresponsive. MEDICAL/SURGICAL HISTORY: . Cardiovascular disease. Hypertension. Carcinoma, colon. None. COMPARISON: [facility] [place], CHEST SINGLE AP, 10/26/2017. . FINDINGS: Dialysis catheter in good position. Mild cardiomegaly without failure. Minimal bibasilar parental tucker nges. No pneumothorax. CONCLUSION: Minimal bibasilar parenchymal changes without pneumothorax or failure Electronically signed by: Adrian Greco MD 11/04/2017 8:12 AM EDT
[2017-11-04] MEDS: DOCUSATE SODIUM 100 MG CAP PO SCH ×2 (08:29→20:53)
[2017-11-04] MEDS: PANTOPRAZOLE SODIUM 40 MG VIAL IV PUSH SCH ×2 (08:30→20:54)
[2017-11-04] MEDS: SODIUM CHLORIDE 0.9% FLUSH 10 ML FLUSH IV FLUSH SCH ×2 (08:30→20:53)
[2017-11-04] MEDS: CHOLECALCIFEROL (VIT D3) 1000 UNIT TAB PO SCH (08:30)
[2017-11-04] MEDS: MULTIVITAMIN TAB PO SCH (08:30)
[2017-11-04] MEDS: METOPROLOL TARTRATE 50 MG TAB PO SCH ×2 (08:31→20:53)
--- NOTE | 2017-11-04 11:26 | HHI.NPPN ---
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 He has been having some fatigue and weakness over the past few weeks and a CBC showed a Hgb of 7.2 prompting evaluation at the hospital. The patient's is the primary historian. Was admitted here in Jun for a L femur fx that he sustained at home while turning while moving TV tray causing a twist and fall type injury on his left leg. reports spiral fracture of his left femur that he underwent ORIF. He subsequently developed a DVT in the same leg. Renal functions during that admission were overall normal with SCr at 0.8 baseline. Serum calcium normal at this admission at 8.6-9.0. In August, he developed A fib with RVR and had acute renal insufficiency though nephrology services were not called as his functions improved with correction of RVR (admitting SCr 2.40 on 08/29 and discharge on 09/01 at 1.74). Noted mild hypercalcemia during this admission at 10.7. 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 Byrne, but was many years ago as per the . Says that he never underwent bone marrow bx, but had multiple labs that "didn't change" so they opted to stop following up. Given his recent anemia, his PCP did refer him to Dr. Jordyn Garcia, but appointment not until November. No known CKD hx. Denies any recent NVD No NSAID use No recent abx. Besides the aforementioned health history as of recent, he has been in his usual state of health as per his . Has been on Calcium 600mg with 500IU Vitamin D, with an additional Vitamin D3 1000IU daily since his femur fx. Admitting SCr 2.11 that has improved to 4.47 at consult. Serum CCa 12.9 at admission Interval History Patient with no verbal complaints. by bedside. Review of Systems General Constitutional: Fatigue Objective Data Data Vital Signs Date Time Temp Pulse Resp B/P (MAP) Pulse Ox O2 Delivery O2 Flow Rate FiO2 11/04/17 10:00 90 11/04/17 08:11 94 Nasal Cannula 4.00 11/04/17 08:00 98 11/04/17 08:00 98.4 98 22 147/86 (106) 95 11/04/17 07:00 95 Nasal Cannula 4.00 11/04/17 06:00 101 11/04/17 04:00 93 11/04/17 04:00 98.3 93 26 168/77 (107) 91 11/04/17 02:18 90 11/04/17 02:00 136 11/04/17 00:00 98.2 102 24 165/67 (99) 90 11/04/17 00:00 102 11/03/17 22:00 102 11/03/17 20:30 95 Nasal Cannula 4.00 11/03/17 20:00 99 11/03/17 20:00 98.2 99 20 164/72 (102) 94 11/03/17 19:00 92 Nasal Cannula 3.00 11/03/17 18:00 94 11/03/17 16:00 94 11/03/17 16:00 94 15 169/78 (108) 94 11/03/17 14:00 91 11/03/17 12:00 99.5 102 17 154/71 (98) 92 11/03/17 12:00 102 -: 11/04/17 0647 11/04/17 0647 Physical Exam General Appearance: Well Developed, Well Nourished, No Acute Distress, Comfortable Eyes Eye Exam: Sclera White Pulmonary Resp Exam: Clear Bilaterally, Breath Sounds Equal, No Distress Cardiology CV Exam: Regular, Normal Sinus Rhythm Gastrointestinal/Abdomen GI Exam: Soft, Non-Tender Genitourinary Exam: Clear Urine Integumentary Skin Exam: Clear, Warm Extremeties Extremities Exam: Moderate Edema Neurologic Neuro Exam: Awake, Speech Clear, Moving All Extremities Assessment/Plan Discussed Condition With: Patient, Spouse Problem List: (1) Acute renal failure ICD Codes: N17.9 - Acute kidney failure, unspecified Status: Acute Plan: I initiated the discussion with the patient and his regarding changing Vas- Cath to a hemodialysis PermCath in preparation for possible discharge to a rehab facility. The and patient had questions regarding his overall prognosis and quality of life given his multiple comorbidities including renal failure with dialysis dependence, advanced multiple myeloma as well as cardiac issues and his debilitation. I advised her that he is very debilitated and there is no improvement in his debilitated state I would suspect that his prognosis on dialysis would be relatively poor. As far as whether or not the patient will be able to get off dialysis treatment of his myeloma I indicated to her that this is uncertain. My experience I generally see patients with myeloma prior to the development of complete renal failure. I did advise her that there was potential for renal recovery however. She also had questions regarding what the outcome would be if dialysis were terminated. I told them that excluding recovery of renal function the patient would most likely develop increasing uremia without dialysis which would be associated with increasing lethargy subsequent coma and and I suspect that this would occur within a few days to 2 weeks given his current renal function. Passing from renal failure is generally not painful and the patient could be kept comfortable I recommended that she discuss the patient's overall prognosis given his current clinical state with hematology/oncology as well as palliative care. It was mutually decided to defer hemodialysis PermCath placement pending patient 's and 's decision regarding continued aggressive of treatment. Recommend palliative care consult at this time. Serum kapa chain serum level well over 1500 at 5385.6 mg/L with kapa chains evident in the urine and proteinuria consisting of 100% monoclonal protein according to lab. 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 Medications should be adjusted for the patient's renal decline. Avoid nephrotoxic agents such as iodinated contrast dyes and NSAIDs. Avoid gadolinium. (2) Hypercalcemia ICD Codes: E83.52 - Hypercalcemia Status: Resolved (3) Retroperitoneal hematoma ICD Codes: K66.1 - Hemoperitoneum Status: Acute Plan: Vascular surgical note reviewed. CTA deferred for now. (4) Atrial fibrillation ICD Codes: I48.91 - Unspecified atrial fibrillation Plan: Management as per primary team (5) HTN (hypertension) ICD Codes: I10 - Essential (primary) hypertension Status: Chronic Juan Ramon Carlson MD Nov 04, 2017 11:26
[2017-11-04] MEDS: MORPHINE SULFATE 4 MG/ML INJ IV PRN (16:15)
--- NOTE | 2017-11-04 17:00 | PD.CONS ---
Consult Service Palliative Care . Consult Requested By Dr. Villalobos . Primary Care Physician Dr. Wallace -- Non-Staff . Reason for Consultation a. To assist with evaluation and management of symptoms including: pain; b. To assist medical decision maker(s) with: better understanding of current medical conditions; weighing benefits/burdens of medical treatment options; making medical treatment decisions. . HPI History of Present Illness Mr. Mcintosh is an 82 y/o male with a known history of type 2 diabetes; atrial fibrillation; anemia; hypertension; hypothyroidism; remote history of colon cancer status post resection; DVT; and monoclonal gammopathy of uncertain significance who presented to the [facility] Emergency Department on for evaluation of anemia. The patient had been on Eliquis for anticoagulation and was followed by his certified nursing assistant. He had blood drawn the week before and received a telephone call that his hemoglobin was 7.2 and should see a public health service officer. They could not get an appointment soon, went to their PCP -- Dr. Wallace-- who in turn recommended that he go to the emergency department for evaluation and a blood transfusion. Upon emergency department arrival, the patient endorsed that he was feeling weaker than normal and that he was unable to perform his usual physical therapy due to his weakness. He also reported some shortness of breath. This is the patient's third acute-care hospitalization here at [place] since 09/04. He was admitted from 06/23/2017 through 06/26/2017 due to a left femur fracture after a fall. He was admitted again from 08/29/2017 through 2017 for atrial flutter and acute renal failure. In the emergency department on this most recent presentation initial vital signs showed: Temperature 97.9; pulse 81; respiratory rate 18; blood pressure 145/66; pulse oximetry 94% on room air Initial clinical exam in the emergency department showed the following: There was an irregular rate and rhythm. Lungs are clear. Patient was awake and alert. No other significant abnormalities reported. Initial diagnostic testing showed the following: * CBC showed WBC 11.2; hemoglobin 6.9; platelet count 286 * Coagulation profile showed PT 11.4; INR 1.1; PTT 21.8 * Chemistry profile showed BUN 59; creatinine 5.11; glucose 98; calcium 13.8; magnesium 2.3; sodium 141; potassium 3.5; chloride 1 3; CO2 24.9; anion gap 13; estimated GFR 11 * EKG showed atrial flutter at a rate of 79. There were no significant changes over the prior EKG. The patient was admitted due to his level of anemia and renal dysfunction. The patient's hospitalization has been complicated. He underwent bone marrow biopsy by interventional radiology on 10/23/2017. He did fine immediately after -- was awake, alert, interactive. Later that day, however, he developed altered mental status with speech difficulty and a question of left-sided facial weakness. A stroke alert was called. Head CT at that time was read as negative for bleed. Neurology was consulted. The patient's blood pressure at the time was 218 systolic. A nicardipine drip was ordered. Patient was transferred to the ICU. Critical care was consulted. In the intensive care unit the patient was awake and alert and oriented and able to move all 4 extremities. On the morning of 10/24/2017 the patient was noted to be lethargic. His O2 saturations dropped and he was placed on a nonrebreather mask. He had received 0.5 mg of Ativan for agitation at night and morphine at around 4 AM. The patient's oxygen saturations improved with IV Narcan. However he also became hypothermic and bradycardic. He had difficulty protecting his airway. He underwent endotracheal intubation and was placed on mechanical ventilation. MRI of the brain was negative at that time. The patient became oliguric. On 10/26/2017 the pathology report came back indicating multiple myeloma. The patient was started on Decadron by hematology. Hemodialysis was started on 02/04 due to poor renal function. The patient was successfully extubated on . Renal function improved with diuresis. On 10/31/17 there was another episode of altered mental status. This time the patient was completely obtunded with a disconjugate gaze. Systolic blood pressure was noted to be in the 70s. It was felt he might be post ictal. He had complained of some severe abdominal pain about [address] imaging of the brain was again negative for an acute bleed. Neurology felt this was most likely a seizure secondary to an acute hypotensive episode. The patient was placed on Keppra. CT of the abdomen/pelvis done for evaluation of the abdominal pain revealed a large left psoas hematoma. Anticoagulation ( heparin) was reversed. Follow-up of the CT imaging showed no hematoma expansion. Cardiovascular surgery saw the patient for evaluation of the hematoma. Since the bleed had stabilized, the surgeon did not feel there was an indication for surgery. Hypotension was again noted on 11/01/17 with systolic blood pressures in the 80s -90s. Since October 18 the patient has received 8 units of packed red blood cells and 1 unit of cryoprecipitate. His albumin level is now down to 2.5. He remains on hemodialysis without evidence of renal improvement. Nephrology feels he will likely need long-term dialysis and is recommending Perma-cath placement. Cultures of stool, urine, sputum, and blood done early on in this admission were all negative. At time of my visit, patient is awake and alert and conversant. He tells me he feels lousy. He reports pain at the site of his hematoma. Patient has been rating pain in the #4-9 range since yesterday. He also has pain in the back . Pain is worse with movement. Opioid analgesia helps the pain. At time of my visit, he denies SOB. He is mostly just fed up with being a patient. . Function/Cognitive Trajectory The patient has had multiple orthopedic surgeries over the last several years - - hips, knees, back. He has been able to recover from these. Prior to his most recent hip fracture, he was able to walk short distances without an assistive device. He was able to travel and take care of all of his ADLs. His fracture back in June came when was setting up a tray table and twisted the wrong way. The orthopedist decided he was not a good candidate for operative treatment. The patient was discharged to [facility] but did no weight-bearing there. In August, he told he could do weight bearing as tolerated. He began having some physical therapy at home and ultimately was able to walk with a walker. He did not experience a significant amount of pain and was not requiring opioid analgesics. The patient was first diagnosed with MGUS in 2009. He had periodic low hemoglobins but was just monitored by his family doctor with blood work every 6- 12 months. . 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), DENIES: Diplopia, Eye pain Ears, nose, mouth, throat: DENIES: Hearing loss, Vertigo, Oral lesions, Throat pain, Epistaxis, Toothache Respiratory: COMPLAINS OF: Snoring, Shortness of breath, DENIES: Apneas, Cough , Wheezing, Hemoptysis Cardiovascular: COMPLAINS OF: Palpitations, Dyspnea on Exertion, Lower Extremity Edema, DENIES: Chest pain, Syncope Gastrointestinal: COMPLAINS OF: Abdominal pain, Constipation, DENIES: Black stools, Bloody stools, Nausea, Vomiting Genitourinary: COMPLAINS OF: Hematuria, DENIES: Urinary incontinence, Dysuria Musculoskeletal: COMPLAINS OF: Muscle aches, Back pain Integumentary: DENIES: Rash Hematologic/Lymphatics: COMPLAINS OF: Bruising, History of transfusions Immunologic/Allergic: DENIES: Eczema Neurologic: COMPLAINS OF: Abnormal gait (Uses walker), Seizures, Poor Balance, DENIES: Headache Psychiatric: COMPLAINS OF: Confusion (Only when on sedating drugs.), Depression Past Family Social History Coded Allergies: No Known Allergies (Verified Allergy, Unknown, 06/24/17) Past Medical History HTN A fib ZOFIA Hypothyroidism Colon cancer- diagnosed 1983- s/p resection, no chemo or radiation MUGUS- about 5 yrs ago Chronic anemia Possible seizure Cervical stenosis Lower extremity DVT Past Surgical History colon cancer resection laminectomy 3 hip sx 2 knee sx Reported Medications Prehospitalization medications at home include the following: * Metoprolol 25 mg tablet; 12.5 mg by mouth twice daily * Diltiazem extended release 24 hour 120 mg; 240 mg by mouth twice daily * Calcium carbonate-vitamin D 600-200 mg tablet; one by mouth twice daily * Levothyroxine 75 mcg tablet; one by mouth daily * Cholecalciferol 2000 unit capsule; 2000 units by mouth daily * Multiple vitamin tablet; one by mouth daily . Current Medications Medications (Trade) Dose Ordered Sig/Reggie Route Start Time Stop Time Status Last Admin (NS Flush) 2 ml UNSCH PRN IV FLUSH 10/18/17 14:15 10/25/17 08:22 (NS Flush) 2 ml BID IV FLUSH 10/18/17 21:00 11/04/17 08:30 (Zofran Odt) 4 mg Q6H PRN PO 10/18/17 14:45 (Morphine Inj) 2 mg Q3H PRN IV 10/18/17 14:45 (Morphine Inj) 4 mg Q3H PRN IV 10/18/17 14:45 11/04/17 16:15 (Narcan Inj) 0.4 mg UNSCH PRN IV PUSH 10/18/17 14:15 10/24/17 06:58 (Vitamin D3) 2,000 units DAILY PO 10/19/17 09:00 11/04/17 08:30 (Synthroid) 75 mcg DAILY@0600 PO 10/19/17 06:00 11/04/17 05:50 (Theragran) 1 tab DAILY PO 10/19/17 09:00 11/04/17 08:30 (Pill Splitter) 1 ea UNSCH PRN OTHER 10/18/17 15:45 (Colace) 100 mg BID PO 10/18/17 21:00 11/03/17 21:23 (Catapres) 0.1 mg Q6H PRN PO 10/18/17 18:30 11/02/17 20:22 ([facility]) Patient in critical care unit? Ass... Q361D .XX 10/23/17 23:00 10/23/17 23:00 (Peridex 0.12% Liq) 15 ml BID@08,20 MT 10/24/17 20:00 11/02/17 20:00 (Pepcid) 10 mg BID PO 10/24/17 11:00 Future Hold 10/24/17 12:19 Heparin Sodium/ Dextrose 250 ml @ 18 mls/hr TITRATE PRN IV 10/24/17 17:45 Future hold 10/30/17 17:04 (Albuterol Neb) 2.5 mg Q2HR NEB PRN NEB 10/24/17 22:00 (Protonix Inj) 40 mg Q12H IV PUSH 10/25/17 21:00 11/04/17 08:30 (D50w (Vial) Inj) 50 ml UNSCH PRN IV PUSH 10/26/17 07:30 (Glucagon Inj) 1 mg UNSCH PRN OTHER 10/26/17 07:30 (NovoLOG SUPPLEMENTAL SCALE) 1 Q6H SQ 10/26/17 08:00 11/03/17 20:00 Sodium Chloride 1,000 ml @ 0 mls/hr Q0M PRN OTHER 10/26/17 12:43 Future Hold 11/02/17 21:46 (Heparin Inj) 8,000 units UNSCH PRN IV FLUSH 10/26/17 12:45 Future Hold Sodium Chloride 1,000 ml @ 200 mls/hr Q5H PRN IV 10/26/17 12:43 Future Hold Sodium Chloride 1,000 ml @ 0 mls/hr Q0M PRN OTHER 10/26/17 12:43 Future Hold Albumin Human 100 ml @ 60 mls/hr UNSCH PRN IV 10/26/17 12:45 Future Hold 10/26/17 16:00 (NS Flush) 5 ml UNSCH PRN IV FLUSH 10/26/17 12:45 Future Hold 11/02/17 21:45 (Heparin Inj) UNSCH PRN .XX 10/26/17 12:45 Future Hold 10/30/17 16:00 (Gentamicin Inj) 20 mg UNSCH PRN OTHER 10/26/17 12:45 Future Hold 11/02/17 21:44 (Benadryl) 25 mg UNSCH PRN PO 10/26/17 12:45 Future Hold 10/28/17 02:30 (Nitrostat Sl) 0.4 mg UNSCH PRN SL 10/26/17 12:45 Future Hold (Catapres) 0.1 mg UNSCH PRN PO 10/26/17 12:45 Future Hold (Gelfoam 12 Mm/7 Mm Top) 1 foam UNSCH PRN TOP 10/26/17 12:45 (Lopressor Inj) 5 mg Q6H PRN IV PUSH 10/28/17 02:15 Future Hold 10/29/17 00:47 (Lopressor Inj) 5 mg Q5M PRN IV PUSH 10/28/17 05:15 Future hold 11/04/17 06:32 (Duoneb Neb) 1 ampule Q2HR NEB PRN NEB 10/29/17 09:00 (Catapres) 0.1 mg Q8HR PO 10/29/17 09:00 Future Hold 10/30/17 20:35 Albumin Human 100 ml @ 60 mls/hr UNSCH PRN IV 11/01/17 17:30 (Dilaudid Pf Inj) 0.5 mg Q4H PRN IV PUSH 11/01/17 22:15 11/03/17 10:09 (Lopressor Inj) 5 mg Q5M PRN IV PUSH 11/02/17 01:45 11/04/17 02:13 (Lopressor Inj) 5 mg Q5M PRN IV PUSH 11/02/17 14:45 (Cardizem) 60 mg Q6H PO 11/03/17 08:00 11/04/17 15:11 (Lopressor) 50 mg Q12HR PO 11/04/17 09:00 11/04/17 08:31 . Family History Mother had a brain tumor. Father of uncertain cause. A sister had ovarian cancer. . Substance Use Tobacco: Smoked a pipe in the past. Alcohol: Drank 1-2 drinks per day for much of adult life. No significant EtOH use in years. Prescription med abuse: No history of abuse Illicits: No known use of illicits. . . Psychosocial History Patient was born in [place]. Move to [place] at age 5. 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 Had two children with first -- Augusto (lives locally) and Zoie (lives in [place], [place]) Had one biological child with second -- Wilbur (lives locally). They also adopted Belen (lives in [place], [place]) . Spiritual/Cultural Factors Catholic. Is "a believer." Attended nondenominational and [employer] school all his life. Does NOT want to have door fitter visit. . Living Will: Completed, but not made available Health Care Surrogate: Completed, but not made available Date completed: says there is an advance directive at home but she has not brought it in. Date of completion is unknown. . Health Care Surrogate(s): says there is an advance directive at home but she has not brought it in. Date of completion is unknown. says she is the designated health care surrogate , but we don't have the document. . Documented care wishes: No written documentation of health care wishes. . Today's verbally stated goals: Patient is quite adamant that he wants no more aggressive treatments. He does not want dialysis . He does not want chemotherapy. He does not want blood transfusions. He wants to be kept comfortable. He says, "I am ready to ." However, he wants his family to be at peace with the decision and he is waiting for them to come around. . Family/friends goals: wants to speak with doctors (particularly hematology) one more time to make sure she understands and the patient understands the benefits and burdens of the different treatment options. . Ethical and Legal Issues Patient is capacitated to make his own health care decisions. Should he become incapacitated, his would be the proxy decision maker unless we have access to an advance directive that indicates otherwise. . Physical Exam Vital Signs Date Time Temp Pulse Resp B/P (MAP) Pulse Ox O2 Delivery O2 Flow Rate FiO2 11/04/17 16:00 98.5 104 29 127/62 (83) 92 11/04/17 16:00 104 11/04/17 14:00 142 11/04/17 12:00 101 11/04/17 12:00 98.5 101 27 155/84 (107) 95 11/04/17 10:00 90 11/04/17 08:11 94 Nasal Cannula 4.00 11/04/17 08:00 98 11/04/17 08:00 98.4 98 22 147/86 (106) 95 11/04/17 07:00 95 Nasal Cannula 4.00 11/04/17 06:00 101 11/04/17 04:00 93 11/04/17 04:00 98.3 93 26 168/77 (107) 91 11/04/17 02:18 90 11/04/17 02:00 136 11/04/17 00:00 98.2 102 24 165/67 (99) 90 11/04/17 00:00 102 11/03/17 22:00 102 11/03/17 20:30 95 Nasal Cannula 4.00 11/03/17 20:00 99 11/03/17 20:00 98.2 99 20 164/72 (102) 94 11/03/17 19:00 92 Nasal Cannula 3.00 11/03/17 18:00 94 . 11/04/17 11/05/17 19:00 07:00 Output Total 2500 ml Balance -2500 ml Hemodialysis 2500 ml . Exam CONSTITUTIONAL/GENERAL: This is an adequately nourished patient, awake, alert in an MICU bed. No obvious distress (but recently medicated with opiates). TUBES/LINES/DRAINS: Nasal cannula oxygen; Mathis catheter; peripheral IV; vas cath right jugular vein SKIN: No jaundice, rashes, or lesions. No wounds seen anteriorly. Skin temperature appropriate. Not diaphoretic. HEAD: Atraumatic. Normocephalic. EYES: Pupils equal and round and reactive. Extraocular motions intact. No scleral icterus. No injection or drainage. Fundi not examined. ENT: Hearing grossly normal. Nose without bleeding or purulent drainage. Throat without visible erythema, exudates, masses, or lesions. NECK: Trachea midline. Supple, nontender. No palpable thyroid enlargement or nodularity. CARDIOVASCULAR: Tachycardic. Irregularly irregular rhythm without murmurs, gallops, or rubs. No JVD. Peripheral pulses symmetric. RESPIRATORY/CHEST: Symmetric, unlabored respirations. Clear to auscultation. Breath sounds equal bilaterally. No wheezes, rales, or rhonchi. GASTROINTESTINAL: Abdomen soft, non-tender, nondistended. No hepato-splenomegaly , or palpable masses. No guarding. Bowel sounds present. GENITOURINARY: Without palpable bladder distension. Mathis catheter in place. Blood-tinged urine in Mathis catheter. MUSCULOSKELETAL: Extremities without clubbing, cyanosis. Moderate edema in both lower extremities. No calf tenderness. No mottling or clubbing. LYMPHATICS: No palpable cervical or supraclavicular adenopathy. NEUROLOGICAL: Awake and alert. Motor and sensory grossly within normal limits. Follows commands. Moves all extremities. PSYCHIATRIC: No obvious anxiety/depression. nNo apparent hallucinations or other psychotic thought process. . Diagnostic Tests Laboratory Laboratory Tests Test 11/01/17 21:38 11/02/17 05:05 11/02/17 13:18 11/02/17 18:24 Hemoglobin 9.2 GM/DL (13.0-17.0) 9.3 GM/DL (13.0-17.0) 9.3 GM/DL (13.0-17.0) 9.1 GM/DL (13.0-17.0) Hematocrit 26.8 % (39.0-51.0) 27.6 % (39.0-51.0) 28.6 % (39.0-51.0) 27.2 % (39.0-51.0) White Blood Count 14.6 TH/MM3 (4.0-11.0) Red Blood Count 3.26 MIL/MM3 (4.50-5.90) Mean Corpuscular Volume 84.5 FL (80.0-100.0) Mean Corpuscular Hemoglobin 28.6 PG (27.0-34.0) Mean Corpuscular Hemoglobin Concent 33.9 % (32.0-36.0) Red Cell Distribution Width 15.4 % (11.6-17.2) Platelet Count 125 TH/MM3 (150-450) Mean Platelet Volume 8.3 FL (7.0-11.0) Neutrophils (%) (Auto) 92.2 % (16.0-70.0) Lymphocytes (%) (Auto) 2.4 % (9.0-44.0) Monocytes (%) (Auto) 5.1 % (0.0-8.0) Eosinophils (%) (Auto) 0.2 % (0.0-4.0) Basophils (%) (Auto) 0.1 % (0.0-2.0) Neutrophils # (Auto) 13.5 TH/MM3 (1.8-7.7) Lymphocytes # (Auto) 0.3 TH/MM3 (1.0-4.8) Monocytes # (Auto) 0.7 TH/MM3 (0-0.9) Eosinophils # (Auto) 0.0 TH/MM3 (0-0.4) Basophils # (Auto) 0.0 TH/MM3 (0-0.2) CBC Comment DIFF FINAL Differential Comment Blood Urea Nitrogen 44 MG/DL (7-18) Creatinine 4.56 MG/DL (0.60-1.30) Random Glucose 95 MG/DL (74-106) Total Protein 6.1 GM/DL (6.4-8.2) Albumin 2.7 GM/DL (3.4-5.0) Calcium Level 7.5 MG/DL (8.5-10.1) Alkaline Phosphatase 70 U/L (45-117) Aspartate Amino Transf (AST/SGOT) 75 U/L (15-37) Alanine Aminotransferase (ALT/SGPT) 163 U/L (12-78) Total Bilirubin 0.8 MG/DL (0.2-1.0) Sodium Level 142 MEQ/L (136-145) Potassium Level 3.8 MEQ/L (3.5-5.1) Chloride Level 104 MEQ/L (98-107) Carbon Dioxide Level 25.5 MEQ/L (21.0-32.0) Anion Gap 13 MEQ/L (5-15) Estimat Glomerular Filtration Rate 12 ML/MIN (>89) Test 11/03/17 00:51 11/03/17 05:52 11/04/17 06:47 Hemoglobin 9.0 GM/DL (13.0-17.0) 8.9 GM/DL (13.0-17.0) 8.7 GM/DL (13.0-17.0) Hematocrit 26.7 % (39.0-51.0) 27.0 % (39.0-51.0) 25.9 % (39.0-51.0) White Blood Count 12.7 TH/MM3 (4.0-11.0) 10.2 TH/MM3 (4.0-11.0) Red Blood Count 3.13 MIL/MM3 (4.50-5.90) 3.04 MIL/MM3 (4.50-5.90) Mean Corpuscular Volume 86.4 FL (80.0-100.0) 85.2 FL (80.0-100.0) Mean Corpuscular Hemoglobin 28.5 PG (27.0-34.0) 28.7 PG (27.0-34.0) Mean Corpuscular Hemoglobin Concent 33.0 % (32.0-36.0) 33.7 % (32.0-36.0) Red Cell Distribution Width 15.5 % (11.6-17.2) 15.5 % (11.6-17.2) Platelet Count 138 TH/MM3 (150-450) 154 TH/MM3 (150-450) Mean Platelet Volume 7.9 FL (7.0-11.0) 8.1 FL (7.0-11.0) Neutrophils (%) (Auto) 93.3 % (16.0-70.0) 90.2 % (16.0-70.0) Lymphocytes (%) (Auto) 2.2 % (9.0-44.0) 3.5 % (9.0-44.0) Monocytes (%) (Auto) 3.4 % (0.0-8.0) 3.3 % (0.0-8.0) Eosinophils (%) (Auto) 0.9 % (0.0-4.0) 2.8 % (0.0-4.0) Basophils (%) (Auto) 0.2 % (0.0-2.0) 0.2 % (0.0-2.0) Neutrophils # (Auto) 11.8 TH/MM3 (1.8-7.7) 9.2 TH/MM3 (1.8-7.7) Lymphocytes # (Auto) 0.3 TH/MM3 (1.0-4.8) 0.4 TH/MM3 (1.0-4.8) Monocytes # (Auto) 0.4 TH/MM3 (0-0.9) 0.3 TH/MM3 (0-0.9) Eosinophils # (Auto) 0.1 TH/MM3 (0-0.4) 0.3 TH/MM3 (0-0.4) Basophils # (Auto) 0.0 TH/MM3 (0-0.2) 0.0 TH/MM3 (0-0.2) CBC Comment AUTO DIFF DIFF FINAL Differential Total Cells Counted 100 Neutrophils % (Manual) 94 % (16-70) Band Neutrophils % 1 % (0-6) Lymphocytes % 3 % (9-44) Monocytes % 1 % (0-8) Eosinophils % 1 % (0-4) Neutrophils # (Manual) 12.1 TH/MM3 (1.8-7.7) Nucleated Red Blood Cells 3 /100 WBC (0-0) Differential Comment FINAL DIFF MANUAL Platelet Estimate LOW (NORMAL) Platelet Morphology Comment NORMAL (NORMAL) Blood Urea Nitrogen 34 MG/DL (7-18) 53 MG/DL (7-18) Creatinine 3.67 MG/DL (0.60-1.30) 5.42 MG/DL (0.60-1.30) Random Glucose 96 MG/DL (74-106) 125 MG/DL (74-106) Total Protein 5.9 GM/DL (6.4-8.2) 5.9 GM/DL (6.4-8.2) Albumin 2.4 GM/DL (3.4-5.0) 2.5 GM/DL (3.4-5.0) Calcium Level 7.6 MG/DL (8.5-10.1) 7.6 MG/DL (8.5-10.1) Alkaline Phosphatase 75 U/L (45-117) 86 U/L (45-117) Aspartate Amino Transf (AST/SGOT) 90 U/L (15-37) 50 U/L (15-37) Alanine Aminotransferase (ALT/SGPT) 147 U/L (12-78) 116 U/L (12-78) Total Bilirubin 1.3 MG/DL (0.2-1.0) 0.7 MG/DL (0.2-1.0) Sodium Level 139 MEQ/L (136-145) 140 MEQ/L (136-145) Potassium Level 3.6 MEQ/L (3.5-5.1) 3.3 MEQ/L (3.5-5.1) Chloride Level 101 MEQ/L (98-107) 101 MEQ/L (98-107) Carbon Dioxide Level 25.7 MEQ/L (21.0-32.0) 26.5 MEQ/L (21.0-32.0) Anion Gap 12 MEQ/L (5-15) 13 MEQ/L (5-15) Estimat Glomerular Filtration Rate 16 ML/MIN (>89) 10 ML/MIN (>89) . Result Diagram: 11/04/17 0647 11/04/17 0647 Microbiology Microbiology Date/Time Source Procedure Growth Status 10/24/17 13:55 Blood Peripheral Aerobic Blood Culture - Final NO GROWTH IN 5 DAYS Complete 10/24/17 13:55 Blood Peripheral Anaerobic Blood Culture - Final NO GROWTH IN 5 DAYS Complete 10/19/17 12:30 Stool Stool Stool Occult Blood (NAOMI) - Final HEMOCCULT NEGATIVE Complete 10/24/17 09:11 Sputum Endotracheal Gram Stain - Final Complete 10/24/17 09:11 Sputum Endotracheal Sputum Culture - Final HEAVY GROWTH NORMAL RESPIRATORY JANENE Complete 10/24/17 09:00 Urine Catheterized Urine Urine Culture - Final NO GROWTH IN 48 HOURS. Complete . Imaging Last Impressions Chest X-Ray 11/04/17 0000 Signed Impressions: CONCLUSION: Minimal bibasilar parenchymal changes without pneumothorax or failure Abdomen/Pelvis CT 10/31/17 1500 Signed Impressions: CONCLUSION: 1. Stable right retroperitoneal hemorrhage. 2. Stable effusions and bibasilar consolidation. 3. Cholelithiasis. Although the gallbladder is well-distended I see no pericho lecystic fluid or gallbladder wall thickening. If assessment of acute cholecyst itis is needed I would suggest an ultrasound. Head CT 10/31/17 Signed Impressions: CONCLUSION: 1. Stable exam without evidence of acute infarct, hemorrhage, mass or edema. 2. No change compared to earlier study on 10/23 Brain MRI 10/24/17 0600 Signed Impressions: CONCLUSION: Negative MR Brain non contrast. Neck Magnetic Resonance Angiography 10/24/17 Signed Impressions: CONCLUSION: Normal study __ Percent stenosis is calculated using the diameter of the stenotic region over t he diameter of the normal distal internal carotid artery Head Magnetic Resonance Angiography 10/24/17 Signed Impressions: CONCLUSION: Negative MRA [place] ([place]) non contrast. Cervical Spine MRI 10/24/17 Signed Impressions: CONCLUSION: 1. 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 2. 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 3. Multilevel significant neural foraminal narrowing as detailed at each level in the above discussion. 4. Lesion involving the spinous process of T2. This is incompletely characteri zed on this exam. Consider CT scan to further assess. Bone Biopsy CT 10/23/17 Signed Impressions: CONCLUSION: 1. Uncomplicated CT guided bone marrow aspirate. 2. Uncomplicated CT guided bone marrow biopsy. Bone Osseous Survey 10/20/17 Signed Impressions: CONCLUSION: Ill-defined lucencies and patchy cortical thinning of multiple bones, primarily the long bones and especially the right tibia and fibula. Extensive multiple m yeloma could certainly have this appearance in the proper clinical setting. Renal Ultrasound 10/19/17 Signed Impressions: CONCLUSION: 1. Negative renal sonogram. . Procedures Intubation/mechanical ventilation Bone marrow biopsy Vas-cath placement . Patient/Family Conference Present at Family Conference: I spoke with the family alone -- Spouse, daughters Belen and Zoie. I then spoke to patient with spouse and Zoie present. . Family Conference Time (mins): 60 (Total time includes time with family and then time with patient + family. ) Family Conference Location: Bedside, Consult Room Issues Discussed: * Palliative care role, purpose, approach * Additional medical, psychosocial, and spiritual history * Patients general health, functional status, and cognitive changes in the months leading up to the current hospitalization * Patient/family understanding of the current medical problems * Patient/family understanding of prognosis * Patients goals of care as best understood from advance directives and/or conversations and/or values * Current medical treatment options and benefits/burdens of those options * Likely scenarios comparing ongoing aggressive care with a transition to comfort measures only * Questions answered to the best of my ability * Palliative care contact information provided . Assessment and Plan Disease Oriented Problem List: (1) Multiple myeloma (2) Acute renal failure (3) Retroperitoneal hematoma (4) Anemia (5) Atrial fibrillation (6) Type 2 diabetes mellitus (7) Hypothyroidism (8) Hypercalcemia Symptom Scale: (1) Pain 0-10 Scale: 8 Pertinent Non-Medical Issues Psychosocial: Well supported by spouse and 4 children. Two sons live locally. Spiritual: Catholic. Spirituality is important to him -- "I'm a good Amish." However, he does not want door fitter visits. Legal: reports he has completed an advance directive. She has not brought it in yet. Ethical issues impacting care: Patient remains capacitated to make his own health care decisions. . Important Contacts * Jade Mcintosh (spouse) [phone]; [phone] . Prognosis Patient remains quite debilitated since his early June when he fell and fractured his hip. He seems to have evolved from a Monoclonal Gammopathy of Uncertain Significance to multiple myeloma. Since October 18, when he was admitted , he has been having complications and setbacks including bleeding ( retroperitineal hematoma); renal failure now requiring regular dialysis; episodes of altered mental status; hypotension. The patient is now deconditioned and getting him mobile again will be difficult. The patient is tired and no longer wants to fight. He has been very clear that he wants to forego further life prolonging measures and focus on comfort care. It is feasible that some improved quality of life might be a possibility if he continues with dialysis, accepts chemotherapy, and work hard in rehab. He does not want any of those. If he opts for comfort centered care, he would be a candidate for hospice. . . Code Status: Full Code Plan == Code Status -- FULL CODE. Family wants NO CODE status but patient wants family to be comfortable with his decision. wants to speak with hematology before changing goals of care. == Decision making: Patient is currently capacitated to make his own health care decisions. He has been clear that he wants comfort measures only. However , he wants his family to be at peace with his decision and is waiting for them have the questions answered that they need . reports she is the health care surrogate in the advance directives at home. We have not seen any advance directive. I have encouraged her to bring the document in. == Goals of medical treatment. As noted above, patient wants to transition to "comfort measures only" as soon as his family is at peace with his decision. Family wants to speak to hematology and be certain they understand benefits/ burdens of that treatment. However, chemotherapy does not make much sense if patient is going to refuse to transported back and forth to a dialysis center. == Symptoms * Pain: Pain has mostly been in the right hip/flank area and has been attributed to his hematoma. He also has discomfort from prolonged bedbound status. He is getting reasonable relief from opiate anaglesics. == Given patient's level of renal failure, may want to consider fentanyl as primary analgesic rather than morphine or hydrmorphone. They will be very long acting on non-dialysis days when they cannot be metabolized well and then will be dialyzed off on dialysis days. Frequent PRN doses of short acting fentanyl may be better. == Based on conversation today, patient and family will choose comfort oriented care after speaking with heme/onc. If that decision is made, will make patient NO CODE and refer to hospice. == Palliative care will continue to follow to assist with symptom management and to further clarify goals of medical treatment as the clinical course evolves. . Time Spent Total Floor Time (mins): 95 (Total floor time included chart review; patient exam; collaboration with bedside nurse; the two family conferenced noted above.) Face to Face Time (mins): 20 >50% Counseling/Coord of Care: Yes Thank you for the opportunity to participate in the care of Mr. Mcintosh. . Collaborating MD Comments . Attestation To help prompt me to consider important information that might be impacting today's encounter and assessment, information from prior notes written by myself or my colleagues may have been "brought forward" into today's note. My signature on this note, however, is an attestation that I personally performed the exam, history, and/or decision-making noted today, and, unless otherwise indicated, the interactions with patient, family, and staff as well as the review of records all occurred today. I also attest that the listed assessment and stated plan reflect my best clinical judgment today based on the combination of historical information, prior notes, and today's exam/ interactions. When time spent is documented, it refers only to time spent today by the signer, or if indicated, combined time spent today by collaborating physician/nurse practitioner. . Wayne Randall MD Nov 04, 2017 17:00
[2017-11-05] VITALS (14 sets, daily range): BP systolic 124–169; BP diastolic 77–83; PULSE 92–103; RESP 18–23; TEMP 97.7–98.8; O2SAT 95–98
[2017-11-05] MEDS: DILTIAZEM HCL 60 MG TAB PO SCH ×4 (01:21→20:20)
[2017-11-05] MEDS: INSULIN ASPART SUPPLEMENTAL SCALE SQ SCH ×4 (01:22→20:00)
[2017-11-05] MEDS: LEVOTHYROXINE SODIUM 75 MCG TAB PO SCH (05:36)
[2017-11-05 07:14] LABS: AUTOMATED NEUTROPHIL # 8.6 TH/MM3 (1.8-7.7); BASOPHIL % 0.5 % (0.0-2.0); EOSINOPHIL # 0.3 TH/MM3 (0-0.4); EOSINOPHIL % 2.7 % (0.0-4.0); HEMATOCRIT 28.4 % (39.0-51.0); HEMOGLOBIN 9.6 GM/DL (13.0-17.0); LYMPH % 6.1 % (9.0-44.0); LYMPHOCYTE # 0.6 TH/MM3 (1.0-4.8); MEAN CELL VOLUME 85.4 FL (80.0-100.0); MEAN CORPUSCULAR HEMOGLOBIN 28.7 PG (27.0-34.0); MEAN CORPUSCULAR HGB CONC 33.6 % (32.0-36.0); MEAN PLATELET VOLUME 7.8 FL (7.0-11.0); MONO % 3.9 % (0.0-8.0); MONOCYTE # 0.4 TH/MM3 (0-0.9); NEUT % 86.8 % (16.0-70.0); PLATELET COUNT 166 TH/MM3 (150-450); RED BLOOD COUNT 3.32 MIL/MM3 (4.50-5.90); RED CELL DISTRIBUTION WIDTH 15.6 % (11.6-17.2); WHITE BLOOD COUNT 9.9 TH/MM3 (4.0-11.0)
[2017-11-05 07:44] LABS: ALBUMIN 2.7 GM/DL (3.4-5.0); ALKALINE PHOSPHATASE 102 U/L (45-117); ALT (GPT) 106 U/L (12-78); AST (GOT) 41 U/L (15-37); BICARBONATE 30.5 MEQ/L (21.0-32.0); BLOOD UREA NITROGEN 36 MG/DL (7-18); CALCIUM 7.6 MG/DL (8.5-10.1); CHLORIDE 101 MEQ/L (98-107); CREATININE 4.66 MG/DL (0.60-1.30); GLOMERULAR FILTRATION RATE 12 ML/MIN (>89); GLUCOSE,RANDOM 109 MG/DL (74-106); SODIUM (NA) 142 MEQ/L (136-145); TOTAL BILIRUBIN ADULT 0.8 MG/DL (0.2-1.0); TOTAL PROTEIN 6.3 GM/DL (6.4-8.2)
[2017-11-05] MEDS: CHLORHEXIDINE 0.12% (ORAL KIT) 15 ML CUP MT SCH ×2 (08:00→20:00)
[2017-11-05 08:32] LABS: BANDS 3 % (0-6); LYMPHOCYTES 3 % (9-44); METAMYELOCYTES 1 % (0-1); MONOCYTES 1 % (0-8); MYELOCYTES 1 % (0-0); NEUTROPHIL # MANUAL DIFF 9.4 TH/MM3 (1.8-7.7); POLYS (SEG NEUTROPHILS) 90 % (16-70)
[2017-11-05 08:33] LABS: OVALOCYTES 1+ (NORMAL)
[2017-11-05] MEDS: CHOLECALCIFEROL (VIT D3) 1000 UNIT TAB PO SCH (08:38)
[2017-11-05] MEDS: MULTIVITAMIN TAB PO SCH (08:39)
[2017-11-05] MEDS: SODIUM CHLORIDE 0.9% FLUSH 10 ML FLUSH IV FLUSH SCH ×2 (08:39→20:20)
[2017-11-05] MEDS: PANTOPRAZOLE SODIUM 40 MG VIAL IV PUSH SCH ×2 (08:39→20:20)
[2017-11-05] MEDS: METOPROLOL TARTRATE 50 MG TAB PO SCH ×2 (08:39→20:20)
[2017-11-05] MEDS: DOCUSATE SODIUM 100 MG CAP PO SCH ×2 (08:40→20:21)
--- NOTE | 2017-11-05 09:38 | HHI.PR ---
Subjective Remarks Follow-up multiple myeloma, renal failure. The patient reports a burning sensation in the lower right flank. The area is not tender and the pain is not worse with movement. He denies chest pain, dyspnea, nausea, vomiting. Objective Vitals Vital Signs Date Time Temp Pulse Resp B/P (MAP) Pulse Ox O2 Delivery O2 Flow Rate FiO2 11/05/17 07:00 96 Nasal Cannula 3.00 11/05/17 06:00 97 11/05/17 04:00 98.8 93 19 146/78 (100) 96 11/05/17 04:00 93 11/05/17 02:00 92 11/05/17 00:00 103 11/05/17 00:00 98.5 103 18 144/82 (102) 96 11/04/17 22:00 144 11/04/17 20:21 94 Nasal Cannula 3.50 11/04/17 20:00 98.7 128 27 141/61 (87) 94 11/04/17 20:00 128 11/04/17 19:00 94 Nasal Cannula 4.00 11/04/17 18:00 144 11/04/17 16:20 18 11/04/17 16:00 98.5 104 29 127/62 (83) 92 11/04/17 16:00 104 11/04/17 14:00 142 11/04/17 12:00 101 11/04/17 12:00 98.5 101 27 155/84 (107) 95 11/04/17 10:00 90 I/O 11/04/17 11/04/17 11/04/17 11/05/17 11/05/17 11/05/17 07:00 15:00 23:00 07:00 15:00 23:00 Intake Total 360 ml 350 ml 150 ml Output Total 75 ml 2500 ml 30 ml 50 ml Balance 285 ml -2500 ml 320 ml 100 ml Intake Oral 360 ml 350 ml 150 ml Output Urine Total 75 ml 30 ml 50 ml Hemodialysis 2500 ml # Bowel Movements 1 0 1 Result Diagram: 11/05/17 0643 11/05/17 0645 Imaging Last Impressions Chest X-Ray 11/04/17 0000 Signed Impressions: CONCLUSION: Minimal bibasilar parenchymal changes without pneumothorax or failure Abdomen/Pelvis CT 10/31/17 1500 Signed Impressions: CONCLUSION: 1. Stable right retroperitoneal hemorrhage. 2. Stable effusions and bibasilar consolidation. 3. Cholelithiasis. Although the gallbladder is well-distended I see no pericho lecystic fluid or gallbladder wall thickening. If assessment of acute cholecyst itis is needed I would suggest an ultrasound. Head CT 10/31/17 Signed Impressions: CONCLUSION: 1. Stable exam without evidence of acute infarct, hemorrhage, mass or edema. 2. No change compared to earlier study on 10/23 Brain MRI 10/24/17 06 Signed Impressions: CONCLUSION: Negative MR Brain non contrast. Neck Magnetic Resonance Angiography 10/24/17 Signed Impressions: CONCLUSION: Normal study __ Percent stenosis is calculated using the diameter of the stenotic region over t he diameter of the normal distal internal carotid artery Head Magnetic Resonance Angiography 10/24/17 Signed Impressions: CONCLUSION: Negative MRA Cow ([place] [facility] [place]) non contrast. Cervical Spine MRI 10/24/17 Signed Impressions: CONCLUSION: 1. 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 2. 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 3. Multilevel significant neural foraminal narrowing as detailed at each level in the above discussion. 4. Lesion involving the spinous process of T2. This is incompletely characteri zed on this exam. Consider CT scan to further assess. Bone Biopsy CT 10/23/17 Signed Impressions: CONCLUSION: 1. Uncomplicated CT guided bone marrow aspirate. 2. Uncomplicated CT guided bone marrow biopsy. Bone Osseous Survey 10/20/17 Signed Impressions: CONCLUSION: Ill-defined lucencies and patchy cortical thinning of multiple bones, primarily the long bones and especially the right tibia and fibula. Extensive multiple m yeloma could certainly have this appearance in the proper clinical setting. Renal Ultrasound 10/19/17 Signed Impressions: CONCLUSION: 1. Negative renal sonogram. Objective Remarks General: Elderly male in no acute distress. Heart: Tachycardic. No murmur. Lungs: Clear to auscultation bilaterally. No wheezes, rales, or rhonchi. Breathing is nonlabored. Abdomen: Soft, nontender, nondistended. Extremities: Trace to 1+ bilateral lower extremity edema. Psych: Alert and oriented. Neuro: Normal speech. No focal deficits noted. Procedures 10/23/17 CT-guided bone marrow biopsy 10/24/17 EGD 10/24/17 endotracheal intubation 10/26/17 right internal jugular Vas-Cath placement Urinary Catheter: Yes Assessment to: Continue Mathis insert reason: Measure Accurate Output Vascular Central Line Catheter: Yes Assessment to: Continue Date of Insertion: Oct 26, 2017 A/P Problem List: (1) Acute renal failure ICD Code: N17.9 - Acute kidney failure, unspecified Status: Acute (2) Hypercalcemia ICD Code: E83.52 - Hypercalcemia Status: Resolved (3) Symptomatic anemia ICD Code: D64.9 - Anemia, unspecified Status: Acute (4) Left leg DVT ICD Code: I82.402 - Acute embolism and thrombosis of unspecified deep veins of left lower extremity Status: Chronic (5) Type 2 diabetes mellitus ICD Code: E11.9 - Type 2 diabetes mellitus without complications Status: Acute (6) HTN (hypertension) ICD Code: I10 - Essential (primary) hypertension Status: Chronic Assessment and Plan 1. Acute encephalopathy: Resolved. 2. Hemorrhagic shock: Resolved. 3. Retroperitoneal hemorrhage: Nonoperative management recommended by vascular surgery. 4. Atrial fibrillation/flutter: Continue Cardizem, Lopressor. 5. Hypercalcemia: Resolved. Calcium now slightly low. 6. Acute renal failure superimposed on chronic kidney disease: Appreciate nephrology recommendations. Vas-Cath in place for hemodialysis. Patient would prefer not to be on dialysis. 7. MGUS, now apparently myeloma: Appreciate hematology/oncology recommendations. 8. Hypothyroidism: Continue Synthroid. 9. Hypertension: Continue Cardizem, Lopressor. Clonidine as needed. 10. Anemia: Status post transfusion of 3 units PRBCs during this hospitalization. 11. GI prophylaxis: PPI. 12. DVT prophylaxis: SCDs. 13. Palliative care assistance appreciated. Patient wants comfort care measures, but would like to discuss options with hematology/oncology so that his family can be included in the decision-making. If patient chooses, will consult hospice. 14. Hypokalemia: Supplement potassium. Eduard Uribe MD Nov 05, 2017 09:38
[2017-11-05] MEDS ORDERED: POTASSIUM CHLORIDE 10 MEQ CONTROLLED RELEASE TAB PO ONE (10:00)
[2017-11-05] MEDS ORDERED: POTASSIUM CHLORIDE 25 MEQ EFFERVESCENT TAB PO ONE (10:15)
--- NOTE | 2017-11-05 12:13 | HHI.NPPN ---
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 He has been having some fatigue and weakness over the past few weeks and a CBC showed a Hgb of 7.2 prompting evaluation at the hospital. The patient's is the primary historian. Was admitted here in Jun for a L femur fx that he sustained at home while turning while moving TV tray causing a twist and fall type injury on his left leg. reports spiral fracture of his left femur that he underwent ORIF. He subsequently developed a DVT in the same leg. Renal functions during that admission were overall normal with SCr at 0.8 baseline. Serum calcium normal at this admission at 8.6-9.0. In August, he developed A fib with RVR and had acute renal insufficiency though nephrology services were not called as his functions improved with correction of RVR (admitting SCr 2.40 on 08/29 and discharge on 09/01 at 1.74). Noted mild hypercalcemia during this admission at 10.7. 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 Byrne, but was many years ago as per the . Says that he never underwent bone marrow bx, but had multiple labs that "didn't change" so they opted to stop following up. Given his recent anemia, his PCP did refer him to Dr. Jordyn Garcia, but appointment not until November. No known CKD hx. Denies any recent NVD No NSAID use No recent abx. Besides the aforementioned health history as of recent, he has been in his usual state of health as per his . Has been on Calcium 600mg with 500IU Vitamin D, with an additional Vitamin D3 1000IU daily since his femur fx. Admitting SCr 2.11 that has improved to 4.47 at consult. Serum CCa 12.9 at admission Interval History Pt lethargic today and moaning and daughter present in room Yesterday, apparently the patient was leaning toward comfort care only without dialysis Today, however, his is reporting that he was more optimistic about continuing aggressive care including chemotherapy and hemodialysis He offers no opinion to me at time of examination Review of Systems General Constitutional: Fatigue General Remarks Unable to obtain Objective Data Data Vital Signs Date Time Temp Pulse Resp B/P (MAP) Pulse Ox O2 Delivery O2 Flow Rate FiO2 11/05/17 10:00 92 11/05/17 09:15 95 Nasal Cannula 3.50 11/05/17 08:00 97.7 98 22 140/83 (102) 97 11/05/17 08:00 98 11/05/17 07:00 96 Nasal Cannula 3.00 11/05/17 06:00 97 11/05/17 04:00 98.8 93 19 146/78 (100) 96 11/05/17 04:00 93 11/05/17 02:00 92 11/05/17 00:00 103 11/05/17 00:00 98.5 103 18 144/82 (102) 96 11/04/17 22:00 144 11/04/17 20:21 94 Nasal Cannula 3.50 11/04/17 20:00 98.7 128 27 141/61 (87) 94 11/04/17 20:00 128 11/04/17 19:00 94 Nasal Cannula 4.00 11/04/17 18:00 144 11/04/17 16:20 18 11/04/17 16:00 98.5 104 29 127/62 (83) 92 11/04/17 16:00 104 11/04/17 14:00 142 -: 11/05/17 0643 11/05/17 0645 Imaging Last Impressions Chest X-Ray 11/04/17 0000 Signed Impressions: CONCLUSION: Minimal bibasilar parenchymal changes without pneumothorax or failure Abdomen/Pelvis CT 10/31/17 1500 Signed Impressions: CONCLUSION: 1. Stable right retroperitoneal hemorrhage. 2. Stable effusions and bibasilar consolidation. 3. Cholelithiasis. Although the gallbladder is well-distended I see no pericho lecystic fluid or gallbladder wall thickening. If assessment of acute cholecyst itis is needed I would suggest an ultrasound. Head CT 10/31/17 0000 Signed Impressions: CONCLUSION: 1. Stable exam without evidence of acute infarct, hemorrhage, mass or edema. 2. No change compared to earlier study on 10/23 Brain MRI 10/24/17 0600 Signed Impressions: CONCLUSION: Negative MR Brain non contrast. Neck Magnetic Resonance Angiography 10/24/17 0000 Signed Impressions: CONCLUSION: Normal study __ Percent stenosis is calculated using the diameter of the stenotic region over t he diameter of the normal distal internal carotid artery Head Magnetic Resonance Angiography 10/24/17 Signed Impressions: CONCLUSION: Negative MRA Cow ([place] [facility] [place]) non contrast. Cervical Spine MRI 10/24/17 Signed Impressions: CONCLUSION: 1. 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 2. 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 3. Multilevel significant neural foraminal narrowing as detailed at each level in the above discussion. 4. Lesion involving the spinous process of T2. This is incompletely characteri zed on this exam. Consider CT scan to further assess. Bone Biopsy CT 10/23/17 Signed Impressions: CONCLUSION: 1. Uncomplicated CT guided bone marrow aspirate. 2. Uncomplicated CT guided bone marrow biopsy. Bone Osseous Survey 10/20/17 Signed Impressions: CONCLUSION: Ill-defined lucencies and patchy cortical thinning of multiple bones, primarily the long bones and especially the right tibia and fibula. Extensive multiple m yeloma could certainly have this appearance in the proper clinical setting. Renal Ultrasound 10/19/17 Signed Impressions: CONCLUSION: 1. Negative renal sonogram. Tubes & Lines: Vas-Cath Medication Review Current Medications Medications (Trade) Dose Ordered Sig/Reggie Route Start Time Stop Time Status Last Admin (NS Flush) 2 ml UNSCH PRN IV FLUSH 10/18/17 14:15 10/25/17 08:22 (NS Flush) 2 ml BID IV FLUSH 10/18/17 21:00 11/05/17 08:39 (Zofran Odt) 4 mg Q6H PRN PO 10/18/17 14:45 (Morphine Inj) 2 mg Q3H PRN IV 10/18/17 14:45 (Morphine Inj) 4 mg Q3H PRN IV 10/18/17 14:45 11/04/17 16:15 (Narcan Inj) 0.4 mg UNSCH PRN IV PUSH 10/18/17 14:15 10/24/17 06:58 (Vitamin D3) 2,000 units DAILY PO 10/19/17 09:00 11/05/17 08:38 (Synthroid) 75 mcg DAILY@0600 PO 10/19/17 06:00 11/05/17 05:36 (Theragran) 1 tab DAILY PO 10/19/17 09:00 11/05/17 08:39 (Pill Splitter) 1 ea UNSCH PRN OTHER 10/18/17 15:45 (Colace) 100 mg BID PO 10/18/17 21:00 11/04/17 20:53 (Catapres) 0.1 mg Q6H PRN PO 10/18/17 18:30 11/02/17 20:22 ([facility]) Patient in critical care unit? Ass... [id number] .XX 10/23/17 23:00 10/23/17 23:00 (Peridex 0.12% Liq) 15 ml BID@08,20 MT 10/24/17 20:00 11/04/17 20:00 (Pepcid) 10 mg BID PO 10/24/17 11:00 Future Hold 10/24/17 12:19 Heparin Sodium/ Dextrose 250 ml @ 18 mls/hr TITRATE PRN IV 10/24/17 17:45 Future hold 10/30/17 17:04 (Albuterol Neb) 2.5 mg Q2HR NEB PRN NEB 10/24/17 22:00 (Protonix Inj) 40 mg Q12H IV PUSH 10/25/17 21:00 11/05/17 08:39 (D50w (Vial) Inj) 50 ml UNSCH PRN IV PUSH 10/26/17 07:30 (Glucagon Inj) 1 mg UNSCH PRN OTHER 10/26/17 07:30 (NovoLOG SUPPLEMENTAL SCALE) 1 Q6H SQ 10/26/17 08:00 11/04/17 20:53 Sodium Chloride 1,000 ml @ 0 mls/hr Q0M PRN OTHER 10/26/17 12:43 Future Hold 11/02/17 21:46 (Heparin Inj) 8,000 units UNSCH PRN IV FLUSH 10/26/17 12:45 Future Hold Sodium Chloride 1,000 ml @ 200 mls/hr Q5H PRN IV 10/26/17 12:43 Future Hold Sodium Chloride 1,000 ml @ 0 mls/hr Q0M PRN OTHER 10/26/17 12:43 Future Hold Albumin Human 100 ml @ 60 mls/hr UNSCH PRN IV 10/26/17 12:45 Future Hold 10/26/17 16:00 (NS Flush) 5 ml UNSCH PRN IV FLUSH 10/26/17 12:45 Future Hold 11/02/17 21:45 (Heparin Inj) UNSCH PRN .XX 10/26/17 12:45 Future Hold 10/30/17 16:00 (Gentamicin Inj) 20 mg UNSCH PRN OTHER 10/26/17 12:45 Future Hold 11/02/17 21:44 (Benadryl) 25 mg UNSCH PRN PO 10/26/17 12:45 Future Hold 10/28/17 02:30 (Nitrostat Sl) 0.4 mg UNSCH PRN SL 10/26/17 12:45 Future Hold (Catapres) 0.1 mg UNSCH PRN PO 10/26/17 12:45 Future Hold (Gelfoam 12 Mm/7 Mm Top) 1 foam UNSCH PRN TOP 10/26/17 12:45 (Lopressor Inj) 5 mg Q6H PRN IV PUSH 10/28/17 02:15 Future Hold 10/29/17 00:47 (Lopressor Inj) 5 mg Q5M PRN IV PUSH 10/28/17 05:15 Future hold 11/04/17 23:05 (Duoneb Neb) 1 ampule Q2HR NEB PRN NEB 10/29/17 09:00 (Catapres) 0.1 mg Q8HR PO 10/29/17 09:00 Future Hold 10/30/17 20:35 Albumin Human 100 ml @ 60 mls/hr UNSCH PRN IV 11/01/17 17:30 (Dilaudid Pf Inj) 0.5 mg Q4H PRN IV PUSH 11/01/17 22:15 11/03/17 10:09 (Lopressor Inj) 5 mg Q5M PRN IV PUSH 11/02/17 01:45 11/04/17 02:13 (Lopressor Inj) 5 mg Q5M PRN IV PUSH 11/02/17 14:45 (Cardizem) 60 mg Q6H PO 11/03/17 08:00 11/05/17 08:39 (Lopressor) 50 mg Q12HR PO 11/04/17 09:00 11/05/17 08:39 Physical Exam General Appearance: Painful Eyes Eye Exam: Sclera White Pulmonary Resp Exam: Clear Bilaterally, Breath Sounds Equal, No Distress Cardiology CV Exam: Regular, Normal Sinus Rhythm Gastrointestinal/Abdomen GI Exam: Soft, Non-Tender Genitourinary Exam: Clear Urine Integumentary Skin Exam: Clear, Warm Extremeties Extremities Exam: Moderate Edema Neurologic Neuro Exam: Obtunded Assessment/Plan Discussed Condition With: Patient, Spouse Problem List: (1) Acute renal failure ICD Codes: N17.9 - Acute kidney failure, unspecified Status: Acute Plan: There is no signs of renal recovery at this point in time. Discussed again with the patient's and daughter regarding snf plans. They wish to speak with hematology/oncology before making any decisions. At this point in time, his prognosis is thought to be relatively poor given his co-morbidities and severely debilitated state. It cannot be ruled out, however, that the patient may regain renal function in the future. Appreciate opinion from palliative as well as heme/onc Will tentatively plan for HD tomorrow if the family is agreeable. K+ repletion as ordered Medications should be adjusted for the patient's renal decline. Avoid nephrotoxic agents such as iodinated contrast dyes and NSAIDs. Avoid gadolinium. (2) Hypercalcemia ICD Codes: E83.52 - Hypercalcemia Status: Resolved Plan: 2/2 to MM (3) Retroperitoneal hematoma ICD Codes: K66.1 - Hemoperitoneum Status: Acute Plan: Vascular surgical note reviewed. CTA deferred for now. (4) Atrial fibrillation ICD Codes: I48.91 - Unspecified atrial fibrillation Plan: Management as per primary team (5) HTN (hypertension) ICD Codes: I10 - Essential (primary) hypertension Status: Chronic Macarena Smith Nov 05, 2017 12:13
[2017-11-05] MEDS: MORPHINE SULFATE 4 MG/ML INJ IV PRN (13:57)
--- NOTE | 2017-11-05 19:53 | HHI.HCPN ---
Reason for visit a. To assist with evaluation and management of symptoms including: pain; confusion b. To assist medical decision maker(s) with: better understanding of current medical conditions; weighing benefits/burdens of medical treatment options; making medical treatment decisions. . Subjective/Interval History Patient is awake at time of my visit by taking him a long time to process information and answer questions. He continues to complain of abdominal / right sided hip and flank pain. He has received 2 doses of 4 mg IV morphine over the last 24 hours. the last dose was at around 14:00. He says the morphine helps the pain. Denies SOB. Bowels are moving. Eating only 0-10% of meals. Family reports patient was more alert and more optimistic this AM . They report he was interested in dialysis. Family reports they spoke to oncology today. They understood from that conversation that the patient would not be a candidate for any myeloma directed chemotherapy until he became stronger and it did not look like that would happen anytime in the near future if at all. Dialysis is supposed to take place tomorrow.. Family/friend interactions and both daughters present at bedside. We discusses options going forward with the patient. He had a difficult time processing information and weighing the benefits/burdens of treatment options. It took him about 20 minutes with family and me approaching the issue from different directions for him to decide that he did want to go forward with dialysis tomorrow. I am not sure, however, if we had had the conversation 15 minutes later if we would have gotten the same answer. I also spoke with privately. I let her know that because of the patient's cognitive weaknesses currently, she would have to be the guide for much of the decision making. I explained that he could think about dialysis but I don't think he can think about dialysis in relation to his multiple myeloma and the impact of not being able to receive any chemo in the near future. We also discussed whether or not it would make sense to place a perma-cath if treating the myeloma is not in the cards. She will continue to give this some thought. We also discussed resuscitation status and the benefits/burdens of that intervention. All agree that a resuscitation attempt would not make sense at this point in his illness. They agree to DNR status. . Advance Directives Living Will: Completed, but not made available Health Care Surrogate: Completed, but not made available Advance Directive Specifics Date completed: says there is an advance directive at home but she has not brought it in. Date of completion is unknown. . Health Care Surrogate(s): says there is an advance directive at home but she has not brought it in. Date of completion is unknown. says she is the designated health care surrogate , but we don't have the document. . Documented care wishes: No written documentation of health care wishes. . Significant change in goals: Aggressive care continues but resuscitation status changed to DNR on 11/05/17. . Objective Vital Signs Date Time Temp Pulse Resp B/P (MAP) Pulse Ox O2 Delivery O2 Flow Rate FiO2 11/05/17 18:00 96 11/05/17 16:00 98 11/05/17 16:00 98.0 98 23 169/77 (107) 97 11/05/17 14:18 20 11/05/17 14:00 95 11/05/17 12:00 98.1 94 22 148/77 (100) 96 11/05/17 12:00 94 11/05/17 10:00 92 11/05/17 09:15 95 Nasal Cannula 3.50 11/05/17 08:00 97.7 98 22 140/83 (102) 97 11/05/17 08:00 98 11/05/17 07:00 96 Nasal Cannula 3.00 11/05/17 06:00 97 11/05/17 04:00 98.8 93 19 146/78 (100) 96 11/05/17 04:00 93 11/05/17 02:00 92 11/05/17 00:00 103 11/05/17 00:00 98.5 103 18 144/82 (102) 96 11/04/17 22:00 144 11/04/17 20:21 94 Nasal Cannula 3.50 11/04/17 20:00 98.7 128 27 141/61 (87) 94 11/04/17 20:00 128 . Physical Exam CONSTITUTIONAL/GENERAL: This is an adequately nourished patient, awake,in an MICU bed. No obvious distress. Cognitively slow, but answers mostly appropriate TUBES/LINES/DRAINS: Nasal cannula oxygen; Mathis catheter; peripheral IV; vas cath right jugular vein SKIN: No jaundice, rashes, or lesions. No wounds seen anteriorly. Skin temperature appropriate. Not diaphoretic. EYES: Pupils equal and round. Extraocular motions intact. No scleral icterus. No injection or drainage. Fundi not examined. ENT: Hearing grossly normal. Nose without bleeding or purulent drainage. Throat without visible erythema, exudates, masses, or lesions. NECK: Trachea midline. Supple, nontender. CARDIOVASCULAR: Normal rate. Irregularly irregular rhythm without murmurs, gallops, or rubs. No JVD. RESPIRATORY/CHEST: Symmetric, unlabored respirations. Clear to auscultation. Breath sounds equal bilaterally. No wheezes, rales, or rhonchi. GASTROINTESTINAL: Abdomen soft, non-tender, nondistended. No hepato-splenomegaly , or palpable masses. No guarding. Bowel sounds present. GENITOURINARY: Without palpable bladder distension. Mathis catheter in place. Blood-tinged urine in Mathis catheter. MUSCULOSKELETAL: Extremities without clubbing, cyanosis. Moderate edema in both lower extremities. No mottling. LYMPHATICS: Not examined. NEUROLOGICAL: Awake and alert. Motor and sensory grossly within normal limits. Follows commands. Moves all extremities. Processes questions slowly. PSYCHIATRIC: No obvious anxiety/depression. No apparent hallucinations or other psychotic thought process. . Diagnostic Tests Laboratory Laboratory Tests Test 11/03/17 00:51 11/03/17 05:52 11/04/17 06:47 11/05/17 06:43 Hemoglobin 9.0 GM/DL (13.0-17.0) 8.9 GM/DL (13.0-17.0) 8.7 GM/DL (13.0-17.0) 9.6 GM/DL (13.0-17.0) Hematocrit 26.7 % (39.0-51.0) 27.0 % (39.0-51.0) 25.9 % (39.0-51.0) 28.4 % (39.0-51.0) White Blood Count 12.7 TH/MM3 (4.0-11.0) 10.2 TH/MM3 (4.0-11.0) 9.9 TH/MM3 (4.0-11.0) Red Blood Count 3.13 MIL/MM3 (4.50-5.90) 3.04 MIL/MM3 (4.50-5.90) 3.32 MIL/MM3 (4.50-5.90) Mean Corpuscular Volume 86.4 FL (80.0-100.0) 85.2 FL (80.0-100.0) 85.4 FL (80.0-100.0) Mean Corpuscular Hemoglobin 28.5 PG (27.0-34.0) 28.7 PG (27.0-34.0) 28.7 PG (27.0-34.0) Mean Corpuscular Hemoglobin Concent 33.0 % (32.0-36.0) 33.7 % (32.0-36.0) 33.6 % (32.0-36.0) Red Cell Distribution Width 15.5 % (11.6-17.2) 15.5 % (11.6-17.2) 15.6 % (11.6-17.2) Platelet Count 138 TH/MM3 (150-450) 154 TH/MM3 (150-450) 166 TH/MM3 (150-450) Mean Platelet Volume 7.9 FL (7.0-11.0) 8.1 FL (7.0-11.0) 7.8 FL (7.0-11.0) Neutrophils (%) (Auto) 93.3 % (16.0-70.0) 90.2 % (16.0-70.0) 86.8 % (16.0-70.0) Lymphocytes (%) (Auto) 2.2 % (9.0-44.0) 3.5 % (9.0-44.0) 6.1 % (9.0-44.0) Monocytes (%) (Auto) 3.4 % (0.0-8.0) 3.3 % (0.0-8.0) 3.9 % (0.0-8.0) Eosinophils (%) (Auto) 0.9 % (0.0-4.0) 2.8 % (0.0-4.0) 2.7 % (0.0-4.0) Basophils (%) (Auto) 0.2 % (0.0-2.0) 0.2 % (0.0-2.0) 0.5 % (0.0-2.0) Neutrophils # (Auto) 11.8 TH/MM3 (1.8-7.7) 9.2 TH/MM3 (1.8-7.7) 8.6 TH/MM3 (1.8-7.7) Lymphocytes # (Auto) 0.3 TH/MM3 (1.0-4.8) 0.4 TH/MM3 (1.0-4.8) 0.6 TH/MM3 (1.0-4.8) Monocytes # (Auto) 0.4 TH/MM3 (0-0.9) 0.3 TH/MM3 (0-0.9) 0.4 TH/MM3 (0-0.9) Eosinophils # (Auto) 0.1 TH/MM3 (0-0.4) 0.3 TH/MM3 (0-0.4) 0.3 TH/MM3 (0-0.4) Basophils # (Auto) 0.0 TH/MM3 (0-0.2) 0.0 TH/MM3 (0-0.2) 0.0 TH/MM3 (0-0.2) CBC Comment AUTO DIFF DIFF FINAL AUTO DIFF Differential Total Cells Counted 100 100 Neutrophils % (Manual) 94 % (16-70) 90 % (16-70) Band Neutrophils % 1 % (0-6) 3 % (0-6) Lymphocytes % 3 % (9-44) 3 % (9-44) Monocytes % 1 % (0-8) 1 % (0-8) Eosinophils % 1 % (0-4) 1 % (0-4) Neutrophils # (Manual) 12.1 TH/MM3 (1.8-7.7) 9.4 TH/MM3 (1.8-7.7) Nucleated Red Blood Cells 3 /100 WBC (0-0) Differential Comment FINAL DIFF MANUAL FINAL DIFF MANUAL Platelet Estimate LOW (NORMAL) NORMAL (NORMAL) Platelet Morphology Comment NORMAL (NORMAL) NORMAL (NORMAL) Blood Urea Nitrogen 34 MG/DL (7-18) 53 MG/DL (7-18) Creatinine 3.67 MG/DL (0.60-1.30) 5.42 MG/DL (0.60-1.30) Random Glucose 96 MG/DL (74-106) 125 MG/DL (74-106) Total Protein 5.9 GM/DL (6.4-8.2) 5.9 GM/DL (6.4-8.2) Albumin 2.4 GM/DL (3.4-5.0) 2.5 GM/DL (3.4-5.0) Calcium Level 7.6 MG/DL (8.5-10.1) 7.6 MG/DL (8.5-10.1) Alkaline Phosphatase 75 U/L (45-117) 86 U/L (45-117) Aspartate Amino Transf (AST/SGOT) 90 U/L (15-37) 50 U/L (15-37) Alanine Aminotransferase (ALT/SGPT) 147 U/L (12-78) 116 U/L (12-78) Total Bilirubin 1.3 MG/DL (0.2-1.0) 0.7 MG/DL (0.2-1.0) Sodium Level 139 MEQ/L (136-145) 140 MEQ/L (136-145) Potassium Level 3.6 MEQ/L (3.5-5.1) 3.3 MEQ/L (3.5-5.1) Chloride Level 101 MEQ/L (98-107) 101 MEQ/L (98-107) Carbon Dioxide Level 25.7 MEQ/L (21.0-32.0) 26.5 MEQ/L (21.0-32.0) Anion Gap 12 MEQ/L (5-15) 13 MEQ/L (5-15) Estimat Glomerular Filtration Rate 16 ML/MIN (>89) 10 ML/MIN (>89) Metamyelocytes 1 % (0-1) Myelocytes 1 % (0-0) Ovalocytes 1+ (NORMAL) Test 11/05/17 06:45 Blood Urea Nitrogen 36 MG/DL (7-18) Creatinine 4.66 MG/DL (0.60-1.30) Random Glucose 109 MG/DL (74-106) Total Protein 6.3 GM/DL (6.4-8.2) Albumin 2.7 GM/DL (3.4-5.0) Calcium Level 7.6 MG/DL (8.5-10.1) Alkaline Phosphatase 102 U/L (45-117) Aspartate Amino Transf (AST/SGOT) 41 U/L (15-37) Alanine Aminotransferase (ALT/SGPT) 106 U/L (12-78) Total Bilirubin 0.8 MG/DL (0.2-1.0) Sodium Level 142 MEQ/L (136-145) Potassium Level 3.2 MEQ/L (3.5-5.1) Chloride Level 101 MEQ/L (98-107) Carbon Dioxide Level 30.5 MEQ/L (21.0-32.0) Anion Gap 11 MEQ/L (5-15) Estimat Glomerular Filtration Rate 12 ML/MIN (>89) . Result Diagram: 11/05/17 0643 11/05/17 0645 Microbiology Microbiology Date/Time Source Procedure Growth Status 10/24/17 13:55 Blood Peripheral Aerobic Blood Culture - Final NO GROWTH IN 5 DAYS Complete 10/24/17 13:55 Blood Peripheral Anaerobic Blood Culture - Final NO GROWTH IN 5 DAYS Complete 10/19/17 12:30 Stool Stool Stool Occult Blood (NAOMI) - Final HEMOCCULT NEGATIVE Complete 10/24/17 09:11 Sputum Endotracheal Gram Stain - Final Complete 10/24/17 09:11 Sputum Endotracheal Sputum Culture - Final HEAVY GROWTH NORMAL RESPIRATORY JANENE Complete 10/24/17 09:00 Urine Catheterized Urine Urine Culture - Final NO GROWTH IN 48 HOURS. Complete . Imaging Last Impressions Chest X-Ray 11/04/17 0000 Signed Impressions: CONCLUSION: Minimal bibasilar parenchymal changes without pneumothorax or failure Abdomen/Pelvis CT 10/31/17 1500 Signed Impressions: CONCLUSION: 1. Stable right retroperitoneal hemorrhage. 2. Stable effusions and bibasilar consolidation. 3. Cholelithiasis. Although the gallbladder is well-distended I see no pericho lecystic fluid or gallbladder wall thickening. If assessment of acute cholecyst itis is needed I would suggest an ultrasound. Head CT 10/31/17 0000 Signed Impressions: CONCLUSION: 1. Stable exam without evidence of acute infarct, hemorrhage, mass or edema. 2. No change compared to earlier study on 10/23 Brain MRI 10/24/17 0600 Signed Impressions: CONCLUSION: Negative MR Brain non contrast. Neck Magnetic Resonance Angiography 10/24/17 0000 Signed Impressions: CONCLUSION: Normal study __ Percent stenosis is calculated using the diameter of the stenotic region over t he diameter of the normal distal internal carotid artery Head Magnetic Resonance Angiography 10/24/17 Signed Impressions: CONCLUSION: Negative MRA [place] ([place] [facility] [place]) non contrast. Cervical Spine MRI 10/24/17 Signed Impressions: CONCLUSION: 1. 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 2. 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 3. Multilevel significant neural foraminal narrowing as detailed at each level in the above discussion. 4. Lesion involving the spinous process of T2. This is incompletely characteri zed on this exam. Consider CT scan to further assess. Bone Biopsy CT 10/23/17 Signed Impressions: CONCLUSION: 1. Uncomplicated CT guided bone marrow aspirate. 2. Uncomplicated CT guided bone marrow biopsy. Bone Osseous Survey 10/20/17 Signed Impressions: CONCLUSION: Ill-defined lucencies and patchy cortical thinning of multiple bones, primarily the long bones and especially the right tibia and fibula. Extensive multiple m yeloma could certainly have this appearance in the proper clinical setting. Renal Ultrasound 10/19/17 Signed Impressions: CONCLUSION: 1. Negative renal sonogram. . Procedures Intubation/mechanical ventilation Bone marrow biopsy Vas-cath placement . Assessment and Plan Disease Oriented Problem List: (1) Multiple myeloma (2) Acute renal failure (3) Retroperitoneal hematoma (4) Anemia (5) Atrial fibrillation (6) Type 2 diabetes mellitus (7) Hypothyroidism (8) Hypercalcemia Symptom Scale: (1) Pain 0-10 Scale: 8 Comment: Pain appears to be mostly originating from retroperitoneal hematoma. Helped by morphine which has a long duration of action due to renal failure. . (2) Encephalopathy 0-10 Scale: Unable to quantify Comment: Patient has intermittent confusion that is probably a multi-factor encephalopathy -- uremia, medications, etc. . Pertinent Non-Medical Issues Psychosocial: Well supported by spouse and 4 children. Two sons live locally. Spiritual: Druze. 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 Legal: reports he has completed an advance directive. She has not brought it in yet. Ethical issues impacting care: Patient remains capacitated to make his own health care decisions. . Important Contacts * Jade Mcintosh (spouse) [phone]; [phone] . Prognosis Patient remains quite debilitated since his early June when he fell and fractured his hip. He seems to have evolved from a Monoclonal Gammopathy of Uncertain Significance to multiple myeloma. Since October 18, when he was admitted , he has been having complications and setbacks including bleeding ( retroperitineal hematoma); renal failure now requiring regular dialysis; episodes of altered mental status; hypotension. The patient is now deconditioned and getting him mobile again will be difficult. The patient is tired and no longer wants to fight. He has been very clear that he wants to forego further life prolonging measures and focus on comfort care. It is feasible that some improved quality of life might be a possibility if he continues with dialysis, accepts chemotherapy, and work hard in rehab. He does not want any of those. If he opts for comfort centered care, he would be a candidate for hospice. . . Code Status: No Code Plan == Code Status -- NO CODE . Family had requested this. Family is in agreement now and order changed to DNR status on 11/05/17 == Decision making: Patient is intermittently confused and takes a while to process information. When most alert and opoids are clear, he is probably capacitated. When dialysis is due and he is using opioids, he needs help with decisions. There is an advance directive somewhere but is not wanting to bring it in. Unless we see otherwise in an advance directive, would be the proxy decision maker when patient is incapacitated. == Goals of medical treatment. Patient was quite clear he wanted comfort measures only on 11/04 and is less clear on 11/05/17. Family remains reluctant to give up aggressive care short of resuscitation until they feel the patient is sure. == Symptoms * Pain: Pain has mostly been in the right hip/flank area and has been attributed to his hematoma. He also has discomfort from prolonged bedbound status. He is getting reasonable relief from opiate anaglesics. * Encephalopathy: Intermittent confusion probably from multi-factorial delirium. This is mild. Recommend non-pharmacologic approach only at this time. == Given patient's level of renal failure, may want to consider fentanyl as primary analgesic rather than morphine or hydrmorphone. The traditional opiates will be very long acting on non-dialysis days when they cannot be metabolized well and then will be dialyzed off on dialysis days. Frequent PRN doses of short acting fentanyl may be better. == Dialysis to go forward on 11/06/17. Still a great deal of ambivalence regarding whether to place a perma-cath given he is likely not going to be a candidate in the future for myeloma directed chemotherapy. == Palliative care will continue to follow to assist with symptom management and to further clarify goals of medical treatment as the clinical course evolves. . . Time Spent Total Floor Time (mins): 45 (Total floor time included chart review; patient exam; above referenced bedside conference with family and patient; collaboration with primary nurse.) Face to Face Time (mins): 25 >50% Counseling/Coord of Care: Yes Attestation To help prompt me to consider important information that might be impacting today's encounter and assessment, information from prior notes written by myself or my colleagues may have been "brought forward" into today's note. My signature on this note, however, is an attestation that I personally performed the exam, history, and/or decision-making noted today, and, unless otherwise indicated, the interactions with patient, family, and staff as well as the review of records all occurred today. I also attest that the listed assessment and stated plan reflect my best clinical judgment today based on the combination of historical information, prior notes, and today's exam/ interactions. When time spent is documented, it refers only to time spent today by the signer, or if indicated, combined time spent today by collaborating physician/nurse practitioner. . Wayne Randall MD Nov 05, 2017 19:53
--- NOTE | 2017-11-05 23:00 | PD.ONC.PN ---
Subjective Subjective Remarks continue to be on the ICU overall weak and deconditioned ongoing dialysis present during rounds Objective Data Date Time Temp Pulse Resp B/P (MAP) Pulse Ox O2 Delivery O2 Flow Rate FiO2 11/05/17 22:00 99 11/05/17 20:50 98 Nasal Cannula 3.50 11/05/17 20:00 98.8 99 19 124/77 (93) 98 11/05/17 20:00 99 11/05/17 19:00 95 Nasal Cannula 2.00 11/05/17 18:00 96 11/05/17 16:00 98 11/05/17 16:00 98.0 98 23 169/77 (107) 97 11/05/17 14:18 20 11/05/17 14:00 95 11/05/17 12:00 98.1 94 22 148/77 (100) 96 11/05/17 12:00 94 11/05/17 10:00 92 11/05/17 09:15 95 Nasal Cannula 3.50 11/05/17 08:00 97.7 98 22 140/83 (102) 97 11/05/17 08:00 98 11/05/17 07:00 96 Nasal Cannula 3.00 11/05/17 06:00 97 11/05/17 04:00 98.8 93 19 146/78 (100) 96 11/05/17 04:00 93 11/05/17 02:00 92 11/05/17 00:00 103 11/05/17 00:00 98.5 103 18 144/82 (102) 96 11/05/17 11/05/17 11/05/17 07:00 15:00 23:00 Intake Total 150 ml 750 ml Output Total 50 ml 50 ml Balance 100 ml 700 ml Result Diagram: 11/05/17 0643 11/05/17 0645 Laboratory Results Laboratory Tests Test 11/05/17 06:43 11/05/17 06:45 White Blood Count 9.9 TH/MM3 Red Blood Count 3.32 MIL/MM3 Hemoglobin 9.6 GM/DL Hematocrit 28.4 % Mean Corpuscular Volume 85.4 FL Mean Corpuscular Hemoglobin 28.7 PG Mean Corpuscular Hemoglobin Concent 33.6 % Red Cell Distribution Width 15.6 % Platelet Count 166 TH/MM3 Mean Platelet Volume 7.8 FL Neutrophils (%) (Auto) 86.8 % Lymphocytes (%) (Auto) 6.1 % Monocytes (%) (Auto) 3.9 % Eosinophils (%) (Auto) 2.7 % Basophils (%) (Auto) 0.5 % Neutrophils # (Auto) 8.6 TH/MM3 Lymphocytes # (Auto) 0.6 TH/MM3 Monocytes # (Auto) 0.4 TH/MM3 Eosinophils # (Auto) 0.3 TH/MM3 Basophils # (Auto) 0.0 TH/MM3 CBC Comment AUTO DIFF Differential Total Cells Counted 100 Neutrophils % (Manual) 90 % Band Neutrophils % 3 % Lymphocytes % 3 % Monocytes % 1 % Eosinophils % 1 % Neutrophils # (Manual) 9.4 TH/MM3 Metamyelocytes 1 % Myelocytes 1 % Differential Comment FINAL DIFF MANUAL Platelet Estimate NORMAL Platelet Morphology Comment NORMAL Ovalocytes 1+ Blood Urea Nitrogen 36 MG/DL Creatinine 4.66 MG/DL Random Glucose 109 MG/DL Total Protein 6.3 GM/DL Albumin 2.7 GM/DL Calcium Level 7.6 MG/DL Alkaline Phosphatase 102 U/L Aspartate Amino Transf (AST/SGOT) 41 U/L Alanine Aminotransferase (ALT/SGPT) 106 U/L Total Bilirubin 0.8 MG/DL Sodium Level 142 MEQ/L Potassium Level 3.2 MEQ/L Chloride Level 101 MEQ/L Carbon Dioxide Level 30.5 MEQ/L Anion Gap 11 MEQ/L Estimat Glomerular Filtration Rate 12 ML/MIN Administered Medications Medications (Trade) Dose Ordered Sig/Reggie Route PRN Reason Start Time Stop Time Status Last Admin Dose Admin Sodium Chloride (NS Flush) 2 ml UNSCH PRN IV FLUSH FLUSH AFTER USING IV ACCESS 10/18/17 14:15 10/25/17 08:22 Sodium Chloride (NS Flush) 2 ml BID IV FLUSH 10/18/17 21:00 11/05/17 20:20 Morphine Sulfate (Morphine Inj) 4 mg Q3H PRN IV Pain 6-10;if unable to take PO 10/18/17 14:45 11/05/17 13:57 Naloxone HCl (Narcan Inj) 0.4 mg UNSCH PRN IV PUSH SEE LABEL COMMENTS 10/18/17 14:15 10/24/17 06:58 Cholecalciferol (Vitamin D3) 2,000 units DAILY PO 10/19/17 09:00 11/05/17 08:38 Levothyroxine Sodium (Synthroid) 75 mcg DAILY@0600 PO 10/19/17 06:00 11/05/17 05:36 Multivitamins (Theragran) 1 tab DAILY PO 10/19/17 09:00 11/05/17 08:39 Docusate Sodium (Colace) 100 mg BID PO 10/18/17 21:00 11/04/17 20:53 Clonidine (Catapres) 0.1 mg Q6H PRN PO SBP>160, DBP>90 10/18/17 18:30 11/02/17 20:22 Miscellaneous Information ([facility]) Patient in critical care unit? Ass... [id number] .XX 10/23/17 23:00 10/23/17 23:00 Chlorhexidine Gluconate (Peridex 0.12% Liq) 15 ml BID@08,20 MT 10/24/17 20:00 11/05/17 20:00 Famotidine (Pepcid) 10 mg BID PO 10/24/17 11:00 Future Hold 10/24/17 12:19 Heparin Sodium/ Dextrose 250 ml @ 18 mls/hr TITRATE PRN IV Coagulation Management 10/24/17 17:45 Future hold 10/30/17 17:04 Pantoprazole Sodium (Protonix Inj) 40 mg Q12H IV PUSH 10/25/17 21:00 11/05/17 20:20 Insulin Aspart (NovoLOG SUPPLEMENTAL SCALE) 1 Q6H SQ 10/26/17 08:00 11/04/17 20:53 Sodium Chloride 1,000 ml @ 0 mls/hr Q0M PRN OTHER For Prime & Rinse Back 10/26/17 12:43 Future Hold 11/02/17 21:46 Albumin Human 100 ml @ 60 mls/hr UNSCH PRN IV WITH DIALYSIS 10/26/17 12:45 Future Hold 10/26/17 16:00 Sodium Chloride (NS Flush) 5 ml UNSCH PRN IV FLUSH WITH DIALYSIS 10/26/17 12:45 Future Hold 11/02/17 21:45 Heparin Sodium (Porcine) (Heparin Inj) UNSCH PRN .XX WITH DIALYSIS 10/26/17 12:45 Future Hold 10/30/17 16:00 Gentamicin Sulfate (Gentamicin Inj) 20 mg UNSCH PRN OTHER WITH DIALYSIS 10/26/17 12:45 Future Hold 11/02/17 21:44 Diphenhydramine HCl (Benadryl) 25 mg UNSCH PRN PO for hives/itching/anaphylaxis 10/26/17 12:45 Future Hold 10/28/17 02:30 Metoprolol Tartrate (Lopressor Inj) 5 mg Q6H PRN IV PUSH HR > 100 10/28/17 02:15 Future Hold 10/29/17 00:47 Metoprolol Tartrate (Lopressor Inj) 5 mg Q5M PRN IV PUSH HR>100 10/28/17 05:15 Future hold 11/04/17 23:05 Clonidine (Catapres) 0.1 mg Q8HR PO 10/29/17 09:00 Future Hold 10/30/17 20:35 Hydromorphone HCl (Dilaudid Pf Inj) 0.5 mg Q4H PRN IV PUSH breakthough pain 11/01/17 22:15 11/03/17 10:09 Metoprolol Tartrate (Lopressor Inj) 5 mg Q5M PRN IV PUSH HR>100 11/02/17 01:45 11/04/17 02:13 Diltiazem HCl (Cardizem) 60 mg Q6H PO 11/03/17 08:00 11/05/17 20:20 Metoprolol Tartrate (Lopressor) 50 mg Q12HR PO 11/04/17 09:00 11/05/17 20:20 Objective Remarks GENERAL: nad, ill appearing SKIN: Warm and dry. LYMPHATIC: No adenopathy. CARDIOVASCULAR: Regular rate and rhythm without murmurs. RESPIRATORY: Breath sounds equal bilaterally. No accessory muscle use. GASTROINTESTINAL: Abdomen soft, non-tender, nondistended. EXTREMITIES: No cyanosis, or edema. Assessment/Plan Assessment 82y/o male with anemia, hypercalcemia, and acute renal failure on presentation and now the a diagnosis of Multiple Myeloma h/o MGUS, hypertension, chronic kidney disease, hypothyroidism, colon cancer, anemia. Plan 1. IgG kappa multiple myeloma with bone marrow involvement as well as skeletal metastases. - remains very ill and weak, - had discussion with patient's - explained to her that Myeloma is treatable but the patient is functionally not capable of receiving any therapy - Outpatient treatment will involve weakly clinic visits and lab monitoring, he would also need to receive ongoing dialysis - Patient's stated that she would like to consider [facility] placement-- but understands that it may not be possible given how weak he is. - She wants to discuss with family before making any decisions Chandler Love MD Nov 05, 2017 23:00
[2017-11-06] VITALS (16 sets, daily range): BP systolic 118–151; BP diastolic 57–111; PULSE 89–146; RESP 16–29; TEMP 97.7–99.3; O2SAT 91–98
[2017-11-06] MEDS: INSULIN ASPART SUPPLEMENTAL SCALE SQ SCH ×4 (01:27→20:00)
[2017-11-06] MEDS: DILTIAZEM HCL 60 MG TAB PO SCH ×4 (01:27→20:54)
[2017-11-06 05:07] LABS: AUTOMATED NEUTROPHIL # 7.7 TH/MM3 (1.8-7.7); BASOPHIL % 0.4 % (0.0-2.0); EOSINOPHIL # 0.3 TH/MM3 (0-0.4); EOSINOPHIL % 3.1 % (0.0-4.0); HEMATOCRIT 28.1 % (39.0-51.0); HEMOGLOBIN 9.3 GM/DL (13.0-17.0); LYMPH % 6.2 % (9.0-44.0); LYMPHOCYTE # 0.6 TH/MM3 (1.0-4.8); MEAN CELL VOLUME 85.7 FL (80.0-100.0); MEAN CORPUSCULAR HEMOGLOBIN 28.4 PG (27.0-34.0); MEAN CORPUSCULAR HGB CONC 33.1 % (32.0-36.0); MEAN PLATELET VOLUME 7.7 FL (7.0-11.0); MONO % 5.3 % (0.0-8.0); MONOCYTE # 0.5 TH/MM3 (0-0.9); PLATELET COUNT 158 TH/MM3 (150-450); RED BLOOD COUNT 3.28 MIL/MM3 (4.50-5.90); RED CELL DISTRIBUTION WIDTH 15.4 % (11.6-17.2); WHITE BLOOD COUNT 9.1 TH/MM3 (4.0-11.0)
[2017-11-06 05:26] LABS: BICARBONATE 25.9 MEQ/L (21.0-32.0); CALCIUM 7.6 MG/DL (8.5-10.1); CREATININE 5.91 MG/DL (0.60-1.30); MAGNESIUM 2.6 MG/DL (1.5-2.5)
[2017-11-06] MEDS: LEVOTHYROXINE SODIUM 75 MCG TAB PO SCH (05:31)
[2017-11-06] MEDS: CHLORHEXIDINE 0.12% (ORAL KIT) 15 ML CUP MT SCH ×2 (08:00→20:00)
[2017-11-06] MEDS: MORPHINE SULFATE 4 MG/ML INJ IV PRN ×3 (08:12→20:53)
[2017-11-06] MEDS: SODIUM CHLORIDE 0.9% FLUSH 10 ML FLUSH IV FLUSH SCH ×2 (08:13→20:54)
[2017-11-06] MEDS: METOPROLOL TARTRATE 50 MG TAB PO SCH ×2 (09:35→20:54)
--- NOTE | 2017-11-06 10:01 | HHI.PR ---
Subjective Remarks Follow-up myeloma, renal failure. Patient seen during dialysis. He is sleeping , but awakens to verbal stimuli. He states that he feels okay today. He denies chest pain or dyspnea. Objective Vitals Vital Signs Date Time Temp Pulse Resp B/P (MAP) Pulse Ox O2 Delivery O2 Flow Rate FiO2 11/06/17 08:49 93 Nasal Cannula 2.00 11/06/17 08:00 97.7 133 29 151/111 (124) 95 11/06/17 08:00 133 11/06/17 08:00 95 2.00 11/06/17 06:00 93 11/06/17 04:00 98.7 94 19 146/76 (99) 95 11/06/17 04:00 94 11/06/17 02:00 93 11/06/17 00:00 89 11/06/17 00:00 98.5 89 19 120/67 (84) 95 11/05/17 22:00 99 11/05/17 20:50 98 Nasal Cannula 3.50 11/05/17 20:00 98.8 99 19 124/77 (93) 98 11/05/17 20:00 99 11/05/17 19:00 95 Nasal Cannula 2.00 11/05/17 18:00 96 11/05/17 16:00 98 11/05/17 16:00 98.0 98 23 169/77 (107) 97 11/05/17 14:18 20 11/05/17 14:00 95 11/05/17 12:00 98.1 94 22 148/77 (100) 96 11/05/17 12:00 94 11/05/17 10:00 92 I/O 11/05/17 11/05/17 11/05/17 11/06/17 11/06/17 11/06/17 07:00 15:00 23:00 07:00 15:00 23:00 Intake Total 150 ml 750 ml 200 ml Output Total 50 ml 50 ml 50 ml Balance 100 ml 700 ml 150 ml Intake Oral 150 ml 750 ml 200 ml Output Urine Total 50 ml 50 ml 50 ml # Bowel Movements 1 1 Result Diagram: 11/06/17 0427 11/06/17 0427 Imaging Last Impressions Chest X-Ray 11/04/17 0000 Signed Impressions: CONCLUSION: Minimal bibasilar parenchymal changes without pneumothorax or failure Abdomen/Pelvis CT 10/31/17 1500 Signed Impressions: CONCLUSION: 1. Stable right retroperitoneal hemorrhage. 2. Stable effusions and bibasilar consolidation. 3. Cholelithiasis. Although the gallbladder is well-distended I see no pericho lecystic fluid or gallbladder wall thickening. If assessment of acute cholecyst itis is needed I would suggest an ultrasound. Head CT 10/31/17 0000 Signed Impressions: CONCLUSION: 1. Stable exam without evidence of acute infarct, hemorrhage, mass or edema. 2. No change compared to earlier study on 10/23 Brain MRI 10/24/17 0600 Signed Impressions: CONCLUSION: Negative MR Brain non contrast. Neck Magnetic Resonance Angiography 10/24/17 0000 Signed Impressions: CONCLUSION: Normal study __ Percent stenosis is calculated using the diameter of the stenotic region over t he diameter of the normal distal internal carotid artery Head Magnetic Resonance Angiography 10/24/17 0000 Signed Impressions: CONCLUSION: Negative MRA [place] ([place]) non contrast. Cervical Spine MRI 10/24/17 0000 Signed Impressions: CONCLUSION: 1. 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 2. 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 3. Multilevel significant neural foraminal narrowing as detailed at each level in the above discussion. 4. Lesion involving the spinous process of T2. This is incompletely characteri zed on this exam. Consider CT scan to further assess. Bone Biopsy CT 10/23/17 0000 Signed Impressions: CONCLUSION: 1. Uncomplicated CT guided bone marrow aspirate. 2. Uncomplicated CT guided bone marrow biopsy. Bone Osseous Survey 10/20/17 0000 Signed Impressions: CONCLUSION: Ill-defined lucencies and patchy cortical thinning of multiple bones, primarily the long bones and especially the right tibia and fibula. Extensive multiple m yeloma could certainly have this appearance in the proper clinical setting. Renal Ultrasound 10/19/17 0000 Signed Impressions: CONCLUSION: 1. Negative renal sonogram. Objective Remarks General: Elderly male in no acute distress. Heart: Tachycardic. No murmur. Lungs: Clear to auscultation bilaterally. No wheezes, rales, or rhonchi. Breathing is nonlabored. Abdomen: Soft, nontender, nondistended. Extremities: Trace to 1+ bilateral lower extremity edema. Psych: Sleeping, but awakens and answers questions appropriately. Neuro: Normal speech. No focal deficits noted. Procedures 10/23/17 CT-guided bone marrow biopsy 10/24/17 EGD 10/24/17 endotracheal intubation 10/26/17 right internal jugular Vas-Cath placement Urinary Catheter: Yes Assessment to: Continue Mathis insert reason: Measure Accurate Output Date of Insertion: Oct 26, 2017 A/P Problem List: (1) Acute renal failure ICD Code: N17.9 - Acute kidney failure, unspecified Status: Acute (2) Hypercalcemia ICD Code: E83.52 - Hypercalcemia Status: Resolved (3) Symptomatic anemia ICD Code: D64.9 - Anemia, unspecified Status: Acute (4) Left leg DVT ICD Code: I82.402 - Acute embolism and thrombosis of unspecified deep veins of left lower extremity Status: Chronic (5) Type 2 diabetes mellitus ICD Code: E11.9 - Type 2 diabetes mellitus without complications Status: Acute (6) HTN (hypertension) ICD Code: I10 - Essential (primary) hypertension Status: Chronic Assessment and Plan 1. Acute encephalopathy: Resolved. 2. Hemorrhagic shock: Resolved. 3. Retroperitoneal hemorrhage: Nonoperative management recommended by vascular surgery. 4. Atrial fibrillation/flutter: Continue Cardizem, Lopressor. 5. Hypercalcemia: Resolved. Calcium now slightly low. 6. Acute renal failure superimposed on chronic kidney disease: Appreciate nephrology recommendations. Vas-Cath in place for hemodialysis. Patient would prefer not to be on dialysis, but did agree to have hemodialysis today. 7. MGUS, now apparently myeloma: Appreciate hematology/oncology recommendations. 8. Hypothyroidism: Continue Synthroid. 9. Hypertension: Continue Cardizem, Lopressor. Clonidine as needed. 10. Anemia: Status post transfusion of 8 units PRBCs during this hospitalization. H&H are stable. 11. GI prophylaxis: PPI. 12. DVT prophylaxis: SCDs. 13. Palliative care assistance appreciated. Patient wants comfort care measures, but would like to discuss options with hematology/oncology so that his family can be included in the decision-making. If patient chooses comfort care only, we will consult hospice. 14. Hypokalemia: Still low. Supplement potassium. Eduard Uribe MD Nov 06, 2017 10:01
[2017-11-06] MEDS: PANTOPRAZOLE SODIUM 40 MG VIAL IV PUSH SCH ×2 (11:33→20:52)
[2017-11-06] MEDS: CHOLECALCIFEROL (VIT D3) 1000 UNIT TAB PO SCH (11:36)
[2017-11-06] MEDS: MULTIVITAMIN TAB PO SCH (11:36)
[2017-11-06] MEDS: DOCUSATE SODIUM 100 MG CAP PO SCH ×2 (11:37→20:54)
[2017-11-06] MEDS: METOPROLOL TARTRATE 5 MG/5 ML VIAL IV PUSH PRN (11:44)
[2017-11-06] MEDS: POTASSIUM CHLORIDE 25 MEQ EFFERVESCENT TAB NG SCH ×2 (14:09→20:52)
--- NOTE | 2017-11-06 18:31 | HHI.NPPN ---
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 He has been having some fatigue and weakness over the past few weeks and a CBC showed a Hgb of 7.2 prompting evaluation at the hospital. The patient's is the primary historian. Was admitted here in Jun for a L femur fx that he sustained at home while turning while moving TV tray causing a twist and fall type injury on his left leg. reports spiral fracture of his left femur that he underwent ORIF. He subsequently developed a DVT in the same leg. Renal functions during that admission were overall normal with SCr at 0.8 baseline. Serum calcium normal at this admission at 8.6-9.0. In August, he developed A fib with RVR and had acute renal insufficiency though nephrology services were not called as his functions improved with correction of RVR (admitting SCr 2.40 on 08/29 and discharge on 09/01 at 1.74). Noted mild hypercalcemia during this admission at 10.7. 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 Byrne, but was many years ago as per the . Says that he never underwent bone marrow bx, but had multiple labs that "didn't change" so they opted to stop following up. Given his recent anemia, his PCP did refer him to Dr. Jordyn Garcia, but appointment not until November. No known CKD hx. Denies any recent NVD No NSAID use No recent abx. Besides the aforementioned health history as of recent, he has been in his usual state of health as per his . Has been on Calcium 600mg with 500IU Vitamin D, with an additional Vitamin D3 1000IU daily since his femur fx. Admitting SCr 2.11 that has improved to 4.47 at consult. Serum CCa 12.9 at admission Interval History The case was discussed with Dr. Randall of palliative care prior to seeing the patient. Further discussion was going to take place with the patient and his regarding quality of life issues and prognosis associated with ongoing dialysis however the patient and have decided to discontinue dialysis at this time and proceed with comfort care. Review of Systems General Constitutional: Fatigue General Remarks Unable to obtain Objective Data Data 11/06/17 11/07/17 19:00 07:00 Output Total 2025 ml Balance -2025 ml Output Urine Total 25 ml Hemodialysis 2000 ml Vital Signs Date Time Temp Pulse Resp B/P (MAP) Pulse Ox O2 Delivery O2 Flow Rate FiO2 11/06/17 18:00 93 11/06/17 16:00 98.8 96 17 143/68 (93) 95 11/06/17 16:00 96 11/06/17 14:00 90 11/06/17 12:00 97.7 103 23 119/57 (77) 91 11/06/17 12:00 103 11/06/17 10:00 146 11/06/17 08:49 93 Nasal Cannula 2.00 11/06/17 08:00 97.7 133 29 151/111 (124) 95 11/06/17 08:00 133 11/06/17 08:00 95 2.00 11/06/17 06:00 93 11/06/17 04:00 98.7 94 19 146/76 (99) 95 11/06/17 04:00 94 11/06/17 02:00 93 11/06/17 00:00 89 11/06/17 00:00 98.5 89 19 120/67 (84) 95 11/05/17 22:00 99 11/05/17 20:50 98 Nasal Cannula 3.50 11/05/17 20:00 98.8 99 19 124/77 (93) 98 11/05/17 20:00 99 11/05/17 19:00 95 Nasal Cannula 2.00 -: 11/06/17 0427 11/06/17 0427 Tubes & Lines: Vas-Cath Physical Exam General Appearance: Painful Eyes Eye Exam: Sclera White Pulmonary Resp Exam: Clear Bilaterally, Breath Sounds Equal, No Distress Cardiology CV Exam: Regular, Normal Sinus Rhythm Gastrointestinal/Abdomen GI Exam: Soft, Non-Tender Genitourinary Exam: Clear Urine Integumentary Skin Exam: Clear, Warm Extremeties Extremities Exam: Moderate Edema Neurologic Neuro Exam: Obtunded Assessment/Plan Discussed Condition With: Patient, Spouse Problem List: (1) Acute renal failure ICD Codes: N17.9 - Acute kidney failure, unspecified Status: Acute Plan: There is no signs of renal recovery at this point in time. Patient and have decided to discontinue dialysis and given the patient's comorbidities associated debilitation as well prognosis and quality of life would continue dialysis this would appear to be an appropriate decision. We will defer to primary care as far as making arrangements for comfort care is concerned. We will have Vas-Cath removed. At this point in time will sign off. Medications should be adjusted for the patient's renal decline. Avoid nephrotoxic agents such as iodinated contrast dyes and NSAIDs. Avoid gadolinium. (2) Hypercalcemia ICD Codes: E83.52 - Hypercalcemia Status: Resolved Plan: 2/2 to MM (3) Retroperitoneal hematoma ICD Codes: K66.1 - Hemoperitoneum Status: Acute Plan: Vascular surgical note reviewed. CTA deferred for now. (4) Atrial fibrillation ICD Codes: I48.91 - Unspecified atrial fibrillation Plan: Management as per primary team (5) HTN (hypertension) ICD Codes: I10 - Essential (primary) hypertension Status: Chronic Juan Ramon Carlson MD Nov 06, 2017 18:31
[2017-11-06] MEDS: SODIUM CHLORIDE 0.9% FLUSH 10 ML FLUSH IV FLUSH PRN (20:54)
--- NOTE | 2017-11-06 20:57 | HHI.HCPN ---
Reason for visit a. To assist with evaluation and management of symptoms including: pain; confusion b. To assist medical decision maker(s) with: better understanding of current medical conditions; weighing benefits/burdens of medical treatment options; making medical treatment decisions. . Subjective/Interval History Patient had undergone dialysis prior to my visit. He is able to smile. He doesn't really remember the dialysis session he just completed and can't tell me much about it. Nurse says he was complaining about it when family was out of the room and told her he did not want to do it anymore. Patient reports pain in the abdomen but is unable to qualify or quantify it. He received morphine earlier today. He continues to be slow in processing information. Appetite is poor and he is eating at best 10-25% of meals. Some answers appear to make sense, but he quickly derails and fogets the question that was being asked. He is certainly unable to have a goals of treatment discussion. Case and prognosis discussed with Dr. Carlson. . Family/friend interactions I spoke with family twice. I spoke with and daughter at bedside and then out in the [place] afterwards. I then spoke by phone this evening. During our initial conversation we once again went over the patient's problems and what he is facing. Family understands we will not be treating the myeloma and anemia is likely to worsen. They understand that he is not meeting nutritional goals and he would need a feeding tube if they wanted to sustain him. They realize he would not be happy going back and forth to a dialysis center. they realize he would need a perma-cath placed if he wished to continue dialysis but the dialysis would not help with nutrition or prevent the Hg from decreasing. brought in a copy of the living will which clearly states he would not want life prolonging measures (including artificial nutrition/hydration) if he were found to have a terminal illness and says he clearly understood what these things meant when he completed the documents. called me this evening and after further thought and discussion with family has decided NOT to continue with dialysis. she is open to hospice consultation. . Advance Directives Living Will: Copy in medical record Health Care Surrogate: Copy in medical record Durable Power of Police Surgeon: Never completed Advance Directive Specifics Date completed: 12/16/1998 . . Health Care Surrogate(s): -- Jade -- is the designated health care surrogate. . . Documented care wishes: This has typical living will language and patient would NOT want life prolonging measures should he be found to have a terminal or end stage condition. . . Significant change in goals: Family has decided to transition primarily to comfort oriented care. . Objective Vital Signs Date Time Temp Pulse Resp B/P (MAP) Pulse Ox O2 Delivery O2 Flow Rate FiO2 11/06/17 18:00 93 11/06/17 16:00 98.8 96 17 143/68 (93) 95 11/06/17 16:00 96 11/06/17 14:00 90 11/06/17 12:00 97.7 103 23 119/57 (77) 91 11/06/17 12:00 103 11/06/17 10:00 146 11/06/17 08:49 93 Nasal Cannula 2.00 11/06/17 08:00 97.7 133 29 151/111 (124) 95 11/06/17 08:00 133 11/06/17 08:00 95 2.00 11/06/17 06:00 93 11/06/17 04:00 98.7 94 19 146/76 (99) 95 11/06/17 04:00 94 11/06/17 02:00 93 11/06/17 00:00 89 11/06/17 00:00 98.5 89 19 120/67 (84) 95 11/05/17 22:00 99 11/05/17 20:50 98 Nasal Cannula 3.50 . Physical Exam CONSTITUTIONAL/GENERAL: This is an adequately nourished patient, awake,in an MICU bed. No obvious distress. Cognitively slow, but answers mostly appropriate TUBES/LINES/DRAINS: Nasal cannula oxygen; Mathis catheter; peripheral IV; vas cath right jugular vein SKIN: No jaundice, rashes, or lesions. No wounds seen anteriorly. Skin temperature appropriate. Not diaphoretic. EYES: Pupils equal and round. Extraocular motions intact. No scleral icterus. No injection or drainage. Fundi not examined. ENT: Hearing grossly normal. Nose without bleeding or purulent drainage. Throat without visible erythema, exudates, masses, or lesions. NECK: Trachea midline. CARDIOVASCULAR: Normal rate. Irregularly irregular rhythm without murmurs, gallops, or rubs. No JVD. RESPIRATORY/CHEST: Symmetric, unlabored respirations. Clear to auscultation. Breath sounds equal bilaterally. No wheezes, rales, or rhonchi. GASTROINTESTINAL: Abdomen soft, non-tender, nondistended. No hepato-splenomegaly , or palpable masses. No guarding. Bowel sounds present. GENITOURINARY: Without palpable bladder distension. Mathis catheter in place. Blood-tinged urine in Mathis catheter. MUSCULOSKELETAL: Extremities without clubbing, cyanosis. Moderate edema in both lower extremities. No mottling. LYMPHATICS: Not examined. NEUROLOGICAL: Awake and alert. Motor and sensory grossly within normal limits. Follows commands. Moves all extremities. Processes questions slowly. Intermittent confusion. PSYCHIATRIC: No obvious anxiety/depression. No apparent hallucinations or other psychotic thought process. . Diagnostic Tests Laboratory Laboratory Tests Test 11/04/17 06:47 11/05/17 06:43 11/05/17 06:45 11/06/17 04:27 White Blood Count 10.2 TH/MM3 (4.0-11.0) 9.9 TH/MM3 (4.0-11.0) 9.1 TH/MM3 (4.0-11.0) Red Blood Count 3.04 MIL/MM3 (4.50-5.90) 3.32 MIL/MM3 (4.50-5.90) 3.28 MIL/MM3 (4.50-5.90) Hemoglobin 8.7 GM/DL (13.0-17.0) 9.6 GM/DL (13.0-17.0) 9.3 GM/DL (13.0-17.0) Hematocrit 25.9 % (39.0-51.0) 28.4 % (39.0-51.0) 28.1 % (39.0-51.0) Mean Corpuscular Volume 85.2 FL (80.0-100.0) 85.4 FL (80.0-100.0) 85.7 FL (80.0-100.0) Mean Corpuscular Hemoglobin 28.7 PG (27.0-34.0) 28.7 PG (27.0-34.0) 28.4 PG (27.0-34.0) Mean Corpuscular Hemoglobin Concent 33.7 % (32.0-36.0) 33.6 % (32.0-36.0) 33.1 % (32.0-36.0) Red Cell Distribution Width 15.5 % (11.6-17.2) 15.6 % (11.6-17.2) 15.4 % (11.6-17.2) Platelet Count 154 TH/MM3 (150-450) 166 TH/MM3 (150-450) 158 TH/MM3 (150-450) Mean Platelet Volume 8.1 FL (7.0-11.0) 7.8 FL (7.0-11.0) 7.7 FL (7.0-11.0) Neutrophils (%) (Auto) 90.2 % (16.0-70.0) 86.8 % (16.0-70.0) 85.0 % (16.0-70.0) Lymphocytes (%) (Auto) 3.5 % (9.0-44.0) 6.1 % (9.0-44.0) 6.2 % (9.0-44.0) Monocytes (%) (Auto) 3.3 % (0.0-8.0) 3.9 % (0.0-8.0) 5.3 % (0.0-8.0) Eosinophils (%) (Auto) 2.8 % (0.0-4.0) 2.7 % (0.0-4.0) 3.1 % (0.0-4.0) Basophils (%) (Auto) 0.2 % (0.0-2.0) 0.5 % (0.0-2.0) 0.4 % (0.0-2.0) Neutrophils # (Auto) 9.2 TH/MM3 (1.8-7.7) 8.6 TH/MM3 (1.8-7.7) 7.7 TH/MM3 (1.8-7.7) Lymphocytes # (Auto) 0.4 TH/MM3 (1.0-4.8) 0.6 TH/MM3 (1.0-4.8) 0.6 TH/MM3 (1.0-4.8) Monocytes # (Auto) 0.3 TH/MM3 (0-0.9) 0.4 TH/MM3 (0-0.9) 0.5 TH/MM3 (0-0.9) Eosinophils # (Auto) 0.3 TH/MM3 (0-0.4) 0.3 TH/MM3 (0-0.4) 0.3 TH/MM3 (0-0.4) Basophils # (Auto) 0.0 TH/MM3 (0-0.2) 0.0 TH/MM3 (0-0.2) 0.0 TH/MM3 (0-0.2) CBC Comment DIFF FINAL AUTO DIFF DIFF FINAL Differential Comment FINAL DIFF MANUAL Blood Urea Nitrogen 53 MG/DL (7-18) 36 MG/DL (7-18) 48 MG/DL (7-18) Creatinine 5.42 MG/DL (0.60-1.30) 4.66 MG/DL (0.60-1.30) 5.91 MG/DL (0.60-1.30) Random Glucose 125 MG/DL (74-106) 109 MG/DL (74-106) 112 MG/DL (74-106) Total Protein 5.9 GM/DL (6.4-8.2) 6.3 GM/DL (6.4-8.2) Albumin 2.5 GM/DL (3.4-5.0) 2.7 GM/DL (3.4-5.0) Calcium Level 7.6 MG/DL (8.5-10.1) 7.6 MG/DL (8.5-10.1) 7.6 MG/DL (8.5-10.1) Alkaline Phosphatase 86 U/L (45-117) 102 U/L (45-117) Aspartate Amino Transf (AST/SGOT) 50 U/L (15-37) 41 U/L (15-37) Alanine Aminotransferase (ALT/SGPT) 116 U/L (12-78) 106 U/L (12-78) Total Bilirubin 0.7 MG/DL (0.2-1.0) 0.8 MG/DL (0.2-1.0) Sodium Level 140 MEQ/L (136-145) 142 MEQ/L (136-145) 140 MEQ/L (136-145) Potassium Level 3.3 MEQ/L (3.5-5.1) 3.2 MEQ/L (3.5-5.1) 3.0 MEQ/L (3.5-5.1) Chloride Level 101 MEQ/L (98-107) 101 MEQ/L (98-107) 100 MEQ/L (98-107) Carbon Dioxide Level 26.5 MEQ/L (21.0-32.0) 30.5 MEQ/L (21.0-32.0) 25.9 MEQ/L (21.0-32.0) Anion Gap 13 MEQ/L (5-15) 11 MEQ/L (5-15) 14 MEQ/L (5-15) Estimat Glomerular Filtration Rate 10 ML/MIN (>89) 12 ML/MIN (>89) 9 ML/MIN (>89) Differential Total Cells Counted 100 Neutrophils % (Manual) 90 % (16-70) Band Neutrophils % 3 % (0-6) Lymphocytes % 3 % (9-44) Monocytes % 1 % (0-8) Eosinophils % 1 % (0-4) Neutrophils # (Manual) 9.4 TH/MM3 (1.8-7.7) Metamyelocytes 1 % (0-1) Myelocytes 1 % (0-0) Platelet Estimate NORMAL (NORMAL) Platelet Morphology Comment NORMAL (NORMAL) Ovalocytes 1+ (NORMAL) Magnesium Level 2.6 MG/DL (1.5-2.5) . Result Diagram: 11/06/17 0427 11/06/17 0427 Microbiology Microbiology Date/Time Source Procedure Growth Status 10/24/17 13:55 Blood Peripheral Aerobic Blood Culture - Final NO GROWTH IN 5 DAYS Complete 10/24/17 13:55 Blood Peripheral Anaerobic Blood Culture - Final NO GROWTH IN 5 DAYS Complete 10/19/17 12:30 Stool Stool Stool Occult Blood (NAOMI) - Final HEMOCCULT NEGATIVE Complete 10/24/17 09:11 Sputum Endotracheal Gram Stain - Final Complete 10/24/17 09:11 Sputum Endotracheal Sputum Culture - Final HEAVY GROWTH NORMAL RESPIRATORY JANENE Complete 10/24/17 09:00 Urine Catheterized Urine Urine Culture - Final NO GROWTH IN 48 HOURS. Complete . Imaging Last Impressions Chest X-Ray 11/04/17 0000 Signed Impressions: CONCLUSION: Minimal bibasilar parenchymal changes without pneumothorax or failure Abdomen/Pelvis CT 10/31/17 1500 Signed Impressions: CONCLUSION: 1. Stable right retroperitoneal hemorrhage. 2. Stable effusions and bibasilar consolidation. 3. Cholelithiasis. Although the gallbladder is well-distended I see no pericho lecystic fluid or gallbladder wall thickening. If assessment of acute cholecyst itis is needed I would suggest an ultrasound. Head CT 10/31/17 Signed Impressions: CONCLUSION: 1. Stable exam without evidence of acute infarct, hemorrhage, mass or edema. 2. No change compared to earlier study on 10/23 Brain MRI 10/24/17 0600 Signed Impressions: CONCLUSION: Negative MR Brain non contrast. Neck Magnetic Resonance Angiography 10/24/17 Signed Impressions: CONCLUSION: Normal study __ Percent stenosis is calculated using the diameter of the stenotic region over t he diameter of the normal distal internal carotid artery Head Magnetic Resonance Angiography 10/24/17 Signed Impressions: CONCLUSION: Negative MRA Cow ([place] [facility] [place]) non contrast. Cervical Spine MRI 10/24/17 Signed Impressions: CONCLUSION: 1. 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 2. 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 3. Multilevel significant neural foraminal narrowing as detailed at each level in the above discussion. 4. Lesion involving the spinous process of T2. This is incompletely characteri zed on this exam. Consider CT scan to further assess. Bone Biopsy CT 10/23/17 Signed Impressions: CONCLUSION: 1. Uncomplicated CT guided bone marrow aspirate. 2. Uncomplicated CT guided bone marrow biopsy. Bone Osseous Survey 10/20/17 Signed Impressions: CONCLUSION: Ill-defined lucencies and patchy cortical thinning of multiple bones, primarily the long bones and especially the right tibia and fibula. Extensive multiple m yeloma could certainly have this appearance in the proper clinical setting. Renal Ultrasound 10/19/17 Signed Impressions: CONCLUSION: 1. Negative renal sonogram. . Procedures Intubation/mechanical ventilation Bone marrow biopsy Vas-cath placement . Assessment and Plan Disease Oriented Problem List: (1) Multiple myeloma (2) Acute renal failure (3) Retroperitoneal hematoma (4) Anemia (5) Atrial fibrillation (6) Type 2 diabetes mellitus (7) Hypothyroidism (8) Hypercalcemia Symptom Scale: (1) Pain 0-10 Scale: Unable to quantify Comment: Pain appears to be mostly originating from retroperitoneal hematoma. Helped by morphine which has a long duration of action due to renal failure. . (2) Encephalopathy 0-10 Scale: Unable to quantify Comment: Patient has intermittent confusion that is probably a multi-factor encephalopathy -- uremia, medications, etc. . Pertinent Non-Medical Issues Psychosocial: Well supported by spouse and 4 children. Two sons live locally. Spiritual: Jain. Spirituality is important to him -- "I'm a good Druze." However, he does not want pinball machine repairer visits. Legal: Living will and Health care surrogate designation now on chart. Ethical issues impacting care: Patient has waxing waning capacity. . Important Contacts * Jade Mcintosh (spouse) [phone]; [phone] . Prognosis Patient remains quite debilitated since his early June when he fell and fractured his hip. He seems to have evolved from a Monoclonal Gammopathy of Uncertain Significance to multiple myeloma. Since October 18, when he was admitted , he has been having complications and setbacks including bleeding ( retroperitineal hematoma); renal failure now requiring regular dialysis; episodes of altered mental status; hypotension. The patient is now deconditioned and getting him mobile again will be difficult. The patient is tired and no longer wants to fight. He has been very clear that he wants to forego further life prolonging measures and focus on comfort care. It is feasible that some improved quality of life might be a possibility if he continues with dialysis, accepts chemotherapy, and work hard in rehab. He does not want any of those. Oncology feels he could not tolerate chemo until he gets stronger and the chances of that happening keep declining. If he opts for comfort centered care, he would be a candidate for hospice. . . Code Status: No Code Plan == Code Status -- NO CODE . Family had requested this. Family is in agreement now and order changed to DNR status on 11/05/17 == Decision making: Patient is intermittently confused and takes a while to process information. When most alert and opoids are clear, he is probably capacitated. When dialysis is due and he is using opioids, he needs help with decisions. brought in an advance directive on 11/06/17 that was completed in 1998. is the health care surrogate. == Goals of medical treatment. Patient was quite clear he wanted comfort measures only on 11/04 and was less clear on 11/05/17. Family had remained reluctant to transition to comfort measures . They brought in the living will on 11/06 which is pretty clear that he would not want life prolonging measures. has decided on 11/06 that they will stop dialysis. They have agreed to a hospice consult. == Symptoms * Pain: Pain has mostly been in the right hip/flank area and has been attributed to his hematoma. He also has discomfort from prolonged bedbound status. He is getting reasonable relief from opiate anaglesics. * Encephalopathy: Intermittent confusion probably from multi-factorial delirium. This is mild. Recommend non-pharmacologic approach only at this time. == Case and prognosis discussed in person with Dr. Carlson. == Hospice consult requested today after discussion with family. Should they decide on hospice, will probably opt for transfer to a care center. Off dialysis, is likely to come well under two weeks. == Palliative care will continue to follow to assist with symptom management and to further clarify goals of medical treatment as the clinical course evolves. . . Time Spent Total Floor Time (mins): 40 (Total time included chart review; patient exam; collaboration with primary nurse; above referenced family discussion; review of advance directives; discussion with leadlighter; telephone conversation later with spouse. ) Face to Face Time (mins): 15 >50% Counseling/Coord of Care: Yes Attestation To help prompt me to consider important information that might be impacting today's encounter and assessment, information from prior notes written by myself or my colleagues may have been "brought forward" into today's note. My signature on this note, however, is an attestation that I personally performed the exam, history, and/or decision-making noted today, and, unless otherwise indicated, the interactions with patient, family, and staff as well as the review of records all occurred today. I also attest that the listed assessment and stated plan reflect my best clinical judgment today based on the combination of historical information, prior notes, and today's exam/ interactions. When time spent is documented, it refers only to time spent today by the signer, or if indicated, combined time spent today by collaborating physician/nurse practitioner. Wayne Randall MD Nov 06, 2017 20:57
[2017-11-07] VITALS (11 sets, daily range): BP systolic 110–134; BP diastolic 60–74; PULSE 60–144; RESP 14–19; TEMP 98.3–99; O2SAT 95–99
[2017-11-07] MEDS: INSULIN ASPART SUPPLEMENTAL SCALE SQ SCH ×3 (02:00→13:13)
[2017-11-07] MEDS: METOPROLOL TARTRATE 5 MG/5 ML VIAL IV PUSH PRN (02:13)
[2017-11-07] MEDS: DILTIAZEM HCL 60 MG TAB PO SCH ×3 (02:13→13:13)
[2017-11-07] MEDS: MORPHINE SULFATE 4 MG/ML INJ IV PRN ×3 (04:04→11:26)
[2017-11-07 04:40] LABS: AUTOMATED NEUTROPHIL # 6.6 TH/MM3 (1.8-7.7); BASOPHIL % 0.3 % (0.0-2.0); EOSINOPHIL # 0.2 TH/MM3 (0-0.4); EOSINOPHIL % 2.1 % (0.0-4.0); HEMATOCRIT 28.9 % (39.0-51.0); HEMOGLOBIN 9.6 GM/DL (13.0-17.0); LYMPH % 8.3 % (9.0-44.0); LYMPHOCYTE # 0.7 TH/MM3 (1.0-4.8); MEAN CELL VOLUME 86.1 FL (80.0-100.0); MEAN CORPUSCULAR HEMOGLOBIN 28.6 PG (27.0-34.0); MEAN CORPUSCULAR HGB CONC 33.2 % (32.0-36.0); MEAN PLATELET VOLUME 7.8 FL (7.0-11.0); MONO % 6.9 % (0.0-8.0); MONOCYTE # 0.5 TH/MM3 (0-0.9); NEUT % 82.4 % (16.0-70.0); PLATELET COUNT 151 TH/MM3 (150-450); RED BLOOD COUNT 3.35 MIL/MM3 (4.50-5.90); RED CELL DISTRIBUTION WIDTH 15.7 % (11.6-17.2); WHITE BLOOD COUNT 7.9 TH/MM3 (4.0-11.0)
[2017-11-07 05:12] LABS: CALCIUM 7.6 MG/DL (8.5-10.1); CREATININE 4.89 MG/DL (0.60-1.30); MAGNESIUM 2.3 MG/DL (1.5-2.5)
[2017-11-07] MEDS: LEVOTHYROXINE SODIUM 75 MCG TAB PO SCH (06:06)
[2017-11-07] MEDS: DOCUSATE SODIUM 100 MG CAP PO SCH (07:09)
[2017-11-07] MEDS: CHLORHEXIDINE 0.12% (ORAL KIT) 15 ML CUP MT SCH (07:10)
[2017-11-07] MEDS: SODIUM CHLORIDE 0.9% FLUSH 10 ML FLUSH IV FLUSH SCH (07:42)
[2017-11-07] MEDS: PANTOPRAZOLE SODIUM 40 MG VIAL IV PUSH SCH (07:42)
[2017-11-07] MEDS: POTASSIUM CHLORIDE 25 MEQ EFFERVESCENT TAB NG SCH ×2 (07:43→07:47)
[2017-11-07] MEDS: MULTIVITAMIN TAB PO SCH ×2 (07:43→07:47)
[2017-11-07] MEDS: METOPROLOL TARTRATE 50 MG TAB PO SCH (07:43)
[2017-11-07] MEDS: CHOLECALCIFEROL (VIT D3) 1000 UNIT TAB PO SCH ×2 (07:43→07:47)
--- NOTE | 2017-11-07 09:47 | HHI.PR ---
Subjective Remarks Follow up renal failure, myeloma. Patient is sleeping. He and his family have requested comfort care measures only and Hospice consult is pending. Objective Vitals Vital Signs Date Time Temp Pulse Resp B/P (MAP) Pulse Ox O2 Delivery O2 Flow Rate FiO2 11/07/17 08:00 125 11/07/17 08:00 98.4 125 15 134/69 (90) 99 11/07/17 07:00 98 Nasal Cannula 2.00 11/07/17 06:00 128 16 97 11/07/17 06:00 128 11/07/17 05:00 98 11/07/17 05:00 98 14 98 11/07/17 04:00 107 11/07/17 04:00 98.7 107 19 132/68 (89) 97 11/07/17 03:00 102 16 97 11/07/17 03:00 102 11/07/17 02:00 144 16 110/74 (86) 97 11/07/17 02:00 144 11/07/17 01:00 136 11/07/17 01:00 136 18 95 11/07/17 00:00 114 11/07/17 00:00 99.0 114 17 113/61 (78) 96 11/06/17 23:00 103 11/06/17 23:00 103 16 98 11/06/17 22:00 106 11/06/17 22:00 106 18 138/70 (92) 97 11/06/17 21:10 97 Nasal Cannula 2.00 11/06/17 21:00 101 27 98 11/06/17 21:00 101 11/06/17 20:00 92 11/06/17 20:00 99.3 92 22 118/68 (85) 97 11/06/17 19:00 97 Nasal Cannula 2.00 11/06/17 18:00 93 11/06/17 16:00 98.8 96 17 143/68 (93) 95 11/06/17 16:00 96 11/06/17 14:00 90 11/06/17 12:00 97.7 103 23 119/57 (77) 91 11/06/17 12:00 103 11/06/17 10:00 146 I/O 11/06/17 11/06/17 11/06/17 11/07/17 11/07/17 11/07/17 07:00 15:00 23:00 07:00 15:00 23:00 Intake Total 200 ml 50 ml Output Total 50 ml 2000 ml 25 ml 30 ml Balance 150 ml -2000 ml -25 ml 20 ml Intake Oral 200 ml 50 ml Output Urine Total 50 ml 25 ml 30 ml Hemodialysis 2000 ml # Bowel Movements 1 1 Result Diagram: 11/07/17 0358 11/07/17 0358 Imaging Last Impressions Chest X-Ray 11/04/17 0000 Signed Impressions: CONCLUSION: Minimal bibasilar parenchymal changes without pneumothorax or failure Abdomen/Pelvis CT 10/31/17 1500 Signed Impressions: CONCLUSION: 1. Stable right retroperitoneal hemorrhage. 2. Stable effusions and bibasilar consolidation. 3. Cholelithiasis. Although the gallbladder is well-distended I see no pericho lecystic fluid or gallbladder wall thickening. If assessment of acute cholecyst itis is needed I would suggest an ultrasound. Head CT 10/31/17 0000 Signed Impressions: CONCLUSION: 1. Stable exam without evidence of acute infarct, hemorrhage, mass or edema. 2. No change compared to earlier study on 10/23 Brain MRI 10/24/17 0600 Signed Impressions: CONCLUSION: Negative MR Brain non contrast. Neck Magnetic Resonance Angiography 10/24/17 0000 Signed Impressions: CONCLUSION: Normal study __ Percent stenosis is calculated using the diameter of the stenotic region over t he diameter of the normal distal internal carotid artery Head Magnetic Resonance Angiography 10/24/17 0000 Signed Impressions: CONCLUSION: Negative MRA Cow ([place] [facility] [place]) non contrast. Cervical Spine MRI 10/24/17 0000 Signed Impressions: CONCLUSION: 1. 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 2. 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 3. Multilevel significant neural foraminal narrowing as detailed at each level in the above discussion. 4. Lesion involving the spinous process of T2. This is incompletely characteri zed on this exam. Consider CT scan to further assess. Bone Biopsy CT 10/23/17 0000 Signed Impressions: CONCLUSION: 1. Uncomplicated CT guided bone marrow aspirate. 2. Uncomplicated CT guided bone marrow biopsy. Bone Osseous Survey 10/20/17 0000 Signed Impressions: CONCLUSION: Ill-defined lucencies and patchy cortical thinning of multiple bones, primarily the long bones and especially the right tibia and fibula. Extensive multiple m yeloma could certainly have this appearance in the proper clinical setting. Renal Ultrasound 10/19/17 0000 Signed Impressions: CONCLUSION: 1. Negative renal sonogram. Objective Remarks General: Elderly male in no acute distress. Heart: Regular rate and rhythm. No murmur. Lungs: Clear to auscultation bilaterally. No wheezes, rales, or rhonchi. Breathing is nonlabored. Abdomen: Soft, nontender, nondistended. Extremities: Trace to 1+ bilateral lower extremity edema. Psych: Sleeping. Procedures 10/23/17 CT-guided bone marrow biopsy 10/24/17 EGD 10/24/17 endotracheal intubation 10/26/17 right internal jugular Vas-Cath placement Urinary Catheter: Yes Assessment to: Continue Mathis insert reason: End of Life Date of Insertion: Oct 26, 2017 A/P Problem List: (1) Acute renal failure ICD Code: N17.9 - Acute kidney failure, unspecified Status: Acute (2) Hypercalcemia ICD Code: E83.52 - Hypercalcemia Status: Resolved (3) Symptomatic anemia ICD Code: D64.9 - Anemia, unspecified Status: Acute (4) Left leg DVT ICD Code: I82.402 - Acute embolism and thrombosis of unspecified deep veins of left lower extremity Status: Chronic (5) Type 2 diabetes mellitus ICD Code: E11.9 - Type 2 diabetes mellitus without complications Status: Acute (6) HTN (hypertension) ICD Code: I10 - Essential (primary) hypertension Status: Chronic Assessment and Plan 1. Acute encephalopathy: Resolved. 2. Hemorrhagic shock: Resolved. 3. Retroperitoneal hemorrhage: Nonoperative management recommended by vascular surgery. 4. Atrial fibrillation/flutter: Continue Cardizem, Lopressor. 5. Hypercalcemia: Resolved. Calcium now slightly low. 6. Acute renal failure superimposed on chronic kidney disease: Appreciate nephrology recommendations. Vas-Cath in place for hemodialysis. Patient has decided that he does not want any further dialysis. 7. MGUS, now apparently myeloma: Appreciate hematology/oncology recommendations. 8. Hypothyroidism: Continue Synthroid. 9. Hypertension: Continue Cardizem, Lopressor. Clonidine as needed. 10. Anemia: Status post transfusion of 8 units PRBCs during this hospitalization. H&H are stable. 11. GI prophylaxis: PPI. 12. DVT prophylaxis: SCDs. 13. Palliative care assistance appreciated. Patient wants comfort care measures. Hospice consultation is pending. 14. Hypokalemia: Still low. The patient is refusing supplementation. Discharge Planning Hospice consultation pending. If the patient and his family choose hospice care , anticipate discharge to hospice care center later today. Eduard Uribe MD Nov 07, 2017 09:47
[2017-11-07] MEDS ORDERED: DILT60TA33 PO (10:47)
[2017-11-07] MEDS ORDERED: METO-309 PO (10:47)
--- NOTE | 2017-11-07 10:48 | HHI.DCPOC ---
Discharge Care Plan Diagnosis: (1) Encephalopathy (2) Pain (3) Multiple myeloma (4) Hypothyroidism (5) Anemia (6) Hypercalcemia (7) Retroperitoneal hematoma (8) Acute renal failure (9) Type 2 diabetes mellitus (10) Atrial fibrillation (11) Hypertension Goals to Promote Your Health * To prevent worsening of your condition and complications * To maintain your health at the optimal level Directions to Meet Your Goals Take your medications as prescribed Follow your dietary instruction Follow activity as directed Keep your appointments as scheduled Take your immunizations and boosters as scheduled If your symptoms worsen call your PCP, if no PCP go to Urgent Care Center or Emergency Room Smoking is Dangerous to Your Health. Avoid second hand smoke Call the 24-hour hour crisis hotline for domestic abuse at Eduard Uribe MD Nov 07, 2017 10:48
--- NOTE | 2017-11-07 10:55 | HHI.DS ---
Discharge Summary Admission Date Oct 18, 2017 at 15:21 Discharge Date: Nov 07, 2017 Admitting Diagnosis symptomatic anemia (1) Acute renal failure ICD Code: N17.9 - Acute kidney failure, unspecified Status: Acute (2) Hypercalcemia ICD Code: E83.52 - Hypercalcemia Status: Resolved (3) Symptomatic anemia ICD Code: D64.9 - Anemia, unspecified Status: Acute (4) Left leg DVT ICD Code: I82.402 - Acute embolism and thrombosis of unspecified deep veins of left lower extremity Status: Chronic (5) Type 2 diabetes mellitus ICD Code: E11.9 - Type 2 diabetes mellitus without complications Status: Acute (6) HTN (hypertension) ICD Code: I10 - Essential (primary) hypertension Status: Chronic Procedures 10/23/17 CT-guided bone marrow biopsy 10/24/17 EGD 10/24/17 endotracheal intubation 10/26/17 right internal jugular Vas-Cath placement Brief History - From Admission Mr. Mcintosh is an 82-year-old male. He came in the hospital secondary to progressive anemia. Hemoglobin today is 6.9. He has a past history of bleed which was not found to be GI related. Additional findings today are acute renal failure and hypercalcemia. He recalls that he might have had some kidney disease in the past but cannot specify. Looking in our past records his highest creatinine value have been 3.5 but currently his creatinine levels at 5.11. She does not report being dehydrated. He has had a fracture approximately 3 months ago and has been on bedrest until recently for this. Additionally he is on Eliquis. Eliquis combined with his renal condition may be contributory to blood loss. Renal dysfunction can also be contributory to his hypercalcemia. Shortness of breath and weakness have been his primary complaints. No other complaints today. CBC/BMP: 11/07/17 0358 11/07/17 0358 Significant Findings Laboratory Tests Test 11/05/17 06:43 11/05/17 06:45 11/06/17 04:27 11/07/17 03:58 Red Blood Count 3.32 MIL/MM3 (4.50-5.90) 3.28 MIL/MM3 (4.50-5.90) 3.35 MIL/MM3 (4.50-5.90) Hemoglobin 9.6 GM/DL (13.0-17.0) 9.3 GM/DL (13.0-17.0) 9.6 GM/DL (13.0-17.0) Hematocrit 28.4 % (39.0-51.0) 28.1 % (39.0-51.0) 28.9 % (39.0-51.0) Neutrophils (%) (Auto) 86.8 % (16.0-70.0) 85.0 % (16.0-70.0) 82.4 % (16.0-70.0) Lymphocytes (%) (Auto) 6.1 % (9.0-44.0) 6.2 % (9.0-44.0) 8.3 % (9.0-44.0) Neutrophils # (Auto) 8.6 TH/MM3 (1.8-7.7) Lymphocytes # (Auto) 0.6 TH/MM3 (1.0-4.8) 0.6 TH/MM3 (1.0-4.8) 0.7 TH/MM3 (1.0-4.8) Neutrophils % (Manual) 90 % (16-70) Lymphocytes % 3 % (9-44) Neutrophils # (Manual) 9.4 TH/MM3 (1.8-7.7) Myelocytes 1 % (0-0) Ovalocytes 1+ (NORMAL) Blood Urea Nitrogen 36 MG/DL (7-18) 48 MG/DL (7-18) 32 MG/DL (7-18) Creatinine 4.66 MG/DL (0.60-1.30) 5.91 MG/DL (0.60-1.30) 4.89 MG/DL (0.60-1.30) Random Glucose 109 MG/DL (74-106) 112 MG/DL (74-106) Total Protein 6.3 GM/DL (6.4-8.2) Albumin 2.7 GM/DL (3.4-5.0) Calcium Level 7.6 MG/DL (8.5-10.1) 7.6 MG/DL (8.5-10.1) 7.6 MG/DL (8.5-10.1) Aspartate Amino Transf (AST/SGOT) 41 U/L (15-37) Alanine Aminotransferase (ALT/SGPT) 106 U/L (12-78) Potassium Level 3.2 MEQ/L (3.5-5.1) 3.0 MEQ/L (3.5-5.1) 3.3 MEQ/L (3.5-5.1) Estimat Glomerular Filtration Rate 12 ML/MIN (>89) 9 ML/MIN (>89) 11 ML/MIN (>89) Magnesium Level 2.6 MG/DL (1.5-2.5) Imaging Last Impressions Chest X-Ray 11/04/17 0000 Signed Impressions: CONCLUSION: Minimal bibasilar parenchymal changes without pneumothorax or failure Abdomen/Pelvis CT 10/31/17 1500 Signed Impressions: CONCLUSION: 1. Stable right retroperitoneal hemorrhage. 2. Stable effusions and bibasilar consolidation. 3. Cholelithiasis. Although the gallbladder is well-distended I see no pericho lecystic fluid or gallbladder wall thickening. If assessment of acute cholecyst itis is needed I would suggest an ultrasound. Head CT 10/31/17 0000 Signed Impressions: CONCLUSION: 1. Stable exam without evidence of acute infarct, hemorrhage, mass or edema. 2. No change compared to earlier study on 10/23 Brain MRI 10/24/17 0600 Signed Impressions: CONCLUSION: Negative MR Brain non contrast. Neck Magnetic Resonance Angiography 10/24/17 0000 Signed Impressions: CONCLUSION: Normal study __ Percent stenosis is calculated using the diameter of the stenotic region over t he diameter of the normal distal internal carotid artery Head Magnetic Resonance Angiography 10/24/17 0000 Signed Impressions: CONCLUSION: Negative MRA [place] ([place] [facility] [place]) non contrast. Cervical Spine MRI 10/24/17 0000 Signed Impressions: CONCLUSION: 1. 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 2. 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 3. Multilevel significant neural foraminal narrowing as detailed at each level in the above discussion. 4. Lesion involving the spinous process of T2. This is incompletely characteri zed on this exam. Consider CT scan to further assess. Bone Biopsy CT 10/23/17 Signed Impressions: CONCLUSION: 1. Uncomplicated CT guided bone marrow aspirate. 2. Uncomplicated CT guided bone marrow biopsy. Bone Osseous Survey 10/20/17 Signed Impressions: CONCLUSION: Ill-defined lucencies and patchy cortical thinning of multiple bones, primarily the long bones and especially the right tibia and fibula. Extensive multiple m yeloma could certainly have this appearance in the proper clinical setting. Renal Ultrasound 10/19/17 Signed Impressions: CONCLUSION: 1. Negative renal sonogram. PE at Discharge General: Elderly male in no acute distress. Heart: Regular rate and rhythm. No murmur. Lungs: Clear to auscultation bilaterally. No wheezes, rales, or rhonchi. Breathing is nonlabored. Abdomen: Soft, nontender, nondistended. Extremities: Trace to 1+ bilateral lower extremity edema. Psych: Sleeping. Hospital Course The patient was admitted for evaluation and management of anemia secondary to acute blood loss. He was noted to have acute renal failure. He was placed on IV fluids. He received blood transfusion. Nephrology was consulted. 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 Gastroenterology was consulted. He developed altered mental status, left-sided facial weakness, and difficulty with speech. Stroke alert was called. Patient was evaluated by neurology. He was started on nicardipine drip and transferred to intensive care unit. Critical care was consulted. The patient was not felt to be protecting his airway. He was intubated and placed on mechanical ventilation. Bone marrow biopsy was done and pathology indicated multiple myeloma. He was started on Decadron. Due to his renal failure, Vas-Cath was placed and patient was started on hemodialysis. He was extubated. He developed acute altered mental status again and stroke alert was again called. Neurology felt that this episode was most likely seizure secondary to acute hypotensive episode. The patient developed abdominal pain. CT of the abdomen/ pelvis showed a large left psoas hematoma. Palliative care was consulted for symptom management and clarification of goals of care. The patient indicated that he wanted to pursue comfort care measures. He discussed this with his family and decision was made to discontinue hemodialysis. CODE STATUS was changed to DNR. Hospice was consulted. The patient and his family chose to accept hospice care and arrangements were made for discharge to the hospice care center. Pt Condition on Discharge: Guarded Discharge Disposition: Hospice/Med Facility Discharge Time: > 30 minutes Discharge Instructions DIET: Follow Instructions for: As Tolerated, No Restrictions Speech Therapy-Diet Recommends: Mechanical Soft, [place] Thickened Liquids Activities you can perform: Regular-No Restrictions New Medications: Diltiazem (Cardizem) 60 Mg Tab 60 MG PO Q6H for Blood Pressure Management, #90 TAB Metoprolol Tartrate (Lopressor) 50 Mg Tab 50 MG PO Q12HR for Blood Pressure Management, #60 TAB Continued Medications: Calcium Carbonate-Vitamin D (Calcium 600+D 200) 600-200 Mg-Unit Tab 1 TAB PO BID for Nutritional Supplement, #60 TAB 0 Refills Cholecalciferol (Vitamin D3) 2,000 Unit Cap 2000 UNITS PO DAILY for Nutritional Supplement, #60 CAP 0 Refills Levothyroxine (Levothyroxine) 75 Mcg Tab 75 MCG PO DAILY for Thyroid, #30 TAB 0 Refills Multiple Vitamin (Multiple Vitamin) 1 Tab 1 TAB PO DAILY for Nutritional Supplement, TAB 0 Refills Discontinued Medications: Diltiazem ER 24 HR (Cartia Xt) 120 Mg Caper 240 MG PO BID, #30 CAP 0 Refills Metoprolol Tartrate (Metoprolol Tartrate) 25 Mg Tab 12.5 MG PO BID, #60 TAB 0 Refills Eduard Uribe MD Nov 07, 2017 10:55
[2017-11-07] MEDS: HYDROmorphone HCL PF 2 MG/ML VIAL IV PUSH PRN (13:19)
== END 2017-11-07 13:35 | disposition hospice, inpatient (51) | DRG 840 ==
LOC: NEPC 11:55 → NEDA 14:16 → OBSVTOIN 15:21 → NEPFCDU 15:37 → N06B 16:27 → HCIS 10-23 16:37 → HCIN 10-23 17:13 → HIMN 10-23 22:35
PROVIDERS: ADMIT Family Medicine; ATTEND Family Medicine
PROC: 30233N1 Transfusion of Nonautologous Red Blood Cells into Peripheral Vein, Percutaneous Approach (ICD-10-PCS; principal; 2017-10-18)
PROC: 5A1945Z Respiratory Ventilation, 24-96 Consecutive Hours (ICD-10-PCS; 2017-10-24)
PROC: 0BH18EZ Insertion of Endotracheal Airway into Trachea, Via Natural or Artificial Opening Endoscopic (ICD-10-PCS; 2017-10-24)
PROC: 0DJ08ZZ Inspection of Upper Intestinal Tract, Via Natural or Artificial Opening Endoscopic (ICD-10-PCS; 2017-10-24)
PROC: 02HV33Z Insertion of Infusion Device into Superior Vena Cava, Percutaneous Approach (ICD-10-PCS; 2017-10-26)
PROC: 5A1D70Z Performance of Urinary Filtration, Intermittent, Less than 6 Hours Per Day (ICD-10-PCS; 2017-10-26)
PROC: 30233M1 Transfusion of Nonautologous Plasma Cryoprecipitate into Peripheral Vein, Percutaneous Approach (ICD-10-PCS; 2017-11-01)
PROC: 07DR3ZX Extraction of Iliac Bone Marrow, Percutaneous Approach, Diagnostic (ICD-10-PCS; 2017-11-01)
DX: C90.00 Multiple myeloma not having achieved remission (principal); J96.01 Acute respiratory failure with hypoxia; R57.8 Other shock; N17.9 Acute kidney failure, unspecified; G93.40 Encephalopathy, unspecified; K66.1 Hemoperitoneum; J96.02 Acute respiratory failure with hypercapnia; I48.91 Unspecified atrial fibrillation; I48.92 Unspecified atrial flutter; K92.2 Gastrointestinal hemorrhage, unspecified; M48.02 Spinal stenosis, cervical region; G95.20 Unspecified cord compression; E87.2 Acidosis; E87.0 Hyperosmolality and hypernatremia; D68.69 Other thrombophilia; D62 Acute posthemorrhagic anemia; I12.9 Hypertensive chronic kidney disease with stage 1 through stage 4 chronic kidney disease, or unspecified chronic kidney disease; E11.22 Type 2 diabetes mellitus with diabetic chronic kidney disease; D72.1 Eosinophilia; E83.52 Hypercalcemia; D63.1 Anemia in chronic kidney disease; N18.9 Chronic kidney disease, unspecified; Z96.643 Presence of artificial hip joint, bilateral; Z96.653 Presence of artificial knee joint, bilateral; E03.9 Hypothyroidism, unspecified; E87.6 Hypokalemia; K20.9 Esophagitis, unspecified; G40.909 Epilepsy, unspecified, not intractable, without status epilepticus; M79.81 Nontraumatic hematoma of soft tissue; Z66 Do not resuscitate; R00.1 Bradycardia, unspecified; R53.81 Other malaise; Z51.5 Encounter for palliative care; R00.0 Tachycardia, unspecified; Z85.038 Personal history of other malignant neoplasm of large intestine; Z86.718 Personal history of other venous thrombosis and embolism; Z87.891 Personal history of nicotine dependence; Z79.01 Long term (current) use of anticoagulants; Z80.0 Family history of malignant neoplasm of digestive organs
CPT/HCPCS: 31500; 36430; 36556; 36600; 38222; 70450; 70544; 70547; 70551; 71045; 72141; 74176; 76775; 76937; 77012; 77075; 80048; 80053; 80069; 81001; 81050; 82140; 82232; 82272; 82306; 82397; 82550; 82570; 82607; 82652; 82728; 82784; 82805; 82948; 83036; 83540; 83550; 83605; 83615; 83735; 83883; 83970; 84100; 84155; 84156; 84165; 84166; 84439; 84443; 84484; 85007; 85014; 85018; 85025; 85027; 85097; 85384; 85610; 85730; 85810; 86021; 86160; 86334; 86335; 86803; 86850; 86900; 86901; 86920; 86965; 87040; 87070; 87086; 87205; 87340; 87641; 88184; 88185; 88237; 88264; 88280; 88305; 88311; 88313; 88377; 90935; 93005; 93306; 94002; 94003; 94640; 94664; 95819; 96374; 96375; 99152; 99153; 99285; C1830; C9113; J0630; J1100; J1170; J1580; J1630; J1644; J1815; J1940; J1953; J2060; J2250; J2270; J2310; J2430; J2543; J2720; J3010; J3475; J3480; J7030; J7040; J7050; P9016; P9047